=== PATIENT | male | born 1980 | race Caucasian/White ===

== ENCOUNTER 2016-06-13 18:12 | Emergency (ER) | payer MEDICARE, MEDICAID ==
[~2016-06-13 18:12] MED LIST: /ATOR40TA PO; /PARO37TCR OR; /QUET10TA; /QUET10TA PO; ADDE10CA3 OR; ADDE20CA PO; ADDE30TA PO; ALPRTAB PO; ANBEEL MT; ATEN100T OR; ATEN100T PO; ATEN50TA2 OR; ATEN50TA2 PO; BUDE150T OR; BUSP15TA OR; CELE10TA; CLON1TAB PO; CLOT1CRE4 TOP; COLA100C PO; CONC18TA OR; EFFEXOR XR; FOLI1TAB2 PO; HYDR7.5T PO; HYDR7.5T38 PO; IBUP600T26 PO; IMOD2TAB16 PO; KEFL500C OR; KEFL750C OR; LEVO25TABR OR; LEVO25TABR PO; LORA2TA FT; LORA2TA PO; LORA2TAB OR; MAAL600C PO; MINI2CAP PO; MV-OCAP PO; NEUR300C OR; NEXI1CAP4 PO; NEXI20CA; OXYC1CON3 PO; PARO40TA87 PO; PAXI20TA; PAXI30TA2 PO; PAXI40TA OR; PREV15CA OR; PREV30CA6 PO; PRIL40CA PO; REME15TA OR; REME15TA PO; SERO1TAB3 PO; SERO50TA PO; SEROQUEL; SYNT100T PO; SYNT75TA PO; TENO1TAB5 PO; TRAZ100T OR; TRAZ100T2 PO; TRAZ50TA OR; TYLE325T5 PO; VIST50CA PO; WELL100T OR; WELL100T2 OR; WELLTAB40 PO; XANA1TAB2 PO; XANA2TAB2 OR; ZOFR20TA PO; [UNRECOGNIZED DRUG - OTHER]; [UNRECOGNIZED DRUG - OTHER]; lioresal PO
[2016-06-13] MEDS ORDERED: PENICILLIN V POTASSIUM 500 MG TAB PO ONE (21:30)
--- NOTE | 2016-06-13 21:52 | EDDOCDS ---
Nurse's Notes [facility] Name: Brad Mckinnon Age: 36 yrs Sex: Male : 1980 Arrival Date: 06/13/2016 Time: 18:12 Bed I8 / 16 Private MD: NO PRIMARY PHYSICIAN, . Diagnosis: Dental caries-with pain Presentation: 06/13 18:33 Presenting complaint: Patient states: "my tooth is broken." Pt reports right upper ead tooth broke a few weeks ago. "it's probably infected." pt c/o upper mouth pain. Adult Sepsis Screening: The patient does not have new or worsening altered mentation. Patient's respiratory rate is less than 22. Systolic blood pressure is greater than 100. Patient has a qSOFA score of 0- Negative Sepsis Screen. Suicide/Homicide risk assessment- the patient denies having any suicidal and/or homicidal ideations and does not present with any other emotional, behavioral or mental health complaints. 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 Transition of care: patient was not received from another setting of care. 18:33 Acuity: MARTHA Level 5 ead 18:33 Method Of Arrival: Walkin/Carried/Asstd ead Triage Assessment: 18:36 General: Appears in no apparent distress, comfortable, Behavior is appropriate for age, ead cooperative. Pain: Location: mouth Pain currently is 7 out of 10 on a pain scale. HIV screening NA for this visit Offered previously. EENT: Reports pain in mouth. Derm: Skin is pink, warm & dry. Historical: - Allergies: Haldol (Dystonic reaction); - Home Meds: 1. Inderal LA 80 mg Oral Cs24 twice a day 2. Adderall XR 20 mg oral cp24 three times a day 3. Ativan 1 mg Oral tab once daily 4. Wellbutrin XL 300 mg oral Tb24 once daily 5. Prilosec 20 mg Oral cpDR once daily 6. Synthroid 112 mcg Oral tab 1 tab once daily - PMHx: Depression; ECT; Chronic Pain; hyperlipidemia; Hypertension; Hypothyroidism; panic attach with agrophobia; panic attack with agorphobia; PTSD; Anxiety; ADHD; - PSHx: none; - Social history: Smoking status: Patient states former smoker of tobacco. No barriers to communication noted, The patient speaks fluent Maltese, Speaks appropriately for age. - : The pt / caregiver states he / she is not on anticoagulants. Home medication list is obtained from the patient, [employer] import data. - Exposure Risk Screening:: None identified. Vital Signs: 18:14 BP 156 / 99; Pulse 97; Resp 18 S; Temp 99.4(O); Pulse Ox 99% on R/A; Weight 102.06 kg gr2 (R); Height 5 ft. 9 in. (175.26 cm) (R); Pain 8/10; 21:22 BP 145 / 105 RA Sitting (auto/lg); Pulse 110; Resp 22; Temp 98.6(O); Pulse Ox 97% ; bnb Pain 6/10; 18:14 Body Mass Index 33.23 (102.06 kg, 175.26 cm) gr2 Vitals: 18:14 Log In Time: June 13, 2016 at 18:14. gr2 ED Course: 18:14 Patient visited by Khushi Baker. gr2 18:14 NO PRIMARY PHYSICIAN, . is Private Physician. gr2 18:14 Patient moved to Waiting gr2 18:16 Patient visited by Khushi Baker. gr2 18:23 Patient moved to Pre RCE sew 18:34 Triage Initiated ead 19:51 Christy Lewis,RN is Primary Nurse. sls1 19:51 Patient moved to I8 / 16 sls1 20:04 [facility] F[facility] le 20:26 Patient visited by Laura Romero FNP. le 20:38 Aravind Lewis MD is Referral Physician. le 20:42 Patient visited by Laura Romero FNP. le 21:15 [facility] Payment Agreement was scanned into [email or web address] and attached to record. gjb 21:22 Patient visited by May Jenkins PCA. bnb Administered Medications: 21:51 Drug: Penicillin VK 500 mg [penicillin V potassium 250 mg tablet (2 tabs)] Route: PO; af2 21:51 Not Given (Patient Refused): Naproxen 500 mg PO once; administer with food or milk af2 Order Results: There are currently no results for this order. Outcome: 20:38 Discharge ordered by Provider. le 21:52 Patient left the ED. af2 Signatures: Laura Romero FNP [employer]PECTOR [employer]SEMBLIES [employer] INSTALLATIONS Ericka Hinton, RN RN sls1 Rob, Khushi Maldonado gr2 Debbie,Christy,RN RN deion Meeks,DAVID Etienne RN af2 Jada Lewis Brittney, TERMITE EXTERMINATOR TERMITE EXTERMINATOR bnb MTDD
--- NOTE | 2016-06-13 21:52 | EDDOCDS ---
Physician Documentation [facility] Name: Brad Mckinnon Age: 36 yrs Sex: Male : 1980 Arrival Date: 06/13/2016 Time: 18:12 Bed I8 / 16 Private MD: NO PRIMARY PHYSICIAN, . Disposition: 06/13 20:42 Critical Care: Critical care not applicable. le Disposition: 06/13/16 20:38 Discharged to Home/Self Care. Impression: Dental caries - with pain. - Condition is Stable. - Discharge Instructions: Dental Pain. - Prescriptions for Naprosyn 500 mg Oral Tablet - take 1 tablet by ORAL route 2 times per day take with food; 30 tablet. penicillin V potassium 500 mg Oral Tablet - take 1 tablet by ORAL route 4 times per day for 10 days; 40 tablet. - Medication Reconciliation, Local Pharmacy Hours form. - Follow up: Aravind Lewis MD; When: Call to arrange an appointment; Reason: Recheck today's complaints, Continuance of care. - Problem is new. - Symptoms are unchanged. - Notes: Return to the ED for facial swelling, inability to open your mouth more than the width of 2 fingers, difficulty swallowing/drooling, fever or any other concerns Historical: - Allergies: Haldol (Dystonic reaction); - Home Meds: 1. Inderal LA 80 mg Oral Cs24 twice a day 2. Adderall XR 20 mg oral cp24 three times a day 3. Ativan 1 mg Oral tab once daily 4. Wellbutrin XL 300 mg oral Tb24 once daily 5. Prilosec 20 mg Oral cpDR once daily 6. Synthroid 112 mcg Oral tab 1 tab once daily - PMHx: Depression; ECT; Chronic Pain; hyperlipidemia; Hypertension; Hypothyroidism; panic attach with agrophobia; panic attack with agorphobia; PTSD; Anxiety; ADHD; - PSHx: none; - Social history: Smoking status: Patient states former smoker of tobacco. No barriers to communication noted, The patient speaks fluent Persian, Speaks appropriately for age. - : The pt / caregiver states he / she is not on anticoagulants. Home medication list is obtained from the patient, [employer] import data. - Exposure Risk Screening:: None identified. Vital Signs: 18:14 BP 156 / 99; Pulse 97; Resp 18 S; Temp 99.4(O); Pulse Ox 99% on R/A; Weight 102.06 kg / gr2 225 lbs (R); Height 5 ft. 9 in. (175.26 cm) (R); Pain 8/10; 21:22 BP 145 / 105 RA Sitting (auto/lg); Pulse 110; Resp 22; Temp 98.6(O); Pulse Ox 97% ; bnb Pain 6/10; 18:14 Body Mass Index 33.23 (102.06 kg, 175.26 cm) gr2 MDM: 20:35 Penicillin VK 500 mg PO once ordered. le 20:39 Naproxen 500 mg PO once; administer with food or milk ordered. le 21:01 Financial registration complete. rocky 21:15 [facility] Payment Agreement was scanned into [employer] and attached to record. rocky Administered Medications: 21:51 Drug: Penicillin VK 500 mg [penicillin V potassium 250 mg tablet (2 tabs)] Route: PO; af2 21:51 Not Given (Patient Refused): Naproxen 500 mg PO once; administer with food or milk af2 Signatures: Laura Romero, WARPING MILL OPERATOR Christy BravoRN RN Jaimie Alanis RN RN af2 Jada Lewis The chart was reviewed and I authenticate all verbal orders and agree with the evaluation and treatment provided.Attachments: 21:15 [facility] Payment Agreement rocky [email or web address]
--- NOTE | 2016-06-15 22:53 | EDDOCDS ---
Physician Documentation [facility] Name: Brad Mckinnon Age: 36 yrs Sex: Male : 1980 Arrival Date: 06/13/2016 Time: 18:12 Bed I8 / 16 Private MD: NO PRIMARY PHYSICIAN, . Disposition: 06/13 20:42 Critical Care: Critical care not applicable. le Disposition: 06/13/16 20:38 Discharged to Home/Self Care. Impression: Dental caries - with pain. - Condition is Stable. - Discharge Instructions: Dental Pain. - Prescriptions for Naprosyn 500 mg Oral Tablet - take 1 tablet by ORAL route 2 times per day take with food; 30 tablet. penicillin V potassium 500 mg Oral Tablet - take 1 tablet by ORAL route 4 times per day for 10 days; 40 tablet. - Medication Reconciliation, Local Pharmacy Hours form. - Follow up: Aravind Lewis MD; When: Call to arrange an appointment; Reason: Recheck today's complaints, Continuance of care. - Problem is new. - Symptoms are unchanged. - Notes: Return to the ED for facial swelling, inability to open your mouth more than the width of 2 fingers, difficulty swallowing/drooling, fever or any other concerns Historical: - Allergies: Haldol (Dystonic reaction); - Home Meds: 1. Inderal LA 80 mg Oral Cs24 twice a day 2. Adderall XR 20 mg oral cp24 three times a day 3. Ativan 1 mg Oral tab once daily 4. Wellbutrin XL 300 mg oral Tb24 once daily 5. Prilosec 20 mg Oral cpDR once daily 6. Synthroid 112 mcg Oral tab 1 tab once daily - PMHx: Depression; ECT; Chronic Pain; hyperlipidemia; Hypertension; Hypothyroidism; panic attach with agrophobia; panic attack with agorphobia; PTSD; Anxiety; ADHD; - PSHx: none; - Social history: Smoking status: Patient states former smoker of tobacco. No barriers to communication noted, The patient speaks fluent Occitan, Speaks appropriately for age. - Family history: Not pertinent. - : The pt / caregiver states he / she is not on anticoagulants. Home medication list is obtained from the patient, [employer] import data. - Exposure Risk Screening:: None identified. Vital Signs: 18:14 BP 156 / 99; Pulse 97; Resp 18 S; Temp 99.4(O); Pulse Ox 99% on R/A; Weight 102.06 kg / gr2 225 lbs (R); Height 5 ft. 9 in. (175.26 cm) (R); Pain 8/10; 21:22 BP 145 / 105 RA Sitting (auto/lg); Pulse 110; Resp 22; Temp 98.6(O); Pulse Ox 97% ; bnb Pain 6/10; 18:14 Body Mass Index 33.23 (102.06 kg, 175.26 cm) gr2 MDM: 20:35 Penicillin VK 500 mg PO once ordered. le 20:39 Naproxen 500 mg PO once; administer with food or milk ordered. le 21:01 Financial registration complete. [facility] : [facility] Payment Agreement was scanned into [employer] and attached to record. b 06/14 09:45 T-Sheet-- Draft Copy was scanned into [employer] and attached to record. 09:45 Other: DRUG UTILIZATION REPORT was scanned into [employer] and attached to record. 12:31 T-Sheet-- Draft Copy was scanned into [employer] and attached to record. Administered Medications: 06/13 21:51 Drug: Penicillin VK 500 mg [penicillin V potassium 250 mg tablet (2 tabs)] Route: PO; af2 21:51 Not Given (Patient Refused): Naproxen 500 mg PO once; administer with food or milk af2 Signatures: Jamison Benavides RN RN ms2 Trish Ribera, Reg Reg gb Laura Romero, Christy Issa RN RN ead Fulton, Amber, RN RN af2 Jada Lewis [facility] The chart was reviewed and I authenticate all verbal orders and agree with the evaluation and treatment provided.Attachments: : [facility] Payment Agreement [facility] 12:31 T-Sheet-- Draft Copy Chart Complete MTDD
--- NOTE | 2016-06-15 22:53 | EDDOCDS ---
Nurse's Notes [facility] Name: Brad Mckinnon Age: 36 yrs Sex: Male : 1980 Arrival Date: 06/13/2016 Time: 18:12 Bed I8 / 16 Private MD: NO PRIMARY PHYSICIAN, . Diagnosis: Dental caries-with pain Presentation: 06/13 18:33 Presenting complaint: Patient states: "my tooth is broken." Pt reports right upper ead tooth broke a few weeks ago. "it's probably infected." pt c/o upper mouth pain. Adult Sepsis Screening: The patient does not have new or worsening altered mentation. Patient's respiratory rate is less than 22. Systolic blood pressure is greater than 100. Patient has a qSOFA score of 0- Negative Sepsis Screen. Suicide/Homicide risk assessment- the patient denies having any suicidal and/or homicidal ideations and does not present with any other emotional, behavioral or mental health complaints. Status: Patient is not a well services operator or dependent. Transition of care: patient was not received from another setting of care. 18:33 Acuity: MARTHA Level 5 ead 18:33 Method Of Arrival: Walkin/Carried/Asstd ead Triage Assessment: 18:36 General: Appears in no apparent distress, comfortable, Behavior is appropriate for age, ead cooperative. Pain: Location: mouth Pain currently is 7 out of 10 on a pain scale. HIV screening NA for this visit Offered previously. EENT: Reports pain in mouth. Derm: Skin is pink, warm & dry. Historical: - Allergies: Haldol (Dystonic reaction); - Home Meds: 1. Inderal LA 80 mg Oral Cs24 twice a day 2. Adderall XR 20 mg oral cp24 three times a day 3. Ativan 1 mg Oral tab once daily 4. Wellbutrin XL 300 mg oral Tb24 once daily 5. Prilosec 20 mg Oral cpDR once daily 6. Synthroid 112 mcg Oral tab 1 tab once daily - PMHx: Depression; ECT; Chronic Pain; hyperlipidemia; Hypertension; Hypothyroidism; panic attach with agrophobia; panic attack with agorphobia; PTSD; Anxiety; ADHD; - PSHx: none; - Social history: Smoking status: Patient states former smoker of tobacco. No barriers to communication noted, The patient speaks fluent Danish, Speaks appropriately for age. - Family history: Not pertinent. - : The pt / caregiver states he / she is not on anticoagulants. Home medication list is obtained from the patient, [employer] import data. - Exposure Risk Screening:: None identified. Screenin:30 Screening information is obtained from prior medical records. Fall risk: No risks ms2 identified. Assistance ADL's: requires no assistance with activities of daily living. Abuse/DV Screen: The patient / caregiver reports he/she is: not in a situation that causes fear, pain or injury. Nutritional screening: No deficits noted. Advance Directives: Currently, there is no health care proxy. There is no active DNR order. There is no living will. There is no Power of Faith Healer. Advance directive information has not previously been placed in an [facility] medical record. Further advance directive information is declined. home support is adequate. Assessment: 21:30 Adult Sepsis Screening: The patient does not have new or worsening altered mentation. ms2 Patient's respiratory rate is less than 22. Systolic blood pressure is greater than 100. Patient has a qSOFA score of 0- Negative Sepsis Screen. General: Appears in no apparent distress, Behavior is cooperative. Neurological: Level of Consciousness is awake, alert, obeys commands. Respiratory: No deficits noted. Airway is patent Respiratory effort is even, unlabored, Respiratory pattern is regular, symmetrical. Derm: Skin is pink, warm & dry. Musculoskeletal: Range of motion intact in all extremities. Vital Signs: 18:14 BP 156 / 99; Pulse 97; Resp 18 S; Temp 99.4(O); Pulse Ox 99% on R/A; Weight 102.06 kg gr2 (R); Height 5 ft. 9 in. (175.26 cm) (R); Pain 8/10; 21:22 BP 145 / 105 RA Sitting (auto/lg); Pulse 110; Resp 22; Temp 98.6(O); Pulse Ox 97% ; bnb Pain 6/10; 18:14 Body Mass Index 33.23 (102.06 kg, 175.26 cm) gr2 Vitals: 18:14 Log In Time: June 13, 2016 at 18:14. gr2 ED Course: 18:14 Patient visited by Khushi Baker. gr2 18:14 NO PRIMARY PHYSICIAN, . is Private Physician. gr2 18:14 Patient moved to Waiting gr2 18:16 Patient visited by Khushi Baker. gr2 18:23 Patient moved to Pre RCE sew 18:34 Triage Initiated ead 19:51 Christy Lewis,DAVID is Primary Nurse. sls1 19:51 Patient moved to I8 / 16 sls1 20:04 [facility] le 20:26 Patient visited by Laura Romero FNP. le 20:38 Aravind Lewis MD is Referral Physician. le 20:42 Patient visited by Laura Romero FNP. le 21:15 [facility] [place] Payment Agreement was scanned into [employer] and attached to record. gjb 21:22 Patient visited by May Jenkins PCA. bnb 21:30 The patient / caregiver is instructed regarding the plan of care and ED course. ms2 21:30 No IV's were initiated during this patient's visit. No procedures done that require ms2 assistance. 06/14 09:45 T-Sheet-- Draft Copy was scanned into [employer] and attached to record. gb 09:45 Other: DRUG UTILIZATION REPORT was scanned into [employer] and attached to record. gb 12:31 T-Sheet-- Draft Copy was scanned into [employer] and attached to record. gb Administered Medications: 06/13 21:51 Drug: Penicillin VK 500 mg [penicillin V potassium 250 mg tablet (2 tabs)] Route: PO; af2 21:51 Not Given (Patient Refused): Naproxen 500 mg PO once; administer with food or milk af2 Order Results: There are currently no results for this order. Outcome: 20:38 Discharge ordered by Provider. le 21:30 Discharge Assessment: patient administered narcotics - no. The following High Risk ms2 Discharge criteria are identified: None. Discharged to home ambulatory. Condition: stable. Discharge instructions given to patient, Instructed on discharge instructions, follow up and referral plans. medication usage, Demonstrated understanding of instructions, medications, Pt was receptive of discharge instructions/ teaching. Prescriptions given X 2 faxed. No special radiology studies were completed. Property sent home with patient. 21:52 Patient left the ED. af2 Signatures: Jamison Benavides RN RN ms2 Trish Ribera, Reg Reg gb Laura Romero FNP FNP le Strong, Shannon, RN RN sls1 Carissa Rivas Gainslee gr2 Christy Lewis,RN RN deion Meeks,Jaimie,RN RN ekta2 Jada Lewis Brittney, GRADING MACHINE OPERATOR GRADING MACHINE OPERATOR bnb Chart Complete MTDD
--- NOTE | 2016-06-15 22:53 | EDDOCDS ---
Physician Documentation [facility] Name: Brad Mckinnon Age: 36 yrs Sex: Male : 1980 Arrival Date: 06/13/2016 Time: 18:12 Bed I8 / 16 Private MD: NO PRIMARY PHYSICIAN, . Disposition: 06/13 20:42 Critical Care: Critical care not applicable. le Disposition: 06/13/16 20:38 Discharged to Home/Self Care. Impression: Dental caries - with pain. - Condition is Stable. - Discharge Instructions: Dental Pain. - Prescriptions for Naprosyn 500 mg Oral Tablet - take 1 tablet by ORAL route 2 times per day take with food; 30 tablet. penicillin V potassium 500 mg Oral Tablet - take 1 tablet by ORAL route 4 times per day for 10 days; 40 tablet. - Medication Reconciliation, Local Pharmacy Hours form. - Follow up: Aravind Lewis MD; When: Call to arrange an appointment; Reason: Recheck today's complaints, Continuance of care. - Problem is new. - Symptoms are unchanged. - Notes: Return to the ED for facial swelling, inability to open your mouth more than the width of 2 fingers, difficulty swallowing/drooling, fever or any other concerns Historical: - Allergies: Haldol (Dystonic reaction); - Home Meds: 1. Inderal LA 80 mg Oral Cs24 twice a day 2. Adderall XR 20 mg oral cp24 three times a day 3. Ativan 1 mg Oral tab once daily 4. Wellbutrin XL 300 mg oral Tb24 once daily 5. Prilosec 20 mg Oral cpDR once daily 6. Synthroid 112 mcg Oral tab 1 tab once daily - PMHx: Depression; ECT; Chronic Pain; hyperlipidemia; Hypertension; Hypothyroidism; panic attach with agrophobia; panic attack with agorphobia; PTSD; Anxiety; ADHD; - PSHx: none; - Social history: Smoking status: Patient states former smoker of tobacco. No barriers to communication noted, The patient speaks fluent Slovenian, Speaks appropriately for age. - Family history: Not pertinent. - : The pt / caregiver states he / she is not on anticoagulants. Home medication list is obtained from the patient, [employer] import data. - Exposure Risk Screening:: None identified. Vital Signs: 18:14 BP 156 / 99; Pulse 97; Resp 18 S; Temp 99.4(O); Pulse Ox 99% on R/A; Weight 102.06 kg / gr2 225 lbs (R); Height 5 ft. 9 in. (175.26 cm) (R); Pain 8/10; 21:22 BP 145 / 105 RA Sitting (auto/lg); Pulse 110; Resp 22; Temp 98.6(O); Pulse Ox 97% ; bnb Pain 6/10; 18:14 Body Mass Index 33.23 (102.06 kg, 175.26 cm) gr2 MDM: 20:35 Penicillin VK 500 mg PO once ordered. le 20:39 Naproxen 500 mg PO once; administer with food or milk ordered. le 21:01 Financial registration complete. [facility] : [facility] Payment Agreement was scanned into [employer] and attached to record. b 06/14 09:45 T-Sheet-- Draft Copy was scanned into [employer] and attached to record. 09:45 Other: DRUG UTILIZATION REPORT was scanned into [employer] and attached to record. 12:31 T-Sheet-- Draft Copy was scanned into [employer] and attached to record. Administered Medications: 06/13 21:51 Drug: Penicillin VK 500 mg [penicillin V potassium 250 mg tablet (2 tabs)] Route: PO; af2 21:51 Not Given (Patient Refused): Naproxen 500 mg PO once; administer with food or milk af2 Signatures: Jamison Benavides RN RN ms2 Trish Ribera, Reg Reg gb Laura Romero, Christy Issa RN RN ead Fulton, Amber, RN RN af2 Jada Lewis [facility] The chart was reviewed and I authenticate all verbal orders and agree with the evaluation and treatment provided.Attachments: : [facility] Payment Agreement [facility] 12:31 T-Sheet-- Draft Copy Chart Complete MTDD
== END 2016-06-13 21:52 | disposition home or self-care (01) ==
LOC: M ED 18:12
DX: K02.9 Dental caries, unspecified (principal); F32.9 Major depressive disorder, single episode, unspecified; G89.4 Chronic pain syndrome; E78.5 Hyperlipidemia, unspecified; I10 Essential (primary) hypertension; E03.9 Hypothyroidism, unspecified; F41.0 Panic disorder [episodic paroxysmal anxiety]; F43.10 Post-traumatic stress disorder, unspecified; F90.9 Attention-deficit hyperactivity disorder, unspecified type; Z87.891 Personal history of nicotine dependence; Z79.899 Other long term (current) drug therapy; Z88.8 Allergy status to other drugs, medicaments and biological substances

== ENCOUNTER 2016-06-17 15:43 | Inpatient (IN) | payer MEDICARE, MEDICAID ==
[~2016-06-17] VITALS: Ht 172.7 cm; Wt 99.8 kg
[2016-06-17 16:56] LABS: MEAN CORPUSCULAR HEMOGLOBIN 33.6 pg (27.0-33.0); MEAN CORPUSCULAR HGB CONC 35.1 g/dl (32.0-36.5); MEAN CORPUSCULAR VOLUME 95.8 fl (80.0-96.0); WHITE BLOOD COUNT 10.1 K/mm3 (4.0-10.0)
[2016-06-17 16:59] LABS: AMPHETAMINES LEVEL URINE NEGATIVE (NEGATIVE); BENZODIAZEPINES URINE NEGATIVE (NEGATIVE); COCAINE METABOLITE URINE NEGATIVE (NEGATIVE); CONTROL LINE INT CTR LINE PRESENT; METHADONE URINE NEGATIVE (NEGATIVE); OPIATES URINE NEGATIVE (NEGATIVE); TRICYCLIC ANTIDEPRESS URINE NEGATIVE (NEGATIVE)
[2016-06-17 17:18] LABS: ALBUMIN 4.3 GM/DL (3.2-5.2); ALKALINE PHOSPHATASE 84 U/L (45-117); ALT/SGPT 56 U/L (12-78); ANION GAP 10 MEQ/L (8-16); AST/SGOT 33 U/L (15-37); BILIRUBIN,DIRECT 0.1 MG/DL (0.0-0.2); BILIRUBIN,TOTAL 0.8 MG/DL (0.2-1.0); BLOOD UREA NITROGEN 20 MG/DL (7-18); CALCIUM LEVEL 9.1 MG/DL (8.5-10.1); CARBON DIOXIDE LEVEL 25 MEQ/L (21-32); CHLORIDE LEVEL 106 MEQ/L (98-107); CREATININE FOR GFR 1.01 MG/DL (0.70-1.30); GLOMERULAR FILTRATION RATE > 60.0 (>60); GLUCOSE, FASTING 110 MG/DL (70-105); POTASSIUM SERUM 4.7 MEQ/L (3.5-5.1); SODIUM LEVEL 141 MEQ/L (136-145); TOTAL PROTEIN 8.6 GM/DL (6.4-8.2)
[2016-06-17] MEDS ORDERED: ALPRAZolam 0.25 MG TAB As Ordered ONE (18:16)
[2016-06-17] MEDS ORDERED: PENI50TA PO (20:05)
[2016-06-17] MEDS ORDERED: SYNT112T2 PO (20:05)
[2016-06-17] MEDS ORDERED: WELLTAB40 PO (20:05)
[2016-06-17] MEDS ORDERED: AMBI5TAB PO (20:12)
[2016-06-17] MEDS ORDERED: PROP120C PO (20:12)
[2016-06-17] MEDS ORDERED: ATOR1TAB21 PO (20:12)
[2016-06-17] MEDS ORDERED: NAPR500T2 PO (20:12)
[2016-06-17] MEDS ORDERED: LORazepam 1 MG TAB As Ordered ONE (20:51)
--- NOTE | 2016-06-17 21:00 | EDDOCDS ---
Nurse's Notes [facility] Name: Brad Mckinnon Age: 36 yrs Sex: Male : 1980 Arrival Date: 06/17/2016 Time: 15:43 Bed [facility] Private MD: NO PRIMARY PHYSICIAN, . Diagnosis: Adjustment disorder with depressed mood;Anxiety disorder, unspecified Presentation: 06/17 16:00 Presenting complaint: Patient states: patient states that he has been receiving ECT ml6 treatments in [place], states began feeling increasing depressed despite treatments and stopping his substance abuse, states SI. Mental Health Triage Level: Level 2: The patient displays active suicidal ideations. Adult Sepsis Screening: The patient does not have new or worsening altered mentation. Patient's respiratory rate is less than 22. Systolic blood pressure is greater than 100. Patient has a qSOFA score of 0- Negative Sepsis Screen. Mental Health Triage Level: Level 2: The patient displays active suicidal ideations. Suicide/Homicide risk assessment- The patient admits to and/or has been reported to be having suicidal ideations. Status: Patient is not a track service worker or dependent. Transition of care: patient was not received from another setting of care. Red Flag criteria, patient assessed and taken directly to a bed. 16:00 Acuity: MARTHA Level 3 ml6 16:00 Method Of Arrival: Walkin/Carried/Asstd ml6 Triage Assessment: 16:05 General: Appears in no apparent distress, Behavior is appropriate for age, cooperative. ml6 Pain: Denies pain. HIV screening NA for this visit Offered previously. Neurological: No deficits noted. Level of Consciousness is awake, alert, Oriented to person, place, time, Busgirl are equal bilaterally Moves all extremities. Full function Gait is steady, Speech is normal. Cardiovascular: No deficits noted. Capillary refill < 3 seconds is brisk in bilateral fingers toes Heart tones S1 S2 present Edema is absent. Pulses are all present. Respiratory: No deficits noted. Airway is patent Respiratory effort is even, unlabored, Respiratory pattern is regular, symmetrical, Breath sounds are clear bilaterally. GI: No deficits noted. Historical: - Allergies: Haldol (Dystonic reaction); - Home Meds: 1. Synthroid 112 mcg Oral tab 1 tab once daily (Last dose: 06/17/2016 07:00) 2. Wellbutrin XL 300 mg Oral Tb24 once daily (Last dose: 06/17/2016 07:00) - PMHx: ADHD; Anxiety; Chronic Pain; Depression; ECT; hyperlipidemia; Hypertension; Hypothyroidism; panic attach with agrophobia; PTSD; - PSHx: none; - Social history: Smoking status: Patient states was never smoker of tobacco. Patient uses states abuses Rx amphetamines, No barriers to communication noted, Speaks appropriately for age. - Family history: Not pertinent. - : The pt / caregiver states he / she is not on anticoagulants. Home medication list is obtained from the patient. - Exposure Risk Screening:: None identified. Screenin:30 Screening information is obtained from the patient. Fall risk: No risks identified. [facility] Assistance ADL's: requires no assistance with activities of daily living. Abuse/DV Screen: The patient / caregiver reports he/she is: not in a situation that causes fear, pain or injury. Nutritional screening: No deficits noted. Advance Directives: There is no active DNR order. home support is adequate. Assessment: 16:30 General: Appears in no apparent distress, comfortable, Behavior is appropriate for age, cjh cooperative. Pain: Denies pain. Neurological: Level of Consciousness is awake, alert, Oriented to person, place, time. Respiratory: Airway is patent Respiratory effort is even, unlabored, Respiratory pattern is regular, symmetrical. Derm: Skin is pink, warm & dry. 17:30 General: Appears in no apparent distress, comfortable, Behavior is appropriate for age, cjh cooperative, no visibledistress, quiet on stretcher, denies needs, cooperative, will continue to monitor. 19:33 General: Appears in no apparent distress, comfortable, Behavior is cooperative, slm pleasant. General: pt resting quietly on stretcher security observing . Respiratory: Airway is patent Respiratory effort is even, unlabored. 20:55 General: Appears in no apparent distress, comfortable, Behavior is anxious, slm cooperative. General: pt medicated at this time c/o feeling anxious .. Respiratory: Airway is patent Respiratory effort is even, unlabored. Respiratory: Airway is patent Respiratory effort is even, unlabored. Derm: Skin is pink, warm & dry. Mental Health Eval: 18:22 Mental health consult is initiated at 06:00. Status: The patient is not a ml4 track service worker or dependent. [facility] Behavioral Health: The patient is not an established patient of [facility] Behavioral Health. Referral Information: Evaluation referral is generated by the patient himself / herself. The patient was referred for evaluation because increase depression, pt wanted to walk into oncoming traffic while walking down [facility] . Subjective: The patients chief complaint is pt states, "I wanted to actually kill myself today, but I walked here instead." Pt reports suffering from suicidal thoughts for awhile, but today the thoughts scared him due to actually wanting to walk into oncoming traffic. Pt denies any specific triggers, but states "I've been in denial about slipping back into my depression." Pt reports he lives alone, wanting to sleep to escape his depression. Pt states, "I can't even escape my depression, because I can't sleep." Admits visiting his Father over [place], which was a struggle due to father's alcoholism. Pt has a significant psychiatric hx , last hospitalized to [facility] and discharged 05/21/16. Admits he received 7 ECT bilateral treatments which reports was beneficial. He continues to express SI with plan to "walk into on coming traffic." Admits a hx of PTSD, post 02/03. 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 . 18:52 Subjective: The patients chief complaint is Pt continues to voice SI with plan, unable ml4 to CFS and is requesting hospitalization. . Delusions are denied. Patient's mood is anxious, depressed, Hallucinations are denied. Mental Health history: depression, abusing marijuana. narcotics. post-traumatic stress disorder, Mental Health Admissions: Numerous hospitalizations, last hospitalized to [place] Apr, 2016 Current Outpatient Mental Health Services: None. Current living environment is The patient currently lives alone. The patient is single. Patient presents to Emergency Department with the following symptoms within the past 2 weeks: anxiety, decreased appetite, depressed mood, feelings of helplessness/hopelessness, poor concentration, poor impulse control, relational problem, sleep disturbance - insomnia, suicidal ideation with plan for walking into oncoming traffic . Substance abuse: Patient uses marijuana weekly. Mental status exam: Patients appearance is appropriate, Patient's behavior is cooperative, Speech is normal. Affect is appropriate. Mood is anxious. Hallucinations are denied. Appetite is poor. Memory is good. Energy level is normal. Content of thought is depressive. of suicide with plan Thought process is intact. Cognitive level is oriented to person, place, time and situation Patient's insight is fair. Judgement is poor. Rapport with interviewer is good. Suicidal Ideation present with a plan to kill self by walk into on-coming traffic . Homicidal ideation is denied. Disposition: Medically cleared for disposition by Laura KINSEY Psychiatric Consult is performed by phone with Dr Romy Vivas. [facility] Admission Criteria: The patient is experiencing suicidal ideation. The patient requires continuous observation and/or control to protect self, others or property. The patient's care requires a multi-modal treatment plan under close supervision and coordination due to the complexity and severity of the patient's symptoms. The patient requires administration and monitoring of psychoactive medications by skilled medical providers due to the side effects of the psychoactive medications or significant dosage adjustments. Legal Status: Patient's legal status will be Emergency admission: . [place] Safe Act: [place] Safe Act is applicable to this patient. The patient poses a risk to self or other and the Nursing Inspector Glass Or Mirror has been notified. He/She will enter the patient's data. DSM-V Differential Diagnosis: Major Depressive Disorder unspecified (F33.9) Posttraumatic Stress Disorder (F 43.10). Insurance Pre-Certification: Medicare, pt reports "straight Medicaid." [facility] was accessed and listed as "Medicaid" . Narrative: Notice of Status and Rights, FAQ, and Bill of Rights was given at bedside. Vital Signs: 15:44 BP 151 / 101; Pulse 106; Resp 18 S; Temp 98.6; Pulse Ox 100% on R/A; Weight 102.06 kg dd6 (R); Height 5 ft. 8 in. (172.72 cm) (R); 19:16 BP 148 / 87; Pulse 77; Resp 18; Temp 97.6(TE); Pulse Ox 100% ; Pain 5/10; mas 20:58 Pulse 77; Resp 18; Temp 97.9; Pulse Ox 100% ; slm 15:44 Body Mass Index 34.21 (102.06 kg, 172.72 cm) dd6 Vitals: 15:44 Log In Time: June 17, 2016 at 15:42. dd6 15:45 RN notified that patient meets Red Flag criteria. dd6 ED Course: 15:44 Patient visited by Jamal Rivera PCA. dd6 15:44 NO PRIMARY PHYSICIAN, . is Private Physician. dd6 15:44 Patient moved to Waiting dd6 15:56 Patient moved to [address] 16:02 Triage Initiated ml6 16:06 Patient visited by Ru Morgan Security Aide. pjf 16:10 Pt greeted and oriented to ED. Patient advised of names of staff involved in care, pjf location of call childs, wait times and NPO status. Patient has correct armband on for positive identification. Placed in psych safe attire. Bed in low position. Call light in reach. Side rails up X 1. Security observing. Property removed, secured in. Door closed. Noise minimized. Visitors limited. Report received from rn - psych. triage level#2, +si, cooperative \\T\\ this time. The patient / caregiver is instructed regarding the plan of care and ED course. Psych Safety Check: Location: Psych Room. Visual Assessment: Cooperative. 16:13 Patient visited by Ru Morgan Security Aide. pjf 16:30 Psych Safety Check: Location: Psych Room. Visual Assessment: Cooperative. pjf 16:30 No IV's were initiated during this patient's visit. No procedures done that require [facility] assistance. 16:47 Patient visited by Ru Morgan Security Aide. pjf 16:50 Larua Romero FNP is [facility]. le 17:03 Patient visited by Laura Romero FNP. le 17:03 Patient visited by Laura Romero FNP. le 17:12 Patient visited by Ru Morgan Security Aide. pjf 17:37 Patient visited by Ru Morgan Security Aide. pjf 17:52 Patient visited by Patricia Collins PSA. ml4 18:04 Patient visited by Ru Morgan Security Aide. pjf 18:17 Patient visited by Ru Morgan Security Aide. pjf 18:36 Patient visited by Ru Morgan Security Aide. pjf 18:56 Patient visited by Prince Nelson. mas 18:56 Chikis Cuevas LPN is Primary Nurse. slm 19:09 Romy Vivas is Hospitalizing Provider. le 19:12 [facility] Payment Agreement was scanned into [place] and attached to record. zo 19:32 Patient visited by Prince Nelson. mas 19:34 Patient visited by Chikis Cuevas LPN. slm 19:45 Patient visited by Prince Nelson. mas 19:45 E Legal paperwork was scanned into [place] and attached to record. ml4 20:10 Patient visited by Prince Nelson. mas 20:15 Patient visited by Prince Nelson. mas 20:31 Patient visited by Prince Nelson. mas 20:34 Olga Maurer research quality assurance specialist. ys2 20:35 Olga Maurer research quality assurance specialist. ys2 20:52 Patient visited by Chikis Cuevas LPN. [facility] Administered Medications: 18:44 Drug: ALPRAZolam 1 mg [alprazolam 0.25 mg tablet (4 tabs)] Route: [facility]; [facility] 20:12 Follow up: Response: Anxiety is improved [facility] 20:53 Drug: LORazepam 1 mg [lorazepam 1 mg tablet (1 tabs)] Route: PO; [facility] Attachments: 19:45 E Legal paperwork ml4 Order Results: Lab Order: Acetaminophen Level; SPEC'M 06/17/16 16:30 Test: ACETAMINOPHEN LEVEL; Value: < 2.0; Range: 10.0-30.0; Abnormal: Below low normal; Units: UG/ML; Status: F Lab Order: Basic Metabolic Profile; SPEC'M 06/17/16 16:30 Test: GLUCOSE, FASTING; Value: 110; Range: 70-105; Abnormal: Above high normal; Units: MG/DL; Status: F Test: BLOOD UREA NITROGEN; Value: 20; Range: 7-18; Abnormal: Above high normal; Units: MG/DL; Status: F Test: CREATININE FOR GFR; Value: 1.01; Range: 0.70-1.30; Units: MG/DL; Status: F Test: GLOMERULAR FILTRATION RATE; Value: > 60.0; Range: >60; Status: F Test: SODIUM LEVEL; Value: 141; Range: 136-145; Units: MEQ/L; Status: F Test: POTASSIUM SERUM; Value: 4.7; Range: 3.5-5.1; Units: MEQ/L; Status: F Test: CHLORIDE LEVEL; Value: 106; Range: 98-107; Units: MEQ/L; Status: F Test: CARBON DIOXIDE LEVEL; Value: 25; Range: 21-32; Units: MEQ/L; Status: F Test: ANION GAP; Value: 10; Range: 8-16; Units: MEQ/L; Status: F Test: CALCIUM LEVEL; Value: 9.1; Range: 8.5-10.1; Units: MG/DL; Status: F Test Note: ; Units are mL/min/1.73 m2 Chronic Kidney Disease Staging per NKF: Stage I & II GFR >=60 Normal to Mildly Decreased Stage III GFR 30-59 Moderately Decreased Stage IV GFR 15-29 Severely Decreased Stage V GFR <15 Very Little GFR Left ESRD GFR <15 on TRACK ANNOUNCER Lab Order: Complete Blood Count; [facility]' 06/17/16 16:30 Test: WHITE BLOOD COUNT; Value: 10.1; Range: 4.0-10.0; Abnormal: Above high normal; Units: K/mm3; Status: F Test: RED BLOOD COUNT; Value: 5.38; Range: 4.30-6.10; Units: M/mm3; Status: F Test: HEMOGLOBIN; Value: 18.1; Range: 14.0-18.0; Abnormal: Above high normal; Units: g/dl; Status: F Test: HEMATOCRIT; Value: 51.5; Range: 42.0-52.0; Units: %; Status: F Test: MEAN CORPUSCULAR VOLUME; Value: 95.8; Range: 80.0-96.0; Units: fl; Status: F Test: MEAN CORPUSCULAR HEMOGLOBIN; Value: 33.6; Range: 27.0-33.0; Abnormal: Above high normal; Units: pg; Status: F Test: MEAN CORPUSCULAR HGB CONC; Value: 35.1; Range: 32.0-36.5; Units: g/dl; Status: F Test: RED CELL DISTRIBUTION WIDTH; Value: 13.0; Range: 11.5-14.5; Units: %; Status: F Test: PLATELET COUNT, AUTOMATED; Value: 246; Range: 150-450; Units: k/mm3; Status: F Lab Order: Drug Eval Toxicology ED Only; SPEC'M 06/17/16 16:30 Test: AMPHETAMINES LEVEL URINE; Value: NEGATIVE; Range: NEGATIVE; Status: F Test: BARBITURATES URINE; Value: NEGATIVE; Range: NEGATIVE; Status: F Test: BENZODIAZEPINES URINE; Value: NEGATIVE; Range: NEGATIVE; Status: F Test: CANNABINOIDS URINE; Value: POSITIVE; Range: NEGATIVE; Abnormal: Above high normal; Status: F Test: COCAINE METABOLITE URINE; Value: NEGATIVE; Range: NEGATIVE; Status: F Test: METHADONE URINE; Value: NEGATIVE; Range: NEGATIVE; Status: F Test: OPIATES URINE; Value: NEGATIVE; Range: NEGATIVE; Status: F Test: TRICYCLIC ANTIDEPRESS URINE; Value: NEGATIVE; Range: NEGATIVE; Status: F Test Note: ; FALSE POSITIVE RESULTS CAN BE CAUSED BY THE USE OF PANTOPRAZOLE (PROTONIX). Lab Order: Ethyl Alcohol (ethanol); SPEC'M 06/17/16 16:30 Test: ETHYL ALCOHOL (ETHANOL); Value: < 0.003; Range: 0.000-0.010; Units: %; Status: F Lab Order: Liver Profile; SPEC'M 06/17/16 16:30 Test: AST/SGOT; Value: 33; Range: 15-37; Units: U/L; Status: F Test: ALT/SGPT; Value: 56; Range: 12-78; Units: U/L; Status: F Test: ALKALINE PHOSPHATASE; Value: 84; Range: 45-117; Units: U/L; Status: F Test: BILIRUBIN,TOTAL; Value: 0.8; Range: 0.2-1.0; Units: MG/DL; Status: F Test: BILIRUBIN,DIRECT; Value: 0.1; Range: 0.0-0.2; Units: MG/DL; Status: F Test: TOTAL PROTEIN; Value: 8.6; Range: 6.4-8.2; Abnormal: Above high normal; Units: GM/DL; Status: F Test: ALBUMIN; Value: 4.3; Range: 3.2-5.2; Units: GM/DL; Status: F Test: ALBUMIN/GLOBULIN RATIO; Value: 1.00; Range: 1.00-1.93; Status: F Lab Order: Salicylate Level; SPEC'M 06/17/16 16:30 Test: SALICYLATE LEVEL; Value: < 1.7; Range: 5.0-30.0; Abnormal: Below low normal; Units: MG/DL; Status: F Lab Order: Thyroid Stimulating Hormone; SPEC'M 06/17/16 16:30 Test: THYROID STIMULATING HORMONE; Value: 1.230; Range: 0.358-3.740; Units: uIU/ML; Status: F Outcome: 16:30 No special radiology studies were completed. [facility] 19:09 Decision to Hospitalize by Provider. le 20:56 Discharge Assessment: Patient awake, alert and oriented x 3. No cognitive and/or slm functional deficits noted. Patient verbalized understanding of disposition instructions. patient administered narcotics - no. The following High Risk Discharge criteria are identified: None. Admitted to Psych accompanied by tech, via wheelchair, with chart. Condition: stable. 20:58 Patient left the ED. slm Signatures: Kamala Lilly, RN RN [facility] Ru Morgan, Security Aide Securf Patricia Collins, PSA PSA ml4 [place], Shahanaeavinay zo Laura Romero, MANDREL PULLER MANDREL PULLER le Jamal Rivera, DIPPER AND BAKER DIPPER AND BAKER dd6 Levon Chester RN RN ml6 Prince Nelson JaneRN RN [facility] Chikis Cuevas LPN SLASHER RUNNER m Olga Maurer ys2 Corrections: (The following items were deleted from the chart) 19:04 18:52 Insurance Pre-Certification: Medicare, pt reports "straight Medicaid." . ml4 ml4 MTDD
--- NOTE | 2016-06-17 21:00 | EDDOCDS ---
Physician Documentation [facility] Name: Brad Mckinnon Age: 36 yrs Sex: Male : 1980 Arrival Date: 06/17/2016 Time: 15:[address] [facility] Private MD: NO PRIMARY PHYSICIAN, . Disposition: 06/17/16 19:09 Hospitalization ordered by Romy Vivas for Inpatient Admission. Preliminary diagnosis are Adjustment disorder with depressed mood, Anxiety disorder, unspecified. - Bed requested for Admit. - Status is Inpatient Admission. slm - Condition is Stable. - Problem is an acute exacerbation. - Symptoms are unchanged. Historical: - Allergies: Haldol (Dystonic reaction); - Home Meds: 1. Synthroid 112 mcg Oral tab 1 tab once daily (Last dose: 06/17/2016 07:00) 2. Wellbutrin XL 300 mg Oral Tb24 once daily (Last dose: 06/17/2016 07:00) - PMHx: ADHD; Anxiety; Chronic Pain; Depression; ECT; hyperlipidemia; Hypertension; Hypothyroidism; panic attach with agrophobia; PTSD; - PSHx: none; - Social history: Smoking status: Patient states was never smoker of tobacco. Patient uses states abuses Rx amphetamines, No barriers to communication noted, Speaks appropriately for age. - Family history: Not pertinent. - : The pt / caregiver states he / she is not on anticoagulants. Home medication list is obtained from the patient. - Exposure Risk Screening:: None identified. Vital Signs: 06/17 15:44 BP 151 / 101; Pulse 106; Resp 18 S; Temp 98.6; Pulse Ox 100% on R/A; Weight 102.06 kg / dd6 225 lbs (R); Height 5 ft. 8 in. (172.72 cm) (R); 19:16 BP 148 / 87; Pulse 77; Resp 18; Temp 97.6(TE); Pulse Ox 100% ; Pain 5/10; mas 20:58 Pulse 77; Resp 18; Temp 97.9; Pulse Ox 100% ; slm 15:44 Body Mass Index 34.21 (102.06 kg, 172.72 cm) dd6 MDM: 15:58 Consult PFS/PSA/Slat Basket Maker Machine ordered. ml6 15:58 Consult PFS/PSA/Slat Basket Maker Machine: Patient's case requires discussion with on-call ml6 Psychiatrist ordered. 15:58 PSA/PFS to call Nursing Tube Making Machine Operator, to enter patient data on [place] Safe Act if patient ml6 involuntarily admitted or transferred for SI or HI ordered. 15:58 Confirm accurate psychiatric medication list and times of last dosage ordered. ml6 15:58 Detain Pt Until Medically/PFS Cleared ordered. ml6 15:59 Acetaminophen Level Ordered. EDMS 15:59 Basic Metabolic Profile Ordered. EDMS 15:59 Complete Blood Count Ordered. EDMS 15:59 Drug Eval Toxicology ED Only Ordered. EDMS 15:59 Ethyl Alcohol (ethanol) Ordered. EDMS 15:59 Liver Profile Ordered. EDMS 15:59 Salicylate Level Ordered. EDMS 15:59 Thyroid Stimulating Hormone Ordered. EDMS 16:21 REGULAR DIET PLASTIC RUIZ+DIET ordered. EDMS 17:40 ALPRAZolam Tablet 1 mg PO once ordered. le 18:05 Consult PFS/PSA/Slat Basket Maker Machine complete. ml4 18:05 Consult PFS/PSA/Slat Basket Maker Machine: Patient's case requires discussion with on-call 4 Psychiatrist complete. 18:05 PSA/PFS to call Nursing Tube Making Machine Operator, to enter patient data on [place] Safe [place] if patient ml4 involuntarily admitted or transferred for SI or HI complete. 18:41 Acetaminophen Level Reviewed. le 18:41 Basic Metabolic Profile Reviewed. le 18:41 Complete Blood Count Reviewed. le 18:41 Drug Eval Toxicology ED Only Reviewed. le 18:41 Liver Profile Reviewed. le 18:41 Salicylate Level Reviewed. le 18:41 Ethyl Alcohol (ethanol) Reviewed. le 18:41 Thyroid Stimulating Hormone Reviewed. le 18:43 The patient has been medically cleared for psychiatric evaluation, admission and/or le transfer. 19:03 Financial registration complete. zo 19:12 [facility] Payment Agreement was scanned into [employer] and attached to record. zo 19:41 Admit to [facility]: ordered. EDMS 19:45 [facility] Legal paperwork was scanned into [employer] and attached to record. ml4 20:45 LORazepam 1 mg PO once ordered. le Administered Medications: 18:44 Drug: ALPRAZolam 1 mg [alprazolam 0.25 mg tablet (4 tabs)] Route: PO; [facility] 20:12 Follow up: Response: Anxiety is improved m 20:53 Drug: LORazepam 1 mg [lorazepam 1 mg tablet (1 tabs)] Route: PO; slm Signatures: Dispatcher [employer] EDMS Patricia Collins, PSA PSA ml4 Aruna Hameed Lisa, Levon Rodriguez, RN RN ml6 Roselia GarciaRN RN cj Chikis Cuevas,SLIP MIXER SLIP MIXER slm The chart was reviewed and I authenticate all verbal orders and agree with the evaluation and treatment provided.Attachments: 19:12 [facility] Payment Agreement zo MTDD
[2016-06-17 21:30] VITALS: BP 161/101
[2016-06-17] MEDS ORDERED: MOM 30ML SUSPENSION UDC PO PRN (21:45)
[2016-06-17] MEDS ORDERED: OLANZapine ORAL DISINTEGRATING TAB 5MG PO PRN (21:45)
[2016-06-17] MEDS ORDERED: ACETAMINOPHEN TAB 650MG DOSE (2X325MG) PO PRN (21:45)
[2016-06-17] MEDS: LORazepam 1 MG TAB PO PRN (22:14)
[2016-06-17] MEDS: traZODone 50 MG TAB PO PRN (22:14)
[2016-06-18 06:32] VITALS: BP 130/72
[2016-06-18] MEDS: LEVOTHYROXINE 0.112 MG TAB (112 MCG) PO SCH (06:43)
[2016-06-18] MEDS ORDERED: buPROPion **XL** TABLET 150MG (WELLBUTRIN XL) PO SCH (09:00)
[2016-06-18] MEDS: LORazepam 1 MG TAB PO PRN ×2 (09:51→18:59)
--- NOTE | 2016-06-18 11:02 | HPEPDOC ---
Medical History and Physical Date of Admission Jun 17, 2016 at 21:00 History and Physical PCP: None ATTENDING: Dr. Nader Bautista HPI: 36 yoM admitted to [facility] for unspecified depressive disorder, being medically examined today. Patient was seen at the emergency department 06/13/16 and was treated with Penicillin VK for dental caries and advised to use naproxen 500 mg by mouth twice a day for discomfort. He states his symptoms have been improving. He does report that he has been off his antibiotic since admission and notices recurrence of his discomfort as well as some sinus congestion. He notices postnasal drip and drainage in his throat. He reports no cough. No chest discomfort. No fevers or chills. Denies sore throat or ear pain/ pressure. Denies any weakness, fatigue, CASTILLO, CP, SOB, cough, palpitations, abdominal pain, N/V/D or changes in bowel or bladder habits. PMHx: Hyperlipidemia Hypothyroid Chronic pain Allergic rhinitis Hypertension Depression Anxiety ADHD Insomnia Panic attack PTSD Agoraphobia ECT 7 admission at [place] 05/10 Substance use PSHX: Denies SOCHX: Resides in: [place], currently living alone Marital Status: Single Kids: None Employment: Unemployed Tobacco use: Denies ETOH: Denies Illicit Drugs: Marijuana, Vicodin, previous amphetamine use although states none recently. IV Drug Use: Denies Tattoos done unprofessionally: Denies FAMHX: Mother: Alive, well Father: Alive, alcohol abuse, depression Siblings: Alive, well Children: None Unexpected deaths due to medical reasons: None. ROS: As noted in HPI, otherwise 11pt ROS of systems reviewed and unremarkable PE: GEN: 36 yo M, appears stated age. Well-nourished, well developed. No acute distress. Alert and oriented x 3. Pleasant, interactive. HEENT: Normocephalic, atraumatic. Pupils are equal, round, and reactive to light. Extraocular movements are intact. No nystagmus appreciated. Sclera are nonicteric. Conjunctiva without injection. Nose midline. Nasal turbinates without drainage noted. EACs both patent BL. TMs both visualized and kaba with good cone of light, no bulging or erythema. No facial asymmetry. Mild tenderness with palpation over the maxillary sinuses bilaterally. Moist mucous membranes. Dentition poor, several dental caries are noted. Pharynx pink and moist. Neck supple, trachea midline. No lymphadenopathy or thyromegaly appreciated. CHEST: Regular rate and rhythm, +S1, +S2 LUNGS: Clear to auscultation bilaterally. No wheezes, rales, or rhonchi. Breathing appears symmetric and easy. Patient is speaking in full sentences. No accessory muscle use. ABD: Round, soft, non-tender, non-distended. +Bowel sounds throughout. No rebound or guarding. No costovertebral angle tenderness. EXT: Pulses 2+ bilaterally dorsalis pedis and radial. No lower extremity edema appreciated. SKIN: [place], dry, warm. Capillary refill <2sec. No rashes. NEURO: Alert and oriented x 3. Cranial nerves III-XII are intact. No focal deficits appreciated. EK12/09/15 sinus bradycardia, 52 bpm, prominent voltage. A&P: 36 yoM admitted to [facility] for unspecified depressive disorder 1. Psych. Plan per Psychiatry. EKG on file. 2. Hyperlipidemia. Continue Lipitor 20 mg daily. Update fasting lipids in a.m. 3. Hypothyroidism. Continue Synthroid 112 g by mouth daily. TSH is noted within normal limits. 4. Hypertension. Continue propranolol 120 mg by mouth daily with hold parameters. 5. Dental caries. Patient will finish course of Penicillin VK 500 mg by mouth 4 times a day. Patient initially was prescribed this 06/13/16 in the emergency department. He has missed some doses. Continue for 7 days. Per patient he states his symptoms have been improving since he started the medication. Continue Tylenol 650 mg every 4 hours as needed. 6. URI. As above. 7. Allergic rhinitis. Add Flonase 2 sprays each nostril daily. 8. Follow up. No Primary Care Provider. Will attempt to establish PCP on discharge. 9. Cannabinoid use. Vital Signs Vital Signs Label Value Date Time Patient Temperature 95.4 degrees F 06/18/16 0632 Temperature Source Tympanic 06/18/16 0632 Pulse 63 06/18/16 0632 Respiratory Rate 19 bpm 06/18/16 0632 Blood Pressure Assessment 130/72 (91) 06/18/16 0632 Laboratory Data Labs 24H Laboratory Tests 2 06/17/16 16:30: Acetaminophen Level < 2.0L, Aspartate Amino Transf (AST/SGOT) 33, Alanine Aminotransferase (ALT/SGPT) 56, Alkaline Phosphatase 84, Total Bilirubin 0.8, Direct Bilirubin 0.1, Albumin 4.3, Albumin/Globulin Ratio 1.00, Anion Gap 10, Calcium Level 9.1, Ethyl Alcohol Level < 0.003, Glomerular Filtration Rate > 60.0, Salicylates Level < 1.7L, Thyroid Stimulating Hormone (TSH) 1.230, Total Protein 8.6H, Urine Amphetamine Level NEGATIVE, Urine Benzodiazepines Screen NEGATIVE, Urine Cannabinoids POSITIVEH, Urine Cocaine Metabolite NEGATIVE, Urine Opiates Screen NEGATIVE, Urine Barbiturates, Qualitative NEGATIVE, Urine Methadone Screen NEGATIVE, Urine Tricyclic Antidepressants NEGATIVE CBC/BMP Laboratory Tests 06/17/16 16:30 Red Blood Count 5.38, Mean Corpuscular Volume 95.8, Mean Corpuscular Hemoglobin 33.6 H, Mean Corpuscular Hemoglobin Concent 35.1, Red Cell Distribution Width 13.0 Home Medications Scheduled Atorvastatin Calcium (Atorvastatin Calcium) 20 Mg Tab 20 MG PO DAILY Bupropion HCl (Wellbutrin Xl) 300 Mg Tab 300 MG PO DAILY Levothyroxine Sodium (Synthroid) 112 Mcg Tab 112 MCG PO DAILY Penicillin V Potassium (Penicillin V Potassium) 500 Mg Tab 500 MG PO QID FILLED 06/14/16 FOR 10 DAYS Propranolol HCl (Propranolol HCl ER) 120 Mg Cap 120 MG PO DAILY Scheduled PRN Naproxen (Naproxen) 500 Mg Tab 500 MG PO BID PRN PRN PAIN Zolpidem Tartrate (Ambien) 5 Mg Tab 5 MG PO QHS PRN PRN SLEEP Allergies Coded Allergies: Haloperidol (Verified Adverse Reaction, Severe, SEVERE DYSTONIA, 08/29/12) Risperidone (Verified Adverse Reaction, Severe, SEVERE DYSTONIA, 08/29/12) Ziprasidone (Verified Adverse Reaction, Severe, SEVERE DYSTONIA, 08/29/12) Carleen Cole Jun 18, 2016 11:02
[2016-06-18] MEDS: PROPRANOLOL 60 MG LA CAP PO SCH (11:42)
[2016-06-18] MEDS: PENICILLIN V POTASSIUM 500 MG TAB PO SCH ×4 (11:42→20:20)
[2016-06-18] MEDS: ATORVASTATIN 20 MG TAB PO SCH (11:42)
[2016-06-18] MEDS: FLUTICASONE PROP 0.05% NASAL SPRAY 16 GM (FLONASE) SCH (11:43)
[2016-06-18 12:18] VITALS: BP 136/77
[2016-06-18] MEDS ORDERED: BACITRACIN OINT 30GM TOP PRN (12:30)
--- NOTE | 2016-06-18 17:02 | HPEPDOC ---
[facility] History & Physical History and Physical DATE OF ADMISSION: Jun 17, 2016 at 21:00 CHIEF COMPLAINT: "I end up here, um, this is a repeat for severe depression, SI , crippling anxiety", no substance abuse ". HISTORY OF THE PRESENT ILLNESS: Patient states he was recently in the psych unit at [facility]. Patient reports he has received 7 ECT treatments. Patient was to return and receive more ECT treatments as an outpatient. Patient states that was unreasonable as he lives here and cannot get to [place] regularly. Patient states he stopped his meds approximately 2 weeks ago. Patient reports she self prescribed himself be appropriate in which she had had in the past because he didn't feel like the Zoloft he was getting at the hospital was working. Patient now realizes that this was probably not true. Patient states he went cold turkey from benzos at approximately the same time 2 weeks ago supposedly was on Xanax 1 mg 3 times a day while in the hospital. Patient now realizes he should not of put himself back on his be appropriate. Patient feels that this may be contributing to his current anxiety level. Patient states his sleep prior to admission had been poor. Patient cannot qualify amount of time he has slept on average. Patient also reports he has night terrors 7 out of 7 nights from the PTSD he had from 911. Patient states the only medicine that helps him with night terrors is his benzos. Patient also reports that propanolol that he takes for his blood pressure is a great help with his anxiety as well. Patient states mom is somewhat supportive dad is a "trainwreck". PAST PSYCHIATRIC HISTORY: Patient states his first experience with mental health services was when he was 11 years old after an overdose on pills after his parents . Patient states he was hospitalized for this at a [facility] in [place]. Patient reports he has greater than 20 admissions to a hospital. Patient has only one admission for this suicide attempt at 11 years old. Patient reports not having any consistent therapy that has worked on his issues on a regular basis. MEDICAL HISTORY: Patient states he has hypertension and hypothyroid, denies all other health issues. HOME MEDICATIONS: Please see below. Patient states home meds were bupropion 300 mg by mouth every morning, Xanax 1 mg 3 times a day, Zoloft, unknown dose by mouth every morning. ALLERGIES: Please see below. Patient reports an allergy to Haldol. FAMILY PSYCHIATRIC HISTORY: Patient states dad had major depressive disorder. Maternal grandfather had grief induced psychotic break after his 's sister has depression. A paternal uncle has anxiety and depression. SOCIAL HISTORY: Patient states he is single with no children. Patient reports she has a supportive mom's sister and brother. SUBSTANCE ABUSE HISTORY: Patient denies any alcohol issues however past history shows he had alcohol abuse in the past. Patient states his drugs of choice were Adderall to get out of bed after also being addicted to opiates. Patient does not claim to be clean or sober at this time. LEGAL HISTORY: Patient denies any legal history. VITAL SIGNS: Blood pressure 130/72, pulse 63, respirations 19, temperature 95.4. LABORATORY DATA: Please see below. Patient UDS on admission positive for cannabis. MENTAL STATUS EXAMINATION: Patient is a 36 year old male, who is talkative, somewhat cooperative, average grooming of overweight build. Patient noted to have a steady gait. Speech: Is circumstantial, flight of ideas, increased rate, normal volume, articulate, coherent, and spontaneous. Thought processes: Fairly clear, somewhat goal directed. Rate of thoughts: Increased. Thought content: Rational, Logical, circumstantial. Abstract reasoning: Adequate. Computation: Adequate. Associations: Circumstantial. Abnormal or psychotic thoughts: Patient denies hallucinations, delusions, obsessions or compulsions, homicidal ideation. Patient does currently have suicidal ideation. Patient feels he is preoccupied with "shooting myself in the head "or "walk into traffic ". Patient denies any thoughts of self-harm and/or cutting. Judgment: Fair. Insight: Poor. Oriented to: Time, person, place and surroundings. Recent and Remote Memory: Patient feels short-term memory has been affected by ECT treatments. Patient denies any other memory issues. Attention Span and Concentration: Fair. Language: Normal. Fund of knowledge: Adequate. Mood: "Flat, shitty, I'm depressed ". Affect: Appropriate, Flat, Expansive at times. ASSESSMENT: Patient is greeted in hallway and readily accepts assessment. Patient has related to staff that he has a Social Security disability hearing that is coming up. Patient appears to have numerous hospitalizations throughout [facility] for psychiatric reasons. Patient states his mother who is a sr. social media & mobile manager in [employer] said that he should come in to be admitted and not be discharged until he has appropriate housing. This appears to be what the patient is doing. Patient states he slept fairly well for 6 hours with the trazodone and Zyprexa, had no night terrors. DIAGNOSES: 1. Major depressive disorder, recurrent 2. History of substance abuse. PROBLEM LIST: 1. Risk for suicide 2. Noncompliance 3. Ineffective coping MANAGEMENT PLAN: Maintain safety precautions. Patient to attend groups and participate in unit programming to develop coping strategies. Patient to be engaged in discharge planning process to ensure safe and effective discharge plan. Patient to identify and schedule a PCP appointment upon discharge. Patient to schedule and attend therapy and medication management appointments upon discharge. Patient to consider substance abuse continuing support and treatment. ESTIMATED LENGTH OF STAY: 5-7 days. Laboratory Data 24H Labs Laboratory Tests 2 06/18/16 11:28: Triglycerides Level 181H, Cholesterol Level 215H, HDL Cholesterol 50, LDL Cholesterol 128.8H, Cholesterol/HDL Ratio 4.300, Non-HDL Cholesterol (LDL + VLDL ) 165 Medications Scheduled Atorvastatin Calcium (Atorvastatin Calcium) 20 Mg Tab 20 MG PO DAILY (Reported ) Bupropion HCl (Wellbutrin Xl) 300 Mg Tab 300 MG PO DAILY (Reported) Levothyroxine Sodium (Synthroid) 112 Mcg Tab 112 MCG PO DAILY (Reported) Penicillin V Potassium (Penicillin V Potassium) 500 Mg Tab 500 MG PO QID ( Reported) FILLED 06/14/16 FOR 10 DAYS Propranolol HCl (Propranolol HCl ER) 120 Mg Cap 120 MG PO DAILY (Reported) Scheduled PRN Naproxen (Naproxen) 500 Mg Tab 500 MG PO BID PRN PRN PAIN (Reported) Zolpidem Tartrate (Ambien) 5 Mg Tab 5 MG PO QHS PRN PRN SLEEP (Reported) Allergies Coded Allergies: Haloperidol (Verified Adverse Reaction, Severe, SEVERE DYSTONIA, 08/29/12) Risperidone (Verified Adverse Reaction, Severe, SEVERE DYSTONIA, 08/29/12) Ziprasidone (Verified Adverse Reaction, Severe, SEVERE DYSTONIA, 08/29/12) RICO PIERSON NP Jun 18, 2016 17:02
[2016-06-18 18:00] VITALS: BP 124/72
[2016-06-18] MEDS: SERTRALINE HCL 50 MG TAB PO SCH (20:19)
[2016-06-18] MEDS ORDERED: LORazepam 0.5 MG TAB PO PRN (21:45)
[2016-06-18] MEDS: traZODone 50 MG TAB PO PRN (22:09)
[2016-06-18] MEDS: hydrOXYzine 50 MG TAB PO PRN (22:09)
[2016-06-18] MEDS: MAALOX 30 ML SUSP *UDC PO PRN (22:42)
[2016-06-19] MEDS: LEVOTHYROXINE 0.112 MG TAB (112 MCG) PO SCH (06:02)
[2016-06-19 06:29] VITALS: BP 139/90
[2016-06-19 06:55] LABS: MEAN CORPUSCULAR HEMOGLOBIN 33.1 pg (27.0-33.0); MEAN CORPUSCULAR HGB CONC 34.8 g/dl (32.0-36.5); MEAN CORPUSCULAR VOLUME 95.2 fl (80.0-96.0)
[2016-06-19 07:16] LABS: ANION GAP 8 MEQ/L (8-16); BLOOD UREA NITROGEN 16 MG/DL (7-18); CALCIUM LEVEL 8.8 MG/DL (8.5-10.1); CARBON DIOXIDE LEVEL 27 MEQ/L (21-32); CHLORIDE LEVEL 108 MEQ/L (98-107); CREATININE FOR GFR 0.92 MG/DL (0.70-1.30); GLOMERULAR FILTRATION RATE > 60.0 (>60); GLUCOSE, FASTING 86 MG/DL (70-105); POTASSIUM SERUM 4.2 MEQ/L (3.5-5.1); SODIUM LEVEL 143 MEQ/L (136-145)
[2016-06-19] MEDS: hydrOXYzine 50 MG TAB PO PRN (07:50)
[2016-06-19] MEDS: PENICILLIN V POTASSIUM 500 MG TAB PO SCH ×4 (08:17→20:37)
[2016-06-19] MEDS: FLUTICASONE PROP 0.05% NASAL SPRAY 16 GM (FLONASE) SCH (08:17)
[2016-06-19] MEDS: PROPRANOLOL 60 MG LA CAP PO SCH (08:18)
[2016-06-19] MEDS: buPROPion **XL** TABLET 150MG (WELLBUTRIN XL) PO SCH (08:19)
[2016-06-19] MEDS: ATORVASTATIN 20 MG TAB PO SCH (08:19)
[2016-06-19] MEDS: MAALOX 30 ML SUSP *UDC PO PRN ×3 (09:45→19:55)
--- NOTE | 2016-06-19 15:29 | IPNPDOC ---
[facility] Progress Note Progress Note DATE OF SERVICE: 06/19/16 CHIEF COMPLAINT: "I end up here, um, this is a repeat for severe depression, SI , crippling anxiety", no substance abuse." HISTORY OF THE PRESENT ILLNESS: Patient states he was recently in the psych unit at [facility]. Patient reports he has received 7 ECT treatments. Patient was to return and receive more ECT treatments as an outpatient. Patient states that was unreasonable as he lives here and cannot get to [place] regularly. Patient states he stopped his meds approximately 2 weeks ago. Patient reports he self prescribed what he thought would be appropriate. Pt. appears to be drug seeking for specific meds of Benzo's and amphetamines. Pt. has a prior history of amphetamine abuse in the past, states it was one of his drugs of choice. Patient states he (supposedly) went cold turkey from benzos at approximately the same time 2 weeks ago. Pt. states he had been prescribed Xanax 1 mg, 3 times a day while in the hospital. Patient now realizes he should not of put himself back on his be appropriate. Patient feels that this may be contributing to his current anxiety level. Patient states his sleep prior to admission had been poor. Patient cannot qualify amount of time he has slept on average. Patient also reports he has night terrors 7 out of 7 nights from the PTSD he had from 911. Patient states the only medicine that helps him with night terrors is his benzos. Patient also reports that propanolol that he takes for his blood pressure is a great help with his anxiety as well. Patient states mom is somewhat supportive dad is a "trainwreck" per pt. . PAST PSYCHIATRIC HISTORY: Patient states his first experience with mental health services was when he was 11 years old after an overdose on pills after his parents . Patient states he was hospitalized for this at a [facility] in [place]. Patient reports he has greater than 20 admissions to a hospital. Patient has only one admission for this suicide attempt at 11 years old. Patient reports not having any consistent therapy that has worked on his issues on a regular basis. MEDICAL HISTORY: Patient states he has hypertension and hypothyroid, denies all other health issues. HOME MEDICATIONS: Please see below. Patient states home meds were bupropion 300 mg by mouth every morning, Xanax 1 mg 3 times a day, Zoloft, unknown dose by mouth every morning. FAMILY PSYCHIATRIC HISTORY: Patient states dad had major depressive disorder. Maternal grandfather had grief induced psychotic break after his 's sister has depression. A paternal uncle has anxiety and depression. SOCIAL HISTORY: Patient states he is single with no children. Patient reports she has a supportive mom's sister and brother. SUBSTANCE ABUSE HISTORY: Patient denies any alcohol issues however past history shows he had alcohol abuse in the past. Patient states his drugs of choice were Adderall to get out of bed after also being addicted to opiates. Patient does not claim to be clean or sober at this time. LEGAL HISTORY: Patient denies any legal history. VITAL SIGNS: Please see below. 97.5 75 18 139/90 NEW TEST RESULTS: Please see below. Patient UDS on admission positive for cannabis. CURRENT MEDICATIONS: - Bupropion 150 mg po q am for depression/anxiety. - Sertraline 50 mg po q hs for depression/anxiety. - Hydroxyzine Hcl 50 mg po q 6h prn for anxiety/agitation. - Trazodone 50 mg po qhs prn for insomnia. MENTAL STATUS EXAMINATION: Patient is a 36 year old male, who is pleasant and cooperative, average grooming of overweight build. Patient noted to have a steady gait. Patient is currently dressed in his own clothes. Speech: Is circumstantial, decreased rate from yesterday, normal volume, articulate, coherent and spontaneous. Thought processes: Clearing, somewhat goal directed. Rate of thoughts: Decreased. Thought content: Rational, Logical, circumstantial. Abstract reasoning: Adequate. Computation: Adequate. Associations: Circumstantial. Abnormal or psychotic thoughts: Patient denies hallucinations, delusions, paranoia, obsessions or compulsions. Patient denies homicidal or suicidal ideation. Answers "Not today". Patient denies any thoughts of self-harm and/or cutting. Judgment: Fair. Insight: Fair. Oriented to: Time, person, place and surroundings. Recent and Remote Memory: Patient feels short-term memory has been affected by ECT treatments. Patient denies any other memory issues. Pt. does feel today that this improves each day he is further out from the ECT treatment. Attention Span and Concentration: Fair. Language: Normal. Fund of knowledge: Adequate. Mood: "So far, good today". Affect: Appropriate, Flat, Expansive at times. DIAGNOSES: 1. Major depressive disorder, recurrent 2. History of substance abuse. ASSESSMENT: Patient is greeted in hallway and readily accepts to meet with provider. Patient has related to staff that he has a Social Security disability hearing that is coming up. Patient appears to have numerous hospitalizations throughout [facility] for psychiatric reasons. Patient states his mother who is a social insurance adviser in [employer] [facility] [employer] [facility] [employer] said that he should come in to be admitted and not be discharged until he has appropriate housing. This appears to be what the patient is trying to do. Patient states he slept "Good" for 7 hours with the trazodone. Pt. states he has had no night terrors since admission. Pt. reports when he woke up today he felt well rested with an increased energy level. Pt. appears to be clearer and more rational today. Pt. state he is willing to be discharged to his apartment as long as he can be connected with the outpatient program. Pt. tells provider he has been using some strategies he has learned for coping such as showering when nervous, exercise or walking, talking to others or friends that he trusts. Pt. admits to provider that his issues are his responsibility as he did not followup for aftercare services as he should have. Pt. is gaining this kind of insight and losing the rigid posturing of demands that he had on admission. Pt. appears to be willing to work with provider and staff to have a successful discharge. Pt. also contracts with provider that if he is readmitted for similar reasons that we will have to look at longer term care at [facility]. Pt. is in agreement and understands plan for discharge. MANAGEMENT PLAN: Maintain safety precautions. Patient to attend groups and participate in unit programming to develop coping strategies. Patient to be engaged in discharge planning process to ensure safe and effective discharge plan. Patient to identify and schedule a PCP appointment upon discharge. Patient to schedule and attend therapy and medication management appointments upon discharge. Patient to consider substance abuse continuing support and treatment. TIME SPENT: 25 minutes. Vital Signs Vital Signs Date Time Temp Pulse Resp B/P Pulse Ox O2 Delivery O2 Flow Rate FiO2 06/19/16 08:18 67 128/59 06/19/16 06:29 97.5 18 Laboratory Data 24H Labs Laboratory Tests 2 06/19/16 06:35: Anion Gap 8, Blood Urea Nitrogen 16, Creatinine 0.92, Sodium Level 143, Potassium Level 4.2, Chloride Level 108H, Carbon Dioxide Level 27, Calcium Level 8.8, Glomerular Filtration Rate > 60.0 CBC/BMP Laboratory Tests 06/19/16 06:35 Calcium Level 8.8, Red Blood Count 4.95, Mean Corpuscular Volume 95.2, Mean Corpuscular Hemoglobin 33.1 H, Mean Corpuscular Hemoglobin Concent 34.8, Red Cell Distribution Width 13.0 Current Medications Current Medications Acetaminophen (Tylenol) 650 mg Q6HP PRN PO HEADACHE or DISCOMFORT; Start at 21:45; Stop 07/17/16 at 21:44 Al Hydrox/Mg Hydrox/Simethicone (Mylanta) 30 ml Q4HP PRN PO HEARTBURN/ INDIGESTION Last administered on 06/19/16 09:45; Start 06/17/16 at 21:45; Stop 07/17/16 at 21:44 Atorvastatin Calcium (Lipitor) 20 mg DAILY PO Last administered on 06/19/16 08 :19; Start 06/18/16 at 09:00; Stop 07/18/16 at 08:59 Bacitracin (Bacitracin Oint) 1 dose BIDP PRN TOP REDNESS/IRRITATION; Start at 12:30; Stop 07/18/16 at 12:29 Bupropion HCl (Wellbutrin Xl) 150 mg DAILY PO Last administered on 06/19/16 08 :19; Start 06/19/16 at 09:00; Stop 07/19/16 at 08:59 Bupropion HCl (Wellbutrin Xl) 300 mg DAILY PO Last administered on 06/18/16 09 :51; Start 06/18/16 at 09:00; Stop 06/18/16 at 19:15; Status DC Fluticasone Propionate (Flonase 0.05% Nasal [place]) 2 spray DAILY NA Last administered on 06/19/16 08:17; Start 06/18/16 at 09:00; Stop 07/18/16 at 08:59 Home Med (Med Rec Complete!) ASDIRECTED XX ; Start 06/17/16 at 20:15; Stop at 20:15; Status DC Hydroxyzine HCl (Atarax) 50 mg Q6HP PRN PO ANXIETY/AGITATION Last administered on 06/19/16 07:50; Start 06/18/16 at 19:15; Stop 07/18/16 at 19:14 Levothyroxine Sodium (Synthroid) 0.112 mg DAILY@06 PO Last administered on 06/19 06:02; Start 06/18/16 at 06:00; Stop 07/18/16 at 05:59 Lorazepam (Ativan) 0.5 mg Q12HP PRN PO ANXIETY/AGITATION; Start 06/18/16 at 21: 45; Stop 06/25/16 at 21:44 Lorazepam (Ativan) 1 mg Q8HP PRN PO ANXIETY/AGITATION Last administered on 06/18 18:59; Start 06/17/16 at 21:45; Stop 06/18/16 at 19:15; Status DC Magnesium Hydroxide (Milk Of Magnesia) 30 ml DAILYPRN PRN PO CONSTIPATION; Start 06/17/16 at 21:45; Stop 07/17/16 at 21:44 Olanzapine (ZyPREXA ZYDIS) 5 mg Q6HP PRN PO ANXIETY/AGITATION Last administered on 06/17/16 23:02; Start 06/17/16 at 21:45; Stop 06/18/16 at 19:15 ; Status DC Penicillin V Potassium (Pen V K) 500 mg QID PO Last administered on 06/19/16 12:18; Start 06/18/16 at 09:00; Stop 06/25/16 at 08:59 Propranolol HCl (Inderal La) 120 mg DAILY PO Last administered on 06/19/16 08: 18; Start 06/18/16 at 09:00; Stop 07/18/16 at 08:59 Sertraline HCl (Zoloft) 50 mg QHS PO Last administered on 06/18/16 20:19; Start 06/18/16 at 21:00; Stop 07/18/16 at 20:59 Trazodone HCl (Desyrel) 50 mg QHSP PRN PO INSOMNIA Last administered on 22:09; Start 06/17/16 at 21:45; Stop 07/17/16 at 21:44 Allergies Coded Allergies: Haloperidol (Verified Adverse Reaction, Severe, SEVERE DYSTONIA, 08/29/12) Risperidone (Verified Adverse Reaction, Severe, SEVERE DYSTONIA, 08/29/12) Ziprasidone (Verified Adverse Reaction, Severe, SEVERE DYSTONIA, 08/29/12) RICO PIERSON NP Jun 19, 2016 15:29
[2016-06-19 18:17] VITALS: BP 130/66
[2016-06-19] MEDS: traZODone 50 MG TAB PO PRN (20:37)
[2016-06-19] MEDS: SERTRALINE HCL 50 MG TAB PO SCH (20:37)
--- NOTE | 2016-06-19 22:00 | EDDOCDS ---
Physician Documentation Name: Brad Mckinnon Age: 36 yrs Sex: Male : 1980 Arrival Date: 06/17/2016 Time: 15:43 Bed [facility] Private MD: NO PRIMARY PHYSICIAN, . Disposition: 06/17/16 19:09 Hospitalization ordered by Romy Vivas for Inpatient Admission. Preliminary diagnosis are Adjustment disorder with depressed mood, Anxiety disorder, unspecified. - Bed requested for Admit. - Status is Inpatient Admission. slm - Condition is Stable. - Problem is an acute exacerbation. - Symptoms are unchanged. Historical: - Allergies: Haldol (Dystonic reaction); - Home Meds: 1. Synthroid 112 mcg Oral tab 1 tab once daily (Last dose: 06/17/2016 07:00) 2. Wellbutrin XL 300 mg Oral Tb24 once daily (Last dose: 06/17/2016 07:00) - PMHx: ADHD; Anxiety; Chronic Pain; Depression; ECT; hyperlipidemia; Hypertension; Hypothyroidism; panic attach with agrophobia; PTSD; - PSHx: none; - Social history: Smoking status: Patient states was never smoker of tobacco. Patient uses states abuses Rx amphetamines, No barriers to communication noted, Speaks appropriately for age. - Family history: Not pertinent. - : The pt / caregiver states he / she is not on anticoagulants. Home medication list is obtained from the patient. - Exposure Risk Screening:: None identified. Vital Signs: 06/17 15:44 BP 151 / 101; Pulse 106; Resp 18 S; Temp 98.6; Pulse Ox 100% on R/A; Weight 102.06 kg / dd6 225 lbs (R); Height 5 ft. 8 in. (172.72 cm) (R); 19:16 BP 148 / 87; Pulse 77; Resp 18; Temp 97.6(TE); Pulse Ox 100% ; Pain 5/10; mas 20:58 Pulse 77; Resp 18; Temp 97.9; Pulse Ox 100% ; slm 15:44 Body Mass Index 34.21 (102.06 kg, 172.72 cm) dd6 MDM: 15:58 Consult PFS/PSA/Tree Killer ordered. ml6 15:58 Consult PFS/PSA/Tree Killer: Patient's case requires discussion with on-call ml6 Psychiatrist ordered. 15:58 PSA/PFS to call Nursing Relay Associate, to enter patient data on [place] Safe Act if patient ml6 involuntarily admitted or transferred for SI or HI ordered. 15:58 Confirm accurate psychiatric medication list and times of last dosage ordered. ml6 15:58 Detain Pt Until Medically/PFS Cleared ordered. ml6 15:59 Acetaminophen Level Ordered. EDMS 15:59 Basic Metabolic Profile Ordered. EDMS 15:59 Complete Blood Count Ordered. EDMS 15:59 Drug Eval Toxicology ED Only Ordered. EDMS 15:59 Ethyl Alcohol (ethanol) Ordered. EDMS 15:59 Liver Profile Ordered. EDMS 15:59 Salicylate Level Ordered. EDMS 15:59 Thyroid Stimulating Hormone Ordered. EDMS 16:21 REGULAR DIET PLASTIC RUIZ+DIET ordered. EDMS 17:40 ALPRAZolam Tablet 1 mg PO once ordered. le 18:05 Consult PFS/PSA/Tree Killer complete. ml4 18:05 Consult PFS/PSA/Tree Killer: Patient's case requires discussion with on-call 4 Psychiatrist complete. 18:05 PSA/PFS to call Nursing Relay Associate, to enter patient data on [place] Safe [place] if patient ml4 involuntarily admitted or transferred for SI or HI complete. 18:41 Acetaminophen Level Reviewed. le 18:41 Basic Metabolic Profile Reviewed. le 18:41 Complete Blood Count Reviewed. le 18:41 Drug Eval Toxicology ED Only Reviewed. le 18:41 Liver Profile Reviewed. le 18:41 Salicylate Level Reviewed. le 18:41 Ethyl Alcohol (ethanol) Reviewed. le 18:41 Thyroid Stimulating Hormone Reviewed. le 18:43 The patient has been medically cleared for psychiatric evaluation, admission and/or le transfer. 19:03 Financial registration complete. zo 19:12 [facility] Payment Agreement was scanned into [employer] and attached to record. zo 19:41 Admit to [facility]: ordered. EDMS 19:45 [facility] Legal paperwork was scanned into [employer] and attached to record. 4 20:45 LORazepam 1 mg PO once ordered. le 06/18 10:02 T-Sheet-- Draft Copy was scanned into [employer] and attached to record. gb Administered Medications: 06/17 18:44 Drug: ALPRAZolam 1 mg [alprazolam 0.25 mg tablet (4 tabs)] Route: PO; [facility] 20:12 Follow up: Response: Anxiety is improved [facility] 20:53 Drug: LORazepam 1 mg [lorazepam 1 mg tablet (1 tabs)] Route: PO; [facility] Signatures: Dispatcher [employer] EDMS Trish Ribera, Reg Reg gb Karina, Patricia, PSA PSA ml4 Aruna Hameed Lisa, SENIOR INTEGRATION DEVELOPER SENIOR INTEGRATION DEVELOPERLevon Clark RN RN ml6 Roselia Garcia RN RN [facility] Chikis Cuevas,KRISTINA LIVESTOCK FARMWORKER [facility] The chart was reviewed and I authenticate all verbal orders and agree with the evaluation and treatment provided.Attachments: 19:12 [facility] Payment Agreement zo 06/18 10:02 T-Sheet-- Draft Copy Chart Complete MTDD
--- NOTE | 2016-06-19 22:00 | EDDOCDS ---
Nurse's Notes [facility] Name: Brad Mckinnon Age: 36 yrs Sex: Male : 1980 Arrival Date: 06/17/2016 Time: 15:43 Bed [facility] Private MD: NO PRIMARY PHYSICIAN, . Diagnosis: Adjustment disorder with depressed mood;Anxiety disorder, unspecified Presentation: 06/17 16:00 Presenting complaint: Patient states: patient states that he has been receiving ECT ml6 treatments in [place], states began feeling increasing depressed despite treatments and stopping his substance abuse, states SI. Mental Health Triage Level: Level 2: The patient displays active suicidal ideations. Adult Sepsis Screening: The patient does not have new or worsening altered mentation. Patient's respiratory rate is less than 22. Systolic blood pressure is greater than 100. Patient has a qSOFA score of 0- Negative Sepsis Screen. Mental Health Triage Level: Level 2: The patient displays active suicidal ideations. Suicide/Homicide risk assessment- The patient admits to and/or has been reported to be having suicidal ideations. Status: Patient is not a special services supervisor or dependent. Transition of care: patient was not received from another setting of care. Red Flag criteria, patient assessed and taken directly to a bed. 16:00 Acuity: MARTHA Level 3 ml6 16:00 Method Of Arrival: Walkin/Carried/Asstd ml6 Triage Assessment: 16:05 General: Appears in no apparent distress, Behavior is appropriate for age, cooperative. ml6 Pain: Denies pain. HIV screening NA for this visit Offered previously. Neurological: No deficits noted. Level of Consciousness is awake, alert, Oriented to person, place, time, Dietary Cook are equal bilaterally Moves all extremities. Full function Gait is steady, Speech is normal. Cardiovascular: No deficits noted. Capillary refill < 3 seconds is brisk in bilateral fingers toes Heart tones S1 S2 present Edema is absent. Pulses are all present. Respiratory: No deficits noted. Airway is patent Respiratory effort is even, unlabored, Respiratory pattern is regular, symmetrical, Breath sounds are clear bilaterally. GI: No deficits noted. Historical: - Allergies: Haldol (Dystonic reaction); - Home Meds: 1. Synthroid 112 mcg Oral tab 1 tab once daily (Last dose: 06/17/2016 07:00) 2. Wellbutrin XL 300 mg Oral Tb24 once daily (Last dose: 06/17/2016 07:00) - PMHx: ADHD; Anxiety; Chronic Pain; Depression; ECT; hyperlipidemia; Hypertension; Hypothyroidism; panic attach with agrophobia; PTSD; - PSHx: none; - Social history: Smoking status: Patient states was never smoker of tobacco. Patient uses states abuses Rx amphetamines, No barriers to communication noted, Speaks appropriately for age. - Family history: Not pertinent. - : The pt / caregiver states he / she is not on anticoagulants. Home medication list is obtained from the patient. - Exposure Risk Screening:: None identified. Screenin:30 Screening information is obtained from the patient. Fall risk: No risks identified. [facility] Assistance ADL's: requires no assistance with activities of daily living. Abuse/DV Screen: The patient / caregiver reports he/she is: not in a situation that causes fear, pain or injury. Nutritional screening: No deficits noted. Advance Directives: There is no active DNR order. home support is adequate. Assessment: 16:30 General: Appears in no apparent distress, comfortable, Behavior is appropriate for age, cjh cooperative. Pain: Denies pain. Neurological: Level of Consciousness is awake, alert, Oriented to person, place, time. Respiratory: Airway is patent Respiratory effort is even, unlabored, Respiratory pattern is regular, symmetrical. Derm: Skin is pink, warm & dry. 17:30 General: Appears in no apparent distress, comfortable, Behavior is appropriate for age, cjh cooperative, no visibledistress, quiet on stretcher, denies needs, cooperative, will continue to monitor. 19:33 General: Appears in no apparent distress, comfortable, Behavior is cooperative, slm pleasant. General: pt resting quietly on stretcher security observing . Respiratory: Airway is patent Respiratory effort is even, unlabored. 20:55 General: Appears in no apparent distress, comfortable, Behavior is anxious, slm cooperative. General: pt medicated at this time c/o feeling anxious .. Respiratory: Airway is patent Respiratory effort is even, unlabored. Respiratory: Airway is patent Respiratory effort is even, unlabored. Derm: Skin is pink, warm & dry. Mental Health Eval: 18:22 Mental health consult is initiated at 06:00. Status: The patient is not a ml4 special services supervisor or dependent. [facility]: The patient is not an established patient of [facility]. Referral Information: Evaluation referral is generated by the patient himself / herself. The patient was referred for evaluation because increase depression, pt wanted to walk into oncoming traffic while walking down [facility] . Subjective: The patients chief complaint is pt states, "I wanted to actually kill myself today, but I walked here instead." Pt reports suffering from suicidal thoughts for awhile, but today the thoughts scared him due to actually wanting to walk into oncoming traffic. Pt denies any specific triggers, but states "I've been in denial about slipping back into my depression." Pt reports he lives alone, wanting to sleep to escape his depression. Pt states, "I can't even escape my depression, because I can't sleep." Admits visiting his Father over [place] Break, which was a struggle due to father's alcoholism. Pt has a significant psychiatric hx , last hospitalized to [facility] and discharged 05/21/16. Admits he received 7 ECT bilateral treatments which reports was beneficial. He continues to express SI with plan to "walk into on coming traffic." Admits a hx of PTSD, post 02/03. 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 . 18:52 Subjective: The patients chief complaint is Pt continues to voice SI with plan, unable ml4 to CFS and is requesting hospitalization. . Delusions are denied. Patient's mood is anxious, depressed, Hallucinations are denied. Mental Health history: depression, abusing marijuana. narcotics. post-traumatic stress disorder, Mental Health Admissions: Numerous hospitalizations, last hospitalized to [place] Apr, 2016 Current Outpatient Mental Health Services: None. Current living environment is The patient currently lives alone. The patient is single. Patient presents to Emergency Department with the following symptoms within the past 2 weeks: anxiety, decreased appetite, depressed mood, feelings of helplessness/hopelessness, poor concentration, poor impulse control, relational problem, sleep disturbance - insomnia, suicidal ideation with plan for walking into oncoming traffic . Substance abuse: Patient uses marijuana weekly. Mental status exam: Patients appearance is appropriate, Patient's behavior is cooperative, Speech is normal. Affect is appropriate. Mood is anxious. Hallucinations are denied. Appetite is poor. Memory is good. Energy level is normal. Content of thought is depressive. of suicide with plan Thought process is intact. Cognitive level is oriented to person, place, time and situation Patient's insight is fair. Judgement is poor. Rapport with interviewer is good. Suicidal Ideation present with a plan to kill self by walk into on-coming traffic . Homicidal ideation is denied. Disposition: Medically cleared for disposition by Laura KINSEY Psychiatric Consult is performed by phone with Dr Romy Vivas. [facility] Admission Criteria: The patient is experiencing suicidal ideation. The patient requires continuous observation and/or control to protect self, others or property. The patient's care requires a multi-modal treatment plan under close supervision and coordination due to the complexity and severity of the patient's symptoms. The patient requires administration and monitoring of psychoactive medications by skilled medical providers due to the side effects of the psychoactive medications or significant dosage adjustments. Legal Status: Patient's legal status will be Emergency admission: . [place] Safe Act: [place] Safe Act is applicable to this patient. The patient poses a risk to self or other and the Nursing 3Rd Mate has been notified. He/She will enter the patient's data. DSM-V Differential Diagnosis: Major Depressive Disorder unspecified (F33.9) Posttraumatic Stress Disorder (F 43.10). Insurance Pre-Certification: Medicare, pt reports "straight Medicaid." [facility] was accessed and listed as "Medicaid" . Narrative: Notice of Status and Rights, FAQ, and Bill of Rights was given at bedside. Vital Signs: 15:44 BP 151 / 101; Pulse 106; Resp 18 S; Temp 98.6; Pulse Ox 100% on R/A; Weight 102.06 kg dd6 (R); Height 5 ft. 8 in. (172.72 cm) (R); 19:16 BP 148 / 87; Pulse 77; Resp 18; Temp 97.6(TE); Pulse Ox 100% ; Pain 5/10; mas 20:58 Pulse 77; Resp 18; Temp 97.9; Pulse Ox 100% ; slm 15:44 Body Mass Index 34.21 (102.06 kg, 172.72 cm) dd6 Vitals: 15:44 Log In Time: June 17, 2016 at 15:42. dd6 15:45 RN notified that patient meets Red Flag criteria. dd6 ED Course: 15:44 Patient visited by Jamal Rivera PCA. dd6 15:44 NO PRIMARY PHYSICIAN, . is Private Physician. dd6 15:44 Patient moved to Waiting dd6 15:56 Patient moved to [address] 16:02 Triage Initiated ml6 16:06 Patient visited by Ru Morgan Security Aide. pjf 16:10 Pt greeted and oriented to ED. Patient advised of names of staff involved in care, pjf location of call childs, wait times and NPO status. Patient has correct armband on for positive identification. Placed in psych safe attire. Bed in low position. Call light in reach. Side rails up X 1. Security observing. Property removed, secured in. Door closed. Noise minimized. Visitors limited. Report received from rn - psych. triage level#2, +si, cooperative \\T\\ this time. The patient / caregiver is instructed regarding the plan of care and ED course. Psych Safety Check: Location: Psych Room. Visual Assessment: Cooperative. 16:13 Patient visited by Ru Morgan Security Aide. pjf 16:30 Psych Safety Check: Location: Psych Room. Visual Assessment: Cooperative. pjf 16:30 No IV's were initiated during this patient's visit. No procedures done that require [facility] assistance. 16:47 Patient visited by Ru Morgan Security Aide. pjf 16:50 Laura Romero FNP is [facility]. le 17:03 Patient visited by Laura Romero FNP. le 17:03 Patient visited by Laura Romero FNP. le 17:12 Patient visited by Ru Morgan Security Aide. pjf 17:37 Patient visited by Ru Morgan Security Aide. pjf 17:52 Patient visited by Patricia Collins PSA. ml4 18:04 Patient visited by Ru Morgan Security Aide. pjf 18:17 Patient visited by Ru Morgan Security Aide. pjf 18:36 Patient visited by Ru Morgan Security Aide. pjf 18:56 Patient visited by Prince Nelson. mas 18:56 Chikis Cuevas LPN is Primary Nurse. slm 19:09 Romy Vivas is Hospitalizing Provider. le 19:12 [facility] Payment Agreement was scanned into [employer] and attached to record. zo 19:32 Patient visited by Prince Nelson. mas 19:34 Patient visited by Chikis Cuevas LPN. slm 19:45 Patient visited by Prince Nelson. mas 19:45 E Legal paperwork was scanned into [employer] and attached to record. ml4 20:10 Patient visited by Prince Nelson. mas 20:15 Patient visited by Prince Nelson. mas 20:31 Patient visited by Prince Nelson. mas 20:34 Olga Maurer poultry pathologist. ys2 20:35 Olga Maurer poultry pathologist. ys2 20:52 Patient visited by Chikis Cuevas LPN. [facility] 06/18 10:02 T-Sheet-- Draft Copy was scanned into [employer] and attached to record. gb Administered Medications: 06/17 18:44 Drug: ALPRAZolam 1 mg [alprazolam 0.25 mg tablet (4 tabs)] Route: PO; [facility] 20:12 Follow up: Response: Anxiety is improved [facility] 20:53 Drug: LORazepam 1 mg [lorazepam 1 mg tablet (1 tabs)] Route: PO; [facility] Attachments: 19:45 [facility] Legal paperwork ml4 Order Results: Lab Order: Acetaminophen Level; SPEC'M 06/17/16 16:30 Test: ACETAMINOPHEN LEVEL; Value: < 2.0; Range: 10.0-30.0; Abnormal: Below low normal; Units: UG/ML; Status: F Lab Order: Basic Metabolic Profile; SPEC'M 06/17/16 16:30 Test: GLUCOSE, FASTING; Value: 110; Range: 70-105; Abnormal: Above high normal; Units: MG/DL; Status: F Test: BLOOD UREA NITROGEN; Value: 20; Range: 7-18; Abnormal: Above high normal; Units: MG/DL; Status: F Test: CREATININE FOR GFR; Value: 1.01; Range: 0.70-1.30; Units: MG/DL; Status: F Test: GLOMERULAR FILTRATION RATE; Value: > 60.0; Range: >60; Status: F Test: SODIUM LEVEL; Value: 141; Range: 136-145; Units: MEQ/L; Status: F Test: POTASSIUM SERUM; Value: 4.7; Range: 3.5-5.1; Units: MEQ/L; Status: F Test: CHLORIDE LEVEL; Value: 106; Range: 98-107; Units: MEQ/L; Status: F Test: CARBON DIOXIDE LEVEL; Value: 25; Range: 21-32; Units: MEQ/L; Status: F Test: ANION GAP; Value: 10; Range: 8-16; Units: MEQ/L; Status: F Test: CALCIUM LEVEL; Value: 9.1; Range: 8.5-10.1; Units: MG/DL; Status: F Test Note: ; Units are mL/min/1.73 m2 Chronic Kidney Disease Staging per NKF: Stage I & II GFR >=60 Normal to Mildly Decreased Stage III GFR 30-59 Moderately Decreased Stage IV GFR 15-29 Severely Decreased Stage V GFR <15 Very Little GFR Left ESRD GFR <15 on SALON DESIGNER Lab Order: Complete Blood Count; [facility] 06/17/16 16:30 Test: WHITE BLOOD COUNT; Value: 10.1; Range: 4.0-10.0; Abnormal: Above high normal; Units: K/mm3; Status: F Test: RED BLOOD COUNT; Value: 5.38; Range: 4.30-6.10; Units: M/mm3; Status: F Test: HEMOGLOBIN; Value: 18.1; Range: 14.0-18.0; Abnormal: Above high normal; Units: g/dl; Status: F Test: HEMATOCRIT; Value: 51.5; Range: 42.0-52.0; Units: %; Status: F Test: MEAN CORPUSCULAR VOLUME; Value: 95.8; Range: 80.0-96.0; Units: fl; Status: F Test: MEAN CORPUSCULAR HEMOGLOBIN; Value: 33.6; Range: 27.0-33.0; Abnormal: Above high normal; Units: pg; Status: F Test: MEAN CORPUSCULAR HGB CONC; Value: 35.1; Range: 32.0-36.5; Units: g/dl; Status: F Test: RED CELL DISTRIBUTION WIDTH; Value: 13.0; Range: 11.5-14.5; Units: %; Status: F Test: PLATELET COUNT, AUTOMATED; Value: 246; Range: 150-450; Units: k/mm3; Status: F Lab Order: Drug Eval Toxicology ED Only; SPEC'M 06/17/16 16:30 Test: AMPHETAMINES LEVEL URINE; Value: NEGATIVE; Range: NEGATIVE; Status: F Test: BARBITURATES URINE; Value: NEGATIVE; Range: NEGATIVE; Status: F Test: BENZODIAZEPINES URINE; Value: NEGATIVE; Range: NEGATIVE; Status: F Test: CANNABINOIDS URINE; Value: POSITIVE; Range: NEGATIVE; Abnormal: Above high normal; Status: F Test: COCAINE METABOLITE URINE; Value: NEGATIVE; Range: NEGATIVE; Status: F Test: METHADONE URINE; Value: NEGATIVE; Range: NEGATIVE; Status: F Test: OPIATES URINE; Value: NEGATIVE; Range: NEGATIVE; Status: F Test: TRICYCLIC ANTIDEPRESS URINE; Value: NEGATIVE; Range: NEGATIVE; Status: F Test Note: ; FALSE POSITIVE RESULTS CAN BE CAUSED BY THE USE OF PANTOPRAZOLE (PROTONIX). Lab Order: Ethyl Alcohol (ethanol); SPEC'M 06/17/16 16:30 Test: ETHYL ALCOHOL (ETHANOL); Value: < 0.003; Range: 0.000-0.010; Units: %; Status: F Lab Order: Liver Profile; SPEC'M 06/17/16 16:30 Test: AST/SGOT; Value: 33; Range: 15-37; Units: U/L; Status: F Test: ALT/SGPT; Value: 56; Range: 12-78; Units: U/L; Status: F Test: ALKALINE PHOSPHATASE; Value: 84; Range: 45-117; Units: U/L; Status: F Test: BILIRUBIN,TOTAL; Value: 0.8; Range: 0.2-1.0; Units: MG/DL; Status: F Test: BILIRUBIN,DIRECT; Value: 0.1; Range: 0.0-0.2; Units: MG/DL; Status: F Test: TOTAL PROTEIN; Value: 8.6; Range: 6.4-8.2; Abnormal: Above high normal; Units: GM/DL; Status: F Test: ALBUMIN; Value: 4.3; Range: 3.2-5.2; Units: GM/DL; Status: F Test: ALBUMIN/GLOBULIN RATIO; Value: 1.00; Range: 1.00-1.93; Status: F Lab Order: Salicylate Level; SPEC'M 06/17/16 16:30 Test: SALICYLATE LEVEL; Value: < 1.7; Range: 5.0-30.0; Abnormal: Below low normal; Units: MG/DL; Status: F Lab Order: Thyroid Stimulating Hormone; SPEC'M 06/17/16 16:30 Test: THYROID STIMULATING HORMONE; Value: 1.230; Range: 0.358-3.740; Units: uIU/ML; Status: F Outcome: 06/17 16:30 No special radiology studies were completed. [facility] 19:09 Decision to Hospitalize by Provider. 20:56 Discharge Assessment: Patient awake, alert and oriented x 3. No cognitive and/or slm functional deficits noted. Patient verbalized understanding of disposition instructions. patient administered narcotics - no. The following High Risk Discharge criteria are identified: None. Admitted to Psych accompanied by tech, via wheelchair, with chart. Condition: stable. 20:58 Patient left the ED. slm Signatures: Kamala Lilly, RN RN [facility] Trish Ribera, Reg Reg gb Fervanessa, Ru, Security Aide Securpjf Patricia Collins, PSA PSA ml4 Aruna Hameed Lisa, SENIOR PROFESSIONAL SERVICES CONSULTANT SENIOR PROFESSIONAL SERVICES CONSULTANT le Jamal Rivera, HOG TRADER HOG TRADER dd6 Levon Chester RN RN ml6 Prince Nelson Jane, RN RN [facility] Chikis Cuevas,SALES PRODUCT SPECIALIST SALES PRODUCT SPECIALIST [facility] Olga Maurer ys2 Corrections: (The following items were deleted from the chart) 19:04 18:52 Insurance Pre-Certification: Medicare, pt reports "straight Medicaid." . ml4 ml4 Chart Complete MTDD
--- NOTE | 2016-06-19 22:00 | EDDOCDS ---
Physician Documentation [facility] Name: Brad Mckinnon Age: 36 yrs Sex: Male : 1980 Arrival Date: 06/17/2016 Time: 15:43 Bed [facility] Private MD: NO PRIMARY PHYSICIAN, . Disposition: 06/17/16 19:09 Hospitalization ordered by Romy Vivas for Inpatient Admission. Preliminary diagnosis are Adjustment disorder with depressed mood, Anxiety disorder, unspecified. - Bed requested for Admit. - Status is Inpatient Admission. slm - Condition is Stable. - Problem is an acute exacerbation. - Symptoms are unchanged. Historical: - Allergies: Haldol (Dystonic reaction); - Home Meds: 1. Synthroid 112 mcg Oral tab 1 tab once daily (Last dose: 06/17/2016 07:00) 2. Wellbutrin XL 300 mg Oral Tb24 once daily (Last dose: 06/17/2016 07:00) - PMHx: ADHD; Anxiety; Chronic Pain; Depression; ECT; hyperlipidemia; Hypertension; Hypothyroidism; panic attach with agrophobia; PTSD; - PSHx: none; - Social history: Smoking status: Patient states was never smoker of tobacco. Patient uses states abuses Rx amphetamines, No barriers to communication noted, Speaks appropriately for age. - Family history: Not pertinent. - : The pt / caregiver states he / she is not on anticoagulants. Home medication list is obtained from the patient. - Exposure Risk Screening:: None identified. Vital Signs: 06/17 15:44 BP 151 / 101; Pulse 106; Resp 18 S; Temp 98.6; Pulse Ox 100% on R/A; Weight 102.06 kg / dd6 225 lbs (R); Height 5 ft. 8 in. (172.72 cm) (R); 19:16 BP 148 / 87; Pulse 77; Resp 18; Temp 97.6(TE); Pulse Ox 100% ; Pain 5/10; mas 20:58 Pulse 77; Resp 18; Temp 97.9; Pulse Ox 100% ; slm 15:44 Body Mass Index 34.21 (102.06 kg, 172.72 cm) dd6 MDM: 15:58 Consult PFS/PSA/Tire Stripper ordered. ml6 15:58 Consult PFS/PSA/Tire Stripper: Patient's case requires discussion with on-call ml6 Psychiatrist ordered. 15:58 PSA/PFS to call Nursing Public Speaker, to enter patient data on [place] Safe [place] if patient ml6 involuntarily admitted or transferred for SI or HI ordered. 15:58 Confirm accurate psychiatric medication list and times of last dosage ordered. ml6 15:58 Detain Pt Until Medically/PFS Cleared ordered. ml6 15:59 Acetaminophen Level Ordered. EDMS 15:59 Basic Metabolic Profile Ordered. EDMS 15:59 Complete Blood Count Ordered. EDMS 15:59 Drug Eval Toxicology ED Only Ordered. EDMS 15:59 Ethyl Alcohol (ethanol) Ordered. EDMS 15:59 Liver Profile Ordered. EDMS 15:59 Salicylate Level Ordered. EDMS 15:59 Thyroid Stimulating Hormone Ordered. EDMS 16:21 REGULAR DIET PLASTIC RUIZ+DIET ordered. EDMS 17:40 ALPRAZolam Tablet 1 mg PO once ordered. le 18:05 Consult PFS/PSA/Tire Stripper complete. ml4 18:05 Consult PFS/PSA/Tire Stripper: Patient's case requires discussion with on-call 4 Psychiatrist complete. 18:05 PSA/PFS to call Nursing Public Speaker, to enter patient data [place] Safe [place] if patient ml4 involuntarily admitted or transferred for SI or HI complete. 18:41 Acetaminophen Level Reviewed. le 18:41 Basic Metabolic Profile Reviewed. le 18:41 Complete Blood Count Reviewed. le 18:41 Drug Eval Toxicology ED Only Reviewed. le 18:41 Liver Profile Reviewed. le 18:41 Salicylate Level Reviewed. le 18:41 Ethyl Alcohol (ethanol) Reviewed. le 18:41 Thyroid Stimulating Hormone Reviewed. le 18:43 The patient has been medically cleared for psychiatric evaluation, admission and/or le transfer. 19:03 Financial registration complete. zo 19:12 [facility] Payment Agreement was scanned into [employer] and attached to record. zo 19:41 Admit to [facility]: ordered. EDMS 19:45 [facility] Legal paperwork was scanned into [employer] and attached to record. 4 20:45 LORazepam 1 mg PO once ordered. le 06/18 10:02 T-Sheet-- Draft Copy was scanned into [employer] and attached to record. gb Administered Medications: 06/17 18:44 Drug: ALPRAZolam 1 mg [alprazolam 0.25 mg tablet (4 tabs)] Route: PO; [facility] 20:12 Follow up: Response: Anxiety is improved [facility] 20:53 Drug: LORazepam 1 mg [lorazepam 1 mg tablet (1 tabs)] Route: PO; [facility] Signatures: Dispatcher [employer] EDMS Trish Ribera, Reg Reg gb Karina, Patricia, PSA PSA ml4 Aruna Hameed Lisa, G[employer] PLANT OPERATOR GAS DISTRIBUTION PLANT OPERATORLevon Clark RN RN ml6 Roselia Garcia RN RN [facility] Chikis Cuevas,KRISTINA ROAD EQUIPMENT OPERATOR [facility] The chart was reviewed and I authenticate all verbal orders and agree with the evaluation and treatment provided.Attachments: 19:12 [facility] Payment Agreement zo 06/18 10:02 T-Sheet-- Draft Copy Chart Complete MTDD
[2016-06-20] MEDS ORDERED: traZODone 100 MG TAB PO ONE (00:15)
[2016-06-20] MEDS: LEVOTHYROXINE 0.112 MG TAB (112 MCG) PO SCH (06:40)
[2016-06-20 06:43] VITALS: BP 139/70
[2016-06-20] MEDS: ATORVASTATIN 20 MG TAB PO SCH (08:54)
[2016-06-20] MEDS: FLUTICASONE PROP 0.05% NASAL SPRAY 16 GM (FLONASE) SCH (08:54)
[2016-06-20] MEDS: buPROPion **XL** TABLET 150MG (WELLBUTRIN XL) PO SCH (08:54)
[2016-06-20] MEDS: PENICILLIN V POTASSIUM 500 MG TAB PO SCH ×4 (08:54→19:57)
[2016-06-20] MEDS: PROPRANOLOL 60 MG LA CAP PO SCH (08:55)
[2016-06-20] MEDS: MAALOX 30 ML SUSP *UDC PO PRN ×2 (10:22→15:28)
[2016-06-20] MEDS ORDERED: PENI50TA PO (12:43)
[2016-06-20] MEDS ORDERED: FLUTISP (12:43)
[2016-06-20 18:00] VITALS: BP 137/75
[2016-06-20] MEDS: SERTRALINE HCL 50 MG TAB PO SCH (19:57)
--- NOTE | 2016-06-20 20:18 | IPNPDOC ---
[facility] Progress Note Progress Note DATE: 06/20/16 CHIEF COMPLAINT: "I end up here, um, this is a repeat for severe depression, SI , crippling anxiety", no substance abuse." HISTORY OF THE PRESENT ILLNESS: Patient states he was recently in the psych unit at [facility]. Patient reports he has received 7 ECT treatments. Patient was to return and receive more ECT treatments as an outpatient. Patient states that was unreasonable as he lives here and cannot get to [place] regularly. Patient states he stopped his meds approximately 2 weeks ago. Patient reports he self prescribed what he thought would be appropriate. Pt. appears to be drug seeking for specific meds of Benzo's and amphetamines. Pt. has a prior history of amphetamine abuse in the past, states it was one of his drugs of choice. Patient states he (supposedly) went cold turkey from benzos at approximately the same time 2 weeks ago. Pt. states he had been prescribed Xanax 1 mg, 3 times a day while in the hospital. Patient now realizes he should not of put himself back on his be appropriate. Patient feels that this may be contributing to his current anxiety level. Patient states his sleep prior to admission had been poor. Patient cannot qualify amount of time he has slept on average. Patient also reports he has night terrors 7 out of 7 nights from the PTSD he had from 911. Patient states the only medicine that helps him with night terrors is his benzos. Patient also reports that propanolol that he takes for his blood pressure is a great help with his anxiety as well. Patient states mom is somewhat supportive dad is a "trainwreck" per pt. . PAST PSYCHIATRIC HISTORY: Patient states his first experience with mental health services was when he was 11 years old after an overdose on pills after his parents . Patient states he was hospitalized for this at a [facility] in [place]. Patient reports he has greater than 20 admissions to a hospital. Patient has only one admission for this suicide attempt at 11 years old. Patient reports not having any consistent therapy that has worked on his issues on a regular basis. MEDICAL HISTORY: Patient states he has hypertension and hypothyroid, denies all other health issues. HOME MEDICATIONS: Please see below. Patient states home meds were bupropion 300 mg by mouth every morning, Xanax 1 mg 3 times a day, Zoloft, unknown dose by mouth every morning. FAMILY PSYCHIATRIC HISTORY: Patient states dad had major depressive disorder. Maternal grandfather had grief induced psychotic break after his 's sister has depression. A paternal uncle has anxiety and depression. SOCIAL HISTORY: Patient states he is single with no children. Patient reports she has a supportive mom's sister and brother. SUBSTANCE ABUSE HISTORY: Patient denies any alcohol issues however past history shows he had alcohol abuse in the past. Patient states his drugs of choice were Adderall to get out of bed after also being addicted to opiates. Patient does not claim to be clean or sober at this time. LEGAL HISTORY: Patient denies any legal history. VITAL SIGNS: Please see below. 96.1 72 20 139/70 NEW TEST RESULTS: Please see below. Patient UDS on admission positive for cannabis. CURRENT MEDICATIONS: - Bupropion 150 mg po q am for depression/anxiety. - Sertraline 50 mg po q hs for depression/anxiety. - Hydroxyzine Hcl 50 mg po q 6h prn for anxiety/agitation. - Trazodone 50 mg po qhs prn for insomnia. MENTAL STATUS EXAMINATION: Patient is a 36 year old male, who is pleasant and cooperative, average grooming of overweight build. Patient noted to have a steady gait. Patient is currently dressed in his own clothes. Speech: Is of normal rate, volume, is articulate, coherent and spontaneous. Thought processes: Clear, goal directed. Rate of thoughts: Normal. Thought content: Rational, Logical. Abstract reasoning: Adequate. Computation: Adequate. Associations: Circumstantial. Abnormal or psychotic thoughts: Patient denies hallucinations, delusions, paranoia, obsessions or compulsions. Patient denies homicidal or suicidal ideation. Patient denies any thoughts of self-harm and/or cutting. Judgment: Fair. Insight: Fair. Oriented to: Time, person, place and surroundings. Recent and Remote Memory: Patient feels short-term memory has been affected by ECT treatments. Patient denies any other memory issues. Pt. does feel today that this improves each day he is further out from the ECT treatment. Attention Span and Concentration: Fair. Language: Normal. Fund of knowledge: Adequate. Mood: "It's OK, sort of realistic of where I'm at". Affect: Appropriate, Flat. DIAGNOSES: 1. Major depressive disorder, recurrent 2. History of substance abuse. ASSESSMENT: Patient is greeted in hallway and readily accepts to meet with provider. Patient has related to staff that he has a Social Security disability hearing that is coming up. Patient appears to have numerous hospitalizations throughout [facility] for psychiatric reasons. Patient states his mother who is a elementary school social worker in [facility] said that he should come in to be admitted and not be discharged until he has appropriate housing. This appears to be what the patient is trying to do. Patient states he slept "Good" for 6-7 hours with the trazodone. Pt. states he has had no night terrors since admission. Pt. appears to be clearer and more rational each day. Pt. states he is willing to be discharged to his apartment as long as he can be connected with the outpatient program. Pt. tells provider he has been using some strategies he has learned for coping such as showering when nervous, exercise or walking, talking to others or friends that he trusts. Pt. admits to provider that his issues are his responsibility as he did not followup for aftercare services as he should have. Pt. is continuing to gain insight through this admission. Pt. appears to be willing to work with provider and staff to have a successful discharge. Pt. also contracts with provider that if he is readmitted for similar reasons that we will have to look at longer term care at [facility]. Pt. is in agreement and understands plans for discharge. MANAGEMENT PLAN: Pt. to continue Sertraline 50 mg po q hs, hydrox hcl 50 mg po q 6hours prn for anxiety/agitation, trazodone 50 mg po qhs prn for sleep, to decrease bupropion to 75 mg po q am in hopes of discontinuing altogether when in outpt. medication management. Pt. appears to be well controlled on current sertraline dosing. Maintain safety precautions. Patient to attend groups and participate in unit programming to develop coping strategies. Patient to be engaged in discharge planning process to ensure safe and effective discharge plan. Patient to identify and schedule a PCP appointment upon discharge. Patient to schedule and attend therapy and medication management appointments upon discharge. Patient to consider substance abuse continuing support and treatment upon discharge. TIME SPENT: 25 minutes. Vital Signs Vital Signs Date Time Temp Pulse Resp B/P Pulse Ox O2 Delivery O2 Flow Rate FiO2 06/20/16 08:55 72 139/70 06/20/16 06:43 96.1 20 Current Medications Current Medications Acetaminophen (Tylenol) 650 mg Q6HP PRN PO HEADACHE or DISCOMFORT; Start at 21:45; Stop 07/17/16 at 21:44 Al Hydrox/Mg Hydrox/Simethicone (Mylanta) 30 ml Q4HP PRN PO HEARTBURN/ INDIGESTION Last administered on 06/20/16 15:28; Start 06/17/16 at 21:45; Stop 07/17/16 at 21:44 Atorvastatin Calcium (Lipitor) 20 mg DAILY PO Last administered on 06/20/16 08 :54; Start 06/18/16 at 09:00; Stop 07/18/16 at 08:59 Bacitracin (Bacitracin Oint) 1 dose BIDP PRN TOP REDNESS/IRRITATION; Start at 12:30; Stop 07/18/16 at 12:29 Bupropion HCl (Wellbutrin Xl) 150 mg DAILY PO Last administered on 06/20/16 08 :54; Start 06/19/16 at 09:00; Stop 07/19/16 at 08:59 Bupropion HCl (Wellbutrin Xl) 300 mg DAILY PO Last administered on 06/18/16 09 :51; Start 06/18/16 at 09:00; Stop 06/18/16 at 19:15; Status DC Fluticasone Propionate (Flonase 0.05% Nasal [place]) 2 spray DAILY NA Last administered on 06/20/16 08:54; Start 06/18/16 at 09:00; Stop 07/18/16 at 08:59 Home Med (Med Rec Complete!) ASDIRECTED XX ; Start 06/17/16 at 20:15; Stop at 20:15; Status DC Hydroxyzine HCl (Atarax) 50 mg Q6HP PRN PO ANXIETY/AGITATION Last administered on 06/19/16 07:50; Start 06/18/16 at 19:15; Stop 07/18/16 at 19:14 Levothyroxine Sodium (Synthroid) 0.112 mg DAILY@06 PO Last administered on 06/20 06:40; Start 06/18/16 at 06:00; Stop 07/18/16 at 05:59 Lorazepam (Ativan) 0.5 mg Q12HP PRN PO ANXIETY/AGITATION Last administered on 16:53; Start 06/18/16 at 21:45; Stop 06/25/16 at 21:44 Lorazepam (Ativan) 1 mg Q8HP PRN PO ANXIETY/AGITATION Last administered on 06/18 18:59; Start 06/17/16 at 21:45; Stop 06/18/16 at 19:15; Status DC Magnesium Hydroxide (Milk Of Magnesia) 30 ml DAILYPRN PRN PO CONSTIPATION; Start 06/17/16 at 21:45; Stop 07/17/16 at 21:44 Olanzapine (ZyPREXA ZYDIS) 5 mg Q6HP PRN PO ANXIETY/AGITATION Last administered on 06/17/16 23:02; Start 06/17/16 at 21:45; Stop 06/18/16 at 19:15 ; Status DC Penicillin V Potassium (Pen V K) 500 mg QID PO Last administered on 06/20/16 19:57; Start 06/18/16 at 09:00; Stop 06/25/16 at 08:59 Propranolol HCl (Inderal La) 120 mg DAILY PO Last administered on 06/20/16 08: 55; Start 06/18/16 at 09:00; Stop 07/18/16 at 08:59 Sertraline HCl (Zoloft) 50 mg QHS PO Last administered on 06/20/16 19:57; Start 06/18/16 at 21:00; Stop 07/18/16 at 20:59 Trazodone HCl (Desyrel) 50 mg QHSP PRN PO INSOMNIA Last administered on 20:37; Start 06/17/16 at 21:45; Stop 07/17/16 at 21:44 Allergies Coded Allergies: Haloperidol (Verified Adverse Reaction, Severe, SEVERE DYSTONIA, 08/29/12) Risperidone (Verified Adverse Reaction, Severe, SEVERE DYSTONIA, 08/29/12) Ziprasidone (Verified Adverse Reaction, Severe, SEVERE DYSTONIA, 08/29/12) RICO PIERSON NP Jun 20, 2016 20:18
[2016-06-20] MEDS: traZODone 50 MG TAB PO PRN ×2 (21:38→22:04)
[2016-06-20] MEDS: hydrOXYzine 50 MG TAB PO PRN (22:04)
[2016-06-21] MEDS: LEVOTHYROXINE 0.112 MG TAB (112 MCG) PO SCH (06:42)
[2016-06-21 06:52] VITALS: BP 150/77
[2016-06-21 09:00] VITALS: BP 142/73
[2016-06-21] MEDS: ATORVASTATIN 20 MG TAB PO SCH (09:00)
[2016-06-21] MEDS ORDERED: buPROPion **XL** TABLET 150MG (WELLBUTRIN XL) PO SCH (09:00)
[2016-06-21] MEDS ORDERED: buPROPion 75 MG TAB PO SCH (09:00)
[2016-06-21] MEDS: PROPRANOLOL 60 MG LA CAP PO SCH (09:00)
[2016-06-21] MEDS: PENICILLIN V POTASSIUM 500 MG TAB PO SCH ×2 (09:00→12:25)
[2016-06-21] MEDS: FLUTICASONE PROP 0.05% NASAL SPRAY 16 GM (FLONASE) SCH (09:03)
[2016-06-21] MEDS ORDERED: HYDRO50TAB PO (10:45)
[2016-06-21] MEDS ORDERED: TRAZO50TA PO (10:45)
[2016-06-21] MEDS ORDERED: SERT-141 PO (10:45)
[2016-06-21] MEDS ORDERED: BUPR75TA5 PO (10:45)
[2016-06-21] MEDS: MAALOX 30 ML SUSP *UDC PO PRN (11:15)
--- NOTE | 2016-06-21 11:54 | DS.PDOC ---
[facility] Discharge Summary Discharge Summary DATE OF ADMISSION: Jun 17, 2016 at 21:00 DATE OF DISCHARGE: Jun 21, 2016 HISTORY: "I end up here, um, this is a repeat for severe depression, SI, crippling anxiety", no substance abuse." Patient states he was recently in the psych unit at [facility]. Patient reports he has received 7 ECT treatments. Patient was to return and receive more ECT treatments as an outpatient. Patient states that was unreasonable as he lives here and cannot get to [place] regularly. Patient states he stopped his meds approximately 2 weeks ago. Patient reports he self prescribed what he thought would be appropriate. Pt. appears to be drug seeking for specific meds of Benzo's and amphetamines. Pt. has a prior history of amphetamine abuse in the past, states it was one of his drugs of choice. Patient states he (supposedly) went cold turkey from benzos at approximately the same time 2 weeks ago. Pt. states he had been prescribed Xanax 1 mg, 3 times a day while in the hospital. Patient now realizes he should not of put himself back on his be appropriate. Patient feels that this may be contributing to his current anxiety level. Patient states his sleep prior to admission had been poor. Patient cannot qualify amount of time he has slept on average. Patient also reports he has night terrors 7 out of 7 nights from the PTSD he had from 911. Patient states the only medicine that helps him with night terrors is his benzos. Patient also reports that propanolol that he takes for his blood pressure is a great help with his anxiety as well. Patient states mom is somewhat supportive dad is a "trainwreck" per pt. . PAST PSYCHIATRIC HISTORY: Patient states his first experience with mental health services was when he was 11 years old after an overdose on pills after his parents . Patient states he was hospitalized for this at a [facility] in [place]. Patient reports he has greater than 20 admissions to a hospital. Patient has only one admission for this suicide attempt at 11 years old. Patient reports not having any consistent therapy that has worked on his issues on a regular basis. MEDICAL HISTORY: Patient states he has hypertension and hypothyroid, denies all other health issues. HOME MEDICATIONS: Please see below. Patient states home meds were bupropion 300 mg by mouth every morning, Xanax 1 mg 3 times a day, Zoloft, unknown dose by mouth every morning. FAMILY PSYCHIATRIC HISTORY: Patient states dad had major depressive disorder. Maternal grandfather had grief induced psychotic break after his 's sister has depression. A paternal uncle has anxiety and depression. SOCIAL HISTORY: Patient states he is single with no children. Patient reports she has a supportive mom, sister and brother. SUBSTANCE ABUSE HISTORY: Patient denies any alcohol issues however past history shows he had alcohol abuse in the past. Patient states his drugs of choice were Adderall to get out of bed after also being addicted to opiates. Patient does not claim to be clean or sober at this time. LEGAL HISTORY: Patient denies any legal history. HOSPITALIZATION COURSE: Patient has blended into unit, is not a behavioral problem. Patient has related to staff that he has a Social Security disability hearing that is coming up. Patient appears to have numerous hospitalizations throughout [facility] for psychiatric reasons. Patient states his mother who is a social scientist in [facility] said that he should come in to be admitted and not be discharged until he has appropriate housing. This appears to be what the patient is trying to do. Patient states he slept well last night, about 7-8 hours with trazodone. Pt. states he has had no night terrors since admission. Pt. continues to be clearer and more rational each day. Pt. states he is willing to be discharged to his apartment as long as he can be connected with the outpatient program. Pt. tells provider he has been using some strategies he has learned for coping such as showering when nervous, exercise or walking, talking to others or friends that he trusts. Pt. admits to provider that his issues are his responsibility, as he did not followup for aftercare services as he should have. Pt. is continuing to gain insight through this admission. Pt. appears to be willing to work with provider and staff to have a successful discharge. Pt. also contracts with provider that if he is readmitted for similar reasons that we will have to look at longer term care at [facility]. Pt. is in agreement and understands plans for discharge. MENTAL STATUS EXAMINATION ON DISCHARGE: Patient is a 36 year old male, who is pleasant and cooperative, average grooming of overweight build. Patient noted to have a steady gait. Patient is currently dressed in his own clothes. Speech: Is of normal rate, volume, is articulate, coherent and spontaneous. Thought processes: Clear, goal directed. Rate of thoughts: Normal. Thought content: Rational, Logical. Abstract reasoning: Adequate. Computation: Adequate. Associations: Circumstantial. Abnormal or psychotic thoughts: Patient denies hallucinations, delusions, paranoia, obsessions or compulsions. Patient denies homicidal or suicidal ideation. Patient denies any thoughts of self-harm and/or cutting. Judgment: Fair. Insight: Fair. Oriented to: Time, person, place and surroundings. Recent and Remote Memory: Patient feels short-term memory has been affected by ECT treatments. Patient denies any other memory issues. Pt. does feel today that this improves each day he is further out from the ECT treatment. Attention Span and Concentration: Fair. Language: Normal. Fund of knowledge: Adequate. Mood: "It's OK, sort of realistic of where I'm at". Affect: Appropriate, Flat. VITAL SIGNS: Please see below. 97.8 50 18 150/77. LABORATORY DATA: please see below. Patient UDS on admission positive for cannabis. CONDITION ON DISCHARGE: Stable, no suicidal or homicidal ideation. DIAGNOSES ON DISCHARGE: 1. Major depressive disorder, recurrent 2. History of substance abuse. MEDICATIONS ON DISCHARGE: - Bupropion 75 mg po q am for depression/anxiety. - Sertraline 50 mg po q hs for depression/anxiety. - Hydroxyzine Hcl 50 mg po q 6h prn for anxiety/agitation. - Trazodone 50 mg po qhs prn, may repeat x1 for insomnia. PLAN/FOLLOWUP ARRANGEMENTS: Pt. to continue Sertraline 50 mg po q hs for depression/anxiety, hydrox hcl 50 mg po q 6hours prn for anxiety/agitation, trazodone 50 mg po qhs prn for sleep, bupropion 75 mg po q am, in hopes of discontinuing altogether when in outpt. medication management. Pt. appears to be well controlled on current sertraline dosing, no maximino noted. Patient to identify and schedule a PCP appointment upon discharge. Patient to schedule and attend therapy and medication management appointments upon discharge. Patient to consider substance abuse continuing support and treatment upon discharge. The amount of time spent in the coordination of care for this patient was approximately 25 minutes. Vital Signs Vital Sign - Last 24 Hours 06/20/16 06/21/16 06/21/16 18:00 06:52 09:00 Temp 97.9 97.8 Pulse 67 50 76 Resp 16 18 B/P 137/75 150/77 142/73 Medications Scheduled Atorvastatin Calcium (Atorvastatin Calcium) 20 Mg Tab 20 MG PO DAILY cholesterol (Reported) Bupropion HCl (Bupropion HCl) 75 Mg Tab #7 75 MG PO QAM DEPRESSION Fluticasone Propionate (Fluticasone Propionate) 50 Mcg/Act Spr #1 2 SPRAY NA DAILY allergy Levothyroxine Sodium (Synthroid) 112 Mcg Tab 112 MCG PO DAILY hypothyroidism ( Reported) Penicillin V Potassium (Penicillin V Potassium) 500 Mg Tab #20 500 MG PO QID infection Propranolol HCl (Propranolol HCl ER) 120 Mg Cap 120 MG PO DAILY blood pressure ( Reported) Sertraline Hcl (Sertraline HCl) 50 Mg Tab #7 50 MG PO QHS DEPRESSION Scheduled PRN Hydroxyzine HCl (Hydroxyzine HCl) 50 Mg Tab #20 50 MG PO Q6HP PRN PRN ANXIETY/ AGITATION Trazodone HCl (Trazodone HCl) 50 Mg Tab #7 50 MG PO QHSP PRN PRN INSOMNIA Allergies Coded Allergies: Haloperidol (Verified Adverse Reaction, Severe, SEVERE DYSTONIA, 08/29/12) Risperidone (Verified Adverse Reaction, Severe, SEVERE DYSTONIA, 08/29/12) Ziprasidone (Verified Adverse Reaction, Severe, SEVERE DYSTONIA, 08/29/12) RICO PIERSON NP Jun 21, 2016 11:54
[2016-06-21] MEDS ORDERED: VIST50CA PO (12:21)
[2016-06-21] MEDS: hydrOXYzine 50 MG TAB PO PRN (12:25)
== END 2016-06-21 13:00 | disposition home or self-care (01) | DRG 885 ==
LOC: M ED 15:43 → M PSY 21:00
PROVIDERS: ADMIT Psychiatry & Neurology Psychiatry; ATTEND Psychiatry & Neurology Psychiatry
DX: F33.9 Major depressive disorder, recurrent, unspecified (principal); I10 Essential (primary) hypertension; E03.9 Hypothyroidism, unspecified; E78.5 Hyperlipidemia, unspecified; J30.9 Allergic rhinitis, unspecified; K02.9 Dental caries, unspecified; G47.00 Insomnia, unspecified; F12.10 Cannabis abuse, uncomplicated; E66.3 Overweight; Z91.5 Personal history of self-harm; Z68.34 Body mass index [BMI] 34.0-34.9, adult; Z79.899 Other long term (current) drug therapy

== ENCOUNTER 2016-07-27 14:19 | Inpatient (IN) | payer MEDICAID, MEDICARE ==
[~2016-07-27] VITALS: Ht 175.3 cm; Wt 108.5 kg
[~2016-07-27 14:19] MED LIST changes: +AMBI5TAB PO; +ATOR1TAB21 PO; +BUPR75TA5 PO; +FLUTISP; +HYDRO50TAB PO; +NAPR500T2 PO; +PENI50TA PO; +PROP120C PO; +SERT-141 PO; +SYNT112T2 PO; +TRAZO50TA PO
[2016-07-27] MEDS ORDERED: OXYC10TA12 PO (14:37)
[2016-07-27] MEDS ORDERED: ADDE5TAB5 PO ×2 (14:37→18:39)
[2016-07-27] MEDS ORDERED: XANA1TAB2 PO (14:37)
[2016-07-27] MEDS ORDERED: PAXI40TA2 PO (14:38)
[2016-07-27] MEDS ORDERED: NS 1,000 ML IV SCH (15:06)
[2016-07-27 15:18] LABS: DIFF SLIDE NUMBER 150; MEAN CORPUSCULAR HEMOGLOBIN 33.4 pg (27.0-33.0); MEAN CORPUSCULAR HGB CONC 35.6 g/dl (32.0-36.5); MEAN CORPUSCULAR VOLUME 93.8 fl (80.0-96.0); PLATELET COUNT, AUTOMATED 262 k/mm3 (150-450); RED CELL DISTRIBUTION WIDTH 12.6 % (11.5-14.5)
[2016-07-27 15:20] LABS: INR 1.05
[2016-07-27 15:21] LABS: CALCIUM LEVEL 8.5 MG/DL (8.5-10.1); CREATININE FOR GFR 1.9 MG/DL (0.70-1.30); GLOMERULAR FILTRATION RATE 42.7 (>60); POTASSIUM SERUM 4.7 MEQ/L (3.5-5.1)
[2016-07-27 15:44] LABS: ALBUMIN 3.9 GM/DL (3.2-5.2); ALBUMIN/GLOBULIN RATIO 0.81 (1.00-1.93); BILIRUBIN,DIRECT 0.2 MG/DL (0.0-0.2); BILIRUBIN,TOTAL 1.3 MG/DL (0.2-1.0); TOTAL PROTEIN 8.7 GM/DL (6.4-8.2)
[2016-07-27 15:52] LABS: BANDS 8 % (< 11)
--- NOTE | 2016-07-27 16:49 | REP ---
Right upper extremity duplex Doppler venous ultrasound. Real time compression and duplex Doppler evaluation of the right upper extremity deep venous system is performed. The right subclavian, jugular, axillary, brachial, basilic and cephalic veins are fully compressible where accessible with transducer pressure, and demonstrate no intraluminal thrombus and normal venous waveforms. There is no evidence of deep venous thrombosis. Impression: No evidence of deep venous thrombosis of the right upper extremity deep vein system. In the area of redness in the upper arm no abscess is seen in the soft tissues. Signed by Yahir Linda MD 07/27/2016 04:40 P
--- NOTE | 2016-07-27 18:00 | REPUSA ---
CLINICAL HISTORY: SOB. TECHNIQUE: Multiple axial CT images were obtained through chest without IV contrast material. MPR cor onal and sagittal sequences were obtained. COMMENTS: Dense consolidations are noted in the right upper lobe and right lower lobe compatible with multifoc al pneumonia There are no pleural effusions. There is no evidence of hilar or mediastinal lymphadenopathy. The hea rt and great vessels are within normal limits. The visualized portions of the liver are of uniform attenuation without mass or defect. There is no i ntra or extrahepatic biliary ductal dilatation. The spleen is unremarkable. The visualized pancreas i s of normal contour and attenuation characteristics. There is no evidence of adrenal mass. The visual ized portions of the kidneys present no abnormalities. The bony structures are free of lytic or blastic lesions. Multilevel degenerative changes are seen in volving the thoracic spine. Scattered calcifications are seen involving the aorta and visualized fabian r branches compatible with atherosclerosis. IMPRESSION: Dense consolidations are noted in the right upper lobe and right lower lobe compatible with multifoc al pneumonia Thank you for your kind referral of this patient.
[2016-07-27] MEDS ORDERED: VANCOMYCIN 1000 MG/20 ML VIAL (J3370) As Ordered ONE (18:12)
[2016-07-27] MEDS ORDERED: VANCOMYCIN HCL 1,000 MG, VIAL MATE ADAPTER 1 EACH in D5W 250 ML IV ONE (18:15)
[2016-07-27] MEDS ORDERED: PIPERACILLIN/TAZOBACTAM SOD 3.375 GM in D5W MINI-BAG PLUS 50 ML IV ONE (18:15)
--- NOTE | 2016-07-27 18:20 | REPUSA ---
HISTORY: right arm swelling, deltoid swelling, whole arm to wrist. TECHNIQUE: Multiple axial images were obtained through the right upper extremity including shoulder joint down into the wrist. Images were obtained in coronal and sagittal planes. COMMENTS: There is evidence of diffuse subcutaneous swelling in all of shoulder and right upper arm. This sugg ests cellulitis. Consider additional evaluation with MRI if clinically warranted. Note: The bony structure is unremarkable. No evidence of osteomyelitis. There is no lytic or blast ic lesion present. The massive muscles groups are not well evaluated on CT without contrast. This m ay also be fully evaluated with MRI. IMPRESSION: 1. There is evidence of diffuse subcutaneous swelling in all of shoulder and right upper arm. This suggests cellulitis. 2. The bony structure is unremarkable. No evidence of osteomyelitis. There is no lytic or blastic lesion present. The massive muscles groups are not well evaluated on CT without contrast. This may also be fully evaluated with MRI. Thank you for your kind referral of this patient. We appreciate the opportunity to participate in th is patient's care.
[2016-07-27] MEDS ORDERED: AMBI5TAB PO (18:39)
[2016-07-27] MEDS ORDERED: CLIN1PAD2 TOP (18:39)
[2016-07-27] MEDS ORDERED: NEXI40CA PO (18:39)
[2016-07-27] MEDS ORDERED: ONDANSETRON 4MG/2ML VIAL (J2405) IV PRN (19:30)
[2016-07-27 19:58] LABS: CONTROL LINE INT CTR LINE PRESENT; HIV SCRN NEGATIVE (NEGATIVE); HIV SCRN1 NEGATIVE (NEGATIVE)
[2016-07-27 19:59] LABS: FREE T4 2.23 NG/DL (0.76-1.46)
--- NOTE | 2016-07-27 19:59 | HPEPDOC ---
Medical History and Physical Date of Admission Jul 27, 2016 at 19:02 History and Physical PRIMARY CARE PROVID[place] [facility] [place] COMPLAINT: Hand swelling HISTORY OF PRESENT ILLNESS: Patient is a 36-year-old male who presented to the emergency department complaining of hand swelling. Patient states that his swelling began approximately 2-3 days ago. He says that his swelling was worse this morning. He has also developed numbness in his hand, saying that he cannot feel his hand. He is complaining of pain in his arm which he rates 9 out of 10 and describes as throbbing. He is also complaining of weakness in his upper extremity, he says he cannot lift his arm. ALLERGIES: Haloperidol, ziprasidone, risperidone PAST MEDICAL HISTORY: Hyperlipidemia, hypothyroidism, chronic pain, allergic rhinitis, hypertension, depression, anxiety, ADHD, insomnia, panic attacks, PTSD, agoraphobia, history of substance abuse PAST SURGICAL HISTORY: None SOCIAL HISTORY: Patient smokes approximately 4 cigarettes per day, has smoked for 12 years. He denies any alcohol use. He smokes marijuana 1-2 times per month. He lives on his own, currently on disability secondary to PTSD CODE STATUS: Full code REVIEW OF SYSTEMS: Constitutional: denies fevers, chills, night sweats, recent weight gain/loss HEENT: Head: Positive for feeling like he is going to pass out. Eyes: denies blurry vision, double vision. Ears: denies hearing loss, tinnitus, ear pain. Nose: denies sinus pain, pressure, rhinorrhea, postnasal drip. Throat: Positive for cough, coughing up phlegm Cardiovascular: Positive for pressure and chest, like a chest cold (started this morning) Respiratory: Positive for shortness of breath and difficulty breathing Gastrointestinal: Positive for nausea, denies vomiting, diarrhea, constipation, abdominal pain, melena, hematochezia : denies dysuria, hematuria Musculoskeletal: Positive for right upper extremity weakness Neurological: Positive for right upper extremity numbness, decreased sensation Lymphatics: denies palpable lymph nodes or swollen glands Integumentary: Positive for blisters in right upper extremity PHYSICAL EXAMINATION: Vitals: Temperature 97.9, pulse 70, respiratory rate 16, blood pressure 143/83, pulse ox 92% on room air General: Patient awake, alert and oriented, verbal and able to answer questions appropriately. He does not appear to be in any acute distress HEENT: Head: Darker pigment then chest, normocephalic, atraumatic. Eyes: pupils equally reactive to light, conjunctiva are pink, sclera are nonicteric. Ears: tympanic membranes visible, light reflex present bilaterally without erythema. Throat: Positive thrush Respiratory: Bilateral rhonchi with left greater than right Cardiovascular: regular rate and rhythm, with no murmurs, rubs or gallops. Abdomen: soft, nontender, nondistended, no hepatosplenomegaly appreciated. Bowel sounds present. Extremities: Diminished but not absent mobility in right upper extremity, 5/5 strength present in the left upper extremity Neurological: Sensation diminished but still intact in right upper extremity, full sensation in the left upper extremity Integumentary: Positive for multiple small non-tense fluid-filled blisters in right arm, right hand swelling, multi-dermatomal erythema over right shoulder and right chest Vascular: pulses palpable and symmetrical in upper and lower extremities bilaterally LABORATORY DATA: CBC: White blood cells 17.0, 79% neutrophils, 8% banded neutrophils, 10% lymphocytes, 3% monocytes, hemoglobin and hematocrit 19.1/53.6, platelets 262 Chemistry: Sodium 138, potassium 4.7, chloride 102, carbon dioxide 28, BUN 33, creatinine 1.90, glucose 124, calcium 8.5 Liver profile: AST 939, ALT 180, alkaline phosphatase 95, total protein 8.7, albumin 3.9, total bilirubin 1.3 Total creatinine kinase 87295 Lactic acid 1.3 C-reactive protein pending TSH and free T4 pending Coagulation: PT 13.8, INR 1.05, APTT 26.2 HIV screen pending MICROBOIOLOGY: Blood cultures 2 pending RADIOLOGY: Right upper extremity ultrasound: No evidence of DVT. No abscess seen and soft tissue Right hand x-ray: Negative Right humerus x-ray: Soft tissue swelling, no fracture Chest CT: Dense consolidation in right upper lobe and right lower lobe compatible with multifocal pneumonia Right upper extremity CT: Diffuse subcutaneous swelling in all of the shoulder and right upper arm suggesting cellulitis. Bony structure unremarkable, no osteomyelitis, no lytic or blastic lesions ASSESSMENT: Patient is a 36-year-old male with multiple acute medical problems including rhabdomyolysis, acute renal failure, community-acquired pneumonia and cellulitis. Patient will require hospitalization for treatment, further evaluation. PLAN: #1: Rhabdomyolysis: Admit patient to PCU under care of Dr. Oneill. Order placed for 1 L normal saline bolus, normal saline at rate of 150 per hour. Repeat total creatinine kinase with a.m. labs #2: Acute renal failure: Patient being fluid resuscitated, continue to monitor. Monitor daily BMP #3: Community-acquired pneumonia: Order placed for Ceftaroline 600 mg IV every 12 hours. Order placed for daily CBC, BMP, sputum Gram stain and culture #4: Right upper extremity cellulitis: Order placed for Ceftaroline 600 mg IV every 12 hours. Order for morphine 2 mg IV every 2 hours when necessary placed. Order placed for C-reactive protein #5: Right upper extremity swelling: Dr. Campo from orthopedics consulted. Considering compartment syndrome. We'll check CLAUDIA #6: Thrush: Order placed for nystatin 5 mL swish and swallow 4 times a day. Order for HIV screen placed #7: Hypothyroidism: Order placed for home dose of Synthroid 112 mcg by mouth daily. Check TSH and free T4 #8: PTSD: Order placed for home dose of Xanax 1 mg by mouth 3 times a day, Paxil 40 mg by mouth daily #9: Hypertension: Order placed for home dose of propranolol 120 mg by mouth daily #10: Elevated liver enzymes: Suspect secondary to dehydration. Order for repeat LFTs with labs tomorrow morning #11: ADHD: Order placed for home dose of Adderall 30 mg by mouth 3 times a day #12: DVT prophylaxis: Order placed for heparin 5000 units subcutaneously every 8 hours I have both independently examined this patient as well as reviewed the dictated note. I have discussed in detail with the resident the findings and plan of treatment as documented in the residents note. I will continue to follow the patient and offer further guidance to the patients care as necessary during this hospital stay. Vital Signs Temperature 97.9, pulse 70, respiratory rate 16, blood pressure 143/83, pulse ox 92% on room air Home Medications Scheduled Alprazolam (Xanax) 1 Mg Tab 1 MG PO TID Amphetamine/Dextroamphetamine (Adderall 5 mg) 1 Tab Tab 30 MG PO TID Atorvastatin Calcium (Atorvastatin Calcium) 20 Mg Tab 20 MG PO QHS Clindamycin Phosphate (Clindamycin Phosphate) 1 % Pad 1 PAD TOP BID Esomeprazole Magnesium Trihydr (Nexium) 40 Mg Cap 40 MG PO DAILY Levothyroxine Sodium (Synthroid) 112 Mcg Tab 112 MCG PO DAILY Paroxetine Hydrochloride (Paxil) 40 Mg Tab 40 MG PO DAILY Propranolol HCl (Propranolol HCl ER) 120 Mg Cap 120 MG PO DAILY Zolpidem Tartrate (Ambien) 5 Mg Tab 5 MG PO QHS Scheduled PRN Oxycodone HCl (Oxycodone HCl) 10 Mg Tab 10 MG PO TID PRN PRN PAIN Allergies Coded Allergies: Haloperidol (Verified Adverse Reaction, Severe, SEVERE DYSTONIA, 08/29/12) Risperidone (Verified Adverse Reaction, Severe, SEVERE DYSTONIA, 08/29/12) Ziprasidone (Verified Adverse Reaction, Severe, SEVERE DYSTONIA, 08/29/12) DEYA DELGADO DO Jul 27, 2016 19:59 CONOR ROSE MD Jul 28, 2016 17:42
[2016-07-27] MEDS ORDERED: NS 1,000 ML in APPROPRIATE DILUENT 1 EA IV ONE (21:22)
[2016-07-27 21:28] VITALS: BP 149/93
[2016-07-27] MEDS: ADDERALL 5 MG TAB PO SCH (22:20)
[2016-07-27] MEDS: ALPRAZolam 0.5 MG TAB PO SCH (22:20)
[2016-07-27] MEDS: NYSTATIN 500,000 U/5 ML SUSP UDC SS SCH (22:21)
[2016-07-27] MEDS: HEPARIN SOD (PORCINE) 5000 UNITS/ML VIAL SC SCH (22:22)
[2016-07-27] MEDS: MORPHINE 2 MG/ML 1ML SYRINGE IV PRN (22:31)
[2016-07-27] MEDS: CEFTAROLINE FOSAMIL 600 MG in D5W MINI-BAG PLUS 50 ML IV SCH (22:32)
[2016-07-27] MEDS: NS 1,000 ML IV SCH (23:40)
[2016-07-27 23:43] VITALS: BP 151/93
[2016-07-28] VITALS (10 sets, daily range): BP systolic 121–144; BP diastolic 69–90; O2SAT 90
[2016-07-28] MEDS: MORPHINE 2 MG/ML 1ML SYRINGE IV PRN ×3 (03:45→07:49)
[2016-07-28 05:31] LABS: MEAN CORPUSCULAR HEMOGLOBIN 33.1 pg (27.0-33.0); MEAN CORPUSCULAR HGB CONC 35.4 g/dl (32.0-36.5); MEAN CORPUSCULAR VOLUME 93.6 fl (80.0-96.0); RED CELL DISTRIBUTION WIDTH 12.8 % (11.5-14.5); WHITE BLOOD COUNT 12.8 K/mm3 (4.0-10.0)
[2016-07-28] MEDS: HEPARIN SOD (PORCINE) 5000 UNITS/ML VIAL SC SCH ×3 (05:47→21:43)
[2016-07-28] MEDS: NS 1,000 ML IV SCH ×4 (05:47→21:43)
[2016-07-28 05:58] LABS: ALBUMIN 2.8 GM/DL (3.2-5.2); ALBUMIN/GLOBULIN RATIO 0.78 (1.00-1.93); ALKALINE PHOSPHATASE 70 U/L (45-117); ALT/SGPT 147 U/L (12-78); ANION GAP 11 MEQ/L (8-16); AST/SGOT 675 U/L (15-37); BILIRUBIN,DIRECT 0.2 MG/DL (0.0-0.2); BLOOD UREA NITROGEN 22 MG/DL (7-18); CALCIUM LEVEL 7.8 MG/DL (8.5-10.1); CARBON DIOXIDE LEVEL 24 MEQ/L (21-32); CHLORIDE LEVEL 105 MEQ/L (98-107); CREATININE FOR GFR 1.06 MG/DL (0.70-1.30); GLOMERULAR FILTRATION RATE > 60.0 (>60); GLUCOSE, FASTING 99 MG/DL (70-105); POTASSIUM SERUM 3.2 MEQ/L (3.5-5.1); SODIUM LEVEL 140 MEQ/L (136-145); TOTAL PROTEIN 6.4 GM/DL (6.4-8.2)
[2016-07-28] MEDS: LEVOTHYROXINE 0.112 MG TAB (112 MCG) PO SCH (05:58)
--- NOTE | 2016-07-28 07:12 | REP ---
RIGHT HAND, FOUR VIEWS: There is no evidence of an acute fracture, dislocation or intrinsic bone disease. IMPRESSION: No fracture or dislocation. Signed by Yahir Linda MD 07/28/2016 01:53 P
--- NOTE | 2016-07-28 07:12 | REP ---
RIGHT HUMERUS: AP and lateral views of right humerus are performed. There is no acute fracture, dislocation or intrinsic bone disease. There appears to be edema in the region of the right chest wall and proximal upper extremity. IMPRESSION: Soft tissue edema without osseous abnormality. Signed by Yahir Linda MD 07/28/2016 01:53 P
--- NOTE | 2016-07-28 07:14 | REP ---
ULTRASOUND RIGHT UPPER EXTREMITY SOFT TISSUES: Real-time sonographic evaluation of the right upper extremity soft tissues performed in the region of redness and swelling, at the posterior right shoulder and mid upper arm. There is soft tissue edema. No fluid collection is seen. IMPRESSION: Soft tissue edema is seen in the region of redness and swelling. No fluid collection or abscess is seen. Signed by Yahir Linda MD 07/28/2016 01:53 P
[2016-07-28] MEDS ORDERED: POTASSIUM CHLORIDE 10 MEQ SR TABLET PO ONE (07:30)
[2016-07-28] MEDS: NYSTATIN 500,000 U/5 ML SUSP UDC SS SCH ×4 (08:06→21:43)
[2016-07-28] MEDS: PANTOPRAZOLE 40MG TAB (PROTONIX) PO SCH (08:07)
[2016-07-28] MEDS: ADDERALL 5 MG TAB PO SCH ×3 (08:07→17:15)
[2016-07-28] MEDS: ALPRAZolam 0.5 MG TAB PO SCH ×3 (08:07→17:15)
[2016-07-28] MEDS: PARoxetine 20 MG TAB PO SCH (08:08)
[2016-07-28] MEDS: PROPRANOLOL 60 MG LA CAP PO SCH (08:09)
--- NOTE | 2016-07-28 08:53 | ED PDOC ---
Provider Note Patient seen and examined by me in the ED yesterday (4 Jul at 1900) to rule out compartment syndrome secondary to RUE swelling. No history of trauma. Exam consistent with cellulitis. Exam reliable enough to rule out compartment syndrome by clinical exam. Radiographic workup revealed no abscess, DVT, or fracture. Full dictated consultation note pending Dictation # [id number]. Recommendations: -Abx treatment of cellulitis and pneumonia per primary team -elevate RUE for swelling control -re-consult orthopedics PRN if any significant change in exam Crispin Nicole MD Orthopedic surgeon MEENA NICOLE MD Jul 28, 2016 08:53
[2016-07-28] MEDS ORDERED: MORPHINE 15 MG SA TAB PO SCH (09:00)
[2016-07-28] MEDS: CEFTAROLINE FOSAMIL 600 MG in D5W MINI-BAG PLUS 50 ML IV SCH ×2 (09:41→21:43)
[2016-07-28] MEDS: MORPHINE 4 MG/ML 1ML SYRINGE IV PRN ×5 (09:42→21:50)
--- NOTE | 2016-07-28 11:32 | IPNPDOC ---
Text Note Date of Service The patient was seen on 07/28/16. NOTE Subjective: Patient is a 36 year old male with a PMHx of DLP, HTN, Hypothyroidism , Chronic pain, allergic rhinitis, Hx of substance abuse, Depression / Anxiety / ADHD / Panic attacks / PTSD / Agarophobia who presented to the ED with complaints of right arm pain that started 2 days ago. He noted he woke up from sleep in pain. Reported he had swelling, tenderness and difficulty with movement. He also noted bullae on his skin as well. Patient denied any trauma, recent antibiotics or medications. Reports that he has no recent travel, no change in clothes or exposure to anything that has touched his skin. He has been exposed to his friends cats, but denies any bites / scratches. Was wearing a long sleeve shirt when he was exposed. Patient was seen and examined at the bedside. He reports that his arm pain still persists and that he is requiring more pain medications. Is able to move his arm minimally - but is in severe pain. Objective: Vitals (See below) General: Lying in bed, no acute distress, comfortable, AAOx3 HEENT: NC, AT CVS: RRR, +S1S2 Lungs: Fair air entry b/l, + Crackles / rhonchi at R lung field Abdomen: Soft, ND, NT, +BSx4 Extremities: +PPx4, + Swelling and tenderness to right UE, +Bullae (some ruptured), - Calf tenderness Neuro: 5/5 strength at all extremities except RUE; RUE with minimal movement because of pain Assessment and plan: 1. Right arm pain - possibly 2/2 right arm cellulitis - Presented with right arm pain for 2 days; denies any exposure history - Physical reveals severe tenderness, tense skin, warmth, mild erythema, +bullae - US 3/4: No evidence of abscess or DVT, XR 3/4: No evidence of fracture - CT RUE 3/4: Diffuse subcutaneous swelling in shoulder and RU arm - cellulitis ; no osteomyelitis or lytic / blastic bone lesions - Leukocytosis trending down; CRP trending down - Blood cultures pending; Sputum cultures pending - Orthopedic surgery has evaluated - no evidence of compartment syndrome - c/w Ceftaroline (Day #2 of antibiotics) - c/w Morphine for pain control 2. Rhabdomyolysis - likely 2/2 [place] [address]; has been trending down - check urine myoglobin - c/w IV fluid hydration with NS 3. Acute renal failure - likely 2/2 pre-renal etiology; possibly 2/2 renal etiology - will check urinalysis - Cr has been trending down - c/w IV fluid hydration with NS 4. Transaminitis - likely 2/2 rhabdomyolysis - has been trending down - will follow 5. Community acquire pneumonia - No significant SOB, cough or fever - Physical reveals rhonchi - CT chest 3: Dense consolidation in RUL and RLL - multifocal pneumonia - Cultures pending - WBC and CRP trending down - c/w Ceftaroline 6. Thrush - HIV screen negative - c/w nystatin 7. Hypothyroidism - TSH within normal limits - c/w Levothyroxine 8. HTN - BP well controlled - c/w propranolol 9. PTSD / Depression / Anxiety / ADHD - c/w Xanax, Paroxetien and Adderal 10. GI prophylaxis - c/w protonix 11. DVT prophylaxis - c/w Heparin SQ VS,Fishbone, I+O VS, Fishbone, I+O Laboratory Tests 07/27/16 14:34 Calcium Level 8.5, Red Blood Count 5.71, Mean Corpuscular Volume 93.8, Mean Corpuscular Hemoglobin 33.4 H, Mean Corpuscular Hemoglobin Concent 35.6, Red Cell Distribution Width 12.6 07/28/16 04:48 Red Blood Count 4.98, Mean Corpuscular Volume 93.6, Mean Corpuscular Hemoglobin 33.1 H, Mean Corpuscular Hemoglobin Concent 35.4, Red Cell Distribution Width 12.8 Vital Signs Date Time Temp Pulse Resp B/P Pulse Ox O2 Delivery O2 Flow Rate FiO2 07/28/16 09:42 18 07/28/16 08:09 71 139/85 07/28/16 08:00 96.7 94 Room Air I&O- Last 24 Hours up to 6 AM 07/28/16 06:00 Intake Total 2190 ml Output Total 600 ml Balance 1590 ml LUIS SANDERS MD Jul 28, 2016 11:32
[2016-07-29] VITALS (12 sets, daily range): BP systolic 126–146; BP diastolic 67–95; O2SAT 92–94
[2016-07-29] MEDS: MORPHINE 4 MG/ML 1ML SYRINGE IV PRN ×6 (01:46→17:50)
[2016-07-29] MEDS: HEPARIN SOD (PORCINE) 5000 UNITS/ML VIAL SC SCH ×2 (05:20→14:19)
[2016-07-29] MEDS: NS 1,000 ML IV SCH ×2 (05:21→13:08)
[2016-07-29] MEDS: LEVOTHYROXINE 0.112 MG TAB (112 MCG) PO SCH (05:21)
[2016-07-29 05:46] LABS: MEAN CORPUSCULAR HEMOGLOBIN 32.9 pg (27.0-33.0); MEAN CORPUSCULAR HGB CONC 34.7 g/dl (32.0-36.5); MEAN CORPUSCULAR VOLUME 94.9 fl (80.0-96.0); RED CELL DISTRIBUTION WIDTH 12.8 % (11.5-14.5); WHITE BLOOD COUNT 10.6 K/mm3 (4.0-10.0)
[2016-07-29 06:22] LABS: ANION GAP 10 MEQ/L (8-16); BLOOD UREA NITROGEN 10 MG/DL (7-18); CARBON DIOXIDE LEVEL 24 MEQ/L (21-32); CHLORIDE LEVEL 106 MEQ/L (98-107); CREATININE FOR GFR 0.82 MG/DL (0.70-1.30); GLOMERULAR FILTRATION RATE > 60.0 (>60); GLUCOSE, FASTING 110 MG/DL (70-105); POTASSIUM SERUM 3.6 MEQ/L (3.5-5.1); SODIUM LEVEL 140 MEQ/L (136-145)
[2016-07-29] MEDS: ALPRAZolam 0.5 MG TAB PO SCH ×3 (08:27→16:42)
[2016-07-29] MEDS: ADDERALL 5 MG TAB PO SCH ×3 (08:28→16:42)
[2016-07-29] MEDS: NYSTATIN 500,000 U/5 ML SUSP UDC SS SCH ×3 (10:34→16:42)
[2016-07-29] MEDS: PANTOPRAZOLE 40MG TAB (PROTONIX) PO SCH (10:35)
[2016-07-29] MEDS: PARoxetine 20 MG TAB PO SCH (10:36)
[2016-07-29] MEDS: PROPRANOLOL 60 MG LA CAP PO SCH (10:36)
[2016-07-29] MEDS: CEFTAROLINE FOSAMIL 600 MG in D5W MINI-BAG PLUS 50 ML IV SCH (10:38)
--- NOTE | 2016-07-29 13:27 | IPNPDOC ---
Text Note Date of Service The patient was seen on 07/29/16. NOTE Subjective: Patient is a 36 year old male with a PMHx of DLP, HTN, Hypothyroidism , Chronic pain, allergic rhinitis, Hx of substance abuse, Depression / Anxiety / ADHD / Panic attacks / PTSD / Agarophobia who presented to the ED with complaints of right arm pain that started 2 days ago. He noted he woke up from sleep in pain. Reported he had swelling, tenderness and difficulty with movement. He also noted bullae on his skin as well. Patient denied any trauma, recent antibiotics or medications. Reports that he has no recent travel, no change in clothes or exposure to anything that has touched his skin. He has been exposed to his friends cats, but denies any bites / scratches. Was wearing a long sleeve shirt when he was exposed. Patient was seen and examined at the bedside. He notes that his arm pain has went down and he is able to have more mobility of his arm. Objective: Vitals (See below) General: Lying in bed, no acute distress, comfortable, AAOx3 HEENT: NC, AT CVS: RRR, +S1S2 Lungs: Fair air entry b/l, + Crackles / rhonchi at R lung field Abdomen: Soft, ND, NT, +BSx4 Extremities: +PPx4, + Swelling and tenderness to right UE, +Bullae (some ruptured), - Calf tenderness Neuro: 5/5 strength at all extremities except RUE; RUE with minimal movement because of pain - improving Assessment and plan: 1. Right arm pain - possibly 2/2 right arm cellulitis - Presented with right arm pain for 2 days; denies any exposure history - Physical reveals severe tenderness, tense skin, warmth, mild erythema, +bullae - US 3/4: No evidence of abscess or DVT, XR 3/4: No evidence of fracture - CT RUE 3/4: Diffuse subcutaneous swelling in shoulder and RU arm - cellulitis ; no osteomyelitis or lytic / blastic bone lesions - Leukocytosis and CRP trending down - Blood cultures and Sputum cultures currently negative - Orthopedic surgery has evaluated - no evidence of compartment syndrome - c/w Ceftaroline (Day #3 of antibiotics) - c/w Morphine for pain control 2. Rhabdomyolysis - likely 2/2 [place] [address]; continues to trend down - check urine myoglobin - c/w IV fluid hydration with NS 3. Acute renal failure - likely 2/2 pre-renal etiology; possibly 2/2 renal etiology - will check urinalysis - Cr has been trending down - c/w IV fluid hydration with NS 4. Transaminitis - likely 2/2 rhabdomyolysis - has been trending down - will follow 5. Community acquire pneumonia - No significant SOB, cough or fever - Physical reveals rhonchi - CT chest 07/27: Dense consolidation in RUL and RLL - multifocal pneumonia - Cultures pending - WBC and CRP trending down - c/w Ceftaroline 6. Thrush - HIV screen negative - c/w nystatin 7. Hypothyroidism - TSH within normal limits - c/w Levothyroxine 8. HTN - BP well controlled - c/w propranolol 9. PTSD / Depression / Anxiety / ADHD - c/w Xanax, Paroxetine and Adderall 10. GI prophylaxis - c/w Protonix 11. DVT prophylaxis - c/w Heparin SQ VS,Fishbone, I+O VS, Fishbone, I+O Laboratory Tests 07/29/16 05:06 Calcium Level 8.0 L, Red Blood Count 4.54, Mean Corpuscular Volume 94.9, Mean Corpuscular Hemoglobin 32.9, Mean Corpuscular Hemoglobin Concent 34.7, Red Cell Distribution Width 12.8 Vital Signs Date Time Temp Pulse Resp B/P Pulse Ox O2 Delivery O2 Flow Rate FiO2 07/29/16 13:07 18 Room Air 07/29/16 10:36 82 146/72 07/29/16 08:00 96.6 98 I&O- Last 24 Hours up to 6 AM 07/29/16 06:00 Intake Total 4800 ml Output Total 700 ml Balance 4100 ml LUIS SANDERS MD Jul 29, 2016 13:27
--- NOTE | 2016-07-30 03:00 | CR ---
DATE OF CONSULTATION: 07/27/2016 REASON FOR CONSULTATION: Right arm swelling. Rule out compartment syndrome. CHIEF COMPLAINT: Right arm pain. HISTORY OF PRESENT ILLNESS: Brad Mckinnon is a 36-year-old right hand-dominant male who has had a 1-day history of increasing right arm pain and swelling, which began by his shoulder and has spread distally about his right upper extremity. Presented to the emergency room earlier today for evaluation. He denies any associated neck pain, fevers, chills, or night sweats. He does report some subjective paresthesias on the medial side of his arm. He denies any falls, trauma, animal bites, IV drug abuse, or other traumatic mechanism or injury to the right upper extremity. PAST MEDICAL HISTORY: Posttraumatic stress disorder (PTSD). Hypothyroidism. MEDICATIONS: - Ambien - Synthroid - oxycodone for back pain ALLERGIES: HALDOL. PAST SURGICAL HISTORY: None. SOCIAL HISTORY: Patient is unemployed. He does not smoke cigarettes. Reports occasional marijuana use. Denies illicit drug use. FAMILY HISTORY: Noncontributory. REVIEW OF SYSTEMS: Constitutional: Patient denies recent fevers, but he says he has had "on-and-off colds all winter," which is not normal for him. He denies any constitutional symptoms. Neurologic: Positive for PTSD. Denies any seizures. Positive for tingling in his right upper extremity. Respiratory: No chest pain, shortness of breath or cough. Gastrointestinal (GI): No nausea, vomiting, or diarrhea. Endocrine: No heat or cold intolerance. Genitourinary (): No frequency of urination or burning with urination. PHYSICAL EXAM: Vital signs: Temperature 97.9, heart rate 81, respiratory rate 18, blood pressure 128/78. General: This is an overweight male, appears slightly older than stated age, in no acute distress. Neurologic: He is awake, alert, and oriented to person, place, and time. He has mild subjective paresthesias in the ulnar nerve distribution of the right upper extremity. He has intact motor function in his right upper extremity axillary, radial, median, ulnar, and posterior interosseous nerve (PIN) distributions. Cardiovascular: He has 2+ radial pulse. Brisk capillary refill to all digits in the right upper extremity. Skin Exam: There is one superficial blister on the lateral aspect of the right brachium with a 1 cm in diameter superficial abrasion. There is significant induration of the skin about the posterolateral deltoid. There is streaking erythema on the lateral aspect of the brachium extending distally to the lateral aspect of the forearm and diffusely about the hand. Musculoskeletal: Focused physical exam of the right upper extremity reveals indurated skin with erythema diffusely, as noted above. The forearm and brachium are nontender. Compartments are palpably soft. There is no pain with passive stretch of the fingers, wrist, or forearm. There is no pain with passive flexion, extension, internal and external rotation of the shoulder. Patient has some lateral-sided shoulder pain with active flexion of the shoulder. RADIOGRAPHIC STUDIES: Patient had plain radiographs of the humerus, wrist, and hand, which demonstrated no evidence of acute osseous abnormalities. A duplex ultrasound of the upper extremity was negative for deep venous thrombosis (DVT). A CT of the upper extremity, which included the chest, revealed evidence of fat stranding in the subcutaneous tissue around the shoulder and evidence of diffuse pneumonia in the right lung. LABORATORY STUDIES: Patient has a CK level of 53,000 and a creatinine level of 1.9. ASSESSMENT: This is a 36-year-old male with right upper extremity pain and swelling. Patient's clinical exam findings are not concerning for compartment syndrome based on the complete lack of pain with passive stretch, soft compartments in the forearm and brachium, and clinical exam and radiographic findings consistent with cellulitis and CT evidence of pneumonia. Patient also has laboratory evidence of acute renal failure. PLAN/RECOMMENDATIONS: Patient likely needs empiric antibiotics to treat his cellulitis and pneumonia. Patient may be placed in a sling or a splint for his right upper extremity for soft tissue rest. The patient was counseled to elevate his right upper extremity for soft tissue rest and for swelling control. Based on his clinical exam, objective compartment pressure measurement was not indicated given that he was awake and gave a reliable exam; however, if his mental status changes or if there is any significant change in his condition, please reconsult as necessary for re-evaluation. Otherwise, no specific orthopedic intervention or followup is required.
== END 2016-07-29 23:10 | disposition left against medical advice (07) | DRG 602 ==
LOC: EDBD 14:19 → M ED 15:26 → M ED INP 19:02 → M PCU 21:14
PROVIDERS: ADMIT Internal Medicine; ATTEND Internal Medicine
DX: L03.113 Cellulitis of right upper limb (principal); J18.9 Pneumonia, unspecified organism; M62.82 Rhabdomyolysis; N17.9 Acute kidney failure, unspecified; B37.0 Candidal stomatitis; F32.9 Major depressive disorder, single episode, unspecified; F41.0 Panic disorder [episodic paroxysmal anxiety]; J30.9 Allergic rhinitis, unspecified; E03.9 Hypothyroidism, unspecified; F43.10 Post-traumatic stress disorder, unspecified; I10 Essential (primary) hypertension; G89.29 Other chronic pain; E86.0 Dehydration; F90.9 Attention-deficit hyperactivity disorder, unspecified type; Z88.8 Allergy status to other drugs, medicaments and biological substances

== ENCOUNTER 2016-08-04 20:29 | Inpatient (IN) | payer MEDICARE ==
[~2016-08-04] VITALS: Ht 172.7 cm; Wt 110.1 kg
[~2016-08-04 20:29] MED LIST changes: +ADDE5TAB5 PO; +CLIN1PAD2 TOP; +NEXI40CA PO; +OXYC10TA12 PO; +PAXI40TA2 PO; -SERT-141 PO; +SERT50TA PO
[2016-08-04] MEDS ORDERED: KEFL500C7 PO (20:46)
[2016-08-04 22:06] LABS: BASO % 0.5 % (0.0-1.0); EOS # 0.1 K/mm3 (0.0-0.50); EOS % 1.6 % (0.0-3.0); LARGE UNSTAINED CELL # 0.1 K/mm3 (0.0-0.4); LARGE UNSTAINED CELL % 1.7 % (0.0-4.0); LYMPH # 1.7 K/mm3 (1.5-4.5); MEAN CORPUSCULAR HEMOGLOBIN 32.6 pg (27.0-33.0); MEAN CORPUSCULAR HGB CONC 35.3 g/dl (32.0-36.5); MEAN CORPUSCULAR VOLUME 92.2 fl (80.0-96.0); MONO # 0.4 K/mm3 (0.0-0.8); MONO % 5.6 % (0.0-5.0); NEUTROPHILS % 68.6 % (36.0-66.0); PLATELET COUNT, AUTOMATED 267 k/mm3 (150-450); RED CELL DISTRIBUTION WIDTH 12.8 % (11.5-14.5); WHITE BLOOD COUNT 7.2 K/mm3 (4.0-10.0)
[2016-08-04 22:24] LABS: ALBUMIN/GLOBULIN RATIO 0.88 (1.00-1.93); ALKALINE PHOSPHATASE 56 U/L (45-117); ALT/SGPT 123 U/L (12-78); AST/SGOT 151 U/L (15-37); BILIRUBIN,DIRECT < 0.1 MG/DL (0.0-0.2); BILIRUBIN,TOTAL 0.5 MG/DL (0.2-1.0); ERYTHROCYTE SEDIMENTATION RATE 28 mm/hr (0-15); TOTAL PROTEIN 6.4 GM/DL (6.4-8.2)
[2016-08-04 22:35] LABS: ANION GAP 13 MEQ/L (8-16); BLOOD UREA NITROGEN 15 MG/DL (7-18); CALCIUM LEVEL 8.8 MG/DL (8.5-10.1); CARBON DIOXIDE LEVEL 28 MEQ/L (21-32); CHLORIDE LEVEL 105 MEQ/L (98-107); CREATININE FOR GFR 0.74 MG/DL (0.70-1.30); GLOMERULAR FILTRATION RATE > 60.0 (>60); GLUCOSE, FASTING 89 MG/DL (70-105); POTASSIUM SERUM 3.6 MEQ/L (3.5-5.1); SODIUM LEVEL 146 MEQ/L (136-145)
--- NOTE | 2016-08-04 23:00 | REPUSA ---
CLINICAL HISTORY: Right upper extremity edema COMMENTS: Real time sonography with duplex doppler of the right upper extremity was performed with attention to the major deep venous structures. The right internal jugular, cephalic,radial and ulnar veins all reveal complete lumen compressibility without intraluminal thrombus. The right subclavian and axillary veins are also clear of thrombus. T here is normal spontaneous phasic flow and augmentation throughout the deep veins. Clot is noted in t he right basilic vein. IMPRESSION: No evidence of DVT in the right upper extremity. Superficiial thrombophlebitis as above. Thank you for your kind referral of this patient.
[2016-08-04] MEDS ORDERED: AMPH30CA PO (23:02)
[2016-08-04] MEDS ORDERED: NS 1,000 ML IV SCH (23:35)
[2016-08-04] MEDS ORDERED: MORPHINE 4 MG/ML 1ML SYRINGE IV ONE (23:45)
[2016-08-05] MEDS ORDERED: CEFTAROLINE FOSAMIL 600 MG in D5W MINI-BAG PLUS 50 ML IV SCH ×2
[2016-08-05] MEDS ORDERED: ONDANSETRON 4MG/2ML VIAL (J2405) IV PRN (00:30)
[2016-08-05] MEDS ORDERED: BISACODYL 5 MG TAB PO PRN (00:30)
[2016-08-05 01:00] VITALS: BP 156/86
[2016-08-05] MEDS: NS 1,000 ML IV SCH ×2 (01:20→13:08)
[2016-08-05] MEDS: MORPHINE 2 MG/ML 1ML SYRINGE IV PRN ×5 (01:21→22:10)
[2016-08-05] MEDS: oxyCODONE 5MG TAB PO PRN ×3 (02:19→20:04)
[2016-08-05] MEDS: zolPIDEM TARTRATE 5 MG TAB PO PRN ×2 (02:19→23:39)
[2016-08-05] MEDS: LEVOTHYROXINE 0.112 MG TAB (112 MCG) PO SCH (05:35)
[2016-08-05] MEDS: HEPARIN SOD (PORCINE) 5000 UNITS/ML VIAL SC SCH ×3 (05:36→20:04)
[2016-08-05 06:00] VITALS: BP 156/85
[2016-08-05 07:18] LABS: MEAN CORPUSCULAR HEMOGLOBIN 33.4 pg (27.0-33.0); MEAN CORPUSCULAR HGB CONC 35.5 g/dl (32.0-36.5); RED CELL DISTRIBUTION WIDTH 12.8 % (11.5-14.5); WHITE BLOOD COUNT 6.8 K/mm3 (4.0-10.0)
[2016-08-05 07:45] LABS: ALBUMIN 2.6 GM/DL (3.2-5.2); ALBUMIN/GLOBULIN RATIO 0.72 (1.00-1.93); ALKALINE PHOSPHATASE 55 U/L (45-117); ALT/SGPT 108 U/L (12-78); ANION GAP 7 MEQ/L (8-16); AST/SGOT 119 U/L (15-37); BILIRUBIN,TOTAL 0.3 MG/DL (0.2-1.0); BLOOD UREA NITROGEN 14 MG/DL (7-18); CALCIUM LEVEL 8.2 MG/DL (8.5-10.1); CARBON DIOXIDE LEVEL 28 MEQ/L (21-32); CHLORIDE LEVEL 107 MEQ/L (98-107); CREATININE FOR GFR 0.84 MG/DL (0.70-1.30); GLOMERULAR FILTRATION RATE > 60.0 (>60); GLUCOSE, FASTING 117 MG/DL (70-105); POTASSIUM SERUM 3.3 MEQ/L (3.5-5.1); SODIUM LEVEL 142 MEQ/L (136-145); TOTAL PROTEIN 6.2 GM/DL (6.4-8.2)
[2016-08-05] MEDS ORDERED: ISOVUE-370 76% 100ML VIAL (Q9967) As Ordered ONE (07:59)
--- NOTE | 2016-08-05 09:08 | REP ---
CT study of the right upper extremity with IV contrast: History: Cellulitis, evaluate for necrotizing fasciitis. Comparison is made with radiographs from July 27, [address] study of the right upper extremity from July 27, 2016. CT contrast dose: 100 mL Isovue [address] findings: There is no abnormal soft tissue gas. There is, however, a fairly marked pattern of diffuse subcutaneous edema in the periphery of the right forearm diffusely extending into the right upper arm. There is some heterogeneous skeletal muscle enhancement in the triceps muscle and deltoid muscle as well as the subscapularis muscle and the lateral aspect of the latissimus dorsi. There is some contrast enhancement at the myofascial interfaces in heterogeneous discontinuous pattern. No mikki abscess is appreciated. Bone window settings show no bony destructive lesion. No fracture is noted. No filling defect is seen in any vascular structure. Normal axillary lymph nodes are visible. The glenohumeral and acromioclavicular joints are normally aligned. Impression: Myofasciitis pattern noted in the forearm and upper arm and periarticular regions about the shoulder. No abscess seen. No soft tissue gas noted. The diffuse edematous changes appear to be more pronounced when compared with the July 27, 2016 prior study. The previously noted right lung infiltrates appear to have cleared based on the accompanying sed special education teacher radiograph. Signed by Ulysses Paz MD 08/05/2016 12:17 P
[2016-08-05] MEDS: PROPRANOLOL 60 MG LA CAP PO SCH (09:23)
[2016-08-05] MEDS: PANTOPRAZOLE 40MG TAB (PROTONIX) PO SCH (09:24)
[2016-08-05] MEDS: PARoxetine 20 MG TAB PO SCH (09:24)
[2016-08-05] MEDS: ADDERALL 5 MG TAB PO SCH ×3 (09:24→17:26)
[2016-08-05] MEDS: ALPRAZolam 0.5 MG TAB PO SCH ×3 (09:24→20:04)
[2016-08-05] MEDS: PIPERACILLIN/TAZOBACTAM SOD 3.375 GM in D5W MINI-BAG PLUS 50 ML IV SCH ×3 (09:25→20:04)
[2016-08-05 10:00] VITALS: BP 140/70
[2016-08-05] MEDS ORDERED: VANCOMYCIN HCL 500 MG in D5W MINI-BAG PLUS 100 ML IV ONE (10:00)
--- NOTE | 2016-08-05 10:02 | REP ---
Right upper quadrant sonography: History: Hepatitis. Findings: Scanning through the right upper quadrant of the abdomen demonstrates a normal sized thin-walled gallbladder without evidence of stone or polyp. Common bile duct is normal measuring 0.5 cm in greatest diameter. There is some increased echogenicity in the liver parenchyma consistent with fatty infiltration. No focal liver lesion seen. Pancreas is obscured by abdominal gas. No visible ascites is seen. No right renal abnormality is noted. Right kidney measures 10.9 x 6.2 x 5.6 cm. Impression: Mild fatty infiltration of the liver. Otherwise negative right upper quadrant sonography. Signed by Ulysses Paz MD 08/05/2016 12:21 P
--- NOTE | 2016-08-05 10:04 | PHACANCOPD ---
PHARMACY VANCOMYCIN DOSING Pt Demographics Demographics Patient Age:36 , Weight:111.300 , Gender: male Adjusted Body Weight Date: 08/05/16, Adjusted Body Weight: [85.56] Kg Events Past 24 Hours Events Past 24 Hours: YES: Pending Diagnostics Vancomycin Vancomycin indication: cellulitis Vancomycin Target Ranges: 15-20 mcg/ml Vancomycin Load Y/N: Yes Load Dose Date Time Vancomycin Load Dose: 1500mg Date: 08/05/16 Time: 0900 Vancomycin Dose Date: 08/05/16. Current Vancomycin Dose: [1g IV Q8H] Intermittent Dosing?: No Labs Labs Item Value Date Time White Blood Count 6.8 K/mm3 08/05/16 0657 White Blood Count 7.2 K/mm3 08/04/16 2145 Erythrocyte Sedimentation Rate 25 mm/hr H 08/05/1657 Erythrocyte Sedimentation Rate 28 mm/hr H 08/04/16 2145 Creatinine 0.84 MG/DL 08/05/1657 Creatinine 0.74 MG/DL 08/04/16 2145 C-Reactive Protein, Quantitative 1.28 MG/DL H 08/05/16 0657 C-Reactive Protein, Quantitative 1.38 MG/DL H 08/04/16 2145 Micro Microbiology 08/04/16 Blood Culture, Received Pending 08/04/16 Blood Culture, Received Pending Creatinine Clearance Date:08/05/16. Estimated Creatinine Clearance: ~[>100ml/min]. Pending Labs Vancomycin trough scheduled 08/06/16 @1600, prior to the 5th dose Assessment and Plan Maintaining Current Dose?: Yes Reason for dose change: No Dose Change Pharmacist Note Pharmacist Note Date: 08/05/16. Pharmacist note: Day #1 empiric zosyn/vancomycin initiated with a 1500mg loading dose @0900, followed by a maintenance regimen of 1g IV Q8H for the treatment of cellulitis - aiming for a goal trough of 15-20mcg/ml. The patient was previously here 07/27/16 with rhabdomyolysis, CAP, and cellulitis of the right arm. The patient was started on Ceftaroline at that time, but left AMA. Now returns with worsening pain in the right arm. Patient is currently afebrile, and WBC is WNL. ESR and CRP are both elevated. No PMH of MRSA or vanco use here at [facility]. Blood cultures are pending. A vanco trough has been scheduled 08/06/16 @ 1600, prior to the 5th dose. We will continue to monitor and make adjustments as needed. [facility] Aug 05, 2016 10:03
[2016-08-05] MEDS: VANCOMYCIN HCL 1,000 MG, VIAL MATE ADAPTER 1 EACH in D5W 250 ML IV SCH ×2 (10:17→17:26)
[2016-08-05 14:00] VITALS: BP 138/90
[2016-08-05] MEDS ORDERED: ATORVASTATIN 20 MG TAB PO SCH (21:00)
[2016-08-05 22:00] VITALS: BP 137/87
--- NOTE | 2016-08-05 22:06 | HPE ---
DATE OF ADMISSION: 08/05/2016 PRIMARY CARE PHYSICIAN: Dr. Quispe CHIEF COMPLAINT: Arm swelling. HISTORY OF PRESENT ILLNESS: The patient is a 36-year-old man who was actually admitted July 27-July 29. At that time he was admitted with the diagnosis of pneumonia, as well as cellulitis of the right hand. He did have swelling of the right hand at that time. He was treated with ceftaroline and had good improvement in his symptoms; however, he elected to leave the hospital against medical advice on July 29. He was on ceftaroline upon leaving against medical advice, he was given a prescription for Keflex from his primary care provider. He took this for several days; however, he noticed progressive worsening of his symptoms to the point where his arm began swelling up and becoming painful to the point that it prompted him to present to the emergency room today once again. At this time he states that he made a mistake leaving against medical advice and he is agreeable to be admitted until the infection is cleared. He tells me he has not had fevers, chills, no chest pain, shortness of breath, nausea, vomiting or diarrhea. He denies any trauma to the arm. PAST MEDICAL HISTORY: I 1. Cellulitis. 2. Rhabdomyolysis. 3. History of pneumonia during his last stay. 4. Hypothyroidism. 5. Substance abuse. 6. Hypertension. 7. Depression. 8. Anxiety. 9. Attention deficit hyperactivity disorder (ADHD). 10. Post traumatic stress disorder (PTSD). 11. Panic attacks. 12. Transaminitis. 13. Insomnia. ALLERGIES: HALDOL, RISPERIDONE, ZONISAMIDE. PAST SURGICAL HISTORY: None. SOCIAL HISTORY: Former tobacco use, quit 12 years ago. Active marijuana smoker. Lives alone. Denies alcohol use. HOME MEDICATIONS: - cephalexin 1 gram three times a day - Adderall 30 mg three times a day - Xanax 1 mg three times a day - atorvastatin 20 mg nightly - Nexium 40 mg daily - Synthroid 112 mcg daily - oxycodone 10 mg every eight hours as needed for pain - Paxil 40 mg daily - propranolol 120 mg daily - Ambien 5 mg nightly as needed for sleep FAMILY HISTORY: Noncontributory. REVIEW OF SYSTEMS: Negative other than history of present illness (HPI). PHYSICAL EXAMINATION: VITAL SIGNS: Temperature 96.6, pulse 96, respiratory rate 18, blood pressure 145/95, Oxygen saturation 100% on room air. GENERAL: He is a middle age-muscular man. He is lying in the stretcher comfortable. He does not appear to be in any acute distress whatsoever. HEENT: Cranial nerve II-XII are grossly intact. He has moist mucous membranes. There is no elevation of central venous pressure. CARDIOVASCULAR EXAM: S1, S2. Regular. RESPIRATORY EXAM: Clear. ABDOMINAL EXAM: Benign. EXTREMITIES: There is no clubbing or cyanosis. On his right deltoid he has a 5 x 5 area of well demarcated erythema which is blanching and tender to touch. On his lateral biceps he has what appears to be an abrasion with ulceration and crusting which is also a well demarcated area with erythema but distinct from the region of his deltoid. On the medial aspect of his arm he also has an area which looks like a superficial ulceration potentially a bulla with some erythema and tenderness on palpation. Distally his hand has 2+ edema and with an abrasion on the lateral aspect of his right wrist; however, no surrounding areas of erythema distally. LABORATORY DATA: WBC 7.2, hemoglobin 14.8, hematocrit 41.8, platelet count 267, ESR 28 trending down from his last day his ESR and his WBC. Sodium 146, potassium 3.6, chloride 105, bicarbonate 28, BUN 15, creatinine 0.7, AST 151, ALT 123 up from his last visit. CK 2245 trending down from his last day, CRP 1.3 trending down from his last stay. INR 1.0. Blood cultures are pending. IMAGING: The patient had a duplex ultrasound which revealed no evidence of deep venous thrombosis (DVT) but it did reveal a superficial thrombophlebitis in the right basilic vein. ASSESSMENT AND PLAN: This is a 36-year-old man with cellulitis of the right upper extremity. PROBLEMS: 1. Cellulitis of the right upper extremity. There are three separately, well demarcated areas of erythema which is somewhat peculiar for an active infection, at least three areas at once. For the time being I will admit him and place him on ceftaroline. All of his inflammatory markers do appear to be trending down; however the pain and swelling in his arm appears to be worsening. I will provide him with normal saline. If the patient fails to improve with appropriate broad-spectrum antibiotics, could consider infectious disease consultation. Less likely is also a vasculitic dermatological condition. 2. Superficial thrombophlebitis. Could potentially be septic in explaining the significant edema associated with the distal aspect of his arm. He will be on broad-spectrum antibiotics, try to keep his arm elevated. 3. Substance abuse. The patient actively used THC. He denies any intravenous drug abuse. Will check the urine toxicology on him. 4. Hepatitis. Unclear etiology during his last stay was attributed to his rhabdomyolysis; however at this time it remains elevated. At this time will stop his statin and see if that improves. Also, he did have an HIV test which was negative during his last stay, and an CLAUDIA which was negative also. I will check the serum ceruloplasmin and a right upper quadrant ultrasound but I am suspicious for toxic exposure he may be ingesting outside of the hospital. 5. Attention deficit hyperactivity disorder (ADHD). Continue with Adderall. 6. Depression, anxiety, post traumatic stress disorder (PTSD). Continue with Paxil. 7. Insomnia. Continue with Ambien. 8. Hypothyroidism. Continue with Synthroid. 9. Hypertension. Continue with propranolol. 10. Dyslipidemia. We are holding the statin. DISPOSITION: The patient is admitted to the medical/surgical floor and will be followed by Dr. Deutsch starting at 7 a.m.
[2016-08-05] MEDS: CLINDAMYCIN 900 MG in APPROPRIATE DILUENT 1 EA IV SCH (22:10)
[2016-08-06] MEDS: VANCOMYCIN HCL 1,000 MG, VIAL MATE ADAPTER 1 EACH in D5W 250 ML IV SCH ×3 (01:13→17:14)
[2016-08-06] MEDS ORDERED: VANCOMYCIN HCL 500 MG in D5W MINI-BAG PLUS 100 ML IV ONE (02:00)
[2016-08-06] MEDS: MORPHINE 2 MG/ML 1ML SYRINGE IV PRN ×3 (02:31→22:48)
[2016-08-06] MEDS: PIPERACILLIN/TAZOBACTAM SOD 3.375 GM in D5W MINI-BAG PLUS 50 ML IV SCH ×4 (02:31→21:38)
[2016-08-06] MEDS: NS 1,000 ML IV SCH ×2 (03:02→16:22)
[2016-08-06] MEDS: LEVOTHYROXINE 0.112 MG TAB (112 MCG) PO SCH (05:19)
[2016-08-06] MEDS: HEPARIN SOD (PORCINE) 5000 UNITS/ML VIAL SC SCH ×3 (05:19→21:38)
[2016-08-06 06:00] VITALS: BP 137/87
[2016-08-06] MEDS: CLINDAMYCIN 900 MG in APPROPRIATE DILUENT 1 EA IV SCH ×3 (06:15→22:48)
[2016-08-06 07:16] LABS: MEAN CORPUSCULAR HEMOGLOBIN 33.2 pg (27.0-33.0); MEAN CORPUSCULAR HGB CONC 35.7 g/dl (32.0-36.5); MEAN CORPUSCULAR VOLUME 92.9 fl (80.0-96.0); RED CELL DISTRIBUTION WIDTH 12.8 % (11.5-14.5); WHITE BLOOD COUNT 8.6 K/mm3 (4.0-10.0)
[2016-08-06 07:40] LABS: ALBUMIN 2.9 GM/DL (3.2-5.2); ALBUMIN/GLOBULIN RATIO 0.83 (1.00-1.93); ALKALINE PHOSPHATASE 47 U/L (45-117); ALT/SGPT 91 U/L (12-78); ANION GAP 6 MEQ/L (8-16); AST/SGOT 94 U/L (15-37); BILIRUBIN,TOTAL 0.6 MG/DL (0.2-1.0); BLOOD UREA NITROGEN 16 MG/DL (7-18); CALCIUM LEVEL 8.5 MG/DL (8.5-10.1); CARBON DIOXIDE LEVEL 30 MEQ/L (21-32); CHLORIDE LEVEL 105 MEQ/L (98-107); CREATININE FOR GFR 0.83 MG/DL (0.70-1.30); GLOMERULAR FILTRATION RATE > 60.0 (>60); GLUCOSE, FASTING 65 MG/DL (70-105); SODIUM LEVEL 141 MEQ/L (136-145); TOTAL PROTEIN 6.4 GM/DL (6.4-8.2)
[2016-08-06] MEDS: ADDERALL 5 MG TAB PO SCH ×3 (08:41→17:11)
[2016-08-06] MEDS: PARoxetine 20 MG TAB PO SCH (08:41)
[2016-08-06] MEDS: ALPRAZolam 0.5 MG TAB PO SCH ×3 (08:42→21:38)
[2016-08-06] MEDS: PROPRANOLOL 60 MG LA CAP PO SCH (08:42)
[2016-08-06] MEDS: PANTOPRAZOLE 40MG TAB (PROTONIX) PO SCH (08:42)
[2016-08-06 10:00] VITALS: BP 128/82; O2SAT 93
[2016-08-06] MEDS: oxyCODONE 5MG TAB PO PRN (10:05)
--- NOTE | 2016-08-06 10:46 | CR ---
DATE OF CONSULTATION: 08/05/2016 CHIEF COMPLAINT: Right arm swelling. HISTORY OF PRESENT ILLNESS: The patient was admitted over 24 hours ago for right arm swelling. He had previously been admitted about a week ago for pneumonia and he had left against medical advice and then was taking oral antibiotics at home. He presented back to the emergency room with increased right arm pain and swelling and was admitted by the hospitalist service for cellulitis and started on broad-spectrum intravenous (IV) antibiotics. Since he has been here, he has been afebrile, inflammatory markers have been down trending. Overall he feels better, he feels his right arm swelling and pain is improving steadily and he has no new complaints. He has not had any fever, chest pain, or shortness of breath at any point through this process. PAST MEDICAL HISTORY: Multiple medical and psychiatric comorbidities which are available for review in the chart. PHYSICAL EXAMINATION: Well-appearing male in no acute distress. He is resting comfortably in bed. He is alert and oriented times three. Focus examination of the right upper extremity there is diffuse swelling and edema which is not pitting throughout the right upper extremity from the shoulder to the fingertips. He has a 2+ radial pulse. The finger tips are pink, warm, and well-perfused, and he has intact sensation to light touch throughout the right hand. He demonstrates intact radial, median, and ulnar nerve motor function into the right hand, somewhat limited range of motion due to the swelling. He has several focal areas of induration, at least three, in the upper arm on the lateral and the medial aspect. These terminate at about the level of the shoulder and do not appear to involve the chest wall. There is no palpable areas of fluctuance and some superficial skin abrasions, but otherwise the skin is intact. The ultrasound of the right upper extremity was negative for deep venous thrombosis (DVT). The CT scan of the right upper extremity, I do agree with the radiologist's report, there is no focal fluid collection, diffuse soft tissue swelling and edema is appreciated as somewhat worse than the previous examination. ASSESSMENT: Cellulitis of the right upper extremity as above. Apparently responding well to IV antibiotics. PLAN: At this point do not see any role for surgical intervention. I would recommend continued monitoring. I would continue with broad-spectrum IV antibiotics and I will sign out the care of this patient going forward to the orthopedic team for continued monitoring. The patient is amenable to this plan and feels he is improving steadily and I discussed as well the above with the inpatient management physician and they understand and agree.
[2016-08-06 14:00] VITALS: BP 144/85
[2016-08-06 17:38] VITALS: O2SAT 94
[2016-08-06 20:00] VITALS: O2SAT 95
[2016-08-06] MEDS: oxyCODONE 20 MG CR TAB PO SCH (21:37)
[2016-08-06 22:00] VITALS: BP 148/98
[2016-08-07] MEDS: VANCOMYCIN HCL 1,000 MG, VIAL MATE ADAPTER 1 EACH in D5W 250 ML IV SCH ×3 (01:06→19:24)
[2016-08-07] MEDS: MORPHINE 2 MG/ML 1ML SYRINGE IV PRN ×5 (01:07→21:18)
[2016-08-07] MEDS ORDERED: VANCOMYCIN HCL 500 MG in D5W MINI-BAG PLUS 100 ML IV ONE (02:00)
[2016-08-07] MEDS: PIPERACILLIN/TAZOBACTAM SOD 3.375 GM in D5W MINI-BAG PLUS 50 ML IV SCH ×4 (02:27→19:40)
[2016-08-07 06:00] VITALS: BP 148/91
[2016-08-07] MEDS: HEPARIN SOD (PORCINE) 5000 UNITS/ML VIAL SC SCH ×4 (06:04→22:03)
[2016-08-07] MEDS: NS 1,000 ML IV SCH ×2 (06:04→19:41)
[2016-08-07] MEDS: LEVOTHYROXINE 0.112 MG TAB (112 MCG) PO SCH (06:05)
[2016-08-07] MEDS: CLINDAMYCIN 900 MG in APPROPRIATE DILUENT 1 EA IV SCH ×2 (06:05→16:40)
[2016-08-07] MEDS: ADDERALL 5 MG TAB PO SCH ×3 (08:05→16:24)
[2016-08-07] MEDS: PARoxetine 20 MG TAB PO SCH (08:07)
[2016-08-07] MEDS: PANTOPRAZOLE 40MG TAB (PROTONIX) PO SCH (08:07)
[2016-08-07] MEDS: PROPRANOLOL 60 MG LA CAP PO SCH (08:08)
[2016-08-07] MEDS: ALPRAZolam 0.5 MG TAB PO SCH ×3 (08:08→20:14)
[2016-08-07] MEDS: oxyCODONE 20 MG CR TAB PO SCH ×2 (08:12→20:15)
[2016-08-07 08:32] LABS: ALBUMIN 3.2 GM/DL (3.2-5.2); ALBUMIN/GLOBULIN RATIO 0.82 (1.00-1.93); ALKALINE PHOSPHATASE 51 U/L (45-117); ALT/SGPT 87 U/L (12-78); ANION GAP 7 MEQ/L (8-16); AST/SGOT 71 U/L (15-37); BILIRUBIN,TOTAL 0.5 MG/DL (0.2-1.0); BLOOD UREA NITROGEN 12 MG/DL (7-18); CALCIUM LEVEL 8.6 MG/DL (8.5-10.1); CARBON DIOXIDE LEVEL 29 MEQ/L (21-32); CHLORIDE LEVEL 102 MEQ/L (98-107); CREATININE FOR GFR 0.88 MG/DL (0.70-1.30); GLOMERULAR FILTRATION RATE > 60.0 (>60); GLUCOSE, FASTING 90 MG/DL (70-105); POTASSIUM SERUM 3.5 MEQ/L (3.5-5.1); SODIUM LEVEL 138 MEQ/L (136-145); TOTAL PROTEIN 7.1 GM/DL (6.4-8.2)
[2016-08-07 08:54] LABS: MEAN CORPUSCULAR HGB CONC 35.7 g/dl (32.0-36.5); MEAN CORPUSCULAR VOLUME 92.3 fl (80.0-96.0); RED CELL DISTRIBUTION WIDTH 12.8 % (11.5-14.5); WHITE BLOOD COUNT 7.2 K/mm3 (4.0-10.0)
--- NOTE | 2016-08-07 11:49 | IPNPDOC ---
Subjective Date Seen The patient was seen on 08/06/16. Subjective Chief Complaint/HPI The patient is a 36-year-old male admitted with a reason for visit of Cellulitis. Events since last encounter pt seen and examined still has pain and swelling around his right arm but has improved since yesterday Constitutional: Denies: Chills, Fever, Night Sweats Musculoskeletal: Reports: Arm Pain, Shoulder Pain Objective Physical Examination General Exam: Positive: No Acute Distress Eye Exam: Positive: Conjunctiva & lids normal, PERRLA Chest Exam: Positive: Clear to auscultation, Normal air movement Heart Exam: Positive: Normal S1, Normal S2, Rate Normal, Regular Rhythm, Negative: Murmurs, Rubs Abdomen Exam: Positive: Normal bowel sounds, Soft, Negative: Hepatospenomegaly, Tenderness Extremity Exam: Positive: Swelling, Tenderness (right arm) Assessment /Plan Problems (1) Cellulitis of arm, right Status: Acute Problem Text: * continue antibiotics * ortho evaluated him last night * no procedures at this time (2) Rhabdomyolysis Status: Acute Response to Treatment: Improving (3) Cellulitis Status: Acute Response to Treatment: Improving Plan/VTE VTE Prophylaxis Ordered?: Yes VS, I&O, 24H, [facility] Vital Signs/I&O Vital Signs Date Time Temp Pulse Resp B/P Pulse Ox O2 Delivery O2 Flow Rate FiO2 08/06/16 17:38 94 0.0 08/06/16 14:00 95.3 62 16 144/85 Room Air I&O- Last 24 Hours up to 6 AM 08/06/16 06:00 Intake Total 3600 ml Output Total 600 ml Balance 3000 ml Laboratory Data 24H LABS Laboratory Tests 2 08/06/16 07:02: Blood Urea Nitrogen 16, Creatinine 0.83, Sodium Level 141, Potassium Level 4.0# , Chloride Level 105, Carbon Dioxide Level 30, Calcium Level 8.5, Aspartate Amino Transf (AST/SGOT) 94H, Alanine Aminotransferase (ALT/SGPT) 91H, Alkaline Phosphatase 47, Total Bilirubin 0.6#, Total Protein 6.4, Albumin 2.9L, Albumin/ Globulin Ratio 0.83L, Anion Gap 6L, C-Reactive Protein, Quantitative 0.99H, Erythrocyte Sedimentation Rate 13, Glomerular Filtration Rate > 60.0 08/06/16 16:33: Vancomycin Level Trough 13.7 CBC/BMP Laboratory Tests 08/06/16 07:02 Calcium Level 8.5, Aspartate Amino Transf (AST/SGOT) 94 H, Alanine Aminotransferase (ALT/SGPT) 91 H, Alkaline Phosphatase 47, Total Bilirubin 0.6 # , Total Protein 6.4, Albumin 2.9 L, Red Blood Count 4.20 L, Mean Corpuscular Volume 92.9, Mean Corpuscular Hemoglobin 33.2 H, Mean Corpuscular Hemoglobin Concent 35.7, Red Cell Distribution Width 12.8 Microbiology Microbiology 08/04/16 Blood Culture - Preliminary, Resulted No growth after 24 hours . All specim... 08/04/16 Blood Culture - Preliminary, Resulted No growth after 24 hours . All specim... 08/06/16 Wound Culture, Received Pending COBY DOWELL DO Aug 06, 2016 19:11
--- NOTE | 2016-08-07 12:01 | IPNPDOC ---
Subjective Date Seen The patient was seen on 08/07/16. Subjective Chief Complaint/HPI The patient is a 36-year-old male admitted with a reason for visit of Cellulitis. Events since last encounter pt seen and examined, arm has improved, no fevers overnight Objective Physical Examination General Exam: Positive: No Acute Distress Eye Exam: Positive: Conjunctiva & lids normal, PERRLA Chest Exam: Positive: Clear to auscultation, Normal air movement Heart Exam: Positive: Normal S1, Normal S2, Rate Normal, Regular Rhythm, Negative: Murmurs, Rubs Abdomen Exam: Positive: Normal bowel sounds, Soft, Negative: Hepatospenomegaly, Tenderness Extremity Exam: Positive: Swelling, Tenderness (right arm) Assessment /Plan Problems (1) Cellulitis of arm, right Status: Acute Problem Text: * continue antibiotics * ortho evaluated him last night * no procedures at this time (2) Rhabdomyolysis Status: Acute Response to Treatment: Improving Problem Text: * CK is trending down * kidney function stable * continue IV fluids at 75cc/hr (3) Cellulitis Status: Acute Response to Treatment: Improving Problem Text: * pt is on vanco/zosyn and clindamycin * will d/c clinda at this time (4) Hypothyroidism Status: Acute (5) HLD (hyperlipidemia) Status: Chronic Response to Treatment: Stable (6) ADHD (attention deficit hyperactivity disorder) Status: Chronic Response to Treatment: Stable (7) Anxiety Status: Chronic Response to Treatment: Stable (8) Depression Status: Chronic Response to Treatment: Stable (9) Substance abuse Status: Chronic Plan/VTE VTE Prophylaxis Ordered?: Yes VS, I&O, 24H, [facility] Vital Signs/I&O Vital Signs Date Time Temp Pulse Resp B/P Pulse Ox O2 Delivery O2 Flow Rate FiO2 08/07/16 08:12 17 08/07/16 08:08 81 148/91 08/07/16 06:16 Room Air 08/07/16 06:06 97 0.0 08/07/16 06:00 96.5 I&O- Last 24 Hours up to 6 AM 08/07/16 06:00 Intake Total 3695 ml Output Total 2500 ml Balance 1195 ml Laboratory Data 24H LABS Laboratory Tests 2 08/06/16 16:33: Vancomycin Level Trough 13.7 08/07/16 07:44: Blood Urea Nitrogen 12, Creatinine 0.88, Sodium Level 138, Potassium Level 3.5, Chloride Level 102, Carbon Dioxide Level 29, Calcium Level 8.6, Aspartate Amino Transf (AST/SGOT) 71H, Alanine Aminotransferase (ALT/SGPT) 87H, Alkaline Phosphatase 51, Total Bilirubin 0.5, Total Protein 7.1, Albumin 3.2, Albumin/ Globulin Ratio 0.82L, Anion Gap 7L, C-Reactive Protein, Quantitative 1.02H, Glomerular Filtration Rate > 60.0 CBC/BMP Laboratory Tests 08/07/16 07:44 Calcium Level 8.6, Aspartate Amino Transf (AST/SGOT) 71 H, Alanine Aminotransferase (ALT/SGPT) 87 H, Alkaline Phosphatase 51, Total Bilirubin 0.5, Total Protein 7.1, Albumin 3.2, Red Blood Count 4.61, Mean Corpuscular Volume 92.3, Mean Corpuscular Hemoglobin 33.0, Mean Corpuscular Hemoglobin Concent 35.7 , Red Cell Distribution Width 12.8 Microbiology Microbiology 08/04/16 Blood Culture - Preliminary, Resulted No Growth after 48 hours. All Specime... 08/04/16 Blood Culture - Preliminary, Resulted No Growth after 48 hours. All Specime... 08/06/16 Wound Culture, Received Pending COBY DOWELL DO Aug 07, 2016 12:01
--- NOTE | 2016-08-07 12:34 | REP ---
Right shoulder three views: Comparison is the right humerus dated 07/27/2016. Mineralization is normal. The acromioclavicular and glenohumeral articulations are unremarkable. There are no calcifications. There is no fracture or dislocation. Impression: Negative right shoulder. Signed by Yahir Hardy MD 08/07/2016 12:26 P
[2016-08-07 14:00] VITALS: BP 142/94
--- NOTE | 2016-08-07 18:18 | REP ---
Comparison right shoulder radiographs are from today. Comparison CT study from August 05, 2016 the findings of which are well known to me. 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 Technique: Axial, oblique coronal, oblique sagittal imaging planes are utilized. T1 and T2-weighted scans were obtained with and without fat saturation before and after intravenous gadolinium. Gadolinium enhancement dose: 20 ml of intravenous ProHance is administered. MRI findings: Cortical and medullary bone signal intensity are normal. Glenohumeral and acromioclavicular joints are normally aligned. There is a small to moderate right glenohumeral joint effusion. No bursal fluid collection is identified. There is extensive multifocal abnormal signal intensity in the skeletal muscle about the right shoulder involving multiple muscles focally. This is characterized by increased T2 signal and for the most part normal unenhanced T1 signal. There is some mottled T-1 hyperintensity in the affected portion of the deltoid muscle which may reflect small areas of intramuscular hemorrhage. On post gadolinium enhanced images there is dramatic pattern of lack of enhancement in the affected areas of skeletal muscle with a peripheral pattern of contrast enhancement at their edges implying inflammation. The muscles involved, in addition of the deltoid, include the pectoralis minor, the left latissimus dorsi muscle, a portion of the subscapularis muscle, and one of the proximal right upper intercostal muscles. There is diffuse subcutaneous edema pattern about the right shoulder with edematous pattern tracking along the myofascial interfaces and the subcutaneous fat muscle interfaces diffusely. No soft tissue abscess is appreciated. The findings however are suggestive of necrotizing fasciitis or myonecrosis. Impression: Necrotizing fasciitis/myonecrosis pattern in the periarticular musculature and soft tissues about the right shoulder. No evidence of osteomyelitis or abscess seen. Consider consultation with general surgery and infectious disease. Signed by Ulysses Paz MD 08/07/2016 06:09 P
[2016-08-07 22:00] VITALS: BP 134/93
[2016-08-08] MEDS: zolPIDEM TARTRATE 5 MG TAB PO PRN (00:12)
[2016-08-08] MEDS: MORPHINE 2 MG/ML 1ML SYRINGE IV PRN ×7 (00:12→22:45)
[2016-08-08] MEDS: PIPERACILLIN/TAZOBACTAM SOD 3.375 GM in D5W MINI-BAG PLUS 50 ML IV SCH ×4 (01:11→20:23)
[2016-08-08] MEDS ORDERED: traZODone 100 MG TAB PO ONE (02:00)
[2016-08-08] MEDS: LEVOTHYROXINE 0.112 MG TAB (112 MCG) PO SCH (05:18)
[2016-08-08 06:00] VITALS: BP 120/73
[2016-08-08 07:30] VITALS: O2SAT 95
[2016-08-08] MEDS ORDERED: MIRALAX *UNIT DOSE* 17GM PACKET PO PRN (07:30)
[2016-08-08 07:37] LABS: MEAN CORPUSCULAR HEMOGLOBIN 32.9 pg (27.0-33.0); MEAN CORPUSCULAR HGB CONC 35.3 g/dl (32.0-36.5); MEAN CORPUSCULAR VOLUME 93.3 fl (80.0-96.0); RED CELL DISTRIBUTION WIDTH 13.2 % (11.5-14.5)
[2016-08-08 08:00] LABS: ALBUMIN 2.9 GM/DL (3.2-5.2); ALBUMIN/GLOBULIN RATIO 0.88 (1.00-1.93); ALKALINE PHOSPHATASE 51 U/L (45-117); ALT/SGPT 97 U/L (12-78); ANION GAP 7 MEQ/L (8-16); AST/SGOT 81 U/L (15-37); BILIRUBIN,TOTAL 0.4 MG/DL (0.2-1.0); BLOOD UREA NITROGEN 13 MG/DL (7-18); CALCIUM LEVEL 8.5 MG/DL (8.5-10.1); CARBON DIOXIDE LEVEL 29 MEQ/L (21-32); CHLORIDE LEVEL 104 MEQ/L (98-107); GLOMERULAR FILTRATION RATE > 60.0 (>60); GLUCOSE, FASTING 104 MG/DL (70-105); POTASSIUM SERUM 3.5 MEQ/L (3.5-5.1); SODIUM LEVEL 140 MEQ/L (136-145); TOTAL PROTEIN 6.2 GM/DL (6.4-8.2)
[2016-08-08 08:08] LABS: IMMUNOGLOBULIN M 31.4 MG/DL (40-230)
[2016-08-08] MEDS: NS 1,000 ML IV SCH ×2 (08:22→21:42)
[2016-08-08] MEDS: PANTOPRAZOLE 40MG TAB (PROTONIX) PO SCH (08:41)
[2016-08-08] MEDS: DOCUSATE SODIUM 100 MG CAP PO SCH ×2 (08:41→20:25)
[2016-08-08] MEDS: ALPRAZolam 0.5 MG TAB PO SCH ×3 (08:42→20:24)
[2016-08-08] MEDS: PROPRANOLOL 60 MG LA CAP PO SCH (08:43)
[2016-08-08] MEDS: PARoxetine 20 MG TAB PO SCH (08:43)
[2016-08-08] MEDS: ADDERALL 5 MG TAB PO SCH ×3 (08:43→18:24)
[2016-08-08] MEDS: oxyCODONE 20 MG CR TAB PO SCH ×2 (08:44→20:25)
--- NOTE | 2016-08-08 09:46 | REP ---
CHEST X-RAY PA AND LATERAL: 08/08/2016 COMPARISON: CT chest 07/27/2016, chest x-ray 06/26/2010. CLINICAL HISTORY: Follow-up pneumonia. Lateral view is limited as the patient could not move an arm because of swelling and pain on that right side. The extensive consolidation of the right lung is much improved and almost completely resolved compared to the prior CT of 12 days ago. There is no effusion or lateral pleural thickening. No air bronchograms are seen. The left lung is clear. Some minor patchy infrahilar density on the right is noted. No cardiomegaly, vascular redistribution or pulmonary edema noted. The aorta is normal. Airway is intact. No mediastinal or hilar mass or contour abnormality. Bones intact. IMPRESSION: 1. Near-complete resolution of the extensive consolidation in the right upper and lower lobe from the previous CT on 07/27/2016. Questionable minor infrahilar patchy densities on the right side. No effusion. Left lung clear. No mediastinal or hilar contour abnormality. Signed by Randy Franks MD 08/08/2016 10:46 A
--- NOTE | 2016-08-08 10:17 | CR ---
DATE OF CONSULTATION: 08/07/2016 Asked to consult by Dr. Danielle Martin for evaluation of right upper extremity myonecrosis and cellulitis. HISTORY OF PRESENT ILLNESS: Brad is a pleasant, 36-year-old gentleman with a significant psychiatric history who was admitted on 07/27/2016 and discharged against medical advice on 07/29/2016. The patient presented to the emergency room with a 3-day history of hand swelling and numbness associated with a cough. He was found to have a white count of 17,000, cardiopulmonary resuscitation (CPR ) 20.5 and acute renal failure with rhabdomyolysis. Creatinine phosphokinase (CPK ) was 53,490. He had a blood cultures two times sent, which were negative. Sputum culture was of good quality with many white cells and culture was positive for Klebsiella pneumonia. Chest CT showed dense consolidation of the right upper lobe and right lower lobe consistent with multifocal pneumonia. The patient was treated with intravenous (IV) ceftaroline for a couple days, vancomycin and Zosyn for the first day. He left against medical advice because he getting agitated and left on 07/29/2016. He called his primary care provider from [place], where he grew up, who remains his primary care provider, who prescribed him Keflex 1000 mg by mouth four times a day. He was taking two tablets of 500 mg four times a day. The patient never had chills or fever. He has no history of IV drug use. He has a history of alcohol abuse but not in 5 years. He stated that he did not use any IV drugs and he is frustrated as he is not being given enough pain medication and treated like a drug-seeking patient. He states that on 08/04/2016 the patient came back to the hospital because he was having worsening swelling of his right arm with difficulty with movement. He still had no fever. On readmission, his white count was 7000. His sedimentation rate was 28, CRP was down to 1.38 from previous admission of 20.5. Repeat blood cultures times two sets were negative. Wound culture was done and is pending. He has been on vancomycin, Zosyn and clindamycin during this admission for the past 4 days. His past medical history is significant for: 1. 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 2. Hypothyroidism. 3. History of substance abuse, mostly alcohol, quit 5 years ago. Marijuana use occasional. 4. History of tobacco abuse, quit 2 years ago while on Wellbutrin. 5. Hypertension. 6. Major depression. Had electroconvulsive therapy (ECT) shock therapy done in [place] [facility] in April. He had eight sessions and was supposed to have some as an outpatient, but he is not able to commute to [place]. 7. Anxiety. 8. Attention deficit disorder. 9. Posttraumatic stress disorder. He witnessed 911 on his first day to college. 10. Panic attacks. 11. Insomnia. ALLERGIES: HALDOL, RISPERIDONE, ZONISAMIDE. Past surgical history is negative. SOCIAL HISTORY: He quit smoking about 2 years ago after he was started on Wellbutrin. History of marijuana use. He lives alone. His girlfriend left to [place] to get her PHD. He used to drink but quit 5 years ago. He does not have any kids. He is not . FAMILY HISTORY: Nonrevealing. His parents are both counselors in [facility]. LABORATORY DATA: White count is 7.2, hemoglobin 15.2, hematocrit 42.6, platelets 309. Sedimentation rate on admission was 28, it was done to 13 yesterday. Sodium 138, potassium 3.5, chloride 102, bicarbonate 29, BUN 12, creatinine 0.88 , glucose 90, calcium 8.6, bilirubin 0.5, AST 21, ALT 87, alkaline phosphatase 51. CRP is down to 1.02. Total protein 7.1, albumin 3.20. Plasmin is pending. AST was 151 on 08/04/2016 and currently 71. It was up to 939 on previous admission. ALT 123 on 08/04/2016, 87 on 08/07/2016. Alkaline phosphatase 56. CPK is down to 1840. Blood cultures two sets are no growth after 48 hours and culture from the right arm is still pending. IMAGING STUDIES: Vascular ultrasound show no evidence of deep venous thrombosis (DVT) in the right upper extremity. There is superficial thrombophlebitis in the right basilic vein. Liver ultrasound done on 08/05/2016 shows a fatty liver, otherwise negative. Upper extremity CT shows myofasciitis pattern noted in the forearm, upper arm. Periarticular lesions about the shoulder. No abscesses seen. No soft tissue gas but diffuse edematous changes appear to be more pronounced when compared to CT of 07/27/2016. Shoulder MRI done on 08/07/2016 shows necrotizing fasciitis/myonecrosis pattern in the periarticular musculature and soft tissues about the right shoulder, but no evidence of osteomyelitis or abscess seen. The muscles involved included deltoid, the pectoralis major, the right upper intercostal muscle and latissimus dorsi muscle. There is diffuse subcutaneous edema around the right shoulder as well. Shoulder x-ray was negative. On physical exam, he is a pleasant gentleman, good historian, in no acute distress. Temperature is 97.4, pulse 65, respirations 18, blood pressure 142/94, oxygen saturation 100% on room air. Heart: Normal S1, S2 with no murmurs, rubs or gallops identified. Lungs are clear. No wheezes or rhonchi. Abdomen: Obese, soft, nontender with stretch silva. No hepatosplenomegaly. Back: No costovertebral angle (CVA) or lumbosacral tenderness. Extremities: No rashes. No clubbing, cyanosis or edema. Right arm is significantly swollen, tender to touch. There is an area of erythema around the deltoid measuring about 10 x 10 cm, purplish erythema, tender to touch medially in the right arm area. Right adjacent to the axilla, there is another area that measures about 5 cm with also a circular pattern, pinkish discoloration. Fingertips are warm, well-perfused. There is significant edema involving the fingers all the way to the shoulder. Patient is not able to elevate his arm or abduct. When passes abduction, it does not seem to be very painful for him. There is no palpable fluctuance. IMPRESSION: This is a 36-year-old gentleman, previously healthy except for a major psychiatric disorder, multiple admissions, most recently in May of suicidal ideation and previously in April admitted to [facility] for electroconvulsive therapy, who is admitted in early July with Klebsiella pneumonia multifocal involving the right upper lobe and right lower lobe associated with a myonecrosis of the right arm. The patient has rhabdomyolysis with acute renal failure. He did not have a fever but white count was elevated, CRP was elevated. He responded to broad-spectrum antibiotic that he received for about 4 days and then left against medical advice His primary care gave him keflex 1000 mg by mouth four times a day, came back with worsening edema and difficulty with range of motion. His systemic symptoms definitely have improved, including his white count, his inflammation marker and CPK and LFTs abnormality have improved. HIV, hepatitis profile were all done and were negative. The patient states that he has never used IV drugs. I suspect the patient had Klebsiella pneumonia with probable transient bacteremia, which has led to a minor necrosis of the right arm with secondary edema and possibly frozen shoulder or impingement causing this significant weakness and difficulty with range of motion of the right shoulder. Klebsiella pneumonia has been reported to cause crepitant myonecrosis, although rarely, more frequently seen in diabetics, alcoholics or severe chronic obstructive pulmonary disease (COPD) patient or immunocompromised, which does not typically fit the picture. PLAN: Will obtain HbA1c immunoglobulin level to rule out common variable immunodeficiency. Followup chest x-ray PA and lateral was ordered. The patient will have interventional radiology, Dr. Paz, do an ultrasound-guided aspiration of the right deltoid myonecrosis and fluid and tissue for aerobic, anaerobic culture, AFB culture and pathology. Patient never had any evidence of MRSA. You would have expected to see positive blood cultures if it was Staphylococcus aureus and therefore, vancomycin and Zosyn will be discontinued. He definitely has improved on ceftaroline and followed by [facility] as an outpatient. At this point, will continue with IV Zosyn until results of cultures. The case has been discussed with Dr. Dainelle Martin and Dr. Zion Krueger and Dr. Kasi Paz, who all agree with the plan and the patient agrees with the procedure. GRE[facility] LAKES HEALTH SYSTEMGanesh
[2016-08-08] MEDS ORDERED: LIDOCAINE 1% MDV 20ML VIAL As Ordered ONE (11:37)
[2016-08-08 14:00] VITALS: BP 126/74
[2016-08-08] MEDS: HEPARIN SOD (PORCINE) 5000 UNITS/ML VIAL SC SCH ×2 (15:32→20:26)
--- NOTE | 2016-08-08 16:29 | REP ---
ULTRASOUND GUIDED RIGHT SHOULDER MUSCLE BIOPSY: The procedure was performed under the direct supervision of Dr. Paz. The patient has a history of necrotizing fasciitis/myonecrosis pattern in the periarticular musculature and soft tissues about the right shoulder seen on a previous MRI dated 07/28/2016. The risks and benefits of the procedure were explained to the patient and informed consent was obtained. The area of necrotizing fasciitis/myonecrosis was localized using ultrasound guidance. The skin was prepped and draped in a sterile fashion. 1% Xylocaine was used as a local anesthetic. Using ultrasound guidance a 19/20-gauge coaxial needle biopsy system was inserted and then advanced into the muscle. 5 core biopsy samples and 1 mL of aspirate was obtained and sent to the lab. The patient tolerated the procedure well and there were no immediate complications. Reviewed by SIL Rios 08/09/2016 02:08 PEdited and Signed by Ulysses Paz MD 08/09/2016 05:02 P
[2016-08-08] MEDS: IBUPROFEN 600 MG TAB PO SCH ×2 (17:23→20:24)
--- NOTE | 2016-08-08 19:05 | IPNPDOC ---
Subjective Date Seen The patient was seen on 08/08/16. Subjective Chief Complaint/HPI The patient is a 36-year-old male admitted with a reason for visit of Cellulitis. Events since last encounter pt seen and examined doing well, Objective Physical Examination General Exam: Positive: No Acute Distress Eye Exam: Positive: Conjunctiva & lids normal, PERRLA Chest Exam: Positive: Clear to auscultation, Normal air movement Heart Exam: Positive: Normal S1, Normal S2, Rate Normal, Regular Rhythm, Negative: Murmurs, Rubs Abdomen Exam: Positive: Normal bowel sounds, Soft, Negative: Hepatospenomegaly, Tenderness Extremity Exam: Positive: Swelling, Tenderness (right arm) Assessment /Plan Problems (1) Myonecrosis Status: Acute Problem Text: per MRI pt has myonecrosis of the right shoulder CT biospy scheduled today OT/PT pain control (2) Cellulitis of arm, right Status: Acute Problem Text: * continue antibiotics * ortho evaluated him last night * no procedures at this time (3) Rhabdomyolysis Status: Acute Response to Treatment: Improving Problem Text: * CK is trending down * kidney function stable (4) Cellulitis Status: Acute Response to Treatment: Improving Problem Text: * pt is on zosyn and clindamycin ID following (5) Hypothyroidism Status: Acute (6) HLD (hyperlipidemia) Status: Chronic Response to Treatment: Stable (7) ADHD (attention deficit hyperactivity disorder) Status: Chronic Response to Treatment: Stable (8) Anxiety Status: Chronic Response to Treatment: Stable (9) Depression Status: Chronic Response to Treatment: Stable (10) Substance abuse Status: Chronic Plan/VTE VTE Prophylaxis Ordered?: Yes VS, I&O, 24H, [facility] Vital Signs/I&O Vital Signs Date Time Temp Pulse Resp B/P Pulse Ox O2 Delivery O2 Flow Rate FiO2 08/08/16 17:24 18 08/08/16 08:43 62 120/73 08/08/16 07:30 Room Air 08/08/16 07:30 95 08/08/16 06:00 96.8 08/07/16 06:06 0.0 I&O- Last 24 Hours up to 6 AM 08/08/16 06:00 Intake Total 2550 ml Output Total 2300 ml Balance 250 ml Laboratory Data 24H LABS Laboratory Tests 2 08/08/16 07:23: Blood Urea Nitrogen 13, Creatinine 1.00, Sodium Level 140, Potassium Level 3.5, Chloride Level 104, Carbon Dioxide Level 29, Calcium Level 8.5, Aspartate Amino Transf (AST/SGOT) 81H, Alanine Aminotransferase (ALT/SGPT) 97H, Alkaline Phosphatase 51, Total Bilirubin 0.4, Total Protein 6.2L, Albumin 2.9L, Albumin/ Globulin Ratio 0.88L, Anion Gap 7L, C-Reactive Protein, Quantitative 0.79H, Erythrocyte Sedimentation Rate 21H, Estimated Mean Plasma Glucose 103, Glomerular Filtration Rate > 60.0, Hemoglobin A1c 5.2, Immunoglobulin A 484.0H, Immunoglobulin G 841, Immunoglobulin M 31.4L, Vancomycin Level Trough 7.0L CBC/BMP Laboratory Tests 08/08/16 07:23 Calcium Level 8.5, Aspartate Amino Transf (AST/SGOT) 81 H, Alanine Aminotransferase (ALT/SGPT) 97 H, Alkaline Phosphatase 51, Total Bilirubin 0.4, Total Protein 6.2 L, Albumin 2.9 L, Red Blood Count 3.99 L, Mean Corpuscular Volume 93.3, Mean Corpuscular Hemoglobin 32.9, Mean Corpuscular Hemoglobin Concent 35.3, Red Cell Distribution Width 13.2 Microbiology Microbiology 08/04/16 Blood Culture - Preliminary, Resulted No Growth after 72 hours. All specime... 08/04/16 Blood Culture - Preliminary, Resulted No Growth after 72 hours. All specime... 08/08/16 Gram Stain - Final, Resulted 08/08/16 Abscess Culture, Resulted Pending 08/08/16 Anaerobic Culture, Resulted Pending 08/08/16 Acid Fast Stain, Received Pending 08/08/16 Mycobacterial Culture, Received Pending 08/08/16 Gram Stain - Final, Resulted 08/08/16 Abscess Culture, Resulted Pending 08/06/16 Wound Culture, Received Pending COBY DOWELL DO Aug 08, 2016 19:04
--- NOTE | 2016-08-08 20:11 | IPN ---
DATE: 08/08/2016 Brad seems to doing a little better today. Swelling in right arm has improved. He is able to move his fingers. He denies any fever, chills, nausea, vomiting, or diarrhea. His appetite is fair. He went to interventional radiology today. Dr. Paz and Iker were able to aspirate some blood and send a tissue for biopsy for to pathology. Labs were sent for aerobic and anaerobic culture as well as acid-fast bacillus (AFB) cultures. LABORATORY DATA: Today, white count is 6, hemoglobin 13.1, hematocrit 37.3, platelets 251. ESR 21. Sodium 140, potassium 3.5, chloride 104, bicarbonate 29, BUN 13, creatinine 1, glucose 103. HbA1c was 5.2. Calcium 8.5. AST 81, ALT 97. CRP is down to 0.79. Albumin 2.9. IgG is 841, IGA 484, IgM 31.4. Hepatitis A, B and C were negative. Chest x-ray posterior-anterior (PA) and lateral done today: Near-complete resolution of right upper lobe and right lower lobe infiltrates. PHYSICAL EXAMINATION: Temperature is 96.8. He has been afebrile throughout this admission. Pulse 62, blood pressure 120/73, respirations 18, oxygen saturation 95% on room air. HEART: Normal S1, S2. No murmurs. LUNGS: Clear. No wheezes or rhonchi. ABDOMEN: Soft, nontender. No hepatosplenomegaly. EXTREMITIES: No clubbing, cyanosis, or edema of the legs. Right arm: Significant swelling, edematous right arm, mostly in forearm as well as fingers. He is able to move finger. He has decreased sensation, but he definitely has feeling. He has three areas of erythema along the biceps, deltoid, and medial arm, all measuring between 7-12 cm. The right biceps area is scabbed over. The right medial area has some serous discharge with erythema, and the right deltoid was the area where the biopsy was done and aspiration of the muscle. IMPRESSION: 1. Klebsiella pneumoniae, right upper lobe and right lower lobe with resolution. The patient currently asymptomatic. The patient denies any alcohol abuse in 5 years and is not diabetic, so this is somewhat unusual for immunocompetent host to have Klebsiella pneumoniae. 2. Pyomyositis/rhabdomyolysis, possibly related to Klebsiella infection as well. This has been reported and on literature as a cause of myositis, although rarely and more calmly in diabetics, immunocompromised hemodialysis or hemodialysis patient. We have done as for a literature search regarding cases on myositis from Klebsiella. 3. History of major depression, post traumatic stress disorder (PTSD), doing much better, currently on trazodone, alprazolam, Adderall. PLAN: Continue with Zosyn. Will followup on result of biopsy and culture. The patient would like to have some ibuprofen to help with right shoulder pain, which has been prescribed. Case has been reviewed with Dr. Paz.
[2016-08-08] MEDS ORDERED: traZODone 100 MG TAB PO SCH (21:00)
[2016-08-08 22:00] VITALS: BP 135/77
[2016-08-09] MEDS: MORPHINE 2 MG/ML 1ML SYRINGE IV PRN (00:43)
[2016-08-09] MEDS: PIPERACILLIN/TAZOBACTAM SOD 3.375 GM in D5W MINI-BAG PLUS 50 ML IV SCH ×3 (01:12→13:23)
[2016-08-09 06:00] VITALS: BP 131/78
[2016-08-09] MEDS: HEPARIN SOD (PORCINE) 5000 UNITS/ML VIAL SC SCH ×2 (06:07→13:23)
[2016-08-09] MEDS: LEVOTHYROXINE 0.112 MG TAB (112 MCG) PO SCH (06:08)
[2016-08-09] MEDS: IBUPROFEN 600 MG TAB PO SCH (06:08)
[2016-08-09] MEDS: oxyCODONE 20 MG CR TAB PO SCH (08:55)
[2016-08-09 08:56] VITALS: BP 131/78
[2016-08-09] MEDS: PROPRANOLOL 60 MG LA CAP PO SCH (08:56)
[2016-08-09] MEDS: ALPRAZolam 0.5 MG TAB PO SCH ×2 (08:56→15:22)
[2016-08-09] MEDS: ADDERALL 5 MG TAB PO SCH ×3 (08:57→17:17)
[2016-08-09] MEDS: DOCUSATE SODIUM 100 MG CAP PO SCH (08:57)
[2016-08-09] MEDS: PARoxetine 20 MG TAB PO SCH (08:57)
[2016-08-09] MEDS: PANTOPRAZOLE 40MG TAB (PROTONIX) PO SCH (08:57)
[2016-08-09] MEDS ORDERED: MIRALAX *UNIT DOSE* 17GM PACKET PO SCH (09:00)
[2016-08-09 09:37] LABS: MEAN CORPUSCULAR HEMOGLOBIN 32.7 pg (27.0-33.0); MEAN CORPUSCULAR HGB CONC 34.2 g/dl (32.0-36.5); MEAN CORPUSCULAR VOLUME 95.4 fl (80.0-96.0); RED CELL DISTRIBUTION WIDTH 13.2 % (11.5-14.5); WHITE BLOOD COUNT 5.3 K/mm3 (4.0-10.0)
[2016-08-09 09:44] LABS: ALBUMIN/GLOBULIN RATIO 0.79 (1.00-1.93); ALKALINE PHOSPHATASE 64 U/L (45-117); ALT/SGPT 103 U/L (12-78); ANION GAP 8 MEQ/L (8-16); AST/SGOT 77 U/L (15-37); BILIRUBIN,TOTAL 0.3 MG/DL (0.2-1.0); BLOOD UREA NITROGEN 12 MG/DL (7-18); CALCIUM LEVEL 8.3 MG/DL (8.5-10.1); CARBON DIOXIDE LEVEL 29 MEQ/L (21-32); CHLORIDE LEVEL 103 MEQ/L (98-107); CREATININE FOR GFR 0.94 MG/DL (0.70-1.30); GLOMERULAR FILTRATION RATE > 60.0 (>60); GLUCOSE, FASTING 80 MG/DL (70-105); POTASSIUM SERUM 3.5 MEQ/L (3.5-5.1); SODIUM LEVEL 140 MEQ/L (136-145); TOTAL PROTEIN 6.8 GM/DL (6.4-8.2)
[2016-08-09] MEDS ORDERED: FUROSEMIDE 100 MG/10 ML VIAL (J1940) IV ONE (10:15)
[2016-08-09] MEDS ORDERED: BISACODYL 10 MG SUPP PR PRN (10:15)
[2016-08-09] MEDS ORDERED: IBUPROFEN 600 MG TAB PO PRN (10:40)
--- NOTE | 2016-08-09 10:48 | IPNPDOC ---
Subjective Date Seen The patient was seen on 08/09/16. Subjective Chief Complaint/HPI The patient is a 36-year-old male admitted with a reason for visit of Cellulitis. Events since last encounter no new complaints except pain in right shoulder, does not want to move the shoulder, no fever or chills, no chest pain or sob , no abdominal pain nausea or vomiting. Objective Physical Examination General Exam: Positive: No Acute Distress Eye Exam: Positive: Conjunctiva & lids normal, PERRLA Chest Exam: Positive: Clear to auscultation, Normal air movement Heart Exam: Positive: Normal S1, Normal S2, Rate Normal, Regular Rhythm, Negative: Murmurs, Rubs Abdomen Exam: Positive: Normal bowel sounds, Soft, Negative: Hepatospenomegaly, Tenderness Extremity Exam: Positive: Swelling, Tenderness (right arm) Assessment /Plan Problems (1) Myonecrosis Status: Acute Problem Text: per MRI pt has myonecrosis of the right shoulder CT biospy done , gram statin negative , cultures pending. OT/PT pain control with oxycontin 15 bid and motrin will dc morphine says its causing problem with his mood and depression. (2) Cellulitis of arm, right Status: Acute Problem Text: * continue antibiotics on zosyn at present. * ortho evaluated him last night * no procedures at this time (3) Rhabdomyolysis Status: Acute Response to Treatment: Improving Problem Text: * CK is trending down * kidney function stable (4) Hypothyroidism Status: Acute (5) HLD (hyperlipidemia) Status: Chronic Response to Treatment: Stable (6) ADHD (attention deficit hyperactivity disorder) Status: Chronic Response to Treatment: Stable (7) Anxiety Status: Chronic Response to Treatment: Stable (8) Depression Status: Chronic Response to Treatment: Stable (9) Substance abuse Status: Chronic Plan/VTE VTE Prophylaxis Ordered?: Yes VS, I&O, 24H, Fishbone Vital Signs/I&O Vital Signs Date Time Temp Pulse Resp B/P Pulse Ox O2 Delivery O2 Flow Rate FiO2 08/09/16 01:01 16 08/08/16 22:00 97.7 73 135/77 98 Room Air 08/07/16 06:06 0.0 I&O- Last 24 Hours up to 6 AM 08/09/16 06:00 Intake Total 1470 ml Output Total 950 ml Balance 520 ml Laboratory Data 24H LABS Laboratory Tests 2 08/08/16 07:23: Blood Urea Nitrogen 13, Creatinine 1.00, Sodium Level 140, Potassium Level 3.5, Chloride Level 104, Carbon Dioxide Level 29, Calcium Level 8.5, Aspartate Amino Transf (AST/SGOT) 81H, Alanine Aminotransferase (ALT/SGPT) 97H, Alkaline Phosphatase 51, Total Bilirubin 0.4, Total Protein 6.2L, Albumin 2.9L, Albumin/ Globulin Ratio 0.88L, Anion Gap 7L, C-Reactive Protein, Quantitative 0.79H, Erythrocyte Sedimentation Rate 21H, Estimated Mean Plasma Glucose 103, Glomerular Filtration Rate > 60.0, Hemoglobin A1c 5.2, Immunoglobulin A 484.0H, Immunoglobulin G 841, Immunoglobulin M 31.4L, Vancomycin Level Trough 7.0L CBC/BMP Laboratory Tests 08/08/16 07:23 Calcium Level 8.5, Aspartate Amino Transf (AST/SGOT) 81 H, Alanine Aminotransferase (ALT/SGPT) 97 H, Alkaline Phosphatase 51, Total Bilirubin 0.4, Total Protein 6.2 L, Albumin 2.9 L, Red Blood Count 3.99 L, Mean Corpuscular Volume 93.3, Mean Corpuscular Hemoglobin 32.9, Mean Corpuscular Hemoglobin Concent 35.3, Red Cell Distribution Width 13.2 Microbiology Microbiology 08/04/16 Blood Culture - Preliminary, Resulted No Growth after 72 hours. All specime... 08/04/16 Blood Culture - Preliminary, Resulted No Growth after 72 hours. All specime... 08/08/16 Gram Stain - Final, Resulted 08/08/16 Abscess Culture, Resulted Pending 08/08/16 Anaerobic Culture, Resulted Pending 08/08/16 Acid Fast Stain, Received Pending 08/08/16 Mycobacterial Culture, Received Pending 08/08/16 Gram Stain - Final, Resulted 08/08/16 Abscess Culture, Resulted Pending 08/06/16 Wound Culture - Final, Complete Enterococcus Faecalis Staphylococcus Sp Coag Neg MELISSA GARDNER MD Aug 09, 2016 06:02
[2016-08-09] MEDS ORDERED: IBUP60TA PO (16:19)
[2016-08-09] MEDS ORDERED: PAXI20TA3 PO (16:19)
[2016-08-09] MEDS ORDERED: AUGM875T27 PO (16:19)
[2016-08-09] MEDS ORDERED: oxyCODONE 15 MG CR TAB PO SCH (21:00)
[2016-08-09] MEDS ORDERED: SENOKOT S TAB PO SCH (21:00)
--- NOTE | 2016-08-10 11:02 | IPN ---
DATE: 08/09/2016 ATTENDING PHYSICIAN: Dr. Carlos Olivas HISTORY OF PRESENT ILLNESS: This is a 36-year-old male seen today at bedside. He was sitting comfortably on the side of his bed. He states today that he is feeling better and that he enjoyed working with physical therapy (PT) and occupational therapy (OT) today and yesterday. However, he is unhappy with being inside a hospital and he is anxious to go home. He denies any fevers or chills and states that he is getting more movement in his hands with less swelling. OBJECTIVE: Vital Signs: Temperature 96.9, pulse is 66, respirations 14, blood pressure is 131/78, and oxygen saturation 98% on room air. General: The patient is calm and cooperative. He does not appear to be in any acute distress. Heart: Normal S1, S2. No murmurs appreciated. Lungs: Clear to auscultation bilaterally. No wheezes or rhonchi. Abdomen: Is soft, nontender, nondistended. Normoactive bowel sounds are heard throughout. Extremities: No clubbing, cyanosis or edema in the legs. Right Arm: There is significant swelling and edema in his right arm extending from his forearm to his fingers. He has good improved movements in his right hand compared to yesterday. Slight decrease in sensation. He has three areas of erythema along his biceps, deltoid, and medial arm measuring 7-12 cm in diameter. There is a large scab over his right biceps. The right medial area has some serous discharge with erythema as well as the right deltoid where the biopsy was performed. LABORATORY FINDINGS: WBC 5.3, hemoglobin 12.9, hematocrit 37.8 and platelets 260. ESR 21. Sodium is 140, potassium 3.5, chloride 103, carbon dioxide 29, BUN 12, creatinine 0.94, glucose is 80. Right arm wound culture was positive for Enterococcus faecalis and coag-negative Staph, unlikely because of his symptoms. Pathology report is still pending. ASSESSMENT/PLAN: This is a 36-year-old male with prior myositis and rhabdomyolysis, Klebsiella pneumonia infection resolving, and history of multiple psychiatric disorders. 1. Pyomyositis/rhabdomyolysis. We are awaiting the results from pathology of the fine-needle aspiration (FNA) biopsy completed on 08/07/2016. Given the patient's clinical improvement and the current wound culture results, we are starting him on Augmentin 875/125 mg twice a day. He will followup with infectious disease as an outpatient in 1 week. From an infectious disease standpoint, he can be discharged home, and that will be discussed with his primary team. 2. Klebsiella pneumonia of the right upper lobe and right lower lobe. Appears to be resolving. Currently asymptomatic. His last x-ray from 08/08/2016 showed that this pneumonia had completely resolved. 3. The patient has multiple psychiatric disorders, including major depression and post traumatic stress disorder. Reports that he is doing better. He is currently on trazodone, alprazolam and Adderall. He does need some refills on his antidepressant before he is discharged. His psychiatric medications are managed currently by his primary care provider. He does not wish to be managed by a psychiatrist at this time. My preceptor for this patient encounter was Dr. Carlos Olivas. The preceptor was physically present in the building during the encounter and was fully available. As needed, all aspects of the patient interview, examination, medical decision making process, and medical care plan development were reviewed and approved by the preceptor. The preceptor is aware and concurs with the plan as stated in the body of this note and will attest to such by his/her cosignature.
[2016-08-11 00:06] LABS: IgG SERUM (part of Subclasses) 891 mg/dL (700-1600); IgG Subclass 1 371 mg/dL (422-1292); IgG Subclass 2 405 mg/dL (117-747); IgG Subclass 3 28 mg/dL (41-129); IgG Subclass 4 44 mg/dL (1-291)
--- NOTE | 2016-08-13 20:36 | DSES ---
DATE OF ADMISSION: 08/05/2016 DATE OF DISCHARGE: 08/09/2016 PRIMARY CARE PROVIDER: Dr. Quispe DISCHARGE DIAGNOSES: 1. Pyomyositis of the muscles around the right shoulder joint. 2. Rhabdomyolysis, resolving. 3. Klebsiella pneumoniae of the right upper lobe and right lower lobe, resolving. 4. Cellulitis of the right arm. 5. Hypothyroidism. 6. Hyperlipidemia. 7. Attention deficit hyperactivity disorder. 8. Depression. 9. Anxiety. 10. History of substance abuse. 11. Post traumatic stress disorder. 12. Panic attacks. DISCHARGE MEDICATIONS: - Augmentin 875 mg by mouth twice a day - ibuprofen 600 mg by mouth every 6 hours as needed pain - paroxetine 40 mg by mouth daily - alprazolam 1 mg by mouth three times a day - Adderall one capsule by mouth three times a day - atorvastatin 20 mg at bedtime - esomeprazole 40 mg - Synthroid 112 mg by mouth in the morning - oxycodone 10 mg by mouth every 8 hours as needed for pain - propranolol 120 mg by mouth daily - Ambien 5 mg at bedtime as needed sleep HOSPITAL COURSE: This is a 36-year-old male who was initially admitted the hospital on July 27 for right upper lobe and right lower lobe Klebsiella pneumoniae. Patient left against medical advice (AMA) without completing the treatment for his pneumonia. At that time he was also noted to have rhabdomyolysis and some swelling of his arm without any pain. Patient left AMA before full workup could be done and completion of treatment. Patient left AMA on July 29. Patient came back on August 05 with massive swelling and pain and inability to move the whole right upper extremity extending from the fingers up to the shoulder with poor sensation, difficulty in moving. Patient was diagnosed with cellulitis and admitted. Patient was started on Zosyn and vancomycin. A CT scan of the upper extremity was done, which was read as myofascitis of the forearm and upper arm and the periarticular regions about the shoulder. No abscess was seen. No soft tissue gas was noted. There was diffuse edematous changes of the whole upper extremity, worsened compared to July 27 study. The lung infiltrates from the previous admission seemed to have cleared. Orthopedics was consulted, and it was felt that the patient did not need any surgical intervention, and they advised to continue antibiotics and continuous monitoring. Patient did start to improve with antibiotics with some decrease in swelling; however, then he started complaining of right shoulder pain and inability to mobilize the shoulder, so he underwent an MRI of the shoulder, which was read as necrotizing fasciitis, myonecrosis pattern in the periarticular musculature and soft tissues about the right shoulder. There was no evidence of osteomyelitis or abscess. Infectious disease was consulted, and it was felt that the patient during his prior admission when he had multifocal Klebsiella pneumoniae involving the right lung, he probably had transient bacteremia, which probably caused feeding in his right shoulder, causing myonecrosis of the muscles around the shoulder and the right arm along with rhabdomyolysis and acute renal failure. During that admission he had left about 4 days of intravenous (IV) broad-spectrum antibiotics. This admission it was felt that the myonecrosis that he had in the right arm, and it was associated with secondary edema and possible frozen shoulder or impingement, causing significant weakness and difficulty in range of motion of the right shoulder. Klebsiella pneumoniae has been reported to cause myonecrosis, though rarely, though most commonly seen in immunocompromised patients. It was felt that the patient at this point did not need any surgical intervention, to be continued on broad-spectrum antibiotics. Patient was continued only Zosyn. Vancomycin was discontinued. Patient responded well to Zosyn, and on the day of discharge his upper extremity swelling was improving. He was able to move it a little more, though still very stiff in the shoulders. His pain had mostly resolved. His vital signs were stable. He was functionally almost at his baseline and so is going to be discharged home in a stable condition. PHYSICAL EXAMINATION: VITAL SIGNS: Temperature 96.9, pulse 64, respiratory rate 16, blood pressure 131/78, pulse oximetry 98% in room air. GENERAL: Patient awake, alert, oriented times three. Lying down in bed in no acute distress. HEENT: Normocephalic, atraumatic. Moist mucous membranes. Anicteric eyes. CHEST: Clear to auscultation. CARDIOVASCULAR: S1, S2, regular. No murmur, rub, or gallop. ABDOMEN: Obese, soft, nontender. Bowel sounds present. EXTREMITIES: Lower extremities: No edema. Upper extremities: Right upper extremity still with edema but no signs of inflammation. LABORATORY DATA: WBC 5.3, hemoglobin 12.9, platelets 260. ESR 21. Sodium 140, potassium 3.5, chloride 103, bicarbonate 29, BUN 12, creatinine 0.9, glucose 80. A1c 5.2. Calcium 8.3. AST 77, ALT 106. CRP 1. DISPOSITION: Patient is discharged home in a stable condition. Patient to followup with primary care provider in 2 weeks. Patient to followup with Dr. Olivas in 1 week. Patient to followup with Dr. Zion Krueger in 1 week. ADDITIONAL DISCHARGE DIAGNOSES: 1. Fatty liver. 2. Joint aspiration. Culture did not have any growth of any organisms. Blood culture was negative after 5 days.
== END 2016-08-09 18:44 | disposition home or self-care (01) | DRG 602 ==
LOC: M ED 21:35 → M ED INP 08-05 00:22 → M MS5PR 08-05 00:52
PROVIDERS: ADMIT Internal Medicine; ATTEND Internal Medicine Nephrology
PROC: 0X9 Anatomical Regions, Upper Extremities, Drainage (ICD-10-PCS; principal; 2016-08-08)
DX: L03.113 Cellulitis of right upper limb (principal); M72.6 Necrotizing fasciitis; A48.0 Gas gangrene; M62.82 Rhabdomyolysis; M60.011 Infective myositis, right shoulder; E03.9 Hypothyroidism, unspecified; I10 Essential (primary) hypertension; F32.9 Major depressive disorder, single episode, unspecified; I80.8 Phlebitis and thrombophlebitis of other sites; F41.0 Panic disorder [episodic paroxysmal anxiety]; F19.10 Other psychoactive substance abuse, uncomplicated; F90.9 Attention-deficit hyperactivity disorder, unspecified type; F43.10 Post-traumatic stress disorder, unspecified; G47.00 Insomnia, unspecified; Z88.8 Allergy status to other drugs, medicaments and biological substances; Z87.891 Personal history of nicotine dependence; Z79.891 Long term (current) use of opiate analgesic; Z79.899 Other long term (current) drug therapy

== ENCOUNTER 2016-09-10 07:17 | Emergency (ER) | payer MEDICARE, MEDICAID ==
[~2016-09-10] VITALS: Ht 172.7 cm; Wt 95.3 kg
[~2016-09-10 07:17] MED LIST changes: +AMPH30CA PO; +AUGM875T27 PO; -COLA100C PO; +COLA100C3 PO; +IBUP60TA PO; +KEFL500C7 PO; +PAXI20TA3 PO; +TRAZ100T4 PO
[2016-09-10] MEDS ORDERED: BUPR15TA PO (07:31)
[2016-09-10] MEDS ORDERED: MORPHINE 4 MG/ML 1ML SYRINGE IV ONE (08:00)
[2016-09-10 08:27] LABS: BASO # 0.1 K/mm3 (0.0-0.2); BASO % 0.9 % (0.0-1.0); EOS # 0.2 K/mm3 (0.0-0.50); EOS % 2.9 % (0.0-3.0); LARGE UNSTAINED CELL # 0.1 K/mm3 (0.0-0.4); LARGE UNSTAINED CELL % 1.6 % (0.0-4.0); LYMPH # 2.5 K/mm3 (1.5-4.5); LYMPH % 35.3 % (24.0-44.0); MEAN CORPUSCULAR HEMOGLOBIN 32.2 pg (27.0-33.0); MEAN CORPUSCULAR HGB CONC 33.9 g/dl (32.0-36.5); MEAN CORPUSCULAR VOLUME 95.1 fl (80.0-96.0); MONO # 0.4 K/mm3 (0.0-0.8); MONO % 5.6 % (0.0-5.0); NEUTROPHILS # 3.6 K/mm3 (1.8-7.7); NEUTROPHILS % 53.8 % (36.0-66.0); PLATELET COUNT, AUTOMATED 227 k/mm3 (150-450); RED CELL DISTRIBUTION WIDTH 13.3 % (11.5-14.5); WHITE BLOOD COUNT 6.8 K/mm3 (4.0-10.0)
[2016-09-10 08:50] VITALS: BP 126/80
[2016-09-10 08:51] LABS: ALBUMIN 3.7 GM/DL (3.2-5.2); ALBUMIN/GLOBULIN RATIO 0.97 (1.00-1.93); ALKALINE PHOSPHATASE 81 U/L (45-117); ALT/SGPT 66 U/L (12-78); ANION GAP 6 MEQ/L (8-16); AST/SGOT 41 U/L (15-37); BILIRUBIN,DIRECT < 0.1 MG/DL (0.0-0.2); BILIRUBIN,TOTAL 0.3 MG/DL (0.2-1.0); BLOOD UREA NITROGEN 25 MG/DL (7-18); CALCIUM LEVEL 8.6 MG/DL (8.5-10.1); CARBON DIOXIDE LEVEL 30 MEQ/L (21-32); CHLORIDE LEVEL 104 MEQ/L (98-107); CREATININE FOR GFR 0.76 MG/DL (0.70-1.30); GLOMERULAR FILTRATION RATE > 60.0 (>60); GLUCOSE, FASTING 96 MG/DL (70-105); POTASSIUM SERUM 4.3 MEQ/L (3.5-5.1); SODIUM LEVEL 140 MEQ/L (136-145); TOTAL PROTEIN 7.5 GM/DL (6.4-8.2)
--- NOTE | 2016-09-10 08:54 | REP ---
Right upper extremity deep vein duplex ultrasound: Comparison is 08/27/2016. The deep veins demonstrate normal compression, normal Doppler color flow and normal Doppler waveforms from the brachial veins to the subclavian vein. Impression: No evidence of deep vein thrombus in the right upper extremity. Signed by Yahir Hardy MD 09/10/2016 08:46 A
[2016-09-10 09:01] LABS: ERYTHROCYTE SEDIMENTATION RATE 9 mm/hr (0-15)
[2016-09-10] MEDS ORDERED: NS 1,000 ML IV ONE (09:45)
[2016-09-10] MEDS ORDERED: BUPR150T3 PO (16:07)
== END 2016-09-10 11:35 | disposition home or self-care (01) ==
LOC: M ED 08:08
DX: G56.91 Unspecified mononeuropathy of right upper limb (principal); R53.1 Weakness; R22.31 Localized swelling, mass and lump, right upper limb; I10 Essential (primary) hypertension; F90.9 Attention-deficit hyperactivity disorder, unspecified type; E78.5 Hyperlipidemia, unspecified; E07.9 Disorder of thyroid, unspecified; Z79.899 Other long term (current) drug therapy; Z88.8 Allergy status to other drugs, medicaments and biological substances
CPT/HCPCS: 80048; 80076; 82550; 85025; 85652; 86140; 87040; 93971; 96361; 96374; 99283; G0463

== ENCOUNTER 2016-09-15 03:19 | Emergency (ER) | payer MEDICAID, MEDICARE ==
[~2016-09-15] VITALS: Ht 172.7 cm; Wt 97.5 kg
[~2016-09-15 03:19] MED LIST changes: +BUPR150T3 PO; +BUPR15TA PO
[2016-09-15 03:44] VITALS: BP 166/98
[2016-09-15] MEDS ORDERED: RITA20TA PO (03:48)
[2016-09-15] MEDS ORDERED: OXYC20TA2 PO (03:49)
[2016-09-15] MEDS ORDERED: PRIL20CA9 PO (03:50)
[2016-09-15] MEDS ORDERED: KLON1TAB PO (03:51)
[2016-09-15] MEDS ORDERED: PROPRANOLOL (03:53)
[2016-09-15] MEDS ORDERED: COLA100C3 PO (03:54)
[2016-09-15] MEDS ORDERED: LIPI20TA PO (03:54)
[2016-09-15] MEDS ORDERED: CLIN1PAD EX (03:55)
== END 2016-09-15 05:31 | disposition left against medical advice (07) ==
LOC: M ED 05:03
DX: M79.629 Pain in unspecified upper arm (principal); Z53.21 Procedure and treatment not carried out due to patient leaving prior to being seen by health care provider

== ENCOUNTER 2016-09-26 13:13 | Inpatient (IN) | payer MEDICAID, MEDICARE ==
[~2016-09-26] VITALS: Ht 172.7 cm; Wt 105.3 kg
[~2016-09-26 13:13] MED LIST changes: +CLIN1PAD EX; +KLON1TAB PO; +LIPI20TA PO; +OXYC20TA2 PO; +PRIL20CA9 PO; +PROPRANOLOL; +RITA20TA PO
[2016-09-26 15:18] LABS: MEAN CORPUSCULAR HGB CONC 34.2 g/dl (32.0-36.5); MEAN CORPUSCULAR VOLUME 93.6 fl (80.0-96.0); WHITE BLOOD COUNT 8.6 K/mm3 (4.0-10.0)
[2016-09-26 15:40] LABS: METHADONE URINE NEGATIVE (NEGATIVE)
[2016-09-26] MEDS ORDERED: MORPHINE 4 MG/ML 1ML SYRINGE IV ONE (15:45)
[2016-09-26 15:48] LABS: ALBUMIN 3.6 GM/DL (3.2-5.2); ALBUMIN/GLOBULIN RATIO 0.88 (1.00-1.93); ALKALINE PHOSPHATASE 70 U/L (45-117); ALT/SGPT 35 U/L (12-78); ANION GAP 12 MEQ/L (8-16); AST/SGOT 21 U/L (15-37); BILIRUBIN,DIRECT 0.2 MG/DL (0.0-0.2); BILIRUBIN,TOTAL 0.7 MG/DL (0.2-1.0); BLOOD UREA NITROGEN 14 MG/DL (7-18); CALCIUM LEVEL 9.4 MG/DL (8.5-10.1); CARBON DIOXIDE LEVEL 25 MEQ/L (21-32); CHLORIDE LEVEL 101 MEQ/L (98-107); CREATININE FOR GFR 0.65 MG/DL (0.70-1.30); GLOMERULAR FILTRATION RATE > 60.0 (>60); GLUCOSE, FASTING 81 MG/DL (70-105); POTASSIUM SERUM 3.9 MEQ/L (3.5-5.1); SODIUM LEVEL 138 MEQ/L (136-145); TOTAL PROTEIN 7.7 GM/DL (6.4-8.2)
--- NOTE | 2016-09-26 17:05 | REP ---
Right upper extremity duplex Doppler venous ultrasound. Real time compression and duplex Doppler evaluation of the right upper extremity deep venous system is performed. The right subclavian, jugular, axillary, brachial, basilic and cephalic veins are fully compressible where accessible with transducer pressure, and demonstrate no intraluminal thrombus and normal venous waveforms. There is no evidence of deep venous thrombosis. Impression: No evidence of deep venous thrombosis of the right upper extremity deep vein system. Signed by Yahir Linda MD 09/26/2016 04:56 P
--- NOTE | 2016-09-26 17:20 | REP ---
CHEST, TWO VIEWS: REASON: Dyspnea. COMPARISON: 08/08/2016. Patient also has a prior history of right upper lobe pneumonia. FINDINGS: The superior mediastinal structures are midline. The cardiac silhouette is unremarkable in size, shape, and position. The diaphragmatic surfaces of the lungs are regular, and the costophrenic angles are clear. The pulmonary marinelli are clear. The imaged osseous structures are intact. IMPRESSION: There is no acute cardiopulmonary disease. Signed by Cain Gutierrez DO 09/27/2016 01:49 P
[2016-09-26] MEDS ORDERED: GABA800T PO (18:55)
[2016-09-26] MEDS ORDERED: BUPR150T3 PO (18:55)
[2016-09-26] MEDS ORDERED: LEVO100T5 PO (18:55)
[2016-09-26] MEDS ORDERED: MAALOX 30 ML SUSP *UDC PO PRN (19:00)
[2016-09-26] MEDS ORDERED: MOM 30ML SUSPENSION UDC PO PRN (19:00)
[2016-09-26] MEDS ORDERED: traZODone 50 MG TAB PO PRN (19:00)
[2016-09-26 20:45] VITALS: BP 142/92
[2016-09-26] MEDS ORDERED: traZODone 50 MG TAB PO ONE (23:15)
[2016-09-26] MEDS ORDERED: traZODone 25MG PER 1/2 TABLET PO PRN (23:30)
[2016-09-27 06:40] VITALS: BP 155/69
[2016-09-27] MEDS ORDERED: SERTRALINE HCL 50 MG TAB PO SCH (09:00)
[2016-09-27] MEDS ORDERED: **PENDING PPD ENTRY XX SCH (09:00)
[2016-09-27] MEDS: buPROPion **XL** TABLET 150MG (WELLBUTRIN XL) PO SCH (09:06)
[2016-09-27] MEDS: PARoxetine 20 MG TAB PO SCH (09:06)
[2016-09-27] MEDS ORDERED: TUBERCULIN PPD 5 UNITS/0.1 ML ID SCH (10:00)
--- NOTE | 2016-09-27 11:39 | HPEPDOC ---
[facility] History & Physical History and Physical DATE OF ADMISSION: September 26, 2016 at 18:51 LEGAL STATUS AT ADMISSION: 9.39 CHIEF COMPLAINT: "I'm in pain. I can't live on my own". HISTORY OF THE PRESENT ILLNESS: Patient is a 36-year-old male, who returns after being discharged on 09/09/16. Pt presents with SI of using a gun to kill himself. He states he cannot manage on his own. His apartment "is a wreck". He is not showering. He is laying in bed. [place] he needs it to organize his thoughts but also volunteering that he abuses it. The PCP would not prescribe controlled substances for pain so [place], along with klonopin 1 mg tid. He basically sabotaged the discharge plan. He says he has been caring for his wound and "doing every thing I should to take care of it". Wound to right deltoid appears infected. He was on clindymiocin as an outpatient but it was stopped. He is not reliable in reporting when but stated the doctor said it was no longer necessary. He has not been seen by Ortho but that appt is pending. He has not been getting PT since he has not been to Ortho yet. He did receive PT on the unit so he could do exercises on his own until services were provided. Pt had a Welding Machine Assembler that he lost touch of. He failed to keep appts with her as arranged. All he wants now is pain medication and was not cooperative to answering questions. PSYCHIATRIC REVIEW OF SYSTEMS: Affective: uncooperative Anxiety: mild Trauma:none. Psychosis: none Personally: med seeking PAST PSYCHIATRIC HISTORY: Prior Psychiatric Disorder: just left our facility on 09/09/16. Numerous admissions here. This is about the 4th this year. Outpatient Treatment: non complaint, never presented to [facility] addiction treatment center as agreed Suicidal/Self injurious: no h/o self-harm Psychotropic Medication History: abuses prescriptions medications - mostly controlled substances such as stimulants, opiates and benzodiazepines, doctor shops, ALLERGIES: Please see below. FAMILY PSYCHIATRIC HISTORY: father schizophrenia, siblings schizophrenia SOCIAL HISTORY: Early Relations/development: parents when he was 7 yo- he was treated for 30 days at [facility] for depression at that time. Sibling order: middle child, one older brother and 1 younger sister Paternal relationships: good with mother, less good with father, little contact with siblings. Education: some college Occupational: none Legal: none Martial: single Economic: disability check Supports: mother, hospice case manager, AA when he attends. Abuse/trauma: na SUBSTANCE ABUSE HISTORY: toxicology positive for cannabis, BNZ, and opiates, denies use of alcohol, former h/o alcohol abuse PAST MEDICAL/SURGICAL HISTORY: 1. Hyperlipidemia 2. hypothyroid 3. Chronic Pain 4. Allergic rhinitis 5. Hypertension 6. RUE pyomyositis/rhabdomyolsis/cellulitis VITAL SIGNS: Temperature 98.2, pulse 77 respiratory rate 16, blood pressure 155/ 69 pulse oximetry 100% on room air. MENTAL STATUS EXAMINATION: General appearance: Patient is a 36-year old male, who is unshaven, appears disshelved and dirty, poor attitude, in pain and marginally cooperative Speech: spontaneous Thought processes: goal directed Thought content: "I want my pain meds. I can't do anything without them". Abstract reasoning and computation: fair Description of associations: good Description of abnormal or psychotic thoughts: continues to endorse thoughts of suicide without plan or intent. Agrees to speak to staff if he believes he may act on these thoughts. Judgment: poor Insight: good Orientation: well oriented in all spheres. Recent and remote memory: intact Attention span and concentration: poor Fund of knowledge: full Mood: "I'm in pain" Affect: congruent. DIAGNOSES: 1. Major depressive disorder, moderate, recurrent, without psychotic features. 2. Sedative, hypnotic and anxiolytic dependence 3. ADD by history 4. PTSD by history 5. Agoraphobia by history. ASSESSMENT: Pt left the hospital very stable, in good spirits and future oriented. Once he could not get oxycodone prescribed he started to seek drugs and [place] many of the controlled substances that he wanted for pain, anxiety and ADHD. He admits to abusing the Ritalin. He is addicted to the opiates and likely the benzo's too but he is not prescribed bnz on this admission. We will see if he has withdrawal and if that needs to be addressed it will be managed. Will restart Wellbutrin XL and Paxil 40 mg. May use trazodone 100 mg at hs. Resident ordered medical meds for him including pain meds at telegraphic typewriter installer's request. Wound consult and culture ordered. Pt would like to be referred to [facility]. Pt will accept a transfer to [facility], process will be started for [facility]. PROBLEM LIST: 1. suicidal thinking 2. depression 3. substance abuse INITIAL TREATMENT PLAN: 1. Patient was admitted on a 9.39 2. Complete history was obtained. 3. With patients permission, family will be contacted and database will be expanded. 4. Patients medication regimen will be reviewed and changed accordingly. 5. Patient will be provided with protected environment. 6. Patient will be treated with individual, group, and milieu therapies. 7. Patient will receive supportive psych-education. 8. Discharge planning will commence immediately. 9. Outpatient follow-up treatment will be strongly recommended. 10. The initial treatment plan will focus initially on: * Depression. * Risk for suicide. * Substance abuse. ESTIMATED LENGTH OF STAY: 5-7 DAYS. TIME SPENT COUNSELING AND COORDINATING INITIAL CARE: 60 minutes. Laboratory Data [facility] Labs Laboratory Tests 2 09/26/16 14:54: Anion Gap 12, Glomerular Filtration Rate > 60.0, Calcium Level 9.4, Aspartate Amino Transf (AST/SGOT) 21, Alanine Aminotransferase (ALT/SGPT) 35, Alkaline Phosphatase 70, Total Bilirubin 0.7, Direct Bilirubin 0.2, Total Creatine Kinase 274, Total Protein 7.7, Albumin 3.6, Albumin/Globulin Ratio 0.88L, Thyroid Stimulating Hormone (TSH) 0.092L, Salicylates Level < 1.7L, Urine Amphetamines Screen NEGATIVE, Urine Benzodiazepines Screen POSITIVEH, Urine Opiates Screen POSITIVEH, Urine Methadone Screen NEGATIVE, Acetaminophen Level < 2.0L, Urine Barbiturates Screen NEGATIVE, Urine Phencyclidine Screen NEGATIVE , Urine Cocaine Metabolite Screen NEGATIVE, Urine Cannabinoids Screen POSITIVEH , Ethyl Alcohol Level < 0.003 CBC/BMP Laboratory Tests 09/26/16 14:54 Red Blood Count 4.61, Mean Corpuscular Volume 93.6, Mean Corpuscular Hemoglobin 32.0, Mean Corpuscular Hemoglobin Concent 34.2, Red Cell Distribution Width 13.0 Medications Scheduled (Clindacin-P) 1 % Pad, 1 % EX BID, (Reported) APPLIES TO FACE Atorvastatin Calcium (Lipitor) 20 Mg Tab, 20 MG PO QHS, (Reported) Bupropion Hcl (Bupropion HCl Xl) 150 Mg Tab, 150 MG PO DAILY, (Reported) Clonazepam (Klonopin) 1 Mg Tab, 1 MG PO Q8H, (Reported) Gabapentin (Gabapentin) 800 Mg Tab, 800 MG PO BID, (Reported) Levothyroxine Sodium (Synthroid) 100 Mcg Tab, 100 MCG PO DAILY, (Reported) Methylphenidate HCl (Ritalin) 20 Mg Tab, 20 MG PO TID, (Reported) TAKES AT 0900,1300,1700 Omeprazole (Prilosec) 20 Mg Cap, 20 MG PO DAILY, (Reported) Paroxetine Hydrochloride (Paxil) 40 Mg Tab, 40 MG PO DAILY for DEPRESSION, ( Reported) Propranolol HCl (Propranolol HCl ER) 120 Mg Cap, 120 MG PO DAILY for BLOOD PRESSURE, (Reported) Scheduled PRN Oxycodone Hcl (Oxycodone HCl) 20 Mg Tab, 20 MG PO Q6H PRN for PAIN, (Reported) Trazodone HCl (Trazodone HCl) 100 Mg Tab, 100 MG PO QHSP PRN for INSOMNIA, ( Reported) Allergies Coded Allergies: Haloperidol (Verified Adverse Reaction, Severe, SEVERE DYSTONIA, 09/26/16) Risperidone (Verified Adverse Reaction, Severe, SEVERE DYSTONIA, 09/26/16) Ziprasidone (Verified Adverse Reaction, Severe, SEVERE DYSTONIA, 09/26/16) Divina Adame September 27, 2016 11:39
[2016-09-27] MEDS: oxyCODONE 5MG TAB PO PRN ×2 (11:47→17:47)
[2016-09-27 18:00] VITALS: BP 136/68
[2016-09-27] MEDS: traZODone 100 MG TAB PO PRN (21:00)
[2016-09-27] MEDS: ATORVASTATIN 20 MG TAB PO SCH (21:56)
[2016-09-28] MEDS: oxyCODONE 5MG TAB PO PRN ×3 (04:18→16:52)
[2016-09-28 05:57] VITALS: BP 135/76
[2016-09-28] MEDS: LEVOTHYROXINE 0.1 MG TAB (100 MCG) PO SCH (06:09)
[2016-09-28 06:47] VITALS: BP 135/76
--- NOTE | 2016-09-28 07:04 | CR ---
DATE OF CONSULTATION: 09/27/2016 Brad Young This is regarding right upper extremity lateral wound. The patient has been recently evaluated at the wound clinic for the same wound. He has a psychiatric history and was recently discharged from the psych unit at [facility]. He was evaluated and treated for the same wound. He has missed follow up appointments at our clinic and has been re-admitted to the psych. unit. I have been asked to reevaluate his wound and suggest wound care treatment. Right upper extremity, lateral aspect shows a wound measuring 10.2 cm x 6.5 cm with a wound depth of less than 0.1 cm. This wound base shows areas of granulation tissue covered with minimal fibrin. Rete peg structures are seen within the wound base, which now represents a partial-thickness wound. The drainage is minimal, serous without odor. At the one- two o'clock position of the periwound, there is a darkened area. This represents a prior tattoo, which was partially destroyed when the patient developed his initial full thickness wound, which has now shown significant improvement. There is less swelling involving the right arm and hand. A recent negative ultrasound was obtained on his last admission. His right arm range of motion with assistance is improving, although his passive range of motion is only 30 degrees. It is difficult to predict if this is a true finding. He was scheduled for orthopedic and physical therapy follow-ups, but due to his readmission has not followed up. Below the wound, there is a small eschar measuring 1.0 cm x 1.0 cm. This is fixed, dry without fluctuation. The periwound shows no erythema, maceration or ischemic change. Wound treatment: Clean wound with Vashe, wound cleanser applied to a 4 x 4 guaze for 10 minutes to the wound, pat dry and apply a foam dressing. The eschar can be covered with a foam dressing and does not require any immediate treatment. Dressing changes for strike-through only and a foam dressing can remain in place for 5-6 days if there is no noted drainage. Followup at our wound clinic on an as needed basis. MTDD
--- NOTE | 2016-09-28 07:51 | HPE ---
DATE OF ADMISSION: 09/26/2016 HISTORY OF THE PRESENT ILLNESS: Please refer to psychiatric history and evaluation for further details on this admission. This examination and history is intended for medical issues which may need treatment, followup, or consult on this 36-year-old male. PRIMARY CARE PROVIDER: Dr. Bri Alvares TOWN MANAGER: Dr. Cole PAST MEDICAL HISTORY Hyperlipidemia. Hypothyroidism. Chronic pain. Allergic rhinitis. Hypertension. Depression. Anxiety. Attention-deficit hyperactivity disorder (ADHD). Insomnia. Panic attacks. Post-traumatic stress disorder (PTSD). Agoraphobia. ECT times seven. Admission at [facility] 05/10. History of substance abuse. Right upper extremity pyomyositis. Rhabdomyolysis. Cellulitis and resultant right upper arm wound, currently being treated by Dr. Cole. PAST SURGICAL HISTORY: Negative. LABORATORY STUDIES: CBC was normal. Electrolytes normal. Chest x-ray showed no acute cardiopulmonary disease. Ultrasound was done of the right upper arm and was negative for deep vein thrombosis (DVT). Urine was positive for opiates, benzodiazepines and cannabinoids. ALLERGIES: HALOPERIDOL, RISPERIDONE, ZIPRASIDONE. SOCIAL HISTORY: He lives in [place]. He is single. Ethyl alcohol (ETOH): None. Smokes: None. Illicit drug use: Marijuana and he has also used in the past Vicodin, amphetamines, though none recently. IV drug use: None. FAMILY HISTORY: Mother alive and well. Father alive - alcohol abuse, depression. REVIEW OF SYSTEMS: Ten-system review was done. Other than right arm pain was negative. PHYSICAL EXAMINATION: A 36-year-old cooperative male in no acute distress. Height 68 inches, weight 96.4 kg, body mass index (BMI) 32.3. Blood pressure 136/60, pulse 69, respirations 16, temperature 98.8. The patient is alert and oriented times three. Pupils are equal and reactive to light. Extraocular movements intact. Cornea and sclerae clear. Conjunctivae is normal. No facial asymmetry. Pharynx: Tongue and gums pink and moist. Tongue is midline. Neck is supple without lymphadenopathy. No thyromegaly. No goiter. Chest is clear to auscultation without wheeze or retractions. Heart is regular. Abdomen benign. Bowel sounds are positive. Genitalia/Rectal: Not done. Extremities show no cyanosis, clubbing or edema. Right upper arm ulceration has been dressed per orders of Dr. Cole. Dressing is in place above and below. No drainage or redness was noted. Just above the elbow on the right, he has a scabbed small ulceration. No redness or drainage. Peripheral pulses equal and palpable bilaterally. Cranial nerves III-XII grossly intact. Electrocardiogram (EKG) done 12/09/2015 shows sinus bradycardia. CURRENT MEDICATIONS: - bupropion 150 mg by mouth daily - Klonopin 1 mg by mouth every 8 hours as needed for anxiety - gabapentin 800 mg by mouth twice a day - Ritalin 20 mg by mouth three times a day - Paxil 40 mg by mouth daily for depression - trazodone 100 mg by mouth nightly as needed for insomnia - atorvastatin 20 mg by mouth nightly - levothyroxine 100 mcg by mouth daily - Prilosec 20 mg by mouth daily - oxycodone 20 mg by mouth every 6 hours as needed for pain - propranolol ER 120 mg by mouth daily IMPRESSION AND PLAN: 1. Psychiatric plan per psychiatry. 2. Hypercholesterolemia. Continue Lipitor. 3. Hypothyroidism. Thyroid-stimulating hormone (TSH) is slightly low at 0.092. Will check a thyroid profile in the morning. Meanwhile, will continue his current dose of levothyroxine 0.1 mg by mouth daily. 4. Hypertension, stable. Continue propranolol. 5. Right upper arm wound. Dressing changes per Dr. Cole. Continue followup with primary care provider on discharge.
[2016-09-28] MEDS: OMEPRAZOLE 20 MG CAP PO SCH (08:52)
[2016-09-28] MEDS: buPROPion **XL** TABLET 150MG (WELLBUTRIN XL) PO SCH (08:53)
[2016-09-28] MEDS: PARoxetine 20 MG TAB PO SCH (08:53)
[2016-09-28] MEDS: PROPRANOLOL 60 MG LA CAP PO SCH (08:53)
[2016-09-28] MEDS ORDERED: TUBERCULIN PPD 5 UNITS/0.1 ML ID ONE (10:00)
[2016-09-28 18:00] VITALS: BP 139/88
--- NOTE | 2016-09-28 18:34 | IPN ---
DATE: 09/28/2016 CHIEF COMPLAINT: Says feels okay. SUBJECTIVE: Seen for followup in the presence of staff. Says feels better and that feels a bit more relaxed as he has resigned himself to going to [facility]. Pain remains an issue. Moods are okay. Anxieties remain. MENTAL STATUS EXAMINATION: He is neat. He is cooperative. Has his right arm raised a bit high on the desk next to him. Says has pain there. There is no agitation. No psychomotor retardation. Affect is restricted but reactive. Denies thoughts of harming himself or anyone else. No evidence of psychosis. Cognition grossly intact. Judgment and insight are questionable. ASSESSMENT: 1. Major depressive disorder, moderate, recurrence. 2. Sedative hypnotic and anxiolytic use disorder. 3. Attention deficit hyperactivity disorder by history. 4. Posttraumatic stress disorder by history. PLAN: Continue current care and observations. Encourage participation in martinez activities in the unit. VITAL SIGNS: Blood pressure 145/96, pulse 72, temperature 97.6.
[2016-09-28] MEDS: ATORVASTATIN 20 MG TAB PO SCH (20:57)
[2016-09-28] MEDS: traZODone 100 MG TAB PO PRN (20:57)
[2016-09-29] MEDS: oxyCODONE 5MG TAB PO PRN ×3 (04:56→18:54)
[2016-09-29] MEDS: LEVOTHYROXINE 0.1 MG TAB (100 MCG) PO SCH (05:53)
[2016-09-29 06:34] VITALS: BP 132/84
[2016-09-29] MEDS: buPROPion **XL** TABLET 150MG (WELLBUTRIN XL) PO SCH (08:07)
[2016-09-29] MEDS: OMEPRAZOLE 20 MG CAP PO SCH (08:07)
[2016-09-29] MEDS: PARoxetine 20 MG TAB PO SCH (08:07)
[2016-09-29] MEDS: PROPRANOLOL 60 MG LA CAP PO SCH (08:08)
[2016-09-29] MEDS ORDERED: PPD DOCUMENTATION ENTRY MISC XX SCH ×2 (10:00)
[2016-09-29 18:00] VITALS: BP 126/70
[2016-09-29] MEDS: ATORVASTATIN 20 MG TAB PO SCH (20:07)
[2016-09-29] MEDS: ACETAMINOPHEN TAB 650MG DOSE (2X325MG) PO PRN (20:07)
[2016-09-29] MEDS: traZODone 100 MG TAB PO PRN (21:51)
--- NOTE | 2016-09-30 00:45 | IPN ---
DATE OF SERVICE: 09/29/2016 CHIEF COMPLAINT: Says feels depressed. SUBJECTIVE: Seen for followup in the presence of staff. Says he feels somewhat depressed, and in pain, but he has been trying to use medicines less frequently, the oxycodone, and has tried using it three times a day rather than four, in an attempt to cut down these. Sleep is fair. MENTAL STATUS EXAMINATION: Neat, cooperative. Coherent. Affect is restricted, but reactive. Denies any active suicidal thoughts or intents. No homicidal ideas or intents. No evidence of psychosis. Cognition is grossly intact. Judgment, insight remain questionable. ASSESSMENT: 1. Major depressive disorder, moderate, recurrent. 2. Sedative hypnotic anxiolytic use disorder. 3. Posttraumatic stress disorder by history. PLAN: Continue with current medication regimen, and care, and we spoke of his attempts to cut down on the oxycodone. We will continue with observations.
[2016-09-30] MEDS: oxyCODONE 5MG TAB PO PRN ×3 (04:44→17:37)
[2016-09-30] MEDS: ACETAMINOPHEN TAB 650MG DOSE (2X325MG) PO PRN ×2 (05:21→15:37)
[2016-09-30] MEDS: LEVOTHYROXINE 0.1 MG TAB (100 MCG) PO SCH (06:10)
[2016-09-30 07:00] VITALS: BP 135/80
[2016-09-30] MEDS: PARoxetine 20 MG TAB PO SCH (09:49)
[2016-09-30] MEDS: PROPRANOLOL 60 MG LA CAP PO SCH (09:49)
[2016-09-30] MEDS: OMEPRAZOLE 20 MG CAP PO SCH (09:49)
[2016-09-30] MEDS: buPROPion **XL** TABLET 150MG (WELLBUTRIN XL) PO SCH (09:49)
--- NOTE | 2016-09-30 16:11 | MHIPNPDOC ---
[facility] Progress Note Progress Note DATE OF SERVICE: 09/30/16 HISTORY: Day 5 of admission. Pt was readmitted a short time after discharge. Feels he can no longer live alone. VITAL SIGNS: See below. NEW TEST RESULTS: na CURRENT MEDICATIONS: See below. MENTAL STATUS EXAMINATION: Patient is a 36 -year old male, who is dressed in hospital attire, hygiene is good, appears tired and in pain. Speech: Is clear and spontaneous Language skills are good Thought processes including: linear Thought content: worried about his arm/hand, has pain, accepting of need to go to [place] since he feels he can no longer live independently. Abstract reasoning, and computation: good Description of associations:good Description of abnormal or psychotic thoughts: pt seeks meds that he admits he does not even need or that he abuses such as ritalin and clonazepam. Pt is not psychotic. He is not manic or hypomanic. Judgment: poor Insight: poor. Orientation: well oriented in all spheres. Recent and remote memory: intact, vague at times. Attention span and concentration: adequate Fund of knowledge: full, intelligent Mood: depressed Affect: restricted DIAGNOSES: 1. MDD, severe, recurrent, without psychotic features. 2. sedative, hypnotic and opiate dependence 3. ADHD by history 4. Panic disorder by history 5. PTSD by history 6. Alcohol dependence in full remission ASSESSMENT: pt is taking paxil, augmented by Wellbutrin XL which he states has improved his mood. If it weren't for the pain in his arm pt would be much better. the swelling is also concerning. He follows recommendations regarding elevating arm, using ice, moving fingers and doing PT exercises. He had a wound consult last week. Pt is sleeping and eating well. He sleeps from 10 p.m. to 4 a.m. then showers. He is attending therapeutic programming as requested. He is up and out of bed each day. He is currently psychiatrically stable. MANAGEMENT PLAN: Pt is waiting for a bed at [facility] [place]. Continue meds, observation and therapeutic programming. TIME SPENT: minutes. Vital Signs Vital Signs Date Time Temp Pulse Resp B/P (MAP) Pulse Ox O2 Delivery O2 Flow Rate FiO2 09/30/16 12:03 16 09/30/16 09:49 66 135/80 09/30/16 07:00 97.6 09/28/16 05:57 Room Air 09/26/16 20:45 100 Current Medications Current Medications Acetaminophen (Tylenol Tab) 650 mg Q6HP PRN PO HEADACHE or DISCOMFORT Last administered on 09/30/16 15:37; Start 09/26/16 at 19:00; Stop 10/26/16 at 18:59 Al Hydrox/Mg Hydrox/Simethicone (Mylanta) 30 ml Q4HP PRN PO HEARTBURN/ INDIGESTION; Start 09/26/16 at 19:00; Stop 10/26/16 at 18:59 Atorvastatin Calcium (Lipitor) 20 mg QHS PO Last administered on 09/29/16 20:07 ; Start 09/27/16 at 21:00; Stop 10/27/16 at 20:59 Bupropion HCl (Wellbutrin Xl) 150 mg QAM PO Last administered on 09/30/16 09:49 ; Start 09/27/16 at 09:00; Stop 10/27/16 at 08:59 Home Med (Med Rec Complete!) ASDIRECTED XX ; Start 09/26/16 at 19:00; Stop at 19:01; Status DC Hydroxyzine HCl (Atarax) 25 mg TIDP PRN PO Anxiety; Start 09/26/16 at 19:00; Stop 10/26/16 at 18:59 Levothyroxine Sodium (Synthroid) 0.1 mg DAILY@0600 PO Last administered on 06:10; Start 09/28/16 at 06:00; Stop 10/28/16 at 05:59 Magnesium Hydroxide (Milk Of Magnesia) 30 ml DAILYPRN PRN PO CONSTIPATION; Start 09/26/16 at 19:00; Stop 10/26/16 at 18:59 Non-Formulary Medication ( See Comment Field Below ) SEE COMMENTS SECTION 1T @10 XX ; Start 09/29/16 at 10:00; Stop 09/30/16 at 09:59; Status UNV Non-Formulary Medication ( See Comment Field Below ) SEE LABEL COMMENTS DAILY XX ; Start 09/27/16 at 09:00; Stop 09/27/16 at 12:07; Status DC Non-Formulary Medication ( See Comment Field Below ) SEE LABEL COMMENTS SECTION 1T@10 XX Last administered on 09/29/16 09:55; Start 09/29/16 at 10:00; Stop 09/29/16 at 23:59; Status DC Omeprazole (PriLOSEC) 20 mg DAILY PO Last administered on 09/30/16 09:49; Start 09/28/16 at 09:00; Stop 10/28/16 at 08:59 Oxycodone HCl (Roxicodone, Oxyir) 20 mg Q6HP PRN PO PAIN Last administered on 11:10; Start 09/27/16 at 10:45; Stop 10/04/16 at 10:44 Paroxetine HCl (PAXil) 40 mg DAILY PO Last administered on 09/30/16 09:49; Start 09/27/16 at 09:00; Stop 10/27/16 at 08:59 Propranolol HCl (Inderal La) 120 mg DAILY PO Last administered on 09/30/16 09: 49; Start 09/28/16 at 09:00; Stop 10/28/16 at 08:59 Sertraline HCl (Zoloft) 50 mg QAM PO ; Start 09/27/16 at 09:00; Stop 10/27/16 at 08:59; Status Cancel Trazodone HCl (Desyrel) 25 mg QHSP PRN PO INSOMNIA; Start 09/26/16 at 23:30; Stop 10/26/16 at 23:29; Status Cancel Trazodone HCl (Desyrel) 50 mg QHSP PRN PO INSOMNIA Last administered on 21:47; Start 09/26/16 at 19:00; Stop 09/26/16 at 23:16; Status DC Trazodone HCl (Desyrel) 100 mg QHSP PRN PO INSOMNIA Last administered on 21:51; Start 09/26/16 at 23:30; Stop 10/26/16 at 23:29 Tuberculin PPD (Aplisol, Ppd) 5 units 1T@10 ID Last administered on 09/27/16 16 :23; Start 09/27/16 at 10:00; Stop 09/27/16 at 23:59; Status DC Allergies Coded Allergies: Haloperidol (Verified Adverse Reaction, Severe, SEVERE DYSTONIA, 09/26/16) Risperidone (Verified Adverse Reaction, Severe, SEVERE DYSTONIA, 09/26/16) Ziprasidone (Verified Adverse Reaction, Severe, SEVERE DYSTONIA, 09/26/16) Divina Adame September 30, 2016 16:11
[2016-09-30 18:00] VITALS: BP 119/68
[2016-09-30] MEDS: ATORVASTATIN 20 MG TAB PO SCH (19:58)
[2016-09-30] MEDS: traZODone 100 MG TAB PO PRN (19:58)
[2016-10-01] MEDS: oxyCODONE 5MG TAB PO PRN ×3 (02:25→16:13)
[2016-10-01] MEDS: ACETAMINOPHEN TAB 650MG DOSE (2X325MG) PO PRN ×2 (03:00→20:14)
[2016-10-01] MEDS: LEVOTHYROXINE 0.1 MG TAB (100 MCG) PO SCH (05:37)
[2016-10-01 06:26] VITALS: BP 133/76
[2016-10-01] MEDS: PROPRANOLOL 60 MG LA CAP PO SCH (08:25)
[2016-10-01] MEDS: PARoxetine 20 MG TAB PO SCH (08:25)
[2016-10-01] MEDS: OMEPRAZOLE 20 MG CAP PO SCH (08:25)
[2016-10-01] MEDS: buPROPion **XL** TABLET 150MG (WELLBUTRIN XL) PO SCH (08:25)
[2016-10-01] MEDS ORDERED: traZODone 50 MG TAB PO PRN (12:45)
--- NOTE | 2016-10-01 14:12 | MHIPNPDOC ---
[facility] Progress Note Progress Note DATE OF SERVICE: 10/01/16 HISTORY: day 6 of admission VITAL SIGNS: See below. NEW TEST RESULTS: wound culture CURRENT MEDICATIONS: See below. MENTAL STATUS EXAMINATION: Patient is a 36-year old male, who is dressed in scrub bottoms and a sweater, appears tired and depressed, and is pleasant and cooperative. Speech: Is clear, coherent Language skills are good. Thought processes including: depressive thoughts, fleeting suicidal thoughts, goal directed. Thought content: future oriented Abstract reasoning, and computation:good. Description of associations: good Description of abnormal or psychotic thoughts: intermittent fleeting thoughts of suicide without specific plan or intent. Denies ever hearing voices or seeing things. Judgment: fair to poor Insight: fair. Orientation: well oriented. Recent and remote memory: grossly intact. Attention span and concentration: adequate Fund of knowledge: fair at times, impaired at others. Mood: depressed, hopeless Affect: congruent DIAGNOSES: 1. MDD, severe, recurrent 2. Panic disorder by history 3. PTSD by history 4. ADHD by history 5. Alcohol dependence in remission 6. sedative, hypnotic and opiate dependence - active ASSESSMENT:Pt is attending groups and meeting with staff as requested. he is not a behavior problem on the unit. He keeps to himself. he is preoccupied by this arm pain and limited use of the arm. He is stable and in need of a supportive living environment. He will be meeting with [facility] this week to finish the intake process with them. Pt is sleeping well. He is hydrating and eating well. Denies constipation, d/v/n. Encouraged to discuss fleeting thoughts of suicide with staff as it happens. MANAGEMENT PLAN: continue meds and therapeutic programming. TIME SPENT: 30 minutes. Vital Signs Vital Signs Date Time Temp Pulse Resp B/P (MAP) Pulse Ox O2 Delivery O2 Flow Rate FiO2 10/01/16 08:56 20 10/01/16 08:25 61 132/68 10/01/16 06:26 97.8 09/28/16 05:57 Room Air 09/26/16 20:45 100 Current Medications Current Medications Acetaminophen (Tylenol Tab) 650 mg Q6HP PRN PO HEADACHE or DISCOMFORT Last administered on 10/01/16t 03:00; Start 09/26/16 at 19:00; Stop 10/26/16 at 18:59 Al Hydrox/Mg Hydrox/Simethicone (Mylanta) 30 ml Q4HP PRN PO HEARTBURN/ INDIGESTION; Start 09/26/16 at 19:00; Stop 10/26/16 at 18:59 Atorvastatin Calcium (Lipitor) 20 mg QHS PO Last administered on 09/30/16 19:58 ; Start 09/27/16 at 21:00; Stop 10/27/16 at 20:59 Bupropion HCl (Wellbutrin Xl) 150 mg QAM PO Last administered on 10/01/16 08:25 ; Start 09/27/16 at 09:00; Stop 10/27/16 at 08:59 Home Med (Med Rec Complete!) ASDIRECTED XX ; Start 09/26/16 at 19:00; Stop at 19:01; Status DC Hydroxyzine HCl (Atarax) 25 mg TIDP PRN PO Anxiety; Start 09/26/16 at 19:00; Stop 10/26/16 at 18:59 Levothyroxine Sodium (Synthroid) 0.1 mg DAILY@0600 PO Last administered on 05:37; Start 09/28/16 at 06:00; Stop 10/28/16 at 05:59 Magnesium Hydroxide (Milk Of Magnesia) 30 ml DAILYPRN PRN PO CONSTIPATION; Start 09/26/16 at 19:00; Stop 10/26/16 at 18:59 Non-Formulary Medication ( See Comment Field Below ) SEE COMMENTS SECTION 1T @10 XX ; Start 09/29/16 at 10:00; Stop 09/30/16 at 09:59; Status UNV Non-Formulary Medication ( See Comment Field Below ) SEE LABEL COMMENTS DAILY XX ; Start 09/27/16 at 09:00; Stop 09/27/16 at 12:07; Status DC Non-Formulary Medication ( See Comment Field Below ) SEE LABEL COMMENTS SECTION 1T@10 XX Last administered on 09/29/16 09:55; Start 09/29/16 at 10:00; Stop 09/29/16 at 23:59; Status DC Omeprazole (PriLOSEC) 20 mg DAILY PO Last administered on 10/01/16 08:25; Start 09/28/16 at 09:00; Stop 10/28/16 at 08:59 Oxycodone HCl (Roxicodone, Oxyir) 20 mg Q6HP PRN PO PAIN Last administered on 08:26; Start 09/27/16 at 10:45; Stop 10/04/16 at 10:44 Paroxetine HCl (PAXil) 40 mg DAILY PO Last administered on 10/01/16 08:25; Start 09/27/16 at 09:00; Stop 10/27/16 at 08:59 Propranolol HCl (Inderal La) 120 mg DAILY PO Last administered on 10/01/16 08: 25; Start 09/28/16 at 09:00; Stop 10/28/16 at 08:59 Sertraline HCl (Zoloft) 50 mg QAM PO ; Start 09/27/16 at 09:00; Stop 10/27/16 at 08:59; Status Cancel Trazodone HCl (Desyrel) 25 mg QHSP PRN PO INSOMNIA; Start 09/26/16 at 23:30; Stop 10/26/16 at 23:29; Status Cancel Trazodone HCl (Desyrel) 50 mg QHSP PRN PO INSOMNIA Last administered on 21:47; Start 09/26/16 at 19:00; Stop 09/26/16 at 23:16; Status DC Trazodone HCl (Desyrel) 100 mg QHSP PRN PO INSOMNIA Last administered on 19:58; Start 09/26/16 at 23:30; Stop 10/01/16 at 12:38; Status DC Trazodone HCl (Desyrel) 150 mg QHSP PRN PO INSOMNIA; Start 10/01/16 at 12:45; Stop 10/31/16 at 12:44 Tuberculin PPD (Aplisol, Ppd) 5 units 1T@10 ID Last administered on 09/27/16 16 :23; Start 09/27/16 at 10:00; Stop 09/27/16 at 23:59; Status DC Allergies Coded Allergies: Haloperidol (Verified Adverse Reaction, Severe, SEVERE DYSTONIA, 09/26/16) Risperidone (Verified Adverse Reaction, Severe, SEVERE DYSTONIA, 09/26/16) Ziprasidone (Verified Adverse Reaction, Severe, SEVERE DYSTONIA, 09/26/16) Divina Adame October 01, 2016 14:12
[2016-10-01 18:31] VITALS: BP 133/85
[2016-10-01] MEDS: ATORVASTATIN 20 MG TAB PO SCH (20:13)
[2016-10-02] MEDS: oxyCODONE 5MG TAB PO PRN ×4 (02:11→20:30)
[2016-10-02] MEDS: ACETAMINOPHEN TAB 650MG DOSE (2X325MG) PO PRN ×2 (02:16→16:53)
[2016-10-02] MEDS: LEVOTHYROXINE 0.1 MG TAB (100 MCG) PO SCH (06:09)
[2016-10-02 06:14] VITALS: BP 121/75
[2016-10-02] MEDS: PARoxetine 20 MG TAB PO SCH (08:11)
[2016-10-02] MEDS: buPROPion **XL** TABLET 150MG (WELLBUTRIN XL) PO SCH (08:11)
[2016-10-02] MEDS: OMEPRAZOLE 20 MG CAP PO SCH (08:11)
[2016-10-02] MEDS: PROPRANOLOL 60 MG LA CAP PO SCH (08:11)
--- NOTE | 2016-10-02 11:26 | MHIPNPDOC ---
[facility] Progress Note Progress Note DATE OF SERVICE: 10/02/16 HISTORY: day 7 of admission VITAL SIGNS: See below. NEW TEST RESULTS: NA CURRENT MEDICATIONS: See below. MENTAL STATUS EXAMINATION: Patient is a 36-year old male, who is wearing hospital pj's on bottom and sweater on top, has a swollen right hand, makes good eye contact, appears tired. Speech: Is spontaneous Language skills are grossly intact Thought processes including: linear Thought content: housing, transfer, discharge, not sleeping, meds. Abstract reasoning, and computation:good. Description of associations: good. Description of abnormal or psychotic thoughts: overwhelmed, does not feel capable of taking care of himself independently, occasional SI. without intent or plan. No HI. Denies perceptual disturbances. Judgment: fair Insight: fair. Orientation: A & O x 3 Recent and remote memory: intact Attention span and concentration: adequate Fund of knowledge: full Mood: depressed. Affect: stressed, anxious DIAGNOSES: 1. MDD severe, recurrent w/o psychotic features. 2. Sedative, hypnotic, opiate dependence 3. Alcohol dependence in remission 4. Panic disorder by history 5. PTSD by history 6. ADHD by history ASSESSMENT:Pt is not sleeping. We have increased his trazodone to 150 mg and he does not want to go higher due to the after effects the med causes the next day. Pt asked to be changed to Remeron. Pt is attending groups and interaction appropriately with peers. His interaction is minimal as he prefers to interact with Staff. He is in contact with family. Pt is taking meds and talking about his stressors. Pt is hopeful he will be accepted at [facility] [place] and prefers to go there versus [facility] with supports. MANAGEMENT PLAN: Discontinue trazodone 150 mg and replace with mirtazapine 15 mg. Pt has found this medication helpful in the past. He reports extreme akathesia on even low doses of SGA. Pt is open to completing [facility] intake and getting on the waiting list. Pt has done very poorly this year living on his own even with Case management support. He sabotages his progress by engaging in med seeking behavior for prescriptions he admittingly abuses or does not need. Some of this is driven by the pain of his right arm following a muscle infection. Some of it is old behavior and lack of motivation to push himself to live up to his potential. He does not have a thought disorder and his substance abuse complicates his mood disorder. GABE treatment would be helpful but he says he has done rehab over and over and he does not want to do that anymore. TIME SPENT: 30 minutes. Vital Signs Vital Signs Date Time Temp Pulse Resp B/P (MAP) Pulse Ox O2 Delivery O2 Flow Rate FiO2 10/02/16 09:00 16 10/02/16 08:11 67 121/75 10/02/16 06:14 97.5 Room Air 09/26/16 20:45 100 Current Medications Current Medications Acetaminophen (Tylenol Tab) 650 mg Q6HP PRN PO HEADACHE or DISCOMFORT Last administered on 10/02/16 02:16; Start 09/26/16 at 19:00; Stop 10/26/16 at 18:59 Al Hydrox/Mg Hydrox/Simethicone (Mylanta) 30 ml Q4HP PRN PO HEARTBURN/ INDIGESTION; Start 09/26/16 at 19:00; Stop 10/26/16 at 18:59 Atorvastatin Calcium (Lipitor) 20 mg QHS PO Last administered on 10/01/16 20:13 ; Start 09/27/16 at 21:00; Stop 10/27/16 at 20:59 Bupropion HCl (Wellbutrin Xl) 150 mg QAM PO Last administered on 10/02/16 08: 11; Start 09/27/16 at 09:00; Stop 10/27/16 at 08:59 Home Med (Med Rec Complete!) ASDIRECTED XX ; Start 09/26/16 at 19:00; Stop at 19:01; Status DC Hydroxyzine HCl (Atarax) 25 mg TIDP PRN PO Anxiety; Start 09/26/16 at 19:00; Stop 10/26/16 at 18:59 Levothyroxine Sodium (Synthroid) 0.1 mg DAILY@0600 PO Last administered on 10/02 06:09; Start 09/28/16 at 06:00; Stop 10/28/16 at 05:59 Magnesium Hydroxide (Milk Of Magnesia) 30 ml DAILYPRN PRN PO CONSTIPATION; Start 09/26/16 at 19:00; Stop 10/26/16 at 18:59 Mirtazapine (Remeron) 15 mg QHS PO ; Start 10/02/16 at 21:00; Stop 11/01/16 at 20 :59 Non-Formulary Medication ( See Comment Field Below ) SEE COMMENTS SECTION 1T @10 XX ; Start 09/29/16 at 10:00; Stop 09/30/16 at 09:59; Status UNV Non-Formulary Medication ( See Comment Field Below ) SEE LABEL COMMENTS DAILY XX ; Start 09/27/16 at 09:00; Stop 09/27/16 at 12:07; Status DC Non-Formulary Medication ( See Comment Field Below ) SEE LABEL COMMENTS SECTION 1T@10 XX Last administered on 09/29/16 09:55; Start 09/29/16 at 10:00; Stop 09/29/16 at 23:59; Status DC Omeprazole (PriLOSEC) 20 mg DAILY PO Last administered on 10/02/16 08:11; Start 09/28/16 at 09:00; Stop 10/28/16 at 08:59 Oxycodone HCl (Roxicodone, Oxyir) 20 mg Q6HP PRN PO PAIN Last administered on 08:12; Start 09/27/16 at 10:45; Stop 10/04/16 at 10:44 Paroxetine HCl (PAXil) 40 mg DAILY PO Last administered on 10/02/16 08:11; Start 09/27/16 at 09:00; Stop 10/27/16 at 08:59 Propranolol HCl (Inderal La) 120 mg DAILY PO Last administered on 10/02/16 08: 11; Start 09/28/16 at 09:00; Stop 10/28/16 at 08:59 Sertraline HCl (Zoloft) 50 mg QAM PO ; Start 09/27/16 at 09:00; Stop 10/27/16 at 08:59; Status Cancel Trazodone HCl (Desyrel) 25 mg QHSP PRN PO INSOMNIA; Start 09/26/16 at 23:30; Stop 10/26/16 at 23:29; Status Cancel Trazodone HCl (Desyrel) 50 mg QHSP PRN PO INSOMNIA Last administered on 21:47; Start 09/26/16 at 19:00; Stop 09/26/16 at 23:16; Status DC Trazodone HCl (Desyrel) 100 mg QHSP PRN PO INSOMNIA Last administered on 19:58; Start 09/26/16 at 23:30; Stop 10/01/16 at 12:38; Status DC Trazodone HCl (Desyrel) 150 mg QHSP PRN PO INSOMNIA Last administered on 20:13; Start 10/01/16 at 12:45; Stop 10/02/16 at 10:14; Status DC Tuberculin PPD (Aplisol, Ppd) 5 units 1T@10 ID Last administered on 09/27/16 16 :23; Start 09/27/16 at 10:00; Stop 09/27/16 at 23:59; Status DC Allergies Coded Allergies: Haloperidol (Verified Adverse Reaction, Severe, SEVERE DYSTONIA, 09/26/16) Risperidone (Verified Adverse Reaction, Severe, SEVERE DYSTONIA, 09/26/16) Ziprasidone (Verified Adverse Reaction, Severe, SEVERE DYSTONIA, 09/26/16) Divina Adame October 02, 2016 11:26
[2016-10-02 18:00] VITALS: BP 130/79
[2016-10-02] MEDS: ATORVASTATIN 20 MG TAB PO SCH (20:30)
[2016-10-02] MEDS: MIRTAZAPINE 15 MG TAB PO SCH (20:30)
[2016-10-03] MEDS: LEVOTHYROXINE 0.1 MG TAB (100 MCG) PO SCH (05:43)
[2016-10-03] MEDS: oxyCODONE 5MG TAB PO PRN ×3 (05:43→19:19)
[2016-10-03 06:36] VITALS: BP 139/70
[2016-10-03] MEDS: PARoxetine 20 MG TAB PO SCH (08:28)
[2016-10-03] MEDS: PROPRANOLOL 60 MG LA CAP PO SCH (08:29)
[2016-10-03] MEDS: OMEPRAZOLE 20 MG CAP PO SCH (08:29)
[2016-10-03] MEDS: buPROPion **XL** TABLET 150MG (WELLBUTRIN XL) PO SCH (08:29)
[2016-10-03] MEDS: ACETAMINOPHEN TAB 650MG DOSE (2X325MG) PO PRN ×2 (12:13→19:17)
--- NOTE | 2016-10-03 13:04 | IPNPDOC ---
Subjective Date Seen The patient was seen on 10/03/16. Subjective Chief Complaint/HPI The patient is a 36-year-old male admitted with a reason for visit of Major Depression. Events since last encounter Pt states still persistent pain related to Rt shoulder. Pt states pain level is still high. Pt states edema in Rt hand is improved. ENT: Denies: Head Aches, Ear Pain, Dysphagia Pulmonary: Denies: Dyspnea, Cough Cardiovascular: Denies: Chest Pain, Palpitations, Orthopnea, Paroxysmal Noc. Dyspnea, Lt Headedness Gastrointestinal: Denies: Nausea, Vomiting, Abdominal Pain, Diarrhea, Constipation Genitourinary: Denies: Dysuria, Frequency, Incontinence, Retention Objective Physical Examination General Exam: Positive: Alert Eye Exam: Positive: PERRLA ENT Exam: Positive: Atraumatic Neck Exam: Positive: Supple Skin Exam: Positive: Nl turgor and temperature Assessment /Plan Problems (1) Chronic pain in shoulder Status: Acute Problem Text: * Will continue present Oxycodone as per previous order 20mg Q6 * ISTOP obtained and was filled 09/14/16. Ref #[id number] * Pt states was prescribed Gabapentin as per PCP 800BID but pt states he never picked it up or started it. * Will request pain mgmt opinion for any further recommendations. * Cont outpt F/U with PCP, Ortho, Wound care, Pain management. * Pt established with Dr Alvares 09/11/16 and was referred to pain management at that time for any further recommendations. (2) Edema of upper extremity Status: Acute Problem Text: * improved currently. Plan/VTE VTE Prophylaxis Ordered?: No (ambulatory) VS, I&O, 24H, Fishbone Vital Signs/I&O Vital Signs Date Time Temp Pulse Resp B/P (MAP) Pulse Ox O2 Delivery O2 Flow Rate FiO2 10/03/16 12:12 18 10/03/16 08:29 70 135/80 10/03/16 06:36 97.8 10/02/16 18:00 Room Air Laboratory Data Microbiology Microbiology 09/27/16 Gram Stain - Final, Complete 09/27/16 Wound Culture - Final, Complete Klebsiella Oxytoca Staphylococcus Sp Coag Neg Staphylococcus Haemolyticus Carleen Cole October 03, 2016 13:04
--- NOTE | 2016-10-03 15:22 | MHIPNPDOC ---
[facility] Progress Note Progress Note DATE OF SERVICE: 10/03/16 HISTORY: Day 8 of admission/Pt completed intake paperwork with TLS VITAL SIGNS: See below. NEW TEST RESULTS:Ortho and Pain Mgt Consults entered today CURRENT MEDICATIONS: See below. MENTAL STATUS EXAMINATION: Patient is a 36-year old male, who is dressed in hospital pj bottoms and a sweater, has hair growth on chin, adequate hygiene, good eye contact. Speech: Is spontaneous Language skills are good Thought processes including: goal directed Thought content: appropriate Abstract reasoning, and computation: good Description of associations: good. Description of abnormal or psychotic thoughts: not suicidal or homicidal, has fleeting thoughts of suicide. Gets angry when comic book writer tells him he must taper off the oxycodone, stating "I'm not ready yet". Judgment: poor Insight:limited. Orientation: oriented in all spheres Recent and remote memory: intact Attention span and concentration: adequate Fund of knowledge: full Mood:depressed. Affect: congruent DIAGNOSES: 1. MDD 2. sedative, hypnotic and opiate dependent 3. PTSD by history 4. panic disorder by history 5. Alcohol dependence by history 6. ADHD by history. ASSESSMENT:Pt is stable on the unit. His pain medication is due to be renewed. He has been on oxycodone off and on for many months. When not available here he will go [place] state to and get it. 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 Pt has a long history of abusing prescription medications and doctor shopping. Since his hand still appears swollen and he reports it is painful an ortho consult was also placed to help support the healing of the hand and reduction in swelling. Pt is eating and last night he slept well on the mirtazapine. He is attending select groups. He keeps to himself. He is taking medications as prescribed. MANAGEMENT PLAN: continue medications, continue observation, complete consultation with specialists, complete TLS paperwork, participate in Discharge planning. TIME SPENT: 15 minutes. Vital Signs Vital Signs Date Time Temp Pulse Resp B/P (MAP) Pulse Ox O2 Delivery O2 Flow Rate FiO2 10/03/16 12:45 18 10/03/16 08:29 70 135/80 10/03/16 06:36 97.8 10/02/16 18:00 Room Air Current Medications Current Medications Acetaminophen (Tylenol Tab) 650 mg Q6HP PRN PO HEADACHE or DISCOMFORT Last administered on 10/03/16 12:13; Start 09/26/16 at 19:00; Stop 10/26/16 at 18:59 Al Hydrox/Mg Hydrox/Simethicone (Mylanta) 30 ml Q4HP PRN PO HEARTBURN/ INDIGESTION; Start 09/26/16 at 19:00; Stop 10/26/16 at 18:59 Atorvastatin Calcium (Lipitor) 20 mg QHS PO Last administered on 10/02/16 20: 30; Start 09/27/16 at 21:00; Stop 10/27/16 at 20:59 Bupropion HCl (Wellbutrin Xl) 150 mg QAM PO Last administered on 10/03/16 08: 29; Start 09/27/16 at 09:00; Stop 10/27/16 at 08:59 Home Med (Med Rec Complete!) ASDIRECTED XX ; Start 09/26/16 at 19:00; Stop at 19:01; Status DC Hydroxyzine HCl (Atarax) 25 mg TIDP PRN PO Anxiety; Start 09/26/16 at 19:00; Stop 10/26/16 at 18:59 Levothyroxine Sodium (Synthroid) 0.1 mg DAILY@0600 PO Last administered on 10/03 05:43; Start 09/28/16 at 06:00; Stop 10/28/16 at 05:59 Magnesium Hydroxide (Milk Of Magnesia) 30 ml DAILYPRN PRN PO CONSTIPATION; Start 09/26/16 at 19:00; Stop 10/26/16 at 18:59 Mirtazapine (Remeron) 15 mg QHS PO Last administered on 10/02/16 20:30; Start 10/02/16 at 21:00; Stop 11/01/16 at 20:59 Non-Formulary Medication ( See Comment Field Below ) SEE COMMENTS SECTION 1T @10 XX ; Start 09/29/16 at 10:00; Stop 09/30/16 at 09:59; Status UNV Non-Formulary Medication ( See Comment Field Below ) SEE LABEL COMMENTS DAILY XX ; Start 09/27/16 at 09:00; Stop 09/27/16 at 12:07; Status DC Non-Formulary Medication ( See Comment Field Below ) SEE LABEL COMMENTS SECTION 1T@10 XX Last administered on 09/29/16 09:55; Start 09/29/16 at 10:00; Stop 09/29/16 at 23:59; Status DC Omeprazole (PriLOSEC) 20 mg DAILY PO Last administered on 10/03/16 08:29; Start 09/28/16 at 09:00; Stop 10/28/16 at 08:59 Oxycodone HCl (Roxicodone, Oxyir) 20 mg Q6HP PRN PO PAIN Last administered on 12:12; Start 09/27/16 at 10:45; Stop 10/04/16 at 10:44 Paroxetine HCl (PAXil) 40 mg DAILY PO Last administered on 10/03/16 08:28; Start 09/27/16 at 09:00; Stop 10/27/16 at 08:59 Propranolol HCl (Inderal La) 120 mg DAILY PO Last administered on 10/03/16 08: 29; Start 09/28/16 at 09:00; Stop 10/28/16 at 08:59 Sertraline HCl (Zoloft) 50 mg QAM PO ; Start 09/27/16 at 09:00; Stop 10/27/16 at 08:59; Status Cancel Trazodone HCl (Desyrel) 25 mg QHSP PRN PO INSOMNIA; Start 09/26/16 at 23:30; Stop 10/26/16 at 23:29; Status Cancel Trazodone HCl (Desyrel) 50 mg QHSP PRN PO INSOMNIA Last administered on 21:47; Start 09/26/16 at 19:00; Stop 09/26/16 at 23:16; Status DC Trazodone HCl (Desyrel) 100 mg QHSP PRN PO INSOMNIA Last administered on 19:58; Start 09/26/16 at 23:30; Stop 10/01/16 at 12:38; Status DC Trazodone HCl (Desyrel) 150 mg QHSP PRN PO INSOMNIA Last administered on 20:13; Start 10/01/16 at 12:45; Stop 10/02/16 at 10:14; Status DC Tuberculin PPD (Aplisol, Ppd) 5 units 1T@10 ID Last administered on 09/27/16t 16 :23; Start 09/27/16 at 10:00; Stop 09/27/16 at 23:59; Status DC Allergies Coded Allergies: Haloperidol (Verified Adverse Reaction, Severe, SEVERE DYSTONIA, 09/26/16) Risperidone (Verified Adverse Reaction, Severe, SEVERE DYSTONIA, 09/26/16) Ziprasidone (Verified Adverse Reaction, Severe, SEVERE DYSTONIA, 09/26/16) Divina Adame October 03, 2016 15:22
[2016-10-03 18:00] VITALS: BP 145/82
[2016-10-03] MEDS: MIRTAZAPINE 15 MG TAB PO SCH (20:05)
[2016-10-03] MEDS: ATORVASTATIN 20 MG TAB PO SCH (20:05)
[2016-10-04] MEDS: oxyCODONE 5MG TAB PO PRN ×3 (02:01→17:18)
[2016-10-04] MEDS: LEVOTHYROXINE 0.1 MG TAB (100 MCG) PO SCH (06:02)
[2016-10-04 06:16] VITALS: BP 141/96
[2016-10-04] MEDS: PROPRANOLOL 60 MG LA CAP PO SCH (09:17)
[2016-10-04] MEDS: buPROPion **XL** TABLET 150MG (WELLBUTRIN XL) PO SCH (09:17)
[2016-10-04] MEDS: OMEPRAZOLE 20 MG CAP PO SCH (09:17)
[2016-10-04] MEDS: PARoxetine 20 MG TAB PO SCH (09:17)
--- NOTE | 2016-10-04 11:24 | MHIPNPDOC ---
[facility] Progress Note Progress Note DATE OF SERVICE: 10/04/16 HISTORY: day 9 of admission waiting for placement VITAL SIGNS: See below. NEW TEST RESULTS: ortho consult and pain mgt consult placed. CURRENT MEDICATIONS: See below. MENTAL STATUS EXAMINATION: Patient is a 36-year old male, who is dressed in hospital garb, has a slight la, dark circles under eyes. Speech: Is spontaneous Language skills are intact Thought processes including: goal directed and logical Thought content: pain meds, placement Abstract reasoning, and computation: good. Description of associations: good. Description of abnormal or psychotic thoughts: denies SI, denies HI, no psychosis present. Judgment: poor Insight: limited, denies addiction problems. Orientation: well oriented in all spheres. Recent and remote memory: intact Attention span and concentration: adequate Fund of knowledge: full Mood: depressed. Affect: anxious DIAGNOSES: 1. MDD, severe, recurrent, without psychotic features. 2. sedative, hypnotic and opiate dependence 3. ADHD by history 4. Panic disorder by history 5. PTSD by history 6. Alcohol dependence in full remission. ASSESSMENT:Pt was informed that pain mgt consult has been placed and the goal is to get him off the oxycodone. He states he is willing to participate in the taper of the drug and replacement with motrin. He denies shoulder pain but reports hand pain.Pt gets very anxious and upset when discussion is held about his use of oxycodone and he wants to participate in any discussion regarding a taper. He was advised he would be involved in all stages of the taper and replacement. Pt is attending groups and is visible on the unit. he keeps to himself. He is anxious about placement. He is anxious he won't get pain meds. He was assured that was not the case. Note by Carleen PARRA was read. MANAGEMENT PLAN: no medication changes, continue observation and group activities. TIME SPENT: 30 minutes. Vital Signs Vital Signs Date Time Temp Pulse Resp B/P (MAP) Pulse Ox O2 Delivery O2 Flow Rate FiO2 10/04/16 09:58 16 10/04/16 09:17 67 141/96 10/04/16 06:16 97.8 10/02/16 18:00 Room Air Current Medications Current Medications Acetaminophen (Tylenol Tab) 650 mg Q6HP PRN PO HEADACHE or DISCOMFORT Last administered on 10/03/16 19:17; Start 09/26/16 at 19:00; Stop 10/26/16 at 18:59 Al Hydrox/Mg Hydrox/Simethicone (Mylanta) 30 ml Q4HP PRN PO HEARTBURN/ INDIGESTION; Start 09/26/16 at 19:00; Stop 10/26/16 at 18:59 Atorvastatin Calcium (Lipitor) 20 mg QHS PO Last administered on 10/03/16 20: 05; Start 09/27/16 at 21:00; Stop 10/27/16 at 20:59 Bupropion HCl (Wellbutrin Xl) 150 mg QAM PO Last administered on 10/04/16 09: 17; Start 09/27/16 at 09:00; Stop 10/27/16 at 08:59 Home Med (Med Rec Complete!) ASDIRECTED XX ; Start 09/26/16 at 19:00; Stop at 19:01; Status DC Hydroxyzine HCl (Atarax) 25 mg TIDP PRN PO Anxiety; Start 09/26/16 at 19:00; Stop 10/26/16 at 18:59 Levothyroxine Sodium (Synthroid) 0.1 mg DAILY@0600 PO Last administered on 10/04 06:02; Start 09/28/16 at 06:00; Stop 10/28/16 at 05:59 Magnesium Hydroxide (Milk Of Magnesia) 30 ml DAILYPRN PRN PO CONSTIPATION; Start 09/26/16 at 19:00; Stop 10/26/16 at 18:59 Mirtazapine (Remeron) 15 mg QHS PO Last administered on 10/03/16 20:05; Start 10/02/16 at 21:00; Stop 11/01/16 at 20:59 Non-Formulary Medication ( See Comment Field Below ) SEE COMMENTS SECTION 1T @10 XX ; Start 09/29/16 at 10:00; Stop 09/30/16 at 09:59; Status UNV Non-Formulary Medication ( See Comment Field Below ) SEE LABEL COMMENTS DAILY XX ; Start 09/27/16 at 09:00; Stop 09/27/16 at 12:07; Status DC Non-Formulary Medication ( See Comment Field Below ) SEE LABEL COMMENTS SECTION 1T@10 XX Last administered on 09/29/16 09:55; Start 09/29/16 at 10:00; Stop 09/29/16 at 23:59; Status DC Omeprazole (PriLOSEC) 20 mg DAILY PO Last administered on 10/04/16 09:17; Start 09/28/16 at 09:00; Stop 10/28/16 at 08:59 Oxycodone HCl (Roxicodone, Oxyir) 20 mg Q6HP PRN PO PAIN Last administered on 09:18; Start 09/27/16 at 10:45; Stop 10/10/16 at 10:44 Paroxetine HCl (PAXil) 40 mg DAILY PO Last administered on 10/04/16 09:17; Start 09/27/16 at 09:00; Stop 10/27/16 at 08:59 Propranolol HCl (Inderal La) 120 mg DAILY PO Last administered on 10/04/16 09: 17; Start 09/28/16 at 09:00; Stop 10/28/16 at 08:59 Sertraline HCl (Zoloft) 50 mg QAM PO ; Start 09/27/16 at 09:00; Stop 10/27/16 at 08:59; Status Cancel Trazodone HCl (Desyrel) 25 mg QHSP PRN PO INSOMNIA; Start 09/26/16 at 23:30; Stop 10/26/16 at 23:29; Status Cancel Trazodone HCl (Desyrel) 50 mg QHSP PRN PO INSOMNIA Last administered on 21:47; Start 09/26/16 at 19:00; Stop 09/26/16 at 23:16; Status DC Trazodone HCl (Desyrel) 100 mg QHSP PRN PO INSOMNIA Last administered on 19:58; Start 09/26/16 at 23:30; Stop 10/01/16 at 12:38; Status DC Trazodone HCl (Desyrel) 150 mg QHSP PRN PO INSOMNIA Last administered on 20:13; Start 10/01/16 at 12:45; Stop 10/02/16 at 10:14; Status DC Tuberculin PPD (Aplisol, Ppd) 5 units 1T@10 ID Last administered on 09/27/16t 16 :23; Start 09/27/16 at 10:00; Stop 09/27/16 at 23:59; Status DC Allergies Coded Allergies: Haloperidol (Verified Adverse Reaction, Severe, SEVERE DYSTONIA, 09/26/16) Risperidone (Verified Adverse Reaction, Severe, SEVERE DYSTONIA, 09/26/16) Ziprasidone (Verified Adverse Reaction, Severe, SEVERE DYSTONIA, 09/26/16) Divina Adame October 04, 2016 11:24
[2016-10-04] MEDS: GABAPENTIN 300 MG CAP PO SCH ×2 (14:24→21:39)
[2016-10-04 18:00] VITALS: BP 126/73
[2016-10-04] MEDS: MIRTAZAPINE 15 MG TAB PO SCH (21:39)
[2016-10-04] MEDS: ATORVASTATIN 20 MG TAB PO SCH (21:39)
[2016-10-05] MEDS: LEVOTHYROXINE 0.1 MG TAB (100 MCG) PO SCH (06:30)
[2016-10-05 06:37] VITALS: BP 140/66
[2016-10-05] MEDS: OMEPRAZOLE 20 MG CAP PO SCH (08:37)
[2016-10-05] MEDS: GABAPENTIN 300 MG CAP PO SCH ×2 (08:37→21:14)
[2016-10-05] MEDS: buPROPion **XL** TABLET 150MG (WELLBUTRIN XL) PO SCH (08:37)
[2016-10-05] MEDS: PARoxetine 20 MG TAB PO SCH (08:37)
[2016-10-05] MEDS: PROPRANOLOL 60 MG LA CAP PO SCH (08:38)
[2016-10-05] MEDS: oxyCODONE 5MG TAB PO PRN ×3 (08:38→21:35)
[2016-10-05 18:00] VITALS: BP 125/75
[2016-10-05] MEDS: MIRTAZAPINE 15 MG TAB PO SCH (21:14)
[2016-10-05] MEDS: ATORVASTATIN 20 MG TAB PO SCH (21:14)
[2016-10-06] MEDS: LEVOTHYROXINE 0.1 MG TAB (100 MCG) PO SCH (06:05)
[2016-10-06 06:21] VITALS: BP 122/60
[2016-10-06] MEDS: PARoxetine 20 MG TAB PO SCH (09:08)
[2016-10-06] MEDS: PROPRANOLOL 60 MG LA CAP PO SCH (09:08)
[2016-10-06] MEDS: GABAPENTIN 300 MG CAP PO SCH ×2 (09:08→20:12)
[2016-10-06] MEDS: OMEPRAZOLE 20 MG CAP PO SCH (09:08)
[2016-10-06] MEDS: buPROPion **XL** TABLET 150MG (WELLBUTRIN XL) PO SCH (09:09)
[2016-10-06] MEDS: oxyCODONE 5MG TAB PO PRN ×2 (09:10→18:10)
[2016-10-06 18:00] VITALS: BP 139/64
[2016-10-06] MEDS: MIRTAZAPINE 15 MG TAB PO SCH (20:12)
[2016-10-06] MEDS: ATORVASTATIN 20 MG TAB PO SCH (20:12)
[2016-10-07] MEDS: LEVOTHYROXINE 0.1 MG TAB (100 MCG) PO SCH (06:10)
[2016-10-07 06:26] VITALS: BP 128/78
--- NOTE | 2016-10-07 08:38 | CR.PDOC ---
[facility] Pain Clinic Consultation General Date of Consultation: 10/04/16 Chief Complaint The patient is a 36-year-old male admitted with a reason for visit of Major Depression. Pain management is asked to see in regards to his continued right arm pain. History of Present Illness Brad KaplanXavin is a 36-year-old gentleman known to our practice as we have seen him on his last admission. He has been dealing with a wound to the right upper arm and continued pain in her of neuropathic etiology in the right hand. Pain management is asked to see to begin a weaning process of his opioids. Did meet with On this day. 10/04/2016 and he is in agreement that at this time to begin weaning off his opioids. He states that currently he is only having pain in the right hand. He notes that the wound pain in the right upper arm and deltoid has almost completely resolved. He notes that he has developed some improved movement in the right hand and wrist, but that this is still uncomfortable. He describes pain as a squeezing and burning sensation. He states he does not believe it will be difficult to wean from his opioids. He also reports that he was not restarted on his gabapentin during this admission. He would like to restart this medication. Home Medications Scheduled (Clindacin-P) 1 % Pad, 1 % EX BID, (Reported) APPLIES TO FACE Atorvastatin Calcium (Lipitor) 20 Mg Tab, 20 MG PO QHS, (Reported) Bupropion Hcl (Bupropion HCl Xl) 150 Mg Tab, 150 MG PO DAILY, (Reported) Clonazepam (Klonopin) 1 Mg Tab, 1 MG PO Q8H, (Reported) Gabapentin (Gabapentin) 800 Mg Tab, 800 MG PO BID, (Reported) Levothyroxine Sodium (Synthroid) 100 Mcg Tab, 100 MCG PO DAILY, (Reported) Methylphenidate HCl (Ritalin) 20 Mg Tab, 20 MG PO TID, (Reported) TAKES AT 0900,1300,1700 Omeprazole (Prilosec) 20 Mg Cap, 20 MG PO DAILY, (Reported) Paroxetine Hydrochloride (Paxil) 40 Mg Tab, 40 MG PO DAILY for DEPRESSION, ( Reported) Propranolol HCl (Propranolol HCl ER) 120 Mg Cap, 120 MG PO DAILY for BLOOD PRESSURE, (Reported) Scheduled PRN Oxycodone Hcl (Oxycodone HCl) 20 Mg Tab, 20 MG PO Q6H PRN for PAIN, (Reported) Trazodone HCl (Trazodone HCl) 100 Mg Tab, 100 MG PO QHSP PRN for INSOMNIA, ( Reported) Allergies Coded Allergies: Haloperidol (Verified Adverse Reaction, Severe, SEVERE DYSTONIA, 09/26/16) Risperidone (Verified Adverse Reaction, Severe, SEVERE DYSTONIA, 09/26/16) Ziprasidone (Verified Adverse Reaction, Severe, SEVERE DYSTONIA, 09/26/16) Social History Social History Denies tobacco, alcohol, or illicit substance abuse. Review of Systems Subjective Skin: Reports: other (large bandage noted right deltoid. Brace skin area noted over right biceps. No other rashes or lesions) Pulmonary: Reports: other (denies cough, sore throat, swollen glands) Cardiovascular: Reports: other (denies chest pain) Gastrointestinal: Reports: other (denies diarrhea or constipation) Musculoskeletal: Reports: other (notes generalized burning pain primarily limited to the right hand and wrist.) Neurological: Reports: other (reports decreased sensation right hand and wrist. ) Psych: Reports: other (as per psychiatry.) Physical Examination Physical Examination Vital Signs/I&O Vital Signs Date Time Temp Pulse Resp B/P (MAP) Pulse Ox O2 Delivery O2 Flow Rate FiO2 10/07/16 06:26 97.4 51 18 128/78 (95) Room Air Neck Exam: Positive: Full range of motion, Negative: Lymphadenopathy, Thyromegaly Chest Exam: Positive: Clear to auscultation, Negative: Wheezing, Rales Heart Exam: Positive: Regular rate and rhythm, Normal S1, S2, Negative: Murmurs, Rubs Extremity Exam: Positive: Other (1+radial pulse right side, no edema. Able to touch thumb to all fingers. Decreased range of motion with wrist flexion and extension.) Neuro Exam: Positive: Other (hypersensitivity is reported to light touch over right hand, both dorsal and palmar surfaces, answering change noted over the left.) Assessment 1. Right arm pain status post wound to the right upper arm and persistent neuropathic pain right hand and wrist Recommendation and Plan At this time. I will take the liberty of decreasing the oxycodone to 15 mg IR every 6 hours when necessary pain. Would recommend decreasing by 5 mg each dose every 3 days. That is on 10/07/2016, with decreased to 10 mg every 6 hours when necessary, then to 5 mg every 6 hours when necessary after an additional 3 days. I did also add clonidine 0.1 mg by mouth every 6-8 hours when necessary withdrawal symptoms. He did also restart gabapentin 300 mg twice a day. We'll plan to see him in follow-up should there be a need. Thank you AIDA eMdina , for allowing us to participate in the care of your patient, Brad Young. Should you have any questions we will be glad to discuss this with you at any time please contact us here at the pain center at [phone]. Magnolia Apodaca October 07, 2016 08:38
[2016-10-07] MEDS: PARoxetine 20 MG TAB PO SCH (09:13)
[2016-10-07] MEDS: GABAPENTIN 300 MG CAP PO SCH ×2 (09:13→20:11)
[2016-10-07] MEDS: PROPRANOLOL 60 MG LA CAP PO SCH (09:13)
[2016-10-07] MEDS: buPROPion **XL** TABLET 150MG (WELLBUTRIN XL) PO SCH (09:13)
[2016-10-07] MEDS: OMEPRAZOLE 20 MG CAP PO SCH (09:13)
[2016-10-07] MEDS: oxyCODONE 5MG TAB PO PRN ×2 (09:55→16:03)
--- NOTE | 2016-10-07 13:44 | MHIPNPDOC ---
[facility] Progress Note Progress Note DATE OF SERVICE: 10/07/16 HISTORY: day12 of admission VITAL SIGNS: See below. NEW TEST RESULTS: na (Pain consult completed) reviewed. CURRENT MEDICATIONS: See below. MENTAL STATUS EXAMINATION: Patient is a 36-year old male, who is dressed in a sweater and hospital pj bottoms, appears tired, making good eye contact. Speech: Is spontaneous Language skills are intact Thought processes including: goal directed, logical Thought content: c/o night terrors, disturbed sleep Abstract reasoning, and computation: good Description of associations: good. Description of abnormal or psychotic thoughts: reported intermittent thoughts of suicide to nursing staff - related to poor sleep and night terrors. Judgment: fair Insight: fair. Orientation: oriented in all spheres Recent and remote memory: intact Attention span and concentration: adequate Fund of knowledge: full Mood: depressed Affect: anxious. DIAGNOSES: 1. MDD, severe, recurrent without psychotic features. 2. Sedative, hypnotic and opiate dependence 3. ADHD by history 4. PTSD by history 5. Panic disorder by history 6. Alcohol dependence in remission ASSESSMENT:Pt reports having a "rough weekend". Since starting the mirtazapine he has been having night terrors. His roommate has reported that he talks and yells, and swears in his sleep. In the past Brad has done well with Inderal IR at but insurance stopped paying for it in that formulation as an outpatient. He also takes Inderal LA in the a.m. for HTN. Pt also felt badly over the weekend since it was Mother's Day and he felt guilty over what he has put his mother through. Pt's right hand appears less swollen than last week. It appears pinkish, not red in color. Pt can state that swelling is less and hand function is improving. He is in agreement with the recent reduction of his oxycodone. Currently pain is under control. He is starting gabapentin as well for pain control. MANAGEMENT PLAN: Pt will be ordered propranolol at hs (Inderal 20 mg IR) and mirtazapine will be held for one day at his request to see if this helps with night terrors. Pt was encouraged not to be so hard on himself and to release himself from his guilt. We discussed that he would not be sent to rehab if he does not want to go or does not agree with that recommendation. We are hopeful that TLS will have a placement but we are sure how soon that will happen. Pt expressed he would not feel safe returning to his apartment if discharged while waiting for a TLS residence. He feels he would become suicidal right away. Pt continues to participate in activities on the unit. He needs sometime to rest today due to his lack of sleep and anxiety due to night terrors. TIME SPENT: 30 minutes. Vital Signs Vital Signs Date Time Temp Pulse Resp B/P (MAP) Pulse Ox O2 Delivery O2 Flow Rate FiO2 10/07/16 10:50 18 10/07/16 09:13 51 128/78 10/07/16 06:26 97.4 Room Air Current Medications Current Medications Acetaminophen (Tylenol Tab) 650 mg Q6HP PRN PO HEADACHE or DISCOMFORT Last administered on 10/03/16 19:17; Start 09/26/16 at 19:00; Stop 10/26/16 at 18:59 Al Hydrox/Mg Hydrox/Simethicone (Mylanta) 30 ml Q4HP PRN PO HEARTBURN/ INDIGESTION; Start 09/26/16 at 19:00; Stop 10/26/16 at 18:59 Atorvastatin Calcium (Lipitor) 20 mg QHS PO Last administered on 10/06/16 20: 12; Start 09/27/16 at 21:00; Stop 10/27/16 at 20:59 Bupropion HCl (Wellbutrin Xl) 150 mg QAM PO Last administered on 10/07/16 09: 13; Start 09/27/16 at 09:00; Stop 10/27/16 at 08:59 Clonidine HCl (Catapres) 0.1 mg TID PRN PO withdrawal symptoms; Start 10/04/16 at 14:15; Stop 11/03/16 at 14:14 Gabapentin (Neurontin) 300 mg BID PO Last administered on 10/07/16 09:13; Start 10/04/16 at 09:00; Stop 11/03/16 at 08:59 Home Med (Med Rec Complete!) ASDIRECTED XX ; Start 09/26/16 at 19:00; Stop at 19:01; Status DC Hydroxyzine HCl (Atarax) 25 mg TIDP PRN PO Anxiety; Start 09/26/16 at 19:00; Stop 10/26/16 at 18:59 Levothyroxine Sodium (Synthroid) 0.1 mg DAILY@0600 PO Last administered on 10/07 06:10; Start 09/28/16 at 06:00; Stop 10/28/16 at 05:59 Magnesium Hydroxide (Milk Of Magnesia) 30 ml DAILYPRN PRN PO CONSTIPATION; Start 09/26/16 at 19:00; Stop 10/26/16 at 18:59 Mirtazapine (Remeron) 15 mg QHS PO Last administered on 10/06/16 20:12; Start 10/02/16 at 21:00; Stop 11/01/16 at 20:59; Status Future hold Non-Formulary Medication ( See Comment Field Below ) SEE COMMENTS SECTION 1T @10 XX ; Start 09/29/16 at 10:00; Stop 09/30/16 at 09:59; Status UNV Non-Formulary Medication ( See Comment Field Below ) SEE LABEL COMMENTS DAILY XX ; Start 09/27/16 at 09:00; Stop 09/27/16 at 12:07; Status DC Non-Formulary Medication ( See Comment Field Below ) SEE LABEL COMMENTS SECTION 1T@10 XX Last administered on 09/29/16 09:55; Start 09/29/16 at 10:00; Stop 09/29/16 at 23:59; Status DC Omeprazole (PriLOSEC) 20 mg DAILY PO Last administered on 10/07/16 09:13; Start 09/28/16 at 09:00; Stop 10/28/16 at 08:59 Oxycodone HCl (Roxicodone, Oxyir) 15 mg Q6HP PRN PO SEVERE PAIN (PS 8-10) Last administered on 10/07/16 09:55; Start 10/04/16 at 14:15; Stop 10/11/16 at 14:14 Oxycodone HCl (Roxicodone, Oxyir) 20 mg Q6HP PRN PO PAIN Last administered on 09:18; Start 09/27/16 at 10:45; Stop 10/04/16 at 14:07; Status DC Paroxetine HCl (PAXil) 40 mg DAILY PO Last administered on 10/07/16 09:13; Start 09/27/16 at 09:00; Stop 10/27/16 at 08:59 Propranolol HCl (Inderal La) 120 mg DAILY PO Last administered on 10/07/16 09: 13; Start 09/28/16 at 09:00; Stop 10/28/16 at 08:59 Sertraline HCl (Zoloft) 50 mg QAM PO ; Start 09/27/16 at 09:00; Stop 10/27/16 at 08:59; Status Cancel Trazodone HCl (Desyrel) 25 mg QHSP PRN PO INSOMNIA; Start 09/26/16 at 23:30; Stop 10/26/16 at 23:29; Status Cancel Trazodone HCl (Desyrel) 50 mg QHSP PRN PO INSOMNIA Last administered on 21:47; Start 09/26/16 at 19:00; Stop 09/26/16 at 23:16; Status DC Trazodone HCl (Desyrel) 100 mg QHSP PRN PO INSOMNIA Last administered on 19:58; Start 09/26/16 at 23:30; Stop 10/01/16 at 12:38; Status DC Trazodone HCl (Desyrel) 150 mg QHSP PRN PO INSOMNIA Last administered on 20:13; Start 10/01/16 at 12:45; Stop 10/02/16 at 10:14; Status DC Tuberculin PPD (Aplisol, Ppd) 5 units 1T@10 ID Last administered on 09/27/16 16 :23; Start 09/27/16 at 10:00; Stop 09/27/16 at 23:59; Status DC Allergies Coded Allergies: Haloperidol (Verified Adverse Reaction, Severe, SEVERE DYSTONIA, 09/26/16) Risperidone (Verified Adverse Reaction, Severe, SEVERE DYSTONIA, 09/26/16) Ziprasidone (Verified Adverse Reaction, Severe, SEVERE DYSTONIA, 09/26/16) Divina Adame October 07, 2016 13:44
[2016-10-07 18:00] VITALS: BP 111/58
[2016-10-07] MEDS: ATORVASTATIN 20 MG TAB PO SCH (20:11)
[2016-10-07] MEDS ORDERED: PROPRANOLOL 20 MG TAB PO ONE (21:00)
[2016-10-08] MEDS: LEVOTHYROXINE 0.1 MG TAB (100 MCG) PO SCH (06:08)
[2016-10-08 06:18] VITALS: BP 135/74
[2016-10-08] MEDS: buPROPion **XL** TABLET 150MG (WELLBUTRIN XL) PO SCH (09:17)
[2016-10-08] MEDS: GABAPENTIN 300 MG CAP PO SCH ×2 (09:17→21:17)
[2016-10-08] MEDS: OMEPRAZOLE 20 MG CAP PO SCH (09:17)
[2016-10-08] MEDS: PARoxetine 20 MG TAB PO SCH (09:17)
[2016-10-08] MEDS: PROPRANOLOL 60 MG LA CAP PO SCH (09:18)
[2016-10-08] MEDS: oxyCODONE 5MG TAB PO PRN ×2 (09:19→17:07)
--- NOTE | 2016-10-08 15:47 | MHIPNPDOC ---
[facility] Progress Note Progress Note DATE OF SERVICE: 10/08/16 HISTORY: day13 of admission, awaiting placement VITAL SIGNS: See below. NEW TEST RESULTS: na CURRENT MEDICATIONS: See below. MENTAL STATUS EXAMINATION: Patient is a 36-year old male, who is wearing hospital attire, lying in bed, tired, no sleep, cooperative Speech: Is spontaneous Language skills are good Thought processes including: goal directed Thought content: appropriate. Abstract reasoning, and computation: good. Description of associations: good. Description of abnormal or psychotic thoughts: no psychotic symptoms, some fleeting thoughts of suicide due to sleep disturbance and night terrors. Judgment: good Insight: good. Orientation: oriented in all spheres. Recent and remote memory: intact Attention span and concentration: poor, secondary to insomnia Fund of knowledge: full. Mood:"very tired, exhausted". Affect: congruent. DIAGNOSES: 1. MDD, severe, recurrent 2. sedative, hypnotic and opiate dependency 3. PTSD by history 4. ADHD by history 5. Panic disorder by history 6. Alcohol dependence in remission ASSESSMENT:pt was very honest talking to [place] habitat conservation planner today. He admitted his reliance and abuse on prescription controlled substances. He mentioned to her that [facility] a good [facility] program and he would like treatment there. We will do a referral and see if he can get in. He is compliant with medication however last night he asked to have the mirtazapine held and just use the Inderal/propranolol for night terrors and he did not sleep all night. He is very tired today and spent much of the day in bed. Mirtazapine will not be held tonight. MANAGEMENT PLAN: The wait for his first [place] choice [place] [facility] [place] could be months. He is 7th on the list. He presented another option for rehab which we have been hoping for. We will see if he can get admitted to help his opiate, benzo and stimulant addictions and misuse. Praise given to pt for being honest. TIME SPENT: 30 minutes. Vital Signs Vital Signs Date Time Temp Pulse Resp B/P (MAP) Pulse Ox O2 Delivery O2 Flow Rate FiO2 10/08/16 10:00 18 10/08/16 09:18 80 136/72 10/08/16 06:18 97.3 Room Air Current Medications Current Medications Acetaminophen (Tylenol Tab) 650 mg Q6HP PRN PO HEADACHE or DISCOMFORT Last administered on 10/03/16 19:17; Start 09/26/16 at 19:00; Stop 10/26/16 at 18:59 Al Hydrox/Mg Hydrox/Simethicone (Mylanta) 30 ml Q4HP PRN PO HEARTBURN/ INDIGESTION; Start 09/26/16 at 19:00; Stop 10/26/16 at 18:59 Atorvastatin Calcium (Lipitor) 20 mg QHS PO Last administered on 10/07/16 20: 11; Start 09/27/16 at 21:00; Stop 10/27/16 at 20:59 Bupropion HCl (Wellbutrin Xl) 150 mg QAM PO Last administered on 10/08/16 09: 17; Start 09/27/16 at 09:00; Stop 10/27/16 at 08:59 Clonidine HCl (Catapres) 0.1 mg TID PRN PO withdrawal symptoms; Start 10/04/16 at 14:15; Stop 11/03/16 at 14:14 Gabapentin (Neurontin) 300 mg BID PO Last administered on 10/08/16 09:17; Start 10/04/16 at 09:00; Stop 11/03/16 at 08:59 Home Med (Med Rec Complete!) ASDIRECTED XX ; Start 09/26/16 at 19:00; Stop at 19:01; Status DC Hydroxyzine HCl (Atarax) 25 mg TIDP PRN PO Anxiety; Start 09/26/16 at 19:00; Stop 10/26/16 at 18:59 Levothyroxine Sodium (Synthroid) 0.1 mg DAILY@0600 PO Last administered on 10/08 06:08; Start 09/28/16 at 06:00; Stop 10/28/16 at 05:59 Magnesium Hydroxide (Milk Of Magnesia) 30 ml DAILYPRN PRN PO CONSTIPATION; Start 09/26/16 at 19:00; Stop 10/26/16 at 18:59 Mirtazapine (Remeron) 15 mg QHS PO Last administered on 10/06/16 20:12; Start 10/02/16 at 21:00; Stop 10/08/16 at 09:23; Status DC Mirtazapine (Remeron) 15 mg QHS PO ; Start 10/08/16 at 21:00; Stop 11/07/16 at 20:59 Non-Formulary Medication ( See Comment Field Below ) SEE COMMENTS SECTION 1T @10 XX ; Start 09/29/16 at 10:00; Stop 09/30/16 at 09:59; Status UNV Non-Formulary Medication ( See Comment Field Below ) SEE LABEL COMMENTS DAILY XX ; Start 09/27/16 at 09:00; Stop 09/27/16 at 12:07; Status DC Non-Formulary Medication ( See Comment Field Below ) SEE LABEL COMMENTS SECTION 1T@10 XX Last administered on 09/29/16 09:55; Start 09/29/16 at 10:00; Stop 09/29/16 at 23:59; Status DC Omeprazole (PriLOSEC) 20 mg DAILY PO Last administered on 10/08/16 09:17; Start 09/28/16 at 09:00; Stop 10/28/16 at 08:59 Oxycodone HCl (Roxicodone, Oxyir) 15 mg Q6HP PRN PO SEVERE PAIN (PS 8-10) Last administered on 10/08/16 09:19; Start 10/04/16 at 14:15; Stop 10/11/16 at 14:14 Oxycodone HCl (Roxicodone, Oxyir) 20 mg Q6HP PRN PO PAIN Last administered on 09:18; Start 09/27/16 at 10:45; Stop 10/04/16 at 14:07; Status DC Paroxetine HCl (PAXil) 40 mg DAILY PO Last administered on 10/08/16 09:17; Start 09/27/16 at 09:00; Stop 10/27/16 at 08:59 Propranolol HCl (Inderal La) 120 mg DAILY PO Last administered on 10/08/16 09: 18; Start 09/28/16 at 09:00; Stop 10/28/16 at 08:59 Propranolol HCl (Inderal) 10 mg QHS PO ; Start 10/08/16 at 21:00; Stop 11/07/16 at 20:59 Sertraline HCl (Zoloft) 50 mg QAM PO ; Start 09/27/16 at 09:00; Stop 10/27/16 at 08:59; Status Cancel Trazodone HCl (Desyrel) 25 mg QHSP PRN PO INSOMNIA; Start 09/26/16 at 23:30; Stop 10/26/16 at 23:29; Status Cancel Trazodone HCl (Desyrel) 50 mg QHSP PRN PO INSOMNIA Last administered on 21:47; Start 09/26/16 at 19:00; Stop 09/26/16 at 23:16; Status DC Trazodone HCl (Desyrel) 100 mg QHSP PRN PO INSOMNIA Last administered on 19:58; Start 09/26/16 at 23:30; Stop 10/01/16 at 12:38; Status DC Trazodone HCl (Desyrel) 150 mg QHSP PRN PO INSOMNIA Last administered on 20:13; Start 10/01/16 at 12:45; Stop 10/02/16 at 10:14; Status DC Tuberculin PPD (Aplisol, Ppd) 5 units 1T@10 ID Last administered on 09/27/16 16 :23; Start 09/27/16 at 10:00; Stop 09/27/16 at 23:59; Status DC Allergies Coded Allergies: Haloperidol (Verified Adverse Reaction, Severe, SEVERE DYSTONIA, 09/26/16) Risperidone (Verified Adverse Reaction, Severe, SEVERE DYSTONIA, 09/26/16) Ziprasidone (Verified Adverse Reaction, Severe, SEVERE DYSTONIA, 09/26/16) Divina Adame October 08, 2016 15:46
[2016-10-08 18:19] VITALS: BP 123/55
[2016-10-08] MEDS ORDERED: PROPRANOLOL 10 MG TAB PO SCH (21:00)
[2016-10-08] MEDS: MIRTAZAPINE 15 MG TAB PO SCH (21:17)
[2016-10-08] MEDS: ATORVASTATIN 20 MG TAB PO SCH (21:17)
[2016-10-09] MEDS: LEVOTHYROXINE 0.1 MG TAB (100 MCG) PO SCH (06:10)
[2016-10-09 06:19] VITALS: BP 122/67
[2016-10-09] MEDS: PARoxetine 20 MG TAB PO SCH (08:56)
[2016-10-09] MEDS: GABAPENTIN 300 MG CAP PO SCH ×2 (08:56→20:11)
[2016-10-09] MEDS: buPROPion **XL** TABLET 150MG (WELLBUTRIN XL) PO SCH (08:56)
[2016-10-09] MEDS: OMEPRAZOLE 20 MG CAP PO SCH (08:56)
[2016-10-09] MEDS: PROPRANOLOL 60 MG LA CAP PO SCH (08:56)
[2016-10-09] MEDS: oxyCODONE 5MG TAB PO PRN ×2 (08:57→17:37)
--- NOTE | 2016-10-09 14:26 | MHIPNPDOC ---
[facility] Progress Note Progress Note DATE OF SERVICE: 10/09/16 HISTORY: Day 14 of admission. Pt will be referred to [facility] for inpatient treatment, per his request - [place] program. VITAL SIGNS: See below. NEW TEST RESULTS: nothing new CURRENT MEDICATIONS: See below. MENTAL STATUS EXAMINATION: Patient is a 36-year old male, who is dressed in hospital attire, shaved head, clean with good eye contact. Speech: Is fluent Turkmen, spontaneous Language skills are intact Thought processes including: goal directed Thought content: appropriate mostly but continues to have thoughts of suicide that lack intent or plan. Abstract reasoning, and computation: good. Description of associations: good. Description of abnormal or psychotic thoughts: denies psychotic symptoms. Judgment: fair Insight: good. Orientation: oriented in all spheres Recent and remote memory: good. Attention span and concentration: adequate Fund of knowledge: adequate Mood: depressed. Affect:congruent. DIAGNOSES: 1. MDD, severe, recurrent, without psychotic features. 2. sedative, hypnotic and opiate dependence 3. ADHD by history 4. Panic disorder by history 5. PTSD by history 6. Alcohol dependence in full remission ASSESSMENT: Pt is improving slowly and communicating needs appropriately. Sleep was a little improved last night in that he slept 4-5 hours. He is attending programing when he feels he has the energy. It has been more difficult for him to do so the days he misses sleep. Pt engages with few select peers. He is out of bed more today than earlier in the week. His hs Inderal was 10 mg last night and he asked to have it raised to 20 mg. He denies any s/s of hypotension on the higher dose. Pt has not c/o withdrawal symptoms with lower dose of opiate pain medication. MANAGEMENT PLAN: Continue paxil, wellbutrin and mirtazapine. Encourage engagement in discussion about improved coping skills, substance abuse recovery and methods to improve mood. Hand and arm pain is resolving. Pt will start lower dose of oxycodone today. It was due to be decreased on the and this did not happen due to change is medical professional's role. Addressed by medical underwriter today as a med being tapered for substance abuse, not a medical med for treatment. TIME SPENT: 30 minutes. Vital Signs Vital Signs Date Time Temp Pulse Resp B/P (MAP) Pulse Ox O2 Delivery O2 Flow Rate FiO2 10/09/16 09:47 18 5/17/17 06:19 97.7 80 122/67 (85) Room Air Current Medications Current Medications Acetaminophen (Tylenol Tab) 650 mg Q6HP PRN PO HEADACHE or DISCOMFORT Last administered on 10/03/16 19:17; Start 09/26/16 at 19:00; Stop 10/26/16 at 18:59 Al Hydrox/Mg Hydrox/Simethicone (Mylanta) 30 ml Q4HP PRN PO HEARTBURN/ INDIGESTION; Start 09/26/16 at 19:00; Stop 10/26/16 at 18:59 Atorvastatin Calcium (Lipitor) 20 mg QHS PO Last administered on 10/08/16 21: 17; Start 09/27/16 at 21:00; Stop 10/27/16 at 20:59 Bupropion HCl (Wellbutrin Xl) 150 mg QAM PO Last administered on 10/09/16 08: 56; Start 09/27/16 at 09:00; Stop 10/27/16 at 08:59 Clonidine HCl (Catapres) 0.1 mg TID PRN PO withdrawal symptoms; Start 10/04/16 at 14:15; Stop 11/03/16 at 14:14 Gabapentin (Neurontin) 300 mg BID PO Last administered on 10/09/16 08:56; Start 10/04/16 at 09:00; Stop 11/03/16 at 08:59 Home Med (Med Rec Complete!) ASDIRECTED XX ; Start 09/26/16 at 19:00; Stop at 19:01; Status DC Hydroxyzine HCl (Atarax) 25 mg TIDP PRN PO Anxiety; Start 09/26/16 at 19:00; Stop 10/26/16 at 18:59 Levothyroxine Sodium (Synthroid) 0.1 mg DAILY@0600 PO Last administered on 10/09 06:10; Start 09/28/16 at 06:00; Stop 10/28/16 at 05:59 Magnesium Hydroxide (Milk Of Magnesia) 30 ml DAILYPRN PRN PO CONSTIPATION; Start 09/26/16 at 19:00; Stop 10/26/16 at 18:59 Mirtazapine (Remeron) 15 mg QHS PO Last administered on 10/06/16 20:12; Start 10/02/16 at 21:00; Stop 10/08/16 at 09:23; Status DC Mirtazapine (Remeron) 15 mg QHS PO Last administered on 10/08/16 21:17; Start 10/08/16 at 21:00; Stop 11/07/16 at 20:59 Non-Formulary Medication ( See Comment Field Below ) SEE COMMENTS SECTION 1T @10 XX ; Start 09/29/16 at 10:00; Stop 09/30/16 at 09:59; Status UNV Non-Formulary Medication ( See Comment Field Below ) SEE LABEL COMMENTS DAILY XX ; Start 09/27/16 at 09:00; Stop 09/27/16 at 12:07; Status DC Non-Formulary Medication ( See Comment Field Below ) SEE LABEL COMMENTS SECTION 1T@10 XX Last administered on 09/29/16 09:55; Start 09/29/16 at 10:00; Stop 09/29/16 at 23:59; Status DC Omeprazole (PriLOSEC) 20 mg DAILY PO Last administered on 10/09/16 08:56; Start 09/28/16 at 09:00; Stop 10/28/16 at 08:59 Oxycodone HCl (Roxicodone, Oxyir) 10 mg Q6HP PRN PO SEVERE PAIN (PS 8-10); Start 10/09/16 at 14:15; Stop 10/16/16 at 14:14; Status UNV Oxycodone HCl (Roxicodone, Oxyir) 15 mg Q6HP PRN PO SEVERE PAIN (PS 8-10) Last administered on 10/09/16 08:57; Start 10/04/16 at 14:15; Stop 10/09/16 at 14:16 ; Status DC Oxycodone HCl (Roxicodone, Oxyir) 20 mg Q6HP PRN PO PAIN Last administered on 09:18; Start 09/27/16 at 10:45; Stop 10/04/16 at 14:07; Status DC Paroxetine HCl (PAXil) 40 mg DAILY PO Last administered on 10/09/16 08:56; Start 09/27/16 at 09:00; Stop 10/27/16 at 08:59 Propranolol HCl (Inderal La) 120 mg DAILY PO Last administered on 10/09/16 08: 56; Start 09/28/16 at 09:00; Stop 10/28/16 at 08:59 Propranolol HCl (Inderal) 10 mg QHS PO Last administered on 10/08/16 21:17; Start 10/08/16 at 21:00; Stop 10/09/16 at 14:12; Status DC Propranolol HCl (Inderal) 20 mg QHS PO ; Start 10/09/16 at 21:00; Stop 11/08/16 at 20:59 Sertraline HCl (Zoloft) 50 mg QAM PO ; Start 09/27/16 at 09:00; Stop 10/27/16 at 08:59; Status Cancel Trazodone HCl (Desyrel) 25 mg QHSP PRN PO INSOMNIA; Start 09/26/16 at 23:30; Stop 10/26/16 at 23:29; Status Cancel Trazodone HCl (Desyrel) 50 mg QHSP PRN PO INSOMNIA Last administered on 21:47; Start 09/26/16 at 19:00; Stop 09/26/16 at 23:16; Status DC Trazodone HCl (Desyrel) 100 mg QHSP PRN PO INSOMNIA Last administered on 19:58; Start 09/26/16 at 23:30; Stop 10/01/16 at 12:38; Status DC Trazodone HCl (Desyrel) 150 mg QHSP PRN PO INSOMNIA Last administered on 20:13; Start 10/01/16 at 12:45; Stop 10/02/16 at 10:14; Status DC Tuberculin PPD (Aplisol, Ppd) 5 units 1T@10 ID Last administered on 09/27/16 16 :23; Start 09/27/16 at 10:00; Stop 09/27/16 at 23:59; Status DC Allergies Coded Allergies: Haloperidol (Verified Adverse Reaction, Severe, SEVERE DYSTONIA, 09/26/16) Risperidone (Verified Adverse Reaction, Severe, SEVERE DYSTONIA, 09/26/16) Ziprasidone (Verified Adverse Reaction, Severe, SEVERE DYSTONIA, 09/26/16) Divina Adame October 09, 2016 14:26
[2016-10-09 18:11] VITALS: BP 138/94
[2016-10-09] MEDS: ATORVASTATIN 20 MG TAB PO SCH (20:11)
[2016-10-09] MEDS: MIRTAZAPINE 15 MG TAB PO SCH (20:11)
[2016-10-09] MEDS: PROPRANOLOL 20 MG TAB PO SCH (20:12)
[2016-10-10] MEDS: LEVOTHYROXINE 0.1 MG TAB (100 MCG) PO SCH (06:07)
[2016-10-10 06:33] VITALS: BP 160/91
[2016-10-10] MEDS: oxyCODONE 5MG TAB PO PRN ×2 (06:33→15:44)
[2016-10-10] MEDS: GABAPENTIN 300 MG CAP PO SCH ×2 (08:20→20:27)
[2016-10-10] MEDS: buPROPion **XL** TABLET 150MG (WELLBUTRIN XL) PO SCH (08:21)
[2016-10-10] MEDS: OMEPRAZOLE 20 MG CAP PO SCH (08:22)
[2016-10-10] MEDS: PROPRANOLOL 60 MG LA CAP PO SCH (08:22)
[2016-10-10] MEDS: PARoxetine 20 MG TAB PO SCH (08:22)
--- NOTE | 2016-10-10 13:07 | MHIPNPDOC ---
[facility] Progress Note Progress Note DATE OF SERVICE: 10/10/16 HISTORY: Day 15 of admission VITAL SIGNS: See below. NEW TEST RESULTS:none CURRENT MEDICATIONS: See below. MENTAL STATUS EXAMINATION: Patient is a 36 year old male, who is appropriately attired, makes good eye contact, good hygiene. Speech: Is spontaneous Language skills are good Thought processes including: grandiose at time when interacting with staff Thought content:appropriate. Abstract reasoning, and computation:good. Description of associations: good. Description of abnormal or psychotic thoughts: no psychotic symptoms, periodic intermittent thoughts of self-harm. Judgment: fair Insight: fair. Orientation: well oriented in all spheres. Recent and remote memory: good Attention span and concentration: varies depending on pain and on sleep Fund of knowledge: adequate Mood: depressed and anxious. Affect: anxious DIAGNOSES: 1. MDD, severe, recurrent without psychotic features. 2. sedative, hypnotic and opiate dependence 3. ADHD by history 4. PTSD by history 5. Alcohol dependence in remission 6. Panic disorder by history ASSESSMENT:pt slept much better last night, first time this week he got 7 plus hours of sleep. Pt is visible on the unit today after keeping to his room much of the week. Right hand continues to show less swelling and a more natural color , not so red. Pt is attending groups but is not offering much. Mostly listens but at least is out of bed. Pt is apprehensive about discharge as we have not heard from any of the places he is interest in as to acceptance of him or not. Staff provides much empathy and support. No side effects observed or reported to medications. He responds well to support offered. He is healthy and eating well. MANAGEMENT PLAN: no changes in meds at this time. Continue mirtazapine and inderal at for night terrors and insomnia. Pt appears depressed but he says this is not unusual for him. He often looks like he is depressed even when he feels good. TIME SPENT: 30 minutes. Vital Signs Vital Signs Date Time Temp Pulse Resp B/P (MAP) Pulse Ox O2 Delivery O2 Flow Rate FiO2 10/10/16 08:22 55 160/91 10/10/16 07:03 18 10/10/16 06:33 98.6 10/09/16 06:19 Room Air Current Medications Current Medications Acetaminophen (Tylenol Tab) 650 mg Q6HP PRN PO HEADACHE or DISCOMFORT Last administered on 10/03/16 19:17; Start 09/26/16 at 19:00; Stop 10/26/16 at 18:59 Al Hydrox/Mg Hydrox/Simethicone (Mylanta) 30 ml Q4HP PRN PO HEARTBURN/ INDIGESTION; Start 09/26/16 at 19:00; Stop 10/26/16 at 18:59 Atorvastatin Calcium (Lipitor) 20 mg QHS PO Last administered on 10/09/16 20: 11; Start 09/27/16 at 21:00; Stop 10/27/16 at 20:59 Bupropion HCl (Wellbutrin Xl) 150 mg QAM PO Last administered on 10/10/16 08: 21; Start 09/27/16 at 09:00; Stop 10/27/16 at 08:59 Clonidine HCl (Catapres) 0.1 mg TID PRN PO withdrawal symptoms; Start 10/04/16 at 14:15; Stop 11/03/16 at 14:14 Gabapentin (Neurontin) 300 mg BID PO Last administered on 10/10/16 08:20; Start 10/04/16 at 09:00; Stop 11/03/16 at 08:59 Home Med (Med Rec Complete!) ASDIRECTED XX ; Start 09/26/16 at 19:00; Stop at 19:01; Status DC Hydroxyzine HCl (Atarax) 25 mg TIDP PRN PO Anxiety; Start 09/26/16 at 19:00; Stop 10/26/16 at 18:59 Levothyroxine Sodium (Synthroid) 0.1 mg DAILY@0600 PO Last administered on 10/10 06:07; Start 09/28/16 at 06:00; Stop 10/28/16 at 05:59 Magnesium Hydroxide (Milk Of Magnesia) 30 ml DAILYPRN PRN PO CONSTIPATION; Start 09/26/16 at 19:00; Stop 10/26/16 at 18:59 Mirtazapine (Remeron) 15 mg QHS PO Last administered on 10/06/16 20:12; Start 10/02/16 at 21:00; Stop 10/08/16 at 09:23; Status DC Mirtazapine (Remeron) 15 mg QHS PO Last administered on 10/09/16 20:11; Start 10/08/16 at 21:00; Stop 11/07/16 at 20:59 Non-Formulary Medication ( See Comment Field Below ) SEE COMMENTS SECTION 1T @10 XX ; Start 09/29/16 at 10:00; Stop 09/30/16 at 09:59; Status UNV Non-Formulary Medication ( See Comment Field Below ) SEE LABEL COMMENTS DAILY XX ; Start 09/27/16 at 09:00; Stop 09/27/16 at 12:07; Status DC Non-Formulary Medication ( See Comment Field Below ) SEE LABEL COMMENTS SECTION 1T@10 XX Last administered on 09/29/16 09:55; Start 09/29/16 at 10:00; Stop 09/29/16 at 23:59; Status DC Omeprazole (PriLOSEC) 20 mg DAILY PO Last administered on 10/10/16 08:22; Start 09/28/16 at 09:00; Stop 10/28/16 at 08:59 Oxycodone HCl (Roxicodone, Oxyir) 10 mg Q6HP PRN PO SEVERE PAIN (PS 8-10) Last administered on 10/10/16 06:33; Start 10/09/16 at 14:15; Stop 10/16/16 at 14:14 Oxycodone HCl (Roxicodone, Oxyir) 15 mg Q6HP PRN PO SEVERE PAIN (PS 8-10) Last administered on 10/09/16 08:57; Start 10/04/16 at 14:15; Stop 10/09/16 at 14:16 ; Status DC Oxycodone HCl (Roxicodone, Oxyir) 20 mg Q6HP PRN PO PAIN Last administered on 09:18; Start 09/27/16 at 10:45; Stop 10/04/16 at 14:07; Status DC Paroxetine HCl (PAXil) 40 mg DAILY PO Last administered on 10/10/16 08:22; Start 09/27/16 at 09:00; Stop 10/27/16 at 08:59 Propranolol HCl (Inderal La) 120 mg DAILY PO Last administered on 10/10/16 08: 22; Start 09/28/16 at 09:00; Stop 10/28/16 at 08:59 Propranolol HCl (Inderal) 10 mg QHS PO Last administered on 10/08/16 21:17; Start 10/08/16 at 21:00; Stop 10/09/16 at 14:12; Status DC Propranolol HCl (Inderal) 20 mg QHS PO Last administered on 10/09/16 20:12; Start 10/09/16 at 21:00; Stop 11/08/16 at 20:59 Sertraline HCl (Zoloft) 50 mg QAM PO ; Start 09/27/16 at 09:00; Stop 10/27/16 at 08:59; Status Cancel Trazodone HCl (Desyrel) 25 mg QHSP PRN PO INSOMNIA; Start 09/26/16 at 23:30; Stop 10/26/16 at 23:29; Status Cancel Trazodone HCl (Desyrel) 50 mg QHSP PRN PO INSOMNIA Last administered on 21:47; Start 09/26/16 at 19:00; Stop 09/26/16 at 23:16; Status DC Trazodone HCl (Desyrel) 100 mg QHSP PRN PO INSOMNIA Last administered on 19:58; Start 09/26/16 at 23:30; Stop 10/01/16 at 12:38; Status DC Trazodone HCl (Desyrel) 150 mg QHSP PRN PO INSOMNIA Last administered on 20:13; Start 10/01/16 at 12:45; Stop 10/02/16 at 10:14; Status DC Tuberculin PPD (Aplisol, Ppd) 5 units 1T@10 ID Last administered on 09/27/16 16 :23; Start 09/27/16 at 10:00; Stop 09/27/16 at 23:59; Status DC Allergies Coded Allergies: Haloperidol (Verified Adverse Reaction, Severe, SEVERE DYSTONIA, 09/26/16) Risperidone (Verified Adverse Reaction, Severe, SEVERE DYSTONIA, 09/26/16) Ziprasidone (Verified Adverse Reaction, Severe, SEVERE DYSTONIA, 09/26/16) Divina Adame October 10, 2016 13:07
[2016-10-10] MEDS: cloNIDine 0.1 MG TAB PO PRN (16:31)
[2016-10-10 18:00] VITALS: BP 152/76
[2016-10-10] MEDS: PROPRANOLOL 20 MG TAB PO SCH (20:27)
[2016-10-10] MEDS: ATORVASTATIN 20 MG TAB PO SCH (20:27)
[2016-10-10] MEDS: MIRTAZAPINE 15 MG TAB PO SCH (20:27)
[2016-10-11] MEDS: LEVOTHYROXINE 0.1 MG TAB (100 MCG) PO SCH (06:00)
[2016-10-11 06:32] VITALS: BP 132/69
[2016-10-11] MEDS: PARoxetine 20 MG TAB PO SCH (09:11)
[2016-10-11] MEDS: PROPRANOLOL 60 MG LA CAP PO SCH (09:12)
[2016-10-11] MEDS: OMEPRAZOLE 20 MG CAP PO SCH (09:12)
[2016-10-11] MEDS: GABAPENTIN 300 MG CAP PO SCH ×2 (09:12→20:03)
[2016-10-11] MEDS: buPROPion **XL** TABLET 150MG (WELLBUTRIN XL) PO SCH (09:12)
[2016-10-11] MEDS: oxyCODONE 5MG TAB PO PRN ×2 (09:12→17:33)
--- NOTE | 2016-10-11 11:38 | MHIPNPDOC ---
[facility] Progress Note Progress Note DATE OF SERVICE: 10/11/16 HISTORY: day 16 of admission VITAL SIGNS: See below. NEW TEST RESULTS: na CURRENT MEDICATIONS: See below. MENTAL STATUS EXAMINATION: Patient is a 36-year old male, who is wearing hospital pj's and a sweater, bald head, appears his age. Speech: Is spontaneous Language skills are good Thought processes including:linear Thought content: appropriate Abstract reasoning, and computation: good. Description of associations: good. Description of abnormal or psychotic thoughts: continues to think of suicide from time to time without intent or plan, denies psychotic symptoms. Judgment: fair Insight: fair. Orientation: good in all spheres Recent and remote memory: good Attention span and concentration: good if not in pain , currently good Fund of knowledge: full Mood: euthymic. Affect: broad. DIAGNOSES: 1. MDD, severe, recurrent, without psychotic features. 2. sedative, hypnotic and opiate dependence 3. ADHD by history 4. Panic disorder by history 5. PTSD by history 6. Alcohol dependence in full remission ASSESSMENT:Pt reports the beginning of a head cold but states his mood is good. He is participating in groups and attending to hygiene needs. He is adhering to the medication regime. No complaints of side effects. Interacts with very few peers, mostly with staff. Sleep has improved with addition of 20 mg of propranolol. Pt was worried he would be disturbing his roommate once he gets to rehab or other living situation. He awakens in a start or talks or hollers in his sleep. the propranolol stops this for him. No complaints of pain today. He is on 10 mg of oxycodone now. He has not mentioned any concerns with the lower dose. Brad reports good sleep last night. He gets a long well with his roommate. He talks about [facility] as a "great place" and is hoping he will be able to go to their [facility] program MANAGEMENT PLAN: continue Paxil, Wellbutrin and mirtazapine. TIME SPENT: 30 minutes. Vital Signs Vital Signs Date Time Temp Pulse Resp B/P (MAP) Pulse Ox O2 Delivery O2 Flow Rate FiO2 10/11/16 09:53 16 10/11/16 09:34 Room Air 10/11/16 09:12 68 146/90 10/11/16 06:32 99.0 Current Medications Current Medications Acetaminophen (Tylenol Tab) 650 mg Q6HP PRN PO HEADACHE or DISCOMFORT Last administered on 10/03/16 19:17; Start 09/26/16 at 19:00; Stop 10/26/16 at 18:59 Al Hydrox/Mg Hydrox/Simethicone (Mylanta) 30 ml Q4HP PRN PO HEARTBURN/ INDIGESTION; Start 09/26/16 at 19:00; Stop 10/26/16 at 18:59 Atorvastatin Calcium (Lipitor) 20 mg QHS PO Last administered on 10/10/16 20: 27; Start 09/27/16 at 21:00; Stop 10/27/16 at 20:59 Bupropion HCl (Wellbutrin Xl) 150 mg QAM PO Last administered on 10/11/16 09: 12; Start 09/27/16 at 09:00; Stop 10/27/16 at 08:59 Clonidine HCl (Catapres) 0.1 mg TID PRN PO withdrawal symptoms Last administered on 10/10/16 16:31; Start 10/04/16 at 14:15; Stop 11/03/16 at 14:14 Gabapentin (Neurontin) 300 mg BID PO Last administered on 10/11/16 09:12; Start 10/04/16 at 09:00; Stop 11/03/16 at 08:59 Home Med (Med Rec Complete!) ASDIRECTED XX ; Start 09/26/16 at 19:00; Stop at 19:01; Status DC Hydroxyzine HCl (Atarax) 25 mg TIDP PRN PO Anxiety; Start 09/26/16 at 19:00; Stop 10/26/16 at 18:59 Levothyroxine Sodium (Synthroid) 0.1 mg DAILY@0600 PO Last administered on 10/11 06:00; Start 09/28/16 at 06:00; Stop 10/28/16 at 05:59 Magnesium Hydroxide (Milk Of Magnesia) 30 ml DAILYPRN PRN PO CONSTIPATION; Start 09/26/16 at 19:00; Stop 10/26/16 at 18:59 Mirtazapine (Remeron) 15 mg QHS PO Last administered on 10/06/16 20:12; Start 10/02/16 at 21:00; Stop 10/08/16 at 09:23; Status DC Mirtazapine (Remeron) 15 mg QHS PO Last administered on 10/10/16 20:27; Start 10/08/16 at 21:00; Stop 11/07/16 at 20:59 Non-Formulary Medication ( See Comment Field Below ) SEE COMMENTS SECTION 1T @10 XX ; Start 09/29/16 at 10:00; Stop 09/30/16 at 09:59; Status UNV Non-Formulary Medication ( See Comment Field Below ) SEE LABEL COMMENTS DAILY XX ; Start 09/27/16 at 09:00; Stop 09/27/16 at 12:07; Status DC Non-Formulary Medication ( See Comment Field Below ) SEE LABEL COMMENTS SECTION 1T@10 XX Last administered on 09/29/16 09:55; Start 09/29/16 at 10:00; Stop 09/29/16 at 23:59; Status DC Omeprazole (PriLOSEC) 20 mg DAILY PO Last administered on 10/11/16 09:12; Start 09/28/16 at 09:00; Stop 10/28/16 at 08:59 Oxycodone HCl (Roxicodone, Oxyir) 5 mg Q6HP PRN PO PAIN; Start 10/12/16 at 14: 00; Stop 10/15/16 at 14:00 Oxycodone HCl (Roxicodone, Oxyir) 10 mg Q6HP PRN PO SEVERE PAIN (PS 8-10) Last administered on 10/11/16 09:12; Start 10/09/16 at 14:15; Stop 10/12/16 at 14:00 Oxycodone HCl (Roxicodone, Oxyir) 15 mg Q6HP PRN PO SEVERE PAIN (PS 8-10) Last administered on 10/09/16 08:57; Start 10/04/16 at 14:15; Stop 10/09/16 at 14:16 ; Status DC Oxycodone HCl (Roxicodone, Oxyir) 20 mg Q6HP PRN PO PAIN Last administered on 09:18; Start 09/27/16 at 10:45; Stop 10/04/16 at 14:07; Status DC Paroxetine HCl (PAXil) 40 mg DAILY PO Last administered on 10/11/16 09:11; Start 09/27/16 at 09:00; Stop 10/27/16 at 08:59 Propranolol HCl (Inderal La) 120 mg DAILY PO Last administered on 10/11/16 09: 12; Start 09/28/16 at 09:00; Stop 10/28/16 at 08:59 Propranolol HCl (Inderal) 10 mg QHS PO Last administered on 10/08/16 21:17; Start 10/08/16 at 21:00; Stop 10/09/16 at 14:12; Status DC Propranolol HCl (Inderal) 20 mg QHS PO Last administered on 10/10/16 20:27; Start 10/09/16 at 21:00; Stop 11/08/16 at 20:59 Sertraline HCl (Zoloft) 50 mg QAM PO ; Start 09/27/16 at 09:00; Stop 10/27/16 at 08:59; Status Cancel Trazodone HCl (Desyrel) 25 mg QHSP PRN PO INSOMNIA; Start 09/26/16 at 23:30; Stop 10/26/16 at 23:29; Status Cancel Trazodone HCl (Desyrel) 50 mg QHSP PRN PO INSOMNIA Last administered on 21:47; Start 09/26/16 at 19:00; Stop 09/26/16 at 23:16; Status DC Trazodone HCl (Desyrel) 100 mg QHSP PRN PO INSOMNIA Last administered on 19:58; Start 09/26/16 at 23:30; Stop 10/01/16 at 12:38; Status DC Trazodone HCl (Desyrel) 150 mg QHSP PRN PO INSOMNIA Last administered on 20:13; Start 10/01/16 at 12:45; Stop 10/02/16 at 10:14; Status DC Tuberculin PPD (Aplisol, Ppd) 5 units 1T@10 ID Last administered on 09/27/16 16 :23; Start 09/27/16 at 10:00; Stop 09/27/16 at 23:59; Status DC Allergies Coded Allergies: Haloperidol (Verified Adverse Reaction, Severe, SEVERE DYSTONIA, 5/4/17) Risperidone (Verified Adverse Reaction, Severe, SEVERE DYSTONIA, 09/26/16) Ziprasidone (Verified Adverse Reaction, Severe, SEVERE DYSTONIA, 09/26/16) Divina Adame October 11, 2016 11:38
[2016-10-11 18:14] VITALS: BP 132/64
[2016-10-11] MEDS: ATORVASTATIN 20 MG TAB PO SCH (20:03)
[2016-10-11] MEDS: PROPRANOLOL 20 MG TAB PO SCH (20:04)
[2016-10-11] MEDS: MIRTAZAPINE 15 MG TAB PO SCH (20:05)
[2016-10-12 06:08] VITALS: BP 138/67
[2016-10-12] MEDS: LEVOTHYROXINE 0.1 MG TAB (100 MCG) PO SCH (06:15)
[2016-10-12] MEDS: OMEPRAZOLE 20 MG CAP PO SCH (09:28)
[2016-10-12] MEDS: GABAPENTIN 300 MG CAP PO SCH ×2 (09:28→20:10)
[2016-10-12] MEDS: PARoxetine 20 MG TAB PO SCH (09:28)
[2016-10-12] MEDS: buPROPion **XL** TABLET 150MG (WELLBUTRIN XL) PO SCH (09:28)
[2016-10-12] MEDS: oxyCODONE 5MG TAB PO PRN ×2 (09:31→16:09)
[2016-10-12] MEDS: PROPRANOLOL 60 MG LA CAP PO SCH (09:31)
[2016-10-12 18:16] VITALS: BP 138/77
[2016-10-12] MEDS: ATORVASTATIN 20 MG TAB PO SCH (20:10)
[2016-10-12] MEDS: MIRTAZAPINE 15 MG TAB PO SCH (20:11)
[2016-10-12] MEDS: PROPRANOLOL 20 MG TAB PO SCH (20:12)
[2016-10-13] MEDS: LEVOTHYROXINE 0.1 MG TAB (100 MCG) PO SCH (06:09)
[2016-10-13 06:23] VITALS: BP 139/75
[2016-10-13 08:58] VITALS: BP 142/85
[2016-10-13] MEDS: PARoxetine 20 MG TAB PO SCH (09:01)
[2016-10-13] MEDS: OMEPRAZOLE 20 MG CAP PO SCH (09:01)
[2016-10-13] MEDS: oxyCODONE 5MG TAB PO PRN ×3 (09:02→21:09)
[2016-10-13] MEDS: GABAPENTIN 300 MG CAP PO SCH ×2 (09:02→20:18)
[2016-10-13] MEDS: PROPRANOLOL 60 MG LA CAP PO SCH (09:02)
[2016-10-13] MEDS: buPROPion **XL** TABLET 150MG (WELLBUTRIN XL) PO SCH (09:02)
[2016-10-13] MEDS: hydrOXYzine 25 MG TAB PO PRN (15:41)
[2016-10-13 18:00] VITALS: BP 127/76
[2016-10-13] MEDS: MIRTAZAPINE 15 MG TAB PO SCH (20:17)
[2016-10-13] MEDS: ATORVASTATIN 20 MG TAB PO SCH (20:17)
[2016-10-13] MEDS: PROPRANOLOL 20 MG TAB PO SCH (20:18)
[2016-10-13] MEDS: ACETAMINOPHEN TAB 650MG DOSE (2X325MG) PO PRN (20:19)
[2016-10-14] MEDS: LEVOTHYROXINE 0.1 MG TAB (100 MCG) PO SCH (06:14)
[2016-10-14 06:23] VITALS: BP 129/62
[2016-10-14] MEDS: buPROPion **XL** TABLET 150MG (WELLBUTRIN XL) PO SCH (08:40)
[2016-10-14] MEDS: PROPRANOLOL 60 MG LA CAP PO SCH (08:40)
[2016-10-14] MEDS: PARoxetine 20 MG TAB PO SCH (08:40)
[2016-10-14] MEDS: OMEPRAZOLE 20 MG CAP PO SCH (08:40)
[2016-10-14] MEDS: GABAPENTIN 300 MG CAP PO SCH ×2 (08:40→20:15)
--- NOTE | 2016-10-14 13:34 | MHIPNPDOC ---
[facility] Progress Note Progress Note DATE OF SERVICE: 10/14/16 HISTORY: day 19 of admission VITAL SIGNS: See below. NEW TEST RESULTS: na CURRENT MEDICATIONS: See below. MENTAL STATUS EXAMINATION: Patient is a 36 year old male, who is appropriately attired for the unit, clean shaven including his head, good eye contact. Speech: Is spontaneous Language skills are good Thought processes including: goal directed. Thought content: guilt at times. Abstract reasoning, and computation: good Description of associations: good Description of abnormal or psychotic thoughts: intermittent SI reported over the weekend after speaking with his mother. Judgment: poor Insight:limited. Orientation: well oriented in all spheres. Recent and remote memory: good. Attention span and concentration: varies at times but improved and continues to get better Fund of knowledge: full. Mood: depressed. Affect:congruent. DIAGNOSES: 1. MDD, severe recurrent, without psychotic features. 2. PTSD by history 3. Panic disorder by history 4. ADHD by history ASSESSMENT: visible on the unit, bored with being here and wants discharge soon. awaiting information for referral to [facility]. Pt is in need of [facility] treatment for his substance abuse illness and his lingering depression. He is attending programming here and interacting appropriately with staff and peers. Keeps to himself a lot. Right hand showing improvement, less red and less swollen, pt states he has more mobility with it and less pain. Sleep has improved on mirtazapine versus trazodone. Pt has tolerated reduction in oxycodone without complaints. MANAGEMENT PLAN: Continue medications and observational status. Continue to include pt in activities on the unit. Enc him to remain out of his room as much as possible. Continue to monitor sleep and mood. Pt is asking about discharge with outpatient follow up since it is taking so long to get a bed at his first choice which is [facility]. We will discuss this at team meeting tomorrow and meet with Brad. He states he is completely off the opiates and feels much better. He states his arm and hand feels completely healed. He is also concerned about recertifying his medicaid. TIME SPENT: 15 minutes. Vital Signs Vital Signs Date Time Temp Pulse Resp B/P (MAP) Pulse Ox O2 Delivery O2 Flow Rate FiO2 10/14/16 06:23 98.6 57 18 129/62 (84) Room Air Current Medications Current Medications Acetaminophen (Tylenol Tab) 650 mg Q6HP PRN PO HEADACHE or DISCOMFORT Last administered on 10/13/16 20:19; Start 09/26/16 at 19:00; Stop 10/26/16 at 18:59 Al Hydrox/Mg Hydrox/Simethicone (Mylanta) 30 ml Q4HP PRN PO HEARTBURN/ INDIGESTION; Start 09/26/16 at 19:00; Stop 10/26/16 at 18:59 Atorvastatin Calcium (Lipitor) 20 mg QHS PO Last administered on 10/13/16 20: 17; Start 09/27/16 at 21:00; Stop 10/27/16 at 20:59 Bupropion HCl (Wellbutrin Xl) 150 mg QAM PO Last administered on 10/14/16 08: 40; Start 09/27/16 at 09:00; Stop 10/27/16 at 08:59 Clonidine HCl (Catapres) 0.1 mg TID PRN PO withdrawal symptoms Last administered on 10/10/16 16:31; Start 10/04/16 at 14:15; Stop 11/03/16 at 14:14 Gabapentin (Neurontin) 300 mg BID PO Last administered on 10/14/16 08:40; Start 10/04/16 at 09:00; Stop 11/03/16 at 08:59 Home Med (Med Rec Complete!) ASDIRECTED XX ; Start 09/26/16 at 19:00; Stop at 19:01; Status DC Hydroxyzine HCl (Atarax) 25 mg TIDP PRN PO Anxiety Last administered on 15:41; Start 09/26/16 at 19:00; Stop 10/26/16 at 18:59 Levothyroxine Sodium (Synthroid) 0.1 mg DAILY@0600 PO Last administered on 10/14 06:14; Start 09/28/16 at 06:00; Stop 10/28/16 at 05:59 Magnesium Hydroxide (Milk Of Magnesia) 30 ml DAILYPRN PRN PO CONSTIPATION; Start 09/26/16 at 19:00; Stop 10/26/16 at 18:59 Mirtazapine (Remeron) 15 mg QHS PO Last administered on 10/06/16 20:12; Start 10/02/16 at 21:00; Stop 10/08/16 at 09:23; Status DC Mirtazapine (Remeron) 15 mg QHS PO Last administered on 10/13/16 20:17; Start 10/08/16 at 21:00; Stop 11/07/16 at 20:59 Non-Formulary Medication ( See Comment Field Below ) SEE COMMENTS SECTION 1T @10 XX ; Start 09/29/16 at 10:00; Stop 09/30/16 at 09:59; Status UNV Non-Formulary Medication ( See Comment Field Below ) SEE LABEL COMMENTS DAILY XX ; Start 09/27/16 at 09:00; Stop 09/27/16 at 12:07; Status DC Non-Formulary Medication ( See Comment Field Below ) SEE LABEL COMMENTS SECTION 1T@10 XX Last administered on 09/29/16 09:55; Start 09/29/16 at 10:00; Stop 09/29/16 at 23:59; Status DC Omeprazole (PriLOSEC) 20 mg DAILY PO Last administered on 10/14/16 08:40; Start 09/28/16 at 09:00; Stop 10/28/16 at 08:59 Oxycodone HCl (Roxicodone, Oxyir) 5 mg Q6HP PRN PO PAIN Last administered on 21:09; Start 10/12/16 at 14:00; Stop 10/15/16 at 14:00 Oxycodone HCl (Roxicodone, Oxyir) 10 mg Q6HP PRN PO SEVERE PAIN (PS 8-10) Last administered on 10/12/16 09:31; Start 10/09/16 at 14:15; Stop 10/12/16 at 14:00 ; Status DC Oxycodone HCl (Roxicodone, Oxyir) 15 mg Q6HP PRN PO SEVERE PAIN (PS 8-10) Last administered on 10/09/16 08:57; Start 10/04/16 at 14:15; Stop 10/09/16 at 14:16 ; Status DC Oxycodone HCl (Roxicodone, Oxyir) 20 mg Q6HP PRN PO PAIN Last administered on 09:18; Start 09/27/16 at 10:45; Stop 10/04/16 at 14:07; Status DC Paroxetine HCl (PAXil) 40 mg DAILY PO Last administered on 10/14/16 08:40; Start 09/27/16 at 09:00; Stop 10/27/16 at 08:59 Propranolol HCl (Inderal La) 120 mg DAILY PO Last administered on 10/14/16 08: 40; Start 09/28/16 at 09:00; Stop 10/28/16 at 08:59 Propranolol HCl (Inderal) 10 mg QHS PO Last administered on 10/08/16 21:17; Start 10/08/16 at 21:00; Stop 10/09/16 at 14:12; Status DC Propranolol HCl (Inderal) 20 mg QHS PO Last administered on 10/13/16 20:18; Start 10/09/16 at 21:00; Stop 11/08/16 at 20:59 Sertraline HCl (Zoloft) 50 mg QAM PO ; Start 09/27/16 at 09:00; Stop 10/27/16 at 08:59; Status Cancel Trazodone HCl (Desyrel) 25 mg QHSP PRN PO INSOMNIA; Start 09/26/16 at 23:30; Stop 10/26/16 at 23:29; Status Cancel Trazodone HCl (Desyrel) 50 mg QHSP PRN PO INSOMNIA Last administered on 21:47; Start 09/26/16 at 19:00; Stop 09/26/16 at 23:16; Status DC Trazodone HCl (Desyrel) 100 mg QHSP PRN PO INSOMNIA Last administered on 19:58; Start 09/26/16 at 23:30; Stop 10/01/16 at 12:38; Status DC Trazodone HCl (Desyrel) 150 mg QHSP PRN PO INSOMNIA Last administered on 20:13; Start 10/01/16 at 12:45; Stop 10/02/16 at 10:14; Status DC Tuberculin PPD (Aplisol, Ppd) 5 units 1T@10 ID Last administered on 09/27/16 16 :23; Start 09/27/16 at 10:00; Stop 09/27/16 at 23:59; Status DC Allergies Coded Allergies: Haloperidol (Verified Adverse Reaction, Severe, SEVERE DYSTONIA, 09/26/16) Risperidone (Verified Adverse Reaction, Severe, SEVERE DYSTONIA, 09/26/16) Ziprasidone (Verified Adverse Reaction, Severe, SEVERE DYSTONIA, 09/26/16) Divina Adame October 14, 2016 13:34
[2016-10-14] MEDS: hydrOXYzine 25 MG TAB PO PRN (16:21)
[2016-10-14 18:00] VITALS: BP 129/85
[2016-10-14] MEDS: cloNIDine 0.1 MG TAB PO PRN (18:43)
[2016-10-14] MEDS: MIRTAZAPINE 15 MG TAB PO SCH (20:15)
[2016-10-14] MEDS: ATORVASTATIN 20 MG TAB PO SCH (20:15)
[2016-10-14] MEDS: PROPRANOLOL 20 MG TAB PO SCH (20:15)
[2016-10-14] MEDS: ACETAMINOPHEN TAB 650MG DOSE (2X325MG) PO PRN (20:16)
[2016-10-15] MEDS: LEVOTHYROXINE 0.1 MG TAB (100 MCG) PO SCH (05:53)
[2016-10-15 06:52] VITALS: BP 141/85
[2016-10-15] MEDS: GABAPENTIN 300 MG CAP PO SCH ×2 (08:55→20:34)
[2016-10-15] MEDS: buPROPion **XL** TABLET 150MG (WELLBUTRIN XL) PO SCH (08:56)
[2016-10-15] MEDS: PROPRANOLOL 60 MG LA CAP PO SCH (08:56)
[2016-10-15] MEDS: PARoxetine 20 MG TAB PO SCH (08:59)
[2016-10-15] MEDS: ACETAMINOPHEN TAB 650MG DOSE (2X325MG) PO PRN ×2 (08:59→20:35)
[2016-10-15] MEDS: OMEPRAZOLE 20 MG CAP PO SCH (08:59)
--- NOTE | 2016-10-15 14:12 | MHIPNPDOC ---
[facility] Progress Note Progress Note DATE OF SERVICE: 10/15/16 HISTORY: day 20 of admission, pt being treated for SI related to MDD VITAL SIGNS: See below. NEW TEST RESULTS: na CURRENT MEDICATIONS: See below. MENTAL STATUS EXAMINATION: Patient is a 36-year old male, who is dressed in hospital clothing, clean shaven , good eye contact and cooperative. Speech: Is spontaneous Language skills are good. Thought processes including: paranoia, suspicion, otherwise goal directed. Thought content: craving drugs today. Abstract reasoning, and computation: good. Description of associations: good. Description of abnormal or psychotic thoughts: not psychotic, is craving drugs as his last dose of oxycodone was today. Judgment: fair Insight: fair. Orientation: well oriented in all spheres. Recent and remote memory: intact Attention span and concentration: adequate Fund of knowledge: full. Mood: anxious. Affect: congruent. DIAGNOSES: 1. MDD, severe, recurrent without psychotic features 2. Sedative, hypnotic and opiate dependency 3. PTSD by history 4. ADHD by history 5. Panic disorder by history ASSESSMENT:Met with pt to follow up on his request about discharge home and finding his own residence since it is taking so long to get a bed at rehab. [employer] and project planner felt it was a bad idea and pt agrees. He says he is craving drugs and would surely use if let out of the hospital. Pt has to provide DSS with his bank statements and he has not been able to get them printed out on - line and needs to address this today. DCP was helping him with this again today. [employer] will increase atarax to help with lowering his anxiety. We discussed naltrexone or suboxone but will hold off for now as we do not know what if anything will be provided one he gets to rehab. If cravings become worse with revisit. Pt continues to report good sleep. Appetite good. Attending groups. MANAGEMENT PLAN: continue medication mgt, close observation therapeutic programs and safe environment. TIME SPENT: 30 minutes. Vital Signs Vital Signs Date Time Temp Pulse Resp B/P (MAP) Pulse Ox O2 Delivery O2 Flow Rate FiO2 10/15/16 08:56 60 140/95 10/15/16 06:52 98.9 16 10/14/16 06:23 Room Air Current Medications Current Medications Acetaminophen (Tylenol Tab) 650 mg Q6HP PRN PO HEADACHE or DISCOMFORT Last administered on 10/15/16 08:59; Start 09/26/16 at 19:00; Stop 10/26/16 at 18:59 Al Hydrox/Mg Hydrox/Simethicone (Mylanta) 30 ml Q4HP PRN PO HEARTBURN/ INDIGESTION; Start 09/26/16 at 19:00; Stop 10/26/16 at 18:59 Atorvastatin Calcium (Lipitor) 20 mg QHS PO Last administered on 10/14/16 20: 15; Start 09/27/16 at 21:00; Stop 10/27/16 at 20:59 Bupropion HCl (Wellbutrin Xl) 150 mg QAM PO Last administered on 10/15/16 08: 56; Start 09/27/16 at 09:00; Stop 10/27/16 at 08:59 Clonidine HCl (Catapres) 0.1 mg TID PRN PO withdrawal symptoms Last administered on 10/14/16 18:43; Start 10/04/16 at 14:15; Stop 11/03/16 at 14:14 Gabapentin (Neurontin) 300 mg BID PO Last administered on 10/15/16 08:55; Start 10/04/16 at 09:00; Stop 11/03/16 at 08:59 Home Med (Med Rec Complete!) ASDIRECTED XX ; Start 09/26/16 at 19:00; Stop at 19:01; Status DC Hydroxyzine HCl (Atarax) 25 mg TIDP PRN PO Anxiety Last administered on 16:21; Start 09/26/16 at 19:00; Stop 10/15/16 at 12:54; Status DC Hydroxyzine HCl (Atarax) 50 mg Q4HP PRN PO anxiety; Start 10/15/16 at 13:00; Stop 11/14/16 at 12:59 Levothyroxine Sodium (Synthroid) 0.1 mg DAILY@0600 PO Last administered on 10/15 05:53; Start 09/28/16 at 06:00; Stop 10/28/16 at 05:59 Magnesium Hydroxide (Milk Of Magnesia) 30 ml DAILYPRN PRN PO CONSTIPATION; Start 09/26/16 at 19:00; Stop 10/26/16 at 18:59 Mirtazapine (Remeron) 15 mg QHS PO Last administered on 10/06/16 20:12; Start 10/02/16 at 21:00; Stop 10/08/16 at 09:23; Status DC Mirtazapine (Remeron) 15 mg QHS PO Last administered on 10/14/16 20:15; Start 10/08/16 at 21:00; Stop 11/07/16 at 20:59 Non-Formulary Medication ( See Comment Field Below ) SEE COMMENTS SECTION 1T @10 XX ; Start 09/29/16 at 10:00; Stop 09/30/16 at 09:59; Status UNV Non-Formulary Medication ( See Comment Field Below ) SEE LABEL COMMENTS DAILY XX ; Start 09/27/16 at 09:00; Stop 09/27/16 at 12:07; Status DC Non-Formulary Medication ( See Comment Field Below ) SEE LABEL COMMENTS SECTION 1T@10 XX Last administered on 09/29/16 09:55; Start 09/29/16 at 10:00; Stop 09/29/16 at 23:59; Status DC Omeprazole (PriLOSEC) 20 mg DAILY PO Last administered on 10/15/16 08:59; Start 09/28/16 at 09:00; Stop 10/28/16 at 08:59 Oxycodone HCl (Roxicodone, Oxyir) 5 mg Q6HP PRN PO PAIN Last administered on 21:09; Start 10/12/16 at 14:00; Stop 10/15/16 at 12:54; Status DC Oxycodone HCl (Roxicodone, Oxyir) 10 mg Q6HP PRN PO SEVERE PAIN (PS 8-10) Last administered on 10/12/16 09:31; Start 10/09/16 at 14:15; Stop 10/12/16 at 14:00 ; Status DC Oxycodone HCl (Roxicodone, Oxyir) 15 mg Q6HP PRN PO SEVERE PAIN (PS 8-10) Last administered on 10/09/16 08:57; Start 10/04/16 at 14:15; Stop 10/09/16 at 14:16 ; Status DC Oxycodone HCl (Roxicodone, Oxyir) 20 mg Q6HP PRN PO PAIN Last administered on 09:18; Start 09/27/16 at 10:45; Stop 10/04/16 at 14:07; Status DC Paroxetine HCl (PAXil) 40 mg DAILY PO Last administered on 10/15/16 08:59; Start 09/27/16 at 09:00; Stop 10/27/16 at 08:59 Propranolol HCl (Inderal La) 120 mg DAILY PO Last administered on 10/15/16 08: 56; Start 09/28/16 at 09:00; Stop 10/28/16 at 08:59 Propranolol HCl (Inderal) 10 mg QHS PO Last administered on 10/08/16 21:17; Start 10/08/16 at 21:00; Stop 10/09/16 at 14:12; Status DC Propranolol HCl (Inderal) 20 mg QHS PO Last administered on 10/14/16 20:15; Start 10/09/16 at 21:00; Stop 11/08/16 at 20:59 Sertraline HCl (Zoloft) 50 mg QAM PO ; Start 09/27/16 at 09:00; Stop 10/27/16 at 08:59; Status Cancel Trazodone HCl (Desyrel) 25 mg QHSP PRN PO INSOMNIA; Start 09/26/16 at 23:30; Stop 10/26/16 at 23:29; Status Cancel Trazodone HCl (Desyrel) 50 mg QHSP PRN PO INSOMNIA Last administered on 21:47; Start 09/26/16 at 19:00; Stop 09/26/16 at 23:16; Status DC Trazodone HCl (Desyrel) 100 mg QHSP PRN PO INSOMNIA Last administered on 19:58; Start 09/26/16 at 23:30; Stop 10/01/16 at 12:38; Status DC Trazodone HCl (Desyrel) 150 mg QHSP PRN PO INSOMNIA Last administered on 20:13; Start 10/01/16 at 12:45; Stop 10/02/16 at 10:14; Status DC Tuberculin PPD (Aplisol, Ppd) 5 units 1T@10 ID Last administered on 09/27/16t 16 :23; Start 09/27/16 at 10:00; Stop 09/27/16 at 23:59; Status DC Allergies Coded Allergies: Haloperidol (Verified Adverse Reaction, Severe, SEVERE DYSTONIA, 09/26/16) Risperidone (Verified Adverse Reaction, Severe, SEVERE DYSTONIA, 09/26/16) Ziprasidone (Verified Adverse Reaction, Severe, SEVERE DYSTONIA, 09/26/16) Divina Adame October 15, 2016 14:12
[2016-10-15] MEDS: hydrOXYzine 50 MG TAB PO PRN ×2 (15:24→20:34)
[2016-10-15] MEDS: cloNIDine 0.1 MG TAB PO PRN (17:04)
[2016-10-15 18:00] VITALS: BP 150/88
[2016-10-15] MEDS: ATORVASTATIN 20 MG TAB PO SCH (20:34)
[2016-10-15] MEDS: PROPRANOLOL 20 MG TAB PO SCH (20:34)
[2016-10-15] MEDS: MIRTAZAPINE 15 MG TAB PO SCH (20:36)
[2016-10-16] MEDS: ACETAMINOPHEN TAB 650MG DOSE (2X325MG) PO PRN ×2 (02:52→18:03)
[2016-10-16] MEDS: cloNIDine 0.1 MG TAB PO PRN (02:53)
[2016-10-16] MEDS: hydrOXYzine 50 MG TAB PO PRN ×2 (02:53→17:51)
[2016-10-16] MEDS: LEVOTHYROXINE 0.1 MG TAB (100 MCG) PO SCH (06:05)
[2016-10-16 06:57] VITALS: BP 122/76
[2016-10-16] MEDS: OMEPRAZOLE 20 MG CAP PO SCH (09:10)
[2016-10-16] MEDS: PARoxetine 20 MG TAB PO SCH (09:10)
[2016-10-16] MEDS: GABAPENTIN 300 MG CAP PO SCH ×2 (09:10→20:17)
[2016-10-16] MEDS: PROPRANOLOL 60 MG LA CAP PO SCH (09:10)
[2016-10-16] MEDS: buPROPion **XL** TABLET 150MG (WELLBUTRIN XL) PO SCH (09:10)
--- NOTE | 2016-10-16 10:39 | MHIPNPDOC ---
[facility] Progress Note Progress Note DATE OF SERVICE: 10/16/16 HISTORY: day 21, pt admitted after rapid decompensation and return to suicidal ideation following discharge. Drug seeking behaviors. VITAL SIGNS: See below. NEW TEST RESULTS: na CURRENT MEDICATIONS: See below. MENTAL STATUS EXAMINATION: Patient is a 36-year old male, who is dressed in hospital attire, clean shaven, bald, good eye contact. Speech: Is clear and spontaneous Language skills are intact Thought processes including: future oriented Thought content: drug withdrawal, discharge, frustration with waiting.. Abstract reasoning, and computation: good Description of associations: good Description of abnormal or psychotic thoughts: intermittent thoughts of suicide due to his frustration and his desire to leave the acute inpatient setting, continues to crave drugs. Judgment: fair Insight: fair. Orientation: well oriented in all spheres Recent and remote memory: intact Attention span and concentration: adequate Fund of knowledge: full. Mood: depressed. Affect: congruent. DIAGNOSES: 1. MDD, severe, recurrent without psychotic features. 2. Sedative, hypnotic and opiate dependency 3. PTSD by history 4. Panic disorder by history 5. ADHD by history 6. Alcohol dependence in remission ASSESSMENT:Met with pt for 1:1 today. He asked again about suboxone. Offered him Librium which he feels he needs. His VS are stable but his cravings are strong. Will monitor reducation in cravings after starting Librium. He will be on a 3 day tapered dose to assist with opiate withdrawal. Pt reports akathesia since starting mirtazapine. He request switching back to trazodone 100 mg. Request seems appropriate and will be initiated. Denies psychotic symptoms, denies maximino or hypomania. He did not sleep well last night due to akathesia. Getting along well on unit but keeps mainly to self. Mother is in contact with [facility] Certified [employer] Drug Counselor. Pt is participating in discharge plans and helping with getting bank statements for DSS. MANAGEMENT PLAN: Med change from mirtazapine to trazodone will be ordered. Librium taper to start at noon today and end at hs on 10/18/16. Still awaiting word from [facility]. Pt has stated he will use drugs if he leaves the hospital at this time. This would be dangerous for him and those around him. TIME SPENT: 30 minutes. Vital Signs Vital Signs Date Time Temp Pulse Resp B/P (MAP) Pulse Ox O2 Delivery O2 Flow Rate FiO2 10/16/16 09:10 67 122/76 10/16/16 06:57 97.6 18 10/14/16 06:23 Room Air Current Medications Current Medications Acetaminophen (Tylenol Tab) 650 mg Q6HP PRN PO HEADACHE or DISCOMFORT Last administered on 10/16/16 02:52; Start 09/26/16 at 19:00; Stop 10/26/16 at 18:59 Al Hydrox/Mg Hydrox/Simethicone (Mylanta) 30 ml Q4HP PRN PO HEARTBURN/ INDIGESTION; Start 09/26/16 at 19:00; Stop 10/26/16 at 18:59 Atorvastatin Calcium (Lipitor) 20 mg QHS PO Last administered on 10/15/16 20: 34; Start 09/27/16 at 21:00; Stop 10/27/16 at 20:59 Bupropion HCl (Wellbutrin Xl) 150 mg QAM PO Last administered on 10/16/16 09: 10; Start 09/27/16 at 09:00; Stop 10/27/16 at 08:59 Clonidine HCl (Catapres) 0.1 mg TID PRN PO withdrawal symptoms Last administered on 10/16/16 02:53; Start 10/04/16 at 14:15; Stop 11/03/16 at 14:14 Gabapentin (Neurontin) 300 mg BID PO Last administered on 10/16/16 09:10; Start 10/04/16 at 09:00; Stop 11/03/16 at 08:59 Home Med (Med Rec Complete!) ASDIRECTED XX ; Start 09/26/16 at 19:00; Stop at 19:01; Status DC Hydroxyzine HCl (Atarax) 25 mg TIDP PRN PO Anxiety Last administered on 16:21; Start 09/26/16 at 19:00; Stop 10/15/16 at 12:54; Status DC Hydroxyzine HCl (Atarax) 50 mg Q4HP PRN PO anxiety Last administered on 02:53; Start 10/15/16 at 13:00; Stop 11/14/16 at 12:59 Levothyroxine Sodium (Synthroid) 0.1 mg DAILY@0600 PO Last administered on 10/16 06:05; Start 09/28/16 at 06:00; Stop 10/28/16 at 05:59 Magnesium Hydroxide (Milk Of Magnesia) 30 ml DAILYPRN PRN PO CONSTIPATION; Start 09/26/16 at 19:00; Stop 10/26/16 at 18:59 Mirtazapine (Remeron) 15 mg QHS PO Last administered on 10/06/16 20:12; Start 10/02/16 at 21:00; Stop 10/08/16 at 09:23; Status DC Mirtazapine (Remeron) 15 mg QHS PO Last administered on 10/14/16 20:15; Start 10/08/16 at 21:00; Stop 10/16/16 at 10:23; Status DC Non-Formulary Medication ( See Comment Field Below ) SEE COMMENTS SECTION 1T @10 XX ; Start 09/29/16 at 10:00; Stop 09/30/16 at 09:59; Status UNV Non-Formulary Medication ( See Comment Field Below ) SEE LABEL COMMENTS DAILY XX ; Start 09/27/16 at 09:00; Stop 09/27/16 at 12:07; Status DC Non-Formulary Medication ( See Comment Field Below ) SEE LABEL COMMENTS SECTION 1T@10 XX Last administered on 09/29/16 09:55; Start 09/29/16 at 10:00; Stop 09/29/16 at 23:59; Status DC Omeprazole (PriLOSEC) 20 mg DAILY PO Last administered on 10/16/16 09:10; Start 09/28/16 at 09:00; Stop 10/28/16 at 08:59 Oxycodone HCl (Roxicodone, Oxyir) 5 mg Q6HP PRN PO PAIN Last administered on 21:09; Start 10/12/16 at 14:00; Stop 10/15/16 at 12:54; Status DC Oxycodone HCl (Roxicodone, Oxyir) 10 mg Q6HP PRN PO SEVERE PAIN (PS 8-10) Last administered on 10/12/16 09:31; Start 10/09/16 at 14:15; Stop 10/12/16 at 14:00 ; Status DC Oxycodone HCl (Roxicodone, Oxyir) 15 mg Q6HP PRN PO SEVERE PAIN (PS 8-10) Last administered on 10/09/16 08:57; Start 10/04/16 at 14:15; Stop 10/09/16 at 14:16 ; Status DC Oxycodone HCl (Roxicodone, Oxyir) 20 mg Q6HP PRN PO PAIN Last administered on 09:18; Start 09/27/16 at 10:45; Stop 10/04/16 at 14:07; Status DC Paroxetine HCl (PAXil) 40 mg DAILY PO Last administered on 10/16/16 09:10; Start 09/27/16 at 09:00; Stop 10/27/16 at 08:59 Propranolol HCl (Inderal La) 120 mg DAILY PO Last administered on 10/16/16 09: 10; Start 09/28/16 at 09:00; Stop 10/28/16 at 08:59 Propranolol HCl (Inderal) 10 mg QHS PO Last administered on 10/08/16 21:17; Start 10/08/16 at 21:00; Stop 10/09/16 at 14:12; Status DC Propranolol HCl (Inderal) 20 mg QHS PO Last administered on 10/15/16 20:34; Start 10/09/16 at 21:00; Stop 11/08/16 at 20:59 Sertraline HCl (Zoloft) 50 mg QAM PO ; Start 09/27/16 at 09:00; Stop 10/27/16 at 08:59; Status Cancel Trazodone HCl (Desyrel) 25 mg QHSP PRN PO INSOMNIA; Start 09/26/16 at 23:30; Stop 10/26/16 at 23:29; Status Cancel Trazodone HCl (Desyrel) 50 mg QHSP PRN PO INSOMNIA Last administered on 21:47; Start 09/26/16 at 19:00; Stop 09/26/16 at 23:16; Status DC Trazodone HCl (Desyrel) 100 mg QHSP PRN PO INSOMNIA; Start 10/16/16 at 10:30; Stop 11/15/16 at 10:29 Trazodone HCl (Desyrel) 100 mg QHSP PRN PO INSOMNIA Last administered on 19:58; Start 09/26/16 at 23:30; Stop 10/01/16 at 12:38; Status DC Trazodone HCl (Desyrel) 150 mg QHSP PRN PO INSOMNIA Last administered on 20:13; Start 10/01/16 at 12:45; Stop 10/02/16 at 10:14; Status DC Tuberculin PPD (Aplisol, Ppd) 5 units 1T@10 ID Last administered on 09/27/16 16 :23; Start 09/27/16 at 10:00; Stop 09/27/16 at 23:59; Status DC Allergies Coded Allergies: Haloperidol (Verified Adverse Reaction, Severe, SEVERE DYSTONIA, 09/26/16) Risperidone (Verified Adverse Reaction, Severe, SEVERE DYSTONIA, 09/26/16) Ziprasidone (Verified Adverse Reaction, Severe, SEVERE DYSTONIA, 09/26/16) Divina Adame October 16, 2016 10:38
[2016-10-16] MEDS: chlordiazePOXIDE 25 MG CAP PO SCH ×3 (11:31→20:17)
[2016-10-16 18:00] VITALS: BP 139/80
[2016-10-16] MEDS: PROPRANOLOL 20 MG TAB PO SCH (20:17)
[2016-10-16] MEDS: ATORVASTATIN 20 MG TAB PO SCH (20:17)
[2016-10-16] MEDS: traZODone 100 MG TAB PO PRN (20:20)
[2016-10-17] MEDS: LEVOTHYROXINE 0.1 MG TAB (100 MCG) PO SCH (06:04)
[2016-10-17 06:38] VITALS: BP 133/63
[2016-10-17] MEDS: ACETAMINOPHEN TAB 650MG DOSE (2X325MG) PO PRN (09:51)
[2016-10-17] MEDS: buPROPion **XL** TABLET 150MG (WELLBUTRIN XL) PO SCH (09:51)
[2016-10-17] MEDS: PARoxetine 20 MG TAB PO SCH (09:52)
[2016-10-17] MEDS: chlordiazePOXIDE 25 MG CAP PO SCH ×2 (09:52→21:18)
[2016-10-17] MEDS: GABAPENTIN 300 MG CAP PO SCH ×2 (09:53→21:18)
[2016-10-17] MEDS: PROPRANOLOL 60 MG LA CAP PO SCH (09:54)
[2016-10-17] MEDS: OMEPRAZOLE 20 MG CAP PO SCH (09:54)
--- NOTE | 2016-10-17 14:14 | MHIPNPDOC ---
[facility] Progress Note Progress Note DATE OF SERVICE: 10/17/16 HISTORY: day of admission VITAL SIGNS: See below. NEW TEST RESULTS: none CURRENT MEDICATIONS: See below. MENTAL STATUS EXAMINATION: Patient is a 36-year old male, who is dressed in hospital attire, unshaven, clean, making good eye contact, cooperative. Speech: Is clear Language skills are good Thought processes including: goal directed Thought content: arm pain. medicaid Abstract reasoning, and computation: good. Description of associations: good Description of abnormal or psychotic thoughts: denies SI today, denies visual or auditory disturbance, states if released from the hospital he will surely seek out drugs and use. "Once that happens I have no idea what could happen". Judgment: poor Insight: limited Orientation: A & O x 3 Recent and remote memory: good Attention span and concentration: adequate Fund of knowledge: full Mood: depressed. Affect: broad DIAGNOSES: 1. MDD, moderate, recurrent, without psychotic features. 2. Sedative, hypnotic and opiate dependence 3. PTSD by history 4. ADHD by history 5. Panic disorder by history 6. Alcohol abuse in remission ASSESSMENT:pt completed his role in obtaining bank statements for DSS to reinstate his Medicaid. An expedited review has been requested so he has insurance when a bed is available for [facility]. Pt remains a suicide and/ or DTO risk if discharged prior to GABE treatment. He is attending groups as tolerated. He continues to c/o arm pain late in the day when it becomes swollen. Enc to elevate arm during quiet time of 2:30-3:30. pt eating well, no complaint of sleep problems last night. MANAGEMENT PLAN: continue meds, therapeutic environment and observation. Call placed to [facility] today regarding Medicaid and inquiring about bed status. the hope is for an opening next week for this pt. TIME SPENT: minutes. Vital Signs Vital Signs Date Time Temp Pulse Resp B/P (MAP) Pulse Ox O2 Delivery O2 Flow Rate FiO2 10/17/16 09:54 61 133/63 10/17/16 06:38 97.9 18 10/16/16 18:00 Room Air Current Medications Current Medications Acetaminophen (Tylenol Tab) 650 mg Q6HP PRN PO HEADACHE or DISCOMFORT Last administered on 10/17/16t 09:51; Start 09/26/16 at 19:00; Stop 10/26/16 at 18:59 Al Hydrox/Mg Hydrox/Simethicone (Mylanta) 30 ml Q4HP PRN PO HEARTBURN/ INDIGESTION; Start 09/26/16 at 19:00; Stop 10/26/16 at 18:59 Atorvastatin Calcium (Lipitor) 20 mg QHS PO Last administered on 10/16/16 20: 17; Start 09/27/16 at 21:00; Stop 10/27/16 at 20:59 Bupropion HCl (Wellbutrin Xl) 150 mg QAM PO Last administered on 10/17/16 09: 51; Start 09/27/16 at 09:00; Stop 10/27/16 at 08:59 Chlordiazepoxide (Librium) 25 mg BID PO Last administered on 10/17/16 09:52; Start 10/17/16 at 09:00; Stop 10/18/16 at 08:59 Chlordiazepoxide (Librium) 25 mg QHS PO ; Start 10/18/16 at 21:00; Stop at 21:01 Chlordiazepoxide (Librium) 25 mg TID PO Last administered on 10/16/16 20:17; Start 10/16/16 at 09:00; Stop 10/17/16 at 08:59; Status DC Clonidine HCl (Catapres) 0.1 mg TID PRN PO withdrawal symptoms Last administered on 10/16/16 02:53; Start 10/04/16 at 14:15; Stop 11/03/16 at 14:14 Gabapentin (Neurontin) 300 mg BID PO Last administered on 10/17/16 09:53; Start 10/04/16 at 09:00; Stop 11/03/16 at 08:59 Home Med (Med Rec Complete!) ASDIRECTED XX ; Start 09/26/16 at 19:00; Stop at 19:01; Status DC Hydroxyzine HCl (Atarax) 25 mg TIDP PRN PO Anxiety Last administered on 16:21; Start 09/26/16 at 19:00; Stop 10/15/16 at 12:54; Status DC Hydroxyzine HCl (Atarax) 50 mg Q4HP PRN PO anxiety Last administered on 17:51; Start 10/15/16 at 13:00; Stop 11/14/16 at 12:59 Levothyroxine Sodium (Synthroid) 0.1 mg DAILY@0600 PO Last administered on 10/17 06:04; Start 09/28/16 at 06:00; Stop 10/28/16 at 05:59 Magnesium Hydroxide (Milk Of Magnesia) 30 ml DAILYPRN PRN PO CONSTIPATION; Start 09/26/16 at 19:00; Stop 10/26/16 at 18:59 Mirtazapine (Remeron) 15 mg QHS PO Last administered on 10/06/16 20:12; Start 10/02/16 at 21:00; Stop 10/08/16 at 09:23; Status DC Mirtazapine (Remeron) 15 mg QHS PO Last administered on 10/14/16 20:15; Start 10/08/16 at 21:00; Stop 10/16/16 at 10:23; Status DC Non-Formulary Medication ( See Comment Field Below ) SEE COMMENTS SECTION 1T @10 XX ; Start 09/29/16 at 10:00; Stop 09/30/16 at 09:59; Status UNV Non-Formulary Medication ( See Comment Field Below ) SEE LABEL COMMENTS DAILY XX ; Start 09/27/16 at 09:00; Stop 09/27/16 at 12:07; Status DC Non-Formulary Medication ( See Comment Field Below ) SEE LABEL COMMENTS SECTION 1T@10 XX Last administered on 09/29/16 09:55; Start 09/29/16 at 10:00; Stop 09/29/16 at 23:59; Status DC Omeprazole (PriLOSEC) 20 mg DAILY PO Last administered on 10/17/16 09:54; Start 09/28/16 at 09:00; Stop 10/28/16 at 08:59 Oxycodone HCl (Roxicodone, Oxyir) 5 mg Q6HP PRN PO PAIN Last administered on 21:09; Start 10/12/16 at 14:00; Stop 10/15/16 at 12:54; Status DC Oxycodone HCl (Roxicodone, Oxyir) 10 mg Q6HP PRN PO SEVERE PAIN (PS 8-10) Last administered on 10/12/16 09:31; Start 10/09/16 at 14:15; Stop 10/12/16 at 14:00 ; Status DC Oxycodone HCl (Roxicodone, Oxyir) 15 mg Q6HP PRN PO SEVERE PAIN (PS 8-10) Last administered on 10/09/16 08:57; Start 10/04/16 at 14:15; Stop 10/09/16 at 14:16 ; Status DC Oxycodone HCl (Roxicodone, Oxyir) 20 mg Q6HP PRN PO PAIN Last administered on 09:18; Start 09/27/16 at 10:45; Stop 10/04/16 at 14:07; Status DC Paroxetine HCl (PAXil) 40 mg DAILY PO Last administered on 10/17/16 09:52; Start 09/27/16 at 09:00; Stop 10/27/16 at 08:59 Propranolol HCl (Inderal La) 120 mg DAILY PO Last administered on 10/17/16 09: 54; Start 09/28/16 at 09:00; Stop 10/28/16 at 08:59 Propranolol HCl (Inderal) 10 mg QHS PO Last administered on 10/08/16 21:17; Start 10/08/16 at 21:00; Stop 10/09/16 at 14:12; Status DC Propranolol HCl (Inderal) 20 mg QHS PO Last administered on 10/16/16 20:17; Start 10/09/16 at 21:00; Stop 11/08/16 at 20:59 Sertraline HCl (Zoloft) 50 mg QAM PO ; Start 09/27/16 at 09:00; Stop 10/27/16 at 08:59; Status Cancel Trazodone HCl (Desyrel) 25 mg QHSP PRN PO INSOMNIA; Start 09/26/16 at 23:30; Stop 10/26/16 at 23:29; Status Cancel Trazodone HCl (Desyrel) 50 mg QHSP PRN PO INSOMNIA Last administered on 21:47; Start 09/26/16 at 19:00; Stop 09/26/16 at 23:16; Status DC Trazodone HCl (Desyrel) 100 mg QHSP PRN PO INSOMNIA Last administered on 20:20; Start 10/16/16 at 10:30; Stop 11/15/16 at 10:29 Trazodone HCl (Desyrel) 100 mg QHSP PRN PO INSOMNIA Last administered on 19:58; Start 09/26/16 at 23:30; Stop 10/01/16 at 12:38; Status DC Trazodone HCl (Desyrel) 150 mg QHSP PRN PO INSOMNIA Last administered on 20:13; Start 10/01/16 at 12:45; Stop 10/02/16 at 10:14; Status DC Tuberculin PPD (Aplisol, Ppd) 5 units 1T@10 ID Last administered on 09/27/16 16 :23; Start 09/27/16 at 10:00; Stop 09/27/16 at 23:59; Status DC Allergies Coded Allergies: Haloperidol (Verified Adverse Reaction, Severe, SEVERE DYSTONIA, 09/26/16) Risperidone (Verified Adverse Reaction, Severe, SEVERE DYSTONIA, 09/26/16) Ziprasidone (Verified Adverse Reaction, Severe, SEVERE DYSTONIA, 09/26/16) Divina Adame October 17, 2016 14:14
[2016-10-17 18:00] VITALS: BP 149/74
[2016-10-17] MEDS: cloNIDine 0.1 MG TAB PO PRN (18:00)
[2016-10-17] MEDS: IBUPROFEN 600 MG TAB PO PRN (18:01)
[2016-10-17] MEDS: ATORVASTATIN 20 MG TAB PO SCH (21:18)
[2016-10-17] MEDS: PROPRANOLOL 20 MG TAB PO SCH (21:18)
[2016-10-17] MEDS: traZODone 100 MG TAB PO PRN (21:19)
[2016-10-18] MEDS: LEVOTHYROXINE 0.1 MG TAB (100 MCG) PO SCH (05:56)
[2016-10-18 07:02] VITALS: BP 139/88
[2016-10-18] MEDS: OMEPRAZOLE 20 MG CAP PO SCH (09:15)
[2016-10-18] MEDS: PARoxetine 20 MG TAB PO SCH (09:16)
[2016-10-18] MEDS: buPROPion **XL** TABLET 150MG (WELLBUTRIN XL) PO SCH (09:16)
[2016-10-18] MEDS: PROPRANOLOL 60 MG LA CAP PO SCH (09:16)
[2016-10-18] MEDS: IBUPROFEN 600 MG TAB PO PRN ×2 (09:16→17:29)
[2016-10-18] MEDS: GABAPENTIN 300 MG CAP PO SCH ×2 (09:16→20:07)
--- NOTE | 2016-10-18 10:50 | MHIPNPDOC ---
[facility] Progress Note Progress Note DATE OF SERVICE: 10/18/16 HISTORY: day VITAL SIGNS: See below. NEW TEST RESULTS: none CURRENT MEDICATIONS: See below. MENTAL STATUS EXAMINATION: Patient is a 36-year old male, who is appropriately attired, unshaven, dis- sheveled, good eye contact, cooperative. Speech: Is spontaneous Language skills are good Thought processes including: goal directed Thought content: future oriented Abstract reasoning, and computation: good. Description of associations: good Description of abnormal or psychotic thoughts: is having cravings for drugs, denies suicide but admits he would be in danger if discharged prior to rehab treatment. states he will go out and use.. Judgment: limited. Insight: fair. Orientation: oriented in all spheres. Recent and remote memory: good Attention span and concentration: easily distracted. Fund of knowledge: full Mood: anxious. Affect: anxious DIAGNOSES: 1. MDD, moderate, recurrent, without psychotic features. 2. Sedative, hypnotic and opiate dependency 3. PTSD by history 4. Panic disorder by history 5. ADHD by history. ASSESSMENT:Pt continues to be med seeking. reporting arm pain in afternoon and encouraged to use conservative methods. attending programming and visible on the unit. Reports good sleeping and good appetite, denies constipation MANAGEMENT PLAN: continue meds. No call back from [facility] as to bed availability. They did anticipate a bed next week so we are hopeful this will happen and he can be discharged next week. TIME SPENT: 15 minutes. Vital Signs Vital Signs Date Time Temp Pulse Resp B/P (MAP) Pulse Ox O2 Delivery O2 Flow Rate FiO2 10/18/16 09:16 79 139/88 10/18/16 07:02 97.4 14 10/16/16 18:00 Room Air Current Medications Current Medications Acetaminophen (Tylenol Tab) 650 mg Q6HP PRN PO HEADACHE or DISCOMFORT Last administered on 10/17/16 09:51; Start 09/26/16 at 19:00; Stop 10/26/16 at 18:59 Al Hydrox/Mg Hydrox/Simethicone (Mylanta) 30 ml Q4HP PRN PO HEARTBURN/ INDIGESTION; Start 09/26/16 at 19:00; Stop 10/26/16 at 18:59 Atorvastatin Calcium (Lipitor) 20 mg QHS PO Last administered on 10/17/16 21: 18; Start 09/27/16 at 21:00; Stop 10/27/16 at 20:59 Bupropion HCl (Wellbutrin Xl) 150 mg QAM PO Last administered on 10/18/16 09: 16; Start 09/27/16 at 09:00; Stop 10/27/16 at 08:59 Chlordiazepoxide (Librium) 25 mg BID PO Last administered on 10/17/16 21:18; Start 10/17/16 at 09:00; Stop 10/18/16 at 08:59; Status DC Chlordiazepoxide (Librium) 25 mg QHS PO ; Start 10/18/16 at 21:00; Stop at 21:01 Chlordiazepoxide (Librium) 25 mg TID PO Last administered on 10/16/16 20:17; Start 10/16/16 at 09:00; Stop 10/17/16 at 08:59; Status DC Clonidine HCl (Catapres) 0.1 mg TID PRN PO withdrawal symptoms Last administered on 10/17/16 18:00; Start 10/04/16 at 14:15; Stop 11/03/16 at 14:14 Gabapentin (Neurontin) 300 mg BID PO Last administered on 10/18/16 09:16; Start 10/04/16 at 09:00; Stop 11/03/16 at 08:59 Home Med (Med Rec Complete!) ASDIRECTED XX ; Start 09/26/16 at 19:00; Stop at 19:01; Status DC Hydroxyzine HCl (Atarax) 25 mg TIDP PRN PO Anxiety Last administered on 16:21; Start 09/26/16 at 19:00; Stop 10/15/16 at 12:54; Status DC Hydroxyzine HCl (Atarax) 50 mg Q4HP PRN PO anxiety Last administered on 17:51; Start 10/15/16 at 13:00; Stop 11/14/16 at 12:59 Ibuprofen (Advil) 600 mg Q6HP PRN PO MODERATE PAIN (PS 5-7) Last administered on 10/18/16 09:16; Start 10/17/16 at 14:30; Stop 11/16/16 at 14:29 Levothyroxine Sodium (Synthroid) 0.1 mg DAILY@0600 PO Last administered on 10/18 05:56; Start 09/28/16 at 06:00; Stop 10/28/16 at 05:59 Magnesium Hydroxide (Milk Of Magnesia) 30 ml DAILYPRN PRN PO CONSTIPATION; Start 09/26/16 at 19:00; Stop 10/26/16 at 18:59 Mirtazapine (Remeron) 15 mg QHS PO Last administered on 10/06/16 20:12; Start 10/02/16 at 21:00; Stop 10/08/16 at 09:23; Status DC Mirtazapine (Remeron) 15 mg QHS PO Last administered on 10/14/16 20:15; Start 10/08/16 at 21:00; Stop 10/16/16 at 10:23; Status DC Non-Formulary Medication ( See Comment Field Below ) SEE COMMENTS SECTION 1T @10 XX ; Start 09/29/16 at 10:00; Stop 09/30/16 at 09:59; Status UNV Non-Formulary Medication ( See Comment Field Below ) SEE LABEL COMMENTS DAILY XX ; Start 09/27/16 at 09:00; Stop 09/27/16 at 12:07; Status DC Non-Formulary Medication ( See Comment Field Below ) SEE LABEL COMMENTS SECTION 1T@10 XX Last administered on 09/29/16 09:55; Start 09/29/16 at 10:00; Stop 09/29/16 at 23:59; Status DC Omeprazole (PriLOSEC) 20 mg DAILY PO Last administered on 10/18/16 09:15; Start 09/28/16 at 09:00; Stop 10/28/16 at 08:59 Oxycodone HCl (Roxicodone, Oxyir) 5 mg Q6HP PRN PO PAIN Last administered on 21:09; Start 10/12/16 at 14:00; Stop 10/15/16 at 12:54; Status DC Oxycodone HCl (Roxicodone, Oxyir) 10 mg Q6HP PRN PO SEVERE PAIN (PS 8-10) Last administered on 10/12/16 09:31; Start 10/09/16 at 14:15; Stop 10/12/16 at 14:00 ; Status DC Oxycodone HCl (Roxicodone, Oxyir) 15 mg Q6HP PRN PO SEVERE PAIN (PS 8-10) Last administered on 10/09/16 08:57; Start 10/04/16 at 14:15; Stop 10/09/16 at 14:16 ; Status DC Oxycodone HCl (Roxicodone, Oxyir) 20 mg Q6HP PRN PO PAIN Last administered on 09:18; Start 09/27/16 at 10:45; Stop 10/04/16 at 14:07; Status DC Paroxetine HCl (PAXil) 40 mg DAILY PO Last administered on 10/18/16 09:16; Start 09/27/16 at 09:00; Stop 10/27/16 at 08:59 Propranolol HCl (Inderal La) 120 mg DAILY PO Last administered on 10/18/16 09: 16; Start 09/28/16 at 09:00; Stop 10/28/16 at 08:59 Propranolol HCl (Inderal) 10 mg QHS PO Last administered on 10/08/16 21:17; Start 10/08/16 at 21:00; Stop 10/09/16 at 14:12; Status DC Propranolol HCl (Inderal) 20 mg QHS PO Last administered on 10/17/16 21:18; Start 10/09/16 at 21:00; Stop 11/08/16 at 20:59 Sertraline HCl (Zoloft) 50 mg QAM PO ; Start 09/27/16 at 09:00; Stop 10/27/16 at 08:59; Status Cancel Trazodone HCl (Desyrel) 25 mg QHSP PRN PO INSOMNIA; Start 09/26/16 at 23:30; Stop 10/26/16 at 23:29; Status Cancel Trazodone HCl (Desyrel) 50 mg QHSP PRN PO INSOMNIA Last administered on 21:47; Start 09/26/16 at 19:00; Stop 09/26/16 at 23:16; Status DC Trazodone HCl (Desyrel) 100 mg QHSP PRN PO INSOMNIA Last administered on 21:19; Start 10/16/16 at 10:30; Stop 11/15/16 at 10:29 Trazodone HCl (Desyrel) 100 mg QHSP PRN PO INSOMNIA Last administered on 19:58; Start 09/26/16 at 23:30; Stop 10/01/16 at 12:38; Status DC Trazodone HCl (Desyrel) 150 mg QHSP PRN PO INSOMNIA Last administered on 20:13; Start 10/01/16 at 12:45; Stop 10/02/16 at 10:14; Status DC Tuberculin PPD (Aplisol, Ppd) 5 units 1T@10 ID Last administered on 09/27/16 16 :23; Start 09/27/16 at 10:00; Stop 09/27/16 at 23:59; Status DC Allergies Coded Allergies: Haloperidol (Verified Adverse Reaction, Severe, SEVERE DYSTONIA, 09/26/16) Risperidone (Verified Adverse Reaction, Severe, SEVERE DYSTONIA, 09/26/16) Ziprasidone (Verified Adverse Reaction, Severe, SEVERE DYSTONIA, 09/26/16) Divina Adame October 18, 2016 10:50
[2016-10-18 18:00] VITALS: BP 135/79
[2016-10-18] MEDS: hydrOXYzine 50 MG TAB PO PRN (20:06)
[2016-10-18] MEDS: traZODone 100 MG TAB PO PRN (20:06)
[2016-10-18] MEDS: cloNIDine 0.1 MG TAB PO PRN (20:06)
[2016-10-18] MEDS: PROPRANOLOL 20 MG TAB PO SCH (20:06)
[2016-10-18] MEDS: ATORVASTATIN 20 MG TAB PO SCH (20:07)
[2016-10-18] MEDS: ACETAMINOPHEN TAB 650MG DOSE (2X325MG) PO PRN (20:07)
[2016-10-18] MEDS ORDERED: chlordiazePOXIDE 25 MG CAP PO SCH (21:00)
[2016-10-19] MEDS: LEVOTHYROXINE 0.1 MG TAB (100 MCG) PO SCH (06:16)
[2016-10-19 06:27] VITALS: BP 143/78
[2016-10-19] MEDS: buPROPion **XL** TABLET 150MG (WELLBUTRIN XL) PO SCH (09:20)
[2016-10-19] MEDS: PROPRANOLOL 60 MG LA CAP PO SCH (09:21)
[2016-10-19] MEDS: OMEPRAZOLE 20 MG CAP PO SCH (09:21)
[2016-10-19] MEDS: GABAPENTIN 300 MG CAP PO SCH ×2 (09:21→20:19)
[2016-10-19] MEDS: IBUPROFEN 600 MG TAB PO PRN ×2 (09:21→20:20)
[2016-10-19] MEDS: PARoxetine 20 MG TAB PO SCH (09:21)
[2016-10-19] MEDS: cloNIDine 0.1 MG TAB PO PRN (14:56)
[2016-10-19 18:00] VITALS: BP 134/81
[2016-10-19] MEDS: ATORVASTATIN 20 MG TAB PO SCH (20:19)
[2016-10-19] MEDS: PROPRANOLOL 20 MG TAB PO SCH (20:19)
[2016-10-19] MEDS: traZODone 100 MG TAB PO PRN (20:19)
[2016-10-20 06:00] VITALS: BP 123/66
[2016-10-20] MEDS: LEVOTHYROXINE 0.1 MG TAB (100 MCG) PO SCH (06:00)
[2016-10-20] MEDS: GABAPENTIN 300 MG CAP PO SCH ×2 (09:08→20:05)
[2016-10-20] MEDS: PROPRANOLOL 60 MG LA CAP PO SCH (09:08)
[2016-10-20] MEDS: buPROPion **XL** TABLET 150MG (WELLBUTRIN XL) PO SCH (09:08)
[2016-10-20] MEDS: OMEPRAZOLE 20 MG CAP PO SCH (09:08)
[2016-10-20] MEDS: PARoxetine 20 MG TAB PO SCH (09:08)
[2016-10-20 18:00] VITALS: BP 116/59
[2016-10-20] MEDS: traZODone 100 MG TAB PO PRN (20:05)
[2016-10-20] MEDS: PROPRANOLOL 20 MG TAB PO SCH (20:05)
[2016-10-20] MEDS: ATORVASTATIN 20 MG TAB PO SCH (20:05)
[2016-10-20] MEDS: IBUPROFEN 600 MG TAB PO PRN (20:06)
[2016-10-21] MEDS: LEVOTHYROXINE 0.1 MG TAB (100 MCG) PO SCH (05:55)
[2016-10-21 06:00] VITALS: BP 127/75
[2016-10-21] MEDS: OMEPRAZOLE 20 MG CAP PO SCH (09:49)
[2016-10-21] MEDS: GABAPENTIN 300 MG CAP PO SCH ×2 (09:49→21:10)
[2016-10-21] MEDS: PARoxetine 20 MG TAB PO SCH (09:49)
[2016-10-21] MEDS: buPROPion **XL** TABLET 150MG (WELLBUTRIN XL) PO SCH (09:50)
[2016-10-21] MEDS: PROPRANOLOL 60 MG LA CAP PO SCH (09:50)
[2016-10-21] MEDS: IBUPROFEN 600 MG TAB PO PRN ×2 (15:16→21:11)
[2016-10-21 18:00] VITALS: BP 138/79
[2016-10-21] MEDS: traZODone 100 MG TAB PO PRN (21:09)
[2016-10-21] MEDS: PROPRANOLOL 20 MG TAB PO SCH (21:10)
[2016-10-21] MEDS: ATORVASTATIN 20 MG TAB PO SCH (21:10)
[2016-10-22] MEDS: LEVOTHYROXINE 0.1 MG TAB (100 MCG) PO SCH (06:05)
[2016-10-22 06:17] VITALS: BP 123/76
[2016-10-22] MEDS: PARoxetine 20 MG TAB PO SCH (09:35)
[2016-10-22] MEDS: PROPRANOLOL 60 MG LA CAP PO SCH (09:35)
[2016-10-22] MEDS: buPROPion **XL** TABLET 150MG (WELLBUTRIN XL) PO SCH (09:35)
[2016-10-22] MEDS: GABAPENTIN 300 MG CAP PO SCH ×2 (09:35→20:01)
[2016-10-22] MEDS: OMEPRAZOLE 20 MG CAP PO SCH (09:36)
--- NOTE | 2016-10-22 10:27 | IPNPDOC ---
Subjective Date Seen The patient was seen on 10/22/16. Subjective Chief Complaint/HPI The patient is a 36-year-old male admitted with a reason for visit of Major Depression. Events since last encounter Requested to evaluate Pt for Rt Hand pain. Pt states he is concerned because he has more pain in his rt hand than he was experiencing previously. It is radiating to the wrist area. He does not recall lying on it overnight. No skin lesions or erythema. No paresthesia. Denies shoulder pain today and states that it is controlled. He is noted to have mild edema of the right hand, this is chronic. Objective Physical Examination General Exam: Positive: Alert Eye Exam: Positive: PERRLA ENT Exam: Positive: Atraumatic Neck Exam: Positive: Supple Extremity Exam: Positive: Other (Rt hand TTP diffusely. No warmth, no rash, erythema. Mild edema noted, this has been chronic. ) Skin Exam: Positive: Nl turgor and temperature Assessment /Plan Problems (1) Chronic pain in shoulder Status: Acute Problem Text: * Gabapentin as per PCP 300mgBID. * pain mgmt opinion 10/07/16 . * Cont outpt F/U with PCP, Ortho, Wound care, Pain management. * Pt established with Dr Alvares 09/11/16 and was referred to pain management at that time for any further recommendations. (2) Edema of upper extremity Status: Acute Problem Text: * no significant change. * Pt c/o Rt hand pain. * XR Rt hand * CBCd/CMP/CRP requested. * Last U/S 09/26/16, consider updating pending results. Plan/VTE VTE Prophylaxis Ordered?: No (ambulatory) VS, I&O, 24H, Fishbone Vital Signs/I&O Vital Signs Date Time Temp Pulse Resp B/P (MAP) Pulse Ox O2 Delivery O2 Flow Rate FiO2 10/22/16 09:35 72 145/97 10/22/16 06:17 98.2 16 10/16/16 18:00 Room Air Carleen Cole October 22, 2016 10:27
[2016-10-22 11:26] LABS: BASO % 0.7 % (0.0-1.0); EOS # 0.1 K/mm3 (0.0-0.50); EOS % 2.1 % (0.0-3.0); LARGE UNSTAINED CELL # 0.2 K/mm3 (0.0-0.4); LARGE UNSTAINED CELL % 2.4 % (0.0-4.0); LYMPH # 1.8 K/mm3 (1.5-4.5); LYMPH % 27.9 % (24.0-44.0); MEAN CORPUSCULAR HEMOGLOBIN 32.5 pg (27.0-33.0); MEAN CORPUSCULAR HGB CONC 33.7 g/dl (32.0-36.5); MEAN CORPUSCULAR VOLUME 96.6 fl (80.0-96.0); MONO # 0.4 K/mm3 (0.0-0.8); MONO % 6.6 % (0.0-5.0); NEUTROPHILS % 60.3 % (36.0-66.0); PLATELET COUNT, AUTOMATED 160 k/mm3 (150-450); RED CELL DISTRIBUTION WIDTH 13.7 % (11.5-14.5); WHITE BLOOD COUNT 6.5 K/mm3 (4.0-10.0)
[2016-10-22 11:50] LABS: ALBUMIN 3.4 GM/DL (3.2-5.2); ALBUMIN/GLOBULIN RATIO 0.92 (1.00-1.93); ALKALINE PHOSPHATASE 61 U/L (45-117); ALT/SGPT 119 U/L (12-78); ANION GAP 7 MEQ/L (8-16); AST/SGOT 58 U/L (15-37); BILIRUBIN,TOTAL 0.4 MG/DL (0.2-1.0); BLOOD UREA NITROGEN 15 MG/DL (7-18); CALCIUM LEVEL 8.6 MG/DL (8.5-10.1); CARBON DIOXIDE LEVEL 29 MEQ/L (21-32); CHLORIDE LEVEL 105 MEQ/L (98-107); GLOMERULAR FILTRATION RATE > 60.0 (>60); GLUCOSE, FASTING 87 MG/DL (70-105); POTASSIUM SERUM 4.3 MEQ/L (3.5-5.1); SODIUM LEVEL 141 MEQ/L (136-145); TOTAL PROTEIN 7.1 GM/DL (6.4-8.2)
[2016-10-22] MEDS: IBUPROFEN 600 MG TAB PO PRN ×2 (12:16→20:01)
--- NOTE | 2016-10-22 15:02 | REP ---
RIGHT HAND, FOUR VIEWS: HISTORY: Pain. COMPARISON: 07/27/2016 There is no acute fracture or dislocation. The joint spaces are normal in appearance. IMPRESSION: There is no acute fracture or dislocation. Signed by Thompson Guerar MD 10/22/2016 03:12 P
--- NOTE | 2016-10-22 17:49 | REP ---
RIGHT UPPER EXTREMITY ULTRASOUND: HISTORY: Pain and swelling. COMPARISON: None. TECHNIQUE: Multiple ultrasonographic images of the deep venous structures of the right upper extremity were obtained to rule out deep venous thrombosis. FINDINGS: There is no abnormal echogenic material seen in any of the visualized deep venous structures of the right upper extremity. Coaptation where applicable is appropriate throughout. Augmentation shows an expected response throughout. IMPRESSION: Negative exam. Signed by Cain Gutierrez DO 10/22/2016 06:04 P
[2016-10-22 18:14] VITALS: BP 141/38
[2016-10-22] MEDS: PROPRANOLOL 20 MG TAB PO SCH (20:00)
[2016-10-22] MEDS: ATORVASTATIN 20 MG TAB PO SCH (20:00)
[2016-10-22] MEDS: traZODone 100 MG TAB PO PRN (20:01)
[2016-10-22] MEDS: TOPIRAMATE (TopAMAX) 25 MG TAB PO SCH (20:01)
--- NOTE | 2016-10-22 21:08 | MHIPNPDOC ---
[facility] Progress Note Progress Note DATE OF SERVICE: 10/22/16 INTERVAL HISTORY: Medication Side effects: reports no side effects from his current medications Behavior/events: continues to the interactive and the milieu Group Attendance: as attended groups Psychiatric Symptoms: reports that he still experiences night terrors and that this causes him to have difficulty sleeping. He describes this makes his mood more irritable and depressed during the daytime. He describes he feels anxious about going to rehab with his night terrors and very splashing during the night. Describes the prazosin and other standard treatments been ineffective in the past. He states that he had a neurologist prescribing antiseizure medicine that was effective. VITAL SIGNS: See below. NEW TEST RESULTS: See below CURRENT MEDICATIONS: See below. MENTAL STATUS EXAMINATION: General: Well dressed with good hygiene Speech: Spontaneous and fluid Thought processes: Linear and logical Thought content: concerned about sleep Abstract reasoning, and computation: Intact Description of associations: Intact Description of abnormal or psychotic thoughts:Denies any suicidal or homicidal ideation. Denies any auditory or visual hallucinations. Does not appear to be responding to internal stimuli. Does not appear to be endorsing any bizarre or paranoid ideation. Judgment: limited Insight: limited Orientation: Alert and orientated 3 Recent and remote memory: Intact Attention span and concentration: Intact Fund of knowledge: Adequate Mood: "okay" Affect: mildly dysthymic a constricted range DIAGNOSES: 1. Unspecified depressive disorder. 2. Opioid disorder, severe, in early remission. ASSESSMENT: the patient appears to be improving as he prepares to go to rehab for his opioid use disorder. MANAGEMENT PLAN: Medications: continue psychiatric medications as below. Will add Topamax 25 mg nightly for night terrors. Recommend sleep study when patient goes outpatient Psychotherapy: encourage group therapy Social: planning placement for rehab Misc: none Disposition: The patient will need of further inpatient stay to address disposition and transfer to rehab. TIME SPENT: 15 minutes. Vital Signs Vital Signs Date Time Temp Pulse Resp B/P (MAP) Pulse Ox O2 Delivery O2 Flow Rate FiO2 10/22/16 20:00 147/88 10/22/16 18:14 97.4 71 16 10/16/16 18:00 Room Air Laboratory Data 24H Labs Laboratory Tests 2 10/22/16 10:50: White Blood Count 6.5, Red Blood Count 4.72, Hemoglobin 15.4, Hematocrit 45.6, Mean Corpuscular Volume 96.6H, Mean Corpuscular Hemoglobin 32.5, Mean Corpuscular Hemoglobin Concent 33.7, Red Cell Distribution Width 13.7, Platelet Count 160, Neutrophils (%) (Auto) 60.3, Lymphocytes (%) (Auto) 27.9, Monocytes ( %) (Auto) 6.6H, Eosinophils (%) (Auto) 2.1, Basophils (%) (Auto) 0.7, Neutrophils # (Auto) 4.0, Lymphocytes # (Auto) 1.8, Monocytes # (Auto) 0.4, Eosinophils # (Auto) 0.1, Basophils # (Auto) 0.0, Large Unclassified Cells % 2.4 , Large Unclassified Cells # 0.2, Anion Gap 7L, Glomerular Filtration Rate > 60.0, Blood Urea Nitrogen 15, Creatinine 0.70, Sodium Level 141, Potassium Level 4.3, Chloride Level 105, Carbon Dioxide Level 29, Calcium Level 8.6, Aspartate Amino Transf (AST/SGOT) 58H, Alanine Aminotransferase (ALT/SGPT) 119H , Alkaline Phosphatase 61, Total Bilirubin 0.4, Total Protein 7.1, Albumin 3.4, C-Reactive Protein, Quantitative 0.32H, Albumin/Globulin Ratio 0.92L CBC/BMP Laboratory Tests 10/22/16 10:50 Red Blood Count 4.72, Mean Corpuscular Volume 96.6 H, Mean Corpuscular Hemoglobin 32.5, Mean Corpuscular Hemoglobin Concent 33.7, Red Cell Distribution Width 13.7, Neutrophils (%) (Auto) 60.3, Lymphocytes (%) (Auto) 27.9, Monocytes (%) (Auto) 6.6 H, Eosinophils (%) (Auto) 2.1, Basophils (%) ( Auto) 0.7, Neutrophils # (Auto) 4.0, Lymphocytes # (Auto) 1.8, Monocytes # (Auto ) 0.4, Eosinophils # (Auto) 0.1, Basophils # (Auto) 0.0, Calcium Level 8.6, Aspartate Amino Transf (AST/SGOT) 58 H, Alanine Aminotransferase (ALT/SGPT) 119 H, Alkaline Phosphatase 61, Total Bilirubin 0.4, Total Protein 7.1, Albumin 3.4 Current Medications Current Medications Acetaminophen (Tylenol Tab) 650 mg Q6HP PRN PO HEADACHE or DISCOMFORT Last administered on 10/18/16 20:07; Start 09/26/16 at 19:00; Stop 10/26/16 at 18:59 Al Hydrox/Mg Hydrox/Simethicone (Mylanta) 30 ml Q4HP PRN PO HEARTBURN/ INDIGESTION; Start 09/26/16 at 19:00; Stop 10/26/16 at 18:59 Atorvastatin Calcium (Lipitor) 20 mg QHS PO Last administered on 10/22/16 20: 00; Start 09/27/16 at 21:00; Stop 10/27/16 at 20:59 Bupropion HCl (Wellbutrin Xl) 150 mg QAM PO Last administered on 10/22/16 09: 35; Start 09/27/16 at 09:00; Stop 10/27/16 at 08:59 Chlordiazepoxide (Librium) 25 mg BID PO Last administered on 10/17/16 21:18; Start 10/17/16 at 09:00; Stop 10/18/16 at 08:59; Status DC Chlordiazepoxide (Librium) 25 mg QHS PO Last administered on 10/18/16 20:07; Start 10/18/16 at 21:00; Stop 10/18/16 at 21:01; Status DC Chlordiazepoxide (Librium) 25 mg TID PO Last administered on 10/16/16 20:17; Start 10/16/16 at 09:00; Stop 10/17/16 at 08:59; Status DC Clonidine HCl (Catapres) 0.1 mg TID PRN PO withdrawal symptoms Last administered on 10/19/16 14:56; Start 10/04/16 at 14:15; Stop 11/03/16 at 14:14 Gabapentin (Neurontin) 300 mg BID PO Last administered on 10/22/16 20:01; Start 10/04/16 at 09:00; Stop 11/03/16 at 08:59 Home Med (Med Rec Complete!) ASDIRECTED XX ; Start 09/26/16 at 19:00; Stop at 19:01; Status DC Hydroxyzine HCl (Atarax) 25 mg TIDP PRN PO Anxiety Last administered on 16:21; Start 09/26/16 at 19:00; Stop 10/15/16 at 12:54; Status DC Hydroxyzine HCl (Atarax) 50 mg Q4HP PRN PO anxiety Last administered on 20:06; Start 10/15/16 at 13:00; Stop 11/14/16 at 12:59 Ibuprofen (Advil) 600 mg Q6HP PRN PO MODERATE PAIN (PS 5-7) Last administered on 10/22/16 20:01; Start 10/17/16 at 14:30; Stop 11/16/16 at 14:29 Levothyroxine Sodium (Synthroid) 0.1 mg DAILY@0600 PO Last administered on 10/22 06:05; Start 09/28/16 at 06:00; Stop 10/28/16 at 05:59 Magnesium Hydroxide (Milk Of Magnesia) 30 ml DAILYPRN PRN PO CONSTIPATION; Start 09/26/16 at 19:00; Stop 10/26/16 at 18:59 Mirtazapine (Remeron) 15 mg QHS PO Last administered on 10/06/16 20:12; Start 10/02/16 at 21:00; Stop 10/08/16 at 09:23; Status DC Mirtazapine (Remeron) 15 mg QHS PO Last administered on 10/14/16 20:15; Start 10/08/16 at 21:00; Stop 10/16/16 at 10:23; Status DC Non-Formulary Medication ( See Comment Field Below ) SEE COMMENTS SECTION 1T @10 XX ; Start 09/29/16 at 10:00; Stop 09/30/16 at 09:59; Status UNV Non-Formulary Medication ( See Comment Field Below ) SEE LABEL COMMENTS DAILY XX ; Start 09/27/16 at 09:00; Stop 09/27/16 at 12:07; Status DC Non-Formulary Medication ( See Comment Field Below ) SEE LABEL COMMENTS SECTION 1T@10 XX Last administered on 09/29/16 09:55; Start 09/29/16 at 10:00; Stop 09/29/16 at 23:59; Status DC Omeprazole (PriLOSEC) 20 mg DAILY PO Last administered on 10/22/16 09:36; Start 09/28/16 at 09:00; Stop 10/28/16 at 08:59 Oxycodone HCl (Roxicodone, Oxyir) 5 mg Q6HP PRN PO PAIN Last administered on 21:09; Start 10/12/16 at 14:00; Stop 10/15/16 at 12:54; Status DC Oxycodone HCl (Roxicodone, Oxyir) 10 mg Q6HP PRN PO SEVERE PAIN (PS 8-10) Last administered on 10/12/16 09:31; Start 10/09/16 at 14:15; Stop 10/12/16 at 14:00 ; Status DC Oxycodone HCl (Roxicodone, Oxyir) 15 mg Q6HP PRN PO SEVERE PAIN (PS 8-10) Last administered on 10/09/16 08:57; Start 10/04/16 at 14:15; Stop 10/09/16 at 14:16 ; Status DC Oxycodone HCl (Roxicodone, Oxyir) 20 mg Q6HP PRN PO PAIN Last administered on 09:18; Start 09/27/16 at 10:45; Stop 10/04/16 at 14:07; Status DC Paroxetine HCl (PAXil) 40 mg DAILY PO Last administered on 10/22/16 09:35; Start 09/27/16 at 09:00; Stop 10/27/16 at 08:59 Propranolol HCl (Inderal La) 120 mg DAILY PO Last administered on 10/22/16 09: 35; Start 09/28/16 at 09:00; Stop 10/28/16 at 08:59 Propranolol HCl (Inderal) 10 mg QHS PO Last administered on 10/08/16 21:17; Start 10/08/16 at 21:00; Stop 10/09/16 at 14:12; Status DC Propranolol HCl (Inderal) 20 mg QHS PO Last administered on 10/22/16 20:00; Start 10/09/16 at 21:00; Stop 11/08/16 at 20:59 Sertraline HCl (Zoloft) 50 mg QAM PO ; Start 09/27/16 at 09:00; Stop 10/27/16 at 08:59; Status Cancel Topiramate (TopAMAX) 25 mg QHS PO Last administered on 10/22/16 20:01; Start 10/22/16 at 21:00; Stop 11/21/16 at 20:59 Trazodone HCl (Desyrel) 25 mg QHSP PRN PO INSOMNIA; Start 09/26/16 at 23:30; Stop 10/26/16 at 23:29; Status Cancel Trazodone HCl (Desyrel) 50 mg QHSP PRN PO INSOMNIA Last administered on 21:47; Start 09/26/16 at 19:00; Stop 09/26/16 at 23:16; Status DC Trazodone HCl (Desyrel) 100 mg QHSP PRN PO INSOMNIA Last administered on 20:01; Start 10/16/16 at 10:30; Stop 11/15/16 at 10:29 Trazodone HCl (Desyrel) 100 mg QHSP PRN PO INSOMNIA Last administered on 19:58; Start 09/26/16 at 23:30; Stop 10/01/16 at 12:38; Status DC Trazodone HCl (Desyrel) 150 mg QHSP PRN PO INSOMNIA Last administered on 20:13; Start 10/01/16 at 12:45; Stop 10/02/16 at 10:14; Status DC Tuberculin PPD (Aplisol, Ppd) 5 units 1T@10 ID Last administered on 09/27/16 16 :23; Start 09/27/16 at 10:00; Stop 09/27/16 at 23:59; Status DC Allergies Coded Allergies: Haloperidol (Verified Adverse Reaction, Severe, SEVERE DYSTONIA, 09/26/16) Risperidone (Verified Adverse Reaction, Severe, SEVERE DYSTONIA, 09/26/16) Ziprasidone (Verified Adverse Reaction, Severe, SEVERE DYSTONIA, 09/26/16) GME ATTESTATION My preceptor for this patient encounter was physically present in the building during the encounter and was fully available. As needed, all aspects of the patient interview, examination, medical decision making process, and medical care plan development were reviewed and approved by the preceptor. Preceptor is aware and concurs with the plan as stated in the body of this note and will attest to such by his/her cosignature. NATI ABREU DO October 22, 2016 21:08
[2016-10-23] MEDS: IBUPROFEN 600 MG TAB PO PRN ×3 (02:42→21:07)
[2016-10-23] MEDS: ACETAMINOPHEN TAB 650MG DOSE (2X325MG) PO PRN ×2 (03:11→17:13)
[2016-10-23] MEDS: LEVOTHYROXINE 0.1 MG TAB (100 MCG) PO SCH (05:54)
[2016-10-23 06:28] VITALS: BP 132/80
[2016-10-23] MEDS: buPROPion **XL** TABLET 150MG (WELLBUTRIN XL) PO SCH (10:25)
[2016-10-23] MEDS: PROPRANOLOL 60 MG LA CAP PO SCH (10:25)
[2016-10-23] MEDS: PARoxetine 20 MG TAB PO SCH (10:25)
[2016-10-23] MEDS: OMEPRAZOLE 20 MG CAP PO SCH (10:25)
[2016-10-23] MEDS: GABAPENTIN 300 MG CAP PO SCH ×2 (10:25→21:06)
--- NOTE | 2016-10-23 13:05 | MHIPNPDOC ---
[facility] Progress Note Progress Note DATE OF SERVICE: 10/23/16 HISTORY: day 28 of admission, lots of somatic type complaints VITAL SIGNS: See below. NEW TEST RESULTS: none CURRENT MEDICATIONS: See below. MENTAL STATUS EXAMINATION: Patient is a 36-year old male, who is alert, appropriately attired, unshaven, cooperative. Speech: Is spontaneous Language skills are intact Thought processes including: no delusions, obsessions or compulsions Thought content: focused on night terrors and hand pain. Abstract reasoning, and computation: good Description of associations: good. Description of abnormal or psychotic thoughts: no psychotic symptoms, denies SI and HI. Judgment: poor Insight: poor Orientation: well oriented. Recent and remote memory: intact. Attention span and concentration: adequate but varies Fund of knowledge: full Mood: irritated about night terrors, slow progress with [place]. Affect : congruent. DIAGNOSES: 1. MDD severe, recurrent without psychotic features 2. Sedative, hypnotic and opiate dependency. 3. ADHD by history 4. Panic disorder by history 5. PTSD by history ASSESSMENT:pt reporting "terrible night terrors". Pt approached Dr. Jhonny Wilhelm for medication and he was prescribed topiramate. Pt may need sleep study to get to the cause of then night terrors.Pt also seen by PA for c/o shoulder and hand pain MANAGEMENT PLAN: continue medications, add prazosin at hs but stop clonidine tid. No withdrawal symptoms currently observed. TIME SPENT: 30 minutes. Vital Signs Vital Signs Date Time Temp Pulse Resp B/P (MAP) Pulse Ox O2 Delivery O2 Flow Rate FiO2 10/23/16 11:51 18 10/23/16 10:25 65 132/80 10/23/16 06:28 98.0 Current Medications Current Medications Acetaminophen (Tylenol Tab) 650 mg Q6HP PRN PO HEADACHE or DISCOMFORT Last administered on 10/23/16 03:11; Start 09/26/16 at 19:00; Stop 10/26/16 at 18:59 Al Hydrox/Mg Hydrox/Simethicone (Mylanta) 30 ml Q4HP PRN PO HEARTBURN/ INDIGESTION; Start 09/26/16 at 19:00; Stop 10/26/16 at 18:59 Atorvastatin Calcium (Lipitor) 20 mg QHS PO Last administered on 10/22/16 20: 00; Start 09/27/16 at 21:00; Stop 10/27/16 at 20:59 Bupropion HCl (Wellbutrin Xl) 150 mg QAM PO Last administered on 10/23/16 10: 25; Start 09/27/16 at 09:00; Stop 10/27/16 at 08:59 Chlordiazepoxide (Librium) 25 mg BID PO Last administered on 10/17/16 21:18; Start 10/17/16 at 09:00; Stop 10/18/16 at 08:59; Status DC Chlordiazepoxide (Librium) 25 mg QHS PO Last administered on 10/18/16 20:07; Start 10/18/16 at 21:00; Stop 10/18/16 at 21:01; Status DC Chlordiazepoxide (Librium) 25 mg TID PO Last administered on 10/16/16 20:17; Start 10/16/16 at 09:00; Stop 10/17/16 at 08:59; Status DC Clonidine HCl (Catapres) 0.1 mg TID PRN PO withdrawal symptoms Last administered on 10/19/16 14:56; Start 10/04/16 at 14:15; Stop 10/23/16 at 12:37 ; Status DC Gabapentin (Neurontin) 300 mg BID PO Last administered on 10/23/16 10:25; Start 10/04/16 at 09:00; Stop 11/03/16 at 08:59 Home Med (Med Rec Complete!) ASDIRECTED XX ; Start 09/26/16 at 19:00; Stop at 19:01; Status DC Hydroxyzine HCl (Atarax) 25 mg TIDP PRN PO Anxiety Last administered on 16:21; Start 09/26/16 at 19:00; Stop 10/15/16 at 12:54; Status DC Hydroxyzine HCl (Atarax) 50 mg Q4HP PRN PO anxiety Last administered on 20:06; Start 10/15/16 at 13:00; Stop 11/14/16 at 12:59 Ibuprofen (Advil) 600 mg Q6HP PRN PO MODERATE PAIN (PS 5-7) Last administered on 10/23/16 02:42; Start 10/17/16 at 14:30; Stop 11/16/16 at 14:29 Levothyroxine Sodium (Synthroid) 0.1 mg DAILY@0600 PO Last administered on 10/23 05:54; Start 09/28/16 at 06:00; Stop 10/28/16 at 05:59 Magnesium Hydroxide (Milk Of Magnesia) 30 ml DAILYPRN PRN PO CONSTIPATION; Start 09/26/16 at 19:00; Stop 10/26/16 at 18:59 Mirtazapine (Remeron) 15 mg QHS PO Last administered on 10/06/16 20:12; Start 10/02/16 at 21:00; Stop 10/08/16 at 09:23; Status DC Mirtazapine (Remeron) 15 mg QHS PO Last administered on 10/14/16 20:15; Start 10/08/16 at 21:00; Stop 10/16/16 at 10:23; Status DC Non-Formulary Medication ( See Comment Field Below ) SEE COMMENTS SECTION 1T @10 XX ; Start 09/29/16 at 10:00; Stop 09/30/16 at 09:59; Status UNV Non-Formulary Medication ( See Comment Field Below ) SEE LABEL COMMENTS DAILY XX ; Start 09/27/16 at 09:00; Stop 09/27/16 at 12:07; Status DC Non-Formulary Medication ( See Comment Field Below ) SEE LABEL COMMENTS SECTION 1T@10 XX Last administered on 09/29/16 09:55; Start 09/29/16 at 10:00; Stop 09/29/16 at 23:59; Status DC Omeprazole (PriLOSEC) 20 mg DAILY PO Last administered on 10/23/16 10:25; Start 09/28/16 at 09:00; Stop 10/28/16 at 08:59 Oxycodone HCl (Roxicodone, Oxyir) 5 mg Q6HP PRN PO PAIN Last administered on 21:09; Start 10/12/16 at 14:00; Stop 10/15/16 at 12:54; Status DC Oxycodone HCl (Roxicodone, Oxyir) 10 mg Q6HP PRN PO SEVERE PAIN (PS 8-10) Last administered on 10/12/16 09:31; Start 10/09/16 at 14:15; Stop 10/12/16 at 14:00 ; Status DC Oxycodone HCl (Roxicodone, Oxyir) 15 mg Q6HP PRN PO SEVERE PAIN (PS 8-10) Last administered on 10/09/16 08:57; Start 10/04/16 at 14:15; Stop 10/09/16 at 14:16 ; Status DC Oxycodone HCl (Roxicodone, Oxyir) 20 mg Q6HP PRN PO PAIN Last administered on 09:18; Start 09/27/16 at 10:45; Stop 10/04/16 at 14:07; Status DC Paroxetine HCl (PAXil) 40 mg DAILY PO Last administered on 10/23/16 10:25; Start 09/27/16 at 09:00; Stop 10/27/16 at 08:59 Prazosin HCl (Minipress) 1 mg QHS PO ; Start 10/23/16 at 21:00; Stop 11/22/16 at 20:59 Propranolol HCl (Inderal La) 120 mg DAILY PO Last administered on 10/23/16 10: 25; Start 09/28/16 at 09:00; Stop 10/28/16 at 08:59 Propranolol HCl (Inderal) 10 mg QHS PO Last administered on 10/08/16 21:17; Start 10/08/16 at 21:00; Stop 10/09/16 at 14:12; Status DC Propranolol HCl (Inderal) 20 mg QHS PO Last administered on 10/22/16 20:00; Start 10/09/16 at 21:00; Stop 11/08/16 at 20:59 Sertraline HCl (Zoloft) 50 mg QAM PO ; Start 09/27/16 at 09:00; Stop 10/27/16 at 08:59; Status Cancel Topiramate (TopAMAX) 25 mg QHS PO Last administered on 10/22/16 20:01; Start 10/22/16 at 21:00; Stop 11/21/16 at 20:59 Trazodone HCl (Desyrel) 25 mg QHSP PRN PO INSOMNIA; Start 09/26/16 at 23:30; Stop 10/26/16 at 23:29; Status Cancel Trazodone HCl (Desyrel) 50 mg QHSP PRN PO INSOMNIA Last administered on 21:47; Start 09/26/16 at 19:00; Stop 09/26/16 at 23:16; Status DC Trazodone HCl (Desyrel) 100 mg QHSP PRN PO INSOMNIA Last administered on 20:01; Start 10/16/16 at 10:30; Stop 11/15/16 at 10:29 Trazodone HCl (Desyrel) 100 mg QHSP PRN PO INSOMNIA Last administered on 19:58; Start 09/26/16 at 23:30; Stop 10/01/16 at 12:38; Status DC Trazodone HCl (Desyrel) 150 mg QHSP PRN PO INSOMNIA Last administered on 20:13; Start 10/01/16 at 12:45; Stop 10/02/16 at 10:14; Status DC Tuberculin PPD (Aplisol, Ppd) 5 units 1T@10 ID Last administered on 09/27/16 16 :23; Start 09/27/16 at 10:00; Stop 09/27/16 at 23:59; Status DC Allergies Coded Allergies: Haloperidol (Verified Adverse Reaction, Severe, SEVERE DYSTONIA, 09/26/16) Risperidone (Verified Adverse Reaction, Severe, SEVERE DYSTONIA, 09/26/16) Ziprasidone (Verified Adverse Reaction, Severe, SEVERE DYSTONIA, 09/26/16) Divina Adame October 23, 2016 13:05
[2016-10-23 18:34] VITALS: BP 142/76
[2016-10-23] MEDS: ATORVASTATIN 20 MG TAB PO SCH (21:05)
[2016-10-23] MEDS: TOPIRAMATE (TopAMAX) 25 MG TAB PO SCH (21:06)
[2016-10-23] MEDS: traZODone 100 MG TAB PO PRN (21:06)
[2016-10-23] MEDS: PROPRANOLOL 20 MG TAB PO SCH (21:06)
[2016-10-23] MEDS: PRAZOSIN 1 MG CAP PO SCH (21:06)
[2016-10-24] MEDS: hydrOXYzine 50 MG TAB PO PRN (00:10)
[2016-10-24] MEDS: ACETAMINOPHEN TAB 650MG DOSE (2X325MG) PO PRN (00:12)
[2016-10-24] MEDS: LEVOTHYROXINE 0.1 MG TAB (100 MCG) PO SCH (05:55)
[2016-10-24 06:11] VITALS: BP 127/62
[2016-10-24] MEDS: GABAPENTIN 300 MG CAP PO SCH ×2 (09:01→20:04)
[2016-10-24] MEDS: IBUPROFEN 600 MG TAB PO PRN ×2 (09:01→20:06)
[2016-10-24] MEDS: buPROPion **XL** TABLET 150MG (WELLBUTRIN XL) PO SCH (09:01)
[2016-10-24] MEDS: PROPRANOLOL 60 MG LA CAP PO SCH (09:02)
[2016-10-24] MEDS: OMEPRAZOLE 20 MG CAP PO SCH (09:02)
[2016-10-24] MEDS: PARoxetine 20 MG TAB PO SCH (09:02)
--- NOTE | 2016-10-24 14:22 | MHIPNPDOC ---
[facility] Progress Note Progress Note DATE OF SERVICE: 10/24/16 HISTORY: 29 day of admission. VITAL SIGNS: See below. NEW TEST RESULTS: na CURRENT MEDICATIONS: See below. MENTAL STATUS EXAMINATION: Patient is a 36-year old male, who is wearing hospital attire, unshaven, clean, cooperative Speech: Is spontaneous. Language skills are intact Thought processes including: goal directed Thought content: self focused Abstract reasoning, and computation: concrete Description of associations: relevant Description of abnormal or psychotic thoughts: denies SI, denies psychotic symptoms and none were illicited. Judgment: poor Insight: limited. Orientation: well oriented in all spheres. Recent and remote memory: intact Attention span and concentration: good Fund of knowledge: full Mood: depressed. Affect: congruent DIAGNOSES: 1. MDD, severe recurrent without psychotic features 2. Sedative, hypnotic and opiate dependency 3. ADHD by history 4. PTSD by history 5. Panic disorder by history 6. Alcohol dependence in remission ASSESSMENT:pt is continuing to report night terrors. We will stop the trazadone which is known to cause nightmares in some pts. He will begin low dose seroquel as pt reports akathesia with 100 mg of seroquel. Pt is not a candidate for controlled substances to help with sleep as he abuses them. It is recommended that pt have a sleep study once he is out of the hospital. Pt is med compliant and attend programming. MANAGEMENT PLAN: Pt is awaiting bed in a substance abuse treatment facility for his abuse of opiates, stimulants and benzodiazepines. TIME SPENT: 30 minutes. Vital Signs Vital Signs Date Time Temp Pulse Resp B/P (MAP) Pulse Ox O2 Delivery O2 Flow Rate FiO2 10/24/16 09:02 77 127/62 10/24/16 06:11 97.4 16 Room Air Current Medications Current Medications Acetaminophen (Tylenol Tab) 650 mg Q6HP PRN PO HEADACHE or DISCOMFORT Last administered on 10/24/16 00:12; Start 09/26/16 at 19:00; Stop 10/26/16 at 18:59 Al Hydrox/Mg Hydrox/Simethicone (Mylanta) 30 ml Q4HP PRN PO HEARTBURN/ INDIGESTION; Start 09/26/16 at 19:00; Stop 10/26/16 at 18:59 Atorvastatin Calcium (Lipitor) 20 mg QHS PO Last administered on 10/23/16 21: 05; Start 09/27/16 at 21:00; Stop 10/27/16 at 20:59 Bupropion HCl (Wellbutrin Xl) 150 mg QAM PO Last administered on 10/24/16 09:01 ; Start 09/27/16 at 09:00; Stop 10/27/16 at 08:59 Chlordiazepoxide (Librium) 25 mg BID PO Last administered on 10/17/16 21:18; Start 10/17/16 at 09:00; Stop 10/18/16 at 08:59; Status DC Chlordiazepoxide (Librium) 25 mg QHS PO Last administered on 10/18/16 20:07; Start 10/18/16 at 21:00; Stop 10/18/16 at 21:01; Status DC Chlordiazepoxide (Librium) 25 mg TID PO Last administered on 10/16/16 20:17; Start 10/16/16 at 09:00; Stop 10/17/16 at 08:59; Status DC Clonidine HCl (Catapres) 0.1 mg TID PRN PO withdrawal symptoms Last administered on 10/19/16 14:56; Start 10/04/16 at 14:15; Stop 10/23/16 at 12:37 ; Status DC Gabapentin (Neurontin) 300 mg BID PO Last administered on 10/24/16 09:01; Start 10/04/16 at 09:00; Stop 11/03/16 at 08:59 Home Med (Med Rec Complete!) ASDIRECTED XX ; Start 09/26/16 at 19:00; Stop at 19:01; Status DC Hydroxyzine HCl (Atarax) 25 mg TIDP PRN PO Anxiety Last administered on 16:21; Start 09/26/16 at 19:00; Stop 10/15/16 at 12:54; Status DC Hydroxyzine HCl (Atarax) 50 mg Q4HP PRN PO anxiety Last administered on 00:10; Start 10/15/16 at 13:00; Stop 11/14/16 at 12:59 Ibuprofen (Advil) 600 mg Q6HP PRN PO MODERATE PAIN (PS 5-7) Last administered on 10/24/16 09:01; Start 10/17/16 at 14:30; Stop 11/16/16 at 14:29 Levothyroxine Sodium (Synthroid) 0.1 mg DAILY@0600 PO Last administered on 05:55; Start 09/28/16 at 06:00; Stop 10/28/16 at 05:59 Magnesium Hydroxide (Milk Of Magnesia) 30 ml DAILYPRN PRN PO CONSTIPATION; Start 09/26/16 at 19:00; Stop 10/26/16 at 18:59 Mirtazapine (Remeron) 15 mg QHS PO Last administered on 10/06/16 20:12; Start 10/02/16 at 21:00; Stop 10/08/16 at 09:23; Status DC Mirtazapine (Remeron) 15 mg QHS PO Last administered on 10/14/16 20:15; Start 10/08/16 at 21:00; Stop 10/16/16 at 10:23; Status DC Non-Formulary Medication ( See Comment Field Below ) SEE COMMENTS SECTION 1T @10 XX ; Start 09/29/16 at 10:00; Stop 09/30/16 at 09:59; Status UNV Non-Formulary Medication ( See Comment Field Below ) SEE LABEL COMMENTS DAILY XX ; Start 09/27/16 at 09:00; Stop 09/27/16 at 12:07; Status DC Non-Formulary Medication ( See Comment Field Below ) SEE LABEL COMMENTS SECTION 1T@10 XX Last administered on 09/29/16 09:55; Start 09/29/16 at 10:00; Stop 09/29/16 at 23:59; Status DC Omeprazole (PriLOSEC) 20 mg DAILY PO Last administered on 10/24/16 09:02; Start 09/28/16 at 09:00; Stop 10/28/16 at 08:59 Oxycodone HCl (Roxicodone, Oxyir) 5 mg Q6HP PRN PO PAIN Last administered on 21:09; Start 10/12/16 at 14:00; Stop 10/15/16 at 12:54; Status DC Oxycodone HCl (Roxicodone, Oxyir) 10 mg Q6HP PRN PO SEVERE PAIN (PS 8-10) Last administered on 10/12/16 09:31; Start 10/09/16 at 14:15; Stop 10/12/16 at 14:00 ; Status DC Oxycodone HCl (Roxicodone, Oxyir) 15 mg Q6HP PRN PO SEVERE PAIN (PS 8-10) Last administered on 10/09/16 08:57; Start 10/04/16 at 14:15; Stop 10/09/16 at 14:16 ; Status DC Oxycodone HCl (Roxicodone, Oxyir) 20 mg Q6HP PRN PO PAIN Last administered on 09:18; Start 09/27/16 at 10:45; Stop 10/04/16 at 14:07; Status DC Paroxetine HCl (PAXil) 40 mg DAILY PO Last administered on 10/24/16 09:02; Start 09/27/16 at 09:00; Stop 10/27/16 at 08:59 Prazosin HCl (Minipress) 1 mg QHS PO Last administered on 10/23/16 21:06; Start 10/23/16 at 21:00; Stop 11/22/16 at 20:59 Propranolol HCl (Inderal La) 120 mg DAILY PO Last administered on 10/24/16 09: 02; Start 09/28/16 at 09:00; Stop 10/28/16 at 08:59 Propranolol HCl (Inderal) 10 mg QHS PO Last administered on 10/08/16 21:17; Start 10/08/16 at 21:00; Stop 10/09/16 at 14:12; Status DC Propranolol HCl (Inderal) 20 mg QHS PO Last administered on 10/23/16 21:06; Start 10/09/16 at 21:00; Stop 11/08/16 at 20:59 Quetiapine Fumarate (SEROquel) 50 mg QHS PO ; Start 10/24/16 at 21:00; Stop at 20:59 Sertraline HCl (Zoloft) 50 mg QAM PO ; Start 09/27/16 at 09:00; Stop 10/27/16 at 08:59; Status Cancel Topiramate (TopAMAX) 25 mg QHS PO Last administered on 5/31/17at 21:06; Start 10/22/16 at 21:00; Stop 11/21/16 at 20:59 Trazodone HCl (Desyrel) 25 mg QHSP PRN PO INSOMNIA; Start 09/26/16 at 23:30; Stop 10/26/16 at 23:29; Status Cancel Trazodone HCl (Desyrel) 50 mg QHSP PRN PO INSOMNIA Last administered on 21:47; Start 09/26/16 at 19:00; Stop 09/26/16 at 23:16; Status DC Trazodone HCl (Desyrel) 100 mg QHSP PRN PO INSOMNIA Last administered on 21:06; Start 10/16/16 at 10:30; Stop 10/24/16 at 09:52; Status DC Trazodone HCl (Desyrel) 100 mg QHSP PRN PO INSOMNIA Last administered on 19:58; Start 09/26/16 at 23:30; Stop 10/01/16 at 12:38; Status DC Trazodone HCl (Desyrel) 150 mg QHSP PRN PO INSOMNIA Last administered on 20:13; Start 10/01/16 at 12:45; Stop 10/02/16 at 10:14; Status DC Tuberculin PPD (Aplisol, Ppd) 5 units 1T@10 ID Last administered on 09/27/16 16 :23; Start 09/27/16 at 10:00; Stop 09/27/16 at 23:59; Status DC Allergies Coded Allergies: Haloperidol (Verified Adverse Reaction, Severe, SEVERE DYSTONIA, 09/26/16) Risperidone (Verified Adverse Reaction, Severe, SEVERE DYSTONIA, 09/26/16) Ziprasidone (Verified Adverse Reaction, Severe, SEVERE DYSTONIA, 09/26/16) Divina Adame Oct 24, 2016 14:22
[2016-10-24 18:00] VITALS: BP 131/75
[2016-10-24] MEDS: PROPRANOLOL 20 MG TAB PO SCH (20:03)
[2016-10-24] MEDS: TOPIRAMATE (TopAMAX) 25 MG TAB PO SCH (20:04)
[2016-10-24] MEDS: ATORVASTATIN 20 MG TAB PO SCH (20:04)
[2016-10-24] MEDS: PRAZOSIN 1 MG CAP PO SCH (20:04)
[2016-10-24] MEDS ORDERED: QUEtiapine FUMARATE 50 MG TAB PO SCH (21:00)
[2016-10-25] MEDS: IBUPROFEN 600 MG TAB PO PRN ×3 (02:24→16:26)
[2016-10-25 06:00] VITALS: BP 130/62
[2016-10-25] MEDS: LEVOTHYROXINE 0.1 MG TAB (100 MCG) PO SCH (06:08)
[2016-10-25] MEDS: PROPRANOLOL 60 MG LA CAP PO SCH (08:33)
[2016-10-25] MEDS: OMEPRAZOLE 20 MG CAP PO SCH (08:34)
[2016-10-25] MEDS: buPROPion **XL** TABLET 150MG (WELLBUTRIN XL) PO SCH (08:34)
[2016-10-25] MEDS: PARoxetine 20 MG TAB PO SCH (08:34)
[2016-10-25] MEDS: GABAPENTIN 300 MG CAP PO SCH ×2 (08:34→19:59)
--- NOTE | 2016-10-25 09:54 | MHIPNPDOC ---
[facility] Progress Note Progress Note DATE OF SERVICE: 10/25/16 HISTORY: day 30 of admission. night terrors and sleep issues remain problematic VITAL SIGNS: See below. NEW TEST RESULTS: na CURRENT MEDICATIONS: See below. MENTAL STATUS EXAMINATION: Patient is a 36-year old male, who is wearing street clothes, unshaven, bald, cooperative Speech: Is spontaneous Language skills are intact Thought processes including: goal directed Thought content: appropriate Abstract reasoning, and computation: good. Description of associations: good. Description of abnormal or psychotic thoughts: "If I leave the hospital I will use drugs and I may kill myself". Denies visual and auditory disturbances. No delusions noted. Judgment: poor Insight: fair. Orientation: oriented in all spheres. Recent and remote memory: intact Attention span and concentration: good Fund of knowledge: full Mood: depressed Affect: has range DIAGNOSES: 1. MDD, severe, recurrent without psychotic features 2. Sedative, hypnotic and opiate dependence 3. ADHD by history 4. PTSD by history 5. Panic disorder by history 6. Alcohol dependence in full remission ASSESSMENT:Pt reports no sleep last night with seroquel 50 mg. He requested the seroquel be increased to 75 mg. No other med changes needed at this time. Pt has been approved for treatment at [facility] beginning October 29. Pt is motivated for tx. Pt is attending therapeutic programming and actively participating. Pt interacts appropriately with staff and peers, hygiene is good. MANAGEMENT PLAN: Increase seroquel at hs. Pt will need sleep study at some point to evaluate REM stage sleep. Pt reports night terrors frequently. Pt will be discharged to [facility] on FridayOctober 29. for substance abuse treatment. TIME SPENT: 30 minutes. Vital Signs Vital Signs Date Time Temp Pulse Resp B/P (MAP) Pulse Ox O2 Delivery O2 Flow Rate FiO2 10/25/16 08:33 74 135/80 10/25/16 06:00 97.7 18 10/24/16 06:11 Room Air Current Medications Current Medications Acetaminophen (Tylenol Tab) 650 mg Q6HP PRN PO HEADACHE or DISCOMFORT Last administered on 10/24/16t 00:12; Start 09/26/16 at 19:00; Stop 10/26/16 at 18:59 Al Hydrox/Mg Hydrox/Simethicone (Mylanta) 30 ml Q4HP PRN PO HEARTBURN/ INDIGESTION; Start 09/26/16 at 19:00; Stop 10/26/16 at 18:59 Atorvastatin Calcium (Lipitor) 20 mg QHS PO Last administered on 10/24/16 20:04 ; Start 09/27/16 at 21:00; Stop 10/27/16 at 20:59 Bupropion HCl (Wellbutrin Xl) 150 mg QAM PO Last administered on 10/25/16 08:34 ; Start 09/27/16 at 09:00; Stop 10/27/16 at 08:59 Chlordiazepoxide (Librium) 25 mg BID PO Last administered on 10/17/16 21:18; Start 10/17/16 at 09:00; Stop 10/18/16 at 08:59; Status DC Chlordiazepoxide (Librium) 25 mg QHS PO Last administered on 10/18/16 20:07; Start 10/18/16 at 21:00; Stop 10/18/16 at 21:01; Status DC Chlordiazepoxide (Librium) 25 mg TID PO Last administered on 10/16/16 20:17; Start 10/16/16 at 09:00; Stop 10/17/16 at 08:59; Status DC Clonidine HCl (Catapres) 0.1 mg TID PRN PO withdrawal symptoms Last administered on 10/19/16 14:56; Start 10/04/16 at 14:15; Stop 10/23/16 at 12:37 ; Status DC Gabapentin (Neurontin) 300 mg BID PO Last administered on 10/25/16 08:34; Start 10/04/16 at 09:00; Stop 11/03/16 at 08:59 Home Med (Med Rec Complete!) ASDIRECTED XX ; Start 09/26/16 at 19:00; Stop at 19:01; Status DC Hydroxyzine HCl (Atarax) 25 mg TIDP PRN PO Anxiety Last administered on 16:21; Start 09/26/16 at 19:00; Stop 10/15/16 at 12:54; Status DC Hydroxyzine HCl (Atarax) 50 mg Q4HP PRN PO anxiety Last administered on 00:10; Start 10/15/16 at 13:00; Stop 11/14/16 at 12:59 Ibuprofen (Advil) 600 mg Q6HP PRN PO MODERATE PAIN (PS 5-7) Last administered on 10/25/16 02:24; Start 10/17/16 at 14:30; Stop 11/16/16 at 14:29 Levothyroxine Sodium (Synthroid) 0.1 mg DAILY@0600 PO Last administered on 06:08; Start 09/28/16 at 06:00; Stop 10/28/16 at 05:59 Magnesium Hydroxide (Milk Of Magnesia) 30 ml DAILYPRN PRN PO CONSTIPATION; Start 09/26/16 at 19:00; Stop 10/26/16 at 18:59 Mirtazapine (Remeron) 15 mg QHS PO Last administered on 10/06/16 20:12; Start 10/02/16 at 21:00; Stop 10/08/16 at 09:23; Status DC Mirtazapine (Remeron) 15 mg QHS PO Last administered on 10/14/16 20:15; Start 10/08/16 at 21:00; Stop 10/16/16 at 10:23; Status DC Non-Formulary Medication ( See Comment Field Below ) SEE COMMENTS SECTION 1T @10 XX ; Start 09/29/16 at 10:00; Stop 09/30/16 at 09:59; Status UNV Non-Formulary Medication ( See Comment Field Below ) SEE LABEL COMMENTS DAILY XX ; Start 09/27/16 at 09:00; Stop 09/27/16 at 12:07; Status DC Non-Formulary Medication ( See Comment Field Below ) SEE LABEL COMMENTS SECTION 1T@10 XX Last administered on 09/29/16 09:55; Start 09/29/16 at 10:00; Stop 09/29/16 at 23:59; Status DC Omeprazole (PriLOSEC) 20 mg DAILY PO Last administered on 10/25/16 08:34; Start 09/28/16 at 09:00; Stop 10/28/16 at 08:59 Oxycodone HCl (Roxicodone, Oxyir) 5 mg Q6HP PRN PO PAIN Last administered on 21:09; Start 10/12/16 at 14:00; Stop 10/15/16 at 12:54; Status DC Oxycodone HCl (Roxicodone, Oxyir) 10 mg Q6HP PRN PO SEVERE PAIN (PS 8-10) Last administered on 10/12/16 09:31; Start 10/09/16 at 14:15; Stop 10/12/16 at 14:00 ; Status DC Oxycodone HCl (Roxicodone, Oxyir) 15 mg Q6HP PRN PO SEVERE PAIN (PS 8-10) Last administered on 10/09/16 08:57; Start 10/04/16 at 14:15; Stop 10/09/16 at 14:16 ; Status DC Oxycodone HCl (Roxicodone, Oxyir) 20 mg Q6HP PRN PO PAIN Last administered on 09:18; Start 09/27/16 at 10:45; Stop 10/04/16 at 14:07; Status DC Paroxetine HCl (PAXil) 40 mg DAILY PO Last administered on 10/25/16 08:34; Start 09/27/16 at 09:00; Stop 10/27/16 at 08:59 Prazosin HCl (Minipress) 1 mg QHS PO Last administered on 10/24/16 20:04; Start 10/23/16 at 21:00; Stop 11/22/16 at 20:59 Propranolol HCl (Inderal La) 120 mg DAILY PO Last administered on 10/25/16 08: 33; Start 09/28/16 at 09:00; Stop 10/28/16 at 08:59 Propranolol HCl (Inderal) 10 mg QHS PO Last administered on 10/08/16 21:17; Start 10/08/16 at 21:00; Stop 10/09/16 at 14:12; Status DC Propranolol HCl (Inderal) 20 mg QHS PO Last administered on 10/24/16 20:03; Start 10/09/16 at 21:00; Stop 11/08/16 at 20:59 Quetiapine Fumarate (SEROquel) 50 mg QHS PO Last administered on 10/24/16 20:04 ; Start 10/24/16 at 21:00; Stop 11/23/16 at 20:59 Sertraline HCl (Zoloft) 50 mg QAM PO ; Start 09/27/16 at 09:00; Stop 10/27/16 at 08:59; Status Cancel Topiramate (TopAMAX) 25 mg QHS PO Last administered on 10/24/16 20:04; Start at 21:00; Stop 11/21/16 at 20:59 Trazodone HCl (Desyrel) 25 mg QHSP PRN PO INSOMNIA; Start 09/26/16 at 23:30; Stop 10/26/16 at 23:29; Status Cancel Trazodone HCl (Desyrel) 50 mg QHSP PRN PO INSOMNIA Last administered on 21:47; Start 09/26/16 at 19:00; Stop 09/26/16 at 23:16; Status DC Trazodone HCl (Desyrel) 100 mg QHSP PRN PO INSOMNIA Last administered on 21:06; Start 10/16/16 at 10:30; Stop 10/24/16 at 09:52; Status DC Trazodone HCl (Desyrel) 100 mg QHSP PRN PO INSOMNIA Last administered on 19:58; Start 09/26/16 at 23:30; Stop 10/01/16 at 12:38; Status DC Trazodone HCl (Desyrel) 150 mg QHSP PRN PO INSOMNIA Last administered on 20:13; Start 10/01/16 at 12:45; Stop 10/02/16 at 10:14; Status DC Tuberculin PPD (Aplisol, Ppd) 5 units 1T@10 ID Last administered on 09/27/16 16 :23; Start 09/27/16 at 10:00; Stop 09/27/16 at 23:59; Status DC Allergies Coded Allergies: Haloperidol (Verified Adverse Reaction, Severe, SEVERE DYSTONIA, 09/26/16) Risperidone (Verified Adverse Reaction, Severe, SEVERE DYSTONIA, 09/26/16) Ziprasidone (Verified Adverse Reaction, Severe, SEVERE DYSTONIA, 09/26/16) Divina Adame Oct 25, 2016 09:54
[2016-10-25 18:00] VITALS: BP 142/78
[2016-10-25] MEDS: QUEtiapine FUMARATE 25 MG TAB PO SCH (19:58)
[2016-10-25] MEDS: ATORVASTATIN 20 MG TAB PO SCH (19:58)
[2016-10-25] MEDS: PRAZOSIN 1 MG CAP PO SCH (19:58)
[2016-10-25] MEDS: PROPRANOLOL 20 MG TAB PO SCH (19:58)
[2016-10-25] MEDS: TOPIRAMATE (TopAMAX) 25 MG TAB PO SCH (19:59)
[2016-10-25] MEDS: ACETAMINOPHEN TAB 650MG DOSE (2X325MG) PO PRN (20:57)
[2016-10-25] MEDS: hydrOXYzine 50 MG TAB PO PRN (21:16)
[2016-10-26] MEDS: LEVOTHYROXINE 0.1 MG TAB (100 MCG) PO SCH (05:58)
[2016-10-26] MEDS: GABAPENTIN 300 MG CAP PO SCH ×2 (09:17→20:08)
[2016-10-26] MEDS: PROPRANOLOL 60 MG LA CAP PO SCH (09:17)
[2016-10-26] MEDS: OMEPRAZOLE 20 MG CAP PO SCH (09:17)
[2016-10-26] MEDS: PARoxetine 20 MG TAB PO SCH (09:17)
[2016-10-26] MEDS: buPROPion **XL** TABLET 150MG (WELLBUTRIN XL) PO SCH (09:17)
[2016-10-26] MEDS: IBUPROFEN 600 MG TAB PO PRN (16:18)
[2016-10-26 18:11] VITALS: BP 134/66
[2016-10-26] MEDS: ATORVASTATIN 20 MG TAB PO SCH (20:08)
[2016-10-26] MEDS: PRAZOSIN 1 MG CAP PO SCH (20:08)
[2016-10-26] MEDS: TOPIRAMATE (TopAMAX) 25 MG TAB PO SCH (20:09)
[2016-10-26] MEDS: PROPRANOLOL 20 MG TAB PO SCH (20:09)
[2016-10-26] MEDS: QUEtiapine FUMARATE 25 MG TAB PO SCH (20:09)
[2016-10-27 06:00] VITALS: BP 112/55
[2016-10-27] MEDS: LEVOTHYROXINE 0.1 MG TAB (100 MCG) PO SCH (06:18)
[2016-10-27] MEDS: buPROPion **XL** TABLET 150MG (WELLBUTRIN XL) PO SCH (08:35)
[2016-10-27] MEDS: GABAPENTIN 300 MG CAP PO SCH ×2 (08:35→19:56)
[2016-10-27] MEDS: PARoxetine 20 MG TAB PO SCH (08:35)
[2016-10-27] MEDS: PROPRANOLOL 60 MG LA CAP PO SCH (08:35)
[2016-10-27] MEDS: OMEPRAZOLE 20 MG CAP PO SCH (08:35)
[2016-10-27 18:00] VITALS: BP 131/71
[2016-10-27] MEDS: IBUPROFEN 600 MG TAB PO PRN (18:11)
[2016-10-27] MEDS: PROPRANOLOL 20 MG TAB PO SCH (19:56)
[2016-10-27] MEDS: PRAZOSIN 1 MG CAP PO SCH (19:56)
[2016-10-27] MEDS: TOPIRAMATE (TopAMAX) 25 MG TAB PO SCH (19:56)
[2016-10-27] MEDS: ATORVASTATIN 20 MG TAB PO SCH (19:56)
[2016-10-27] MEDS: QUEtiapine FUMARATE 25 MG TAB PO SCH (19:57)
[2016-10-28] MEDS: LEVOTHYROXINE 0.1 MG TAB (100 MCG) PO SCH (06:02)
[2016-10-28 06:43] VITALS: BP 143/81
[2016-10-28] MEDS: PARoxetine 20 MG TAB PO SCH (09:29)
[2016-10-28] MEDS: OMEPRAZOLE 20 MG CAP PO SCH (09:29)
[2016-10-28] MEDS: GABAPENTIN 300 MG CAP PO SCH ×2 (09:29→20:05)
[2016-10-28] MEDS: buPROPion **XL** TABLET 150MG (WELLBUTRIN XL) PO SCH (09:29)
[2016-10-28] MEDS: PROPRANOLOL 60 MG LA CAP PO SCH (09:29)
--- NOTE | 2016-10-28 14:58 | MHIPNPDOC ---
[facility] Progress Note Progress Note DATE OF SERVICE: 10/28/16 HISTORY: day 33 of admission. Pt discharge tomorrow for rehab/GABE tx at [facility]. VITAL SIGNS: See below. NEW TEST RESULTS: na CURRENT MEDICATIONS: See below. MENTAL STATUS EXAMINATION: Patient is a 36-year old male, who is clean shaven, dressed in hospital garb, makes good eye contact and is cooperative. Speech: Is clear and spontaneous Language skills are intact Thought processes including: linear Thought content: appropriate. Abstract reasoning, and computation: good. Description of associations: good. Description of abnormal or psychotic thoughts: none, denies si Judgment: good Insight: good. Orientation: well oriented Recent and remote memory: intact Attention span and concentration:good. Fund of knowledge: full Mood: euthymic. Affect: congruent with range. DIAGNOSES: 1. MDD, severe, recurrent without psychotic features. 2. Sedative, hypnotic and opiate dependence. ASSESSMENT: Brad states he is "motivated" for treatment at [facility]. He is not sure of his plans following discharge from there. He is going t ogive up his apartment in [place] and states he has very few things there. His furniture is second hand and his clothing is very limited. His mother prepared a box of things he will need and shipped it to [facility] already. Pt has some goals and is only 12 credits from a degree. He feels like it was good he had to wait 2 weeks for a bed as it gave him more time to detox from the substances he had been abusing. He continues to have "night terrors", thrashing about like in a seizure, calling out. he is afraid he will disturb his roommate and is very concerned about this. He asked for an increase in prazosin and states he is not concerned that his BB will get too low. We will try that tonight. No other med changes. Pt is attending groups, he participates in milieu activity. He is intelligent and articulate. With the proper support he can have a bright future. MANAGEMENT PLAN: discontinue prazosin `1 mg change to prazosin 4 mg. He is also on Inderal a.m. and p.m. Monitor for hypotension. discharge tomorrow. TIME SPENT: 30 minutes. Vital Signs Vital Signs Date Time Temp Pulse Resp B/P (MAP) Pulse Ox O2 Delivery O2 Flow Rate FiO2 10/28/16 09:29 69 153/95 10/28/16 06:43 97.4 18 10/24/16 06:11 Room Air Current Medications Current Medications Acetaminophen (Tylenol Tab) 650 mg Q6HP PRN PO HEADACHE or DISCOMFORT Last administered on 10/25/16 20:57; Start 09/26/16 at 19:00; Stop 11/24/16 at 18:59 Al Hydrox/Mg Hydrox/Simethicone (Mylanta) 30 ml Q4HP PRN PO HEARTBURN/ INDIGESTION; Start 09/26/16 at 19:00; Stop 11/24/16 at 18:59 Atorvastatin Calcium (Lipitor) 20 mg QHS PO Last administered on 10/27/16 19:56 ; Start 09/27/16 at 21:00; Stop 11/25/16 at 20:59 Bupropion HCl (Wellbutrin Xl) 150 mg QAM PO Last administered on 10/28/16 09:29 ; Start 09/27/16 at 09:00; Stop 11/25/16 at 08:59 Chlordiazepoxide (Librium) 25 mg BID PO Last administered on 10/17/16 21:18; Start 10/17/16 at 09:00; Stop 10/18/16 at 08:59; Status DC Chlordiazepoxide (Librium) 25 mg QHS PO Last administered on 10/18/16 20:07; Start 10/18/16 at 21:00; Stop 10/18/16 at 21:01; Status DC Chlordiazepoxide (Librium) 25 mg TID PO Last administered on 10/16/16 20:17; Start 10/16/16 at 09:00; Stop 10/17/16 at 08:59; Status DC Clonidine HCl (Catapres) 0.1 mg TID PRN PO withdrawal symptoms Last administered on 10/19/16 14:56; Start 10/04/16 at 14:15; Stop 10/23/16 at 12:37 ; Status DC Gabapentin (Neurontin) 300 mg BID PO Last administered on 10/28/16 09:29; Start 10/04/16 at 09:00; Stop 11/03/16 at 08:59 Home Med (Med Rec Complete!) ASDIRECTED XX ; Start 09/26/16 at 19:00; Stop at 19:01; Status DC Hydroxyzine HCl (Atarax) 25 mg TIDP PRN PO Anxiety Last administered on 16:21; Start 09/26/16 at 19:00; Stop 10/15/16 at 12:54; Status DC Hydroxyzine HCl (Atarax) 50 mg Q4HP PRN PO anxiety Last administered on 21:16; Start 10/15/16 at 13:00; Stop 11/14/16 at 12:59 Ibuprofen (Advil) 600 mg Q6HP PRN PO MODERATE PAIN (PS 5-7) Last administered on 10/27/16 18:11; Start 10/17/16 at 14:30; Stop 11/16/16 at 14:29 Levothyroxine Sodium (Synthroid) 0.1 mg DAILY@0600 PO Last administered on 06:02; Start 09/28/16 at 06:00; Stop 11/26/16 at 05:59 Magnesium Hydroxide (Milk Of Magnesia) 30 ml DAILYPRN PRN PO CONSTIPATION; Start 09/26/16 at 19:00; Stop 11/24/16 at 18:59 Mirtazapine (Remeron) 15 mg QHS PO Last administered on 10/06/16 20:12; Start 10/02/16 at 21:00; Stop 10/08/16 at 09:23; Status DC Mirtazapine (Remeron) 15 mg QHS PO Last administered on 10/14/16 20:15; Start 10/08/16 at 21:00; Stop 10/16/16 at 10:23; Status DC Non-Formulary Medication ( See Comment Field Below ) SEE COMMENTS SECTION 1T @10 XX ; Start 09/29/16 at 10:00; Stop 09/30/16 at 09:59; Status UNV Non-Formulary Medication ( See Comment Field Below ) SEE LABEL COMMENTS DAILY XX ; Start 09/27/16 at 09:00; Stop 09/27/16 at 12:07; Status DC Non-Formulary Medication ( See Comment Field Below ) SEE LABEL COMMENTS SECTION 1T@10 XX Last administered on 09/29/16 09:55; Start 09/29/16 at 10:00; Stop 09/29/16 at 23:59; Status DC Omeprazole (PriLOSEC) 20 mg DAILY PO Last administered on 10/28/16 09:29; Start 09/28/16 at 09:00; Stop 11/26/16 at 08:59 Oxycodone HCl (Roxicodone, Oxyir) 5 mg Q6HP PRN PO PAIN Last administered on 21:09; Start 10/12/16 at 14:00; Stop 10/15/16 at 12:54; Status DC Oxycodone HCl (Roxicodone, Oxyir) 10 mg Q6HP PRN PO SEVERE PAIN (PS 8-10) Last administered on 10/12/16 09:31; Start 10/09/16 at 14:15; Stop 10/12/16 at 14:00 ; Status DC Oxycodone HCl (Roxicodone, Oxyir) 15 mg Q6HP PRN PO SEVERE PAIN (PS 8-10) Last administered on 10/09/16 08:57; Start 10/04/16 at 14:15; Stop 10/09/16 at 14:16 ; Status DC Oxycodone HCl (Roxicodone, Oxyir) 20 mg Q6HP PRN PO PAIN Last administered on 09:18; Start 09/27/16 at 10:45; Stop 10/04/16 at 14:07; Status DC Paroxetine HCl (PAXil) 40 mg DAILY PO Last administered on 10/28/16 09:29; Start 09/27/16 at 09:00; Stop 11/25/16 at 08:59 Prazosin HCl (Minipress) 1 mg QHS PO Last administered on 10/27/16 19:56; Start 10/23/16 at 21:00; Stop 11/22/16 at 20:59 Propranolol HCl (Inderal La) 120 mg DAILY PO Last administered on 10/28/16 09: 29; Start 09/28/16 at 09:00; Stop 11/26/16 at 08:59 Propranolol HCl (Inderal) 10 mg QHS PO Last administered on 10/08/16 21:17; Start 10/08/16 at 21:00; Stop 10/09/16 at 14:12; Status DC Propranolol HCl (Inderal) 20 mg QHS PO Last administered on 10/27/16 19:56; Start 10/09/16 at 21:00; Stop 11/08/16 at 20:59 Quetiapine Fumarate (SEROquel) 50 mg QHS PO Last administered on 10/24/16 20:04 ; Start 10/24/16 at 21:00; Stop 10/25/16 at 09:38; Status DC Quetiapine Fumarate (SEROquel) 75 mg QHS PO Last administered on 10/27/16 19:57 ; Start 10/25/16 at 21:00; Stop 11/24/16 at 20:59 Sertraline HCl (Zoloft) 50 mg QAM PO ; Start 09/27/16 at 09:00; Stop 10/27/16 at 08:59; Status Cancel Topiramate (TopAMAX) 25 mg QHS PO Last administered on 10/27/16 19:56; Start at 21:00; Stop 11/21/16 at 20:59 Trazodone HCl (Desyrel) 25 mg QHSP PRN PO INSOMNIA; Start 09/26/16 at 23:30; Stop 10/26/16 at 23:29; Status Cancel Trazodone HCl (Desyrel) 50 mg QHSP PRN PO INSOMNIA Last administered on 21:47; Start 09/26/16 at 19:00; Stop 09/26/16 at 23:16; Status DC Trazodone HCl (Desyrel) 100 mg QHSP PRN PO INSOMNIA Last administered on 21:06; Start 10/16/16 at 10:30; Stop 10/24/16 at 09:52; Status DC Trazodone HCl (Desyrel) 100 mg QHSP PRN PO INSOMNIA Last administered on 19:58; Start 09/26/16 at 23:30; Stop 10/01/16 at 12:38; Status DC Trazodone HCl (Desyrel) 150 mg QHSP PRN PO INSOMNIA Last administered on 20:13; Start 10/01/16 at 12:45; Stop 10/02/16 at 10:14; Status DC Tuberculin PPD (Aplisol, Ppd) 5 units 1T@10 ID Last administered on 09/27/16t 16 :23; Start 09/27/16 at 10:00; Stop 09/27/16 at 23:59; Status DC Allergies Coded Allergies: Haloperidol (Verified Adverse Reaction, Severe, SEVERE DYSTONIA, 09/26/16) Risperidone (Verified Adverse Reaction, Severe, SEVERE DYSTONIA, 09/26/16) Ziprasidone (Verified Adverse Reaction, Severe, SEVERE DYSTONIA, 09/26/16) Divina Adame Oct 28, 2016 14:58
[2016-10-28 18:00] VITALS: BP 128/98
[2016-10-28] MEDS: ATORVASTATIN 20 MG TAB PO SCH (20:05)
[2016-10-28] MEDS: IBUPROFEN 600 MG TAB PO PRN (20:05)
[2016-10-28] MEDS: PROPRANOLOL 20 MG TAB PO SCH (20:05)
[2016-10-28] MEDS: TOPIRAMATE (TopAMAX) 25 MG TAB PO SCH (20:05)
[2016-10-28] MEDS: QUEtiapine FUMARATE 25 MG TAB PO SCH (20:06)
[2016-10-28] MEDS ORDERED: PRAZOSIN 1 MG CAP PO SCH (21:00)
[2016-10-28] MEDS: hydrOXYzine 50 MG TAB PO PRN (21:43)
[2016-10-28] MEDS: ACETAMINOPHEN TAB 650MG DOSE (2X325MG) PO PRN (21:45)
[2016-10-29] MEDS: LEVOTHYROXINE 0.1 MG TAB (100 MCG) PO SCH (06:02)
[2016-10-29 06:49] VITALS: BP 119/64
[2016-10-29] MEDS: GABAPENTIN 300 MG CAP PO SCH (09:14)
[2016-10-29 09:15] VITALS: BP 119/64
[2016-10-29] MEDS: OMEPRAZOLE 20 MG CAP PO SCH (09:15)
[2016-10-29] MEDS: PARoxetine 20 MG TAB PO SCH (09:15)
[2016-10-29] MEDS: IBUPROFEN 600 MG TAB PO PRN (09:15)
[2016-10-29] MEDS: PROPRANOLOL 60 MG LA CAP PO SCH (09:15)
[2016-10-29] MEDS: buPROPion **XL** TABLET 150MG (WELLBUTRIN XL) PO SCH (09:15)
--- NOTE | 2016-10-29 10:23 | MHDSPDOC ---
[facility] Discharge Summary Discharge Summary DATE OF ADMISSION: September 26, 2016 at 18:51 DATE OF DISCHARGE: October 29, 2016 DISCHARGE DIAGNOSES: 1. MDD, severe, recurrent without psychotic features 2. Sedative, hypnotic and opiate dependency 3. PTSD by history 4. ADHD by history 5. Panic disorder by history 6. Alcohol dependence in remission REASON FOR ADMISSION: Pt returned shortly after discharge after he obtained controlled substances that he abuses. He had agreed not to do this as part of the discharge plan but since he was out of pain medications he went to the doctors who will give him any controlled substance he request. He was provided with oxycodone, a benzo, and a stimulant. He became suicidal because his life is out of control and was readmitted to the hospital. CONSULTANTS INVOLVED:Lab, Medical, Psychiatry, Pain consult, Wound consult TREATMENT AND PROGRESS ON THE UNIT : Pt resumed antidepressant medication and was weaned off of oxycodone. No stimulants or benzo's provided during admission. Pt agreed to recommendation for substance abuse treatment realizing he had more problems than depression alone. He attended therapeutic programming regularly and reports benefit from group therapy. He benefited from the safe environment here as he could not obtain drugs that he abuses. He was honest about his abuse of medications and showed insight into his need for ongoing treatment. HOSPITAL COURSE: Pt was able to state that if discharged prior to substance abuse treatment, he would immediately begin to seek out meds (primarily stimulants and "get high"). His pattern is to just stay in his apartment and neglect follow up care for outpatient mental health or primary care services. While on the unit he was able to get his medicaid reinstated with the help of [facility] staff. He was assisted in getting bank records to complete the medicaid recertification. Brad remained medication adherent but had lots of trouble with night terrors. He is very concerned about this as he will have to hare a room at [facility] and he does not want to disturb his roommate. Our resident psychiatrist feels Brad would benefit from a sleep study but this was deferred to an outpatient process. Numerous medication trials were initiated. First he was taken off the trazodone and put on Seroquel. He is very sensitive to SGA and akathesia, so dose was kept below 100 mg. He reports his roommate on the unit told him it looks like he is convulsing when he sleeps and he yells out. This has been going on for years. Prazosin was tried. The dose was raised to 4 mg on his last night here and pt was not able to evaluate the effectiveness of that dose with only one dose taken. It is recommended he not be put on Trazodone but continued with Seroquel perhaps at 100 mg with the prazosin (high dose) to see if the night terrors can be reduced. A sleep study should also be done rupert. Pt is aware of this recommendation and to discuss with [facility] and PCP after discharge. Pts Vital signs were stable this visit. His wound on the right shoulder is healing well. It becomes bright red but the wound is closed and pt is advised not to lean on it or lay on it when sleeping to promote complete healing. Pt's swollen right hand has improved significantly. Color is WNL, not red like previous admission. Pt has good function with the hand per his report. He tapered off oxycodone and asked for benzo to help with anxiety related to stopping opiate. He may be a good candidate for suboxone or subutex at another facility. Pt will need to follow a strict taper of suboxone too as he will likely abuse it if on too long. DISCHARGE ASSESSMENT: Pt is not suicidal. His hygiene is good. His mood is stable. It is dysphoric but he is optimistic and motivated to complete the next step of his treatment. His mother is aware of him leaving today and going to another facility. Pt has never been psychotic and no symptoms were illicited this admission. MENTAL STATUS EXAMINATION ON DISCHARGE: Patient is a 36-year old male, who is dressed in shorts and a sweatshirt, bald, clean shaven, good eye contact. Speech is spontaneous Language skills are intact Thought processes including: linear, goal directed Thought content: appropriate Abstract reasoning, and computation: good Description of associations: good Description of abnormal or psychotic thoughts: no SI or HI. no psychosis Judgment: limited Insight: limited Orientation to person, place, time and situation is good. Recent and remote memory: intact Attention span and concentration: good Fund of knowledge: full Mood: euthymic Affect: congruent MEDICATIONS ON DISCHARGE: no meds on discharge as he is going immediately to an inpatient treatment facility. pt should remain on his antidepressant medication, Paxil and Wellbutrin and sleep medication. PLAN/FOLLOWUP ARRANGEMENTS: Transfer to [facility] via medicaid cab. Complete program and follow their recommendations. The amount of time spent in the coordination of care for this patient was approximately 30 minutes. Vital Signs/I&Os Vital Signs Date Time Temp Pulse Resp B/P (MAP) Pulse Ox O2 Delivery O2 Flow Rate FiO2 10/29/16 09:15 82 119/64 10/29/16 06:49 97.4 16 10/24/16 06:11 Room Air Medications Scheduled Atorvastatin Calcium (Lipitor) 20 Mg Tab, 20 MG PO QHS, (Reported) Bupropion Hcl (Bupropion HCl Xl) 150 Mg Tab, 150 MG PO DAILY, (Reported) Gabapentin (Gabapentin) 800 Mg Tab, 800 MG PO BID, (Reported) Levothyroxine Sodium (Synthroid) 100 Mcg Tab, 100 MCG PO DAILY, (Reported) Omeprazole (Prilosec) 20 Mg Cap, 20 MG PO DAILY, (Reported) Paroxetine Hydrochloride (Paxil) 40 Mg Tab, 40 MG PO DAILY for DEPRESSION, ( Reported) Propranolol HCl (Propranolol HCl ER) 120 Mg Cap, 120 MG PO DAILY for BLOOD PRESSURE, (Reported) Allergies Coded Allergies: Haloperidol (Verified Adverse Reaction, Severe, SEVERE DYSTONIA, 09/26/16) Risperidone (Verified Adverse Reaction, Severe, SEVERE DYSTONIA, 09/26/16) Ziprasidone (Verified Adverse Reaction, Severe, SEVERE DYSTONIA, 09/26/16) Divina Adame Oct 29, 2016 10:23
== END 2016-10-29 10:40 | DRG 885 ==
LOC: M ED 15:15 → M ED INP 18:51 → M PSY 20:53
PROVIDERS: ADMIT Psychiatry & Neurology Psychiatry; ATTEND Psychiatry & Neurology Child & Adolescent Psychiatry
DX: F33.2 Major depressive disorder, recurrent severe without psychotic features (principal); F11.20 Opioid dependence, uncomplicated; F13.20 Sedative, hypnotic or anxiolytic dependence, uncomplicated; R45.851 Suicidal ideations; L03.113 Cellulitis of right upper limb; F10.21 Alcohol dependence, in remission; E03.9 Hypothyroidism, unspecified; I10 Essential (primary) hypertension; E78.00 Pure hypercholesterolemia, unspecified; Z79.899 Other long term (current) drug therapy; Z88.8 Allergy status to other drugs, medicaments and biological substances; M25.511 Pain in right shoulder

== ENCOUNTER 2016-12-26 09:13 | Inpatient (IN) | payer MEDICARE, MEDICAID ==
[~2016-12-26] VITALS: Ht 175.3 cm; Wt 111.6 kg
[~2016-12-26 09:13] MED LIST changes: +ADDE1TAB14 PO; -ADDE20CA PO; +ADDE20CA3 PO; -ADDE5TAB5 PO; -AUGM875T27 PO; +AUGM875T28 PO; -COLA100C3 PO; +COLA100C5 PO; -FOLI1TAB2 PO; +FOLI1TAB4 PO; +GABA800T PO; +IBUP-1022 PO; +IBUP1TAB6 PO; -IBUP600T26 PO; -IBUP60TA PO; +KEFL500C17 PO; -KEFL500C7 PO; +LEVO100T5 PO; -NAPR500T2 PO; +NAPR500T3 PO; +PARO40TA3 PO; -PARO40TA87 PO; +PAXI20TA29 PO; -PAXI20TA3 PO; +PAXI40TA10 PO; -PAXI40TA2 PO; +PENI500T PO; -PENI50TA PO; +TRAZ-136 PO; -TRAZ100T4 PO
[2016-12-26] MEDS ORDERED: LEVO125T4 PO (09:49)
[2016-12-26] MEDS ORDERED: BUPR10TASR PO (09:49)
[2016-12-26] MEDS ORDERED: INDE1CAP5 PO (09:49)
[2016-12-26] MEDS ORDERED: PAXI20TA29 PO (09:49)
[2016-12-26] MEDS ORDERED: ONDANSETRON 4 MG ORAL DISINTEGRATING TAB (S0181) PO ONE (10:00)
[2016-12-26 11:23] LABS: MEAN CORPUSCULAR HEMOGLOBIN 33.2 pg (27.0-33.0); MEAN CORPUSCULAR HGB CONC 35.7 g/dl (32.0-36.5); WHITE BLOOD COUNT 8.2 K/mm3 (4.0-10.0)
[2016-12-26 11:43] LABS: METHADONE URINE NEGATIVE (NEGATIVE)
[2016-12-26 11:53] LABS: ALBUMIN 3.9 GM/DL (3.2-5.2); ALBUMIN/GLOBULIN RATIO 1.03 (1.00-1.93); ALKALINE PHOSPHATASE 76 U/L (45-117); ALT/SGPT 64 U/L (12-78); ANION GAP 15 MEQ/L (8-16); AST/SGOT 36 U/L (15-37); BILIRUBIN,DIRECT 0.3 MG/DL (0.0-0.2); BLOOD UREA NITROGEN 13 MG/DL (7-18); CALCIUM LEVEL 8.9 MG/DL (8.5-10.1); CARBON DIOXIDE LEVEL 21 MEQ/L (21-32); CHLORIDE LEVEL 100 MEQ/L (98-107); CREATININE FOR GFR 0.84 MG/DL (0.70-1.30); GLOMERULAR FILTRATION RATE > 60.0 (>60); GLUCOSE, FASTING 79 MG/DL (70-105); POTASSIUM SERUM 3.3 MEQ/L (3.5-5.1); SODIUM LEVEL 136 MEQ/L (136-145); TOTAL PROTEIN 7.7 GM/DL (6.4-8.2)
[2016-12-26] MEDS ORDERED: IBUP1TAB7 PO (13:10)
[2016-12-26] MEDS ORDERED: PAXI40TA10 PO (13:10)
[2016-12-26] MEDS ORDERED: LEVO112T2 PO (13:10)
[2016-12-26] MEDS ORDERED: QUET1TAB8 PO (13:10)
[2016-12-26] MEDS ORDERED: BUPR300T34 PO (13:10)
[2016-12-26] MEDS ORDERED: ATOR40TA75 PO (13:10)
[2016-12-26] MEDS ORDERED: PRAZ2CAP PO (13:10)
[2016-12-26] MEDS ORDERED: OMEP40CA2 PO (13:10)
[2016-12-26] MEDS ORDERED: CLIN1PAD2 TOP (13:10)
[2016-12-26] MEDS ORDERED: GABA-283 PO (13:10)
[2016-12-26] MEDS ORDERED: TOPI25TA10 PO (13:10)
[2016-12-26] MEDS ORDERED: PROP120C PO (13:10)
[2016-12-26] MEDS ORDERED: HYDR50TA70 PO (13:10)
[2016-12-26] MEDS ORDERED: OLANZapine 5 MG TAB PO PRN (15:00)
[2016-12-26 15:09] VITALS: BP 139/92
--- NOTE | 2016-12-26 15:44 | MHHPEPDOC ---
[facility] History & Physical History and Physical DATE OF ADMISSION: Dec 26, 2016 at 14:39 LEGAL STATUS AT ADMISSION: 9.39 CHIEF COMPLAINT: " I don't spend my day doing drugs and hanging out. My life isn 't anything like that". HISTORY OF THE PRESENT ILLNESS: Patient is a 36-year-old male, who was discharge from [facility] on 10/29 and admitted to [facility] for substance abuse/ drug treatment. He completed the 30 day program and relapsed shortly thereafter. Once again he went to the [facility] who supply him with benzo's, and amphetamines. He was also found to have cannabis in his system. As is his history he did not follow up with his outpatient appointments for medication and therapy. He is homeless and presents with suicidal ideation to our ER. PSYCHIATRIC REVIEW OF SYSTEMS: Affective: irritable Anxiety: fair Trauma: denies Psychosis: none Personally: unpleasant, poor attitude. PAST PSYCHIATRIC HISTORY: Prior Psychiatric Disorder: extensive, refer to EMR Outpatient Treatment: . Suicidal/Self injurious: . Psychotropic Medication History: . ALLERGIES: Please see below. SOCIAL HISTORY: Early Relations/development: parents when he was 7 yo- he was treated for 30 days at [facility] for depression at that time. Sibling order: middle child, one older brother and 1 younger sister Paternal relationships: good with mother, less good with father, little contact with siblings. Education: some college Occupational: none Legal: none Martial: single Economic: disability check Supports: mother, outsole caser, AA when he attends. Abuse/trauma: na SUBSTANCE ABUSE HISTORY: patient abuse prescriptions meds that he seeks from a provider [facility] for treatment of his adhd and reports of anxiety. Since pt neither works nor attends school he has not need for stimulant medication. He also uses cannabis regularly. PAST MEDICAL/SURGICAL HISTORY: PRIMARY CARE PROVIDER: Dr. Bri Alvares MONITORING MANAGER: Dr. Cole PAST MEDICAL HISTORY Hyperlipidemia. Hypothyroidism. Chronic pain. Allergic rhinitis. Hypertension. Depression. Anxiety. Attention-deficit hyperactivity disorder (ADHD). Insomnia. Panic attacks. Post-traumatic stress disorder (PTSD). Agoraphobia. ECT times seven. Admission at [facility] 05/10. History of substance abuse. Right upper extremity pyomyositis. Rhabdomyolysis. Cellulitis and resultant right upper arm wound, currently being treated by Dr. Cole. PAST SURGICAL HISTORY: Negative. LABORATORY STUDIES: from admission 09/2016 :CBC was normal. Electrolytes normal. Chest x-ray showed no acute cardiopulmonary disease. Ultrasound was done of the right upper arm and was negative for deep vein thrombosis (DVT). Urine was positive for amphetamines, benzodiazepines and cannabinoids. 12/26/16 TSH low, Potassium low at 3.3 ALLERGIES: HALOPERIDOL, RISPERIDONE, ZIPRASIDONE. SOCIAL HISTORY: He lives in [place]. He is single. Ethyl alcohol (ETOH): None. Smokes: None. Illicit drug use: Marijuana and he has also used in the past Vicodin, amphetamines, though none recently. IV drug use: None. FAMILY HISTORY: Mother alive and well. Father alive - alcohol abuse, depression. VITAL SIGNS: Temperature 97.7 pulse 85, respiratory rate 18 , blood pressure 139 /92 , pulse oximetry 99% on room air. MENTAL STATUS EXAMINATION: General appearance: Patient is a 36-year old male, who is dressed in hospital attire, unshaven, downcast eyes, appears angry. Speech: clear, spontaneous Thought processes: goal directed. Thought content: appropriate. Abstract reasoning and computation: good. Description of associations: good. Description of abnormal or psychotic thoughts: no psychotic symptoms, pt states he is suicidal but has not plan. Judgment: limited. Insight: poor Orientation: well oriented Recent and remote memory: intact Attention span and concentration: fair Fund of knowledge: Full. Mood: "depressed" Affect: irritable. DIAGNOSES: 1. stimulant, sedative and cannabis dependence and abuse, h/o opiate dependence as well 2. MDD, recurrent 3. r/o substance indued mood disorder 4. ADHD by history 5. panic disorder by history 6. Alcohol abuse in remission ASSESSMENT:When pt asked to clarify his statement made in chief complaint he had nothing to offer. He says [facility] and moved in with a male in a place in [place]. "It didn't work out". His I-stop shows he visited dr. Jason Hanley on 11/19/16 and obtained scripts for clonazepam -90 pills for 30 days, 0.5 mg. oxycodone 15 mg, 120 for 30 days and ritalin 20 mg 90 pills for 30 days. He then visited Dr. Connor Quispe M.D. and obtained oxycodone 20 mg 120 pills for 30 days, zanax 1 mg 90 pills for 30 days and dextroamphetamine 20 mg 90 tablets for 30 days. This is the same behavior pt has demonstrated for the past 6 months and for years preceding this admission. Pt has a serious drug habit and prescribers who are willingly reinforcing his habit. Pt states he wants to live in a care home house. We will refer him to [facility] and discharge to [facility] while he awaits housing with [facility]. Pt is refusing to attend programming today as "I'm too depressed". He will need to have room access limited to non-group hours. PA is concerned that patient continues to lie around putting pressure on his shoulders which contributes to causing another wound condition such as before. Mother will be informed of treatment plan. PROBLEM LIST: 1. substance abuse 2. poor impulse control 3. risk for self-injury 4. ineffective coping INITIAL TREATMENT PLAN: 1. Patient was admitted on a 9.39 2. Complete history was obtained. 3. With patients permission, family will be contacted and database will be expanded. 4. Patients medication regimen will be reviewed and changed accordingly. 5. Patient will be provided with protected environment. 6. Patient will be treated with individual, group, and milieu therapies. 7. Patient will receive supportive psych-education. 8. Discharge planning will commence immediately. 9. Outpatient follow-up treatment will be strongly recommended. 10. The initial treatment plan will focus initially on: see above problem list. ESTIMATED LENGTH OF STAY: 5-7 DAYS. TIME SPENT COUNSELING AND COORDINATING INITIAL CARE: 60 minutes. Laboratory Data 24H Labs Laboratory Tests 2 12/26/16 11:10: Anion Gap 15, Glomerular Filtration Rate > 60.0, Calcium Level 8.9, Aspartate Amino Transf (AST/SGOT) 36, Alanine Aminotransferase (ALT/SGPT) 64, Alkaline Phosphatase 76, Total Bilirubin 1.0, Direct Bilirubin 0.3H, Total Protein 7.7, Albumin 3.9, Albumin/Globulin Ratio 1.03, Thyroid Stimulating Hormone (TSH) 0.070L, Salicylates Level < 1.7L, Urine Amphetamines Screen POSITIVEH, Urine Benzodiazepines Screen POSITIVEH, Urine Opiates Screen NEGATIVE, Urine Methadone Screen NEGATIVE, Acetaminophen Level < 2.0L, Urine Barbiturates Screen NEGATIVE, Urine Phencyclidine Screen NEGATIVE, Urine Cocaine Metabolite Screen NEGATIVE, Urine Cannabinoids Screen POSITIVEH, Ethyl Alcohol Level < 0.003 CBC/BMP Laboratory Tests 12/26/16 11:10 Red Blood Count 5.11, Mean Corpuscular Volume 93.0, Mean Corpuscular Hemoglobin 33.2 H, Mean Corpuscular Hemoglobin Concent 35.7, Red Cell Distribution Width 13.0 Medications Scheduled Atorvastatin Calcium (Atorvastatin Calcium) 40 Mg Tab, 40 MG PO QHS, (Reported) Bupropion HCl (Bupropion HCl Xl) 300 Mg Tab, 300 MG PO DAILY, (Reported) Clindamycin Phosphate (Clindamycin Phosphate) 1 % Pad, 1 PAD TOP QID, (Reported) Gabapentin (Gabapentin) 400 Mg Cap, 400 MG PO TID, (Reported) Levothyroxine Sodium (Synthroid) 112 Mcg Tab, 112 MCG PO DAILY, (Reported) Omeprazole (Omeprazole) 40 Mg Cap, 40 MG PO DAILY, (Reported) Paroxetine Hydrochloride (Paxil) 40 Mg Tab, 40 MG PO DAILY, (Reported) Prazosin Hcl (Prazosin HCl) 2 Mg Cap, 6 MG PO QHS, (Reported) Propranolol HCl (Propranolol HCl ER) 120 Mg Cap, 120 MG PO DAILY, (Reported) Quetiapine Fumerate (Quetiapine Fumarate) 100 Mg Tab, 100 MG PO QHS, (Reported) Topiramate (Topiramate) 25 Mg Tab, 25 MG PO QHS, (Reported) Scheduled PRN Hydroxyzine HCl (Hydroxyzine HCl) 50 Mg Tab, 50 MG PO TID PRN for ANXIETY, ( Reported) Ibuprofen (Ibuprofen) 800 Mg Tab, 800 MG PO TID PRN for PAIN, (Reported) Allergies Coded Allergies: Haloperidol (Verified Adverse Reaction, Severe, SEVERE DYSTONIA, 09/26/16) Risperidone (Verified Adverse Reaction, Severe, SEVERE DYSTONIA, 09/26/16) Ziprasidone (Verified Adverse Reaction, Severe, SEVERE DYSTONIA, 09/26/16) Divina Adame Dec 26, 2016 15:44
[2016-12-26] MEDS ORDERED: ONDANSETRON 4 MG TAB (S0181) PO PRN (16:15)
[2016-12-26] MEDS ORDERED: MOM 30ML SUSPENSION UDC PO PRN (16:30)
[2016-12-26] MEDS ORDERED: MAALOX 30 ML SUSP *UDC PO PRN (16:30)
[2016-12-26] MEDS ORDERED: ACETAMINOPHEN TAB 650MG DOSE (2X325MG) PO PRN (16:30)
[2016-12-26] MEDS: TOPIRAMATE (TopAMAX) 25 MG TAB PO SCH (22:18)
[2016-12-26] MEDS: QUEtiapine FUMARATE 100 MG TAB PO SCH (22:18)
[2016-12-26] MEDS: PRAZOSIN 1 MG CAP PO SCH (22:18)
[2016-12-27 06:34] VITALS: BP 148/77
[2016-12-27] MEDS: buPROPion **XL** TABLET 150MG (WELLBUTRIN XL) PO SCH (08:47)
[2016-12-27] MEDS: PARoxetine 20 MG TAB PO SCH (08:48)
--- NOTE | 2016-12-27 09:43 | HPEPDOC ---
Medical History and Physical Date of Admission Dec 26, 2016 at 14:39 History and Physical PCP: Dr Quispe ATTENDING: Dr. Nader Bautista HPI: 36 yoM admitted to [facility] for unspecified depressive disorder, being medically examined today. He is reluctant to provide history and states "It's complicated". He does report that he was discharged from [facility] approximately 3 weeks ago. He reports that after that he "relapsed" and had received a prescription for benzodiazepines and opiates. He states he has not been using them regularly. He does not feel he needs opiates for pain at this time. He states his pain is controlled. He states his chronic Rt shoulder and arm pain has been controlled without using oxycodone. He states he still has a small open area on the right deltoid area which is improving. No drainage. No increased erythema or pain. He denies fevers or chills. Denies any weakness, fatigue, CASTILLO, CP, SOB, cough, palpitations, abdominal pain, N/V/D or changes in bowel or bladder habits. ISTOP is accessed reference #[id number] indicating oxycodone 20 mg #120 dispensed 12/18/[address] Quispe. PMHx: Hyperlipidemia Hypothyroid Chronic pain Allergic rhinitis Hypertension Depression Anxiety ADHD Insomnia Panic attack PTSD Agoraphobia ECT 7 admission at [facility] 12/ H/O Substance use RUE pyomyositis/rhabdomyolysis/cellulitis 08/09. PSHX: Denies SOCHX: Resides in: [place], currently states he is homeless Marital Status: Single Kids: None Employment: Unemployed Tobacco use: Denies ETOH: Denies Illicit Drugs: Patient states recently relapsed using benzodiazepines and opiates. History of Marijuana. IV Drug Use: Denies Tattoos done unprofessionally: Denies FAMHX: Mother: Alive, well Father: Alive, alcohol abuse, depression Siblings: Alive, well Children: None Unexpected deaths due to medical reasons: None. ROS: As noted in HPI, otherwise 11pt ROS of systems reviewed and unremarkable. PE: GEN: 36 yo M, appears stated age. Well-nourished, well developed. No acute distress. Alert and oriented x 3. Pleasant, interactive. HEENT: Normocephalic, atraumatic. Pupils are equal, round, and reactive to light. Extraocular movements are intact. No nystagmus appreciated. Sclera are nonicteric. Conjunctiva without injection. Nose midline. Nasal turbinates without drainage noted. EACs both patent BL. TMs both visualized and kaba with good cone of light, no bulging or erythema. No facial asymmetry. Mild tenderness with palpation over the maxillary sinuses bilaterally. Moist mucous membranes. Dentition poor, several dental caries are noted. Pharynx pink and moist. Neck supple, trachea midline. No lymphadenopathy or thyromegaly appreciated. CHEST: Regular rate and rhythm, +S1, +S2 LUNGS: Clear to auscultation bilaterally. No wheezes, rales, or rhonchi. Breathing appears symmetric and easy. Patient is speaking in full sentences. No accessory muscle use. ABD: Round, soft, non-tender, non-distended. +Bowel sounds throughout. No rebound or guarding. No costovertebral angle tenderness. EXT: Pulses 2+ bilaterally dorsalis pedis and radial. No lower extremity edema appreciated. SKIN: Small persistent open area RUE related to previous ulceration, approx 2 cm diameter. appears pink, no drainage, no TTP, no warmth. NEURO: Alert and oriented x 3. Cranial nerves III-XII are intact. No focal deficits appreciated. EKG: pending. A&P: 36 yoM admitted to [facility] for unspecified depressive disorder 1. Psych. Plan per Psychiatry. EKG pending. 2. Hyperlipidemia. Continue Lipitor 40 mg daily. 3. Hypothyroidism. Continue Synthroid 112 g by mouth daily. Abnormal TSH is noted. Check TFTs in AM. 4. Hypertension. Continue propranolol 120 mg by mouth daily with hold parameters. 5. GERD. Continue Prilosec 40 mg daily. 6. H/O Rt Shoulder pyomyositis/Rhabdomyolysis/RUE cellulitis. Pt states symptoms have edgar controlled. States pain has been controlled without use of opiates. Declines pain management or pain medication. Continue Tylenol 650 mg every 6 hours as needed. Troponin 600 mg every 8 hours as needed. Dry dressing to right upper extremity if needed. Monitor. 7. Follow up with PCP on discharge. 8. Hypokalemia. Recheck BMP. 9. Staff member Heath present throughout exam. Vital Signs Vital Signs Date Time Temp Pulse Resp B/P (MAP) Pulse Ox O2 Delivery O2 Flow Rate FiO2 12/27/16 06:34 98.6 99 18 148/77 (100) Room Air 12/26/16 15:09 99 Laboratory Data Labs 24H Laboratory Tests 2 12/26/16 11:10: Anion Gap 15, Glomerular Filtration Rate > 60.0, Calcium Level 8.9, Aspartate Amino Transf (AST/SGOT) 36, Alanine Aminotransferase (ALT/SGPT) 64, Alkaline Phosphatase 76, Total Bilirubin 1.0, Direct Bilirubin 0.3H, Total Protein 7.7, Albumin 3.9, Albumin/Globulin Ratio 1.03, Thyroid Stimulating Hormone (TSH) 0.070L, Salicylates Level < 1.7L, Urine Amphetamines Screen POSITIVEH, Urine Benzodiazepines Screen POSITIVEH, Urine Opiates Screen NEGATIVE, Urine Methadone Screen NEGATIVE, Acetaminophen Level < 2.0L, Urine Barbiturates Screen NEGATIVE, Urine Phencyclidine Screen NEGATIVE, Urine Cocaine Metabolite Screen NEGATIVE, Urine Cannabinoids Screen POSITIVEH, Ethyl Alcohol Level < 0.003 CBC/BMP Laboratory Tests 12/26/16 11:10 Red Blood Count 5.11, Mean Corpuscular Volume 93.0, Mean Corpuscular Hemoglobin 33.2 H, Mean Corpuscular Hemoglobin Concent 35.7, Red Cell Distribution Width 13.0 Home Medications Scheduled Atorvastatin Calcium (Atorvastatin Calcium) 40 Mg Tab, 40 MG PO QHS Bupropion HCl (Bupropion HCl Xl) 300 Mg Tab, 300 MG PO DAILY Clindamycin Phosphate (Clindamycin Phosphate) 1 % Pad, 1 PAD TOP QID Gabapentin (Gabapentin) 400 Mg Cap, 400 MG PO TID Levothyroxine Sodium (Synthroid) 112 Mcg Tab, 112 MCG PO DAILY Omeprazole (Omeprazole) 40 Mg Cap, 40 MG PO DAILY Paroxetine Hydrochloride (Paxil) 40 Mg Tab, 40 MG PO DAILY Prazosin Hcl (Prazosin HCl) 2 Mg Cap, 6 MG PO QHS Propranolol HCl (Propranolol HCl ER) 120 Mg Cap, 120 MG PO DAILY Quetiapine Fumerate (Quetiapine Fumarate) 100 Mg Tab, 100 MG PO QHS Topiramate (Topiramate) 25 Mg Tab, 25 MG PO QHS Scheduled PRN Hydroxyzine HCl (Hydroxyzine HCl) 50 Mg Tab, 50 MG PO TID PRN for ANXIETY Ibuprofen (Ibuprofen) 800 Mg Tab, 800 MG PO TID PRN for PAIN Allergies Coded Allergies: Haloperidol (Verified Adverse Reaction, Severe, SEVERE DYSTONIA, 09/26/16) Risperidone (Verified Adverse Reaction, Severe, SEVERE DYSTONIA, 09/26/16) Ziprasidone (Verified Adverse Reaction, Severe, SEVERE DYSTONIA, 09/26/16) Carleen Cole Dec 27, 2016 09:43
[2016-12-27] MEDS: PROPRANOLOL 60 MG LA CAP PO SCH (10:59)
[2016-12-27] MEDS: OMEPRAZOLE 20 MG CAP PO SCH (10:59)
[2016-12-27] MEDS: LEVOTHYROXINE 112MCG TABLET (0.112MG) PO SCH (10:59)
[2016-12-27 11:52] LABS: ANION GAP 14 MEQ/L (8-16); BLOOD UREA NITROGEN 10 MG/DL (7-18); CALCIUM LEVEL 9.1 MG/DL (8.5-10.1); CARBON DIOXIDE LEVEL 21 MEQ/L (21-32); CHLORIDE LEVEL 103 MEQ/L (98-107); CREATININE FOR GFR 0.81 MG/DL (0.70-1.30); GLOMERULAR FILTRATION RATE > 60.0 (>60); GLUCOSE, FASTING 95 MG/DL (70-105); POTASSIUM SERUM 3.5 MEQ/L (3.5-5.1); SODIUM LEVEL 138 MEQ/L (136-145)
--- NOTE | 2016-12-27 13:49 | MHIPNPDOC ---
[facility] Progress Note Progress Note DATE OF SERVICE: 12/27/16 HISTORY: day 2 of admission, admitted for SI without plan after relapsing on drugs following inpatient substance abuse treatment at [place]. Pt immediately contacted 'david paz who readily supplied copious amounts of controlled substances for him. Even duplication the oxycodone prescription. VITAL SIGNS: See below. NEW TEST RESULTS: Hyperlipidemia. Continue Lipitor 40 mg daily. 3. Hypothyroidism. Continue Synthroid 112 g by mouth daily. Abnormal TSH is noted. Check TFTs in AM. 4. Hypertension. Continue propranolol 120 mg by mouth daily with hold parameters. 5. GERD. Continue Prilosec 40 mg daily. 6. H/O Rt Shoulder pyomyositis/Rhabdomyolysis/RUE cellulitis. Pt states symptoms have edgar controlled. States pain has been controlled without use of opiates. Declines pain management or pain medication. Continue Tylenol 650 mg every 6 hours as needed. Troponin 600 mg every 8 hours as needed. Dry dressing to right upper extremity if needed. Monitor. 7. Follow up with PCP on discharge. 8. Hypokalemia. Recheck BMP. K+ level is back to normal limits. CURRENT MEDICATIONS: See below. MENTAL STATUS EXAMINATION: Patient is a 36-year old male, who is dressed in hospital attire,unshaven, yawning, rubbing his face and eyes. Speech: Is spontaneous Language skills are intact Thought processes including: goal directed Thought content: appropriate. Abstract reasoning, and computation: good. Description of associations: good. Description of abnormal or psychotic thoughts: pt admits he is still having SI, no plan. Pt has chronic SI, no psychotic symptoms observed or illicted. Judgment: limited Insight: poor. Orientation: very well oriented in all spheres.. Recent and remote memory: intact Attention span and concentration: good. Fund of knowledge: Full. Mood: depressed. Affect: irritable. DIAGNOSES: 1. poly substance abuse, benzo's, stimulants and opiates 2. Substance induced mood disorder 3. ADHD by history 4. Panic disorder by history 5. Agoraphobia by history 6. Chronic suicidality ASSESSMENT:pt is angry and upset that he finds himself without any where to live. He does not deny he immediately relapsed and resumed his usual behavior of contacting the MDs who readily provide him with controlled substances. When asked how he has been spending his days he becomes defensive. He does not reply and when asked if he is just getting high and hanging out he gets angry and says "my life is nothing like that" but does not supply an answer. Clarification requested and he still does not offer any information. Pt was angry with health technical writer when he left for rehab in October. It seems he is carrying a grudge. Will try to keep transference/counter transference to a minimum. Will ask CDP to refer pt to [facility] for housing waiting list and then offer hotel via [facility] until [facility] housing is available. Will inform mother of plans. MANAGEMENT PLAN: monitor of SI and safety. Encourage participation in therapeutic milieu. Pt prefers to lay in bed all day but will restrict room access as the pressure of his weight on his shoulders has led to rhaebosis in the past. Restart antidepressants. Pt denies he was discharged on antidepressants from [place]. Pt obtain copious amounts of pills between 11/19 and 12/09 all of which are controlled substances. We should ascertain the location of these drugs. The providers who continue to give him these meds need to be contacted. TIME SPENT: 15 minutes. Vital Signs Vital Signs Date Time Temp Pulse Resp B/P (MAP) Pulse Ox O2 Delivery O2 Flow Rate FiO2 12/27/16 10:59 130 121/69 12/27/16 06:34 98.6 18 Room Air 12/26/16 15:09 99 Laboratory Data 24H Labs Laboratory Tests 2 12/27/16 11:03: Anion Gap 14, Glomerular Filtration Rate > 60.0, Blood Urea Nitrogen 10, Creatinine 0.81, Sodium Level 138, Potassium Level 3.5, Chloride Level 103, Carbon Dioxide Level 21, Calcium Level 9.1 CBC/BMP Laboratory Tests 12/27/16 11:03 Calcium Level 9.1 Current Medications Current Medications Acetaminophen (Tylenol Tab) 650 mg Q6HP PRN PO HEADACHE or DISCOMFORT; Start at 16:30; Stop 01/25/17 at 16:29 Al Hydrox/Mg Hydrox/Simethicone (Mylanta) 30 ml Q4HP PRN PO HEARTBURN/ INDIGESTION; Start 12/26/16 at 16:30; Stop 01/25/17 at 16:29 Atorvastatin Calcium (Lipitor) 40 mg QHS PO ; Start 12/27/16 at 21:00; Stop at 20:59 Benztropine Mesylate (Cogentin) 2 mg Q8HP PRN PO EPS; Start 12/26/16 at 15:00; Stop 01/25/17 at 14:59 Bupropion HCl (Wellbutrin Xl) 300 mg QAM PO Last administered on 12/27/16 08:47 ; Start 12/27/16 at 09:00; Stop 01/26/17 at 08:59 Home Med (Med Rec Complete!) ASDIRECTED XX ; Start 12/26/16 at 13:15; Stop at 13:15; Status DC Hydroxyzine HCl (Atarax) 50 mg Q8H PRN PO ANXIETY; Start 12/26/16 at 15:15; Stop 01/25/17 at 15:14 Ibuprofen (Advil) 600 mg Q8HP PRN PO PAIN; Start 12/27/16 at 09:45; Stop at 09:44 Levothyroxine Sodium (Synthroid) 112 mcg DAILY@0600 PO Last administered on 12/27 10:59; Start 12/27/16 at 06:00; Stop 01/26/17 at 05:59 Magnesium Hydroxide (Milk Of Magnesia) 30 ml DAILYPRN PRN PO CONSTIPATION; Start 12/26/16 at 16:30; Stop 01/25/17 at 16:29 Olanzapine (ZyPREXA) 5 mg Q6HP PRN PO AGITATION; Start 12/26/16 at 15:00; Stop 01/25/17 at 14:59 Omeprazole (PriLOSEC) 40 mg DAILY PO Last administered on 12/27/16 10:59; Start 12/27/16 at 09:00; Stop 01/26/17 at 08:59 Ondansetron HCl (Zofran) 4 mg Q4HP PRN PO NAUSEA OR VOMITING; Start 12/26/16 at 16:15; Stop 01/25/17 at 16:14 Paroxetine HCl (PAXil) 40 mg QAM PO Last administered on 12/27/16 08:48; Start 12/27/16 at 09:00; Stop 01/26/17 at 08:59 Prazosin HCl (Minipress) 6 mg QHS PO Last administered on 12/26/16 22:18; Start 12/26/16 at 21:00; Stop 01/25/17 at 20:59 Propranolol HCl (Inderal La) 120 mg DAILY PO Last administered on 12/27/16 10: 59; Start 12/27/16 at 09:00; Stop 01/26/17 at 08:59 Quetiapine Fumarate (SEROquel) 100 mg QHS PO Last administered on 12/26/16 22: 18; Start 12/26/16 at 21:00; Stop 01/25/17 at 20:59 Topiramate (TopAMAX) 25 mg QHS PO Last administered on 12/26/16 22:18; Start at 21:00; Stop 01/25/17 at 20:59 Trazodone HCl (Desyrel) 50 mg QHSP PRN PO INSOMNIA; Start 12/26/16 at 16:30; Stop 01/25/17 at 16:29 Allergies Coded Allergies: Haloperidol (Verified Adverse Reaction, Severe, SEVERE DYSTONIA, 09/26/16) Risperidone (Verified Adverse Reaction, Severe, SEVERE DYSTONIA, 09/26/16) Ziprasidone (Verified Adverse Reaction, Severe, SEVERE DYSTONIA, 09/26/16) Divina Adame Dec 27, 2016 13:49
--- NOTE | 2016-12-27 16:42 | ECGEPIP ---
Stationary ECG Study [facility] Test Date: 2016-12-27 Pat Name: IZABEL DEL ANGEL Department: Room: [place] [address] Gender: M Circulation Crew Leader: : 1980 Requested By: Carleen Cole Order Number: [id number] Reading MD: Connor Strange Measurements Intervals [place] Rate: 65 P: 24 MO: 156 QRS: 28 QRSD: 94 T: 53 QT: 407 QTc: 423 Interpretive Statements Normal sinus rhythm. Normal tracing Electronically Signed On 12-27-2016 16:42:40 EDT by Connor Strange
[2016-12-27 18:00] VITALS: BP 122/63
[2016-12-27] MEDS: QUEtiapine FUMARATE 100 MG TAB PO SCH (20:29)
[2016-12-27] MEDS: ATORVASTATIN 20 MG TAB PO SCH (20:29)
[2016-12-27] MEDS: TOPIRAMATE (TopAMAX) 25 MG TAB PO SCH (20:29)
[2016-12-27] MEDS: PRAZOSIN 1 MG CAP PO SCH (20:30)
[2016-12-28 06:41] VITALS: BP 139/72
[2016-12-28] MEDS: LEVOTHYROXINE 112MCG TABLET (0.112MG) PO SCH (06:47)
[2016-12-28 08:11] LABS: THYROXINE (T4) 7.6 UG/DL (4.5-12.0)
[2016-12-28] MEDS: PROPRANOLOL 60 MG LA CAP PO SCH (08:48)
[2016-12-28] MEDS: OMEPRAZOLE 20 MG CAP PO SCH (08:48)
[2016-12-28] MEDS: PARoxetine 20 MG TAB PO SCH (08:48)
[2016-12-28] MEDS: buPROPion **XL** TABLET 150MG (WELLBUTRIN XL) PO SCH (08:48)
[2016-12-28] MEDS: hydrOXYzine 50 MG TAB PO PRN (12:17)
[2016-12-28 18:00] VITALS: BP 123/80
[2016-12-28] MEDS: PRAZOSIN 1 MG CAP PO SCH (20:11)
[2016-12-28] MEDS: ATORVASTATIN 20 MG TAB PO SCH (20:11)
[2016-12-28] MEDS: TOPIRAMATE (TopAMAX) 25 MG TAB PO SCH (20:11)
[2016-12-28] MEDS: QUEtiapine FUMARATE 100 MG TAB PO SCH (20:11)
[2016-12-28] MEDS: traZODone 50 MG TAB PO PRN (21:11)
[2016-12-29] MEDS: LEVOTHYROXINE 112MCG TABLET (0.112MG) PO SCH (05:52)
[2016-12-29 06:49] VITALS: BP 132/87
[2016-12-29] MEDS: OMEPRAZOLE 20 MG CAP PO SCH (09:12)
[2016-12-29] MEDS: PROPRANOLOL 60 MG LA CAP PO SCH (09:12)
[2016-12-29] MEDS: PARoxetine 20 MG TAB PO SCH (09:12)
[2016-12-29] MEDS: buPROPion **XL** TABLET 150MG (WELLBUTRIN XL) PO SCH (09:12)
[2016-12-29 18:00] VITALS: BP 126/72
[2016-12-29] MEDS: TOPIRAMATE (TopAMAX) 25 MG TAB PO SCH (19:58)
[2016-12-29] MEDS: QUEtiapine FUMARATE 100 MG TAB PO SCH (19:58)
[2016-12-29] MEDS: ATORVASTATIN 20 MG TAB PO SCH (19:58)
[2016-12-29] MEDS: PRAZOSIN 1 MG CAP PO SCH (19:59)
--- NOTE | 2016-12-29 20:34 | MHIPN ---
DATE: 12/28/2016 VITAL SIGNS: Temperature 99.3, pulse 54, respirations 19, blood pressure 139/72. CURRENT MEDICATION: - Paxil 40 mg every morning - Wellbutrin XL 300 mg every morning - Prazosin 6 mg at bed time - Seroquel 100 mg at bed time - Topamax 25 mg at bed time - trazodone 50 mg at bed time as needed HISTORY OF PRESENT ILLNESS: This is a 36-year-old white male with history of post-traumatic stress disorder and major depressive disorder. He has a history of polysubstance use as well. Patient was just released from [facility] 28 day rehabilitation but promptly relapsed multiple controlled substances prescribed by his physician [facility]. Patient is currently homeless. He states his depression level to be quite high. He reports his appetite is poor, he has hypersomnia. He is not participating in groups or the milieu therapy according to staff. Patient is being locked out of his room due to his avoidance behavior. MENTAL STATUS EXAMINATION: Patient is alert and oriented. Insight and judgment appear poor. Affect appears sad. Mood is moderately depressed. Affect is irritable. No signs of psychosis. Not hearing voices. No paranoia or thought disorder. IMPRESSION: 1. Polysubstance use disorder. 2. Substance induced mood disorder verus major depression. 3. Post-traumatic stress disorder. 4. Panic disorder by history. PLAN: Encourage milieu involvement. No change in psychotropics.
[2016-12-30] MEDS: LEVOTHYROXINE 112MCG TABLET (0.112MG) PO SCH (06:00)
[2016-12-30 07:07] VITALS: BP 111/63
[2016-12-30] MEDS: buPROPion **XL** TABLET 150MG (WELLBUTRIN XL) PO SCH (09:19)
[2016-12-30] MEDS: PARoxetine 20 MG TAB PO SCH (09:20)
[2016-12-30] MEDS: OMEPRAZOLE 20 MG CAP PO SCH (09:20)
[2016-12-30] MEDS: PROPRANOLOL 60 MG LA CAP PO SCH (09:21)
[2016-12-30] MEDS ORDERED: diphenhydrAMINE INJ 50MG/ML VIAL (J1200) IM PRN (10:30)
--- NOTE | 2016-12-30 10:35 | MHIPNPDOC ---
[facility] Progress Note Progress Note DATE OF SERVICE: 12/30/16 HISTORY: day 5 of admission. Pt admitted after relapsing after inpatient rehab treatment and becoming suicidal when homeless. VITAL SIGNS: See below. NEW TEST RESULTS: na CURRENT MEDICATIONS: See below. MENTAL STATUS EXAMINATION: Patient is a 36-year old male, who is dressed in hospital attire, shaved, well groomed, good eye contact, depressed and cooperative. Speech: Is spontaneous Language skills are grossly intact Thought processes including: linear, organized Thought content: appropriate. Abstract reasoning, and computation: good. Description of associations: good. Description of abnormal or psychotic thoughts: none, patient denies current suicidal ideation or plan. Judgment: limited Insight: limited. Orientation: well oriented in all spheres. Recent and remote memory: intact Attention span and concentration: varies. Fund of knowledge: full. Mood: depressed/anxious. Affect: congruent. DIAGNOSES: 1. MDD, recurrent, Severe, without psychotic features 2. Poly substance abuse, chronic 3. rule out substance induced mood disorder 4. PTSD 5. h/o ADHD 6. h/o Panic disorder with agoraphobia ASSESSMENT:Pt was in a better frame of mind today versus last week. He was more forthcoming with describing his difficulties when faced with leaving [place]. He did not have a place to return to. He moved in with a male who also attended the program and was committed to staying stober. Dion says he worked really hard those 28 days in rehab and due to the poor discharge planning he was unprepared for managing on his own. He does admit he though resuming the use of oxycodone, stimulants and Xanax would help him. He recognizes the insanity of this thinking. Brad was presented with the option [place] [facility] [place] versus discharge with outpatient substance abuse followup. He says he is agreeable to the transfer as he realizes he continues to repeat the same cycle over and over. He is also terrified that he will kill himself if discharged without a supportive plan. He states he will inform his mother of his decision. Brad agrees to attend programming without requiring a room restrict. The room restrict order will be discontinued as long as he follows through with programming. We discussed pts persistent depression and he is willing to augment with Abilify as long as he has an IM available for dystonia. this is certainly reasonable. Brad requires a high dose of prazosin to reduce his nightly nightmares. He is also having problems with hyper-startle when doors are slammed or loud sounds occur on the unit. It is likely Brad is using substances to numb his emotions related to his trauma. MANAGEMENT PLAN: discontinue Wellbutrin xl, begin Abilify 2 mg in a.m.,order Benadryl IM 50mg for EPS. Copy chart for [facility], provide proof of PPD completed earlier this year, convert pts status to 2PC. TIME SPENT: 25 minutes. Vital Signs Vital Signs Date Time Temp Pulse Resp B/P (MAP) Pulse Ox O2 Delivery O2 Flow Rate FiO2 12/30/16 09:21 63 137/82 12/30/16 07:07 98.0 16 12/27/16 06:34 Room Air 12/26/16 15:09 99 Current Medications Current Medications Acetaminophen (Tylenol Tab) 650 mg Q6HP PRN PO HEADACHE or DISCOMFORT; Start at 16:30; Stop 01/25/17 at 16:29 Al Hydrox/Mg Hydrox/Simethicone (Mylanta) 30 ml Q4HP PRN PO HEARTBURN/ INDIGESTION; Start 12/26/16 at 16:30; Stop 01/25/17 at 16:29 Atorvastatin Calcium (Lipitor) 40 mg QHS PO Last administered on 12/29/16 19:58 ; Start 12/27/16 at 21:00; Stop 01/26/17 at 20:59 Benztropine Mesylate (Cogentin) 2 mg Q8HP PRN PO EPS; Start 12/26/16 at 15:00; Stop 01/25/17 at 14:59 Bupropion HCl (Wellbutrin Xl) 300 mg QAM PO Last administered on 12/30/16 09:19 ; Start 12/27/16 at 09:00; Stop 01/26/17 at 08:59 Home Med (Med Rec Complete!) ASDIRECTED XX ; Start 12/26/16 at 13:15; Stop at 13:15; Status DC Hydroxyzine HCl (Atarax) 50 mg Q8H PRN PO ANXIETY Last administered on 12:17; Start 12/26/16 at 15:15; Stop 01/25/17 at 15:14 Ibuprofen (Advil) 600 mg Q8HP PRN PO PAIN; Start 12/27/16 at 09:45; Stop at 09:44 Levothyroxine Sodium (Synthroid) 100 mcg DAILY@06 PO ; Start 12/31/16 at 06:00; Stop 01/30/17 at 05:59 Levothyroxine Sodium (Synthroid) 112 mcg DAILY@0600 PO Last administered on 12/30 06:00; Start 12/27/16 at 06:00; Stop 12/30/16 at 08:33; Status DC Magnesium Hydroxide (Milk Of Magnesia) 30 ml DAILYPRN PRN PO CONSTIPATION; Start 12/26/16 at 16:30; Stop 01/25/17 at 16:29 Olanzapine (ZyPREXA) 5 mg Q6HP PRN PO AGITATION; Start 12/26/16 at 15:00; Stop 01/25/17 at 14:59 Omeprazole (PriLOSEC) 40 mg DAILY PO Last administered on 12/30/16 09:20; Start 12/27/16 at 09:00; Stop 01/26/17 at 08:59 Ondansetron HCl (Zofran) 4 mg Q4HP PRN PO NAUSEA OR VOMITING; Start 12/26/16 at 16:15; Stop 01/25/17 at 16:14 Paroxetine HCl (PAXil) 40 mg QAM PO Last administered on 12/30/16 09:20; Start 12/27/16 at 09:00; Stop 01/26/17 at 08:59 Prazosin HCl (Minipress) 6 mg QHS PO Last administered on 12/29/16 19:59; Start 12/26/16 at 21:00; Stop 01/25/17 at 20:59 Propranolol HCl (Inderal La) 120 mg DAILY PO Last administered on 12/30/16 09: 21; Start 12/27/16 at 09:00; Stop 01/26/17 at 08:59 Quetiapine Fumarate (SEROquel) 100 mg QHS PO Last administered on 12/29/16 19: 58; Start 12/26/16 at 21:00; Stop 01/25/17 at 20:59 Topiramate (TopAMAX) 25 mg QHS PO Last administered on 12/29/16 19:58; Start at 21:00; Stop 01/25/17 at 20:59 Trazodone HCl (Desyrel) 50 mg QHSP PRN PO INSOMNIA Last administered on 21:11; Start 12/26/16 at 16:30; Stop 01/25/17 at 16:29 Allergies Coded Allergies: Haloperidol (Verified Adverse Reaction, Severe, SEVERE DYSTONIA, 09/26/16) Risperidone (Verified Adverse Reaction, Severe, SEVERE DYSTONIA, 09/26/16) Ziprasidone (Verified Adverse Reaction, Severe, SEVERE DYSTONIA, 09/26/16) Divina Adame Dec 30, 2016 10:35
[2016-12-30] MEDS: ARIPiprazole 2 MG TAB PO SCH (12:46)
[2016-12-30 18:29] VITALS: BP 120/69
[2016-12-30] MEDS: QUEtiapine FUMARATE 100 MG TAB PO SCH (19:51)
[2016-12-30] MEDS: ATORVASTATIN 20 MG TAB PO SCH (19:51)
[2016-12-30] MEDS: TOPIRAMATE (TopAMAX) 25 MG TAB PO SCH (19:51)
[2016-12-30] MEDS: PRAZOSIN 1 MG CAP PO SCH (19:52)
[2016-12-30] MEDS: traZODone 50 MG TAB PO PRN (21:23)
--- NOTE | 2016-12-30 21:51 | MHIPN ---
DATE: 12/29/2016 VITAL SIGNS: Temperature 97.3, pulse 73, respiration 18, blood pressure 132/87. CURRENT MEDICATIONS: - Paxil 40 mg q a.m. - Wellbutrin XL 300 q a.m. - Propranolol 120 mg daily - prazosin 6 mg nightly - Seroquel 100 mg nightly - Topamax 25 mg nightly - trazodone 50 mg nightly as needed HISTORY OF PRESENT ILLNESS: The patient still complains of not having access to his shoes. This will be discussed again with staff members. He states his appetite is improved somewhat. He is still having sleep issues. The patient has a history of sleeping too much, isolating in his room. Staff have locked him out of his room subsequently. He still reports moderate to severe depression. The patient had been off of his psychotropics for several weeks prior to admission. The patient claims not to have an outpatient mental health provider here in the [place] area, even though he has lived here for 5 years. MENTAL STATUS EXAMINATION: The patient is alert and oriented. He is irritable. Mood is moderately depressed. Affect is glum. No psychotic symptoms. He is not hearing voices. No signs of paranoia. Insight and judgment appear limited. The patient has chronic suicidal thoughts but no active intent. No current signs of dangerousness. DIAGNOSES: Polysubstance abuse disorder. Substance induced mood disorder. Panic disorder by history. Attention deficit hyperactivity disorder (ADHD) by history. PLAN: No change in medications, milieu. Will confirm with staff regarding his shoes.
[2016-12-31] MEDS: LEVOTHYROXINE 100MCG TABLET (0.1MG) PO SCH (06:11)
[2016-12-31 06:49] VITALS: BP 137/67
[2016-12-31] MEDS: ARIPiprazole 2 MG TAB PO SCH (08:11)
[2016-12-31] MEDS: PARoxetine 20 MG TAB PO SCH (08:11)
[2016-12-31] MEDS: OMEPRAZOLE 20 MG CAP PO SCH (08:13)
[2016-12-31] MEDS: PROPRANOLOL 60 MG LA CAP PO SCH (08:13)
--- NOTE | 2016-12-31 10:31 | MHIPNPDOC ---
[facility] Progress Note Progress Note DATE OF SERVICE: 12/31/16 HISTORY: day 5 of admission for SI after becoming homeless following SA treatment. VITAL SIGNS: See below. NEW TEST RESULTS: CURRENT MEDICATIONS: See below. MENTAL STATUS EXAMINATION: Patient is a 36-year old male, who is dressed in casual shirt and hospital bottoms, shaved with Go-T, good eye contact, pleasant. Speech: Is clear, spontaneous. Language skills are intact. Thought processes including: linear Thought content: appropriate. Abstract reasoning, and computation: good. Description of associations: good. Description of abnormal or psychotic thoughts: pt states he would be terrified to leave the hospital without lots of support on the outside. He fears he may kill himself. Needs housing and abstinence support for SA. Pt is not delusional or psychotic. He is not suicidal while in our care. Judgment: limited Insight: fair. Orientation: well oriented in all spheres. Recent and remote memory: good. Attention span and concentration: good. Fund of knowledge: Full. Mood: euthymic. Affect: congruent, range increases periodically. DIAGNOSES: 1. MDD, recurrent, Severe, without psychotic features 2. Poly substance abuse, chronic 3. rule out substance induced mood disorder 4. PTSD 5. h/o ADHD 6. h/o Panic disorder with agoraphobia ASSESSMENT:Pt attended Team meeting today and participated. He is aware of the plan to transfer him to long-term treatment at [facility] and agrees it would be helpful for his PTSD, his SA and his persistent dysthymia. Pt is attending programming and is visible on the unit. His right shoulder continues to be open in a rectangular shape about 1.5 " by 4". It itches. PA aware and he can apply a drsg if necessary. Mostly he needs to keep pressure off of it until completely healed. He is also reporting neuropathic pain to right hand today which was not present previously this admission. He has been prescribed gabapentin previously for this reason and staff advised that PA should be informed of pts request to have gabapentin returned to his med regime. In the meantime, pt reports his night terrors are under controlled on 6 mg of Prazosin at . He denies weakness, dizziness or hypotension in light of this med being added to his antihypertensive medication. Pts mood is noticeably more improved today than last week. MANAGEMENT PLAN: Pt took 1 dose of Abilify 2 mg and then told health science writer he recalls talking 5 mg in the past and asked that the Abilify be increased to that dosage. He will start the 5 mg tomorrow. His mother called today and states "I' m on board" with the plan to transfer to [facility]. We will continue to keep her informed of [facility] progress. Continue close obs though pt denies suicidal thoughts or plan at this time. Continue meds - Paxil, prazosin, encourage healthy eating. Continue group participation. TIME SPENT: 25 minutes. Vital Signs Vital Signs Date Time Temp Pulse Resp B/P (MAP) Pulse Ox O2 Delivery O2 Flow Rate FiO2 12/31/16 08:13 67 133/87 12/31/16 06:49 98.0 16 Room Air 12/26/16 15:09 99 Current Medications Current Medications Acetaminophen (Tylenol Tab) 650 mg Q6HP PRN PO HEADACHE or DISCOMFORT; Start at 16:30; Stop 01/25/17 at 16:29 Al Hydrox/Mg Hydrox/Simethicone (Mylanta) 30 ml Q4HP PRN PO HEARTBURN/ INDIGESTION; Start 12/26/16 at 16:30; Stop 01/25/17 at 16:29 Aripiprazole (AbiLIFY) 2 mg QAM PO Last administered on 12/31/16 08:11; Start 12/30/16 at 09:00; Stop 01/29/17 at 08:59 Atorvastatin Calcium (Lipitor) 40 mg QHS PO Last administered on 12/30/16 19:51 ; Start 12/27/16 at 21:00; Stop 01/26/17 at 20:59 Benztropine Mesylate (Cogentin) 2 mg Q8HP PRN PO EPS; Start 12/26/16 at 15:00; Stop 01/25/17 at 14:59 Bupropion HCl (Wellbutrin Xl) 300 mg QAM PO Last administered on 12/30/16 09:19 ; Start 12/27/16 at 09:00; Stop 12/30/16 at 10:19; Status DC Diphenhydramine HCl (Benadryl) 50 mg Q6HP PRN IM EPS; Start 12/30/16 at 10:30; Stop 01/29/17 at 10:29 Home Med (Med Rec Complete!) ASDIRECTED XX ; Start 12/26/16 at 13:15; Stop at 13:15; Status DC Hydroxyzine HCl (Atarax) 50 mg Q8H PRN PO ANXIETY Last administered on 12:17; Start 12/26/16 at 15:15; Stop 01/25/17 at 15:14 Ibuprofen (Advil) 600 mg Q8HP PRN PO PAIN; Start 12/27/16 at 09:45; Stop at 09:44 Levothyroxine Sodium (Synthroid) 100 mcg DAILY@06 PO Last administered on 06:11; Start 12/31/16 at 06:00; Stop 01/30/17 at 05:59 Levothyroxine Sodium (Synthroid) 112 mcg DAILY@0600 PO Last administered on 12/30 06:00; Start 12/27/16 at 06:00; Stop 12/30/16 at 08:33; Status DC Magnesium Hydroxide (Milk Of Magnesia) 30 ml DAILYPRN PRN PO CONSTIPATION; Start 12/26/16 at 16:30; Stop 01/25/17 at 16:29 Olanzapine (ZyPREXA) 5 mg Q6HP PRN PO AGITATION; Start 12/26/16 at 15:00; Stop 01/25/17 at 14:59 Omeprazole (PriLOSEC) 40 mg DAILY PO Last administered on 12/31/16 08:13; Start 12/27/16 at 09:00; Stop 01/26/17 at 08:59 Ondansetron HCl (Zofran) 4 mg Q4HP PRN PO NAUSEA OR VOMITING; Start 12/26/16 at 16:15; Stop 01/25/17 at 16:14 Paroxetine HCl (PAXil) 40 mg QAM PO Last administered on 12/31/16 08:11; Start 12/27/16 at 09:00; Stop 01/26/17 at 08:59 Prazosin HCl (Minipress) 6 mg QHS PO Last administered on 12/30/16 19:52; Start 12/26/16 at 21:00; Stop 01/25/17 at 20:59 Propranolol HCl (Inderal La) 120 mg DAILY PO Last administered on 12/31/16 08: 13; Start 12/27/16 at 09:00; Stop 01/26/17 at 08:59 Quetiapine Fumarate (SEROquel) 100 mg QHS PO Last administered on 12/30/16 19: 51; Start 12/26/16 at 21:00; Stop 01/25/17 at 20:59 Topiramate (TopAMAX) 25 mg QHS PO Last administered on 12/30/16 19:51; Start at 21:00; Stop 01/25/17 at 20:59 Trazodone HCl (Desyrel) 50 mg QHSP PRN PO INSOMNIA Last administered on 21:23; Start 12/26/16 at 16:30; Stop 01/25/17 at 16:29 Allergies Coded Allergies: Haloperidol (Verified Adverse Reaction, Severe, SEVERE DYSTONIA, 09/26/16) Risperidone (Verified Adverse Reaction, Severe, SEVERE DYSTONIA, 09/26/16) Ziprasidone (Verified Adverse Reaction, Severe, SEVERE DYSTONIA, 09/26/16) Divina Adame Dec 31, 2016 10:31
[2016-12-31] MEDS: IBUPROFEN 600 MG TAB PO PRN (11:26)
[2016-12-31 18:17] VITALS: BP 128/76
[2016-12-31] MEDS: ATORVASTATIN 20 MG TAB PO SCH (20:06)
[2016-12-31] MEDS: PRAZOSIN 1 MG CAP PO SCH (20:06)
[2016-12-31] MEDS: QUEtiapine FUMARATE 100 MG TAB PO SCH (20:06)
[2016-12-31] MEDS: TOPIRAMATE (TopAMAX) 25 MG TAB PO SCH (20:07)
[2016-12-31] MEDS: traZODone 50 MG TAB PO PRN (20:07)
[2016-12-31 21:00] VITALS: BP 124/68
[2017-01-01] MEDS: LEVOTHYROXINE 100MCG TABLET (0.1MG) PO SCH (06:15)
[2017-01-01 07:00] VITALS: BP 144/92
[2017-01-01] MEDS: PROPRANOLOL 60 MG LA CAP PO SCH (08:09)
[2017-01-01] MEDS: OMEPRAZOLE 20 MG CAP PO SCH (08:09)
[2017-01-01] MEDS: PARoxetine 20 MG TAB PO SCH (08:09)
--- NOTE | 2017-01-01 15:10 | MHIPNPDOC ---
[facility] Progress Note Progress Note DATE OF SERVICE: 01/01/17 HISTORY: day7 of admission after relapse with controlled substances following inpatient rehab, homelessness with subsequent suicidal thinking. VITAL SIGNS: See below. NEW TEST RESULTS: na CURRENT MEDICATIONS: See below. MENTAL STATUS EXAMINATION: Patient is a 36-year old male, who is tall, medium frame, scruffy la, good eye contact, wearing casual shirt with hospital bottoms.. Speech: Is clear and logical Language skills are intact Thought processes including: linear Thought content: appropriate Abstract reasoning, and computation: good. Description of associations: good. Description of abnormal or psychotic thoughts: none. Judgment: limited. Insight: fair. Orientation: well oriented Recent and remote memory: intact. Attention span and concentration: adequate. Fund of knowledge: full Mood: depressed 11/02. Affect: constricted. DIAGNOSES: 1. MDD, recurrent, Severe, without psychotic features 2. Poly substance abuse, chronic 3. rule out substance induced mood disorder 4. PTSD 5. h/o ADHD 6. h/o Panic disorder with agoraphobia ASSESSMENT:Pt is participating as requested in unit programming.he is visible on the unit but keeps to himself. he eats at meal time and denies problems of n/ v/d or constipation. H edenies suicidal thoughts but admits to feeling depressed. He has a great deal of support on the unit. He is sleeping well. He makes his needs known appropriately. MANAGEMENT PLAN: Deputy Prosecuting Attorney left a message for Dr. Connor John MD at [phone] after obtaining BHAVANI from Brad. No return call after leaving message on so functional tester typewriters called again at this time and was able to speak directly to Dr. Quispe. He was informed that Brad was just discharged for a 28 day inpatient drug treatment program at [facility] and soon thereafter contacted his office and was able to obtain copious amounts of controlled substances and in less than 30 days was able to obtain an additional 30 day supply. It was suggested that [facility] be consulted if there were any questions about this. Dr. Quispe stated he was unaware that Brad had an addiction problem and that he was diverting his medication. He asked if functional tester typewriters knew for certain that Brad sold his drugs and functional tester typewriters was able to confirm that Brad had shared this information in the past but only yesterday gave us permission to contact Dr. Quispe. He appeared concerned for Brad, stated this was the first time he had heard of anything like this about Brad. TIME SPENT: 25 minutes. Vital Signs Vital Signs Date Time Temp Pulse Resp B/P (MAP) Pulse Ox O2 Delivery O2 Flow Rate FiO2 01/01/17 08:09 64 137/84 01/01/17 07:00 98.1 18 Room Air 12/26/16 15:09 99 Current Medications Current Medications Acetaminophen (Tylenol Tab) 650 mg Q6HP PRN PO HEADACHE or DISCOMFORT Last administered on 12/31/16 17:40; Start 12/26/16 at 16:30; Stop 01/25/17 at 16:29 Al Hydrox/Mg Hydrox/Simethicone (Mylanta) 30 ml Q4HP PRN PO HEARTBURN/ INDIGESTION; Start 12/26/16 at 16:30; Stop 01/25/17 at 16:29 Aripiprazole (AbiLIFY) 2 mg QAM PO Last administered on 12/31/16 08:11; Start 12/30/16 at 09:00; Stop 12/31/16 at 10:15; Status DC Aripiprazole (AbiLIFY) 5 mg QAM PO Last administered on 01/01/17 08:09; Start 01/01/17 at 09:00; Stop 01/31/17 at 08:59 Atorvastatin Calcium (Lipitor) 40 mg QHS PO Last administered on 12/31/16 20:06 ; Start 12/27/16 at 21:00; Stop 01/26/17 at 20:59 Benztropine Mesylate (Cogentin) 2 mg Q8HP PRN PO EPS; Start 12/26/16 at 15:00; Stop 01/25/17 at 14:59 Bupropion HCl (Wellbutrin Xl) 300 mg QAM PO Last administered on 12/30/16 09:19 ; Start 12/27/16 at 09:00; Stop 12/30/16 at 10:19; Status DC Diphenhydramine HCl (Benadryl) 50 mg Q6HP PRN IM EPS; Start 12/30/16 at 10:30; Stop 01/29/17 at 10:29 Home Med (Med Rec Complete!) ASDIRECTED XX ; Start 12/26/16 at 13:15; Stop at 13:15; Status DC Hydroxyzine HCl (Atarax) 50 mg Q8H PRN PO ANXIETY Last administered on 12:17; Start 12/26/16 at 15:15; Stop 01/25/17 at 15:14 Ibuprofen (Advil) 600 mg Q8HP PRN PO PAIN Last administered on 12/31/16 11:26; Start 12/27/16 at 09:45; Stop 01/26/17 at 09:44 Levothyroxine Sodium (Synthroid) 100 mcg DAILY@06 PO Last administered on 06:15; Start 12/31/16 at 06:00; Stop 01/30/17 at 05:59 Levothyroxine Sodium (Synthroid) 112 mcg DAILY@0600 PO Last administered on 12/30 06:00; Start 12/27/16 at 06:00; Stop 12/30/16 at 08:33; Status DC Magnesium Hydroxide (Milk Of Magnesia) 30 ml DAILYPRN PRN PO CONSTIPATION; Start 12/26/16 at 16:30; Stop 01/25/17 at 16:29 Olanzapine (ZyPREXA) 5 mg Q6HP PRN PO AGITATION; Start 12/26/16 at 15:00; Stop 01/25/17 at 14:59 Omeprazole (PriLOSEC) 40 mg DAILY PO Last administered on 01/01/17 08:09; Start 12/27/16 at 09:00; Stop 01/26/17 at 08:59 Ondansetron HCl (Zofran) 4 mg Q4HP PRN PO NAUSEA OR VOMITING; Start 12/26/16 at 16:15; Stop 01/25/17 at 16:14 Paroxetine HCl (PAXil) 40 mg QAM PO Last administered on 01/01/17 08:09; Start 12/27/16 at 09:00; Stop 01/26/17 at 08:59 Prazosin HCl (Minipress) 6 mg QHS PO Last administered on 12/31/16 20:06; Start 12/26/16 at 21:00; Stop 01/25/17 at 20:59 Propranolol HCl (Inderal La) 120 mg DAILY PO Last administered on 01/01/17 08: 09; Start 12/27/16 at 09:00; Stop 01/26/17 at 08:59 Quetiapine Fumarate (SEROquel) 100 mg QHS PO Last administered on 12/31/16 20: 06; Start 12/26/16 at 21:00; Stop 01/25/17 at 20:59 Topiramate (TopAMAX) 25 mg QHS PO Last administered on 12/31/16 20:07; Start at 21:00; Stop 01/25/17 at 20:59 Trazodone HCl (Desyrel) 50 mg QHSP PRN PO INSOMNIA Last administered on 20:07; Start 12/26/16 at 16:30; Stop 01/25/17 at 16:29 Allergies Coded Allergies: Haloperidol (Verified Adverse Reaction, Severe, SEVERE DYSTONIA, 09/26/16) Risperidone (Verified Adverse Reaction, Severe, SEVERE DYSTONIA, 09/26/16) Ziprasidone (Verified Adverse Reaction, Severe, SEVERE DYSTONIA, 09/26/16) Divina Adame Jan 01, 2017 15:10
[2017-01-01 18:11] VITALS: BP 134/79
[2017-01-01] MEDS: IBUPROFEN 600 MG TAB PO PRN (18:18)
[2017-01-01] MEDS: BENZTROPINE 2 MG TAB PO PRN (19:12)
[2017-01-01] MEDS: ATORVASTATIN 20 MG TAB PO SCH (20:45)
[2017-01-01] MEDS: PRAZOSIN 1 MG CAP PO SCH (20:45)
[2017-01-01] MEDS: TOPIRAMATE (TopAMAX) 25 MG TAB PO SCH (20:45)
[2017-01-01] MEDS: QUEtiapine FUMARATE 100 MG TAB PO SCH (20:45)
[2017-01-02] MEDS: LEVOTHYROXINE 100MCG TABLET (0.1MG) PO SCH (06:17)
[2017-01-02 07:17] VITALS: BP 123/69
[2017-01-02] MEDS: OMEPRAZOLE 20 MG CAP PO SCH (08:17)
[2017-01-02] MEDS: PARoxetine 20 MG TAB PO SCH (08:17)
[2017-01-02] MEDS: BENZTROPINE 2 MG TAB PO PRN (08:17)
[2017-01-02] MEDS: PROPRANOLOL 60 MG LA CAP PO SCH (08:18)
--- NOTE | 2017-01-02 09:05 | IPNPDOC ---
Date Seen The patient was seen on 01/02/17. Progress Note HPI: 36 yoM admitted to [facility] for unspecified depressive disorder, being medically examined today. Requested to reevaluate the patient related to chronic right arm pain. He is requesting to add back gabapentin 400 mg 3 times a day for his pain. He states he does not use this for mood. Previously on admission he had stated he did not feel he needs opiates for pain at this time. He states his chronic Rt shoulder and arm pain has been controlled without using oxycodone. He states he still has a small open area on the right deltoid area which is improving. No drainage. No increased erythema or pain. He denies fevers or chills. Denies any weakness, fatigue, CASTILLO, CP, SOB, cough, palpitations, abdominal pain, N/V/D or changes in bowel or bladder habits. [facility] is accessed reference #[id number] indicating oxycodone 20 mg #120 dispensed 12/18/[address] Quispe. PMHx: Hyperlipidemia Hypothyroid Chronic pain Allergic rhinitis Hypertension Depression Anxiety ADHD Insomnia Panic attack PTSD Agoraphobia ECT 7 admission at [place] 05/10 H/O Substance use RUE pyomyositis/rhabdomyolysis/cellulitis 08/09. PSHX: Denies SOCHX: Resides in: [place], currently states he is homeless Marital Status: Single Kids: None Employment: Unemployed Tobacco use: Denies ETOH: Denies Illicit Drugs: Patient states recently relapsed using benzodiazepines and opiates. History of Marijuana. IV Drug Use: Denies Tattoos done unprofessionally: Denies FAMHX: Mother: Alive, well Father: Alive, alcohol abuse, depression Siblings: Alive, well Children: None Unexpected deaths due to medical reasons: None. ROS: As noted in HPI, otherwise 11pt ROS of systems reviewed and unremarkable. PE: GEN: 36 yo M, appears stated age. Well-nourished, well developed. No acute distress. Alert and oriented x 3. Pleasant, interactive. HEENT: Normocephalic, atraumatic. Pupils are equal, round, and reactive to light. Extraocular movements are intact. No nystagmus appreciated. Sclera are nonicteric. Conjunctiva without injection. Nose midline. Nasal turbinates without drainage noted. EACs both patent BL. TMs both visualized and kaba with good cone of light, no bulging or erythema. No facial asymmetry. Mild tenderness with palpation over the maxillary sinuses bilaterally. Moist mucous membranes. Dentition poor, several dental caries are noted. Pharynx pink and moist. Neck supple, trachea midline. No lymphadenopathy or thyromegaly appreciated. CHEST: Regular rate and rhythm, +S1, +S2 LUNGS: Clear to auscultation bilaterally. No wheezes, rales, or rhonchi. Breathing appears symmetric and easy. Patient is speaking in full sentences. No accessory muscle use. ABD: Round, soft, non-tender, non-distended. +Bowel sounds throughout. No rebound or guarding. No costovertebral angle tenderness. EXT: Pulses 2+ bilaterally dorsalis pedis and radial. No lower extremity edema appreciated. SKIN: Small persistent open area RUE related to previous ulceration, approx 2 cm diameter. appears pink, no drainage, no TTP, no warmth. NEURO: Alert and oriented x 3. Cranial nerves III-XII are intact. No focal deficits appreciated. EK12/27/16 Normal sinus rhythm. Normal tracing. A&P: 36 yoM admitted to [facility] for unspecified depressive disorder 1. Psych. Plan per Psychiatry. EKG on file. 2. Hyperlipidemia. Continue Lipitor 40 mg daily. 3. Hypothyroidism. The patient's Synthroid was decreased from Synthroid 112 g by mouth daily to 100 g daily related to TFTs. Plan for follow-up with PCP in approximately 4-6 weeks to recheck TFTs. 4. Hypertension. Continue propranolol 120 mg by mouth daily with hold parameters. 5. GERD. Continue Prilosec 40 mg daily. 6. H/O Rt Shoulder pyomyositis/Rhabdomyolysis/RUE cellulitis. Gabapentin 400 mg 3 times a day. States pain has been controlled without use of opiates. Declines pain management. Continue Tylenol 650 mg every 6 hours as needed. Ibuprofen 600 mg every 8 hours as needed. Dry dressing to right upper extremity if needed. Monitor. 7. Follow up with PCP on discharge. 8. Hypokalemia. resolved. 9. Staff member Heath present throughout exam. VS, I&O, 24H, Fishbone Vital Signs/I&O Vital Signs Date Time Temp Pulse Resp B/P (MAP) Pulse Ox O2 Delivery O2 Flow Rate FiO2 01/02/17 08:18 94 123/69 01/02/17 07:17 97.6 20 Room Air Laboratory Data 24H LABS Item Value Date Time Thyroid Stimulating Hormone (TSH) 0.102 uIU/ML L 12/28/16 0658 Free Thyroxine Index 2.7 % 12/28/16 0658 Thyroxine (T4) 7.6 UG/DL 12/28/16 0658 Triiodothyronine (T3) Uptake 36 % 12/28/16 0658 Item Value Date Time Sodium Level 138 MEQ/L 12/27/16 1103 Potassium Level 3.5 MEQ/L 12/27/16 1103 Chloride Level 103 MEQ/L 12/27/16 1103 Carbon Dioxide Level 21 MEQ/L 12/27/16 1103 Anion Gap 14 MEQ/L 12/27/16 1103 Blood Urea Nitrogen 10 MG/DL 12/27/16 1103 Creatinine 0.81 MG/DL 12/27/16 1103 Glomerular Filtration Rate > 60.0 12/27/16 1103 Fasting Glucose 95 MG/DL 12/27/16 1103 Calcium Level 9.1 MG/DL 12/27/16 1103 Carleen Cole Jan 02, 2017 09:05
[2017-01-02] MEDS: GABAPENTIN 400 MG CAP PO SCH ×3 (09:20→20:02)
[2017-01-02] MEDS ORDERED: diphenhydrAMINE 50 MG CAP PO PRN (15:00)
--- NOTE | 2017-01-02 15:11 | MHIPNPDOC ---
[facility] Progress Note Progress Note DATE OF SERVICE: 01/02/17 HISTORY: day 8 of admission for SI related to homelessness and drug relapse, depression. VITAL SIGNS: See below. NEW TEST RESULTS: na CURRENT MEDICATIONS: See below. MENTAL STATUS EXAMINATION: Patient is a 36-year old male, who is tall, medium frame, groomed, fair eye contact. Speech: Is spontaneous Language skills are intact Thought processes including: goal directed and linear Thought content: self focused. Abstract reasoning, and computation: good. Description of associations: good. Description of abnormal or psychotic thoughts: says he is terrified of discharge to [facility] as he does not think he will be successful. This is not the plan so it is irrelevant. Pt is not psychotic. Judgment: limited Insight: very limited. Orientation: well oriented in all spheres. Recent and remote memory: intact. Attention span and concentration: adequate. Fund of knowledge: full Mood: euthymic. Affect: quick to anger, suspicious. DIAGNOSES: ASSESSMENT: pt is self-absorbed. wants lots of attention. pt is taking Cogentin since he was prescribed Abilify as his pervious experience with the drug has caused akathesia. He originally requested Benadryl IM which was ordered for him but someone has replaced that with the Cogentin po. He states it is working out for him so far. In the past it has caused him blurred vision. Pt is visible and attending groups. He gets upset easily when he hears things he does not like. Pt is sleeping but appears to have slept less last night than the previous night. No explanation offered. No behavior challenges on the unit with peers or staff.Pt is eating regularly. Denies problems with n/v/d/c MANAGEMENT PLAN: add po benadryl prn in case pat changes his mind about the Cogentin. Pt is awaiting transfer to [facility]. TIME SPENT: 15 minutes. Vital Signs Vital Signs Date Time Temp Pulse Resp B/P (MAP) Pulse Ox O2 Delivery O2 Flow Rate FiO2 01/02/17 08:18 94 123/69 01/02/17 07:17 97.6 20 Room Air Current Medications Current Medications Acetaminophen (Tylenol Tab) 650 mg Q6HP PRN PO HEADACHE or DISCOMFORT Last administered on 12/31/16t 17:40; Start 12/26/16 at 16:30; Stop 01/25/17 at 16:29 Al Hydrox/Mg Hydrox/Simethicone (Mylanta) 30 ml Q4HP PRN PO HEARTBURN/ INDIGESTION; Start 12/26/16 at 16:30; Stop 01/25/17 at 16:29 Aripiprazole (AbiLIFY) 2 mg QAM PO Last administered on 12/31/16 08:11; Start 12/30/16 at 09:00; Stop 12/31/16 at 10:15; Status DC Aripiprazole (AbiLIFY) 5 mg QAM PO Last administered on 01/02/17 08:17; Start 01/01/17 at 09:00; Stop 01/31/17 at 08:59 Atorvastatin Calcium (Lipitor) 40 mg QHS PO Last administered on 01/01/17 20:45 ; Start 12/27/16 at 21:00; Stop 01/26/17 at 20:59 Benztropine Mesylate (Cogentin) 2 mg Q8HP PRN PO EPS Last administered on 08:17; Start 12/26/16 at 15:00; Stop 01/25/17 at 14:59 Bupropion HCl (Wellbutrin Xl) 300 mg QAM PO Last administered on 12/30/16 09:19 ; Start 12/27/16 at 09:00; Stop 12/30/16 at 10:19; Status DC Diphenhydramine HCl (Benadryl) 50 mg Q6HP PRN IM EPS; Start 12/30/16 at 10:30; Stop 01/29/17 at 10:29 Gabapentin (Neurontin) 400 mg TID PO Last administered on 01/02/17 09:20; Start 01/02/17 at 09:00; Stop 02/01/17 at 08:59 Home Med (Med Rec Complete!) ASDIRECTED XX ; Start 12/26/16 at 13:15; Stop at 13:15; Status DC Hydroxyzine HCl (Atarax) 50 mg Q8H PRN PO ANXIETY Last administered on 12:17; Start 12/26/16 at 15:15; Stop 01/25/17 at 15:14 Ibuprofen (Advil) 600 mg Q8HP PRN PO PAIN Last administered on 01/01/17 18:18; Start 12/27/16 at 09:45; Stop 01/26/17 at 09:44 Levothyroxine Sodium (Synthroid) 100 mcg DAILY@06 PO Last administered on 06:17; Start 12/31/16 at 06:00; Stop 01/30/17 at 05:59 Levothyroxine Sodium (Synthroid) 112 mcg DAILY@0600 PO Last administered on 12/30 06:00; Start 12/27/16 at 06:00; Stop 12/30/16 at 08:33; Status DC Magnesium Hydroxide (Milk Of Magnesia) 30 ml DAILYPRN PRN PO CONSTIPATION; Start 12/26/16 at 16:30; Stop 01/25/17 at 16:29 Olanzapine (ZyPREXA) 5 mg Q6HP PRN PO AGITATION; Start 12/26/16 at 15:00; Stop 01/25/17 at 14:59 Omeprazole (PriLOSEC) 40 mg DAILY PO Last administered on 01/02/17 08:17; Start 12/27/16 at 09:00; Stop 01/26/17 at 08:59 Ondansetron HCl (Zofran) 4 mg Q4HP PRN PO NAUSEA OR VOMITING; Start 12/26/16 at 16:15; Stop 01/25/17 at 16:14 Paroxetine HCl (PAXil) 40 mg QAM PO Last administered on 01/02/17 08:17; Start 12/27/16 at 09:00; Stop 01/26/17 at 08:59 Prazosin HCl (Minipress) 6 mg QHS PO Last administered on 01/01/17 20:45; Start 12/26/16 at 21:00; Stop 01/25/17 at 20:59 Propranolol HCl (Inderal La) 120 mg DAILY PO Last administered on 01/02/17 08: 18; Start 12/27/16 at 09:00; Stop 01/26/17 at 08:59 Quetiapine Fumarate (SEROquel) 100 mg QHS PO Last administered on 01/01/17 20: 45; Start 12/26/16 at 21:00; Stop 01/25/17 at 20:59 Topiramate (TopAMAX) 25 mg QHS PO Last administered on 01/01/17 20:45; Start at 21:00; Stop 01/25/17 at 20:59 Trazodone HCl (Desyrel) 50 mg QHSP PRN PO INSOMNIA Last administered on 20:07; Start 12/26/16 at 16:30; Stop 01/25/17 at 16:29 Allergies Coded Allergies: Haloperidol (Verified Adverse Reaction, Severe, SEVERE DYSTONIA, 09/26/16) Risperidone (Verified Adverse Reaction, Severe, SEVERE DYSTONIA, 09/26/16) Ziprasidone (Verified Adverse Reaction, Severe, SEVERE DYSTONIA, 09/26/16) Divina Adame Jan 02, 2017 15:10
[2017-01-02 18:00] VITALS: BP 130/76
[2017-01-02] MEDS: QUEtiapine FUMARATE 100 MG TAB PO SCH (20:02)
[2017-01-02] MEDS: TOPIRAMATE (TopAMAX) 25 MG TAB PO SCH (20:02)
[2017-01-02] MEDS: ATORVASTATIN 20 MG TAB PO SCH (20:02)
[2017-01-02] MEDS: PRAZOSIN 1 MG CAP PO SCH (20:05)
[2017-01-03] MEDS: LEVOTHYROXINE 100MCG TABLET (0.1MG) PO SCH (05:33)
[2017-01-03 06:00] VITALS: BP 124/65
[2017-01-03] MEDS: OMEPRAZOLE 20 MG CAP PO SCH (08:07)
[2017-01-03] MEDS: GABAPENTIN 400 MG CAP PO SCH ×3 (08:07→20:04)
[2017-01-03] MEDS: PARoxetine 20 MG TAB PO SCH (08:08)
[2017-01-03] MEDS: PROPRANOLOL 60 MG LA CAP PO SCH (08:08)
[2017-01-03] MEDS: SODIUM CHLORIDE NASAL 0.65% SPRAY BTL (OCEAN) PRN ×4 (11:56→20:08)
--- NOTE | 2017-01-03 15:23 | MHIPNPDOC ---
[facility] Progress Note Progress Note DATE OF SERVICE: 01/03/17 HISTORY: day 9 of admission for relapse after discharge from [place], homeless and SI VITAL SIGNS: See below. NEW TEST RESULTS: na CURRENT MEDICATIONS: See below. MENTAL STATUS EXAMINATION: Patient is a 36-year old male, who is medium height, adequately groomed, wearing combination hospital clothes and street clothes, cooperative. Speech: Is soft and clear, spontaneous Language skills are good. Thought processes including: goal directed. Thought content: somatic, but otherwise appropriate. Abstract reasoning, and computation: good. Description of associations: good. Description of abnormal or psychotic thoughts: no psychotic symptoms, denies SI or HI. Judgment: limited Insight: fair. Orientation: well oriented in all spheres. Recent and remote memory: intact Attention span and concentration: adequate. Fund of knowledge: Full Mood: dysthymic chronically. Affect: constricted. DIAGNOSES: . ASSESSMENT: met with pt for 1:1 in afternoon. staff had brought his request to use a straw to teletypewriter operator earlier today. pt c/o dental pain and sensitivity to cold. Straws aer contraband on the unit so pt informed to allow cold liquids to arrive at room temp before consuming and he agrees to this. Pt also c/o nasal dryness and had asked PA for saline spray which was ordered for him. he sounds a little nasally and may be coming down with something which appears to be making the rounds on the unit. Pt also reports fatigue after one dose of Abilify 5 mg. Informed him to give it a few more days and if he does not adapt to the medication and fatigue lingers I will change it to hs, however I do not want to cause problems with insomnia. Pt understood directions. Pt is very visible on the unit attending groups and eating meals. he views TV at times. Not observed socializing. Keeps to self preferring to interact with staff. He has many somatic complaints which are a feature of his pathology. The process to transfer to long-term care is underway with 2[facility] being initiated. MANAGEMENT PLAN: continue to monitor effect of a.m. Abilify. he can request change to hs if he is certain this is necessary. he has a number of issues with insomnia so we don't want to complicate this as he is currently sleeping well and night terrors are controlled. Pt was on Paxil cr before but feels no difference being on regular Paxil this admission. TIME SPENT: 15 minutes. Vital Signs Vital Signs Date Time Temp Pulse Resp B/P (MAP) Pulse Ox O2 Delivery O2 Flow Rate FiO2 01/03/17 08:08 67 130/79 01/03/17 06:00 97.4 16 Room Air Current Medications Current Medications Acetaminophen (Tylenol Tab) 650 mg Q6HP PRN PO HEADACHE or DISCOMFORT Last administered on 12/31/16 17:40; Start 12/26/16 at 16:30; Stop 01/25/17 at 16:29 Al Hydrox/Mg Hydrox/Simethicone (Mylanta) 30 ml Q4HP PRN PO HEARTBURN/ INDIGESTION; Start 12/26/16 at 16:30; Stop 01/25/17 at 16:29 Aripiprazole (AbiLIFY) 2 mg QAM PO Last administered on 12/31/16 08:11; Start 12/30/16 at 09:00; Stop 12/31/16 at 10:15; Status DC Aripiprazole (AbiLIFY) 5 mg QAM PO Last administered on 01/03/17 08:07; Start 01/01/17 at 09:00; Stop 01/31/17 at 08:59 Atorvastatin Calcium (Lipitor) 40 mg QHS PO Last administered on 01/02/17 20: 02; Start 12/27/16 at 21:00; Stop 01/26/17 at 20:59 Benztropine Mesylate (Cogentin) 2 mg Q8HP PRN PO EPS Last administered on 08:17; Start 12/26/16 at 15:00; Stop 01/25/17 at 14:59 Bupropion HCl (Wellbutrin Xl) 300 mg QAM PO Last administered on 12/30/16 09:19 ; Start 12/27/16 at 09:00; Stop 12/30/16 at 10:19; Status DC Diphenhydramine HCl (Benadryl) 50 mg Q4HP PRN PO EPS; Start 01/02/17 at 15:00; Stop 02/01/17 at 14:59 Diphenhydramine HCl (Benadryl) 50 mg Q6HP PRN IM EPS; Start 12/30/16 at 10:30; Stop 01/29/17 at 10:29 Gabapentin (Neurontin) 400 mg TID PO Last administered on 01/03/17 08:07; Start 01/02/17 at 09:00; Stop 02/01/17 at 08:59 Home Med (Med Rec Complete!) ASDIRECTED XX ; Start 12/26/16 at 13:15; Stop at 13:15; Status DC Hydroxyzine HCl (Atarax) 50 mg Q8H PRN PO ANXIETY Last administered on 12:17; Start 12/26/16 at 15:15; Stop 01/25/17 at 15:14 Ibuprofen (Advil) 600 mg Q8HP PRN PO PAIN Last administered on 01/01/17 18:18; Start 12/27/16 at 09:45; Stop 01/26/17 at 09:44 Levothyroxine Sodium (Synthroid) 100 mcg DAILY@06 PO Last administered on 05:33; Start 12/31/16 at 06:00; Stop 01/30/17 at 05:59 Levothyroxine Sodium (Synthroid) 112 mcg DAILY@0600 PO Last administered on 12/30 06:00; Start 12/27/16 at 06:00; Stop 12/30/16 at 08:33; Status DC Magnesium Hydroxide (Milk Of Magnesia) 30 ml DAILYPRN PRN PO CONSTIPATION; Start 12/26/16 at 16:30; Stop 01/25/17 at 16:29 Olanzapine (ZyPREXA) 5 mg Q6HP PRN PO AGITATION; Start 12/26/16 at 15:00; Stop 01/25/17 at 14:59 Omeprazole (PriLOSEC) 40 mg DAILY PO Last administered on 01/03/17 08:07; Start 12/27/16 at 09:00; Stop 01/26/17 at 08:59 Ondansetron HCl (Zofran) 4 mg Q4HP PRN PO NAUSEA OR VOMITING; Start 12/26/16 at 16:15; Stop 01/25/17 at 16:14 Paroxetine HCl (PAXil) 40 mg QAM PO Last administered on 01/03/17 08:08; Start 12/27/16 at 09:00; Stop 01/26/17 at 08:59 Prazosin HCl (Minipress) 6 mg QHS PO Last administered on 01/02/17 20:05; Start 12/26/16 at 21:00; Stop 01/25/17 at 20:59 Propranolol HCl (Inderal La) 120 mg DAILY PO Last administered on 01/03/17 08: 08; Start 12/27/16 at 09:00; Stop 01/26/17 at 08:59 Quetiapine Fumarate (SEROquel) 100 mg QHS PO Last administered on 01/02/17 20: 02; Start 12/26/16 at 21:00; Stop 01/25/17 at 20:59 Sodium Chloride ([place] Nasal [place]) 2 spray Q2HP PRN NA NASAL DRYNESS Last administered on 01/03/17 14:38; Start 01/03/17 at 10:45; Stop 02/02/17 at 10:44 Topiramate (TopAMAX) 25 mg QHS PO Last administered on 01/02/17 20:02; Start 12/26/16 at 21:00; Stop 01/25/17 at 20:59 Trazodone HCl (Desyrel) 50 mg QHSP PRN PO INSOMNIA Last administered on 20:07; Start 12/26/16 at 16:30; Stop 01/25/17 at 16:29 Allergies Coded Allergies: Haloperidol (Verified Adverse Reaction, Severe, SEVERE DYSTONIA, 09/26/16) Risperidone (Verified Adverse Reaction, Severe, SEVERE DYSTONIA, 09/26/16) Ziprasidone (Verified Adverse Reaction, Severe, SEVERE DYSTONIA, 09/26/16) Divina Adame Jan 03, 2017 15:23
[2017-01-03 18:00] VITALS: BP 117/63
[2017-01-03] MEDS: IBUPROFEN 600 MG TAB PO PRN (18:56)
[2017-01-03] MEDS: PRAZOSIN 1 MG CAP PO SCH (20:05)
[2017-01-03] MEDS: QUEtiapine FUMARATE 100 MG TAB PO SCH (20:05)
[2017-01-03] MEDS: TOPIRAMATE (TopAMAX) 25 MG TAB PO SCH (20:05)
[2017-01-03] MEDS: ATORVASTATIN 20 MG TAB PO SCH (20:05)
[2017-01-04] MEDS: LEVOTHYROXINE 100MCG TABLET (0.1MG) PO SCH (06:05)
[2017-01-04 06:57] VITALS: BP 114/60
[2017-01-04] MEDS: SODIUM CHLORIDE NASAL 0.65% SPRAY BTL (OCEAN) PRN ×2 (07:09→12:19)
[2017-01-04] MEDS: PARoxetine 20 MG TAB PO SCH (08:17)
[2017-01-04] MEDS: GABAPENTIN 400 MG CAP PO SCH ×3 (08:17→20:20)
[2017-01-04] MEDS: OMEPRAZOLE 20 MG CAP PO SCH (08:17)
[2017-01-04] MEDS: PROPRANOLOL 60 MG LA CAP PO SCH (08:18)
[2017-01-04] MEDS: IBUPROFEN 600 MG TAB PO PRN (14:18)
[2017-01-04 18:00] VITALS: BP 136/83
[2017-01-04] MEDS: TOPIRAMATE (TopAMAX) 25 MG TAB PO SCH (20:19)
[2017-01-04] MEDS: PRAZOSIN 1 MG CAP PO SCH (20:21)
[2017-01-04] MEDS: ATORVASTATIN 20 MG TAB PO SCH (20:21)
[2017-01-04] MEDS: QUEtiapine FUMARATE 100 MG TAB PO SCH (20:21)
[2017-01-04] MEDS: traZODone 50 MG TAB PO PRN (20:58)
[2017-01-05] MEDS: LEVOTHYROXINE 100MCG TABLET (0.1MG) PO SCH (06:00)
[2017-01-05 06:45] VITALS: BP 137/98
[2017-01-05] MEDS: PARoxetine 20 MG TAB PO SCH (08:04)
[2017-01-05] MEDS: OMEPRAZOLE 20 MG CAP PO SCH (08:04)
[2017-01-05] MEDS: GABAPENTIN 400 MG CAP PO SCH ×3 (08:04→20:06)
[2017-01-05] MEDS: PROPRANOLOL 60 MG LA CAP PO SCH (08:04)
[2017-01-05] MEDS: SODIUM CHLORIDE NASAL 0.65% SPRAY BTL (OCEAN) PRN ×3 (08:32→15:05)
[2017-01-05] MEDS: hydrOXYzine 50 MG TAB PO PRN (16:19)
[2017-01-05 18:41] VITALS: BP 133/74
[2017-01-05] MEDS: ATORVASTATIN 20 MG TAB PO SCH (20:05)
[2017-01-05] MEDS: QUEtiapine FUMARATE 100 MG TAB PO SCH (20:05)
[2017-01-05] MEDS: PRAZOSIN 1 MG CAP PO SCH (20:06)
[2017-01-05] MEDS: TOPIRAMATE (TopAMAX) 25 MG TAB PO SCH (20:06)
[2017-01-06] MEDS: LEVOTHYROXINE 100MCG TABLET (0.1MG) PO SCH (05:59)
[2017-01-06 06:50] VITALS: BP 112/59
[2017-01-06] MEDS: OMEPRAZOLE 20 MG CAP PO SCH (08:34)
[2017-01-06] MEDS: PARoxetine 20 MG TAB PO SCH (08:34)
[2017-01-06] MEDS: GABAPENTIN 400 MG CAP PO SCH ×3 (08:34→20:00)
[2017-01-06] MEDS: SODIUM CHLORIDE NASAL 0.65% SPRAY BTL (OCEAN) PRN (08:34)
[2017-01-06] MEDS: PROPRANOLOL 60 MG LA CAP PO SCH (08:35)
[2017-01-06] MEDS: BENZTROPINE 2 MG TAB PO PRN (09:32)
--- NOTE | 2017-01-06 11:40 | MHIPNPDOC ---
[facility] Progress Note Progress Note DATE OF SERVICE: 01/06/17 HISTORY: day 12 of admission for SI related to relapse, homelessness and depression VITAL SIGNS: See below. NEW TEST RESULTS: na CURRENT MEDICATIONS: See below. MENTAL STATUS EXAMINATION: Patient is a 36-year old male, who is wearing hospital attired, decently groomed, good eye contact. Speech: Is spontaneous. Language skills are good. Thought processes including: goal directed and linear. Thought content: appropriate. Abstract reasoning, and computation: good. Description of associations: good. Description of abnormal or psychotic thoughts: no psychotic process noted, pt denies SI Judgment: fair Insight: limited. Orientation: Recent and remote memory: fair Attention span and concentration: adequate Fund of knowledge: full Mood: euthymic. Affect: congruent. DIAGNOSES: 1. MDD, recurrent, Severe, without psychotic features 2. Poly substance abuse, chronic 3. rule out substance induced mood disorder 4. PTSD 5. h/o ADHD 6. h/o Panic disorder with agoraphobia ASSESSMENT:from reading the sleep evaluations over the weekend it appears pt was having issues with sleep. he denies this when met for 1:1 and states, that' s how it always is with me". He says the Abilify is actually making him feel drowsy in the daytime and he would like to have it changed to dosing at hs. Will take care of pts request now. He adds that "I can feel something good happening though, and does not want the Abilify stopped. He does ask that the trazodone be increased. Pt has been attending programming and getting along with others well on the unit. He eats at mealtime. Denies problems of n/v/d/c, . MANAGEMENT PLAN: continue close observation, increase trazodone to 100 mg at hs and change Abilify to hs dosing. TIME SPENT: 15 minutes. Vital Signs Vital Signs Date Time Temp Pulse Resp B/P (MAP) Pulse Ox O2 Delivery O2 Flow Rate FiO2 01/06/17 08:35 98 114/62 01/06/17 06:50 97.3 16 01/05/17 06:45 Room Air Current Medications Current Medications Acetaminophen (Tylenol Tab) 650 mg Q6HP PRN PO HEADACHE or DISCOMFORT Last administered on 12/31/16t 17:40; Start 12/26/16 at 16:30; Stop 01/25/17 at 16:29 Al Hydrox/Mg Hydrox/Simethicone (Mylanta) 30 ml Q4HP PRN PO HEARTBURN/ INDIGESTION; Start 12/26/16 at 16:30; Stop 01/25/17 at 16:29 Aripiprazole (AbiLIFY) 2 mg QAM PO Last administered on 12/31/16 08:11; Start 12/30/16 at 09:00; Stop 12/31/16 at 10:15; Status DC Aripiprazole (AbiLIFY) 5 mg QAM PO Last administered on 01/06/17 08:34; Start 01/01/17 at 09:00; Stop 01/06/17 at 09:03; Status DC Aripiprazole (AbiLIFY) 5 mg QHS PO ; Start 01/06/17 at 21:00; Stop 02/05/17 at 20:59; Status UNV Atorvastatin Calcium (Lipitor) 40 mg QHS PO Last administered on 01/05/17 20: 05; Start 12/27/16 at 21:00; Stop 01/26/17 at 20:59 Benztropine Mesylate (Cogentin) 2 mg Q8HP PRN PO EPS Last administered on 09:32; Start 12/26/16 at 15:00; Stop 01/25/17 at 14:59 Bupropion HCl (Wellbutrin Xl) 300 mg QAM PO Last administered on 12/30/16 09:19 ; Start 12/27/16 at 09:00; Stop 12/30/16 at 10:19; Status DC Diphenhydramine HCl (Benadryl) 50 mg Q4HP PRN PO EPS; Start 01/02/17 at 15:00; Stop 02/01/17 at 14:59 Diphenhydramine HCl (Benadryl) 50 mg Q6HP PRN IM EPS; Start 12/30/16 at 10:30; Stop 01/29/17 at 10:29 Gabapentin (Neurontin) 400 mg TID PO Last administered on 01/06/17 08:34; Start 01/02/17 at 09:00; Stop 02/01/17 at 08:59 Home Med (Med Rec Complete!) ASDIRECTED XX ; Start 12/26/16 at 13:15; Stop at 13:15; Status DC Hydroxyzine HCl (Atarax) 50 mg Q8H PRN PO ANXIETY Last administered on 16:19; Start 12/26/16 at 15:15; Stop 01/25/17 at 15:14 Ibuprofen (Advil) 600 mg Q8HP PRN PO PAIN Last administered on 01/04/17 14:18 ; Start 12/27/16 at 09:45; Stop 01/26/17 at 09:44 Levothyroxine Sodium (Synthroid) 100 mcg DAILY@06 PO Last administered on 05:59; Start 12/31/16 at 06:00; Stop 01/30/17 at 05:59 Levothyroxine Sodium (Synthroid) 112 mcg DAILY@0600 PO Last administered on 12/30 06:00; Start 12/27/16 at 06:00; Stop 12/30/16 at 08:33; Status DC Magnesium Hydroxide (Milk Of Magnesia) 30 ml DAILYPRN PRN PO CONSTIPATION; Start 12/26/16 at 16:30; Stop 01/25/17 at 16:29 Olanzapine (ZyPREXA) 5 mg Q6HP PRN PO AGITATION; Start 12/26/16 at 15:00; Stop 01/25/17 at 14:59 Omeprazole (PriLOSEC) 40 mg DAILY PO Last administered on 01/06/17 08:34; Start 12/27/16 at 09:00; Stop 01/26/17 at 08:59 Ondansetron HCl (Zofran) 4 mg Q4HP PRN PO NAUSEA OR VOMITING; Start 12/26/16 at 16:15; Stop 01/25/17 at 16:14 Paroxetine HCl (PAXil) 40 mg QAM PO Last administered on 01/06/17 08:34; Start 12/27/16 at 09:00; Stop 01/26/17 at 08:59 Prazosin HCl (Minipress) 6 mg QHS PO Last administered on 01/05/17 20:06; Start 12/26/16 at 21:00; Stop 01/25/17 at 20:59 Propranolol HCl (Inderal La) 120 mg DAILY PO Last administered on 01/06/17 08: 35; Start 12/27/16 at 09:00; Stop 01/26/17 at 08:59 Quetiapine Fumarate (SEROquel) 100 mg QHS PO Last administered on 01/05/17 20: 05; Start 12/26/16 at 21:00; Stop 01/25/17 at 20:59 Sodium Chloride ([place]) 2 spray Q2HP PRN NA NASAL DRYNESS Last administered on 01/06/17 08:34; Start 01/03/17 at 10:45; Stop 02/02/17 at 10:44 Topiramate (TopAMAX) 25 mg QHS PO Last administered on 01/05/17 20:06; Start 12/26/16 at 21:00; Stop 01/25/17 at 20:59 Trazodone HCl (Desyrel) 50 mg QHSP PRN PO INSOMNIA Last administered on 20:58; Start 12/26/16 at 16:30; Stop 01/06/17 at 21:00 Trazodone HCl (Desyrel) 100 mg QHSP PO ; Start 01/06/17 at 21:00; Stop 01/25/17 at 16:29; Status UNV Allergies Coded Allergies: Haloperidol (Verified Adverse Reaction, Severe, SEVERE DYSTONIA, 09/26/16) Risperidone (Verified Adverse Reaction, Severe, SEVERE DYSTONIA, 09/26/16) Ziprasidone (Verified Adverse Reaction, Severe, SEVERE DYSTONIA, 09/26/16) Divina Adame Jan 06, 2017 11:40
[2017-01-06 18:00] VITALS: BP 154/87
[2017-01-06] MEDS: TOPIRAMATE (TopAMAX) 25 MG TAB PO SCH (20:01)
[2017-01-06] MEDS: ATORVASTATIN 20 MG TAB PO SCH (20:01)
[2017-01-06] MEDS: QUEtiapine FUMARATE 100 MG TAB PO SCH (20:01)
[2017-01-06] MEDS: PRAZOSIN 1 MG CAP PO SCH (20:01)
[2017-01-06] MEDS ORDERED: traZODone 100 MG TAB PO PRN (21:00)
[2017-01-07] MEDS: LEVOTHYROXINE 100MCG TABLET (0.1MG) PO SCH (05:49)
[2017-01-07 07:17] VITALS: BP 106/62
[2017-01-07] MEDS: SODIUM CHLORIDE NASAL 0.65% SPRAY BTL (OCEAN) PRN ×2 (08:06→20:12)
[2017-01-07] MEDS: GABAPENTIN 400 MG CAP PO SCH ×3 (08:07→20:10)
[2017-01-07] MEDS: PROPRANOLOL 60 MG LA CAP PO SCH (08:07)
[2017-01-07] MEDS: PARoxetine 20 MG TAB PO SCH (08:07)
[2017-01-07] MEDS: OMEPRAZOLE 20 MG CAP PO SCH (08:07)
[2017-01-07] MEDS ORDERED: diphenhydrAMINE 50 MG CAP PO PRN (08:30)
[2017-01-07] MEDS: BENZTROPINE 2 MG TAB PO PRN ×2 (09:02→20:20)
--- NOTE | 2017-01-07 13:01 | MHIPNPDOC ---
[facility] Progress Note Progress Note DATE OF SERVICE: 01/07/17 HISTORY: day 13 of admission for depression with SI following discharge for inpatient substance abuse treatment. VITAL SIGNS: See below. NEW TEST RESULTS: na. CURRENT MEDICATIONS: See below. MENTAL STATUS EXAMINATION: Patient is a 36-year old male, who is medium frame, wearing some street clothing , clean, fair eye contact, cooperative. Speech: Is logical, spontaneous Language skills are good. Thought processes including: goal directed. Thought content:appropriate, continues with somatic content. Abstract reasoning , and computation: good. Description of associations: good. Description of abnormal or psychotic thoughts: no psychotic process exhibited, admits to fleeting thoughts of suicide which is chronic for him and he describes as "annoying". He has never made a suicide attempt. Admits to cravings for drugs. Judgment: fair Insight: fair. Orientation: well oriented. Recent and remote memory: good. Attention span and concentration: good. Fund of knowledge: Full. Mood: euthymic. Affect: constricted DIAGNOSES: 1. MDD, recurrent, Severe, without psychotic features 2. Poly substance abuse, chronic 3. rule out substance induced mood disorder 4. PTSD 5. h/o ADHD 6. h/o Panic disorder with agoraphobia ASSESSMENT:pt was informed today that his transfer will take place on 01/09. he is glad the wait is not longer. He has been doing well and being honest about his transitions from inpatient rehab to inpatient treatment. His mood is much less depressed. he is participating in the milieu and therapeutic groups. He gets annoyed with others but does not act inappropriately. Sleep was good last night with Abilify at . he feels less tired this a.m. Pt is out on the unit and not laying on the shoulder that is still healing. It should heal much faster now. Pt contacted his mother and informed her of his transfer date. MANAGEMENT PLAN: continue Abilify at , Stefano Mejian. no med changes. continue close observation, encourage group attendance, keeping up room and attending to hygiene needs. no complaints of pain today. he attended team conference and voiced no complaints. TIME SPENT: 25 minutes. Vital Signs Vital Signs Date Time Temp Pulse Resp B/P (MAP) Pulse Ox O2 Delivery O2 Flow Rate FiO2 01/07/17 08:07 80 133/88 01/07/17 07:17 97.5 18 Room Air Current Medications Current Medications Acetaminophen (Tylenol Tab) 650 mg Q6HP PRN PO HEADACHE or DISCOMFORT Last administered on 12/31/16 17:40; Start 12/26/16 at 16:30; Stop 01/25/17 at 16:29 Al Hydrox/Mg Hydrox/Simethicone (Mylanta) 30 ml Q4HP PRN PO HEARTBURN/ INDIGESTION; Start 12/26/16 at 16:30; Stop 01/25/17 at 16:29 Aripiprazole (AbiLIFY) 2 mg QAM PO Last administered on 12/31/16 08:11; Start 12/30/16 at 09:00; Stop 12/31/16 at 10:15; Status DC Aripiprazole (AbiLIFY) 5 mg QAM PO Last administered on 01/06/17 08:34; Start 01/01/17 at 09:00; Stop 01/06/17 at 09:03; Status DC Aripiprazole (AbiLIFY) 5 mg QHS PO Last administered on 01/06/17 20:00; Start 01/06/17 at 21:00; Stop 02/05/17 at 20:59 Atorvastatin Calcium (Lipitor) 40 mg QHS PO Last administered on 01/06/17 20: 01; Start 12/27/16 at 21:00; Stop 01/26/17 at 20:59 Benztropine Mesylate (Cogentin) 2 mg Q8HP PRN PO EPS Last administered on 09:02; Start 12/26/16 at 15:00; Stop 01/25/17 at 14:59 Bupropion HCl (Wellbutrin Xl) 300 mg QAM PO Last administered on 12/30/16 09:19 ; Start 12/27/16 at 09:00; Stop 12/30/16 at 10:19; Status DC Diphenhydramine HCl (Benadryl) 25 mg Q4HP PRN PO EPS; Start 01/07/17 at 08:30; Stop 02/06/17 at 08:29 Diphenhydramine HCl (Benadryl) 50 mg Q4HP PRN PO EPS; Start 01/02/17 at 15:00; Stop 01/07/17 at 08:25; Status DC Diphenhydramine HCl (Benadryl) 50 mg Q6HP PRN IM EPS; Start 12/30/16 at 10:30; Stop 01/29/17 at 10:29 Gabapentin (Neurontin) 400 mg TID PO Last administered on 01/07/17 08:07; Start 01/02/17 at 09:00; Stop 02/01/17 at 08:59 Home Med (Med Rec Complete!) ASDIRECTED XX ; Start 12/26/16 at 13:15; Stop at 13:15; Status DC Hydroxyzine HCl (Atarax) 50 mg Q8H PRN PO ANXIETY Last administered on 16:19; Start 12/26/16 at 15:15; Stop 01/25/17 at 15:14 Ibuprofen (Advil) 600 mg Q8HP PRN PO PAIN Last administered on 01/04/17 14:18 ; Start 12/27/16 at 09:45; Stop 01/26/17 at 09:44 Levothyroxine Sodium (Synthroid) 100 mcg DAILY@06 PO Last administered on 05:49; Start 12/31/16 at 06:00; Stop 01/30/17 at 05:59 Levothyroxine Sodium (Synthroid) 112 mcg DAILY@0600 PO Last administered on 12/30 06:00; Start 12/27/16 at 06:00; Stop 12/30/16 at 08:33; Status DC Magnesium Hydroxide (Milk Of Magnesia) 30 ml DAILYPRN PRN PO CONSTIPATION; Start 12/26/16 at 16:30; Stop 01/25/17 at 16:29 Olanzapine (ZyPREXA) 5 mg Q6HP PRN PO AGITATION; Start 12/26/16 at 15:00; Stop 01/25/17 at 14:59 Omeprazole (PriLOSEC) 40 mg DAILY PO Last administered on 01/07/17 08:07; Start 12/27/16 at 09:00; Stop 01/26/17 at 08:59 Ondansetron HCl (Zofran) 4 mg Q4HP PRN PO NAUSEA OR VOMITING; Start 12/26/16 at 16:15; Stop 01/25/17 at 16:14 Paroxetine HCl (PAXil) 40 mg QAM PO Last administered on 01/07/17 08:07; Start 12/27/16 at 09:00; Stop 01/26/17 at 08:59 Prazosin HCl (Minipress) 6 mg QHS PO Last administered on 01/06/17 20:01; Start 12/26/16 at 21:00; Stop 01/25/17 at 20:59 Propranolol HCl (Inderal La) 120 mg DAILY PO Last administered on 01/07/17 08: 07; Start 12/27/16 at 09:00; Stop 01/26/17 at 08:59 Quetiapine Fumarate (SEROquel) 100 mg QHS PO Last administered on 01/06/17 20: 01; Start 12/26/16 at 21:00; Stop 01/25/17 at 20:59 Sodium Chloride ([place] Nasal [place]) 2 spray Q2HP PRN NA NASAL DRYNESS Last administered on 01/07/17 08:06; Start 01/03/17 at 10:45; Stop 02/02/17 at 10:44 Topiramate (TopAMAX) 25 mg QHS PO Last administered on 01/06/17 20:01; Start 12/26/16 at 21:00; Stop 01/25/17 at 20:59 Trazodone HCl (Desyrel) 50 mg QHSP PRN PO INSOMNIA Last administered on 20:58; Start 12/26/16 at 16:30; Stop 01/06/17 at 21:00; Status DC Trazodone HCl (Desyrel) 100 mg QHSP PRN PO INSOMNIA; Start 01/06/17 at 21:00; Stop 01/25/17 at 16:29 Allergies Coded Allergies: Haloperidol (Verified Adverse Reaction, Severe, SEVERE DYSTONIA, 09/26/16) Risperidone (Verified Adverse Reaction, Severe, SEVERE DYSTONIA, 09/26/16) Ziprasidone (Verified Adverse Reaction, Severe, SEVERE DYSTONIA, 09/26/16) Divina Adame Jan 07, 2017 13:01
[2017-01-07] MEDS: hydrOXYzine 50 MG TAB PO PRN (17:06)
[2017-01-07 18:00] VITALS: BP 134/78
[2017-01-07] MEDS: TOPIRAMATE (TopAMAX) 25 MG TAB PO SCH (20:09)
[2017-01-07] MEDS: ATORVASTATIN 20 MG TAB PO SCH (20:10)
[2017-01-07] MEDS: QUEtiapine FUMARATE 100 MG TAB PO SCH (20:10)
[2017-01-07] MEDS: PRAZOSIN 1 MG CAP PO SCH (20:10)
[2017-01-08] MEDS: LEVOTHYROXINE 100MCG TABLET (0.1MG) PO SCH (06:19)
[2017-01-08 07:05] VITALS: BP 126/66
[2017-01-08] MEDS: SODIUM CHLORIDE NASAL 0.65% SPRAY BTL (OCEAN) PRN ×4 (08:09→19:10)
[2017-01-08] MEDS: OMEPRAZOLE 20 MG CAP PO SCH (08:09)
[2017-01-08] MEDS: PARoxetine 20 MG TAB PO SCH (08:09)
[2017-01-08] MEDS: GABAPENTIN 400 MG CAP PO SCH ×3 (08:09→20:16)
[2017-01-08] MEDS: PROPRANOLOL 60 MG LA CAP PO SCH (08:09)
[2017-01-08] MEDS: BENZTROPINE 2 MG TAB PO PRN ×2 (11:19→19:10)
--- NOTE | 2017-01-08 15:19 | MHIPNPDOC ---
[facility] Progress Note Progress Note DATE OF SERVICE: 01/08/17 HISTORY: day 14 of admission for depression with SI related to relapse with controlled substances and homelessness. VITAL SIGNS: See below. NEW TEST RESULTS: NA CURRENT MEDICATIONS: See below. MENTAL STATUS EXAMINATION: Patient is a 36-year old male, who is clean shaven, wearing some street clothes , fair eye contact, cooperative. Speech: Is clear, logical. Language skills are good. Thought processes including: goal directed. Thought content: appropriate. Abstract reasoning, and computation: good. Description of associations: good. Description of abnormal or psychotic thoughts: no suicidal ideation, no psychotic symptoms. Judgment: fair. Insight: fair. Orientation: well oriented in all spheres. Recent and remote memory: intact Attention span and concentration: adequate. Fund of knowledge: Full. Mood: depressed/anxious. Affect: has range. DIAGNOSES: 1. MDD, recurrent, Severe, without psychotic features 2. Poly substance abuse, chronic 3. rule out substance induced mood disorder 4. PTSD 5. h/o ADHD 6. h/o Panic disorder with agoraphobia ASSESSMENT: pt describes his mood as flat but to the contrary. He has range in his affect and is observed smiling and laughing appropriately at times. He remains visible in milieu. ADL's are attended to regularly. No complaints of side effects to medications other than some vision blurring with addition of Abilify. He is very somatic and Cogentin is relieving his blurry vision. No behavior challenges presented. Sleep is without complaints. MANAGEMENT PLAN: continue with meds, observation status, enc milieu therapy, monitor safety. TIME SPENT: 17 minutes. Vital Signs Vital Signs Date Time Temp Pulse Resp B/P (MAP) Pulse Ox O2 Delivery O2 Flow Rate FiO2 01/08/17 09:00 Room Air 01/08/17 08:09 138/86 01/08/17 07:05 98.6 67 18 Current Medications Current Medications Acetaminophen (Tylenol Tab) 650 mg Q6HP PRN PO HEADACHE or DISCOMFORT Last administered on 12/31/16t 17:40; Start 12/26/16 at 16:30; Stop 01/25/17 at 16:29 Al Hydrox/Mg Hydrox/Simethicone (Mylanta) 30 ml Q4HP PRN PO HEARTBURN/ INDIGESTION; Start 12/26/16 at 16:30; Stop 01/25/17 at 16:29 Aripiprazole (AbiLIFY) 2 mg QAM PO Last administered on 12/31/16 08:11; Start 12/30/16 at 09:00; Stop 12/31/16 at 10:15; Status DC Aripiprazole (AbiLIFY) 5 mg QAM PO Last administered on 01/06/17 08:34; Start 01/01/17 at 09:00; Stop 01/06/17 at 09:03; Status DC Aripiprazole (AbiLIFY) 5 mg QHS PO Last administered on 01/07/17 20:10; Start 01/06/17 at 21:00; Stop 02/05/17 at 20:59 Atorvastatin Calcium (Lipitor) 40 mg QHS PO Last administered on 01/07/17 20: 10; Start 12/27/16 at 21:00; Stop 01/26/17 at 20:59 Benztropine Mesylate (Cogentin) 2 mg Q8HP PRN PO EPS Last administered on 11:19; Start 12/26/16 at 15:00; Stop 01/25/17 at 14:59 Bupropion HCl (Wellbutrin Xl) 300 mg QAM PO Last administered on 12/30/16 09:19 ; Start 12/27/16 at 09:00; Stop 12/30/16 at 10:19; Status DC Diphenhydramine HCl (Benadryl) 25 mg Q4HP PRN PO EPS; Start 01/07/17 at 08:30; Stop 02/06/17 at 08:29 Diphenhydramine HCl (Benadryl) 50 mg Q4HP PRN PO EPS; Start 01/02/17 at 15:00; Stop 01/07/17 at 08:25; Status DC Diphenhydramine HCl (Benadryl) 50 mg Q6HP PRN IM EPS; Start 12/30/16 at 10:30; Stop 01/29/17 at 10:29 Gabapentin (Neurontin) 400 mg TID PO Last administered on 01/08/17 08:09; Start 01/02/17 at 09:00; Stop 02/01/17 at 08:59 Home Med (Med Rec Complete!) ASDIRECTED XX ; Start 12/26/16 at 13:15; Stop at 13:15; Status DC Hydroxyzine HCl (Atarax) 50 mg Q8H PRN PO ANXIETY Last administered on 17:06; Start 12/26/16 at 15:15; Stop 01/25/17 at 15:14 Ibuprofen (Advil) 600 mg Q8HP PRN PO PAIN Last administered on 01/04/17 14:18 ; Start 12/27/16 at 09:45; Stop 01/26/17 at 09:44 Levothyroxine Sodium (Synthroid) 100 mcg DAILY@06 PO Last administered on 06:19; Start 12/31/16 at 06:00; Stop 01/30/17 at 05:59 Levothyroxine Sodium (Synthroid) 112 mcg DAILY@0600 PO Last administered on 12/30 06:00; Start 12/27/16 at 06:00; Stop 12/30/16 at 08:33; Status DC Magnesium Hydroxide (Milk Of Magnesia) 30 ml DAILYPRN PRN PO CONSTIPATION; Start 12/26/16 at 16:30; Stop 01/25/17 at 16:29 Olanzapine (ZyPREXA) 5 mg Q6HP PRN PO AGITATION; Start 12/26/16 at 15:00; Stop 01/25/17 at 14:59 Omeprazole (PriLOSEC) 40 mg DAILY PO Last administered on 01/08/17 08:09; Start 12/27/16 at 09:00; Stop 01/26/17 at 08:59 Ondansetron HCl (Zofran) 4 mg Q4HP PRN PO NAUSEA OR VOMITING; Start 12/26/16 at 16:15; Stop 01/25/17 at 16:14 Paroxetine HCl (PAXil) 40 mg QAM PO Last administered on 01/08/17 08:09; Start 12/27/16 at 09:00; Stop 01/26/17 at 08:59 Prazosin HCl (Minipress) 6 mg QHS PO Last administered on 01/07/17 20:10; Start 12/26/16 at 21:00; Stop 01/25/17 at 20:59 Propranolol HCl (Inderal La) 120 mg DAILY PO Last administered on 01/08/17 08: 09; Start 12/27/16 at 09:00; Stop 01/26/17 at 08:59 Quetiapine Fumarate (SEROquel) 100 mg QHS PO Last administered on 01/07/17 20: 10; Start 12/26/16 at 21:00; Stop 01/25/17 at 20:59 Sodium Chloride ([place] Nasal [place]) 2 spray Q2HP PRN NA NASAL DRYNESS Last administered on 01/08/17 13:50; Start 01/03/17 at 10:45; Stop 02/02/17 at 10:44 Topiramate (TopAMAX) 25 mg QHS PO Last administered on 01/07/17 20:09; Start 12/26/16 at 21:00; Stop 01/25/17 at 20:59 Trazodone HCl (Desyrel) 50 mg QHSP PRN PO INSOMNIA Last administered on 20:58; Start 12/26/16 at 16:30; Stop 01/06/17 at 21:00; Status DC Trazodone HCl (Desyrel) 100 mg QHSP PRN PO INSOMNIA; Start 01/06/17 at 21:00; Stop 01/25/17 at 16:29 Allergies Coded Allergies: Haloperidol (Verified Adverse Reaction, Severe, SEVERE DYSTONIA, 09/26/16) Risperidone (Verified Adverse Reaction, Severe, SEVERE DYSTONIA, 09/26/16) Ziprasidone (Verified Adverse Reaction, Severe, SEVERE DYSTONIA, 09/26/16) Divina Adame Jan 08, 2017 15:19
[2017-01-08 18:00] VITALS: BP 142/82
[2017-01-08] MEDS: TOPIRAMATE (TopAMAX) 25 MG TAB PO SCH (20:16)
[2017-01-08] MEDS: QUEtiapine FUMARATE 100 MG TAB PO SCH (20:16)
[2017-01-08] MEDS: ATORVASTATIN 20 MG TAB PO SCH (20:16)
[2017-01-08] MEDS: PRAZOSIN 1 MG CAP PO SCH (20:16)
[2017-01-09] MEDS: LEVOTHYROXINE 100MCG TABLET (0.1MG) PO SCH (06:23)
[2017-01-09 06:36] VITALS: BP 117/64
[2017-01-09 06:50] VITALS: BP 117/64
[2017-01-09 08:14] VITALS: BP 117/64
[2017-01-09] MEDS: SODIUM CHLORIDE NASAL 0.65% SPRAY BTL (OCEAN) PRN (08:14)
[2017-01-09] MEDS: PROPRANOLOL 60 MG LA CAP PO SCH (08:14)
[2017-01-09] MEDS: GABAPENTIN 400 MG CAP PO SCH (08:14)
[2017-01-09] MEDS: OMEPRAZOLE 20 MG CAP PO SCH (08:14)
[2017-01-09] MEDS: PARoxetine 20 MG TAB PO SCH (08:14)
--- NOTE | 2017-01-09 08:42 | MHDSPDOC ---
[facility] Discharge Summary Discharge Summary DATE OF ADMISSION: Dec 26, 2016 at 14:39 DATE OF DISCHARGE: Jan 09, 2017 DISCHARGE DIAGNOSES: 1. MDD, recurrent, Severe, without psychotic features 2. Poly substance abuse, chronic 3. rule out substance induced mood disorder 4. PTSD by history 5. h/o ADHD 6. h/o Panic disorder with agoraphobia REASON FOR ADMISSION: valentin was discharged from inpatient rehab without housing. moved in with a person from rehab and it didn't work out. became suicidal after relapsing on controlled substances and no where to live. CONSULTANTS INVOLVED:Medicine, Pharmacy, Nursing and Psychiatry TREATMENT AND PROGRESS ON THE UNIT : Valentin is well known to the [facility] at [facility]. He has had numerous admissions over the recent years. Most admissions involve the same set of circumstances. Brad would abuse stimulants , benzo's and [place] He would use some and divert some for income then he would become depressed and seclude himself at home. He would remain immobile in bed for so long that he developed cellulitis on his right shoulder from all the pressure of him laying on it. He had to have wound consults and treatment for this during several stays on the inpatient unit. He was usually suicidal when admitted but had no plan and has never made a suicide attempt. It would be reasonable to say that Brad has chronic thoughts of suicide when things are not going as he would like them to. On the unit Brad would attend groups with very little prompting. He ate at meal time, showered at mid day, to allow himself a mid day stress reduction period, and was appropriate in his interactions with others. He would rarely socialize with peers, preferring to seek out staff. He has at times entertained the thought of working in the mental health field. He seems to prefer to identify more with staff than with peers. HOSPITAL COURSE: Much of Brad's time is spent pursuing somatic complaints, however he does appear to have a legitimate concern when it comes to Abilify or any SGA, such as Seroquel, both of which he is currently prescribed. He reports akathesia even at low doses on antipsychotics and will dose with either Cogentin or Benadryl which are effective. However, the Cogentin causes him some blurred vision. While a patient here he had both prns prescribed for him for EPS so he could chose the most appropriate med for himself. Over the course of treating Brad, he has found Paxil the most effective SSRI for his anxiety and depression. He has a persistent level of depression that was being addressed with Paxil CR and Wellbutrin 300 mg during a past admission , but this time around he is taking regular Paxil and allowed augmentation with Abilify. Typically, the advertising copy writer does not prescribed 2 SGA's at one time, but in Brad's case he has had persistent insomnia as well so the addition of Seroquel at hs has been effective in attaining a good sleep schedule. His SGA are kept as low as necessary to be effective and limit akathesia. He currently describes his mood as "flat" and his affect is blunted a times, but he also is observed smiling and laughing when appropriate. He is feeling his emotions and not numb to them. In the past Brad has experienced trauma by witnessing a friend's many years ago. He still has night terrors which are now controlled by prazosin 6 mg. This has added a great deal to improving his sleep. Brad does not demonstrate other symptoms of PTSD that require immediate attention. He has a h/ o ADHD but it has not been necessary for him to receive medication for this. Number 1, his abuse of controlled substances would preclude him from having this type of med ordered. If necessary Strattera or Wellbutrin would be the only appropriate choice, but we have found him alert, attentive and able to complete tasks without any medication. His concentration is good and he is able to organize himself for the day. Brad has not had any panic attacks of any significance in several months. He will abuse Xanax and seeks it out on discharge. A review of his I-Stop will show his preference for drugs includes amphetamines, alprazolam, Ambien, oxycodone. He has been weaned off opiates during his last 2 admissions. When undergoing treatment for his cellulitis which developed into rhabdomyolytic, he was given narcotic pain relief for a brief time. When his outpatient provider in [place] declined his request for additional narcotics, he sought out his doctors [facility] who provided him with everything he was seeking. This advertising copy writer has notified that office of Brad's problem with addiction and his misuse of those prescriptions. The doctor stated he was not aware that Brad had such a problem or was misusing these medications. It is doubtful Brad will be able to obtain controlled substances of any quantity from them again. DISCHARGE ASSESSMENT:Brad's depression is slowly resolving. He appears committed to abstinence in terms of drug use and his willingness to allow us ot contact his provider vincent mary who wrote all these scripts for him over the years, shows his determination to stop abusing controlled substances. Brad is intelligent and needs time to formulate a plan for himself that includes working or college so he can achieve some goals and support himself in life. He has a very involved Mother in the [facility] area and 2 siblings he is not close to. He also has a father that he describes as alcoholic and "inappropriate". Brad states that he is "terrified of being discharged without support". He feels he needs a [facility] residence or a supportive type environment in order to establish himself for the future. He does not feel capable of doing this with only case management and outpatient behavioral health appointments. He feels he needs stronger support and to live with others who are staying clean and getting their life in order. We are not able to offer that and feel he would benefit from long-term placement to support his goals. Medical data: HPI: 36 yo M admitted to [facility] for unspecified depressive disorder, being medically examined today. Requested to reevaluate the patient related to chronic right arm pain. He is requesting to add back gabapentin 400 mg 3 times a day for his pain. He states he does not use this for mood. Previously on admission he had stated he did not feel he needs opiates for pain at this time. He states his chronic Rt shoulder and arm pain has been controlled without using oxycodone. He states he still has a small open area on the right deltoid area which is improving. No drainage. No increased erythema or pain. He denies fevers or chills. Denies any weakness, fatigue, CASTILLO, CP, SOB, cough, palpitations, abdominal pain, N/V/D or changes in bowel or bladder habits. ISTOP is accessed reference #[id number] indicating oxycodone 20 mg #120 dispensed 12/18/[address] Quispe. PMHx: Hyperlipidemia Hypothyroid Chronic pain Allergic rhinitis Hypertension Depression Anxiety ADHD Insomnia Panic attack PTSD Agoraphobia ECT 7 admission at [facility] 12/16 H/O Substance use RUE pyomyositis/rhabdomyolysis/cellulitis 08/09. PSHX: Denies SOCHX: Resides in: [place], currently states he is homeless Marital Status: Single Kids: None Employment: Unemployed Tobacco use: Denies ETOH: Denies Illicit Drugs: Patient states recently relapsed using benzodiazepines and opiates. History of Marijuana. IV Drug Use: Denies Tattoos done unprofessionally: Denies FAMHX: Mother: Alive, well Father: Alive, alcohol abuse, depression Siblings: Alive, well Children: None Unexpected deaths due to medical reasons: None. ROS: As noted in HPI, otherwise 11pt ROS of systems reviewed and unremarkable. PE: GEN: 36 yo M, appears stated age. Well-nourished, well developed. No acute distress. Alert and oriented x 3. Pleasant, interactive. HEENT: Normocephalic, atraumatic. Pupils are equal, round, and reactive to light. Extraocular movements are intact. No nystagmus appreciated. Sclera are nonicteric. Conjunctiva without injection. Nose midline. Nasal turbinates without drainage noted. EACs both patent BL. TMs both visualized and kaba with good cone of light, no bulging or erythema. No facial asymmetry. Mild tenderness with palpation over the maxillary sinuses bilaterally. Moist mucous membranes. Dentition poor, several dental caries are noted. Pharynx pink and moist. Neck supple, trachea midline. No lymphadenopathy or thyromegaly appreciated. CHEST: Regular rate and rhythm, +S1, +S2 LUNGS: Clear to auscultation bilaterally. No wheezes, rales, or rhonchi. Breathing appears symmetric and easy. Patient is speaking in full sentences. No accessory muscle use. ABD: Round, soft, non-tender, non-distended. +Bowel sounds throughout. No rebound or guarding. No costovertebral angle tenderness. EXT: Pulses 2+ bilaterally dorsalis pedis and radial. No lower extremity edema appreciated. SKIN: Small persistent open area RUE related to previous ulceration, approx 2 cm diameter. appears pink, no drainage, no TTP, no warmth. NEURO: Alert and oriented x 3. Cranial nerves III-XII are intact. No focal deficits appreciated. EK12/27/16 Normal sinus rhythm. Normal tracing. A&P: 36 yoM admitted to [facility] for unspecified depressive disorder 1. Psych. Plan per Psychiatry. EKG on file. 2. Hyperlipidemia. Continue Lipitor 40 mg daily. 3. Hypothyroidism. The patient's Synthroid was decreased from Synthroid 112 g by mouth daily to 100 g daily related to TFTs. Plan for follow-up with PCP in approximately 4-6 weeks to recheck TFTs. 4. Hypertension. Continue propranolol 120 mg by mouth daily with hold parameters. 5. GERD. Continue Prilosec 40 mg daily. 6. H/O Rt Shoulder pyomyositis/Rhabdomyolysis/RUE cellulitis. Gabapentin 400 mg 3 times a day. States pain has been controlled without use of opiates. Declines pain management. Continue Tylenol 650 mg every 6 hours as needed. Ibuprofen 600 mg every 8 hours as needed. Dry dressing to right upper extremity if needed. Monitor. 7. Follow up with PCP on discharge. 8. Hypokalemia. resolved. MENTAL STATUS EXAMINATION ON DISCHARGE: Patient is a 36-year old male, who is medium build, clean shaven, fair eye contact, wearing street clothes. Speech is spontaneous Language skills are good Thought processes including: goal directed Thought content: appropriate Abstract reasoning, and computation: good. Description of associations: good. Description of abnormal or psychotic thoughts: pt is not psychotic, no delusions. FOI or GEORGE, he has fleeting thoughts of SI but not recently, he is frequently suicidal without plan or intent. Judgment: limited Insight: limited Orientation to well oriented to person, place, time and surroundings. Recent and remote memory: grossly intact. Attention span and concentration: good. Fund of knowledge: Full. Mood: "flat". Affect: broad MEDICATIONS ON DISCHARGE: - Paxil 40mg for anxiety/depression. - Abilify 5 mg at for depression. - Seroquel 100 mg for insomnia. -Cogentin 2 mg for eps/akathesia prn- pt uses every 12 hours -Benadryl 25 mg prn for eps/akathesia -Topirimate 25 mg for insomnia (this med was started when he was at [facility] in October and was left in place) PLAN/FOLLOWUP ARRANGEMENTS: transfer pt to [facility] for additional treatment. Pt is currently prescribed Gabapentin for pain, 400 mg tid , along with prn Ibuprofen 600 mg. Doc to Doc completed, transport order signed. The amount of time spent in the coordination of care for this patient was approximately 40 minutes. Vital Signs/I&Os Vital Signs Date Time Temp Pulse Resp B/P (MAP) Pulse Ox O2 Delivery O2 Flow Rate FiO2 01/09/17 06:50 97.3 86 16 117/64 (81) 01/08/17 09:00 Room Air Medications Scheduled Atorvastatin Calcium (Atorvastatin Calcium) 40 Mg Tab, 40 MG PO QHS, (Reported) Gabapentin (Gabapentin) 400 Mg Cap, 400 MG PO TID, (Reported) Levothyroxine Sodium (Synthroid) 112 Mcg Tab, 112 MCG PO DAILY, (Reported) Omeprazole (Omeprazole) 40 Mg Cap, 40 MG PO DAILY, (Reported) Paroxetine Hydrochloride (Paxil) 40 Mg Tab, 40 MG PO DAILY, (Reported) Prazosin Hcl (Prazosin HCl) 2 Mg Cap, 6 MG PO QHS, (Reported) Propranolol HCl (Propranolol HCl ER) 120 Mg Cap, 120 MG PO DAILY, (Reported) Quetiapine Fumerate (Quetiapine Fumarate) 100 Mg Tab, 100 MG PO QHS, (Reported) Topiramate (Topiramate) 25 Mg Tab, 25 MG PO QHS, (Reported) Scheduled PRN Hydroxyzine HCl (Hydroxyzine HCl) 50 Mg Tab, 50 MG PO TID PRN for ANXIETY, ( Reported) Allergies Coded Allergies: Haloperidol (Verified Adverse Reaction, Severe, SEVERE DYSTONIA, 09/26/16) Risperidone (Verified Adverse Reaction, Severe, SEVERE DYSTONIA, 09/26/16) Ziprasidone (Verified Adverse Reaction, Severe, SEVERE DYSTONIA, 09/26/16) Divina Adame Jan 09, 2017 08:42
== END 2017-01-09 11:10 | disposition home or self-care (01) | DRG 885 ==
LOC: M ED 09:13 → M ED INP 14:39 → M PSY 15:02
PROVIDERS: ADMIT Psychiatry & Neurology Psychiatry; ATTEND Psychiatry & Neurology Psychiatry
DX: F33.2 Major depressive disorder, recurrent severe without psychotic features (principal); F40.01 Agoraphobia with panic disorder; F43.10 Post-traumatic stress disorder, unspecified; F19.94 Other psychoactive substance use, unspecified with psychoactive substance-induced mood disorder; F90.9 Attention-deficit hyperactivity disorder, unspecified type; E03.9 Hypothyroidism, unspecified; E78.5 Hyperlipidemia, unspecified; G47.00 Insomnia, unspecified; I10 Essential (primary) hypertension; J30.9 Allergic rhinitis, unspecified; G89.29 Other chronic pain; K21.9 Gastro-esophageal reflux disease without esophagitis; E87.6 Hypokalemia; Z79.899 Other long term (current) drug therapy; Z88.8 Allergy status to other drugs, medicaments and biological substances; F11.10 Opioid abuse, uncomplicated

== ENCOUNTER → 2017-04-22 | Outpatient (CLI) | payer MEDICARE, MEDICAID ==
[~2017-04-22] MED LIST changes: +ATOR40TA75 PO; +BUPR10TASR PO; +BUPR300T34 PO; +GABA-283 PO; +HYDR50TA70 PO; +IBUP1TAB7 PO; +INDE1CAP5 PO; +LEVO112T2 PO; +LEVO125T4 PO; +OMEP40CA2 PO; +PRAZ2CAP PO; +QUET1TAB8 PO; +TOPI25TA10 PO
[2017-04-22 11:40] LABS: BASO # 0.1 10^3/uL (0.0-0.2); BASO % 0.7 % (0.0-1.0); EOS # 0.1 10^3/uL (0.0-0.50); EOS % 0.8 % (0.0-3.0); IMMATURE GRANULOCYTE % 0.3 % (0-0); LYMPH # 2.3 10^3/uL (1.5-4.5); MEAN CORPUSCULAR HEMOGLOBIN 32.9 pg (27.0-33.0); MEAN CORPUSCULAR HGB CONC 36.1 g/dl (32.0-36.5); MONO # 0.7 10^3/uL (0.0-0.8); MONO % 9.1 % (0.0-5.0); NEUTROPHILS # 4.3 10^3/uL (1.8-7.7); NEUTROPHILS % 58.1 % (36.0-66.0); PLATELET COUNT, AUTOMATED 207 10^3/uL (150-450); WHITE BLOOD COUNT 7.4 10^3/uL (4.0-10.0)
[2017-04-22 12:34] LABS: ALBUMIN 4.1 GM/DL (3.2-5.2); ALBUMIN/GLOBULIN RATIO 1.05 (1.00-1.93); ALKALINE PHOSPHATASE 54 U/L (45-117); ALT/SGPT 103 U/L (12-78); ANION GAP 7 MEQ/L (8-16); AST/SGOT 70 U/L (7-37); BILIRUBIN,TOTAL 0.7 MG/DL (0.2-1.0); BLOOD UREA NITROGEN 18 MG/DL (7-18); CALCIUM LEVEL 9.2 MG/DL (8.5-10.1); CARBON DIOXIDE LEVEL 29 MEQ/L (21-32); CHLORIDE LEVEL 104 MEQ/L (98-107); CHOLESTEROL LEVEL 160 MG/DL (<200); CREATININE FOR GFR 0.85 MG/DL (0.70-1.30); FREE T4 1.01 NG/DL (0.76-1.46); GLOMERULAR FILTRATION RATE > 60.0 (>60); GLUCOSE, FASTING 84 MG/DL (70-105); POTASSIUM SERUM 4.2 MEQ/L (3.5-5.1); SODIUM LEVEL 140 MEQ/L (136-145); TRIGLYCERIDES LEVEL 187 MG/DL (<150)
== END ==
LOC: M LAB 10:58
PROVIDERS: ATTEND Nurse Practitioner Adult Health
DX: E78.00 Pure hypercholesterolemia, unspecified (principal); E55.9 Vitamin D deficiency, unspecified; I10 Essential (primary) hypertension; Z79.899 Other long term (current) drug therapy

== ENCOUNTER 2017-05-12 12:41 | Emergency (ER) | payer MEDICARE, MEDICAID ==
[~2017-05-12] VITALS: Ht 175.3 cm; Wt 120.5 kg
[2017-05-12 12:42] VITALS: BP 138/88
[2017-05-12] MEDS ORDERED: [UNRECOGNIZED DRUG - OTHER] (12:54)
[2017-05-12] MEDS ORDERED: EFFE37.527 PO (12:54)
[2017-05-12] MEDS ORDERED: TRAZ50TA11 PO (12:54)
[2017-05-12] MEDS ORDERED: SUBO4MIS SL (12:54)
[2017-05-12 14:28] LABS: BASO # 0.1 10^3/uL (0.0-0.2); BASO % 0.7 % (0.0-1.0); EOS # 0.1 10^3/uL (0.0-0.50); EOS % 1.1 % (0.0-3.0); IMMATURE GRANULOCYTE % 0.3 % (0-0); LYMPH # 2.6 10^3/uL (1.5-4.5); LYMPH % 29.8 % (24.0-44.0); MEAN CORPUSCULAR HEMOGLOBIN 32.7 pg (27.0-33.0); MEAN CORPUSCULAR HGB CONC 34.6 g/dl (32.0-36.5); MEAN CORPUSCULAR VOLUME 94.4 fl (80.0-96.0); MONO # 0.8 10^3/uL (0.0-0.8); MONO % 9.1 % (0.0-5.0); NEUTROPHILS # 5.2 10^3/uL (1.8-7.7); PLATELET COUNT, AUTOMATED 218 10^3/uL (150-450); WHITE BLOOD COUNT 8.8 10^3/uL (4.0-10.0)
[2017-05-12 14:44] LABS: ALBUMIN 3.5 GM/DL (3.2-5.2); ALBUMIN/GLOBULIN RATIO 0.76 (1.00-1.93); ALKALINE PHOSPHATASE 75 U/L (45-117); ALT/SGPT 78 U/L (12-78); ANION GAP 6 MEQ/L (8-16); AST/SGOT 57 U/L (7-37); BILIRUBIN,TOTAL 0.3 MG/DL (0.2-1.0); BLOOD UREA NITROGEN 13 MG/DL (7-18); CALCIUM LEVEL 8.4 MG/DL (8.5-10.1); CARBON DIOXIDE LEVEL 29 MEQ/L (21-32); CHLORIDE LEVEL 106 MEQ/L (98-107); CREATININE FOR GFR 0.84 MG/DL (0.70-1.30); GLOMERULAR FILTRATION RATE > 60.0 (>60); GLUCOSE, FASTING 82 MG/DL (70-105); POTASSIUM SERUM 3.9 MEQ/L (3.5-5.1); SODIUM LEVEL 141 MEQ/L (136-145); TOTAL PROTEIN 8.1 GM/DL (6.4-8.2)
--- NOTE | 2017-05-12 14:50 | REP ---
Duplex extremity venous ultrasound: Bilateral lower extremity dragan History: Bilateral pedal edema. Question DVT. Findings: The deep veins are anechoic and fully compressible from the groin to the popliteal fossa in the right and left lower extremity. Color flow imaging is homogeneous. Spectral Doppler interrogation demonstrates intact respiratory variation in flow and normal manual augmentation of flow. There is no evidence of deep vein thrombosis. Impression: Negative bilateral lower extremity duplex venous ultrasound. No evidence of deep vein thrombosis. Signed by Ulysses Paz MD 05/12/2017 02:41 P
[2017-05-12] MEDS ORDERED: KEFL500C17 PO (15:04)
[2017-05-12] MEDS ORDERED: HYDR25TAB PO (15:04)
== END 2017-05-12 15:18 | disposition home or self-care (01) ==
LOC: M ED 12:41
DX: R60.0 Localized edema (principal); I10 Essential (primary) hypertension; Z72.0 Tobacco use

== ENCOUNTER 2017-05-26 18:23 | Emergency (ER) | payer MEDICARE, MEDICAID | END 2017-05-26 19:01 | disposition left against medical advice (07) | LOC: M ED 18:23 | DX: R06.02 Shortness of breath (principal); Z53.21 Procedure and treatment not carried out due to patient leaving prior to being seen by health care provider ==

== ENCOUNTER 2017-05-26 21:23 | Emergency (ER) | payer MEDICARE, MEDICAID ==
[2017-05-26] MEDS: IPRATROPIUM 0.5MG/ALBUTEROL 2.5MG INH SOL UD 3ML (DUONEB)(J7620) NEB ×2 (23:12→23:40)
[2017-05-26] MEDS: predniSONE 20 MG TAB PO (23:49)
== END 2017-05-26 23:59 | disposition home or self-care (01) ==
LOC: M ED 21:23
DX: J20.9 Acute bronchitis, unspecified (principal); I10 Essential (primary) hypertension; K21.9 Gastro-esophageal reflux disease without esophagitis; E03.9 Hypothyroidism, unspecified; F17.210 Nicotine dependence, cigarettes, uncomplicated; M54.14 Radiculopathy, thoracic region; G89.29 Other chronic pain; F33.9 Major depressive disorder, recurrent, unspecified; F41.9 Anxiety disorder, unspecified; F90.9 Attention-deficit hyperactivity disorder, unspecified type; F19.11 Other psychoactive substance abuse, in remission; Z79.899 Other long term (current) drug therapy; Z79.2 Long term (current) use of antibiotics; Z88.8 Allergy status to other drugs, medicaments and biological substances
CPT/HCPCS: 71046

== ENCOUNTER 2017-06-05 14:49 | Inpatient (IN) | payer MEDICARE, MEDICAID ==
[2017-06-05 16:07] LABS: MEAN CORPUSCULAR HEMOGLOBIN 32.7 pg (27.0-33.0); MEAN CORPUSCULAR HGB CONC 34.9 g/dl (32.0-36.5); MEAN CORPUSCULAR VOLUME 93.7 fl (80.0-96.0); PLATELET COUNT, AUTOMATED 196 10^3/uL (150-450); RED BLOOD COUNT 4.59 10^6/uL (4.30-6.10); RED CELL DISTRIBUTION WIDTH 12.7 % (11.5-14.5); WHITE BLOOD COUNT 7.5 10^3/uL (4.0-10.0)
[2017-06-05 16:36] LABS: AMPHETAMINES LEVEL URINE NEGATIVE (NEGATIVE); BARBITURATES URINE NEGATIVE (NEGATIVE); BENZODIAZEPINES URINE NEGATIVE (NEGATIVE); CANNABINOIDS URINE NEGATIVE (NEGATIVE); COCAINE METABOLITE URINE NEGATIVE (NEGATIVE); METHADONE URINE NEGATIVE (NEGATIVE); OPIATES URINE NEGATIVE (NEGATIVE); PHENCYCLIDINE URINE NEGATIVE (NEGATIVE)
[2017-06-05 16:42] LABS: ALBUMIN 3.8 GM/DL (3.2-5.2); ALBUMIN/GLOBULIN RATIO 1.03 (1.00-1.93); ALKALINE PHOSPHATASE 93 U/L (45-117); ALT/SGPT 61 U/L (12-78); ANION GAP 6 MEQ/L (8-16); AST/SGOT 30 U/L (7-37); BILIRUBIN,DIRECT < 0.1 MG/DL (0.0-0.2); BILIRUBIN,TOTAL 0.3 MG/DL (0.2-1.0); BLOOD UREA NITROGEN 18 MG/DL (7-18); CALCIUM LEVEL 8.9 MG/DL (8.5-10.1); CARBON DIOXIDE LEVEL 31 MEQ/L (21-32); CHLORIDE LEVEL 104 MEQ/L (98-107); CREATININE FOR GFR 0.83 MG/DL (0.70-1.30); ETHYL ALCOHOL (ETHANOL) < 0.003 % (0.000-0.010); GLOMERULAR FILTRATION RATE > 60.0 (>60); GLUCOSE, FASTING 97 MG/DL (70-105); POTASSIUM SERUM 3.6 MEQ/L (3.5-5.1); SALICYLATE LEVEL 1.8 MG/DL (5.0-30.0); SODIUM LEVEL 141 MEQ/L (136-145); THYROID STIMULATING HORMONE 0.957 uIU/ML (0.358-3.740); TOTAL PROTEIN 7.5 GM/DL (6.4-8.2)
[2017-06-05 16:50] LABS: ACETAMINOPHEN LEVEL < 2.0 UG/ML (10.0-30.0)
[2017-06-05] MEDS ORDERED: MAALOX 30 ML SUSP *UDC PO (18:00)
[2017-06-05] MEDS ORDERED: MOM 30ML SUSPENSION UDC PO (18:00)
[2017-06-05] MEDS ORDERED: ACETAMINOPHEN TAB 650MG DOSE (2X325MG) PO (18:00)
[2017-06-05] MEDS ORDERED: ALBUTEROL 90 MCG/ACT 8GM HFA INHALER INH (22:15)
[2017-06-05] MEDS: traZODone 50 MG TAB PO (22:32)
[2017-06-05] MEDS: RAMELTEON 8 MG TAB (ROZEREM) PO (22:32)
[2017-06-05] MEDS: ATORVASTATIN 20 MG TAB PO (22:33)
[2017-06-05] MEDS: BUPRENORPHINE/NALOXONE 2-0.5MG SUBLINGUAL TABLET(SUBOXONE) SL (22:33)
[2017-06-05] MEDS: GABAPENTIN 300 MG CAP PO (22:33)
[2017-06-05] MEDS: PRAZOSIN 1 MG CAP PO (22:34)
[2017-06-06] MEDS: traZODone 50 MG TAB PO ×2 (01:21→21:24)
[2017-06-06] MEDS: LEVOTHYROXINE 112MCG TABLET (0.112MG) PO (06:22)
[2017-06-06] MEDS: GABAPENTIN 300 MG CAP PO ×3 (08:44→21:23)
[2017-06-06] MEDS: VENLAFAXINE **XR** 75MG CAPSULE PO (08:44)
[2017-06-06] MEDS: OMEPRAZOLE 20 MG CAP PO (08:44)
[2017-06-06] MEDS: guaiFENesin ER 600 MG TAB PO ×2 (08:45→21:24)
[2017-06-06] MEDS: PROPRANOLOL 60 MG LA CAP PO (08:45)
[2017-06-06] MEDS: BUPRENORPHINE/NALOXONE 8-2MG SUBLINGUAL TABLET(SUBOXONE) SL (15:59)
[2017-06-06] MEDS: ATORVASTATIN 20 MG TAB PO (21:23)
[2017-06-06] MEDS: PRAZOSIN 1 MG CAP PO (21:24)
[2017-06-06] MEDS: RAMELTEON 8 MG TAB (ROZEREM) PO (21:25)
[2017-06-07] MEDS: LEVOTHYROXINE 112MCG TABLET (0.112MG) PO (06:06)
[2017-06-07] MEDS: guaiFENesin ER 600 MG TAB PO ×2 (08:20→20:25)
[2017-06-07] MEDS: INFLUENZA QUADRIVALENT PF VACCINE 0.5ML SYRINGE (90686) IM (08:20)
[2017-06-07] MEDS: GABAPENTIN 300 MG CAP PO ×3 (08:20→20:25)
[2017-06-07] MEDS: VENLAFAXINE **XR** 75MG CAPSULE PO (08:20)
[2017-06-07] MEDS: OMEPRAZOLE 20 MG CAP PO (08:20)
[2017-06-07] MEDS: PROPRANOLOL 60 MG LA CAP PO (08:20)
[2017-06-07] MEDS ORDERED: BUPRENORPHINE/NALOXONE 2-0.5MG SUBLINGUAL TABLET(SUBOXONE) SL (09:00)
[2017-06-07] MEDS: BUPRENORPHINE/NALOXONE 8-2MG SUBLINGUAL TABLET(SUBOXONE) SL (09:07)
[2017-06-07] MEDS: LITHIUM CARBONATE 300 MG CAP PO (12:14)
[2017-06-07] MEDS: RAMELTEON 8 MG TAB (ROZEREM) PO (20:25)
[2017-06-07] MEDS: traZODone 50 MG TAB PO (20:25)
[2017-06-07] MEDS: ATORVASTATIN 20 MG TAB PO (20:25)
[2017-06-07] MEDS: PRAZOSIN 1 MG CAP PO (20:27)
[2017-06-08] MEDS: LEVOTHYROXINE 112MCG TABLET (0.112MG) PO (06:09)
[2017-06-08] MEDS ORDERED: PARoxetine 25 MG CR TAB (PAXIL CR) PO (09:00)
[2017-06-08] MEDS: LITHIUM CARBONATE 300 MG CAP PO ×3 (09:17→19:59)
[2017-06-08] MEDS: BUPRENORPHINE/NALOXONE 8-2MG SUBLINGUAL TABLET(SUBOXONE) SL (09:17)
[2017-06-08] MEDS: OMEPRAZOLE 20 MG CAP PO (09:17)
[2017-06-08] MEDS: guaiFENesin ER 600 MG TAB PO ×2 (09:17→20:01)
[2017-06-08] MEDS: GABAPENTIN 300 MG CAP PO ×3 (09:18→20:00)
[2017-06-08] MEDS: PROPRANOLOL 60 MG LA CAP PO (09:18)
[2017-06-08] MEDS: hydrOXYzine 50 MG TAB PO ×2 (10:11→20:00)
[2017-06-08] MEDS: RAMELTEON 8 MG TAB (ROZEREM) PO (19:59)
[2017-06-08] MEDS: PRAZOSIN 1 MG CAP PO (20:00)
[2017-06-08] MEDS: ATORVASTATIN 20 MG TAB PO (20:00)
[2017-06-08] MEDS: traZODone 50 MG TAB PO (20:01)
[2017-06-09] MEDS: LEVOTHYROXINE 112MCG TABLET (0.112MG) PO (05:59)
[2017-06-09] MEDS: OMEPRAZOLE 20 MG CAP PO (09:07)
[2017-06-09] MEDS: guaiFENesin ER 600 MG TAB PO ×2 (09:07→20:02)
[2017-06-09] MEDS: LITHIUM CARBONATE 300 MG CAP PO ×3 (09:07→20:01)
[2017-06-09] MEDS: GABAPENTIN 300 MG CAP PO ×3 (09:07→20:02)
[2017-06-09] MEDS: BUPRENORPHINE/NALOXONE 8-2MG SUBLINGUAL TABLET(SUBOXONE) SL (09:08)
[2017-06-09] MEDS: PROPRANOLOL 60 MG LA CAP PO (09:08)
[2017-06-09] MEDS: hydrOXYzine 50 MG TAB PO (10:11)
[2017-06-09] MEDS: QUEtiapine FUMARATE 25 MG TAB PO (16:58)
[2017-06-09] MEDS: RAMELTEON 8 MG TAB (ROZEREM) PO (20:01)
[2017-06-09] MEDS: ATORVASTATIN 20 MG TAB PO (20:02)
[2017-06-09] MEDS: PRAZOSIN 1 MG CAP PO (20:02)
[2017-06-09] MEDS: traZODone 50 MG TAB PO (20:02)
[2017-06-10] MEDS: LEVOTHYROXINE 112MCG TABLET (0.112MG) PO (05:55)
[2017-06-10] MEDS: QUEtiapine FUMARATE 25 MG TAB PO ×2 (07:39→18:04)
[2017-06-10] MEDS: PROPRANOLOL 60 MG LA CAP PO (08:42)
[2017-06-10] MEDS: OMEPRAZOLE 20 MG CAP PO (08:42)
[2017-06-10] MEDS: PARoxetine 12.5 MG **CR** TAB PO (08:42)
[2017-06-10] MEDS: GABAPENTIN 300 MG CAP PO ×3 (08:42→20:09)
[2017-06-10] MEDS: BUPRENORPHINE/NALOXONE 8-2MG SUBLINGUAL TABLET(SUBOXONE) SL (08:42)
[2017-06-10] MEDS: guaiFENesin ER 600 MG TAB PO ×2 (08:42→20:10)
[2017-06-10] MEDS: LITHIUM CARBONATE 300 MG CAP PO ×3 (08:42→20:10)
[2017-06-10] MEDS: RAMELTEON 8 MG TAB (ROZEREM) PO (20:09)
[2017-06-10] MEDS: traZODone 50 MG TAB PO (20:09)
[2017-06-10] MEDS: PRAZOSIN 1 MG CAP PO (20:09)
[2017-06-10] MEDS: ATORVASTATIN 20 MG TAB PO (20:10)
[2017-06-11] MEDS: LEVOTHYROXINE 112MCG TABLET (0.112MG) PO (06:08)
[2017-06-11] MEDS: guaiFENesin ER 600 MG TAB PO ×2 (08:06→20:52)
[2017-06-11] MEDS: LITHIUM CARBONATE 300 MG CAP PO ×3 (08:06→20:52)
[2017-06-11] MEDS: BUPRENORPHINE/NALOXONE 8-2MG SUBLINGUAL TABLET(SUBOXONE) SL (08:06)
[2017-06-11] MEDS: PROPRANOLOL 60 MG LA CAP PO (08:06)
[2017-06-11] MEDS: OMEPRAZOLE 20 MG CAP PO (08:06)
[2017-06-11] MEDS: GABAPENTIN 300 MG CAP PO ×3 (08:06→20:51)
[2017-06-11] MEDS: PARoxetine 12.5 MG **CR** TAB PO (08:06)
[2017-06-11] MEDS: QUEtiapine FUMARATE 25 MG TAB PO (11:24)
[2017-06-11] MEDS: ATORVASTATIN 20 MG TAB PO (20:51)
[2017-06-11] MEDS: RAMELTEON 8 MG TAB (ROZEREM) PO (20:51)
[2017-06-11] MEDS: traZODone 50 MG TAB PO (20:52)
[2017-06-11] MEDS: PRAZOSIN 1 MG CAP PO (20:52)
[2017-06-12] MEDS: LEVOTHYROXINE 112MCG TABLET (0.112MG) PO (05:22)
[2017-06-12] MEDS: GABAPENTIN 300 MG CAP PO ×3 (08:01→20:13)
[2017-06-12] MEDS: LITHIUM CARBONATE 300 MG CAP PO ×2 (08:01→16:48)
[2017-06-12] MEDS: OMEPRAZOLE 20 MG CAP PO (08:01)
[2017-06-12] MEDS: guaiFENesin ER 600 MG TAB PO ×2 (08:01→20:13)
[2017-06-12] MEDS: PROPRANOLOL 60 MG LA CAP PO (08:01)
[2017-06-12] MEDS: PARoxetine 25 MG CR TAB (PAXIL CR) PO (08:01)
[2017-06-12] MEDS: BUPRENORPHINE/NALOXONE 8-2MG SUBLINGUAL TABLET(SUBOXONE) SL (08:01)
[2017-06-12 08:03] LABS: LITHIUM LEVEL 0.41 MEQ/L (0.60-1.20)
[2017-06-12] MEDS: QUEtiapine FUMARATE 50 MG TAB PO ×2 (09:16→17:28)
[2017-06-12] MEDS ORDERED: LITHIUM CARBONATE 150 MG CAP PO (16:00)
[2017-06-12] MEDS: RAMELTEON 8 MG TAB (ROZEREM) PO (20:12)
[2017-06-12] MEDS: ATORVASTATIN 20 MG TAB PO (20:13)
[2017-06-12] MEDS: traZODone 50 MG TAB PO (20:13)
[2017-06-12] MEDS: PRAZOSIN 1 MG CAP PO (20:14)
[2017-06-13] MEDS: LEVOTHYROXINE 112MCG TABLET (0.112MG) PO (06:04)
[2017-06-13] MEDS: PARoxetine 25 MG CR TAB (PAXIL CR) PO (08:11)
[2017-06-13] MEDS: OMEPRAZOLE 20 MG CAP PO (08:11)
[2017-06-13] MEDS: GABAPENTIN 300 MG CAP PO ×3 (08:11→20:30)
[2017-06-13] MEDS: guaiFENesin ER 600 MG TAB PO ×2 (08:11→20:30)
[2017-06-13] MEDS: BUPRENORPHINE/NALOXONE 8-2MG SUBLINGUAL TABLET(SUBOXONE) SL (08:11)
[2017-06-13] MEDS: LITHIUM CARBONATE 300 MG CAP PO ×2 (08:11→20:30)
[2017-06-13] MEDS: PROPRANOLOL 60 MG LA CAP PO (08:12)
[2017-06-13] MEDS: QUEtiapine FUMARATE 50 MG TAB PO ×2 (09:00→17:53)
[2017-06-13] MEDS: traZODone 50 MG TAB PO (20:30)
[2017-06-13] MEDS: RAMELTEON 8 MG TAB (ROZEREM) PO (20:30)
[2017-06-13] MEDS: ATORVASTATIN 20 MG TAB PO (20:30)
[2017-06-13] MEDS: PRAZOSIN 1 MG CAP PO (20:32)
[2017-06-13] MEDS: CLINDAMYCIN TOP 1% SOLN 60 ML BTL TOP (20:41)
[2017-06-14] MEDS: LEVOTHYROXINE 112MCG TABLET (0.112MG) PO (05:53)
[2017-06-14] MEDS: GABAPENTIN 300 MG CAP PO ×3 (08:05→20:01)
[2017-06-14] MEDS: PARoxetine 25 MG CR TAB (PAXIL CR) PO (08:05)
[2017-06-14] MEDS: OMEPRAZOLE 20 MG CAP PO (08:05)
[2017-06-14] MEDS: LITHIUM CARBONATE 300 MG CAP PO ×2 (08:05→20:01)
[2017-06-14] MEDS: CLINDAMYCIN TOP 1% SOLN 60 ML BTL TOP ×2 (08:09→19:59)
[2017-06-14] MEDS: guaiFENesin ER 600 MG TAB PO ×2 (09:00→20:00)
[2017-06-14] MEDS: PROPRANOLOL 60 MG LA CAP PO ×2 (09:00→11:18)
[2017-06-14] MEDS: BUPRENORPHINE/NALOXONE 8-2MG SUBLINGUAL TABLET(SUBOXONE) SL (09:51)
[2017-06-14] MEDS: QUEtiapine FUMARATE 50 MG TAB PO ×2 (11:56→18:50)
[2017-06-14] MEDS: ATORVASTATIN 20 MG TAB PO (20:00)
[2017-06-14] MEDS: PRAZOSIN 1 MG CAP PO (20:00)
[2017-06-14] MEDS: RAMELTEON 8 MG TAB (ROZEREM) PO (20:00)
[2017-06-14] MEDS: traZODone 50 MG TAB PO (20:01)
[2017-06-15] MEDS: LEVOTHYROXINE 112MCG TABLET (0.112MG) PO (05:49)
[2017-06-15] MEDS: LITHIUM CARBONATE 300 MG CAP PO ×2 (08:05→20:35)
[2017-06-15] MEDS: OMEPRAZOLE 20 MG CAP PO (08:05)
[2017-06-15] MEDS: QUEtiapine FUMARATE 50 MG TAB PO ×2 (08:05→16:27)
[2017-06-15] MEDS: GABAPENTIN 300 MG CAP PO ×3 (08:05→20:34)
[2017-06-15] MEDS: BUPRENORPHINE/NALOXONE 8-2MG SUBLINGUAL TABLET(SUBOXONE) SL (08:05)
[2017-06-15] MEDS: PARoxetine 25 MG CR TAB (PAXIL CR) PO (08:05)
[2017-06-15] MEDS: CLINDAMYCIN TOP 1% SOLN 60 ML BTL TOP ×2 (08:06→20:31)
[2017-06-15] MEDS: PROPRANOLOL 60 MG LA CAP PO (08:07)
[2017-06-15] MEDS: guaiFENesin ER 600 MG TAB PO ×2 (08:08→20:34)
[2017-06-15] MEDS: ATORVASTATIN 20 MG TAB PO (20:34)
[2017-06-15] MEDS: traZODone 50 MG TAB PO (20:34)
[2017-06-15] MEDS: RAMELTEON 8 MG TAB (ROZEREM) PO (20:34)
[2017-06-15] MEDS: PRAZOSIN 1 MG CAP PO (20:34)
[2017-06-16] MEDS: LEVOTHYROXINE 112MCG TABLET (0.112MG) PO (06:04)
[2017-06-16] MEDS: PROPRANOLOL 60 MG LA CAP PO (08:45)
[2017-06-16] MEDS: GABAPENTIN 300 MG CAP PO (08:45)
[2017-06-16] MEDS: PARoxetine 25 MG CR TAB (PAXIL CR) PO (08:45)
[2017-06-16] MEDS: guaiFENesin ER 600 MG TAB PO (08:45)
[2017-06-16] MEDS: OMEPRAZOLE 20 MG CAP PO (08:46)
[2017-06-16] MEDS: LITHIUM CARBONATE 300 MG CAP PO (08:46)
[2017-06-16] MEDS: BUPRENORPHINE/NALOXONE 8-2MG SUBLINGUAL TABLET(SUBOXONE) SL (08:46)
[2017-06-16] MEDS: CLINDAMYCIN TOP 1% SOLN 60 ML BTL TOP (08:47)
[2017-06-16 09:16] LABS: LITHIUM LEVEL 0.59 MEQ/L (0.60-1.20)
== END 2017-06-16 12:15 | disposition home or self-care (01) | DRG 885 ==
LOC: M ED 14:49 → M ED INP 17:50 → M PSY 21:32
DX: F31.81 Bipolar II disorder (principal); F11.20 Opioid dependence, uncomplicated; F43.10 Post-traumatic stress disorder, unspecified; F60.3 Borderline personality disorder; I10 Essential (primary) hypertension; E78.5 Hyperlipidemia, unspecified; E03.9 Hypothyroidism, unspecified; G89.29 Other chronic pain; J30.9 Allergic rhinitis, unspecified; Z88.8 Allergy status to other drugs, medicaments and biological substances; Z79.899 Other long term (current) drug therapy

== ENCOUNTER → 2017-07-03 | Outpatient (CLI) | payer MEDICARE, MEDICAID ==
[2017-07-03 18:37] LABS: LITHIUM LEVEL 0.74 MEQ/L (0.60-1.20)
== END ==
LOC: M LAB 17:41
DX: F11.20 Opioid dependence, uncomplicated (principal)
CPT/HCPCS: 80178

== ENCOUNTER → 2017-10-12 | Outpatient (CLI) | payer MEDICARE, MEDICAID ==
[2017-10-12 10:37] LABS: HEMATOCRIT 41.5 % (42.0-52.0); HEMOGLOBIN 14.8 g/dl (13.5-17.5); MEAN CORPUSCULAR HEMOGLOBIN 31.8 pg (27.0-33.0); MEAN CORPUSCULAR HGB CONC 35.7 g/dl (32.0-36.5); MEAN CORPUSCULAR VOLUME 89.1 fl (80.0-96.0); PLATELET COUNT, AUTOMATED 192 10^3/uL (150-450); RED BLOOD COUNT 4.66 10^6/uL (4.30-6.10); RED CELL DISTRIBUTION WIDTH 12.7 % (11.5-14.5); WHITE BLOOD COUNT 8.2 10^3/uL (4.0-10.0)
[2017-10-12 11:08] LABS: ALBUMIN 3.7 GM/DL (3.2-5.2); ALBUMIN/GLOBULIN RATIO 0.97 (1.00-1.93); ALKALINE PHOSPHATASE 105 U/L (45-117); ALT/SGPT 55 U/L (12-78); ANION GAP 6 MEQ/L (8-16); AST/SGOT 30 U/L (7-37); BILIRUBIN,TOTAL 0.8 MG/DL (0.2-1.0); BLOOD UREA NITROGEN 10 MG/DL (7-18); CALCIUM LEVEL 8.7 MG/DL (8.5-10.1); CARBON DIOXIDE LEVEL 30 MEQ/L (21-32); CHLORIDE LEVEL 105 MEQ/L (98-107); CREATININE FOR GFR 0.92 MG/DL (0.70-1.30); GLOMERULAR FILTRATION RATE > 60.0 (>60); GLUCOSE, FASTING 88 MG/DL (70-100); POTASSIUM SERUM 3.8 MEQ/L (3.5-5.1); SODIUM LEVEL 141 MEQ/L (136-145); TOTAL PROTEIN 7.5 GM/DL (6.4-8.2)
[2017-10-12 11:09] LABS: LITHIUM LEVEL 1.07 MEQ/L (0.60-1.20)
== END ==
LOC: M LAB 10:09
DX: F31.81 Bipolar II disorder (principal)
CPT/HCPCS: 80178

== ENCOUNTER → 2017-11-17 | Outpatient (REF) | payer MEDICARE, MEDICAID ==
[2017-11-17 13:37] LABS: ALBUMIN 3.9 GM/DL (3.2-5.2); ALBUMIN/GLOBULIN RATIO 1.18 (1.00-1.93); ALKALINE PHOSPHATASE 108 U/L (45-117); ALT/SGPT 55 U/L (12-78); ANION GAP 6 MEQ/L (8-16); AST/SGOT 40 U/L (7-37); BILIRUBIN,TOTAL 0.5 MG/DL (0.2-1.0); BLOOD UREA NITROGEN 16 MG/DL (7-18); CALCIUM LEVEL 8.6 MG/DL (8.5-10.1); CARBON DIOXIDE LEVEL 28 MEQ/L (21-32); CHLORIDE LEVEL 106 MEQ/L (98-107); CHOLESTEROL LEVEL 173 MG/DL (<200); CHOLESTEROL RISK RATIO 4.435 (<5); GLOMERULAR FILTRATION RATE > 60.0 (>60); GLUCOSE, FASTING 88 MG/DL (70-100); HDL CHOLESTEROL 39 MG/DL (>40); LDL CHOLESTEROL 77.2 MG/DL (<100); NON-HDL-C 134 MG/DL; POTASSIUM SERUM 4.2 MEQ/L (3.5-5.1); SODIUM LEVEL 140 MEQ/L (136-145); TOTAL PROTEIN 7.2 GM/DL (6.4-8.2); TRIGLYCERIDES LEVEL 284 MG/DL (<150)
[2017-11-17 14:04] LABS: ESTIMATED AVERAGE GLUCOSE 100 MG/DL (60-110); HEMOGLOBIN A1c 5.1 %
== END ==
LOC: M LAB REF 12:25
DX: E78.70 Disorder of bile acid and cholesterol metabolism, unspecified (principal); Z13.1 Encounter for screening for diabetes mellitus; E03.9 Hypothyroidism, unspecified; R73.01 Impaired fasting glucose
CPT/HCPCS: 84443

== ENCOUNTER → 2017-12-24 | Outpatient (CLI) | payer MEDICARE, MEDICAID ==
[2017-12-24 14:28] LABS: HEMATOCRIT 43.7 % (42.0-52.0); HEMOGLOBIN 15.2 g/dl (13.5-17.5); MEAN CORPUSCULAR HGB CONC 34.8 g/dl (32.0-36.5); PLATELET COUNT, AUTOMATED 192 10^3/uL (150-450); RED BLOOD COUNT 4.75 10^6/uL (4.30-6.10); RED CELL DISTRIBUTION WIDTH 13.6 % (11.5-14.5); WHITE BLOOD COUNT 7.4 10^3/uL (4.0-10.0)
[2017-12-24 14:57] LABS: ALBUMIN 3.7 GM/DL (3.2-5.2); ALBUMIN/GLOBULIN RATIO 1.03 (1.00-1.93); ALKALINE PHOSPHATASE 139 U/L (45-117); ALT/SGPT 56 U/L (12-78); ANION GAP 9 MEQ/L (8-16); AST/SGOT 24 U/L (7-37); BILIRUBIN,TOTAL 0.3 MG/DL (0.2-1.0); BLOOD UREA NITROGEN 13 MG/DL (7-18); CALCIUM LEVEL 8.4 MG/DL (8.5-10.1); CARBON DIOXIDE LEVEL 26 MEQ/L (21-32); CHLORIDE LEVEL 110 MEQ/L (98-107); CHOLESTEROL LEVEL 181 MG/DL (<200); CHOLESTEROL RISK RATIO 6.241 (<5); CREATININE FOR GFR 1.02 MG/DL (0.70-1.30); GLOMERULAR FILTRATION RATE > 60.0 (>60); GLUCOSE, FASTING 118 MG/DL (70-100); HDL CHOLESTEROL 29 MG/DL (>40); NON-HDL-C 152 MG/DL; POTASSIUM SERUM 4.2 MEQ/L (3.5-5.1); SODIUM LEVEL 145 MEQ/L (136-145); TOTAL PROTEIN 7.3 GM/DL (6.4-8.2); TRIGLYCERIDES LEVEL 500 MG/DL (<150)
== END ==
LOC: M LAB 13:34
DX: F31.81 Bipolar II disorder (principal)
CPT/HCPCS: 93005

== ENCOUNTER 2018-04-20 20:42 | Inpatient (IN) | payer MEDICARE, MEDICAID ==
[2018-04-20 21:30] LABS: HEMATOCRIT 49.4 % (42.0-52.0); HEMOGLOBIN 17.3 g/dl (13.5-17.5); MEAN CORPUSCULAR HEMOGLOBIN 32.2 pg (27.0-33.0); PLATELET COUNT, AUTOMATED 224 10^3/uL (150-450); RED BLOOD COUNT 5.37 10^6/uL (4.30-6.10); RED CELL DISTRIBUTION WIDTH 12.7 % (11.5-14.5); WHITE BLOOD COUNT 7.4 10^3/uL (4.0-10.0)
[2018-04-20] MEDS: chlorproMAZINE 25 MG TAB (Q0161) PO (21:52)
[2018-04-20 22:03] LABS: ACETAMINOPHEN LEVEL < 2.0 UG/ML (10.0-30.0); ALBUMIN 4.4 GM/DL (3.2-5.2); ALBUMIN/GLOBULIN RATIO 1.19 (1.00-1.93); ALKALINE PHOSPHATASE 123 U/L (45-117); ALT/SGPT 73 U/L (12-78); ANION GAP 7 MEQ/L (8-16); AST/SGOT 30 U/L (7-37); BILIRUBIN,DIRECT 0.2 MG/DL (0.0-0.2); BILIRUBIN,TOTAL 1.2 MG/DL (0.2-1.0); BLOOD UREA NITROGEN 12 MG/DL (7-18); CALCIUM LEVEL 9.3 MG/DL (8.5-10.1); CARBON DIOXIDE LEVEL 29 MEQ/L (21-32); CHLORIDE LEVEL 104 MEQ/L (98-107); CREATININE FOR GFR 1.15 MG/DL (0.70-1.30); ETHYL ALCOHOL (ETHANOL) < 0.003 % (0.000-0.010); FREE THYROXINE INDEX 3.9 % (1.4-3.8); GLOMERULAR FILTRATION RATE > 60.0 (>60); GLUCOSE, FASTING 99 MG/DL (70-100); LITHIUM LEVEL < 0.20 MEQ/L (0.60-1.20); POTASSIUM SERUM 3.9 MEQ/L (3.5-5.1); SALICYLATE LEVEL < 1.7 MG/DL (5.0-30.0); SODIUM LEVEL 140 MEQ/L (136-145); T UPTAKE 38 % (33-40); THYROID STIMULATING HORMONE 0.825 uIU/ML (0.358-3.740); THYROXINE (T4) 10.3 UG/DL (4.5-12.0); TOTAL PROTEIN 8.1 GM/DL (6.4-8.2)
[2018-04-20 22:40] LABS: AMPHETAMINES LEVEL URINE POSITIVE (NEGATIVE); BARBITURATES URINE NEGATIVE (NEGATIVE); BENZODIAZEPINES URINE POSITIVE (NEGATIVE); CANNABINOIDS URINE POSITIVE (NEGATIVE); COCAINE METABOLITE URINE NEGATIVE (NEGATIVE); METHADONE URINE NEGATIVE (NEGATIVE); OPIATES URINE NEGATIVE (NEGATIVE); PHENCYCLIDINE URINE NEGATIVE (NEGATIVE)
[2018-04-20] MEDS ORDERED: MOM 30ML SUSPENSION UDC PO (23:15)
[2018-04-20] MEDS ORDERED: ACETAMINOPHEN TAB 650MG DOSE (2X325MG) PO (23:15)
[2018-04-20] MEDS: LITHIUM CARBONATE 600 MG CAP PO (23:57)
[2018-04-21] MEDS: PALIPERIDONE 3 MG ER TAB (INVEGA) PO (09:00)
[2018-04-21] MEDS: NICOTINE 14 MG/24 HR TRANSDERMAL TD (09:07)
[2018-04-21] MEDS: OLANZapine ORAL DISINTEGRATING TAB 5MG PO (09:08)
[2018-04-21] MEDS: hydrOXYzine 25 MG TAB PO ×4 (09:08→21:45)
[2018-04-21] MEDS: OMEPRAZOLE 20 MG CAP PO (10:33)
[2018-04-21] MEDS: LORazepam 2 MG TAB PO (10:33)
[2018-04-21] MEDS: chlorproMAZINE 25 MG TAB (Q0161) PO ×2 (10:38→21:45)
[2018-04-21] MEDS: LEVOTHYROXINE 112MCG TABLET (0.112MG) PO (10:50)
[2018-04-21] MEDS: PROPRANOLOL 60 MG LA CAP PO (10:51)
[2018-04-21] MEDS: DIVALPROEX 500MG *ER* TAB PO ×2 (12:11→21:45)
[2018-04-21] MEDS: LACTOBACILLUS ACIDOPHILUS CAP (BACID) PO (17:09)
[2018-04-21] MEDS: ATORVASTATIN 20 MG TAB PO (21:45)
[2018-04-21] MEDS: QUEtiapine FUMARATE 50 MG TAB PO (21:45)
[2018-04-22] MEDS: MAALOX 30 ML SUSP *UDC PO (00:22)
[2018-04-22] MEDS: OLANZapine ORAL DISINTEGRATING TAB 5MG PO ×2 (00:42→23:48)
[2018-04-22] MEDS: LEVOTHYROXINE 112MCG TABLET (0.112MG) PO (06:03)
[2018-04-22] MEDS: LACTOBACILLUS ACIDOPHILUS CAP (BACID) PO ×2 (08:07→17:24)
[2018-04-22] MEDS: PROPRANOLOL 60 MG LA CAP PO (08:08)
[2018-04-22] MEDS: chlorproMAZINE 25 MG TAB (Q0161) PO ×2 (08:08→20:04)
[2018-04-22] MEDS: hydrOXYzine 25 MG TAB PO ×5 (08:08→20:04)
[2018-04-22] MEDS: DIVALPROEX 500MG *ER* TAB PO (08:08)
[2018-04-22] MEDS: OMEPRAZOLE 20 MG CAP PO (08:08)
[2018-04-22] MEDS: NICOTINE 14 MG/24 HR TRANSDERMAL TD (08:08)
[2018-04-22] MEDS: PARoxetine 20 MG TAB PO (09:55)
[2018-04-22] MEDS: QUEtiapine FUMARATE 50 MG TAB PO (20:04)
[2018-04-22] MEDS: ATORVASTATIN 20 MG TAB PO (20:05)
[2018-04-22] MEDS: DIVALPROEX 250MG *ER* TAB PO (20:05)
[2018-04-23] MEDS: LEVOTHYROXINE 112MCG TABLET (0.112MG) PO (05:55)
[2018-04-23] MEDS: LACTOBACILLUS ACIDOPHILUS CAP (BACID) PO ×2 (08:12→17:26)
[2018-04-23] MEDS: chlorproMAZINE 25 MG TAB (Q0161) PO ×2 (08:12→20:06)
[2018-04-23] MEDS: DIVALPROEX 250MG *ER* TAB PO ×2 (08:12→20:05)
[2018-04-23] MEDS: PROPRANOLOL 60 MG LA CAP PO (08:12)
[2018-04-23] MEDS: OMEPRAZOLE 20 MG CAP PO (08:12)
[2018-04-23] MEDS: PARoxetine 20 MG TAB PO (08:12)
[2018-04-23] MEDS: NICOTINE 14 MG/24 HR TRANSDERMAL TD (08:13)
[2018-04-23] MEDS: hydrOXYzine 25 MG TAB PO (08:14)
[2018-04-23] MEDS ORDERED: hydrOXYzine 25 MG TAB PO (12:00)
[2018-04-23] MEDS: OLANZapine ORAL DISINTEGRATING TAB 5MG PO (17:26)
[2018-04-23] MEDS: QUEtiapine FUMARATE 50 MG TAB PO (20:06)
[2018-04-23] MEDS: ATORVASTATIN 20 MG TAB PO (20:06)
[2018-04-24] MEDS: OLANZapine ORAL DISINTEGRATING TAB 5MG PO (04:48)
[2018-04-24] MEDS: LEVOTHYROXINE 112MCG TABLET (0.112MG) PO (05:03)
[2018-04-24] MEDS: LACTOBACILLUS ACIDOPHILUS CAP (BACID) PO (07:28)
[2018-04-24] MEDS: PARoxetine 20 MG TAB PO (08:07)
[2018-04-24] MEDS: DIVALPROEX 250MG *ER* TAB PO (08:07)
[2018-04-24] MEDS: OMEPRAZOLE 20 MG CAP PO (08:07)
[2018-04-24] MEDS: chlorproMAZINE 25 MG TAB (Q0161) PO (08:07)
[2018-04-24] MEDS: PROPRANOLOL 60 MG LA CAP PO (08:07)
[2018-04-24] MEDS: NICOTINE 14 MG/24 HR TRANSDERMAL TD (08:08)
== END 2018-04-24 13:15 | disposition home or self-care (01) | DRG 885 ==
LOC: M PSY 04-21 00:14 → M ED 20:42 → M ED INP 23:12
DX: F31.60 Bipolar disorder, current episode mixed, unspecified (principal); F11.20 Opioid dependence, uncomplicated; F43.10 Post-traumatic stress disorder, unspecified; K21.9 Gastro-esophageal reflux disease without esophagitis; E78.5 Hyperlipidemia, unspecified; E03.9 Hypothyroidism, unspecified; J30.9 Allergic rhinitis, unspecified; I10 Essential (primary) hypertension; F41.9 Anxiety disorder, unspecified; G47.00 Insomnia, unspecified; Z62.811 Personal history of psychological abuse in childhood; Z81.1 Family history of alcohol abuse and dependence; Z56.0 Unemployment, unspecified; Z88.8 Allergy status to other drugs, medicaments and biological substances; Z79.899 Other long term (current) drug therapy

== ENCOUNTER 2018-07-26 07:13 | Emergency (ER) | payer MEDICAID, MEDICARE ==
[~2018-07-26] VITALS: Ht 175.3 cm; Wt 109.1 kg
[~2018-07-26 07:13] MED LIST changes: +ALBU17IN2 INH; +AMOX500C PO; +BENZ200C70 PO; +CHLOR25TA PO; +CLIN1GEL22 EXT; -CLON1TAB PO; +CLON1TAB8 PO; +DEPA250T2 PO; +EFFE150C2 PO; +EFFE37.5 PO; +FOLI1TAB11 PO; -FOLI1TAB4 PO; -GABA-283 PO; +GABA-843 PO; +GABA-845 PO; -GABA800T PO; +GABA800T4 PO; +HYDR25TAB PO; -INDE1CAP5 PO; +INDE60CA4 PO; +LITH300C PO; +MUCI600T31 PO; +MUCI600T37 PO; +NAPR-885 PO; -NAPR500T3 PO; +PARO20TA3 PO; +PRAZ5CAP PO; +PRED20TA PO; +QUET5TAB PO; +ROZE8TAB16 PO; +SUBO4MIS SL; -TRAZ-136 PO; +TRAZ-160 PO; +TRAZ-163 PO; +VENTAER INH; -ZOFR20TA PO; +ZOFR4TAB16 PO; +[UNRECOGNIZED DRUG - OTHER]
[2018-07-26 07:14] VITALS: BP 136/87
[2018-07-26] MEDS ORDERED: SUBO8MIS SL (07:24)
[2018-07-26] MEDS ORDERED: ADDE1TAB14 PO (07:24)
[2018-07-26] MEDS ORDERED: ZYPR5TAB2 PO (07:24)
[2018-07-26] MEDS ORDERED: LINZ290C PO (07:24)
[2018-07-26] MEDS ORDERED: ROZE8TAB16 PO (07:24)
[2018-07-26] MEDS ORDERED: PAXI25TA13 PO ×2 (07:38→07:39)
[2018-07-26] MEDS ORDERED: PARoxetine 25 MG CR TAB (PAXIL CR) PO ONE (07:45)
== END 2018-07-26 08:06 | disposition home or self-care (01) ==
LOC: M ED 07:13
DX: Z76.0 Encounter for issue of repeat prescription (principal); F33.9 Major depressive disorder, recurrent, unspecified; I10 Essential (primary) hypertension; F17.210 Nicotine dependence, cigarettes, uncomplicated; Z88.8 Allergy status to other drugs, medicaments and biological substances; Z79.890 Hormone replacement therapy; Z79.899 Other long term (current) drug therapy

== ENCOUNTER 2018-08-10 17:30 | Emergency (ER) | payer MEDICARE, MEDICAID ==
[~2018-08-10] VITALS: Ht 175.3 cm; Wt 115.4 kg
[2018-08-10 17:30] VITALS: BP 160/93
[~2018-08-10 17:30] MED LIST changes: +LINZ290C PO; +PAXI25TA13 PO; +SUBO8MIS SL; +ZYPR5TAB2 PO
[2018-08-10] MEDS ORDERED: PAXI40TA10 PO (17:36)
[2018-08-10] MEDS ORDERED: PAXI30TA11 PO (19:22)
== END 2018-08-10 19:27 | disposition home or self-care (01) ==
LOC: M ED 17:30
DX: Z76.0 Encounter for issue of repeat prescription (principal); F32.9 Major depressive disorder, single episode, unspecified; Z72.0 Tobacco use

== ENCOUNTER → 2018-09-29 | Outpatient (REF) | payer MEDICARE, MEDICAID ==
[~2018-09-29] MED LIST changes: -/ATOR40TA PO; -/QUET10TA; -/QUET10TA PO; +LIPI1TAB2 PO; +PAXI30TA11 PO; +SERO1TAB; +SERO1TAB PO; +SERT-141 PO; -SERT50TA PO
[2018-09-29 18:25] LABS: ALBUMIN 4.3 GM/DL (3.2-5.2); ALT/SGPT 65 U/L (12-78); BILIRUBIN,TOTAL 0.5 MG/DL (0.2-1.0); BLOOD UREA NITROGEN 16 MG/DL (7-18); CALCIUM LEVEL 8.8 MG/DL (8.5-10.1); CARBON DIOXIDE LEVEL 27 MEQ/L (21-32); CHLORIDE LEVEL 106 MEQ/L (98-107); CHOLESTEROL LEVEL 195 MG/DL (<200); CHOLESTEROL RISK RATIO 4.756 (<5); GLOMERULAR FILTRATION RATE > 60.0 (>60); GLUCOSE, FASTING 86 MG/DL (70-100); HDL CHOLESTEROL 41 MG/DL (>40); NON-HDL-C 154 MG/DL; SODIUM LEVEL 139 MEQ/L (136-145); TOTAL PROTEIN 7.8 GM/DL (6.4-8.2); TRIGLYCERIDES LEVEL 507 MG/DL (<150)
== END ==
LOC: M LAB REF 16:44
PROVIDERS: ATTEND Family Medicine Addiction Medicine
DX: E78.70 Disorder of bile acid and cholesterol metabolism, unspecified (principal); I10 Essential (primary) hypertension

== ENCOUNTER 2018-11-19 15:21 | Emergency (ER) | payer MEDICARE, MEDICAID ==
[~2018-11-19] VITALS: Ht 172.7 cm; Wt 111.4 kg
[~2018-11-19 15:21] MED LIST changes: -ALBU17IN2 INH; +AMPH1CAP5 PO; -AMPH30CA PO; -BUPR300T34 PO; +BUPR300T92 PO; +HYDR1TAB33 PO; -HYDRO50TAB PO; -OMEP40CA2 PO; +OMEP40CA97 PO; +PROV108A INH; -TRAZ-160 PO; -TRAZ-163 PO; +TRAZ-252 PO; +TRAZ-257 PO; +TRAZ1TAB10 PO; -TRAZO50TA PO
[2018-11-19 15:22] VITALS: BP 139/92
[2018-11-19] MEDS ORDERED: MINO100C80 PO (15:49)
[2018-11-19] MEDS ORDERED: VYVA50CA4 PO (15:49)
[2018-11-19] MEDS ORDERED: SYNT137T7 PO (15:49)
--- NOTE | 2018-11-19 15:51 | REP ---
Clinical: Trauma. Technique: AP, lateral, bilateral oblique views right foot . Findings: The osseous structures and joint spaces are intact and normal. There is no evidence for acute fracture or dislocation. Surrounding soft tissues are unremarkable. No subcutaneous emphysema or radiodense foreign body. Impression: Normal right foot series . No acute fracture or dislocation. Electronically Signed by Alonso Ca MD 11/19/2018 03:43 P
== END 2018-11-19 16:30 | disposition home or self-care (01) ==
LOC: M ED 15:21
DX: S93.601A Unspecified sprain of right foot, initial encounter (principal); X50.9XXA Other and unspecified overexertion or strenuous movements or postures, initial encounter; Y92.018 Other place in single-family (private) house as the place of occurrence of the external cause; I10 Essential (primary) hypertension; K59.03 Drug induced constipation; G62.9 Polyneuropathy, unspecified; E78.00 Pure hypercholesterolemia, unspecified; E03.9 Hypothyroidism, unspecified; F31.9 Bipolar disorder, unspecified; F41.9 Anxiety disorder, unspecified; F90.9 Attention-deficit hyperactivity disorder, unspecified type; Z79.899 Other long term (current) drug therapy; Z79.891 Long term (current) use of opiate analgesic; Z79.890 Hormone replacement therapy

== ENCOUNTER 2019-05-09 11:56 | Emergency (ER) | payer MEDICARE, MEDICAID ==
[~2019-05-09] VITALS: Ht 172.7 cm; Wt 123.2 kg
[~2019-05-09 11:56] MED LIST changes: +BUPR300T34 PO; -BUPR300T92 PO; +MINO100C80 PO; +SYNT137T7 PO; +TRAZ-163 PO; -TRAZ-257 PO; +VYVA50CA4 PO
[2019-05-09 11:57] VITALS: BP 146/91
[2019-05-09] MEDS ORDERED: OLAN5TAB (12:06)
[2019-05-09] MEDS ORDERED: METH54TA5 (12:06)
[2019-05-09] MEDS ORDERED: VIST50CA PO (12:06)
[2019-05-09] MEDS ORDERED: PROP160C PO (13:05)
== END 2019-05-09 13:08 | disposition home or self-care (01) ==
LOC: M ED 11:56
DX: Z76.0 Encounter for issue of repeat prescription (principal); Z79.899 Other long term (current) drug therapy; Z88.8 Allergy status to other drugs, medicaments and biological substances

== ENCOUNTER 2019-09-18 03:40 | Inpatient (IN) | payer MEDICARE, MEDICAID ==
[~2019-09-18] VITALS: Ht 175.3 cm; Wt 121.9 kg
[~2019-09-18 03:40] MED LIST changes: -BUPR300T34 PO; +BUPR300T92 PO; +METH54TA5 PO; +OLAN5TAB PO; +PROP160C PO; +QUET100T2 PO; -QUET1TAB8 PO; -TRAZ-163 PO; +TRAZ-257 PO
[2019-09-18 04:20] LABS: HEMATOCRIT 43.7 % (42.0-52.0); HEMOGLOBIN 15.8 g/dl (13.5-17.5); MEAN CORPUSCULAR HEMOGLOBIN 32.2 pg (27.0-33.0); MEAN CORPUSCULAR HGB CONC 36.2 g/dl (32.0-36.5); MEAN CORPUSCULAR VOLUME 89.2 fl (80.0-96.0); PLATELET COUNT, AUTOMATED 214 10^3/uL (150-450); WHITE BLOOD COUNT 6.9 10^3/uL (4.0-10.0)
[2019-09-18 04:58] LABS: ACETAMINOPHEN LEVEL < 2.0 UG/ML (10.0-30.0); ALBUMIN 4.2 GM/DL (3.2-5.2); ALT/SGPT 99 U/L (12-78); BILIRUBIN,DIRECT 0.2 MG/DL (0.0-0.2); BILIRUBIN,TOTAL 0.8 MG/DL (0.2-1.0); BLOOD UREA NITROGEN 22 MG/DL (7-18); CALCIUM LEVEL 9.1 MG/DL (8.5-10.1); CARBON DIOXIDE LEVEL 21 MEQ/L (21-32); CHLORIDE LEVEL 108 MEQ/L (98-107); CREATININE FOR GFR 0.93 MG/DL (0.70-1.30); ETHYL ALCOHOL (ETHANOL) < 0.003 % (0.000-0.010); GLOMERULAR FILTRATION RATE > 60.0 (>60); GLUCOSE, FASTING 101 MG/DL (70-100); POTASSIUM SERUM 3.8 MEQ/L (3.5-5.1); SODIUM LEVEL 137 MEQ/L (136-145); TOTAL PROTEIN 7.9 GM/DL (6.4-8.2)
[2019-09-18 05:19] LABS: AMPHETAMINES LEVEL URINE POSITIVE (NEGATIVE); BARBITURATES URINE NEGATIVE (NEGATIVE); BENZODIAZEPINES URINE NEGATIVE (NEGATIVE); CANNABINOIDS URINE POSITIVE (NEGATIVE); COCAINE METABOLITE URINE NEGATIVE (NEGATIVE); METHADONE URINE NEGATIVE (NEGATIVE); OPIATES URINE NEGATIVE (NEGATIVE); PHENCYCLIDINE URINE NEGATIVE (NEGATIVE)
[2019-09-18] MEDS ORDERED: LORazepam 0.5 MG TAB PO ONE (05:30)
[2019-09-18] MEDS ORDERED: OLANZapine ORAL DISINTEGRATING TAB 5MG PO PRN (06:15)
[2019-09-18] MEDS ORDERED: ACETAMINOPHEN TAB 650MG DOSE (2X325MG) PO PRN (06:15)
[2019-09-18] MEDS ORDERED: MOM 30ML SUSPENSION UDC PO PRN (06:15)
[2019-09-18] MEDS ORDERED: traZODone 50 MG TAB PO PRN (06:15)
[2019-09-18] MEDS ORDERED: PROP160C PO (06:44)
[2019-09-18] MEDS ORDERED: RITA20TA PO (06:44)
[2019-09-18] MEDS ORDERED: PARO40TA2 PO (06:44)
[2019-09-18] MEDS ORDERED: OLANZapine ORAL DISINTEGRATING TAB 5MG PO ONE (11:00)
[2019-09-18] MEDS: hydrOXYzine 50 MG TAB PO PRN (11:14)
[2019-09-18] MEDS: METHYLPHENIDATE 5 MG TAB PO SCH ×2 (11:15→16:01)
[2019-09-18] MEDS: PARoxetine 20 MG TAB PO SCH (11:15)
[2019-09-18] MEDS: BUPRENORPHINE/NALOXONE 8-2MG SUBLINGUAL TABLET(SUBOXONE) SL SCH (11:15)
[2019-09-18] MEDS: PROPRANOLOL 80 MG LA CAP PO SCH (13:10)
--- NOTE | 2019-09-18 14:22 | HPEPDOC ---
General Date of Admission Sep 18, 2019 at 06:09 Date of Service: Sep 18, 2019 Chief Complaint The patient is a 39-year-old male admitted with a reason for visit of Unspecified Bipolar Disorder. Source: Patient Exam Limitations: No limitations Timing/Duration: Day(s) Severity: Moderate History of Present Illness HISTORY OF PRESENT ILLNESS: Patient is 39 years old male significant past medical history of opioids abuse, hyperlipidemia, chronic constipation, who was admitted in the hospital with depression. Patient stated that he has a chronic constipation secondary to opioid abuse. Also has a chronic acne treated with minocycline. He denies fever, chills, nausea, vomiting, shortness of breath, palpitations, diarrhea or dysuria Home Medications Scheduled Atorvastatin Calcium (Atorvastatin Calcium) 40 Mg Tab, 40 MG PO QHS, (Reported) Buprenorphine HCl/Naloxone HCl (Suboxone 8 mg-2 mg Sl Film) 1 Mis Mis, 1 STRIP SL DAILY, (Reported) Levothyroxine Sodium (Synthroid) 137 Mcg Tablet, 137 MCG PO DAILY, (Reported) Linaclotide (Linzess) 290 Mcg Cap, 290 MCG PO DAILY, (Reported) Methylphenidate HCl (Ritalin) 20 Mg Tablet, 20 MG PO TID, (Reported) 0800, 1200, 1600 Minocycline HCl (Minocycline HCl) 100 Mg Capsule, 100 MG PO DAILY, (Reported) Olanzapine (Olanzapine) 5 Mg Tablet, 5 MG PO QHS, (Reported) Paroxetine HCl (Paroxetine HCl) 40 Mg Tablet, 40 MG PO DAILY, (Reported) Propranolol HCl (Propranolol HCl ER) 160 Mg Cap.sa.24h, 160 MG PO DAILY, (Reported) Scheduled PRN Hydroxyzine Pamoate (Vistaril) 50 Mg Capsule, 100 MG PO BID PRN for ANXIETY/AGIT ATION, (Reported) Allergies Coded Allergies: aripiprazole (Verified Adverse Reaction, Intermediate, dystonia, 11/19/18) haloperidol (Verified Adverse Reaction, Intermediate, dystonia, 11/19/18) risperidone (Verified Adverse Reaction, Intermediate, dystonia, 11/19/18) ziprasidone (Verified Adverse Reaction, Intermediate, dystonia, 11/19/18) Past Medical History Medical History Hypertension, depression, bipolar disorder, hyperlipidemia, chronic constipation, hypothyroidism Family History Both parents has hyperlipidemia and hypertension Social History * Smoker: Denies Alcohol: Denies Drugs: prescription drugs, other A-FIB/CHADSVASC A-FIB History Current/History of A-Fib/PAF?: No Current PO Anticoag Therapy: No Review of Systems Constitutional: Denies: Chills, Fever Eyes: Denies: Pain, Vision change ENT: Denies: Head Aches Skin: Denies: Rash, Lesions Pulmonary: Denies: Dyspnea Cardiovascular: Denies: Chest Pain, Palpitations Gastrointestinal: Reports: Constipation; Denies: Nausea, Vomiting Genitourinary: Denies: Dysuria, Frequency Hematologic: Denies: Bruising Endocrine: Denies: Polydipsia Musculoskeletal: Denies: Neck Pain, Back Pain Neurological: Denies: Weakness Psych: Reports: Depression; Denies: Mood Normal Physical Examination General Exam: Positive: Alert, Cooperative Eye Exam: Positive: PERRLA ENT Exam: Positive: Atraumatic Neck Exam: Positive: Supple; Negative: JVD Chest Exam: Positive: Clear to auscultation Heart Exam: Positive: Rate Normal Telemetry: Positive: No significant arrhythmia Abdomen Exam: Positive: Normal bowel sounds Extremity Exam: Negative: Clubbing Skin Exam: Positive: Nl turgor and temperature Neuro Exam: Positive: Normal Gait Psych Exam: Positive: Oriented x 3 Vital Signs Vital Signs Date Time Temp Pulse Resp B/P (MAP) Pulse Ox O2 Delivery O2 Flow Rate FiO2 09/18/19 13:10 62 127/72 09/18/19 12:02 18 09/18/19 09:53 96.9 99 Room Air Laboratory Data Labs 24H Laboratory Tests 2 09/18/19 03:46: Urine Opiates Screen NEGATIVE, Urine Methadone Screen NEGATIVE, Urine Barbit urates Screen NEGATIVE, Urine Phencyclidine Screen NEGATIVE, Urine Amphetamines Screen POSITIVEH, Urine Benzodiazepines Screen NEGATIVE, Urine Cocaine Metabolite Screen NEGATIVE, Urine Cannabinoids Screen POSITIVEH 09/18/19 04:10: Nucleated Red Blood Cells % (auto) 0.0, Anion Gap 8, Glomerular Filtration Rate > 60.0, Calcium Level 9.1, Total Bilirubin 0.8, Direct Bilirubin 0.2, Aspartate Amino Transf (AST/SGOT) 56H, Alanine Aminotransferase (ALT/SGPT) 99H, Alkaline Phosphatase 90, Total Protein 7.9, Albumin 4.2, Albumin/Globulin Ratio 1.14, Thyroid Stimulating Hormone (TSH) 2.760, Salicylates Level 2.0L, Acetaminophen Level < 2.0L, Ethyl Alcohol Level < 0.003 CBC/BMP Laboratory Tests 09/18/19 04:10 Assessment/Plan Patient is 39 years old male significant past medical history of opioids abuse, hyperlipidemia, chronic constipation, who was admitted in the hospital with depression. Patient stated that he has a chronic constipation secondary to opioid abuse. Also has a chronic acne treated with minocycline. He denies fever, chills, nausea, vomiting, shortness of breath, palpitations, diarrhea or dysuria Problems (1) Constipation Status: Chronic Problem Text: Secondary to opioids MiraLAX when necessary (2) HTN (hypertension) Status: Chronic Problem Text: Blood pressure currently is under control (3) HLD (hyperlipidemia) Status: Chronic Problem Text: Continue statin (4) Depression with suicidal ideation Status: Acute Problem Text: Treatment per psych team (5) Hypothyroidism Status: Chronic Problem Text: Continue levothyroxine Plan / VTE VTE Prophylaxis Ordered?: No VTE Exclusion Mechanical Proph: Low Risk for VTE ZION ARAIZA DO Sep 18, 2019 14:22
[2019-09-18 16:19] VITALS: BP 122/76
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
[2019-09-18] MEDS: ATORVASTATIN 20 MG TAB PO SCH (20:50)
[2019-09-18] MEDS: OLANZapine 5 MG TAB PO SCH (20:50)
[2019-09-19 06:06] VITALS: BP 105/57
[2019-09-19] MEDS: LEVOTHYROXINE 137MCG TABLET (0.137MG) PO SCH (06:12)
[2019-09-19] MEDS: METHYLPHENIDATE 5 MG TAB PO SCH ×3 (08:05→16:18)
[2019-09-19] MEDS: PROPRANOLOL 80 MG LA CAP PO SCH (08:06)
[2019-09-19] MEDS: BUPRENORPHINE/NALOXONE 8-2MG SUBLINGUAL TABLET(SUBOXONE) SL SCH ×2 (08:06→16:19)
[2019-09-19] MEDS: PARoxetine 20 MG TAB PO SCH (08:06)
[2019-09-19 16:22] VITALS: BP_SYST 129; BP_SYST 131; BP_DIAS 76; BP_DIAS 88
[2019-09-19] MEDS: ATORVASTATIN 20 MG TAB PO SCH (20:03)
[2019-09-19] MEDS: QUEtiapine FUMARATE 25 MG TAB PO SCH (20:03)
[2019-09-19] MEDS: OLANZapine 5 MG TAB PO SCH (20:03)
--- NOTE | 2019-09-19 21:35 | MHIPNPDOC ---
[facility] Progress Note Progress Note DATE OF SERVICE: 09/19/19 HISTORY: The patient reports he feels better at [facility], he feels safe compared to his apartment where he feels unsafe. He feels angry, irritable, he says but he is cooperative, more pleasant than in the past. He is still worried about his parents qho live in [facility], he says he woke up last night ad he feels Trazodone is working. He says she would agree to use Seroquel because he has not had bad reactions to it in the past. His appetite is OK. He says he has SI, "I just want to kill myself", but he says he doesn't "necessarily agree with my thoughts". He says he doesn't want to kill himself but the thoughts about ending his life are there in his mind. VITAL SIGNS: See below. NEW TEST RESULTS: See below CURRENT MEDICATIONS: See below. MENTAL STATUS EXAMINATION: General Appearance: Good hygiene, dressed in hospital clothes, appears stated age Build: overweight Demeanor: Pleasant today, cooperative Eye Contact: Good Activity: Mildly anxious Behavior: cooperative Speech: clear, spontaneous, fluent, normal r/t/v Mood " I'm angry" Affect: Congruent with mood Thought Process: logical/linear Thought Content (Delusions): Denies paranoid thoughts at this time, he denies other thought delusions Thought Content (Other): He denies HI, he reports passive SI Thought Content (Aggressive): none reported Perception (Hallucinations): none reported Perception (Other): none reported Cognition (Impairment of): none reported Cognition(Intelligence Est.): average Oriented: Awake Insight: limited Judgment: limited Diagnoses 1. R/O Bipolar disorder 2. PTSD by history 3. R/O Borderline personality disorder 4. Opioid Use disorder (in reemission) Assessment Patient is more stable than on previous admissions, however I think that the main problem for this man his housing. He is not in immediate danger to himself or others although he exhibits some paranoia and continues to report suicidal ideation without a plan or intent. He has a poor response to current medications MANAGEMENT PLAN: Will continue current treatment plan TIME SPENT: 20 minutes. Vital Signs Vital Signs Date Time Temp Pulse Resp B/P (MAP) Pulse Ox O2 Delivery O2 Flow Rate FiO2 09/19/19 08:06 69 133/81 09/19/19 06:06 98.4 16 96 Room Air Current Medications Current Medications Medications (Trade) Dose Ordered Sig/Santiago Route PRN Reason Start Time Stop Time Status Last Admin Dose Admin Acetaminophen (Tylenol Tab) 650 mg Q6HP PRN PO HEADACHE or DISCOMFORT 09/18/19 06:15 Al Hydrox/Mg Hydrox/Simethicone (Mylanta) 30 ml Q4HP PRN PO HEARTBURN/INDIGESTION 09/18/19 06:15 Atorvastatin Calcium (Lipitor) 40 mg QHS PO 09/18/19 21:00 09/18/19 20:50 Buprenorphine/ Naloxone (Suboxone 8/2mg) 1 tab BID@0900,1600 SL 09/19/19 16:00 Buprenorphine/ Naloxone (Suboxone 8/2mg) 1 tab DAILY SL 09/18/19 09:00 09/19/19 09:48 DC 09/19/19 08:06 Home Med (Med Rec Complete!) ASDIRECTED XX 09/18/19 06:45 09/18/19 06:48 DC Hydroxyzine HCl (Atarax) 100 mg BID PRN PO ANXIETY/AGITATION 09/18/19 10:45 09/18/19 11:14 Levothyroxine Sodium (Synthroid) 137 mcg DAILY@0600 PO 09/19/19 06:00 09/19/19 06:12 Magnesium Hydroxide (Milk Of Magnesia) 30 ml DAILYPRN PRN PO CONSTIPATION 09/18/19 06:15 Methylphenidate HCl (Ritalin) 20 mg TID@0800,1200,1600 PO 09/18/19 12:00 09/19/19 08:05 Olanzapine (ZyPREXA ZYDIS) 5 mg Q6HP PRN PO AGITATION 09/18/19 06:15 09/18/19 10:30 Olanzapine (ZyPREXA) 5 mg QHS PO 09/18/19 21:00 09/18/19 20:50 Paroxetine HCl (PAXil) 40 mg DAILY PO 09/18/19 09:00 09/19/19 08:06 Polyethylene Glycol (Miralax) 1 pkt DAILYPRN PRN PO CONSTIPATION 09/18/19 14:30 Propranolol HCl (Inderal La) 160 mg DAILY PO 09/18/19 09:00 09/19/19 08:06 Trazodone HCl (Desyrel) 50 mg QHSP PRN PO INSOMNIA 09/18/19 06:15 09/18/19 20:50 Allergies Coded Allergies: aripiprazole (Verified Adverse Reaction, Intermediate, dystonia, 11/19/18) haloperidol (Verified Adverse Reaction, Intermediate, dystonia, 11/19/18) risperidone (Verified Adverse Reaction, Intermediate, dystonia, 11/19/18) ziprasidone (Verified Adverse Reaction, Intermediate, dystonia, 11/19/18) NIVIA CARDENAS MD Sep 19, 2019 10:32
[2019-09-20] MEDS: LEVOTHYROXINE 137MCG TABLET (0.137MG) PO SCH (05:58)
[2019-09-20 06:19] VITALS: BP 135/74
[2019-09-20] MEDS: PARoxetine 20 MG TAB PO SCH (08:14)
[2019-09-20] MEDS: BUPRENORPHINE/NALOXONE 8-2MG SUBLINGUAL TABLET(SUBOXONE) SL SCH ×2 (08:14→16:19)
[2019-09-20] MEDS: METHYLPHENIDATE 5 MG TAB PO SCH ×3 (08:14→16:20)
[2019-09-20] MEDS: PROPRANOLOL 80 MG LA CAP PO SCH (08:14)
--- NOTE | 2019-09-20 09:11 | MHIPNPDOC ---
[facility] Progress Note Progress Note DATE OF SERVICE: 09/20/19 HISTORY: . VITAL SIGNS: See below. NEW TEST RESULTS: . CURRENT MEDICATIONS: See below. MENTAL STATUS EXAMINATION: Patient is a -year old male, who is . Speech: Is . Language skills are . Thought processes including: . Thought content: . Abstract reasoning, and computation: . Description of associ ations: . Description of abnormal or psychotic thoughts: . Judgment: . Insight: [very limited, good, fair. poor]. Orientation: . Recent and remote memory: . Attention span and concentration: . Language: . Fund of knowledge: . Mood: . Affect: . DIAGNOSES: 1. . 2. . 3. . ASSESSMENT: MANAGEMENT PLAN: . TIME SPENT: minutes. Vital Signs Vital Signs Date Time Temp Pulse Resp B/P (MAP) Pulse Ox O2 Delivery O2 Flow Rate FiO2 09/20/19 08:14 65 135/74 09/20/19 06:19 98.6 18 95 Room Air Current Medications Current Medications Medications (Trade) Dose Ordered Sig/Santiago Route PRN Reason Start Time Stop Time Status Last Admin Dose Admin Acetaminophen (Tylenol Tab) 650 mg Q6HP PRN PO HEADACHE or DISCOMFORT 09/18/19 06:15 Al Hydrox/Mg Hydrox/Simethicone (Mylanta) 30 ml Q4HP PRN PO HEARTBURN/INDIGESTION 09/18/19 06:15 Atorvastatin Calcium (Lipitor) 40 mg QHS PO 09/18/19 21:00 09/19/19 20:03 Buprenorphine/ Naloxone (Suboxone 8/2mg) 1 tab BID@0900,1600 SL 09/19/19 16:00 09/20/19 08:14 Buprenorphine/ Naloxone (Suboxone 8/2mg) 1 tab DAILY SL 09/18/19 09:00 09/19/19 09:48 DC 09/19/19 08:06 Home Med (Med Rec Complete!) ASDIRECTED XX 09/18/19 06:45 09/18/19 06:48 DC Hydroxyzine HCl (Atarax) 100 mg BID PRN PO ANXIETY/AGITATION 09/18/19 10:45 09/18/19 11:14 Levothyroxine Sodium (Synthroid) 137 mcg DAILY@0600 PO 09/19/19 06:00 09/20/19 05:58 Magnesium Hydroxide (Milk Of Magnesia) 30 ml DAILYPRN PRN PO CONSTIPATION 09/18/19 06:15 Methylphenidate HCl (Ritalin) 20 mg TID@0800,1200,1600 PO 09/18/19 12:00 09/20/19 08:14 Nicotine (Nicoderm Cq 21mg) 1 patch DAILY TD 09/20/19 09:00 Olanzapine (ZyPREXA ZYDIS) 5 mg Q6HP PRN PO AGITATION 09/18/19 06:15 09/18/19 10:30 Olanzapine (ZyPREXA) 5 mg QHS PO 09/18/19 21:00 09/19/19 20:03 Paroxetine HCl (PAXil) 40 mg DAILY PO 09/18/19 09:00 09/20/19 08:14 Polyethylene Glycol (Miralax) 1 pkt DAILYPRN PRN PO CONSTIPATION 09/18/19 14:30 Propranolol HCl (Inderal La) 160 mg DAILY PO 09/18/19 09:00 09/20/19 08:14 Quetiapine Fumarate (SEROquel) 75 mg QHS PO 09/19/19 21:00 09/19/19 20:03 Trazodone HCl (Desyrel) 50 mg QHSP PRN PO INSOMNIA 09/18/19 06:15 09/19/19 10:22 DC 09/18/19 20:50 Allergies Coded Allergies: aripiprazole (Verified Adverse Reaction, Intermediate, dystonia, 11/19/18) haloperidol (Verified Adverse Reaction, Intermediate, dystonia, 11/19/18) risperidone (Verified Adverse Reaction, Intermediate, dystonia, 11/19/18) ziprasidone (Verified Adverse Reaction, Intermediate, dystonia, 11/19/18) NATI ABREU DO Sep 20, 2019 09:11
--- NOTE | 2019-09-20 09:57 | MHDSPDOC ---
[facility] Discharge Summary Discharge Summary DATE OF ADMISSION: Sep 18, 2019 at 06:09 DATE OF DISCHARGE: DISCHARGE DIAGNOSES: 1. . 2. . REASON FOR ADMISSION: CONSULTANTS INVOLVED: TREATMENT AND PROGRESS ON THE UNIT : . HOSPITAL COURSE: DISCHARGE ASSESSMENT: MENTAL STATUS EXAMINATION ON DISCHARGE: Patient is a -year old male, who is . Speech is . Language skills are . Thought processes including: . Thought content: . Abstract reasoning, and computation: . Description of associations: . Description of abnormal or psychotic thoughts: . Judgment: . Insight: . Orientation to . Recent and remote memory: . Attention span and concentration: . Language: . Fund of knowledge: . Mood: . Affect: . MEDICATIONS ON DISCHARGE: - for . - for . - for . PLAN/FOLLOWUP ARRANGEMENTS: . The amount of time spent in the coordination of care for this patient was approximately minutes. Vital Signs/I&Os Vital Signs Date Time Temp Pulse Resp B/P (MAP) Pulse Ox O2 Delivery O2 Flow Rate FiO2 09/20/19 08:14 65 135/74 09/20/19 06:19 98.6 18 95 Room Air Medications Scheduled Atorvastatin Calcium (Atorvastatin Calcium) 40 Mg Tab, 40 MG PO QHS, (Reported) Buprenorphine HCl/Naloxone HCl (Suboxone 8 mg-2 mg Sl Film) 1 Mis Mis, 1 STRIP SL DAILY for 30 Days, #30 (Reported) Levothyroxine Sodium (Synthroid) 137 Mcg Tablet, 137 MCG PO DAILY, (Reported) Linaclotide (Linzess) 290 Mcg Cap, 290 MCG PO DAILY, (Reported) Methylphenidate HCl (Ritalin) 20 Mg Tablet, 20 MG PO TID, (Reported) 0800, 1200, 1600 Minocycline HCl (Minocycline HCl) 100 Mg Capsule, 100 MG PO DAILY, (Reported) Olanzapine (Olanzapine) 5 Mg Tablet, 5 MG PO QHS, (Reported) Paroxetine HCl (Paroxetine HCl) 40 Mg Tablet, 40 MG PO DAILY, (Reported) Propranolol HCl (Propranolol HCl ER) 160 Mg Cap.sa.24h, 160 MG PO DAILY, (Reported) Scheduled PRN Hydroxyzine Pamoate (Vistaril) 50 Mg Capsule, 100 MG PO BID PRN for ANXIETY/AGITATION, (Reported) Allergies Coded Allergies: aripiprazole (Verified Adverse Reaction, Intermediate, dystonia, 11/19/18) haloperidol (Verified Adverse Reaction, Intermediate, dystonia, 11/19/18) risperidone (Verified Adverse Reaction, Intermediate, dystonia, 11/19/18) ziprasidone (Verified Adverse Reaction, Intermediate, dystonia, 11/19/18) NATI ABREU DO Sep 20, 2019 09:57
[2019-09-20] MEDS: NICOTINE 21MG/24HR 1 EA TRANSDERMAL TD SCH (10:01)
--- NOTE | 2019-09-20 10:07 | MHIPNPDOC ---
[facility] Progress Note Progress Note Inpatient Progress Note Dion Mckinnon MRN: N/A Date of : N/A Date of Service: 09/20/2019 History of Present Illness The patient is well known 39-year-old man presents with suicidal thoughts and angry thoughts and paranoia towards his neighbors. He has a previous history of multiple different admissions and a history of bipolar disorder presents and is resumed on home medications. Reports that his current living situation is his primary reason for presentation as he does not like his neighbors. Interval History The patient is met with today. He reports he is tolerating his medications well and that his symptoms of depression anxiety and paranoia have resolved. He reports his angry towards his neighbors and wishes to stay here longer in order to try to create a more solid discharge planning including trying to figure out a new apartment. He reports he has means to try to get a new apartment and does not want to return to his previous one, reporting that they are use of drugs and loud noises are generally disturbing him. Review Of Systems General: Denies fever or appetite changes Cardiovascular: Denies Chest pain or palpations GI: Denies Nausea, vomiting, or bowel changes Respiratory: Denies shortness of breath or cough Neuro: Denies dizziness, tremors Derm: Denies any rashes or pruritus : Denies any dysuria or urinary problems MSK: Denies any muscle tightness or stiffness HEENT: Denies any vision changes or headaches Psychotherapy None on this visit. Vital Signs Reviewed. Mental Status Examination General: Well dressed with good hygiene Speech: Spontaneous and fluid Thought processes: Linear and logical MSK: Smooth and coordinated gait, no signs of tremors or involuntary orofacial movements Thought content: Future orientated Abstract reasoning, and computation: Intact Description of associations: Intact Description of abnormal or psychotic thoughts: Denies any suicidal or homicidal ideation. Denies any auditory or visual hallucinations. Does not appear to be responding to internal stimuli. Does not appear to be endorsing any bizarre or paranoid ideation. Judgment: fair Insight: fair Orientation: Alert and orientated 3 Cognition: Grossly normal Recent and remote memory: Intact Attention span and concentration: Intact Fund of knowledge: Adequate Mood: "okay" Affect: Euthymic with a full range Diagnoses Unspecified bipolar disorder. Opioid use disorder, in remission. Tobacco use disorder, in remission. Assessment and Plan Unspecified bipolar disorder: Continue home medications. Opioid use disorder: Continue home Suboxone. Tobacco use disorder: Continue nicotine offering. Disposition Patient will be retained further on a voluntary, patient will search for new housing in order to reduce the chances of readmission. Time Spent 15 minutes. Friday Vital Signs Vital Signs Date Time Temp Pulse Resp B/P (MAP) Pulse Ox O2 Delivery O2 Flow Rate FiO2 09/20/19 08:14 65 135/74 09/20/19 06:19 98.6 18 95 Room Air Current Medications Current Medications Medications (Trade) Dose Ordered Sig/Santiago Route PRN Reason Start Time Stop Time Status Last Admin Dose Admin Acetaminophen (Tylenol Tab) 650 mg Q6HP PRN PO HEADACHE or DISCOMFORT 09/18/19 06:15 Al Hydrox/Mg Hydrox/Simethicone (Mylanta) 30 ml Q4HP PRN PO HEARTBURN/INDIGESTION 09/18/19 06:15 Atorvastatin Calcium (Lipitor) 40 mg QHS PO 09/18/19 21:00 09/19/19 20:03 Buprenorphine/ Naloxone (Suboxone 8/2mg) 1 tab BID@0900,1600 SL 09/19/19 16:00 09/20/19 08:14 Buprenorphine/ Naloxone (Suboxone 8/2mg) 1 tab DAILY SL 09/18/19 09:00 09/19/19 09:48 DC 09/19/19 08:06 Home Med (Med Rec Complete!) ASDIRECTED XX 09/18/19 06:45 09/18/19 06:48 DC Hydroxyzine HCl (Atarax) 100 mg BID PRN PO ANXIETY/AGITATION 09/18/19 10:45 09/18/19 11:14 Levothyroxine Sodium (Synthroid) 137 mcg DAILY@0600 PO 09/19/19 06:00 09/20/19 05:58 Magnesium Hydroxide (Milk Of Magnesia) 30 ml DAILYPRN PRN PO CONSTIPATION 09/18/19 06:15 Methylphenidate HCl (Ritalin) 20 mg TID@0800,1200,1600 PO 09/18/19 12:00 09/20/19 08:14 Nicotine (Nicoderm Cq 21mg) 1 patch DAILY TD 09/20/19 09:00 09/20/19 10:01 Olanzapine (ZyPREXA ZYDIS) 5 mg Q6HP PRN PO AGITATION 09/18/19 06:15 09/18/19 10:30 Olanzapine (ZyPREXA) 5 mg QHS PO 09/18/19 21:00 09/19/19 20:03 Paroxetine HCl (PAXil) 40 mg DAILY PO 09/18/19 09:00 09/20/19 08:14 Polyethylene Glycol (Miralax) 1 pkt DAILYPRN PRN PO CONSTIPATION 09/18/19 14:30 Propranolol HCl (Inderal La) 160 mg DAILY PO 09/18/19 09:00 09/20/19 08:14 Quetiapine Fumarate (SEROquel) 75 mg QHS PO 09/19/19 21:00 09/19/19 20:03 Trazodone HCl (Desyrel) 50 mg QHSP PRN PO INSOMNIA 09/18/19 06:15 09/19/19 10:22 DC 09/18/19 20:50 Allergies Coded Allergies: aripiprazole (Verified Adverse Reaction, Intermediate, dystonia, 11/19/18) haloperidol (Verified Adverse Reaction, Intermediate, dystonia, 11/19/18) risperidone (Verified Adverse Reaction, Intermediate, dystonia, 11/19/18) ziprasidone (Verified Adverse Reaction, Intermediate, dystonia, 11/19/18) NATI ABREU DO Sep 20, 2019 10:07
[2019-09-20 16:03] VITALS: BP 138/88
[2019-09-20] MEDS: MIRALAX *UNIT DOSE* 17GM PACKET PO PRN (18:00)
[2019-09-20] MEDS: QUEtiapine FUMARATE 25 MG TAB PO SCH (20:17)
[2019-09-20] MEDS: OLANZapine 5 MG TAB PO SCH (20:18)
[2019-09-20] MEDS: ATORVASTATIN 20 MG TAB PO SCH (20:19)
[2019-09-20] MEDS: hydrOXYzine 50 MG TAB PO PRN (20:19)
[2019-09-21 06:01] VITALS: BP 134/88
[2019-09-21] MEDS: LEVOTHYROXINE 137MCG TABLET (0.137MG) PO SCH (06:08)
[2019-09-21] MEDS: MAALOX 30 ML SUSP *UDC PO PRN (06:57)
[2019-09-21] MEDS: METHYLPHENIDATE 5 MG TAB PO SCH ×3 (08:15→16:09)
[2019-09-21] MEDS: PROPRANOLOL 80 MG LA CAP PO SCH (08:15)
[2019-09-21] MEDS: PARoxetine 20 MG TAB PO SCH (08:16)
[2019-09-21] MEDS: NICOTINE 21MG/24HR 1 EA TRANSDERMAL TD SCH (08:16)
[2019-09-21] MEDS: BUPRENORPHINE/NALOXONE 8-2MG SUBLINGUAL TABLET(SUBOXONE) SL SCH ×2 (10:12→16:09)
--- NOTE | 2019-09-21 10:21 | MHIPNPDOC ---
[facility] Progress Note Progress Note Inpatient Progress Note Dion Mckinnon MRN: N/A Date of : N/A Date of Service: 09/21/2019 History of Present Illness The patient is well known 39-year-old man presents with suicidal thoughts and angry thoughts and paranoia towards his neighbors. He has a previous history of multiple different admissions and a history of bipolar disorder presents and is resumed on home medications. Reports that his current living situation is his primary reason for presentation as he does not like his neighbors. Interval History The patient is met with today. He reports he is doing better. He asks about medication changes, however, is not interested in having his methylphenidate change. He continues to report that the main problem is his housing issue that makes him suicidal and anxious as he does not want to be near his previous neighbors. He is doing well without any behavioral problems, denying any suicidal or homicidal ideation, attending groups with no major issues. Review Of Systems General: Denies fever or appetite changes Cardiovascular: Denies Chest pain or palpations GI: Denies Nausea, vomiting, or bowel changes Respiratory: Denies shortness of breath or cough Neuro: Denies dizziness, tremors Derm: Denies any rashes or pruritus : Denies any dysuria or urinary problems MSK: Denies any muscle tightness or stiffness HEENT: Denies any vision changes or headaches Psychotherapy None on this visit. Vital Signs Reviewed. Mental Status Examination General: Well dressed with good hygiene Speech: Spontaneous and fluid Thought processes: Linear and logical MSK: Smooth and coordinated gait, no signs of tremors or involuntary orofacial movements Thought content: Future orientated Abstract reasoning, and computation: Intact Description of associations: Intact Description of abnormal or psychotic thoughts: Denies any suicidal or homicidal ideation. Denies any auditory or visual hallucinations. Does not appear to be responding to internal stimuli. Does not appear to be endorsing any bizarre or paranoid ideation. Judgment: chronically limited Insight: chronically limited Orientation: Alert and orientated 3 Cognition: Grossly normal Recent and remote memory: Intact Attention span and concentration: Intact Fund of knowledge: Adequate Mood: "okay" Affect: Euthymic with a full range Diagnoses Unspecified bipolar disorder. Opioid use disorder, in remission. Tobacco use disorder, in remission. Unspecified cluster B personality. Assessment and Plan Unspecified bipolar disorder: Continue home medications. Opioid use disorder: Continue home Suboxone. Tobacco use disorder: Continue nicotine offering. Disposition Patient will come up with discharge plan, discharge anticipated this week once stable. Plan: Patient will ask friends and family if he can stay with them while he awaits to try to find a new apartment, as he notes that his stressors are triggered by his neighbors. Time Spent 15 minutes. Friday Vital Signs Vital Signs Date Time Temp Pulse Resp B/P (MAP) Pulse Ox O2 Delivery O2 Flow Rate FiO2 09/21/19 08:15 56 124/77 09/21/19 06:01 97.4 16 09/20/19 06:19 95 Room Air Current Medications Current Medications Medications (Trade) Dose Ordered Sig/Santiago Route PRN Reason Start Time Stop Time Status Last Admin Dose Admin Acetaminophen (Tylenol Tab) 650 mg Q6HP PRN PO HEADACHE or DISCOMFORT 09/18/19 06:15 Al Hydrox/Mg Hydrox/Simethicone (Mylanta) 30 ml Q4HP PRN PO HEARTBURN/INDIGESTION 09/18/19 06:15 09/21/19 06:57 Atorvastatin Calcium (Lipitor) 40 mg QHS PO 09/18/19 21:00 09/20/19 20:19 Buprenorphine/ Naloxone (Suboxone 8/2mg) 1 tab BID@0900,1600 SL 09/19/19 16:00 09/21/19 10:12 Buprenorphine/ Naloxone (Suboxone 8/2mg) 1 tab DAILY SL 09/18/19 09:00 09/19/19 09:48 DC 09/19/19 08:06 Home Med (Med Rec Complete!) ASDIRECTED XX 09/18/19 06:45 09/18/19 06:48 DC Hydroxyzine HCl (Atarax) 100 mg BID PRN PO ANXIETY/AGITATION 09/18/19 10:45 09/20/19 20:19 Levothyroxine Sodium (Synthroid) 137 mcg DAILY@0600 PO 09/19/19 06:00 09/21/19 06:08 Magnesium Hydroxide (Milk Of Magnesia) 30 ml DAILYPRN PRN PO CONSTIPATION 09/18/19 06:15 Methylphenidate HCl (Ritalin) 20 mg TID@0800,1200,1600 PO 09/18/19 12:00 09/21/19 08:15 Nicotine (Nicoderm Cq 21mg) 1 patch DAILY TD 09/20/19 09:00 09/21/19 08:16 Olanzapine (ZyPREXA ZYDIS) 5 mg Q6HP PRN PO AGITATION 09/18/19 06:15 09/18/19 10:30 Olanzapine (ZyPREXA) 5 mg QHS PO 09/18/19 21:00 09/20/19 20:18 Paroxetine HCl (PAXil) 40 mg DAILY PO 09/18/19 09:00 09/21/19 08:16 Polyethylene Glycol (Miralax) 1 pkt DAILYPRN PRN PO CONSTIPATION 09/18/19 14:30 09/20/19 18:00 Propranolol HCl (Inderal La) 160 mg DAILY PO 09/18/19 09:00 09/21/19 08:15 Quetiapine Fumarate (SEROquel) 75 mg QHS PO 09/19/19 21:00 09/20/19 20:17 Trazodone HCl (Desyrel) 50 mg QHSP PRN PO INSOMNIA 09/18/19 06:15 09/19/19 10:22 DC 09/18/19 20:50 Allergies Coded Allergies: aripiprazole (Verified Adverse Reaction, Intermediate, dystonia, 11/19/18) haloperidol (Verified Adverse Reaction, Intermediate, dystonia, 11/19/18) risperidone (Verified Adverse Reaction, Intermediate, dystonia, 11/19/18) ziprasidone (Verified Adverse Reaction, Intermediate, dystonia, 11/19/18) NATI ABREU DO Sep 21, 2019 10:21
[2019-09-21] MEDS ORDERED: SENOKOT S TAB PO PRN (10:30)
[2019-09-21 17:15] VITALS: BP 130/84
[2019-09-21] MEDS: QUEtiapine FUMARATE 25 MG TAB PO SCH (20:35)
[2019-09-21] MEDS: OLANZapine 5 MG TAB PO SCH (20:35)
[2019-09-21] MEDS: hydrOXYzine 50 MG TAB PO PRN (20:35)
[2019-09-21] MEDS: ATORVASTATIN 20 MG TAB PO SCH (20:35)
[2019-09-22] MEDS: MAALOX 30 ML SUSP *UDC PO PRN (01:53)
[2019-09-22 06:06] VITALS: BP 133/66
[2019-09-22] MEDS: LEVOTHYROXINE 137MCG TABLET (0.137MG) PO SCH (06:10)
[2019-09-22] MEDS: METHYLPHENIDATE 5 MG TAB PO SCH ×3 (07:03→15:57)
[2019-09-22] MEDS: PROPRANOLOL 80 MG LA CAP PO SCH (08:02)
[2019-09-22] MEDS: NICOTINE 21MG/24HR 1 EA TRANSDERMAL TD SCH (08:03)
[2019-09-22] MEDS: PARoxetine 20 MG TAB PO SCH (08:03)
[2019-09-22] MEDS: BUPRENORPHINE/NALOXONE 8-2MG SUBLINGUAL TABLET(SUBOXONE) SL SCH ×2 (09:31→15:58)
--- NOTE | 2019-09-22 09:55 | MHIPNPDOC ---
[facility] Progress Note Progress Note Inpatient Progress Note Dion Mckinnon MRN: N/A Date of : N/A Date of Service: 09/22/2019 History of Present Illness The patient is well known 39-year-old man presents with suicidal thoughts and angry thoughts and paranoia towards his neighbors. He has a previous history of multiple different admissions and a history of bipolar disorder presents and is resumed on home medications. Reports that his current living situation is his primary reason for presentation as he does not like his neighbors. Interval History The patient is met with today. He reports he is doing much better, as he found out his neighbors will be evicted. He reports he is doing well and his depression, anxiety and other problems have resolved. He is interested in being discharged tomorrow. He has no complaints and has been generally amenable to treatment without behavioral problems overnight. Review Of Systems General: Denies fever or appetite changes Cardiovascular: Denies Chest pain or palpations GI: Denies Nausea, vomiting, or bowel changes Respiratory: Denies shortness of breath or cough Neuro: Denies dizziness, tremors Derm: Denies any rashes or pruritus : Denies any dysuria or urinary problems MSK: Denies any muscle tightness or stiffness HEENT: Denies any vision changes or headaches Psychotherapy None on this visit. Vital Signs Reviewed. Mental Status Examination General: Well dressed with good hygiene Speech: Spontaneous and fluid Thought processes: Linear and logical MSK: Smooth and coordinated gait, no signs of tremors or involuntary orofacial movements Thought content: Future orientated Abstract reasoning, and computation: Intact Description of associations: Intact Description of abnormal or psychotic thoughts: Denies any suicidal or homicidal ideation. Denies any auditory or visual hallucinations. Does not appear to be r esponding to internal stimuli. Does not appear to be endorsing any bizarre or paranoid ideation. Judgment: chronically limited Insight: chronically limited Orientation: Alert and orientated 3 Cognition: Grossly normal Recent and remote memory: Intact Attention span and concentration: Intact Fund of knowledge: Adequate Mood: "okay" Affect: Euthymic with a full range Diagnoses Unspecified bipolar disorder. Opioid use disorder, in remission. Tobacco use disorder, in remission. Unspecified cluster B personality. Assessment and Plan Unspecified bipolar disorder: Continue home medications. Opioid use disorder: Continue home Suboxone. Tobacco use disorder: Continue nicotine offering. Disposition Discharge tomorrow. Time Spent 15 minutes. Friday Vital Signs Vital Signs Date Time Temp Pulse Resp B/P (MAP) Pulse Ox O2 Delivery O2 Flow Rate FiO2 09/22/19 08:02 58 130/77 09/22/19 06:06 97.1 18 09/20/19 06:19 95 Room Air Current Medications Current Medications Medications (Trade) Dose Ordered Sig/Santiago Route PRN Reason Start Time Stop Time Status Last Admin Dose Admin Acetaminophen (Tylenol Tab) 650 mg Q6HP PRN PO HEADACHE or DISCOMFORT 09/18/19 06:15 Al Hydrox/Mg Hydrox/Simethicone (Mylanta) 30 ml Q4HP PRN PO HEARTBURN/INDIGESTION 09/18/19 06:15 09/22/19 01:53 Atorvastatin Calcium (Lipitor) 40 mg QHS PO 09/18/19 21:00 09/21/19 20:35 Buprenorphine/ Naloxone (Suboxone 8/2mg) 1 tab BID@0900,1600 SL 09/19/19 16:00 09/22/19 09:31 Buprenorphine/ Naloxone (Suboxone 8/2mg) 1 tab DAILY SL 09/18/19 09:00 09/19/19 09:48 DC 09/19/19 08:06 Home Med (Med Rec Complete!) ASDIRECTED XX 09/18/19 06:45 09/18/19 06:48 DC Hydroxyzine HCl (Atarax) 100 mg BID PRN PO ANXIETY/AGITATION 09/18/19 10:45 09/21/19 20:35 Levothyroxine Sodium (Synthroid) 137 mcg DAILY@0600 PO 09/19/19 06:00 09/22/19 06:10 Magnesium Hydroxide (Milk Of Magnesia) 30 ml DAILYPRN PRN PO CONSTIPATION 09/18/19 06:15 Methylphenidate HCl (Ritalin) 20 mg TID@0800,1200,1600 PO 09/18/19 12:00 09/22/19 07:03 Nicotine (Nicoderm Cq 21mg) 1 patch DAILY TD 09/20/19 09:00 09/22/19 08:03 Olanzapine (ZyPREXA ZYDIS) 5 mg Q6HP PRN PO AGITATION 09/18/19 06:15 09/18/19 10:30 Olanzapine (ZyPREXA) 5 mg QHS PO 09/18/19 21:00 09/21/19 20:35 Paroxetine HCl (PAXil) 40 mg DAILY PO 09/18/19 09:00 09/22/19 08:03 Polyethylene Glycol (Miralax) 1 pkt DAILYPRN PRN PO CONSTIPATION 09/18/19 14:30 09/20/19 18:00 Propranolol HCl (Inderal La) 160 mg DAILY PO 09/18/19 09:00 09/22/19 08:02 Quetiapine Fumarate (SEROquel) 75 mg QHS PO 09/19/19 21:00 09/21/19 20:35 Senna/Docusate Sodium (Senokot S) 1 tab BIDP PRN PO CONSTIPATION 09/21/19 10:30 Trazodone HCl (Desyrel) 50 mg QHSP PRN PO INSOMNIA 09/18/19 06:15 09/19/19 10:22 DC 09/18/19 20:50 Allergies Coded Allergies: aripiprazole (Verified Adverse Reaction, Intermediate, dystonia, 11/19/18) haloperidol (Verified Adverse Reaction, Intermediate, dystonia, 11/19/18) risperidone (Verified Adverse Reaction, Intermediate, dystonia, 11/19/18) ziprasidone (Verified Adverse Reaction, Intermediate, dystonia, 11/19/18) NATI ABREU DO Sep 22, 2019 09:55
[2019-09-22] MEDS: MIRALAX *UNIT DOSE* 17GM PACKET PO PRN (13:15)
[2019-09-22 16:16] VITALS: BP 117/68
[2019-09-22] MEDS: OLANZapine 5 MG TAB PO SCH (20:07)
[2019-09-22] MEDS: hydrOXYzine 50 MG TAB PO PRN (20:07)
[2019-09-22] MEDS: QUEtiapine FUMARATE 25 MG TAB PO SCH (20:07)
[2019-09-22] MEDS: ATORVASTATIN 20 MG TAB PO SCH (20:07)
[2019-09-23 05:57] VITALS: BP 132/88
[2019-09-23] MEDS: LEVOTHYROXINE 137MCG TABLET (0.137MG) PO SCH (06:28)
[2019-09-23] MEDS: MAALOX 30 ML SUSP *UDC PO PRN (07:20)
[2019-09-23] MEDS: PARoxetine 20 MG TAB PO SCH (08:02)
[2019-09-23 08:03] VITALS: BP 132/88
[2019-09-23] MEDS: METHYLPHENIDATE 5 MG TAB PO SCH ×2 (08:03→12:12)
[2019-09-23] MEDS: BUPRENORPHINE/NALOXONE 8-2MG SUBLINGUAL TABLET(SUBOXONE) SL SCH (08:03)
[2019-09-23] MEDS: NICOTINE 21MG/24HR 1 EA TRANSDERMAL TD SCH (08:03)
[2019-09-23] MEDS: PROPRANOLOL 80 MG LA CAP PO SCH (08:03)
--- NOTE | 2019-09-23 09:16 | MHDSPDOC ---
[facility] Discharge Summary Discharge Summary DATE OF ADMISSION: Sep 18, 2019 at 06:09 DATE OF DISCHARGE: 09/23/19 Discharge Dion Mckinnon MRN: N/A Date of : N/A Date of Service: 09/23/2019 Diagnoses Unspecified bipolar disorder. Opioid use disorder, in remission. Tobacco use disorder, in remission. Unspecified cluster B personality. History of Present Illness The patient is well known 39-year-old man presents with suicidal thoughts and angry thoughts and paranoia towards his neighbors. He has a previous history of multiple different admissions and a history of bipolar disorder presents and is resumed on home medications. Reports that his current living situation is his primary reason for presentation as he does not like his neighbors. Consultants Involved Hospitalist/PCP screening Treatment and Progress On The Unit The patient was admitted to the mental health unit and subsequently resumed all his home medications. After examination appeared quite clear that he was presenting primarily due to stressors with his neighbor's. He was observed and his symptoms resolved without much issue and the environment seemed to support him. After he found out his neighbors would be being evicted his symptoms have vanished including his suicidal thoughts and any auditory hallucinations. Suggesting that he was primarily presenting due to situational problems and does have gan history of malingering for such issues. He had no major behavioral problems and was discharged without incident at his own request. Discharge Assessment 39-year-old man with likely some form of bipolar as well as multiple substance problems in the setting of cluster B persona traits presents and is observed. He's resumed all home medications without incident and resolves primarily due to his situational problem with neighbors. The patient at the time of discharge did not meet criteria for involuntary admission/extension due to having a normal mental status exam, fair insight into the situation, They are engaged in the discharge process, as well as being friendly and amenable in behavioral control and havent been engaging in any observed concerning behavior or ideation recently. They decline voluntary extension/admission at this time and must be discharged in good reji, as Im unable to make a case for holding the patient against their will. They may have historical risk factors of admissions and other interactions with psychiatry however, those are not modifiable from a clinical perspective. The patient will need to be discharged in good reji. Mental Status Examination General: Well dressed with good hygiene Speech: Spontaneous and fluid Thought processes: Linear and logical MSK: Smooth and coordinated gait, no signs of tremors or involuntary orofacial movements Thought content: Future orientated Abstract reasoning, and computation: Intact Description of associations: Intact Description of abnormal or psychotic thoughts: Denies any suicidal or homicidal ideation. Denies any auditory or visual hallucinations. Does not appear to be responding to internal stimuli. Does not appear to be endorsing any bizarre or paranoid ideation. Judgment: fair Insight: fair Orientation: Alert and orientated 3 Cognition: Grossly normal Recent and remote memory: Intact Attention span and concentration: Intact Fund of knowledge: Adequate Mood: "okay" Affect: Euthymic with a full range Follow Up The social work team worked during the predischarge meeting in order to evaluate for further issues of lethality address them fully before discharge. They worked on safety planning with the patient's family members in order to ensure that the patient will have a safe and effective discharge. Time Spent The amount of time spent in the coordination of care for this patient was approximately 45 minutes. Vital Signs/I&Os Vital Signs Date Time Temp Pulse Resp B/P (MAP) Pulse Ox O2 Delivery O2 Flow Rate FiO2 09/23/19 08:03 52 132/88 09/23/19 05:57 98.5 18 100 Room Air Medications Scheduled Atorvastatin Calcium (Atorvastatin Calcium) 40 Mg Tab, 40 MG PO QHS, (Reported) Buprenorphine HCl/Naloxone HCl (Suboxone 8 mg-2 mg Sl Film) 1 Mis Mis, 1 STRIP SL BID for 30 Days, #30 (Reported) Levothyroxine Sodium (Synthroid) 137 Mcg Tablet, 137 MCG PO DAILY, (Reported) Linaclotide (Linzess) 290 Mcg Cap, 290 MCG PO DAILY, (Reported) Methylphenidate HCl (Ritalin) 20 Mg Tablet, 20 MG PO TID, (Reported) 0800, 1200, 1600 Minocycline HCl (Minocycline HCl) 100 Mg Capsule, 100 MG PO DAILY, (Reported) Nicotine (Nicotine Patch) 21 Mg Patch.td24, 1 PATCH TD DAILY for tobacco for 30 Days, #30 Olanzapine (Olanzapine) 5 Mg Tablet, 5 MG PO QHS, (Reported) Paroxetine HCl (Paroxetine HCl) 40 Mg Tablet, 40 MG PO DAILY, (Reported) Propranolol HCl (Propranolol HCl ER) 160 Mg Cap.sa.24h, 160 MG PO DAILY, (Reported) Scheduled PRN Hydroxyzine Pamoate (Vistaril) 50 Mg Capsule, 100 MG PO BID PRN for ANXIETY/AG ITATION, (Reported) Allergies Coded Allergies: aripiprazole (Verified Adverse Reaction, Intermediate, dystonia, 09/23/19) haloperidol (Verified Adverse Reaction, Intermediate, dystonia, 09/23/19) risperidone (Verified Adverse Reaction, Intermediate, dystonia, 09/23/19) ziprasidone (Verified Adverse Reaction, Intermediate, dystonia, 09/23/19) NATI ABREU DO Sep 23, 2019 09:16
[2019-09-23] MEDS ORDERED: NICO21PAT TD (09:41)
== END 2019-09-23 12:55 | disposition home or self-care (01) | DRG 885 ==
LOC: M ED 03:40 → M ED INP 06:09 → M PSY 10:15
PROVIDERS: ADMIT Psychiatry & Neurology Psychiatry; ATTEND Psychiatry & Neurology Addiction Medicine
DX: F31.9 Bipolar disorder, unspecified (principal); R45.851 Suicidal ideations; F43.10 Post-traumatic stress disorder, unspecified; F60.89 Other specific personality disorders; F11.11 Opioid abuse, in remission; I10 Essential (primary) hypertension; Z91.5 Personal history of self-harm; Z62.811 Personal history of psychological abuse in childhood; Z79.899 Other long term (current) drug therapy; Z88.8 Allergy status to other drugs, medicaments and biological substances; K59.09 Other constipation; L70.8 Other acne; E78.5 Hyperlipidemia, unspecified; E03.9 Hypothyroidism, unspecified; Z87.891 Personal history of nicotine dependence; Z59.2 Discord with neighbors, lodgers and landlord

== ENCOUNTER 2019-09-23 18:47 | Emergency (ER) | payer MEDICARE, MEDICAID ==
[~2019-09-23] VITALS: Ht 175.3 cm; Wt 119.6 kg
[~2019-09-23 18:47] MED LIST changes: +NICO21PAT TD; +PARO40TA2 PO
[2019-09-23 18:48] VITALS: BP 140/97
[2019-09-23 20:35] LABS: AMPHETAMINES LEVEL URINE NEGATIVE (NEGATIVE); BARBITURATES URINE NEGATIVE (NEGATIVE); BENZODIAZEPINES URINE NEGATIVE (NEGATIVE); CANNABINOIDS URINE POSITIVE (NEGATIVE); COCAINE METABOLITE URINE NEGATIVE (NEGATIVE); METHADONE URINE NEGATIVE (NEGATIVE); OPIATES URINE NEGATIVE (NEGATIVE); PHENCYCLIDINE URINE NEGATIVE (NEGATIVE)
[2019-09-23 20:43] LABS: HEMATOCRIT 43.1 % (42.0-52.0); HEMOGLOBIN 14.9 g/dl (13.5-17.5); MEAN CORPUSCULAR HEMOGLOBIN 31.2 pg (27.0-33.0); MEAN CORPUSCULAR HGB CONC 34.6 g/dl (32.0-36.5); MEAN CORPUSCULAR VOLUME 90.2 fl (80.0-96.0); PLATELET COUNT, AUTOMATED 202 10^3/uL (150-450); RED BLOOD COUNT 4.78 10^6/uL (4.30-6.10); WHITE BLOOD COUNT 8.8 10^3/uL (4.0-10.0)
[2019-09-23 20:49] LABS: ACETAMINOPHEN LEVEL < 2.0 UG/ML (10.0-30.0); ALBUMIN 4.2 GM/DL (3.2-5.2); ALT/SGPT 67 U/L (12-78); BILIRUBIN,DIRECT 0.2 MG/DL (0.0-0.2); BILIRUBIN,TOTAL 0.6 MG/DL (0.2-1.0); BLOOD UREA NITROGEN 17 MG/DL (7-18); CALCIUM LEVEL 9.1 MG/DL (8.5-10.1); CARBON DIOXIDE LEVEL 27 MEQ/L (21-32); CHLORIDE LEVEL 106 MEQ/L (98-107); CREATININE FOR GFR 1.05 MG/DL (0.70-1.30); ETHYL ALCOHOL (ETHANOL) < 0.003 % (0.000-0.010); GLOMERULAR FILTRATION RATE > 60.0 (>60); GLUCOSE, FASTING 129 MG/DL (70-100); POTASSIUM SERUM 4.3 MEQ/L (3.5-5.1); SALICYLATE LEVEL < 1.7 MG/DL (5.0-30.0); SODIUM LEVEL 140 MEQ/L (136-145); THYROID STIMULATING HORMONE 0.982 uIU/ML (0.358-3.740)
== END 2019-09-23 21:00 | disposition home or self-care (01) ==
LOC: M ED 18:47
DX: F43.0 Acute stress reaction (principal); I10 Essential (primary) hypertension; F31.9 Bipolar disorder, unspecified; F20.9 Schizophrenia, unspecified; F90.9 Attention-deficit hyperactivity disorder, unspecified type; F43.10 Post-traumatic stress disorder, unspecified; K21.9 Gastro-esophageal reflux disease without esophagitis; M26.609 Unspecified temporomandibular joint disorder, unspecified side; F17.210 Nicotine dependence, cigarettes, uncomplicated; Z88.8 Allergy status to other drugs, medicaments and biological substances; Z79.899 Other long term (current) drug therapy
CPT/HCPCS: 36415; 80048; 80076; 80307; 84443; 85027; 99282; G0480

== ENCOUNTER 2019-09-25 12:40 | Emergency (ER) | payer MEDICARE, MEDICAID ==
[~2019-09-25] VITALS: Ht 172.7 cm; Wt 118.2 kg
[2019-09-25] MEDS ORDERED: ALPRAZolam 0.5 MG TAB PO ONE (13:45)
[2019-09-25 14:46] LABS: AMPHETAMINES LEVEL URINE POSITIVE (NEGATIVE); BARBITURATES URINE NEGATIVE (NEGATIVE); BENZODIAZEPINES URINE NEGATIVE (NEGATIVE); CANNABINOIDS URINE POSITIVE (NEGATIVE); COCAINE METABOLITE URINE NEGATIVE (NEGATIVE); METHADONE URINE NEGATIVE (NEGATIVE); OPIATES URINE NEGATIVE (NEGATIVE); PHENCYCLIDINE URINE NEGATIVE (NEGATIVE)
[2019-09-25 15:15] LABS: HEMATOCRIT 41.6 % (42.0-52.0); HEMOGLOBIN 14.3 g/dl (13.5-17.5); MEAN CORPUSCULAR HEMOGLOBIN 31.6 pg (27.0-33.0); MEAN CORPUSCULAR HGB CONC 34.4 g/dl (32.0-36.5); PLATELET COUNT, AUTOMATED 208 10^3/uL (150-450); RED BLOOD COUNT 4.52 10^6/uL (4.30-6.10); WHITE BLOOD COUNT 8.6 10^3/uL (4.0-10.0)
[2019-09-25 15:45] LABS: ACETAMINOPHEN LEVEL < 2.0 UG/ML (10.0-30.0); ALT/SGPT 65 U/L (12-78); BILIRUBIN,DIRECT < 0.1 MG/DL (0.0-0.2); BILIRUBIN,TOTAL 0.5 MG/DL (0.2-1.0); BLOOD UREA NITROGEN 23 MG/DL (7-18); CALCIUM LEVEL 8.2 MG/DL (8.5-10.1); CARBON DIOXIDE LEVEL 21 MEQ/L (21-32); CHLORIDE LEVEL 111 MEQ/L (98-107); CREATININE FOR GFR 1.01 MG/DL (0.70-1.30); ETHYL ALCOHOL (ETHANOL) < 0.003 % (0.000-0.010); GLOMERULAR FILTRATION RATE > 60.0 (>60); GLUCOSE, FASTING 143 MG/DL (70-100); POTASSIUM SERUM 4.2 MEQ/L (3.5-5.1); SALICYLATE LEVEL < 1.7 MG/DL (5.0-30.0); SODIUM LEVEL 141 MEQ/L (136-145); TOTAL PROTEIN 7.6 GM/DL (6.4-8.2)
[2019-09-25 16:03] VITALS: BP 131/59
== END 2019-09-25 16:03 | disposition home or self-care (01) ==
LOC: M ED 12:40
DX: F41.1 Generalized anxiety disorder (principal); F33.9 Major depressive disorder, recurrent, unspecified; I10 Essential (primary) hypertension; E03.9 Hypothyroidism, unspecified; E78.5 Hyperlipidemia, unspecified; F90.9 Attention-deficit hyperactivity disorder, unspecified type; F19.10 Other psychoactive substance abuse, uncomplicated; Z88.8 Allergy status to other drugs, medicaments and biological substances; Z79.899 Other long term (current) drug therapy
CPT/HCPCS: 36415; 80048; 80076; 80307; 84443; 85027; 99284; G0480

== ENCOUNTER 2019-10-14 22:04 | Emergency (ER) | payer MEDICARE, MEDICAID ==
[~2019-10-14] VITALS: Ht 172.7 cm; Wt 115.0 kg
[2019-10-14 22:05] VITALS: BP 143/94
[2019-10-14] MEDS ORDERED: TRAZ-257 PO (22:12)
== END 2019-10-14 22:50 | disposition home or self-care (01) ==
LOC: M ED 22:04
DX: F41.9 Anxiety disorder, unspecified (principal); G47.00 Insomnia, unspecified; I10 Essential (primary) hypertension; K21.9 Gastro-esophageal reflux disease without esophagitis; E03.9 Hypothyroidism, unspecified; F43.10 Post-traumatic stress disorder, unspecified; F31.9 Bipolar disorder, unspecified; Z88.8 Allergy status to other drugs, medicaments and biological substances; Z79.899 Other long term (current) drug therapy

== ENCOUNTER 2019-11-11 12:50 | Emergency (ER) | payer MEDICARE, MEDICAID ==
[~2019-11-11] VITALS: Ht 175.3 cm; Wt 119.0 kg
[2019-11-11 12:50] VITALS: BP 170/99
[2019-11-11] MEDS ORDERED: TOPR200T PO (13:18)
[2019-11-11] MEDS ORDERED: EZET1TAB8 (13:18)
== END 2019-11-11 13:49 | disposition left against medical advice (07) ==
LOC: M ED 12:50
DX: F99 Mental disorder, not otherwise specified (principal); Z53.20 Procedure and treatment not carried out because of patient's decision for unspecified reasons

== ENCOUNTER 2019-11-13 20:36 | Inpatient (IN) | payer MEDICARE, MEDICAID ==
[~2019-11-13] VITALS: Ht 172.7 cm; Wt 113.6 kg
[~2019-11-13 20:36] MED LIST changes: -BUPR150T3 PO; +BUPR150T4 PO; +EZET1TAB8 PO; +GABA-282 PO; -GABA-843 PO; +HYDR-3490 PO; -HYDR25TAB PO; +MIRT-62 PO; +QUET50TA3 PO; -QUET5TAB PO; -REME15TA PO; +TOPR200T PO
[2019-11-13] MEDS: OLANZapine 10 MG TAB PO SCH (21:00)
[2019-11-13] MEDS ORDERED: NICOTINE 14 MG/24 HR TRANSDERMAL TD ONE (21:45)
[2019-11-13 21:51] LABS: HEMATOCRIT 38.6 % (42.0-52.0); HEMOGLOBIN 13.4 g/dl (13.5-17.5); MEAN CORPUSCULAR HEMOGLOBIN 32.1 pg (27.0-33.0); MEAN CORPUSCULAR HGB CONC 34.7 g/dl (32.0-36.5); MEAN CORPUSCULAR VOLUME 92.3 fl (80.0-96.0); PLATELET COUNT, AUTOMATED 177 10^3/uL (150-450); RED BLOOD COUNT 4.18 10^6/uL (4.30-6.10); WHITE BLOOD COUNT 8.2 10^3/uL (4.0-10.0)
[2019-11-13 22:15] LABS: AMPHETAMINES LEVEL URINE NEGATIVE (NEGATIVE); BARBITURATES URINE NEGATIVE (NEGATIVE); BENZODIAZEPINES URINE NEGATIVE (NEGATIVE); CANNABINOIDS URINE POSITIVE (NEGATIVE); COCAINE METABOLITE URINE NEGATIVE (NEGATIVE); METHADONE URINE POSITIVE (NEGATIVE); OPIATES URINE NEGATIVE (NEGATIVE); PHENCYCLIDINE URINE NEGATIVE (NEGATIVE)
[2019-11-13 22:31] LABS: ACETAMINOPHEN LEVEL 2.4 UG/ML (10.0-30.0); ALBUMIN 2.9 GM/DL (3.2-5.2); ALT/SGPT 39 U/L (12-78); BILIRUBIN,DIRECT 0.1 MG/DL (0.0-0.2); BILIRUBIN,TOTAL 0.3 MG/DL (0.2-1.0); BLOOD UREA NITROGEN 9 MG/DL (7-18); CALCIUM LEVEL 7.9 MG/DL (8.5-10.1); CARBON DIOXIDE LEVEL 31 MEQ/L (21-32); CHLORIDE LEVEL 107 MEQ/L (98-107); CREATININE FOR GFR 0.72 MG/DL (0.70-1.30); ETHYL ALCOHOL (ETHANOL) < 0.003 % (0.000-0.010); GLOMERULAR FILTRATION RATE > 60.0 (>60); GLUCOSE, FASTING 78 MG/DL (70-100); POTASSIUM SERUM 3.9 MEQ/L (3.5-5.1); SALICYLATE LEVEL 2.9 MG/DL (5.0-30.0); SODIUM LEVEL 143 MEQ/L (136-145); TOTAL PROTEIN 6.2 GM/DL (6.4-8.2)
[2019-11-13] MEDS ORDERED: META1TAB22 PO (23:30)
[2019-11-13] MEDS ORDERED: traZODone 50 MG TAB PO PRN (23:45)
[2019-11-13] MEDS ORDERED: ACETAMINOPHEN TAB 650MG DOSE (2X325MG) PO PRN (23:45)
[2019-11-13] MEDS ORDERED: MAALOX 30 ML SUSP *UDC PO PRN (23:45)
[2019-11-13] MEDS ORDERED: MOM 30ML SUSPENSION UDC PO PRN (23:45)
[2019-11-14 01:14] VITALS: BP 126/81
[2019-11-14] MEDS: LEVOTHYROXINE 137MCG TABLET (0.137MG) PO SCH (06:00)
[2019-11-14] MEDS: NICOTINE 21MG/24HR 1 EA TRANSDERMAL TD SCH (09:00)
[2019-11-14 15:48] VITALS: BP 138/75
--- NOTE | 2019-11-14 18:09 | HPEPDOC ---
[facility] Medical History & Physical Date of Admission Nov 13, 2019 Date of Service: Nov 14, 2019 History and Physical CHIEF COMPLAINT: depression HISTORY OF PRESENT ILLNESS: Patient is 39 year old male with PMH Depression, bipolar disorder, HTN, HLD, hypothyroidism and chronic constipation presents to [facility] with reported depression and suicidal ideation. He reportedly has had admission for similar problems in the past. He reports that he is still depress with suicidal ideation but denies any physical complaints including any pain/discomfort, SOB, fever, chills. He stated that he is here because he got in arguments with his neighbors but does not elaborate beyond that. PAST MEDICAL HISTORY: Refer to [facility] PAST SURGICAL HISTORY: None reported SOCIAL HISTORY: Smokes about 5 cigs/day and smokes marijuana. Denies alcohol use. FAMILY HISTORY: Parents both with HTN and HLD ALLERGIES: Please see below. REVIEW OF SYSTEMS: 10 point review of system negative except as stated in HPI HOME MEDICATIONS: Please see below. PHYSICAL EXAMINATION: General: No acute distress, Alert Eyes: Normal sclera, EOMI HENT: Atraumatic Cardiovascular: Normal rate, normal rhythm. Pulmonary: Clear to auscultation b/l, no wheezing GI: Soft, nontender, nondistended Skin: Warm and dry Neuro: CN grossly intact. No focal deficits. Strengths equal b/l. Psych: oriented x 3, low tone with somewhat flat affect LABORATORY DATA: See below. IMAGING: none MICROBIOLOGY: Please see below. ASSESSMENT AND PLAN: 1. Depression with suicidal ideation - To be evaluated and managed per psych. 2. bipolar disorder - c/w home meds and psych treatment. 3. HTN - BP controlled. - Restart home med toprol XL 200mg daily. 4. hx substance abuse - On Suboxone, restart home dose. 5. Ezetimibe/simvastatin combo Patient medically stable at this time. Will sign off, please call with any questions or concerns. Vital Signs Vital Signs Date Time Temp Pulse Resp B/P (MAP) Pulse Ox O2 Delivery O2 Flow Rate FiO2 11/14/19 15:48 98.7 50 18 138/75 (96) 11/14/19 01:14 97 Room Air Laboratory Data Labs 24H Laboratory Tests 2 11/13/19 21:12: Nucleated Red Blood Cells % (auto) 0.0, Anion Gap 5L, Glomerular Filtration Rate > 60.0, Calcium Level 7.9L, Total Bilirubin 0.3, Direct Bilirubin 0.1, Aspartate Amino Transf (AST/SGOT) 32, Alanine Aminotransferase (ALT/SGPT) 39, Alkaline Phosphatase 66, Total Protein 6.2L, Albumin 2.9L, Albumin/Globulin Ratio 0.9, Thyroid Stimulating Hormone (TSH) 0.930, Salicylates Level 2.9L, Acetaminophen Level 2.4L, Ethyl Alcohol Level < 0.003 11/13/19 21:28: Urine Opiates Screen NEGATIVE, Urine Methadone Screen POSITIVEH, Urine Barbiturates Screen NEGATIVE, Urine Phencyclidine Screen NEGATIVE, Urine Amphetamines Screen NEGATIVE, Urine Benzodiazepines Screen NEGATIVE, Urine Cocaine Metabolite Screen NEGATIVE, Urine Cannabinoids Screen POSITIVEH CBC/BMP Laboratory Tests 11/13/19 21:12 Home Medications Scheduled Buprenorphine HCl/Naloxone HCl (Suboxone 8 mg-2 mg Sl Film) 1 Mis Mis, 1 STRIP SL BID Ezetimibe/Simvastatin (Ezetimibe-Simvastatin 10-40 mg) 1 Each Tablet, 1 TAB PO DAILY Levothyroxine Sodium (Synthroid) 137 Mcg Tablet, 137 MCG PO DAILY Linaclotide (Linzess) 290 Mcg Cap, 290 MCG PO DAILY Metaxalone (Metaxalone) 800 Mg Tablet, 800 MG PO BID Methylphenidate HCl (Ritalin) 20 Mg Tablet, 20 MG PO TID 0800, 1200, 1600 Metoprolol Succinate (Toprol Xl) 200 Mg Tab.er.24h, 200 MG PO DAILY Olanzapine (Olanzapine) 5 Mg Tablet, 5 MG PO QHS Paroxetine HCl (Paroxetine HCl) 40 Mg Tablet, 40 MG PO DAILY Trazodone HCl (Trazodone HCl) 100 Mg Tablet, 100 MG PO QHS Scheduled PRN Hydroxyzine Pamoate (Vistaril) 50 Mg Capsule, 100 MG PO BID PRN for ANXIETY/AGITATION Allergies Coded Allergies: aripiprazole (Verified Adverse Reaction, Intermediate, dystonia, 11/13/19) haloperidol (Verified Adverse Reaction, Intermediate, dystonia, 11/13/19) risperidone (Verified Adverse Reaction, Intermediate, dystonia, 11/13/19) ziprasidone (Verified Adverse Reaction, Intermediate, dystonia, 11/13/19) A-FIB/CHADSVASC A-FIB History Current/History of A-Fib/PAF?: No JAYRO RAMIREZ MD Nov 14, 2019 18:09
[2019-11-14] MEDS: METOPROLOL SUCC (TopROL XL) 100MG *XL* TAB PO SCH (18:56)
[2019-11-14] MEDS ORDERED: PARoxetine 20MG TABLET PO ONE (19:00)
[2019-11-14] MEDS: OLANZapine 10 MG TAB PO SCH (21:00)
[2019-11-14] MEDS: BUPRENORPHINE/NALOXONE 8-2MG SUBLINGUAL TABLET(SUBOXONE) SL SCH (21:00)
[2019-11-15] MEDS: LEVOTHYROXINE 137MCG TABLET (0.137MG) PO SCH (05:50)
[2019-11-15 05:59] VITALS: BP_SYST 154; BP_SYST 166; BP_DIAS 89
[2019-11-15] MEDS: METOPROLOL SUCC (TopROL XL) 100MG *XL* TAB PO SCH (09:00)
[2019-11-15] MEDS: BUPRENORPHINE/NALOXONE 8-2MG SUBLINGUAL TABLET(SUBOXONE) SL SCH ×2 (09:00→17:39)
[2019-11-15] MEDS ORDERED: METOPROLOL SUCC *XL* 25MG TAB (TopROL *XL*) PO SCH (09:00)
[2019-11-15] MEDS: NICOTINE 21MG/24HR 1 EA TRANSDERMAL TD SCH (09:42)
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
[2019-11-15 11:29] VITALS: BP 120/78
[2019-11-15] MEDS: amLODIPine 5 MG TAB PO SCH (14:15)
[2019-11-15] MEDS: METHYLPHENIDATE 5 MG TAB PO SCH (15:51)
[2019-11-15 16:32] VITALS: BP 137/82
--- NOTE | 2019-11-15 19:16 | MHIPN ---
DATE: 11/15/2019 The patient is seen via telepsychiatry due to the current coronavirus crisis. The patient today states, "I'm having a lot of anxiety today." Also, he said that he did not have sleep well last night, but he says he feels less drowsy and is not sleeping on days today. The patient talked about his ongoing problems with his neighbor. He says he does have the financial ability to move out, but he feels like he has no support to help him. The patient states that due to the current coronavirus crisis, he is not able to go and see his family. Normally he would go and stay with his parents while he is looking for a different apartment, but he is not able to do that due to Covid virus crisis. He states that at times it is difficult for him to differentiate whether he is just being paranoid or indeed the neighbors are indeed responsible for all the disturbance that he has alluded to. He says that he is afraid to call the police because he states that they might retaliate. He wants me to restart his Ritalin. He says that the Ritalin does help him concentrate better. He says that he is currently attending college in the field of psychology. MENTAL STATUS EXAM: This patient is alert and oriented times three. He is pleasant and cooperative, verbally spontaneous. Eye contact is good. No formal thought disorder noted. The patient admits that he does feel depressed. Affect is appropriate to mood. He is not psychotic, suicidal or homicidal today. Concentration is fair. Memory intact. Insight and judgment is fair. I do want to clarify that the patient sometimes is not sure whether he is having some paranoid thinking about the neighbors. When I asked him to elaborate, he said that he feels that if he sees somebody talking that they are talking about him, possibly some ideas of reference. DIAGNOSIS: Unspecified bipolar disorder. Opioid use disorder in remission. History of post-traumatic stress disorder (PTSD). TREATMENT PLAN: At this point, I will go ahead and restart the patient on his Ritalin. I reminded him that he does have trazodone available to take for sleep, but he needs to ask for it. We will continue to monitor him for continued elevation and stabilization of his mood and continued resolution of suicidal and homicidal ideation. MARLA
[2019-11-15] MEDS: OLANZapine 10 MG TAB PO SCH (21:05)
[2019-11-15] MEDS: traZODone 100 MG TAB PO PRN (21:05)
[2019-11-16] MEDS: LEVOTHYROXINE 137MCG TABLET (0.137MG) PO SCH (05:43)
[2019-11-16 06:27] VITALS: BP 128/83
[2019-11-16] MEDS: METHYLPHENIDATE 5 MG TAB PO SCH ×3 (07:40→15:54)
[2019-11-16] MEDS: amLODIPine 5 MG TAB PO SCH (08:33)
[2019-11-16] MEDS: NICOTINE 21MG/24HR 1 EA TRANSDERMAL TD SCH (08:33)
[2019-11-16] MEDS: BUPRENORPHINE/NALOXONE 8-2MG SUBLINGUAL TABLET(SUBOXONE) SL SCH ×2 (08:49→16:50)
[2019-11-16] MEDS: PARoxetine 20MG TABLET PO SCH (14:32)
[2019-11-16 16:23] VITALS: BP 136/82
[2019-11-16] MEDS: hydrOXYzine 50 MG TAB PO PRN (20:05)
[2019-11-16] MEDS: OLANZapine 10 MG TAB PO SCH (20:05)
[2019-11-16] MEDS: traZODone 100 MG TAB PO PRN (20:05)
[2019-11-17] MEDS: LEVOTHYROXINE 137MCG TABLET (0.137MG) PO SCH (05:43)
[2019-11-17 06:20] VITALS: BP 152/92
[2019-11-17] MEDS: METHYLPHENIDATE 5 MG TAB PO SCH ×3 (07:33→15:59)
[2019-11-17] MEDS: PARoxetine 20MG TABLET PO SCH (09:03)
[2019-11-17] MEDS: amLODIPine 5 MG TAB PO SCH (09:03)
[2019-11-17] MEDS: NICOTINE 21MG/24HR 1 EA TRANSDERMAL TD SCH (09:03)
[2019-11-17] MEDS: BUPRENORPHINE/NALOXONE 8-2MG SUBLINGUAL TABLET(SUBOXONE) SL SCH ×2 (09:05→16:19)
--- NOTE | 2019-11-17 09:20 | MHIPNPDOC ---
[facility] Progress Note Progress Note DATE OF SERVICE: 11/17/19 HPI: Dion presents today for concerns regarding his paranoid thoughts. He denies any dry mouth, shakiness, tremors, constipation, or diarrhea. He is experiencing no suicidal or homicidal thoughts or hallucinations.He wants to be discharged after the weekend instead of on Friday because there is nothing to keep him busy on the weekends. MEDICATIONS: He has restarted taking Ritalin and is also on Trazodone. Objective Appearance: Well groomed. Well nourished. Behavior: Cooperative with good eye contact. Engaged. Pleasant. Affect: Full range. Appropriate to context. Mildly dysthymic. Mood: Appropriately reactive. Generally good. Euthymic. Cognition: Alert, Attentive, and Oriented to person, place, time. Thought Form: Linear and goal directed. Thought Content: No thoughts of self harm. No evidence of delusions. No evidence of suicidal ideation. No evidence of aggressive or homicidal ideation. Perception: No perceptual abnormalities noted. Judgement: intact as evidenced by decision making in the recent past. Insight: good insight into symptoms and treatment options. Assessment F31.9 Bipolar disorder, unspecified F11.10 Opioid abuse, uncomplicated F12.10 Cannabis abuse, uncomplicated Plan The patient is a 39 year old man who presents again for further assessment. He is doing well on his current mixture of Paxil 40 mg, Ritalin 20 mg TID, and Suboxone. Well see whether discharge is appropriate on Friday as he still endorses some thoughts in anger related to his neighbors, a frequent problem for him. Vital Signs Vital Signs Date Time Temp Pulse Resp B/P (MAP) Pulse Ox O2 Delivery O2 Flow Rate FiO2 11/17/19 09:03 100 134/84 11/17/19 06:20 98.4 16 Room Air 11/16/19 06:27 99 Current Medications Current Medications Medications (Trade) Dose Ordered Sig/Santiago Route PRN Reason Start Time Stop Time Status Last Admin Dose Admin Acetaminophen (Tylenol Tab) 650 mg Q6HP PRN PO HEADACHE or DISCOMFORT 11/13/19 23:45 Al Hydrox/Mg Hydrox/Simethicone (Mylanta) 30 ml Q4HP PRN PO HEARTBURN/INDIGESTION 11/13/19 23:45 Amlodipine Besylate (Norvasc) 5 mg DAILY PO 11/15/19 09:00 11/17/19 09:03 Buprenorphine/ Naloxone (Suboxone 8/2mg) 1 tab BID SL 11/14/19 21:00 11/15/19 17:29 DC Buprenorphine/ Naloxone (Suboxone 8/2mg) 1 tab BID@0900,1700 SL 11/15/19 17:00 11/17/19 09:05 Home Med (Med Rec Complete!) ASDIRECTED XX 11/13/19 23:45 11/13/19 23:33 DC Hydroxyzine HCl (Atarax) 50 mg Q4HP PRN PO anxiety/agitation 11/13/19 23:45 11/16/19 20:05 Levothyroxine Sodium (Synthroid) 137 mcg DAILY@06 PO 11/14/19 06:00 11/17/19 05:43 Magnesium Hydroxide (Milk Of Magnesia) 30 ml DAILYPRN PRN PO CONSTIPATION 11/13/19 23:45 Methylphenidate HCl (Ritalin) 20 mg TID@0800,1200,1600 PO 11/15/19 16:00 11/17/19 07:33 Metoprolol Succinate (TopROL XL) 25 mg DAILY PO 11/15/19 09:00 11/14/19 18:07 DC Metoprolol Succinate (TopROL XL) 200 mg DAILY PO 11/14/19 09:00 11/15/19 12:47 DC 11/14/19 18:56 Nicotine (Nicoderm Cq 21mg) 1 patch DAILY TD 11/14/19 09:00 11/17/19 09:03 Olanzapine (ZyPREXA) 10 mg QHS PO 11/13/19 21:00 11/16/19 20:05 Paroxetine HCl (PAXil) 40 mg DAILY PO 11/16/19 09:00 11/17/19 09:03 Trazodone HCl (Desyrel) 100 mg QHSP PRN PO INSOMNIA 11/13/19 23:45 11/14/19 18:07 DC Trazodone HCl (Desyrel) 100 mg QHSP PRN PO INSOMNIA 11/14/19 18:07 11/16/19 20:05 Allergies Coded Allergies: aripiprazole (Verified Adverse Reaction, Intermediate, dystonia, 11/13/19) haloperidol (Verified Adverse Reaction, Intermediate, dystonia, 11/13/19) risperidone (Verified Adverse Reaction, Intermediate, dystonia, 11/13/19) ziprasidone (Verified Adverse Reaction, Intermediate, dystonia, 11/13/19) NATI ABREU DO Nov 17, 2019 09:20
--- NOTE | 2019-11-17 15:05 | MHIPN ---
DATE OF SERVICE: 11/16/2019 This visit was done via telepsychiatry due to the current Coronavirus crisis. Today, the patient tells me that he is feeling less anxious, still feeling very overwhelmed and feeling depressed. He continues to feel helpless around his home situation, but he thinks that after talking to his mom that it is better for him to stay in his current apartment and he is hoping to gain some further coping skills as to how to deal with these neighbors. He was denying and suicidal or homicidal ideations today, and he did say that he slept well with the trazodone. MENTAL STATUS EXAMINATION: He is alert and oriented times three. Eye contact is fairly good. Verbally spontaneous. There is no formal thought disorder. He says that his mood is depressed. Affect is appropriate to mood. He is not psychotic, suicidal, or homicidal. Concentration is fair. Memory intact. Insight and judgment fair. DIAGNOSIS: Bipolar disorder. Opioid use disorder, in remission. History of posttraumatic stress disorder. TREATMENT PLAN: At this point, we will continue to monitor the patient for continued elevation and stabilization of his mood. I have restarted his Ritalin. He is feeling much better today as far as his concentration goes. We will continue to titrate his medications as indicated. MARLA
[2019-11-17 16:21] VITALS: BP 141/94
[2019-11-17] MEDS: hydrOXYzine 50 MG TAB PO PRN (20:19)
[2019-11-17] MEDS: OLANZapine 10 MG TAB PO SCH (20:19)
[2019-11-17] MEDS: traZODone 100 MG TAB PO PRN (20:19)
[2019-11-18 06:12] VITALS: BP 140/87
[2019-11-18] MEDS: LEVOTHYROXINE 137MCG TABLET (0.137MG) PO SCH (06:13)
[2019-11-18] MEDS: NICOTINE 21MG/24HR 1 EA TRANSDERMAL TD SCH (07:51)
[2019-11-18] MEDS: METHYLPHENIDATE 5 MG TAB PO SCH ×3 (07:52→15:51)
[2019-11-18] MEDS: BUPRENORPHINE/NALOXONE 8-2MG SUBLINGUAL TABLET(SUBOXONE) SL SCH ×2 (07:52→17:05)
[2019-11-18] MEDS: PARoxetine 20MG TABLET PO SCH (07:53)
[2019-11-18] MEDS: amLODIPine 5 MG TAB PO SCH (07:57)
--- NOTE | 2019-11-18 09:45 | MHIPNPDOC ---
[facility] Progress Note Progress Note DATE OF SERVICE: 11/18/19 Dion presents today for concerns regarding his follow up. He has an unexpected problem with his opioid. He has a family emergency, so he needs to be discharged. He is planning on coming back. He is not having any suicidal or homicidal thoughts or hallucinations. Brad admits to be handling the sudden change well. Objective Appearance: Well nourished. Well groomed. Behavior: Cooperative with good eye contact. Pleasant. Engaged. Affect: Full range. Appropriate to context. Mood: Appropriately reactive. Euthymic. Generally good. Speech: Normal volume. Normal rate. Motor: No gross motor abnormalities. Cognition: Alert, Attentive, and Oriented to person, place, time. Memory: No formal testing. No gross abnormalities of short or terminal gauger memory noted during interview. Thought Form: Linear and goal directed. Thought Content: No evidence of delusions. No evidence of aggressive or homicidal ideation. No thoughts of self harm. No evidence of suicidal ideation. Perception: No perceptual abnormalities noted. Judgement: intact as evidenced by decision making in the recent past. Insight: good insight into symptoms and treatment options. Assessment F31.9 Bipolar disorder, unspecified F31.70 Bipolar disorder, currently in remission, most recent episode unspecified F11.11 Opioid abuse, in remission F12.90 Cannabis use, unspecified, uncomplicated Plan Discharge patient tomorrow at his request as previously planned, patient will go to take care of his siblings and family. Patient is making good process. Continue current medications at this time. Patient will return in a couple of days. Vital Signs Vital Signs Date Time Temp Pulse Resp B/P (MAP) Pulse Ox O2 Delivery O2 Flow Rate FiO2 11/18/19 07:57 89 11/18/19 06:12 98.3 12 140/87 (104) Room Air 11/16/19 06:27 99 Current Medications Current Medications Medications (Trade) Dose Ordered Sig/Santiago Route PRN Reason Start Time Stop Time Status Last Admin Dose Admin Acetaminophen (Tylenol Tab) 650 mg Q6HP PRN PO HEADACHE or DISCOMFORT 11/13/19 23:45 Al Hydrox/Mg Hydrox/Simethicone (Mylanta) 30 ml Q4HP PRN PO HEARTBURN/INDIGESTION 11/13/19 23:45 Amlodipine Besylate (Norvasc) 5 mg DAILY PO 11/15/19 09:00 11/18/19 07:57 Buprenorphine/ Naloxone (Suboxone 8/2mg) 1 tab BID SL 11/14/19 21:00 11/15/19 17:29 DC Buprenorphine/ Naloxone (Suboxone 8/2mg) 1 tab BID@0900,1700 SL 11/15/19 17:00 11/18/19 07:52 Home Med (Med Rec Complete!) ASDIRECTED XX 11/13/19 23:45 11/13/19 23:33 DC Hydroxyzine HCl (Atarax) 50 mg Q4HP PRN PO anxiety/agitation 11/13/19 23:45 11/17/19 20:19 Levothyroxine Sodium (Synthroid) 137 mcg DAILY@06 PO 11/14/19 06:00 11/18/19 06:13 Magnesium Hydroxide (Milk Of Magnesia) 30 ml DAILYPRN PRN PO CONSTIPATION 11/13/19 23:45 Methylphenidate HCl (Ritalin) 20 mg TID@0800,1200,1600 PO 11/15/19 16:00 11/18/19 07:52 Metoprolol Succinate (TopROL XL) 25 mg DAILY PO 11/15/19 09:00 11/14/19 18:07 DC Metoprolol Succinate (TopROL XL) 200 mg DAILY PO 11/14/19 09:00 11/15/19 12:47 DC 11/14/19 18:56 Nicotine (Nicoderm Cq 21mg) 1 patch DAILY TD 11/14/19 09:00 11/18/19 07:51 Olanzapine (ZyPREXA) 10 mg QHS PO 11/13/19 21:00 11/17/19 20:19 Paroxetine HCl (PAXil) 40 mg DAILY PO 11/16/19 09:00 11/18/19 07:53 Trazodone HCl (Desyrel) 100 mg QHSP PRN PO INSOMNIA 11/13/19 23:45 11/14/19 18:07 DC Trazodone HCl (Desyrel) 100 mg QHSP PRN PO INSOMNIA 11/14/19 18:07 11/17/19 20:19 Allergies Coded Allergies: aripiprazole (Verified Adverse Reaction, Intermediate, dystonia, 11/13/19) haloperidol (Verified Adverse Reaction, Intermediate, dystonia, 6/20/20) risperidone (Verified Adverse Reaction, Intermediate, dystonia, 11/13/19) ziprasidone (Verified Adverse Reaction, Intermediate, dystonia, 11/13/19) NATI ABREU DO Nov 18, 2019 09:44
[2019-11-18 17:39] VITALS: BP 150/90
[2019-11-18] MEDS: traZODone 100 MG TAB PO PRN (20:27)
[2019-11-18] MEDS: hydrOXYzine 50 MG TAB PO PRN (20:27)
[2019-11-18] MEDS: OLANZapine 10 MG TAB PO SCH (20:27)
[2019-11-19] MEDS: LEVOTHYROXINE 137MCG TABLET (0.137MG) PO SCH (06:38)
[2019-11-19 06:47] VITALS: BP 145/80
[2019-11-19] MEDS: METHYLPHENIDATE 5 MG TAB PO SCH ×2 (07:23→11:34)
[2019-11-19 08:11] VITALS: BP 132/84
[2019-11-19] MEDS: PARoxetine 20MG TABLET PO SCH (08:11)
[2019-11-19] MEDS: amLODIPine 5 MG TAB PO SCH (08:11)
[2019-11-19] MEDS: BUPRENORPHINE/NALOXONE 8-2MG SUBLINGUAL TABLET(SUBOXONE) SL SCH (08:13)
[2019-11-19] MEDS: NICOTINE 21MG/24HR 1 EA TRANSDERMAL TD SCH (09:00)
--- NOTE | 2019-11-19 09:25 | MHDSPDOC ---
[facility] Discharge Summary Discharge Summary DATE OF ADMISSION: Nov 13, 2019 at 23:32 DATE OF DISCHARGE: Nov 19, 2019 at 13:39 DISCHARGE DIAGNOSES: See Problem list below REASON FOR ADMISSION: 39-year-old man with a history of psychosis presents with unusual paranoia CONSULTANTS INVOLVED:[ None (basic hospitalist screening)] TREATMENT AND PROGRESS ON THE UNIT : Medication changes: continued on previous medications with no changes Behavior on unit: friendly amenable resolves well without any major interventions Treatment attendance: attended at times Notable issues on presentation: presented with unusual paranoid thoughts, however, does attempt to get refills of controlled substances State on discharge: [stable] DISCHARGE ASSESSMENT: The patient a 39 year old man, with likely adjustment problems, presented to [facility], where they treated primarily supportive with positive results. Legal status considerations: The patient at the time of discharge did not meet criteria for involuntary admission/extension due to having a baseline mental status exam, baseline insight into the situation, They are engaged in the discharge process, as well as being friendly and amenable in behavioral control and havent been engaging in any observed concerning behavior or ideation recently. They decline voluntary extension/admission at this time and must be discharged in good reji, as Im unable to make a case for holding the patient against their will. They may have historical risk factors of admissions and other interactions with psychiatry however, those are not modifiable from a clinical perspective. The patient will need to be discharged in good reji. MENTAL STATUS EXAMINATION ON DISCHARGE: General: [Well dressed with good hygiene] Speech: [Spontaneous and fluid] Thought processes: [Linear and logical] Thought content: [Future orientated] Abstract reasoning, and computation: [Intact] Description of associations: [Intact] Description of abnormal or psychotic thoughts:[Denies any suicidal or homicidal ideation. Denies any auditory or visual hallucinations. Does not appear to be responding to internal stimuli. Does not appear to be endorsing any bizarre or paranoid ideation.] Judgment: limited Insight: limited Orientation: [Alert and orientated 3] Recent and remote memory: [Intact] Attention span and concentration: [Intact] Fund of knowledge: [Adequate] Mood: ["okay"] Affect: [Euthymic with a full range] PLAN/FOLLOWUP ARRANGEMENTS: Follow up appointments made (PCP and MH in 5 days of D/C date) and safety plan completed. Safety Planning aspects completed prior to discharge [RN reviewed crisis hotline information and other aspects to empower patient to access care in interim before next appointment.] The amount of time spent in the coordination of care for this patient was approximately 30 minutes. Vital Signs/I&Os Vital Signs Date Time Temp Pulse Resp B/P (MAP) Pulse Ox O2 Delivery O2 Flow Rate FiO2 11/19/19 08:11 102 132/84 11/19/19 06:47 98.4 14 Room Air 11/18/19 17:39 100 Medications Scheduled Buprenorphine HCl/Naloxone HCl (Suboxone 8 mg-2 mg Sl Film) 1 Mis Mis, 1 STRIP SL BID, (Reported) Ezetimibe/Simvastatin (Ezetimibe-Simvastatin 10-40 mg) 1 Each Tablet, 1 TAB PO DAILY, (Reported) Levothyroxine Sodium (Synthroid) 137 Mcg Tablet, 137 MCG PO DAILY, (Reported) Linaclotide (Linzess) 290 Mcg Cap, 290 MCG PO DAILY, (Reported) Metaxalone (Metaxalone) 800 Mg Tablet, 800 MG PO BID, (Reported) Methylphenidate HCl (Ritalin) 20 Mg Tablet, 20 MG PO TID, (Reported) 0800, 1200, 1600 Metoprolol Succinate (Toprol Xl) 200 Mg Tab.er.24h, 200 MG PO DAILY, (Reported) Olanzapine (Olanzapine) 5 Mg Tablet, 5 MG PO QHS, (Reported) Paroxetine HCl (Paroxetine HCl) 40 Mg Tablet, 40 MG PO DAILY, (Reported) Trazodone HCl (Trazodone HCl) 100 Mg Tablet, 100 MG PO QHS, (Reported) Scheduled PRN Hydroxyzine Pamoate (Vistaril) 50 Mg Capsule, 100 MG PO BID PRN for ANXIETY/AGITATION, (Reported) Allergies Coded Allergies: aripiprazole (Verified Adverse Reaction, Intermediate, dystonia, 11/13/19) haloperidol (Verified Adverse Reaction, Intermediate, dystonia, 11/13/19) risperidone (Verified Adverse Reaction, Intermediate, dystonia, 11/13/19) ziprasidone (Verified Adverse Reaction, Intermediate, dystonia, 11/13/19) Problems (1) Bipolar 1 disorder, mixed, full remission Response to Treatment: Stable (2) Adjustment reaction, depressive, brief Status: Resolved Plan / VTE VTE Prophylaxis Ordered?: NATI Tejada DO Nov 19, 2019 09:25
== END 2019-11-19 13:39 | disposition home or self-care (01) | DRG 885 ==
LOC: M ED 20:36 → M ED INP 23:32 → M PSY 11-14 00:36
PROVIDERS: ADMIT Psychiatry & Neurology Psychiatry; ATTEND Psychiatry & Neurology Addiction Medicine
DX: F31.9 Bipolar disorder, unspecified (principal); R45.851 Suicidal ideations; F43.10 Post-traumatic stress disorder, unspecified; F11.11 Opioid abuse, in remission; I10 Essential (primary) hypertension; E78.5 Hyperlipidemia, unspecified; E03.9 Hypothyroidism, unspecified; F12.90 Cannabis use, unspecified, uncomplicated; K59.09 Other constipation; F17.210 Nicotine dependence, cigarettes, uncomplicated; Z62.819 Personal history of unspecified abuse in childhood; Z79.899 Other long term (current) drug therapy; Z88.8 Allergy status to other drugs, medicaments and biological substances

== ENCOUNTER 2019-12-13 19:30 | Emergency (ER) | payer MEDICARE, MEDICAID ==
[~2019-12-13] VITALS: Ht 172.7 cm; Wt 113.4 kg
[~2019-12-13 19:30] MED LIST changes: +BUPR150T3 PO; -BUPR150T4 PO; -GABA-282 PO; +GABA-843 PO; -HYDR-3490 PO; +HYDR25TAB PO; +META1TAB22 PO; -MIRT-62 PO; -QUET50TA3 PO; +QUET5TAB PO; +REME15TA PO
[2019-12-13] MEDS ORDERED: PROP160C (20:32)
[2019-12-13] MEDS ORDERED: PARO30TA4 (20:32)
[2019-12-13 20:54] LABS: HEMATOCRIT 42.1 % (42.0-52.0); HEMOGLOBIN 14.9 g/dl (13.5-17.5); MEAN CORPUSCULAR HEMOGLOBIN 32.5 pg (27.0-33.0); MEAN CORPUSCULAR HGB CONC 35.4 g/dl (32.0-36.5); MEAN CORPUSCULAR VOLUME 91.9 fl (80.0-96.0); PLATELET COUNT, AUTOMATED 224 10^3/uL (150-450); RED BLOOD COUNT 4.58 10^6/uL (4.30-6.10); WHITE BLOOD COUNT 7.9 10^3/uL (4.0-10.0)
[2019-12-13 21:15] LABS: AMPHETAMINES LEVEL URINE POSITIVE (NEGATIVE); BARBITURATES URINE NEGATIVE (NEGATIVE); BENZODIAZEPINES URINE NEGATIVE (NEGATIVE); CANNABINOIDS URINE POSITIVE (NEGATIVE); COCAINE METABOLITE URINE NEGATIVE (NEGATIVE); METHADONE URINE NEGATIVE (NEGATIVE); OPIATES URINE NEGATIVE (NEGATIVE); PHENCYCLIDINE URINE NEGATIVE (NEGATIVE)
[2019-12-13 21:45] LABS: ACETAMINOPHEN LEVEL < 2.0 UG/ML (10.0-30.0); ALBUMIN 3.9 GM/DL (3.2-5.2); ALT/SGPT 68 U/L (12-78); BILIRUBIN,DIRECT < 0.1 MG/DL (0.0-0.2); BILIRUBIN,TOTAL 0.4 MG/DL (0.2-1.0); BLOOD UREA NITROGEN 16 MG/DL (7-18); CARBON DIOXIDE LEVEL 32 MEQ/L (21-32); CHLORIDE LEVEL 105 MEQ/L (98-107); CREATININE FOR GFR 0.97 MG/DL (0.70-1.30); ETHYL ALCOHOL (ETHANOL) < 0.003 % (0.000-0.010); GLOMERULAR FILTRATION RATE > 60.0 (>60); GLUCOSE, FASTING 135 MG/DL (70-100); POTASSIUM SERUM 3.6 MEQ/L (3.5-5.1); SALICYLATE LEVEL 1.7 MG/DL (5.0-30.0); SODIUM LEVEL 141 MEQ/L (136-145); TOTAL PROTEIN 7.6 GM/DL (6.4-8.2)
--- NOTE | 2019-12-14 08:02 | ECGEPIP ---
[facility] - ED Test Date: 2019-12-14 Pat Name: IZABEL DEL ANGEL Department: Room: - Gender: Male Records And Information Manager: ozzie : 1980 Requested By: NADER KINSEY Order Number: [id number] Reading MD: Nader Bautista Measurements Intervals Holley Rate: 46 P: 26 PA: 171 QRS: 54 QRSD: 110 T: 82 QT: 498 QTc: 438 Interpretive Statements SINUS BRADYCARDIA Similar to tracing done 12-09-15 Electronically Signed on 12-14-2019 8:02:18 EDT by Nader Bautista
[2019-12-14] MEDS ORDERED: METHYLPHENIDATE 5 MG TAB PO ONE (09:30)
[2019-12-14] MEDS ORDERED: LEVOTHYROXINE 137MCG TABLET (0.137MG) PO ONE (09:30)
[2019-12-14] MEDS ORDERED: BUPRENORPHINE/NALOXONE 8-2MG SUBLINGUAL TABLET(SUBOXONE) SL ONE (09:30)
[2019-12-14 15:12] VITALS: BP 119/70
== END 2019-12-14 15:18 ==
LOC: M ED 19:30
DX: R45.851 Suicidal ideations (principal); F31.30 Bipolar disorder, current episode depressed, mild or moderate severity, unspecified; Z63.4 Disappearance and death of family member; F90.9 Attention-deficit hyperactivity disorder, unspecified type; R00.1 Bradycardia, unspecified; K21.9 Gastro-esophageal reflux disease without esophagitis; I10 Essential (primary) hypertension; E78.5 Hyperlipidemia, unspecified; Z79.899 Other long term (current) drug therapy; Z88.8 Allergy status to other drugs, medicaments and biological substances
CPT/HCPCS: 80048; 80076; 80307; 84443; 85027; 93005; 99284; G0480; U0002

== ENCOUNTER 2020-01-12 11:06 | Inpatient (IN) | payer MEDICARE, MEDICAID ==
[~2020-01-12] VITALS: Ht 175.3 cm; Wt 119.4 kg
[~2020-01-12 11:06] MED LIST changes: +PARO30TA4; +PROP160C
[2020-01-12] MEDS ORDERED: ADDE1TAB14 PO (11:33)
[2020-01-12 12:02] LABS: HEMATOCRIT 40.5 % (42.0-52.0); HEMOGLOBIN 14.1 g/dl (13.5-17.5); MEAN CORPUSCULAR HEMOGLOBIN 32.3 pg (27.0-33.0); MEAN CORPUSCULAR HGB CONC 34.8 g/dl (32.0-36.5); MEAN CORPUSCULAR VOLUME 92.9 fl (80.0-96.0); PLATELET COUNT, AUTOMATED 174 10^3/uL (150-450); RED BLOOD COUNT 4.36 10^6/uL (4.30-6.10); WHITE BLOOD COUNT 6.1 10^3/uL (4.0-10.0)
[2020-01-12 12:34] LABS: HCG, SERUM QUALITATIVE NEGATIVE
[2020-01-12 12:40] LABS: AMPHETAMINES LEVEL URINE POSITIVE (NEGATIVE); BARBITURATES URINE NEGATIVE (NEGATIVE); BENZODIAZEPINES URINE NEGATIVE (NEGATIVE); CANNABINOIDS URINE POSITIVE (NEGATIVE); COCAINE METABOLITE URINE NEGATIVE (NEGATIVE); METHADONE URINE NEGATIVE (NEGATIVE); OPIATES URINE NEGATIVE (NEGATIVE); PHENCYCLIDINE URINE NEGATIVE (NEGATIVE)
[2020-01-12 12:41] LABS: ACETAMINOPHEN LEVEL < 2.0 UG/ML (10.0-30.0); ALBUMIN 3.5 GM/DL (3.2-5.2); ALT/SGPT 77 U/L (12-78); BILIRUBIN,DIRECT 0.2 MG/DL (0.0-0.2); BILIRUBIN,TOTAL 0.6 MG/DL (0.2-1.0); BLOOD UREA NITROGEN 13 MG/DL (7-18); CALCIUM LEVEL 8.9 MG/DL (8.5-10.1); CARBON DIOXIDE LEVEL 27 MEQ/L (21-32); CHLORIDE LEVEL 109 MEQ/L (98-107); CREATININE FOR GFR 0.76 MG/DL (0.70-1.30); ETHYL ALCOHOL (ETHANOL) 0.003 % (0.000-0.010); GLOMERULAR FILTRATION RATE > 60.0 (>60); GLUCOSE, FASTING 87 MG/DL (70-100); POTASSIUM SERUM 3.3 MEQ/L (3.5-5.1); SALICYLATE LEVEL < 1.7 MG/DL (5.0-30.0); SODIUM LEVEL 144 MEQ/L (136-145); THYROID STIMULATING HORMONE 0.135 uIU/ML (0.358-3.740); TOTAL PROTEIN 6.8 GM/DL (6.4-8.2)
[2020-01-12] MEDS ORDERED: hydrOXYzine 50 MG TAB PO ONE (13:30)
[2020-01-12] MEDS ORDERED: LEVO150T7 PO (13:52)
[2020-01-12] MEDS ORDERED: ADDE20TA PO (13:52)
[2020-01-12] MEDS ORDERED: ATOR40TA75 PO (13:52)
[2020-01-12] MEDS ORDERED: PARO20TA4 PO (13:56)
[2020-01-12] MEDS ORDERED: ACETAMINOPHEN TAB 650MG DOSE (2X325MG) PO PRN (16:15)
[2020-01-12] MEDS ORDERED: OLANZapine ORAL DISINTEGRATING TAB 5MG PO PRN (16:15)
[2020-01-12] MEDS ORDERED: hydrOXYzine 50 MG TAB PO PRN (16:15)
[2020-01-12] MEDS ORDERED: MOM 30ML SUSPENSION UDC PO PRN (16:15)
[2020-01-12] MEDS ORDERED: IBUPROFEN 400 MG TAB PO PRN (16:15)
[2020-01-12 20:00] VITALS: BP 144/76
[2020-01-12] MEDS: ATORVASTATIN 20 MG TAB PO SCH (20:42)
[2020-01-12] MEDS: OLANZapine 5 MG TAB PO SCH (20:42)
[2020-01-12] MEDS: traZODone 100 MG TAB PO SCH (20:42)
[2020-01-12] MEDS ORDERED: POTASSIUM CHLORIDE 10 MEQ SR TABLET PO ONE (20:45)
[2020-01-12] MEDS: BUPRENORPHINE/NALOXONE 8-2MG SUBLINGUAL TABLET(SUBOXONE) SL SCH (20:49)
[2020-01-13] MEDS: LEVOTHYROXINE 150MCG TABLET (0.15MG) PO SCH (06:00)
[2020-01-13 06:55] VITALS: BP 125/65
[2020-01-13] MEDS: OLANZapine 5 MG TAB PO SCH ×2 (08:02→20:27)
[2020-01-13] MEDS: PARoxetine 20 MG TAB PO SCH (08:02)
[2020-01-13] MEDS: BUPRENORPHINE/NALOXONE 8-2MG SUBLINGUAL TABLET(SUBOXONE) SL SCH ×2 (08:02→20:28)
--- NOTE | 2020-01-13 09:07 | HPEPDOC ---
[facility] Medical History & Physical Date of Admission Jan 12, 2020 Date of Service: Jan 13, 2020 History and Physical CHIEF COMPLAINT: Suicidal ideation, paranoia HISTORY OF PRESENT ILLNESS: Patient is 39 year old male with PMH Depression, bipolar disorder, HTN, HLD, hypothyroidism and chronic constipation presents to [facility] with reported paranoia and suicidal ideation. He notes his father recently committed suicide, and has had worsening paranoia with suicidal ideation with a plan to run into traffic. He denies any other medical complaints including chest pain, shortness of breath, headaches, fevers, chills, nausea, vomiting or diarrhea. PAST MEDICAL HISTORY: suicidal ideation depression bipolar disorder HTN HLD Hypothyroidism chronic constipation PAST SURGICAL HISTORY: None reported SOCIAL HISTORY: Smokes about 5 cigs/day and smokes marijuana. Denies alcohol use. FAMILY HISTORY: Parents both with HTN and HLD ALLERGIES: Please see below. REVIEW OF SYSTEMS: 10 point review of system negative except as stated in HPI HOME MEDICATIONS: Please see below. PHYSICAL EXAMINATION: General: No acute distress, Alert, HEENT: NC/AT, EOMI, PERRL Heart: +S1S2, RRR Pulmonary: Clear to auscultation b/l, no wheezing GI: Soft, nontender, nondistended Skin: Warm and dry Neuro: CN grossly intact. No focal deficits. Strengths equal b/l. Psych: AAOx3 LABORATORY DATA: See below. IMAGING: none MICROBIOLOGY: Please see below. ASSESSMENT AND PLAN: 1. paranoia with suicidal ideation - To be evaluated and managed per primary team - psych. 2. bipolar disorder - as per primary team 3. HTN - BP controlled. 4. hx substance abuse - continue suboxone 5. DLP - continue home meds - lipitor 6. Hypothyroidism - check thyroid profile - continue oral supplementation Patient medically stable at this time. Will sign off, please call with any questions or concerns. Vital Signs Vital Signs Date Time Temp Pulse Resp B/P (MAP) Pulse Ox O2 Delivery O2 Flow Rate FiO2 01/13/20 06:55 97.0 51 18 125/65 (85) 01/12/20 20:00 98 Room Air Laboratory Data Labs 24H Laboratory Tests 2 01/12/20 11:43: Nucleated Red Blood Cells % (auto) 0.0, Anion Gap 8, Glomerular Filtration Rate > 60.0, Calcium Level 8.9, Total Bilirubin 0.6, Direct Bilirubin 0.2, Aspartate Amino Transf (AST/SGOT) 61H, Alanine Aminotransferase (ALT/SGPT) 77, Alkaline Phosphatase 64, Total Protein 6.8, Albumin 3.5, Albumin/Globulin Ratio 1.1, Thyroid Stimulating Hormone (TSH) 0.135L, Human Chorionic Gonadotropin, Qual NEGATIVE, Salicylates Level < 1.7L, Acetaminophen Level < 2.0L, Ethyl Alcohol Level 0.003 01/12/20 11:49: Urine Opiates Screen NEGATIVE, Urine Methadone Screen NEGATIVE, Urine Barbiturates Screen NEGATIVE, Urine Phencyclidine Screen NEGATIVE, Urine Amphetamines Screen POSITIVEH, Urine Benzodiazepines Screen NEGATIVE, Urine Cocaine Metabolite Screen NEGATIVE, Urine Cannabinoids Screen POSITIVEH CBC/BMP Laboratory Tests 01/12/20 11:43 Home Medications Scheduled Atorvastatin Calcium (Atorvastatin Calcium) 40 Mg Tablet, 40 MG PO QHS Buprenorphine HCl/Naloxone HCl (Suboxone 8 mg-2 mg Sl Film) 1 Mis Mis, 1 STRIP SL BID Dextroamphetamine/Amphetamine (Adderall 20 mg Tablet) 20 Mg Tablet, 20 MG PO TID Levothyroxine Sodium (Levothyroxine Sodium) 150 Mcg Tablet, 150 MCG PO DAILY Linaclotide (Linzess) 290 Mcg Cap, 290 MCG PO DAILY Olanzapine (Olanzapine) 5 Mg Tablet, 20 MG PO BID Pt states taking at inprecise times due to sedating effects Paroxetine HCl (Paroxetine) 20 Mg Tablet, 60 MG PO DAILY Trazodone HCl (Trazodone HCl) 100 Mg Tablet, 100 MG PO QHS Scheduled PRN Hydroxyzine Pamoate (Vistaril) 50 Mg Capsule, 100 MG PO BID PRN for A NXIETY/AGITATION Miscellaneous Medications Propranolol HCl (Propranolol HCl ER) 160 Mg Cap.sa.24h Allergies Coded Allergies: aripiprazole (Verified Adverse Reaction, Intermediate, dystonia, 11/13/19) haloperidol (Verified Adverse Reaction, Intermediate, dystonia, 11/13/19) risperidone (Verified Adverse Reaction, Intermediate, dystonia, 11/13/19) ziprasidone (Verified Adverse Reaction, Intermediate, dystonia, 11/13/19) A-FIB/CHADSVASC A-FIB History Current/History of A-Fib/PAF?: No LOYDA MIKE MD Jan 13, 2020 09:07
[2020-01-13 11:19] VITALS: BP 119/74
[2020-01-13] MEDS: PROPRANOLOL 80 MG LA CAP PO SCH (11:30)
[2020-01-13 14:05] LABS: BLOOD UREA NITROGEN 11 MG/DL (7-18); CALCIUM LEVEL 8.7 MG/DL (8.5-10.1); CARBON DIOXIDE LEVEL 30 MEQ/L (21-32); CHLORIDE LEVEL 106 MEQ/L (98-107); FREE THYROXINE INDEX 2.7 % (1.4-3.8); GLOMERULAR FILTRATION RATE > 60.0 (>60); GLUCOSE, FASTING 148 MG/DL (70-100); MAGNESIUM LEVEL 2.1 MG/DL (1.8-2.4); POTASSIUM SERUM 3.9 MEQ/L (3.5-5.1); SODIUM LEVEL 141 MEQ/L (136-145); T UPTAKE 36 % (33-40); THYROXINE (T4) 7.5 UG/DL (4.5-12.0)
[2020-01-13 18:00] VITALS: BP 129/79
[2020-01-13] MEDS: traZODone 100 MG TAB PO SCH (20:27)
[2020-01-13] MEDS: ATORVASTATIN 20 MG TAB PO SCH (20:28)
[2020-01-13] MEDS: busPIRone 10 MG TAB PO SCH (20:28)
[2020-01-14] MEDS: LEVOTHYROXINE 150MCG TABLET (0.15MG) PO SCH (06:24)
[2020-01-14 07:19] VITALS: BP 157/91
[2020-01-14] MEDS: busPIRone 10 MG TAB PO SCH ×2 (08:08→20:04)
[2020-01-14] MEDS: PARoxetine 20 MG TAB PO SCH (08:08)
[2020-01-14] MEDS: OLANZapine 5 MG TAB PO SCH ×2 (08:08→20:06)
[2020-01-14] MEDS: PROPRANOLOL 80 MG LA CAP PO SCH (08:09)
[2020-01-14] MEDS: BUPRENORPHINE/NALOXONE 8-2MG SUBLINGUAL TABLET(SUBOXONE) SL SCH ×2 (08:12→20:07)
--- NOTE | 2020-01-14 14:06 | MHIPNPDOC ---
[facility] Progress Note Progress Note DATE OF SERVICE: 01/14/20 HISTORY: Patient is a 39 year old male who self presented to [facility] with complaints of suicidal ideation, homicidal ideation and paranoia VITAL SIGNS: See below. NEW TEST RESULTS: CURRENT MEDICATIONS: See below. MENTAL STATUS EXAMINATION: Patient is a 39-year old single, disabled male, who is reporting continued anxiety. He was found sleeping this afternoon. He reports that he has some drowsiness due to Zyprexa in the AM and requesting all 40 mg at HS. Speech: Is normal tone and volume. Minimal responses Language skills are good. Thought processes including: linear and goal oriented. Thought content: reporting mild paranoia. Abstract reasoning, and computation: fair. No loose associations Description of abnormal or psychotic thoughts: mild paranoia about his neighbors Judgment: Fair Insight: Fair Orientation: Alert and oriented. Recent and remote memory: Intact. Attention span and concentration: Fair. Language: Fund of knowledge: congruent with his education Mood: Reactive. Affect: Flat. DIAGNOSES: 1. Bipolar Disorder ASSESSMENT: Patient is reporting continued anxiety, mild depression, no current suicidal ideation or homicidality MANAGEMENT PLAN: Will continue patient on his medications, and discharge when he is stable TIME SPENT: 15 minutes Vital Signs Vital Signs Date Time Temp Pulse Resp B/P (MAP) Pulse Ox O2 Delivery O2 Flow Rate FiO2 01/14/20 08:09 70 110/70 01/14/20 07:19 97.1 14 97 Room Air Current Medications Current Medications Medications (Trade) Dose Ordered Sig/Santiago Route PRN Reason Start Time Stop Time Status Last Admin Dose Admin Acetaminophen (Tylenol Tab) 650 mg Q6HP PRN PO HEADACHE or DISCOMFORT 01/12/20 16:15 Al Hydrox/Mg Hydrox/Simethicone (Mylanta) 30 ml Q4HP PRN PO HEARTBURN/INDIGESTION 01/12/20 16:15 Atorvastatin Calcium (Lipitor) 40 mg QHS PO 01/12/20 21:00 01/13/20 20:28 Buprenorphine/ Naloxone (Suboxone 8/2mg) 1 tab BID SL 01/12/20 21:00 01/14/20 08:12 Buspirone HCl (Buspar) 10 mg BID PO 01/13/20 21:00 01/14/20 08:08 Home Med (Med Rec Complete!) ASDIRECTED XX 01/12/20 14:00 01/12/20 14:00 DC Hydroxyzine HCl (Atarax) 100 mg BID PRN PO ANXIETY/AGITATION 01/12/20 16:15 Ibuprofen (Advil) 400 mg Q6HP PRN PO PAIN 01/12/20 16:15 Levothyroxine Sodium (Synthroid) 150 mcg DAILY@0600 PO 01/13/20 06:00 01/14/20 06:24 Magnesium Hydroxide (Milk Of Magnesia) 30 ml DAILYPRN PRN PO CONSTIPATION 01/12/20 16:15 Olanzapine (ZyPREXA ZYDIS) 5 mg Q4HP PRN PO AGITATION 01/12/20 16:15 01/13/20 18:51 Olanzapine (ZyPREXA) 20 mg BID PO 01/12/20 21:00 01/14/20 08:08 Paroxetine HCl (PAXil) 60 mg DAILY PO 01/13/20 09:00 01/14/20 08:08 Propranolol HCl (Inderal La) 160 mg DAILY PO 01/13/20 09:00 01/14/20 08:09 Trazodone HCl (Desyrel) 100 mg QHS PO 01/12/20 21:00 01/13/20 20:27 Allergies Coded Allergies: aripiprazole (Verified Adverse Reaction, Intermediate, dystonia, 11/13/19) haloperidol (Verified Adverse Reaction, Intermediate, dystonia, 11/13/19) risperidone (Verified Adverse Reaction, Intermediate, dystonia, 11/13/19) ziprasidone (Verified Adverse Reaction, Intermediate, dystonia, 11/13/19) ADONAY DRISCOLL NP Jan 14, 2020 14:06
[2020-01-14 16:00] VITALS: BP 111/68
[2020-01-14] MEDS: ATORVASTATIN 20 MG TAB PO SCH (20:06)
[2020-01-14] MEDS: traZODone 100 MG TAB PO SCH (20:06)
[2020-01-15] MEDS: LEVOTHYROXINE 150MCG TABLET (0.15MG) PO SCH (05:47)
[2020-01-15 06:23] VITALS: BP 142/78
[2020-01-15] MEDS: busPIRone 10 MG TAB PO SCH ×2 (08:24→20:07)
[2020-01-15] MEDS: PROPRANOLOL 80 MG LA CAP PO SCH (08:24)
[2020-01-15] MEDS: PARoxetine 20 MG TAB PO SCH (08:24)
[2020-01-15] MEDS: OLANZapine 5 MG TAB PO SCH ×2 (08:24→20:08)
[2020-01-15] MEDS: BUPRENORPHINE/NALOXONE 8-2MG SUBLINGUAL TABLET(SUBOXONE) SL SCH ×2 (09:01→16:21)
[2020-01-15 16:12] VITALS: BP 115/70
[2020-01-15] MEDS: MAALOX 30 ML SUSP *UDC PO PRN (16:48)
[2020-01-15] MEDS: ATORVASTATIN 20 MG TAB PO SCH (20:07)
[2020-01-15] MEDS: traZODone 100 MG TAB PO SCH (20:07)
[2020-01-16] MEDS: LEVOTHYROXINE 150MCG TABLET (0.15MG) PO SCH (05:08)
[2020-01-16 06:45] VITALS: BP 138/78
[2020-01-16] MEDS: PROPRANOLOL 80 MG LA CAP PO SCH (08:24)
[2020-01-16] MEDS: busPIRone 10 MG TAB PO SCH ×2 (08:24→20:04)
[2020-01-16] MEDS: OLANZapine 5 MG TAB PO SCH ×2 (08:24→20:05)
[2020-01-16] MEDS: PARoxetine 20 MG TAB PO SCH (08:24)
[2020-01-16] MEDS: BUPRENORPHINE/NALOXONE 8-2MG SUBLINGUAL TABLET(SUBOXONE) SL SCH ×2 (08:33→15:38)
[2020-01-16] MEDS: MAALOX 30 ML SUSP *UDC PO PRN (10:19)
[2020-01-16 16:28] VITALS: BP 127/67
[2020-01-16] MEDS: traZODone 100 MG TAB PO SCH (20:04)
[2020-01-16] MEDS: ATORVASTATIN 20 MG TAB PO SCH (20:04)
[2020-01-17] MEDS: MAALOX 30 ML SUSP *UDC PO PRN ×2 (04:25→14:48)
[2020-01-17] MEDS: LEVOTHYROXINE 150MCG TABLET (0.15MG) PO SCH (05:47)
[2020-01-17 06:46] VITALS: BP 108/62
[2020-01-17] MEDS: PROPRANOLOL 80 MG LA CAP PO SCH (08:07)
[2020-01-17] MEDS: busPIRone 10 MG TAB PO SCH ×2 (08:08→20:36)
[2020-01-17] MEDS: PARoxetine 20 MG TAB PO SCH (08:08)
[2020-01-17] MEDS: BUPRENORPHINE/NALOXONE 8-2MG SUBLINGUAL TABLET(SUBOXONE) SL SCH ×2 (08:08→15:49)
[2020-01-17] MEDS: OLANZapine 5 MG TAB PO SCH ×2 (08:08→20:38)
[2020-01-17] MEDS ORDERED: ADDERALL 5 MG TAB PO SCH (09:00)
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
[2020-01-17 17:37] VITALS: BP 142/89
[2020-01-17] MEDS: traZODone 100 MG TAB PO SCH (20:37)
[2020-01-17] MEDS: ATORVASTATIN 20 MG TAB PO SCH (20:37)
[2020-01-18] MEDS: LEVOTHYROXINE 150MCG TABLET (0.15MG) PO SCH (05:56)
[2020-01-18 06:00] VITALS: BP 125/78
[2020-01-18] MEDS: busPIRone 10 MG TAB PO SCH (08:36)
[2020-01-18 08:39] VITALS: BP 125/75
[2020-01-18] MEDS: PARoxetine 20 MG TAB PO SCH (08:39)
[2020-01-18] MEDS: PROPRANOLOL 80 MG LA CAP PO SCH (08:39)
[2020-01-18] MEDS: OLANZapine 5 MG TAB PO SCH (08:40)
[2020-01-18] MEDS: BUPRENORPHINE/NALOXONE 8-2MG SUBLINGUAL TABLET(SUBOXONE) SL SCH (08:40)
[2020-01-18] MEDS: ADDERALL 5 MG TAB PO SCH ×2 (08:40→12:31)
[2020-01-18] MEDS ORDERED: LEVO150T7 PO (11:15)
[2020-01-18] MEDS ORDERED: PARO20TA4 PO (11:15)
[2020-01-18] MEDS ORDERED: ADDE20TA PO (11:15)
[2020-01-18] MEDS ORDERED: TRAZ-257 PO (11:15)
[2020-01-18] MEDS ORDERED: PROP160C PO (11:15)
[2020-01-18] MEDS ORDERED: ATOR40TA75 PO (11:15)
[2020-01-18] MEDS ORDERED: ZYPR20TA PO (11:15)
[2020-01-18] MEDS ORDERED: BUSP10TA PO (11:15)
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
== END 2020-01-18 13:10 | disposition home or self-care (01) | DRG 885 ==
LOC: M ED 11:06 → M ED INP 16:14 → M PSY 19:56
PROVIDERS: ADMIT Psychiatry & Neurology Addiction Medicine; ATTEND Psychiatry & Neurology Psychiatry
DX: F31.9 Bipolar disorder, unspecified (principal); R45.851 Suicidal ideations; R45.850 Homicidal ideations; Z79.899 Other long term (current) drug therapy; Z88.8 Allergy status to other drugs, medicaments and biological substances; I10 Essential (primary) hypertension; F17.210 Nicotine dependence, cigarettes, uncomplicated; F12.90 Cannabis use, unspecified, uncomplicated; E03.9 Hypothyroidism, unspecified; K59.00 Constipation, unspecified

== ENCOUNTER 2020-01-20 17:36 | Emergency (ER) | payer MEDICARE, MEDICAID ==
[~2020-01-20] VITALS: Ht 172.7 cm; Wt 119.3 kg
[~2020-01-20 17:36] MED LIST changes: +ADDE20TA PO; +BUSP10TA PO; +LEVO150T7 PO; +PARO20TA4 PO; +ZYPR20TA PO
[2020-01-20 17:37] VITALS: BP 135/82
[2020-01-20] MEDS ORDERED: OLAN20TA14 (18:32)
[2020-01-20] MEDS ORDERED: PARO20TA3 PO (18:32)
[2020-01-20 19:06] LABS: HEMATOCRIT 38.7 % (42.0-52.0); HEMOGLOBIN 13.3 g/dl (13.5-17.5); MEAN CORPUSCULAR HEMOGLOBIN 32.4 pg (27.0-33.0); MEAN CORPUSCULAR HGB CONC 34.4 g/dl (32.0-36.5); MEAN CORPUSCULAR VOLUME 94.4 fl (80.0-96.0); PLATELET COUNT, AUTOMATED 181 10^3/uL (150-450)
[2020-01-20 19:15] LABS: ACETAMINOPHEN LEVEL < 2.0 UG/ML (10.0-30.0); ALBUMIN 3.5 GM/DL (3.2-5.2); ALT/SGPT 52 U/L (12-78); BILIRUBIN,DIRECT 0.1 MG/DL (0.0-0.2); BILIRUBIN,TOTAL 0.3 MG/DL (0.2-1.0); BLOOD UREA NITROGEN 15 MG/DL (7-18); CALCIUM LEVEL 8.5 MG/DL (8.5-10.1); CARBON DIOXIDE LEVEL 29 MEQ/L (21-32); CHLORIDE LEVEL 108 MEQ/L (98-107); CREATININE FOR GFR 0.78 MG/DL (0.70-1.30); ETHYL ALCOHOL (ETHANOL) < 0.003 % (0.000-0.010); GLOMERULAR FILTRATION RATE > 60.0 (>60); GLUCOSE, FASTING 122 MG/DL (70-100); POTASSIUM SERUM 4.1 MEQ/L (3.5-5.1); SALICYLATE LEVEL < 1.7 MG/DL (5.0-30.0); SODIUM LEVEL 141 MEQ/L (136-145); THYROID STIMULATING HORMONE 0.357 uIU/ML (0.358-3.740); TOTAL PROTEIN 6.9 GM/DL (6.4-8.2)
== END 2020-01-20 19:10 | disposition left against medical advice (07) ==
LOC: M ED 17:36
DX: R45.851 Suicidal ideations (principal); F32.9 Major depressive disorder, single episode, unspecified; I10 Essential (primary) hypertension; E78.9 Disorder of lipoprotein metabolism, unspecified; E07.9 Disorder of thyroid, unspecified; K59.00 Constipation, unspecified; Z91.5 Personal history of self-harm; Z88.8 Allergy status to other drugs, medicaments and biological substances; Z79.899 Other long term (current) drug therapy; Z79.891 Long term (current) use of opiate analgesic

== ENCOUNTER 2020-01-23 05:34 | Inpatient (IN) | payer MEDICARE, MEDICAID ==
[~2020-01-23] VITALS: Ht 175.3 cm; Wt 123.0 kg
[~2020-01-23 05:34] MED LIST changes: +OLAN20TA14
[2020-01-23 07:28] LABS: HEMOGLOBIN 14.1 g/dl (13.5-17.5); MEAN CORPUSCULAR HEMOGLOBIN 32.5 pg (27.0-33.0); MEAN CORPUSCULAR HGB CONC 34.4 g/dl (32.0-36.5); MEAN CORPUSCULAR VOLUME 94.5 fl (80.0-96.0); PLATELET COUNT, AUTOMATED 184 10^3/uL (150-450); RED BLOOD COUNT 4.34 10^6/uL (4.30-6.10); WHITE BLOOD COUNT 6.7 10^3/uL (4.0-10.0)
[2020-01-23 07:41] LABS: ACETAMINOPHEN LEVEL < 2.0 UG/ML (10.0-30.0); ALBUMIN 3.3 GM/DL (3.2-5.2); ALT/SGPT 57 U/L (12-78); BILIRUBIN,DIRECT 0.1 MG/DL (0.0-0.2); BILIRUBIN,TOTAL 0.4 MG/DL (0.2-1.0); BLOOD UREA NITROGEN 14 MG/DL (7-18); CALCIUM LEVEL 8.5 MG/DL (8.5-10.1); CARBON DIOXIDE LEVEL 25 MEQ/L (21-32); CHLORIDE LEVEL 109 MEQ/L (98-107); CREATININE FOR GFR 0.86 MG/DL (0.70-1.30); ETHYL ALCOHOL (ETHANOL) < 0.003 % (0.000-0.010); GLOMERULAR FILTRATION RATE > 60.0 (>60); GLUCOSE, FASTING 77 MG/DL (70-100); POTASSIUM SERUM 3.6 MEQ/L (3.5-5.1); SALICYLATE LEVEL < 1.7 MG/DL (5.0-30.0); SODIUM LEVEL 143 MEQ/L (136-145); THYROID STIMULATING HORMONE 0.225 uIU/ML (0.358-3.740); TOTAL PROTEIN 6.7 GM/DL (6.4-8.2)
[2020-01-23] MEDS ORDERED: ADDERALL 5 MG TAB PO ONE (08:30)
[2020-01-23] MEDS ORDERED: BUPRENORPHINE/NALOXONE 8-2MG SUBLINGUAL TABLET(SUBOXONE) SL ONE (08:30)
[2020-01-23] MEDS ORDERED: OLANZapine 10 MG TAB PO ONE (08:30)
[2020-01-23] MEDS ORDERED: PROPRANOLOL 20 MG TAB PO ONE (08:30)
[2020-01-23] MEDS ORDERED: PARoxetine 20 MG TAB PO ONE (08:30)
[2020-01-23] MEDS ORDERED: LEVOTHYROXINE 150MCG TABLET (0.15MG) PO ONE (08:30)
[2020-01-23 09:40] LABS: AMPHETAMINES LEVEL URINE NEGATIVE (NEGATIVE); BARBITURATES URINE NEGATIVE (NEGATIVE); BENZODIAZEPINES URINE NEGATIVE (NEGATIVE); CANNABINOIDS URINE POSITIVE (NEGATIVE); COCAINE METABOLITE URINE NEGATIVE (NEGATIVE); METHADONE URINE NEGATIVE (NEGATIVE); OPIATES URINE NEGATIVE (NEGATIVE); PHENCYCLIDINE URINE NEGATIVE (NEGATIVE)
[2020-01-23] MEDS ORDERED: PROPRANOLOL 80 MG LA CAP PO ONE (10:00)
[2020-01-23] MEDS ORDERED: MOM 30ML SUSPENSION UDC PO PRN (13:45)
[2020-01-23] MEDS ORDERED: ACETAMINOPHEN TAB 650MG DOSE (2X325MG) PO PRN (13:45)
[2020-01-23] MEDS ORDERED: hydrOXYzine 50 MG TAB PO PRN (14:00)
[2020-01-23 14:52] VITALS: BP 130/68
[2020-01-23] MEDS ORDERED: ADDE20TA PO (15:12)
[2020-01-23] MEDS ORDERED: PROP160C PO (15:12)
[2020-01-23] MEDS ORDERED: SYNT150T PO (15:12)
[2020-01-23] MEDS ORDERED: OLAN20TA14 PO (15:12)
[2020-01-23] MEDS ORDERED: ATOR40TA75 PO (15:12)
[2020-01-23] MEDS ORDERED: BUSP10TA PO (15:12)
[2020-01-23] MEDS ORDERED: TRAZ-257 PO (15:12)
[2020-01-23] MEDS: ADDERALL 5 MG TAB PO SCH (16:39)
[2020-01-23] MEDS: OLANZapine 10 MG TAB PO SCH (20:14)
[2020-01-23] MEDS: ATORVASTATIN 20 MG TAB PO SCH (20:14)
[2020-01-23] MEDS: traZODone 50 MG TAB PO PRN (20:14)
[2020-01-24] MEDS: LEVOTHYROXINE 150MCG TABLET (0.15MG) PO SCH (06:00)
[2020-01-24 06:27] VITALS: BP 142/90
[2020-01-24] MEDS: OLANZapine 10 MG TAB PO SCH ×2 (08:06→20:24)
[2020-01-24] MEDS: BUPRENORPHINE/NALOXONE 8-2MG SUBLINGUAL TABLET(SUBOXONE) SL SCH ×2 (08:06→15:34)
[2020-01-24] MEDS: ADDERALL 5 MG TAB PO SCH (08:07)
[2020-01-24] MEDS: PROPRANOLOL 80 MG LA CAP PO SCH (08:07)
[2020-01-24] MEDS: hydrOXYzine 50 MG TAB PO PRN (16:11)
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
--- NOTE | 2020-01-24 16:45 | HPEPDOC ---
[facility] Medical History & Physical Date of Admission Jan 24, 2020 Date of Service: Jan 24, 2020 Attending Physician: MARK ANTHONY BRANDT MD History and Physical Hospitalist consultation CHIEF COMPLAINT: Suicidal ideation, paranoia (similar to prior admission) HISTORY OF PRESENT ILLNESS: Patient is 39 year old male with PMH Depression, bipolar disorder, HTN, HLD, hypothyroidism and chronic constipation presents reporting paranoia and suicidal ideation. Denies CP/SOB/palpitations. No N/V/Abd pain. PAST MEDICAL HISTORY: suicidal ideation depression bipolar disorder HTN HLD Hypothyroidism chronic constipation PAST SURGICAL HISTORY: None reported SOCIAL HISTORY: Smokes about 5 cigs/day and smokes marijuana. Denies alcohol use. FAMILY HISTORY: Parents both with HTN and HLD ALLERGIES: Please see below. REVIEW OF SYSTEMS: 10 point review of system negative except as stated in HPI HOME MEDICATIONS: Please see below. PHYSICAL EXAMINATION: General: No acute distress, Alert, HEENT: NC/AT, EOMI, PERRL Heart: +S1S2, RRR Pulmonary: Clear to auscultation b/l, no wheezing GI: Soft, nontender, nondistended Skin: Warm and dry Neuro: CN grossly intact. No focal deficits. Strengths equal b/l. Psych: AAOx3 LABORATORY DATA: See below. ASSESSMENT AND PLAN: 1. paranoia with suicidal ideation - To be evaluated and managed per primary team - psych. 2. bipolar disorder - as per primary team 3. HTN - BP controlled. 4. hx substance abuse - continue suboxone per psych 5. HLD cont statin 6. Hypothyroidism - cont Synthroid Thank you for the consultation. Please call with questions. Vital Signs Vital Signs Date Time Temp Pulse Resp B/P (MAP) Pulse Ox O2 Delivery O2 Flow Rate FiO2 01/24/20 08:07 69 142/90 01/24/20 06:27 96.4 18 01/23/20 13:50 98 Room Air Home Medications Scheduled Atorvastatin Calcium (Atorvastatin Calcium) 40 Mg Tablet, 40 MG PO QHS for . Buprenorphine HCl/Naloxone HCl (Suboxone 8 mg-2 mg Sl Film) 1 Mis Mis, 1 STRIP SL BID for . Buspirone HCl (Buspirone HCl) 10 Mg Tablet, 10 MG PO BID for . Dextroamphetamine/Amphetamine (Adderall 20 mg Tablet) 20 Mg Tablet, 20 MG PO BID for . 2ND AT NOON Levothyroxine Sodium (Synthroid) 150 Mcg Tablet, 150 MCG PO DAILY for . Olanzapine (Olanzapine) 20 Mg Tablet, 20 MG PO BID for . Paroxetine HCl (Paroxetine HCl) 20 Mg Tablet, 40 MG PO DAILY for . Propranolol HCl (Propranolol HCl ER) 160 Mg Cap.sa.24h, 160 MG PO DAILY for . Trazodone HCl (Trazodone HCl) 100 Mg Tablet, 100 MG PO QHS for . Scheduled PRN Hydroxyzine Pamoate (Vistaril) 50 Mg Capsule, 100 MG PO BID PRN for ANXIETY/AGITATION Allergies Coded Allergies: aripiprazole (Verified Adverse Reaction, Intermediate, dystonia, 01/20/20) haloperidol (Verified Adverse Reaction, Intermediate, dystonia, 01/20/20) risperidone (Verified Adverse Reaction, Intermediate, dystonia, 01/20/20) ziprasidone (Verified Adverse Reaction, Intermediate, dystonia, 01/20/20) A-FIB/CHADSVASC A-FIB History Current/History of A-Fib/PAF?: No MARK ANTHONY BRANDT MD Jan 24, 2020 16:45
[2020-01-24] MEDS: NYSTATIN OINTMENT 15 GM TOP SCH ×2 (17:15→20:24)
[2020-01-24 17:53] VITALS: BP 124/62
[2020-01-24] MEDS: traZODone 50 MG TAB PO PRN (20:23)
[2020-01-24] MEDS: ATORVASTATIN 20 MG TAB PO SCH (20:24)
[2020-01-25] MEDS: LEVOTHYROXINE 150MCG TABLET (0.15MG) PO SCH (05:52)
[2020-01-25 06:26] VITALS: BP 138/92
[2020-01-25] MEDS: hydrOXYzine 50 MG TAB PO PRN ×2 (06:27→18:36)
[2020-01-25] MEDS: OLANZapine 10 MG TAB PO SCH ×2 (08:12→20:22)
[2020-01-25] MEDS: BUPRENORPHINE/NALOXONE 8-2MG SUBLINGUAL TABLET(SUBOXONE) SL SCH ×2 (08:12→16:51)
[2020-01-25] MEDS: PROPRANOLOL 80 MG LA CAP PO SCH (08:12)
[2020-01-25] MEDS: NYSTATIN OINTMENT 15 GM TOP SCH ×4 (08:12→20:21)
[2020-01-25] MEDS: MAALOX 30 ML SUSP *UDC PO PRN (10:14)
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
[2020-01-25 17:54] VITALS: BP 124/60
[2020-01-25] MEDS: ATORVASTATIN 20 MG TAB PO SCH (20:22)
[2020-01-25] MEDS: traZODone 50 MG TAB PO PRN (20:22)
[2020-01-26] MEDS: MAALOX 30 ML SUSP *UDC PO PRN ×2 (03:30→08:48)
[2020-01-26] MEDS: LEVOTHYROXINE 150MCG TABLET (0.15MG) PO SCH (05:36)
[2020-01-26 06:43] VITALS: BP 128/86
[2020-01-26] MEDS: OLANZapine 10 MG TAB PO SCH ×2 (08:13→20:27)
[2020-01-26] MEDS: BUPRENORPHINE/NALOXONE 8-2MG SUBLINGUAL TABLET(SUBOXONE) SL SCH ×2 (08:15→15:26)
[2020-01-26] MEDS: PROPRANOLOL 80 MG LA CAP PO SCH (08:15)
[2020-01-26] MEDS: NYSTATIN OINTMENT 15 GM TOP SCH ×4 (08:16→20:28)
[2020-01-26] MEDS: PARoxetine 20 MG TAB PO SCH (08:47)
[2020-01-26] MEDS: MIRALAX *UNIT DOSE* 17GM PACKET PO PRN (11:29)
[2020-01-26] MEDS: hydrOXYzine 50 MG TAB PO PRN ×2 (11:29→17:48)
[2020-01-26] MEDS: DOCUSATE SODIUM 100 MG CAP PO PRN (11:29)
[2020-01-26] MEDS: busPIRone 10 MG TAB PO SCH ×2 (15:12→20:27)
[2020-01-26 17:54] VITALS: BP 127/87
[2020-01-26] MEDS: ATORVASTATIN 20 MG TAB PO SCH (20:27)
[2020-01-26] MEDS: traZODone 50 MG TAB PO PRN (20:27)
[2020-01-27] MEDS: LEVOTHYROXINE 150MCG TABLET (0.15MG) PO SCH (06:09)
[2020-01-27 07:02] VITALS: BP 111/60
[2020-01-27] MEDS: BUPRENORPHINE/NALOXONE 8-2MG SUBLINGUAL TABLET(SUBOXONE) SL SCH ×2 (08:59→16:29)
[2020-01-27] MEDS: OLANZapine 10 MG TAB PO SCH ×2 (08:59→20:18)
[2020-01-27] MEDS: NYSTATIN OINTMENT 15 GM TOP SCH ×4 (09:00→20:19)
[2020-01-27] MEDS: busPIRone 10 MG TAB PO SCH ×2 (09:00→20:18)
[2020-01-27] MEDS: PROPRANOLOL 80 MG LA CAP PO SCH (09:00)
[2020-01-27] MEDS: PARoxetine 20 MG TAB PO SCH (09:01)
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
[2020-01-27] MEDS: hydrOXYzine 50 MG TAB PO PRN ×2 (11:42→17:57)
--- NOTE | 2020-01-27 11:44 | MHIPNPDOC ---
[facility] Progress Note Progress Note DATE OF SERVICE: 01/26/20 HISTORY: Patient is a 39 year old male who presented to the ED after recently being discharged from this [facility]. His chief complaint was paranoid thoughts, auditory hallucinations and in today's interview he stated that he had homicidal thoughts towards his neighbors. VITAL SIGNS: See below. NEW TEST RESULTS: . CURRENT MEDICATIONS: See below. MENTAL STATUS EXAMINATION: Patient is a 39-year old male, who is complaining of paranoid thoughts about his neighbors. He also complained about depressive symptoms with vague suicidal ideation when he initially came in. He is dressed in hospital scrubs and t- shirt. His hygiene and grooming is good. His eye contact is good and he is calm and cooperative in the interview. Speech: Is spontaneous and fluid, normal tone volume and tone Language skills are Good Thought processes including: Linear and goal oriented Thought content: Reports a decrease in auditory hallucinations, continues to reports paranoia and anxiety. Abstract reasoning, and computation: Fair Description of associations: Believes that his neighbors are trying to break in his apartment when he is there. He states that he hears them in his apartment Description of abnormal or psychotic thoughts: See above Judgment: Fair Insight: Fair Orientation: Alert and oriented Recent and remote memory: Intact Attention span and concentration: Good Language: Good Fund of knowledge: Average Mood: Anxious, Worried. Depressed Affect: Flat and Anxious DIAGNOSES: 1. Patient reports that he has a diagnosis of Bipolar Disorder 2. Anxiety Disorder ASSESSMENT: Patient is found walking in the hallways most of the day, reporting that he is often anxious. He appeared mildly nervous and moderately anxious. He had reporting mild auditory hallucinations and stated that if he were discharged he would be very vigilant in his apartment and have homicidal thoughts. He is afraid that they will break into his home. MANAGEMENT PLAN: Patient will continue on current medications. He will be discharged to home or [facility]. At this time he reports that returning home may increase his paranoia and at his interview today he reported fleeting homicidal thoughts towards his neighbors. TIME SPENT: 30 minutes. Vital Signs Vital Signs Date Time Temp Pulse Resp B/P (MAP) Pulse Ox O2 Delivery O2 Flow Rate FiO2 01/27/20 09:00 64 126/69 01/27/20 07:02 97.3 14 97 Room Air Current Medications Current Medications Medications (Trade) Dose Ordered Sig/Santiago Route PRN Reason Start Time Stop Time Status Last Admin Dose Admin Acetaminophen (Tylenol Tab) 650 mg Q6HP PRN PO HEADACHE or DISCOMFORT 01/23/20 13:45 Al Hydrox/Mg Hydrox/Simethicone (Mylanta) 30 ml Q4HP PRN PO HEARTBURN/INDIGESTION 01/23/20 13:45 01/26/20 08:48 Amphetamine/ Dextroamphetamine (Adderall) 20 mg BID@0900,1400 PO 01/23/20 14:00 01/24/20 09:03 DC 01/23/20 16:39 Atorvastatin Calcium (Lipitor) 40 mg QHS PO 01/23/20 21:00 01/26/20 20:27 Buprenorphine/ Naloxone (Suboxone 8/2mg) 1 tab BID@0900,1600 SL 01/24/20 09:00 01/27/20 08:59 Buspirone HCl (Buspar) 10 mg BID PO 01/26/20 09:00 01/27/20 09:00 Docusate Sodium (Colace) 100 mg BIDP PRN PO CONSTIPATION 01/24/20 09:15 01/26/20 11:29 Home Med (Med Rec Complete!) ASDIRECTED XX 01/23/20 15:15 01/23/20 15:18 DC Hydroxyzine HCl (Atarax) 50 mg Q6HP PRN PO anxiety 01/24/20 14:00 01/26/20 17:48 Hydroxyzine HCl (Atarax) 100 mg BIDP PRN PO ANXIETY/AGITATION 01/23/20 14:00 01/24/20 13:33 DC 01/24/20 02:22 Levothyroxine Sodium (Synthroid) 150 mcg DAILY@06 PO 01/24/20 06:00 01/27/20 06:09 Magnesium Hydroxide (Milk Of Magnesia) 30 ml DAILYPRN PRN PO CONSTIPATION 01/23/20 13:45 Nystatin (Mycostatin) groin folds/ chafing region QID TOP 01/24/20 17:00 01/26/20 20:28 Olanzapine (ZyPREXA) 20 mg BID PO 01/23/20 21:00 01/27/20 08:59 Paroxetine HCl (PAXil) 40 mg DAILY PO 01/26/20 09:00 01/27/20 09:01 Polyethylene Glycol (Miralax) 1 pkt DAILYPRN PRN PO CONSTIPATION 01/24/20 09:15 01/26/20 11:29 Propranolol HCl (Inderal La) 160 mg DAILY PO 01/24/20 09:00 01/27/20 09:00 Trazodone HCl (Desyrel) 50 mg QHSP PRN PO INSOMNIA 01/23/20 13:45 01/26/20 20:27 Allergies Coded Allergies: aripiprazole (Verified Adverse Reaction, Intermediate, dystonia, 01/20/20) haloperidol (Verified Adverse Reaction, Intermediate, dystonia, 01/20/20) risperidone (Verified Adverse Reaction, Intermediate, dystonia, 01/20/20) ziprasidone (Verified Adverse Reaction, Intermediate, dystonia, 01/20/20) ADONAY DRISCOLL NP Jan 27, 2020 11:44
--- NOTE | 2020-01-27 12:11 | MHIPNPDOC ---
[facility] Progress Note Progress Note DATE OF SERVICE: 01/27/20 HISTORY: Patient is a 39 year old Male who self-presented to the ED with complaints of paranoia and auditory hallucinations. VITAL SIGNS: See below. NEW TEST RESULTS: CURRENT MEDICATIONS: See below. MENTAL STATUS EXAMINATION: Patient is a 39-year old male, who is reporting continued paranoid thoughts. Reports mild thoughts to harm the neighbors who talk to him through the jacinto Speech: Is fluid and spontaneous. Language skills are good. Thought processes including: linear and goal oriented. Thought content: reporting depression, anxiety, paranoia and thoughts to harm neighbors Abstract reasoning, and computation: fair Description of associations: paranoid thoughts about neighbors Description of abnormal or psychotic thoughts: See above Judgment: Fair Insight: Fair Orientation: alert and oriented Recent and remote memory: Intact Attention span and concentration: Good Language: Good Fund of knowledge: Average Mood: depressed and anxious. Affect: Flat/anxious DIAGNOSES: 1. Bipolar I disorder per patient's history 2. Anxiety Disorder ASSESSMENT: Patient seen today with flat affect and depressed mood. He states that he feels his hearing voices is strange that it only happens at home. He vacillates between believing that it is his neighbors who are trying to possibly trying to break in or that this is all paranoia. He states that his mother tries to validate his feelings but he feels that he is paranoid. If patient wer e to be discharged I do believe that his readmission would be imminent due to this complaint of being very paranoia. MANAGEMENT PLAN: Continue medications as ordered. we still discharge when he is stable. Patient is requesting to be discharged to [facility] due to his paranoid thoughts TIME SPENT: 20 minutes. Vital Signs Vital Signs Date Time Temp Pulse Resp B/P (MAP) Pulse Ox O2 Delivery O2 Flow Rate FiO2 01/27/20 09:00 64 126/69 01/27/20 07:02 97.3 14 97 Room Air Current Medications Current Medications Medications (Trade) Dose Ordered Sig/Santiago Route PRN Reason Start Time Stop Time Status Last Admin Dose Admin Acetaminophen (Tylenol Tab) 650 mg Q6HP PRN PO HEADACHE or DISCOMFORT 01/23/20 13:45 Al Hydrox/Mg Hydrox/Simethicone (Mylanta) 30 ml Q4HP PRN PO HEARTBURN/INDIGESTION 01/23/20 13:45 01/26/20 08:48 Amphetamine/ Dextroamphetamine (Adderall) 20 mg BID@0900,1400 PO 01/23/20 14:00 01/24/20 09:03 DC 01/23/20 16:39 Atorvastatin Calcium (Lipitor) 40 mg QHS PO 01/23/20 21:00 01/26/20 20:27 Buprenorphine/ Naloxone (Suboxone 8/2mg) 1 tab BID@0900,1600 SL 01/24/20 09:00 01/27/20 08:59 Buspirone HCl (Buspar) 10 mg BID PO 01/26/20 09:00 01/27/20 09:00 Docusate Sodium (Colace) 100 mg BIDP PRN PO CONSTIPATION 01/24/20 09:15 01/26/20 11:29 Home Med (Med Rec Complete!) ASDIRECTED XX 01/23/20 15:15 01/23/20 15:18 DC Hydroxyzine HCl (Atarax) 50 mg Q6HP PRN PO anxiety 01/24/20 14:00 01/26/20 17:48 Hydroxyzine HCl (Atarax) 100 mg BIDP PRN PO ANXIETY/AGITATION 01/23/20 14:00 01/24/20 13:33 DC 01/24/20 02:22 Levothyroxine Sodium (Synthroid) 150 mcg DAILY@06 PO 01/24/20 06:00 01/27/20 06:09 Magnesium Hydroxide (Milk Of Magnesia) 30 ml DAILYPRN PRN PO CONSTIPATION 01/23/20 13:45 Nystatin (Mycostatin) groin folds/ chafing region QID TOP 01/24/20 17:00 01/26/20 20:28 Olanzapine (ZyPREXA) 20 mg BID PO 01/23/20 21:00 01/27/20 08:59 Paroxetine HCl (PAXil) 40 mg DAILY PO 01/26/20 09:00 01/27/20 09:01 Polyethylene Glycol (Miralax) 1 pkt DAILYPRN PRN PO CONSTIPATION 01/24/20 09:15 01/26/20 11:29 Propranolol HCl (Inderal La) 160 mg DAILY PO 01/24/20 09:00 01/27/20 09:00 Trazodone HCl (Desyrel) 50 mg QHSP PRN PO INSOMNIA 01/23/20 13:45 01/26/20 20:27 Allergies Coded Allergies: aripiprazole (Verified Adverse Reaction, Intermediate, dystonia, 01/20/20) haloperidol (Verified Adverse Reaction, Intermediate, dystonia, 01/20/20) risperidone (Verified Adverse Reaction, Intermediate, dystonia, 01/20/20) ziprasidone (Verified Adverse Reaction, Intermediate, dystonia, 01/20/20) ADONAY DRISCOLL NP Jan 27, 2020 12:11
[2020-01-27 16:45] VITALS: BP 127/80
[2020-01-27] MEDS: MAALOX 30 ML SUSP *UDC PO PRN (19:28)
[2020-01-27] MEDS: ATORVASTATIN 20 MG TAB PO SCH (20:18)
[2020-01-27] MEDS: traZODone 50 MG TAB PO PRN (20:18)
[2020-01-28] MEDS: LEVOTHYROXINE 150MCG TABLET (0.15MG) PO SCH (06:10)
[2020-01-28 06:27] VITALS: BP 131/84
[2020-01-28] MEDS: OLANZapine 10 MG TAB PO SCH ×2 (08:01→20:02)
[2020-01-28] MEDS: PROPRANOLOL 80 MG LA CAP PO SCH (08:02)
[2020-01-28] MEDS: PARoxetine 20 MG TAB PO SCH (08:03)
[2020-01-28] MEDS: busPIRone 10 MG TAB PO SCH ×2 (08:03→20:02)
[2020-01-28] MEDS: NYSTATIN OINTMENT 15 GM TOP SCH ×4 (08:04→20:03)
[2020-01-28] MEDS: BUPRENORPHINE/NALOXONE 8-2MG SUBLINGUAL TABLET(SUBOXONE) SL SCH ×2 (08:33→16:33)
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
[2020-01-28 19:16] VITALS: BP 133/81
[2020-01-28] MEDS: traZODone 100 MG TAB PO SCH (20:02)
[2020-01-28] MEDS: ATORVASTATIN 20 MG TAB PO SCH (20:02)
[2020-01-29] MEDS: LEVOTHYROXINE 150MCG TABLET (0.15MG) PO SCH (05:47)
[2020-01-29 06:21] VITALS: BP 132/84
[2020-01-29] MEDS: NYSTATIN OINTMENT 15 GM TOP SCH ×4 (08:08→20:03)
[2020-01-29] MEDS: PARoxetine 20 MG TAB PO SCH (08:14)
[2020-01-29] MEDS: PROPRANOLOL 80 MG LA CAP PO SCH (08:14)
[2020-01-29] MEDS: OLANZapine 10 MG TAB PO SCH ×2 (08:14→20:02)
[2020-01-29] MEDS: busPIRone 10 MG TAB PO SCH ×2 (08:14→20:02)
[2020-01-29] MEDS: BUPRENORPHINE/NALOXONE 8-2MG SUBLINGUAL TABLET(SUBOXONE) SL SCH ×2 (08:15→16:07)
[2020-01-29] MEDS: ATORVASTATIN 20 MG TAB PO SCH (20:02)
[2020-01-29] MEDS: traZODone 100 MG TAB PO SCH (20:02)
[2020-01-30] MEDS: hydrOXYzine 50 MG TAB PO PRN ×2 (02:50→20:07)
[2020-01-30] MEDS: LEVOTHYROXINE 150MCG TABLET (0.15MG) PO SCH (05:58)
[2020-01-30 06:36] VITALS: BP 144/92
[2020-01-30] MEDS: PARoxetine 20 MG TAB PO SCH (08:14)
[2020-01-30] MEDS: OLANZapine 10 MG TAB PO SCH ×2 (08:14→20:07)
[2020-01-30] MEDS: busPIRone 10 MG TAB PO SCH ×2 (08:14→20:07)
[2020-01-30] MEDS: PROPRANOLOL 80 MG LA CAP PO SCH (08:14)
[2020-01-30] MEDS: NYSTATIN OINTMENT 15 GM TOP SCH ×4 (08:14→21:00)
[2020-01-30] MEDS: BUPRENORPHINE/NALOXONE 8-2MG SUBLINGUAL TABLET(SUBOXONE) SL SCH ×2 (08:15→15:36)
[2020-01-30] MEDS: NICOTINE 21MG/24HR 1 EA TRANSDERMAL TD SCH (12:43)
[2020-01-30] MEDS: MAALOX 30 ML SUSP *UDC PO PRN (18:21)
[2020-01-30 18:39] VITALS: BP 139/85
[2020-01-30] MEDS: traZODone 100 MG TAB PO SCH (20:07)
[2020-01-30] MEDS: ATORVASTATIN 20 MG TAB PO SCH (20:08)
[2020-01-31] MEDS: LEVOTHYROXINE 150MCG TABLET (0.15MG) PO SCH (05:53)
[2020-01-31 06:27] VITALS: BP 148/82
[2020-01-31] MEDS: OLANZapine 10 MG TAB PO SCH ×2 (08:07→20:00)
[2020-01-31] MEDS: busPIRone 10 MG TAB PO SCH ×2 (08:08→20:00)
[2020-01-31] MEDS: PARoxetine 20 MG TAB PO SCH (08:08)
[2020-01-31] MEDS: PROPRANOLOL 80 MG LA CAP PO SCH (08:10)
[2020-01-31] MEDS: NYSTATIN OINTMENT 15 GM TOP SCH ×4 (08:13→20:01)
[2020-01-31] MEDS: NICOTINE 21MG/24HR 1 EA TRANSDERMAL TD SCH (08:13)
[2020-01-31] MEDS: DOCUSATE SODIUM 100 MG CAP PO PRN (08:38)
[2020-01-31] MEDS: MIRALAX *UNIT DOSE* 17GM PACKET PO PRN (08:38)
[2020-01-31] MEDS: BUPRENORPHINE/NALOXONE 8-2MG SUBLINGUAL TABLET(SUBOXONE) SL SCH ×2 (10:35→15:30)
[2020-01-31] MEDS: MAALOX 30 ML SUSP *UDC PO PRN (12:34)
[2020-01-31 17:52] VITALS: BP 116/80
[2020-01-31] MEDS: hydrOXYzine 50 MG TAB PO PRN (18:12)
[2020-01-31] MEDS: traZODone 100 MG TAB PO SCH (20:00)
[2020-01-31] MEDS: ATORVASTATIN 20 MG TAB PO SCH (20:00)
[2020-01-31] MEDS ORDERED: BUPRENORPHINE/NALOXONE 8-2MG SUBLINGUAL TABLET(SUBOXONE) SL SCH (21:00)
[2020-02-01] MEDS: LEVOTHYROXINE 150MCG TABLET (0.15MG) PO SCH (05:14)
[2020-02-01 06:16] VITALS: BP 127/77
[2020-02-01] MEDS: hydrOXYzine 50 MG TAB PO PRN ×2 (07:25→14:28)
[2020-02-01] MEDS: NICOTINE 21MG/24HR 1 EA TRANSDERMAL TD SCH (08:38)
[2020-02-01] MEDS: OLANZapine 10 MG TAB PO SCH ×2 (08:39→20:07)
[2020-02-01] MEDS: BUPRENORPHINE/NALOXONE 8-2MG SUBLINGUAL TABLET(SUBOXONE) SL SCH ×2 (09:00→15:16)
[2020-02-01] MEDS: PROPRANOLOL 80 MG LA CAP PO SCH (09:00)
[2020-02-01] MEDS: PARoxetine 20 MG TAB PO SCH (09:00)
[2020-02-01] MEDS: busPIRone 10 MG TAB PO SCH ×3 (09:00→20:07)
[2020-02-01] MEDS: NYSTATIN OINTMENT 15 GM TOP SCH ×4 (09:00→20:07)
[2020-02-01] MEDS: MAALOX 30 ML SUSP *UDC PO PRN ×2 (10:10→15:16)
[2020-02-01 12:12] LABS: FREE THYROXINE INDEX 2.8 % (1.4-3.8); THYROID STIMULATING HORMONE 0.998 uIU/ML (0.358-3.740); THYROXINE (T4) 7.9 UG/DL (4.5-12.0)
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
[2020-02-01] MEDS: MIRALAX *UNIT DOSE* 17GM PACKET PO PRN (16:43)
[2020-02-01 18:00] VITALS: BP 140/79
[2020-02-01] MEDS: ATORVASTATIN 20 MG TAB PO SCH (20:07)
[2020-02-01] MEDS: traZODone 100 MG TAB PO SCH (20:07)
[2020-02-02] MEDS: hydrOXYzine 50 MG TAB PO PRN (01:18)
[2020-02-02] MEDS: LEVOTHYROXINE 150MCG TABLET (0.15MG) PO SCH (05:16)
[2020-02-02 05:23] VITALS: BP 149/90
[2020-02-02] MEDS: MAALOX 30 ML SUSP *UDC PO PRN ×2 (05:44→15:28)
[2020-02-02] MEDS: NICOTINE 21MG/24HR 1 EA TRANSDERMAL TD SCH (08:18)
[2020-02-02] MEDS: busPIRone 10 MG TAB PO SCH ×3 (08:18→19:53)
[2020-02-02] MEDS: OLANZapine 10 MG TAB PO SCH (08:18)
[2020-02-02] MEDS: PARoxetine 20 MG TAB PO SCH (08:18)
[2020-02-02] MEDS: BUPRENORPHINE/NALOXONE 8-2MG SUBLINGUAL TABLET(SUBOXONE) SL SCH ×2 (08:18→15:28)
[2020-02-02] MEDS: PROPRANOLOL 80 MG LA CAP PO SCH (08:19)
[2020-02-02] MEDS: NYSTATIN OINTMENT 15 GM TOP SCH ×4 (08:19→19:55)
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
[2020-02-02 17:54] VITALS: BP 142/67
[2020-02-02] MEDS: ATORVASTATIN 20 MG TAB PO SCH (19:53)
[2020-02-02] MEDS: traZODone 100 MG TAB PO SCH (19:53)
[2020-02-02] MEDS ORDERED: OLANZapine 10 MG TAB PO SCH (21:00)
[2020-02-03] MEDS: LEVOTHYROXINE 150MCG TABLET (0.15MG) PO SCH (05:40)
[2020-02-03 06:38] VITALS: BP 138/84
[2020-02-03] MEDS: busPIRone 10 MG TAB PO SCH ×3 (08:11→19:59)
[2020-02-03] MEDS: PARoxetine 20 MG TAB PO SCH (08:11)
[2020-02-03] MEDS: PROPRANOLOL 80 MG LA CAP PO SCH (08:11)
[2020-02-03] MEDS: NICOTINE 21MG/24HR 1 EA TRANSDERMAL TD SCH (08:12)
[2020-02-03] MEDS: BUPRENORPHINE/NALOXONE 8-2MG SUBLINGUAL TABLET(SUBOXONE) SL SCH ×2 (08:12→15:30)
[2020-02-03] MEDS: NYSTATIN OINTMENT 15 GM TOP SCH ×4 (08:12→19:57)
[2020-02-03] MEDS: MAALOX 30 ML SUSP *UDC PO PRN ×2 (09:10→16:02)
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
[2020-02-03 15:11] VITALS: BP 120/74
[2020-02-03] MEDS: NICOTINE POLACRILEX 2 MG GUM PO PRN (16:40)
[2020-02-03] MEDS: hydrOXYzine 50 MG TAB PO PRN (18:58)
[2020-02-03] MEDS: ATORVASTATIN 20 MG TAB PO SCH (19:59)
[2020-02-03] MEDS: traZODone 100 MG TAB PO SCH (19:59)
[2020-02-03] MEDS: OLANZapine 10 MG TAB PO SCH (20:00)
[2020-02-04] MEDS ORDERED: QUEtiapine FUMARATE 25 MG TAB PO ONE (00:30)
[2020-02-04] MEDS: LEVOTHYROXINE 150MCG TABLET (0.15MG) PO SCH (05:40)
[2020-02-04] MEDS: NICOTINE POLACRILEX 2 MG GUM PO PRN ×5 (06:40→22:49)
[2020-02-04 06:51] VITALS: BP 132/89
[2020-02-04] MEDS: busPIRone 10 MG TAB PO SCH ×3 (08:36→21:12)
[2020-02-04] MEDS: PROPRANOLOL 80 MG LA CAP PO SCH (08:36)
[2020-02-04] MEDS: BUPRENORPHINE/NALOXONE 8-2MG SUBLINGUAL TABLET(SUBOXONE) SL SCH ×2 (08:36→16:22)
[2020-02-04] MEDS: PARoxetine 20 MG TAB PO SCH (08:36)
[2020-02-04] MEDS: NYSTATIN OINTMENT 15 GM TOP SCH ×4 (08:37→21:00)
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
[2020-02-04 18:06] VITALS: BP 135/90
[2020-02-04] MEDS: hydrOXYzine 50 MG TAB PO PRN (18:50)
[2020-02-04] MEDS: traZODone 100 MG TAB PO SCH (21:12)
[2020-02-04] MEDS: ATORVASTATIN 20 MG TAB PO SCH (21:12)
[2020-02-04] MEDS: OLANZapine 10 MG TAB PO SCH (21:12)
[2020-02-04] MEDS: PRAZOSIN 1 MG CAP PO SCH (21:13)
[2020-02-05] MEDS: NICOTINE POLACRILEX 2 MG GUM PO PRN ×4 (04:10→19:07)
[2020-02-05] MEDS: LEVOTHYROXINE 150MCG TABLET (0.15MG) PO SCH (06:13)
[2020-02-05 06:46] VITALS: BP 133/75
[2020-02-05] MEDS: NYSTATIN OINTMENT 15 GM TOP SCH ×4 (08:16→20:19)
[2020-02-05] MEDS: BUPRENORPHINE/NALOXONE 8-2MG SUBLINGUAL TABLET(SUBOXONE) SL SCH ×2 (08:19→15:42)
[2020-02-05] MEDS: PARoxetine 20 MG TAB PO SCH (08:20)
[2020-02-05] MEDS: PROPRANOLOL 80 MG LA CAP PO SCH (08:20)
[2020-02-05] MEDS: busPIRone 10 MG TAB PO SCH ×3 (08:21→20:16)
[2020-02-05 18:00] VITALS: BP 151/86
[2020-02-05] MEDS: ATORVASTATIN 20 MG TAB PO SCH (20:15)
[2020-02-05] MEDS: traZODone 100 MG TAB PO SCH (20:16)
[2020-02-05] MEDS: hydrOXYzine 50 MG TAB PO PRN (20:16)
[2020-02-05] MEDS: OLANZapine 10 MG TAB PO SCH (20:16)
[2020-02-05] MEDS: PRAZOSIN 1 MG CAP PO SCH (20:18)
[2020-02-06] MEDS: NICOTINE POLACRILEX 2 MG GUM PO PRN ×8 (02:17→19:39)
[2020-02-06] MEDS: hydrOXYzine 50 MG TAB PO PRN ×2 (02:17→12:32)
[2020-02-06] MEDS: LEVOTHYROXINE 150MCG TABLET (0.15MG) PO SCH (05:56)
[2020-02-06 06:26] VITALS: BP 146/91
[2020-02-06] MEDS: BUPRENORPHINE/NALOXONE 8-2MG SUBLINGUAL TABLET(SUBOXONE) SL SCH ×2 (08:05→15:07)
[2020-02-06] MEDS: PROPRANOLOL 80 MG LA CAP PO SCH (08:07)
[2020-02-06] MEDS: busPIRone 10 MG TAB PO SCH ×3 (08:07→20:25)
[2020-02-06] MEDS: PARoxetine 20 MG TAB PO SCH (08:08)
[2020-02-06] MEDS: NYSTATIN OINTMENT 15 GM TOP SCH ×4 (08:08→20:26)
[2020-02-06] MEDS: MAALOX 30 ML SUSP *UDC PO PRN (10:12)
[2020-02-06 18:00] VITALS: BP 150/84
[2020-02-06] MEDS: MIRALAX *UNIT DOSE* 17GM PACKET PO PRN (18:14)
[2020-02-06] MEDS: ATORVASTATIN 20 MG TAB PO SCH (20:26)
[2020-02-06] MEDS: traZODone 100 MG TAB PO SCH (20:26)
[2020-02-06] MEDS: PRAZOSIN 1 MG CAP PO SCH (20:26)
[2020-02-06] MEDS: OLANZapine 10 MG TAB PO SCH (20:26)
[2020-02-07] MEDS: hydrOXYzine 50 MG TAB PO PRN ×2 (00:42→20:15)
[2020-02-07] MEDS: NICOTINE POLACRILEX 2 MG GUM PO PRN ×9 (00:42→23:17)
[2020-02-07] MEDS: LEVOTHYROXINE 150MCG TABLET (0.15MG) PO SCH (05:47)
[2020-02-07 06:02] VITALS: BP 131/77
[2020-02-07] MEDS: NYSTATIN OINTMENT 15 GM TOP SCH ×4 (08:07→20:15)
[2020-02-07] MEDS: BUPRENORPHINE/NALOXONE 8-2MG SUBLINGUAL TABLET(SUBOXONE) SL SCH ×2 (08:09→15:29)
[2020-02-07] MEDS: PARoxetine 20 MG TAB PO SCH (08:09)
[2020-02-07] MEDS: busPIRone 10 MG TAB PO SCH ×3 (08:09→20:12)
[2020-02-07] MEDS: PROPRANOLOL 80 MG LA CAP PO SCH (08:11)
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
[2020-02-07] MEDS: MAALOX 30 ML SUSP *UDC PO PRN (15:15)
[2020-02-07 16:37] VITALS: BP 136/83
[2020-02-07 16:41] VITALS: BP 123/73
[2020-02-07] MEDS: PRAZOSIN 1 MG CAP PO SCH (20:14)
[2020-02-07] MEDS: traZODone 100 MG TAB PO SCH (20:15)
[2020-02-07] MEDS: OLANZapine 10 MG TAB PO SCH (20:15)
[2020-02-07] MEDS: ATORVASTATIN 20 MG TAB PO SCH (20:15)
[2020-02-07] MEDS ORDERED: QUEtiapine FUMARATE 50 MG TAB PO ONE (22:30)
[2020-02-08] MEDS: NICOTINE POLACRILEX 2 MG GUM PO PRN ×8 (03:26→22:39)
[2020-02-08] MEDS: LEVOTHYROXINE 150MCG TABLET (0.15MG) PO SCH (05:42)
[2020-02-08 06:29] VITALS: BP 138/80
[2020-02-08] MEDS: PARoxetine 20 MG TAB PO SCH (08:25)
[2020-02-08] MEDS: BUPRENORPHINE/NALOXONE 8-2MG SUBLINGUAL TABLET(SUBOXONE) SL SCH ×2 (08:25→15:16)
[2020-02-08] MEDS: busPIRone 10 MG TAB PO SCH ×3 (08:25→20:01)
[2020-02-08] MEDS: NYSTATIN OINTMENT 15 GM TOP SCH ×4 (08:26→20:02)
[2020-02-08] MEDS: PROPRANOLOL 80 MG LA CAP PO SCH (08:26)
[2020-02-08] MEDS: MAALOX 30 ML SUSP *UDC PO PRN (09:40)
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
[2020-02-08 16:17] VITALS: BP 129/75
[2020-02-08] MEDS: ATORVASTATIN 20 MG TAB PO SCH (20:01)
[2020-02-08] MEDS: OLANZapine 10 MG TAB PO SCH (20:01)
[2020-02-08] MEDS: PRAZOSIN 1 MG CAP PO SCH (20:02)
[2020-02-08] MEDS ORDERED: traZODone 50 MG TAB PO SCH (21:00)
[2020-02-09] MEDS: NICOTINE POLACRILEX 2 MG GUM PO PRN ×3 (01:58→08:29)
[2020-02-09] MEDS: LEVOTHYROXINE 150MCG TABLET (0.15MG) PO SCH (05:39)
[2020-02-09] MEDS: MAALOX 30 ML SUSP *UDC PO PRN (06:06)
[2020-02-09 06:13] VITALS: BP 128/82
[2020-02-09 08:29] VITALS: BP 127/64
[2020-02-09] MEDS: PARoxetine 20 MG TAB PO SCH (08:29)
[2020-02-09] MEDS: PROPRANOLOL 80 MG LA CAP PO SCH (08:29)
[2020-02-09] MEDS: busPIRone 10 MG TAB PO SCH (08:29)
[2020-02-09] MEDS: BUPRENORPHINE/NALOXONE 8-2MG SUBLINGUAL TABLET(SUBOXONE) SL SCH (08:29)
[2020-02-09] MEDS: NYSTATIN OINTMENT 15 GM TOP SCH (09:00)
[2020-02-09] MEDS ORDERED: TRAZ-257 PO (09:35)
[2020-02-09] MEDS ORDERED: PROP160C PO (09:35)
[2020-02-09] MEDS ORDERED: BUSP10TA PO (09:35)
[2020-02-09] MEDS ORDERED: OLAN20TA14 PO (09:35)
[2020-02-09] MEDS ORDERED: MINI1CAP PO (09:35)
[2020-02-09] MEDS ORDERED: PARO20TA3 PO (09:35)
[2020-02-09] MEDS ORDERED: ATOR40TA75 PO (09:35)
[2020-02-09] MEDS ORDERED: SYNT150T PO (09:35)
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
--- NOTE | 2020-02-29 12:57 | MHIPN ---
DATE: 01/15/2020 VITAL SIGNS: Blood pressure 114/60, pulse 64, temperature 96.8. CHIEF COMPLAINT: Says is doing okay. SUBJECTIVE: Seen for followup in the presence of staff. Says feels a bit better since coming in and less depressed, less anxious. Says is hoping that he can go to transitional living services ([facility]) residential facility upon discharge. Slept reasonably well. Denies any cravings. MENTAL STATUS EXAMINATION: Neat, cooperative. No agitation. No psychomotor retardation. Coherent. Affect is restricted but reactive. Denies any active suicidal thoughts or intents or any homicidal ideas or intents at present. No evidence of any psychosis. Cognition grossly intact. Judgment and insight improved overall, quite possibly. ASSESSMENT: Bipolar disorder. Feels less anxious somewhat, less depressed. PLAN: Continue current care. He is on olanzapine 20 mg twice a day. Is wondering whether he can split it to, for example, 10 mg in the morning and 30 mg at night. We will look into this. He will continue with the paroxetine, propranolol, and the other medications at present. He is also on Suboxone. He is to be encouraged to participate in activities in the unit. Further recommendations will be made depending on the clinical picture. MARLA
--- NOTE | 2020-02-29 13:03 | MHIPN ---
DATE: 01/16/2020 VITAL SIGNS: Blood pressure 117/61, pulse 60, temperature 97.3. CHIEF COMPLAINT: Says feels okay. SUBJECTIVE: Seen for followup in the presence of staff. Says feels okay, had a good night, moods are better, less anxious, says is hoping for housing soon, but is aware that that may not happen immediately. MENTAL STATUS EXAMINATION: Neat, cooperative, no agitation, no psychomotor retardation, affect restricted but reactive. Denies any thoughts of harming himself or anyone else, currently no evidence of any psychosis. Cognition grossly intact. Judgment and insight improved. ASSESSMENT: Bipolar disorder. PLAN: Continue current care, observations. He will be seen by the assigned clinician tomorrow, when further recommendations will be made. MARLA
== END 2020-02-09 10:45 | disposition home or self-care (01) | DRG 885 ==
LOC: M ED 05:34 → M ED INP 13:38 → M PSY 14:51
PROVIDERS: ADMIT Psychiatry & Neurology Psychiatry; ATTEND Psychiatry & Neurology Psychiatry
DX: F31.9 Bipolar disorder, unspecified (principal); R45.851 Suicidal ideations; F12.10 Cannabis abuse, uncomplicated; F17.210 Nicotine dependence, cigarettes, uncomplicated; Z81.8 Family history of other mental and behavioral disorders; Z81.3 Family history of other psychoactive substance abuse and dependence; Z79.899 Other long term (current) drug therapy; Z88.8 Allergy status to other drugs, medicaments and biological substances; K59.09 Other constipation; I10 Essential (primary) hypertension; E78.5 Hyperlipidemia, unspecified; E03.9 Hypothyroidism, unspecified; F90.9 Attention-deficit hyperactivity disorder, unspecified type; F41.9 Anxiety disorder, unspecified

== ENCOUNTER → 2022-02-04 | Outpatient (CLI) | payer MEDICARE, MEDICAID ==
[~2022-02-04] MED LIST changes: +ALBU6.7H6 INH; +BUPR150T12 PO; -BUPR150T3 PO; -EZET1TAB8 PO; +EZET1TAB98 PO; +GABA-282 PO; +GABA-283 PO; -GABA-843 PO; -GABA-845 PO; +HYDR-3490 PO; -HYDR25TAB PO; +MINI1CAP PO; +MIRT-62 PO; +OLAN1TAB16 PO; +OLAN20TA14 PO; -OLAN5TAB PO; +OMEP40CA4 PO; -OMEP40CA97 PO; +PARO25TA12 PO; -PAXI25TA13 PO; -PROV108A INH; +QUET50TA4 PO; -QUET5TAB PO; -REME15TA PO; +SYNT150T PO
[2022-02-04 15:59] LABS: APPEARANCE, URINE MANUAL CLEAR (CLEAR); BILIRUBIN, URINE MANUAL NEGATIVE (NEGATIVE); COLOR, URINE MANUAL YELLOW (YELLOW); GLUCOSE, URINE (UA) MANUAL NEGATIVE (NEGATIVE); KETONE, URINE MANUAL NEGATIVE (NEGATIVE); NITRITE, URINE MANUAL NEGATIVE (NEGATIVE); PROTEIN, URINE MANUAL NEGATIVE (NEGATIVE); SPECIFIC GRAVITY,URINE MANUAL 1.005 (1.002-1.035); UROBILINOGEN, URINE MANUAL NORMAL (NORMAL)
[2022-02-04 16:00] LABS: BLOOD URINE MANUAL NEGATIVE (NEGATIVE); LEUKOCYTE ESTERASE, URINE MAN NEGATIVE (NEGATIVE)
[2022-02-04 16:09] LABS: BASO % 1.1 % (0.0-1.0); EOS # 0.1 10^3/uL (0.0-0.5); HEMATOCRIT 40.6 % (42.0-52.0); LYMPH # 3.2 10^3/uL (1.5-5.0); LYMPH % 48.8 % (24.0-44.0); MEAN CORPUSCULAR HEMOGLOBIN 32.8 pg (27.0-33.0); MEAN CORPUSCULAR HGB CONC 34.5 g/dl (32.0-36.5); MEAN CORPUSCULAR VOLUME 95.1 fl (80.0-96.0); MONO # 0.7 10^3/uL (0.0-0.8); MONO % 9.9 % (2.0-8.0); NEUTROPHILS # 2.5 10^3/uL (1.5-8.5); NEUTROPHILS % 37.7 % (36.0-66.0); PLATELET COUNT, AUTOMATED 208 10^3/uL (150-450); RED BLOOD COUNT 4.27 10^6/uL (4.30-6.10); WHITE BLOOD COUNT 6.6 10^3/uL (4.0-10.0)
[2022-02-04 16:10] LABS: BASO # 0.1 10^3/uL (0.0-0.2)
[2022-02-04 17:03] LABS: ALBUMIN 3.7 GM/DL (3.2-5.2); ALT/SGPT 55 U/L (12-78); BILIRUBIN,TOTAL 0.5 MG/DL (0.2-1.0); BLOOD UREA NITROGEN 17 MG/DL (7-18); CALCIUM LEVEL 9.2 MG/DL (8.5-10.1); CARBON DIOXIDE LEVEL 30 MEQ/L (21-32); CHLORIDE LEVEL 105 MEQ/L (98-107); CHOLESTEROL LEVEL 185 MG/DL (<200); CHOLESTEROL RISK RATIO 4.021 (<5); CREATININE FOR GFR 0.95 MG/DL (0.70-1.30); FERRITIN 170 NG/ML (26-388); GLOMERULAR FILTRATION RATE > 60.0 (>60); GLUCOSE, FASTING 86 MG/DL (70-100); HDL CHOLESTEROL 46 MG/DL (>40); LDL CHOLESTEROL 85 MG/DL (<100); NON-HDL-C 139 MG/DL; POTASSIUM SERUM 4.5 MEQ/L (3.5-5.1); SODIUM LEVEL 139 MEQ/L (136-145); TOTAL PROTEIN 7.4 GM/DL (6.4-8.2); TRIGLYCERIDES LEVEL 268 MG/DL (<150)
[2022-02-04 17:05] LABS: MALB URINE SIEMENS < 5.0 MG/L; MAU/CREAT RATIO 3.9 MCG/MG (0.0-30.0)
[2022-02-04 17:38] LABS: TOTAL 25(OH) VITAMIN D 22.7 NG/ML (30.0-100.0)
[2022-02-04 17:44] LABS: HEMOGLOBIN A1c 5.4 %
== END ==
LOC: M LAB 14:37
PROVIDERS: ATTEND Internal Medicine
DX: Z00.00 Encounter for general adult medical examination without abnormal findings (principal)

== ENCOUNTER 2022-07-04 01:26 | Emergency (ER) | payer MEDICARE, MEDICAID ==
[~2022-07-04] VITALS: Ht 175.3 cm; Wt 105.8 kg
[~2022-07-04 01:26] MED LIST changes: -PAXI20TA29 PO; +PAXI20TA30 PO; -PAXI30TA11 PO; +PAXI30TA12 PO; -PAXI40TA10 PO; +PAXI40TA12 PO
[2022-07-04] MEDS ORDERED: WELLTAB40 PO (01:34)
[2022-07-04] MEDS ORDERED: TOPR200T PO ×2 (01:34→05:00)
[2022-07-04 02:54] LABS: HEMATOCRIT 47.5 % (42.0-52.0); HEMOGLOBIN 16.5 g/dl (13.5-17.5); MEAN CORPUSCULAR HEMOGLOBIN 32.5 pg (27.0-33.0); MEAN CORPUSCULAR HGB CONC 34.7 g/dl (32.0-36.5); MEAN CORPUSCULAR VOLUME 93.7 fl (80.0-96.0); PLATELET COUNT, AUTOMATED 286 10^3/uL (150-450); RED BLOOD COUNT 5.07 10^6/uL (4.30-6.10); WHITE BLOOD COUNT 11.5 10^3/uL (4.0-10.0)
[2022-07-04 03:07] LABS: AMPHETAMINES LEVEL URINE NEGATIVE (NEGATIVE); BARBITURATES URINE NEGATIVE (NEGATIVE); BENZODIAZEPINES URINE NEGATIVE (NEGATIVE); CANNABINOIDS URINE NEGATIVE (NEGATIVE); COCAINE METABOLITE URINE NEGATIVE (NEGATIVE); METHADONE URINE NEGATIVE (NEGATIVE); OPIATES URINE NEGATIVE (NEGATIVE); PHENCYCLIDINE URINE NEGATIVE (NEGATIVE)
[2022-07-04 03:09] LABS: ETHYL ALCOHOL (ETHANOL) 0.003 % (0.000-0.010)
[2022-07-04 03:11] LABS: ACETAMINOPHEN LEVEL < 2.0 UG/ML (10.0-20.0); SALICYLATE LEVEL < 3.0 MG/DL (<30)
[2022-07-04 03:15] LABS: ALBUMIN 3.8 G/DL (3.2-5.2); ALKALINE PHOSPHATASE 60 U/L (46-116); ALT/SGPT 35 U/L (7.0-40); AST/SGOT 25 U/L (<34); BILIRUBIN,DIRECT 0.2 MG/DL (<0.4); BILIRUBIN,TOTAL 1.2 MG/DL (0.3-1.2); BLOOD UREA NITROGEN 15 MG/DL (9-23); CALCIUM LEVEL 9.5 MG/DL (8.5-10.1); CARBON DIOXIDE LEVEL 27 MMOL/L (20-31); CHLORIDE LEVEL 99 MMOL/L (98-107); CREATININE FOR GFR 0.91 MG/DL (0.70-1.30); GLOMERULAR FILTRATION RATE > 60.0 (>60); GLUCOSE, FASTING 91 MG/DL (60-100); POTASSIUM SERUM 4.2 MMOL/L (3.5-5.1); SODIUM LEVEL 135 MMOL/L (136-145); THYROID STIMULATING HORMONE 2.374 uIU/ML (0.55-4.78)
[2022-07-04 03:49] LABS: TOTAL PROTEIN 7.4 G/DL (5.7-8.2)
[2022-07-04] MEDS ORDERED: SYNT175T2 PO (05:00)
[2022-07-04] MEDS ORDERED: PARO30TA65 PO (05:00)
[2022-07-04] MEDS ORDERED: HOME MED LIST COMPLETE! XX SCH (05:00)
[2022-07-04] MEDS ORDERED: CHLO100T30 PO (05:00)
[2022-07-04] MEDS ORDERED: BUPR150T12 PO (05:00)
[2022-07-04] MEDS ORDERED: LORazepam 1 MG TAB PO ONE ×2 (05:25→08:00)
[2022-07-04] MEDS ORDERED: LEVOTHYROXINE 100MCG TABLET (0.1MG) PO SCH ×3 (06:00→07:39)
[2022-07-04] MEDS ORDERED: LEVOTHYROXINE 75MCG TABLET (0.075MG) PO SCH (06:00)
[2022-07-04 08:37] VITALS: BP 111/70
[2022-07-04] MEDS ORDERED: METH20TA29 (08:48)
[2022-07-04] MEDS ORDERED: METOPROLOL SUCC (TopROL XL) 100MG *XL* TAB PO SCH (09:00)
[2022-07-04] MEDS ORDERED: buPROPion **XL** TABLET 150MG (WELLBUTRIN XL) PO SCH (09:00)
[2022-07-04] MEDS ORDERED: PARoxetine 20MG TABLET PO SCH (09:00)
[2022-07-04] MEDS ORDERED: METHYLPHENIDATE 5 MG TAB PO SCH ×2 (09:00→12:05)
[2022-07-04 15:12] VITALS: BP 124/73
== END 2022-07-04 15:13 ==
LOC: M ED 01:26
DX: R45.851 Suicidal ideations (principal); F32.A Depression, unspecified; F17.210 Nicotine dependence, cigarettes, uncomplicated; Z79.899 Other long term (current) drug therapy; Z79.890 Hormone replacement therapy; Z88.8 Allergy status to other drugs, medicaments and biological substances; Z91.51 Personal history of suicidal behavior

== ENCOUNTER 2022-11-20 19:43 | Inpatient (IN) | payer MEDICARE, MEDICAID ==
[~2022-11-20] VITALS: Ht 172.7 cm; Wt 106.8 kg
[~2022-11-20 19:43] MED LIST changes: +CHLO100T30 PO; +FLUT50SP17; -FLUTISP; +METH20TA29; +PARO30TA65 PO; +SYNT175T2 PO
[2022-11-20] MEDS ORDERED: KLON1TAB PO (20:00)
[2022-11-20] MEDS ORDERED: FOCA25CA PO (20:00)
[2022-11-20] MEDS ORDERED: TRAZ1TAB14 PO (20:00)
[2022-11-20] MEDS ORDERED: VITA1CAP25 PO (20:00)
[2022-11-20] MEDS ORDERED: PROP40TA62 PO (20:00)
[2022-11-20] MEDS: PROPRANOLOL 20 MG TAB PO SCH (21:00)
[2022-11-20 23:10] LABS: MEAN CORPUSCULAR HEMOGLOBIN 33.1 pg (27.0-33.0); MEAN CORPUSCULAR VOLUME 97.1 fl (80.0-96.0); PLATELET COUNT, AUTOMATED 223 10^3/uL (150-450); RED BLOOD COUNT 4.84 10^6/uL (4.30-6.10); WHITE BLOOD COUNT 6.3 10^3/uL (4.0-10.0)
[2022-11-20] MEDS ORDERED: WELLTAB40 PO (23:20)
[2022-11-20] MEDS ORDERED: TRAZ-257 PO (23:20)
[2022-11-20] MEDS ORDERED: OMEP40CA5 PO (23:22)
[2022-11-20] MEDS ORDERED: ATOR1TAB21 PO (23:22)
[2022-11-20] MEDS ORDERED: HOME MED LIST COMPLETE! XX SCH (23:25)
[2022-11-20 23:37] LABS: ETHYL ALCOHOL (ETHANOL) < 0.003 % (0.000-0.010)
[2022-11-20 23:38] LABS: ACETAMINOPHEN LEVEL < 2.0 UG/ML (10.0-20.0); ALBUMIN 3.9 G/DL (3.2-5.2); ALKALINE PHOSPHATASE 61 U/L (46-116); ALT/SGPT 28 U/L (7.0-40); AST/SGOT 31 U/L (<34); BILIRUBIN,DIRECT 0.1 MG/DL (<0.4); BILIRUBIN,TOTAL 0.7 MG/DL (0.3-1.2); BLOOD UREA NITROGEN 15 MG/DL (9-23); CALCIUM LEVEL 9.5 MG/DL (8.5-10.1); CARBON DIOXIDE LEVEL 28 MMOL/L (20-31); CHLORIDE LEVEL 101 MMOL/L (98-107); CREATININE FOR GFR 0.92 MG/DL (0.70-1.30); GLOMERULAR FILTRATION RATE > 60.0 (>60); GLUCOSE, FASTING 119 MG/DL (60-100); POTASSIUM SERUM 3.7 MMOL/L (3.5-5.1); SALICYLATE LEVEL < 3.0 MG/DL (<30); SODIUM LEVEL 134 MMOL/L (136-145); TOTAL PROTEIN 7.2 G/DL (5.7-8.2)
[2022-11-20 23:55] LABS: AMPHETAMINES LEVEL URINE NEGATIVE (NEGATIVE); BARBITURATES URINE NEGATIVE (NEGATIVE); CANNABINOIDS URINE NEGATIVE (NEGATIVE); COCAINE METABOLITE URINE NEGATIVE (NEGATIVE); METHADONE URINE NEGATIVE (NEGATIVE); OPIATES URINE NEGATIVE (NEGATIVE); PHENCYCLIDINE URINE NEGATIVE (NEGATIVE)
[2022-11-20 23:56] LABS: BENZODIAZEPINES URINE POSITIVE (NEGATIVE)
[2022-11-21] MEDS ORDERED: MAALOX 30 ML SUSP *UDC PO PRN (00:50)
[2022-11-21] MEDS ORDERED: MOM 30ML SUSPENSION UDC PO PRN (00:50)
[2022-11-21] MEDS ORDERED: ACETAMINOPHEN TAB 650MG DOSE (2X325MG) PO PRN (00:50)
[2022-11-21] MEDS: clonazePAM 1 MG TAB PO PRN ×2 (01:30→21:03)
[2022-11-21] MEDS: ATORVASTATIN 20 MG TAB PO SCH ×2 (01:30→21:02)
[2022-11-21 04:48] VITALS: BP 109/57; TEMP 97.8; O2SAT 100
[2022-11-21] MEDS: LEVOTHYROXINE 150MCG TABLET (0.15MG) PO SCH (05:43)
[2022-11-21] MEDS: LEVOTHYROXINE 25MCG TABLET (0.025MG) PO SCH (05:43)
[2022-11-21 08:22] VITALS: BP 123/74
[2022-11-21] MEDS: buPROPion **XL** TABLET 150MG (WELLBUTRIN XL) PO SCH (08:23)
[2022-11-21] MEDS: OMEPRAZOLE 20MG CAP PO SCH (08:23)
[2022-11-21] MEDS: PARoxetine 20MG TABLET PO SCH (08:23)
[2022-11-21] MEDS: PROPRANOLOL 20 MG TAB PO SCH ×3 (08:24→21:02)
[2022-11-21] MEDS: METHYLPHENIDATE 5 MG TAB PO SCH (15:58)
[2022-11-21 18:57] VITALS: BP 116/70; TEMP 97.4
[2022-11-22] MEDS: LEVOTHYROXINE 150MCG TABLET (0.15MG) PO SCH (06:20)
[2022-11-22] MEDS: LEVOTHYROXINE 25MCG TABLET (0.025MG) PO SCH (06:20)
[2022-11-22 06:32] VITALS: BP 133/68; TEMP 97.4; O2SAT 98
[2022-11-22 06:35] LABS: HEMOGLOBIN A1c 4.9 % (4.0-6.0)
[2022-11-22 06:41] LABS: CHOLESTEROL RISK RATIO 3.65 (<5); HDL CHOLESTEROL 52.5 MG/DL (>40); LDL CHOLESTEROL 109.3 MG/DL (<100); NON-HDL-C 139.5 MG/DL
[2022-11-22] MEDS: PARoxetine 20MG TABLET PO SCH (09:51)
[2022-11-22] MEDS: OMEPRAZOLE 20MG CAP PO SCH (09:51)
[2022-11-22] MEDS: METHYLPHENIDATE 5 MG TAB PO SCH ×2 (09:51→14:04)
[2022-11-22] MEDS: buPROPion **XL** TABLET 150MG (WELLBUTRIN XL) PO SCH (09:51)
[2022-11-22 09:54] VITALS: BP 118/72
[2022-11-22] MEDS: PROPRANOLOL 20 MG TAB PO SCH ×3 (09:54→22:34)
[2022-11-22] MEDS: NICOTINE 21MG/24HR 1 EA TRANSDERMAL TD SCH (18:03)
[2022-11-22] MEDS: clonazePAM 1 MG TAB PO PRN (18:54)
[2022-11-22 18:56] VITALS: BP 111/77; TEMP 97.3
[2022-11-22] MEDS: traZODone 50 MG TAB PO PRN (20:49)
[2022-11-22] MEDS: ATORVASTATIN 20 MG TAB PO SCH (20:49)
[2022-11-22 20:50] VITALS: BP 131/75
[2022-11-22 22:12] VITALS: BP 112/63
[2022-11-22 22:31] VITALS: BP 124/86
[2022-11-22] MEDS: BACTRIM 160MG/800MG DS TAB PO SCH (22:54)
[2022-11-23] MEDS: LEVOTHYROXINE 150MCG TABLET (0.15MG) PO SCH (05:33)
[2022-11-23] MEDS: LEVOTHYROXINE 25MCG TABLET (0.025MG) PO SCH (05:33)
[2022-11-23 05:40] VITALS: BP 131/73; TEMP 97.7; O2SAT 99
[2022-11-23] MEDS: PROPRANOLOL 20 MG TAB PO SCH ×3 (08:08→20:46)
[2022-11-23] MEDS: buPROPion **XL** TABLET 150MG (WELLBUTRIN XL) PO SCH (08:09)
[2022-11-23] MEDS: PARoxetine 20MG TABLET PO SCH (08:09)
[2022-11-23] MEDS: OMEPRAZOLE 20MG CAP PO SCH (08:09)
[2022-11-23] MEDS: BACTRIM 160MG/800MG DS TAB PO SCH ×2 (08:09→20:49)
[2022-11-23] MEDS: METHYLPHENIDATE 5 MG TAB PO SCH ×2 (08:09→13:24)
[2022-11-23] MEDS: NICOTINE 21MG/24HR 1 EA TRANSDERMAL TD SCH (08:12)
[2022-11-23] MEDS: clonazePAM 1 MG TAB PO PRN (16:02)
[2022-11-23 18:00] VITALS: BP 140/90; TEMP 97.6
[2022-11-23] MEDS: OLANZapine ORAL DISINTEGRATING TAB 5MG PO PRN (18:51)
[2022-11-23 20:44] VITALS: BP 128/78
[2022-11-23] MEDS: traZODone 50 MG TAB PO PRN (20:49)
[2022-11-23] MEDS: ATORVASTATIN 20 MG TAB PO SCH (20:50)
[2022-11-24] MEDS: LEVOTHYROXINE 150MCG TABLET (0.15MG) PO SCH (05:36)
[2022-11-24] MEDS: LEVOTHYROXINE 25MCG TABLET (0.025MG) PO SCH (05:37)
[2022-11-24 06:24] VITALS: BP 121/83; TEMP 97.4; O2SAT 98
[2022-11-24] MEDS: PROPRANOLOL 20 MG TAB PO SCH ×3 (08:16→20:01)
[2022-11-24] MEDS: buPROPion **XL** TABLET 150MG (WELLBUTRIN XL) PO SCH (08:16)
[2022-11-24] MEDS: BACTRIM 160MG/800MG DS TAB PO SCH ×2 (08:16→20:01)
[2022-11-24] MEDS: OMEPRAZOLE 20MG CAP PO SCH (08:16)
[2022-11-24] MEDS: NICOTINE 21MG/24HR 1 EA TRANSDERMAL TD SCH (08:16)
[2022-11-24] MEDS: METHYLPHENIDATE 5 MG TAB PO SCH ×2 (08:16→13:08)
[2022-11-24 18:00] VITALS: BP 142/87; TEMP 97.6
[2022-11-24] MEDS: clonazePAM 1 MG TAB PO PRN (18:32)
[2022-11-24] MEDS ORDERED: PARoxetine 20MG TABLET PO SCH (19:00)
[2022-11-24] MEDS: ATORVASTATIN 20 MG TAB PO SCH (20:01)
[2022-11-24] MEDS: traZODone 50 MG TAB PO PRN (20:01)
[2022-11-24] MEDS: PARoxetine 20MG TABLET PO SCH (20:01)
[2022-11-25] MEDS: LEVOTHYROXINE 25MCG TABLET (0.025MG) PO SCH (05:32)
[2022-11-25] MEDS: LEVOTHYROXINE 150MCG TABLET (0.15MG) PO SCH (05:32)
[2022-11-25 06:01] VITALS: BP 146/79; TEMP 97.1; O2SAT 98
[2022-11-25] MEDS: BACTRIM 160MG/800MG DS TAB PO SCH ×2 (08:40→20:00)
[2022-11-25] MEDS: PROPRANOLOL 20 MG TAB PO SCH ×3 (08:41→20:00)
[2022-11-25] MEDS: METHYLPHENIDATE 5 MG TAB PO SCH ×2 (08:42→13:44)
[2022-11-25] MEDS: NICOTINE 21MG/24HR 1 EA TRANSDERMAL TD SCH (08:42)
[2022-11-25] MEDS: buPROPion **XL** TABLET 150MG (WELLBUTRIN XL) PO SCH (08:42)
[2022-11-25] MEDS: OMEPRAZOLE 20MG CAP PO SCH (08:42)
[2022-11-25 15:41] VITALS: BP 144/84; TEMP 97.2; O2SAT 100
[2022-11-25] MEDS: ATORVASTATIN 20 MG TAB PO SCH (20:00)
[2022-11-25] MEDS: clonazePAM 1 MG TAB PO PRN (20:00)
[2022-11-25] MEDS: traZODone 50 MG TAB PO PRN (20:00)
[2022-11-25] MEDS: PARoxetine 20MG TABLET PO SCH (20:01)
[2022-11-26] MEDS: LEVOTHYROXINE 25MCG TABLET (0.025MG) PO SCH (05:57)
[2022-11-26] MEDS: LEVOTHYROXINE 150MCG TABLET (0.15MG) PO SCH (05:57)
[2022-11-26 06:33] VITALS: BP 116/83; TEMP 97.2; O2SAT 99
[2022-11-26] MEDS: PROPRANOLOL 20 MG TAB PO SCH ×3 (08:25→21:10)
[2022-11-26] MEDS: BACTRIM 160MG/800MG DS TAB PO SCH ×2 (08:26→21:10)
[2022-11-26] MEDS: OMEPRAZOLE 20MG CAP PO SCH (08:26)
[2022-11-26] MEDS: buPROPion **XL** TABLET 150MG (WELLBUTRIN XL) PO SCH (08:26)
[2022-11-26] MEDS: METHYLPHENIDATE 5 MG TAB PO SCH ×2 (08:26→13:28)
[2022-11-26] MEDS: NICOTINE 21MG/24HR 1 EA TRANSDERMAL TD SCH (09:00)
[2022-11-26] MEDS: clonazePAM 1 MG TAB PO PRN ×2 (12:32→21:11)
[2022-11-26] MEDS: OLANZapine ORAL DISINTEGRATING TAB 5MG PO PRN (16:45)
[2022-11-26 17:32] VITALS: BP 151/75; TEMP 97; O2SAT 98
[2022-11-26] MEDS: ATORVASTATIN 20 MG TAB PO SCH (21:10)
[2022-11-26] MEDS: PARoxetine 20MG TABLET PO SCH (21:10)
[2022-11-26] MEDS: traZODone 50 MG TAB PO PRN (21:11)
[2022-11-27] MEDS: LEVOTHYROXINE 150MCG TABLET (0.15MG) PO SCH (05:41)
[2022-11-27] MEDS: LEVOTHYROXINE 25MCG TABLET (0.025MG) PO SCH (05:41)
[2022-11-27 06:12] VITALS: BP 135/74; TEMP 96.9; O2SAT 99
[2022-11-27] MEDS ORDERED: FOCA25CA PO (08:00)
[2022-11-27] MEDS ORDERED: SYNT175T2 PO (08:00)
[2022-11-27] MEDS ORDERED: CHLO100T30 PO (08:00)
[2022-11-27] MEDS ORDERED: PROP40TA62 PO (08:00)
[2022-11-27] MEDS ORDERED: WELLTAB40 PO (08:00)
[2022-11-27] MEDS ORDERED: KLON1TAB PO (08:00)
[2022-11-27] MEDS ORDERED: OMEP40CA5 PO (08:00)
[2022-11-27] MEDS ORDERED: BACTDSTA PO (08:00)
[2022-11-27] MEDS ORDERED: TRAZ-257 PO (08:00)
[2022-11-27] MEDS ORDERED: PARO30TA65 PO (08:00)
[2022-11-27] MEDS: buPROPion **XL** TABLET 150MG (WELLBUTRIN XL) PO SCH (08:08)
[2022-11-27] MEDS: BACTRIM 160MG/800MG DS TAB PO SCH (08:08)
[2022-11-27] MEDS: OMEPRAZOLE 20MG CAP PO SCH (08:08)
[2022-11-27 08:09] VITALS: BP 135/79
[2022-11-27] MEDS: METHYLPHENIDATE 5 MG TAB PO SCH (08:09)
[2022-11-27] MEDS: PROPRANOLOL 20 MG TAB PO SCH (08:09)
[2022-11-27] MEDS: NICOTINE 21MG/24HR 1 EA TRANSDERMAL TD SCH (08:13)
[2022-11-27] MEDS: clonazePAM 1 MG TAB PO PRN (09:20)
[2022-11-28] MEDS ORDERED: FOCA25CA PO (14:55)
== END 2022-11-27 10:25 | disposition home or self-care (01) | DRG 885 ==
LOC: M ED 19:43 → M ED INP 11-21 00:47 → M PSY 11-21 03:57
PROVIDERS: ADMIT Student in an Organized Health Care Education/Training Program; ATTEND Student in an Organized Health Care Education/Training Program
DX: F31.30 Bipolar disorder, current episode depressed, mild or moderate severity, unspecified (principal); L02.11 Cutaneous abscess of neck; F90.9 Attention-deficit hyperactivity disorder, unspecified type; R45.850 Homicidal ideations; F41.9 Anxiety disorder, unspecified; R00.1 Bradycardia, unspecified; Z81.1 Family history of alcohol abuse and dependence; Z79.899 Other long term (current) drug therapy; Z88.8 Allergy status to other drugs, medicaments and biological substances; Z20.822 Contact with and (suspected) exposure to COVID-19

== ENCOUNTER → 2022-12-15 | Outpatient (CLI) | payer MEDICARE, MEDICAID ==
[~2022-12-15] MED LIST changes: +BACTDSTA PO; +CLON1TAB17 PO; +FOCA25CA PO; +OMEP40CA5 PO; +PROP40TA62 PO; +TRAZ1TAB14 PO; +VITA1CAP25 PO
== END ==
LOC: M LAB 09:44
PROVIDERS: ATTEND Internal Medicine
DX: E27.40 Unspecified adrenocortical insufficiency (principal)

== ENCOUNTER 2023-09-18 16:06 | Emergency (ER) | payer MEDICARE, MEDICAID ==
[~2023-09-18] VITALS: Ht 172.7 cm; Wt 92.6 kg
[2023-09-18 16:06] VITALS: TEMP 97.6; O2SAT 99
[~2023-09-18 16:06] MED LIST changes: -EFFE150C2 PO; +EFFE150C3 PO; -EFFE37.5 PO; +EFFE37.52 PO; -FLUT50SP17; +FLUTISP; -GABA-283 PO; +GABA-284 PO; -KLON1TAB PO; +KLON1TAB13 PO; -MIRT-62 PO; +MIRT-88 PO
[2023-09-18] MEDS ORDERED: IMIP10TA PO (17:12)
[2023-09-18] MEDS ORDERED: [UNRECOGNIZED DRUG - CODE] PO (17:12)
[2023-09-18] MEDS ORDERED: PARO30TA4 PO (17:12)
[2023-09-18] MEDS ORDERED: PROP120C (17:12)
[2023-09-18 17:15] VITALS: BP 181/104
== END 2023-09-18 18:50 | disposition left against medical advice (07) ==
LOC: M ED 16:06
DX: Z76.0 Encounter for issue of repeat prescription (principal); I10 Essential (primary) hypertension; E78.5 Hyperlipidemia, unspecified; K21.9 Gastro-esophageal reflux disease without esophagitis; F43.10 Post-traumatic stress disorder, unspecified; F41.9 Anxiety disorder, unspecified; F31.9 Bipolar disorder, unspecified; F90.9 Attention-deficit hyperactivity disorder, unspecified type; Z88.8 Allergy status to other drugs, medicaments and biological substances; Z79.899 Other long term (current) drug therapy; Z53.9 Procedure and treatment not carried out, unspecified reason

== ENCOUNTER 2023-09-26 15:26 | Inpatient (IN) | payer MEDICARE, MEDICAID ==
[~2023-09-26] VITALS: Ht 172.7 cm; Wt 97.3 kg
[~2023-09-26 15:26] MED LIST changes: +BUPR-597 PO; -BUPR300T92 PO; +IMIP10TA PO; +PARO30TA4 PO; +[UNRECOGNIZED DRUG - CODE] PO
[2023-09-26 16:11] LABS: HEMOGLOBIN 15.4 g/dl (13.5-17.5); MEAN CORPUSCULAR HEMOGLOBIN 32.4 pg (27.0-33.0); MEAN CORPUSCULAR HGB CONC 34.2 g/dl (32.0-36.5); MEAN CORPUSCULAR VOLUME 94.7 fl (80.0-96.0); PLATELET COUNT, AUTOMATED 256 10^3/uL (150-450); RED BLOOD COUNT 4.75 10^6/uL (4.30-6.10); WHITE BLOOD COUNT 6.7 10^3/uL (4.0-10.0)
[2023-09-26 16:31] LABS: BARBITURATES URINE NEGATIVE (NEGATIVE); BENZODIAZEPINES URINE NEGATIVE (NEGATIVE); COCAINE METABOLITE URINE NEGATIVE (NEGATIVE); METHADONE URINE NEGATIVE (NEGATIVE); OPIATES URINE NEGATIVE (NEGATIVE); PHENCYCLIDINE URINE NEGATIVE (NEGATIVE)
[2023-09-26 16:33] LABS: ETHYL ALCOHOL (ETHANOL) 0.004 % (0.000-0.010)
[2023-09-26 16:35] LABS: SALICYLATE LEVEL < 3.0 MG/DL (<30)
[2023-09-26 16:37] LABS: THYROID STIMULATING HORMONE 0.396 uIU/ML (0.55-4.78)
[2023-09-26 16:44] LABS: ALBUMIN 3.3 G/DL (3.2-5.2); ALKALINE PHOSPHATASE 88 U/L (46-116); ALT/SGPT 19 U/L (7.0-40); AMPHETAMINES LEVEL URINE POSITIVE (NEGATIVE); AST/SGOT 14 U/L (<34); BILIRUBIN,DIRECT 0.1 MG/DL (<0.4); BILIRUBIN,TOTAL 0.4 MG/DL (0.3-1.2); BLOOD UREA NITROGEN 16 MG/DL (9-23); CALCIUM LEVEL 9.3 MG/DL (8.5-10.1); CANNABINOIDS URINE POSITIVE (NEGATIVE); CARBON DIOXIDE LEVEL 29 MMOL/L (20-31); CHLORIDE LEVEL 103 MMOL/L (98-107); CREATININE FOR GFR 0.77 MG/DL (0.70-1.30); GLOMERULAR FILTRATION RATE > 60.0 (>60); GLUCOSE, FASTING 98 MG/DL (60-100); POTASSIUM SERUM 4.1 MMOL/L (3.5-5.1); SODIUM LEVEL 140 MMOL/L (136-145)
[2023-09-26] MEDS: PROPRANOLOL 60MG LA CAP PO SCH (21:00)
[2023-09-26] MEDS: buPROPion **SR TABLET** (ZYBAN) 150MG PO SCH (21:00)
[2023-09-26] MEDS: METHYLPHENIDATE 5 MG TAB PO SCH (21:00)
[2023-09-26] MEDS ORDERED: CLON0.5T2 PO (21:35)
[2023-09-26] MEDS ORDERED: PARO25TA5 PO (21:35)
[2023-09-26] MEDS ORDERED: LEVO175T2 PO (21:37)
[2023-09-26] MEDS ORDERED: TRAZ1TAB14 PO (21:37)
[2023-09-26] MEDS ORDERED: BUPR-71 PO (21:37)
[2023-09-26] MEDS ORDERED: METH20TA29 PO (21:40)
[2023-09-26] MEDS ORDERED: HOME MED LIST COMPLETE! XX SCH (21:45)
[2023-09-27] MEDS: LEVOTHYROXINE 75MCG TABLET (0.075MG) PO SCH (06:21)
[2023-09-27] MEDS: LEVOTHYROXINE 100MCG TABLET (0.1MG) PO SCH (06:21)
[2023-09-27] MEDS ORDERED: MOM 30ML SUSPENSION UDC PO PRN (09:30)
[2023-09-27] MEDS: CLINDAMYCIN TOP 1% SOLN 60ML BTL TOP SCH (09:56)
[2023-09-27] MEDS: PARoxetine 25MG CR TAB (PAXIL CR) PO SCH (09:58)
[2023-09-27 10:08] VITALS: BP 150/69; TEMP 97.5; O2SAT 99
[2023-09-27] MEDS ORDERED: traZODone 50 MG TAB PO SCH (21:00)
[2023-09-28 06:31] VITALS: BP 140/93; TEMP 96.8; O2SAT 99
[2023-09-28] MEDS: PARoxetine 20MG TABLET PO SCH (12:20)
[2023-09-28] MEDS: LEVOTHYROXINE 100MCG TABLET (0.1MG) PO SCH (13:26)
[2023-09-28] MEDS: LEVOTHYROXINE 75MCG TABLET (0.075MG) PO SCH (13:26)
[2023-09-28] MEDS: LIDOCAINE 5% (LIDODERM) PATCH TD SCH (15:36)
[2023-09-28 15:45] VITALS: BP 158/86; TEMP 98.5; O2SAT 100
[2023-09-28] MEDS: METHYLPHENIDATE 5 MG TAB PO SCH (15:56)
[2023-09-28] MEDS: carisoprodoL 350 MG TAB PO ONE (16:51)
[2023-09-28] MEDS: BACTRIM 160MG/800MG DS TAB PO SCH (20:04)
[2023-09-28] MEDS: CLINDAMYCIN TOP 1% SOLN 60ML BTL TOP SCH (20:04)
[2023-09-28] MEDS: ATORVASTATIN 20 MG TAB PO SCH (20:05)
[2023-09-28] MEDS: traZODone 50 MG TAB PO PRN (20:05)
[2023-09-28] MEDS: PROPRANOLOL 60MG LA CAP PO SCH (20:05)
[2023-09-28] MEDS ORDERED: METHYLPHENIDATE 5 MG TAB PO SCH (21:00)
[2023-09-28 21:16] VITALS: BP 118/90
[2023-09-29 06:39] VITALS: BP 117/67; TEMP 97.8; O2SAT 100
[2023-09-29] MEDS: buPROPion **XL** TABLET 150MG (WELLBUTRIN XL) PO SCH (08:59)
[2023-09-29] MEDS ORDERED: METHYLPHENIDATE ER 18MG TABLET (CONCERTA) PO SCH ×2 (09:00)
[2023-09-29] MEDS: IBUPROFEN 400MG TAB PO PRN (09:53)
[2023-09-29] MEDS: ACETAMINOPHEN TAB 650MG DOSE (2X325MG) PO PRN (15:22)
[2023-09-29 18:00] VITALS: BP 134/86; TEMP 97.3; O2SAT 100
[2023-09-29 20:01] VITALS: BP 135/93
[2023-09-29] MEDS: clonazePAM 1 MG TAB PO SCH (20:07)
[2023-09-30 06:57] VITALS: BP 131/70; TEMP 97.4; O2SAT 98
[2023-09-30] MEDS: diphenhydrAMINE 25MG CAP PO PRN (16:29)
[2023-09-30 18:45] VITALS: BP 143/93; TEMP 97.8
[2023-09-30] MEDS: OLANZapine 5 MG TAB PO SCH (20:15)
[2023-10-01 06:34] VITALS: BP 116/58; TEMP 97; O2SAT 97
[2023-10-01] MEDS: METHYLPHENIDATE 5 MG TAB PO SCH (08:07)
[2023-10-01 18:20] VITALS: BP 120/77; TEMP 98.4
[2023-10-02 06:32] VITALS: BP 123/77; TEMP 97.2; O2SAT 98
[2023-10-02] MEDS: METHYLPHENIDATE 5 MG TAB PO SCH (12:38)
[2023-10-02] MEDS: MAALOX 30 ML SUSP *UDC PO PRN (13:58)
[2023-10-02 18:29] VITALS: BP 137/75; TEMP 97.6
[2023-10-02] MEDS: clonazePAM 0.5 MG TAB PO SCH (21:42)
[2023-10-03 06:43] VITALS: BP 109/65; TEMP 97; O2SAT 95
[2023-10-03] MEDS: OMEPRAZOLE 20MG CAP PO SCH (08:10)
[2023-10-03] MEDS: METHYLPHENIDATE 5 MG TAB PO SCH (12:55)
[2023-10-03 16:36] VITALS: BP 120/63; TEMP 98.1; O2SAT 100
[2023-10-03 19:58] VITALS: BP 130/81
[2023-10-04 06:31] VITALS: BP 140/82; TEMP 97.5; O2SAT 97
[2023-10-04 16:47] VITALS: BP 136/89; TEMP 97.8; O2SAT 98
[2023-10-05 06:24] VITALS: BP 127/85; TEMP 97.9; O2SAT 96
[2023-10-05] MEDS: DICLOFENAC EPOLAMINE 1.3% PATCH TOP SCH (11:32)
[2023-10-05 16:14] VITALS: BP 119/68; TEMP 97.5; O2SAT 99
[2023-10-05 21:41] VITALS: BP 124/88
[2023-10-05 21:47] VITALS: BP 124/88
[2023-10-06 06:10] VITALS: BP 136/73; TEMP 97.8; O2SAT 98
[2023-10-06] MEDS ORDERED: OMEP-173 PO (08:26)
[2023-10-06] MEDS ORDERED: DICL1PAT6 TOP (08:26)
[2023-10-06] MEDS ORDERED: PARO20TA3 PO (08:26)
[2023-10-06] MEDS ORDERED: OLAN1TAB16 PO (08:26)
[2023-10-06] MEDS ORDERED: ATOR1TAB21 PO (08:26)
[2023-10-06] MEDS ORDERED: TRAZ-252 PO (08:26)
== END 2023-10-06 10:10 | disposition home or self-care (01) | DRG 881 ==
LOC: M ED 15:26 → M PSY 09-27 09:28 → M ED 09-27 10:04 → M PSY 09-29 14:17
PROVIDERS: ADMIT Psychiatry & Neurology Psychiatry; ATTEND Psychiatry & Neurology Child & Adolescent Psychiatry
DX: F32.A Depression, unspecified (principal); I10 Essential (primary) hypertension; E78.5 Hyperlipidemia, unspecified; K59.03 Drug induced constipation; T40.495A Adverse effect of other synthetic narcotics, initial encounter; E03.9 Hypothyroidism, unspecified; K21.9 Gastro-esophageal reflux disease without esophagitis; M54.6 Pain in thoracic spine; M54.2 Cervicalgia; F51.4 Sleep terrors [night terrors]; G89.29 Other chronic pain; F17.210 Nicotine dependence, cigarettes, uncomplicated; Z81.1 Family history of alcohol abuse and dependence; Z81.8 Family history of other mental and behavioral disorders; Z79.890 Hormone replacement therapy; Z79.899 Other long term (current) drug therapy; Z88.8 Allergy status to other drugs, medicaments and biological substances

== ENCOUNTER 2023-10-13 15:41 | Inpatient (IN) | payer MEDICARE, MEDICAID ==
[~2023-10-13] VITALS: Ht 172.7 cm; Wt 98.0 kg
[~2023-10-13 15:41] MED LIST changes: +BUPR-71 PO; +CLON0.5T2 PO; +DICL1PAT6 TOP; +LEVO175T2 PO; +METH20TA29 PO; +OMEP-173 PO; +PARO25TA5 PO
[2023-10-13] MEDS ORDERED: TRAZ1TAB14 PO (15:54)
[2023-10-13] MEDS ORDERED: OMEP-173 PO (16:37)
[2023-10-13] MEDS ORDERED: CAFF200T PO (16:37)
[2023-10-13] MEDS ORDERED: HOME MED LIST COMPLETE! XX SCH (16:40)
[2023-10-13 16:57] LABS: AMPHETAMINES LEVEL URINE NEGATIVE (NEGATIVE); BARBITURATES URINE NEGATIVE (NEGATIVE); BENZODIAZEPINES URINE NEGATIVE (NEGATIVE); COCAINE METABOLITE URINE NEGATIVE (NEGATIVE); METHADONE URINE NEGATIVE (NEGATIVE); OPIATES URINE NEGATIVE (NEGATIVE); PHENCYCLIDINE URINE NEGATIVE (NEGATIVE)
[2023-10-13 16:58] LABS: HEMATOCRIT 41.7 % (42.0-52.0); HEMOGLOBIN 14.8 g/dl (13.5-17.5); MEAN CORPUSCULAR HEMOGLOBIN 33.4 pg (27.0-33.0); MEAN CORPUSCULAR HGB CONC 35.5 g/dl (32.0-36.5); MEAN CORPUSCULAR VOLUME 94.1 fl (80.0-96.0); PLATELET COUNT, AUTOMATED 212 10^3/uL (150-450); RED BLOOD COUNT 4.43 10^6/uL (4.30-6.10); WHITE BLOOD COUNT 7.1 10^3/uL (4.0-10.0)
[2023-10-13 17:00] LABS: ETHYL ALCOHOL (ETHANOL) < 0.003 % (0.000-0.010)
[2023-10-13 17:01] LABS: ALBUMIN 3.4 G/DL (3.2-5.2); ALKALINE PHOSPHATASE 58 U/L (46-116); ALT/SGPT 85 U/L (7.0-40); AST/SGOT 59 U/L (<34); BILIRUBIN,DIRECT 0.2 MG/DL (<0.4); BILIRUBIN,TOTAL 0.6 MG/DL (0.3-1.2); BLOOD UREA NITROGEN 16 MG/DL (9-23); CANNABINOIDS URINE POSITIVE (NEGATIVE); CARBON DIOXIDE LEVEL 27 MMOL/L (20-31); CHLORIDE LEVEL 106 MMOL/L (98-107); CREATININE FOR GFR 0.73 MG/DL (0.70-1.30); GLOMERULAR FILTRATION RATE > 60.0 (>60); GLUCOSE, FASTING 151 MG/DL (60-100); POTASSIUM SERUM 3.9 MMOL/L (3.5-5.1); SALICYLATE LEVEL < 3.0 MG/DL (<30); SODIUM LEVEL 140 MMOL/L (136-145); TOTAL PROTEIN 6.8 G/DL (5.7-8.2)
[2023-10-13 17:03] LABS: THYROID STIMULATING HORMONE 1.009 uIU/ML (0.55-4.78)
[2023-10-13] MEDS ORDERED: MAALOX 30 ML SUSP *UDC PO PRN (21:45)
[2023-10-13] MEDS ORDERED: MOM 30ML SUSPENSION UDC PO PRN (21:45)
[2023-10-13] MEDS ORDERED: ACETAMINOPHEN TAB 650MG DOSE (2X325MG) PO PRN (21:45)
[2023-10-13] MEDS: ATORVASTATIN 20 MG TAB PO SCH (22:25)
[2023-10-13] MEDS: OLANZapine 5 MG TAB PO SCH (22:25)
[2023-10-13] MEDS: buPROPion **SR TABLET** (ZYBAN) 150MG PO SCH (22:51)
[2023-10-13 23:09] VITALS: BP 112/69; TEMP 96.6; O2SAT 100
[2023-10-14] MEDS: LEVOTHYROXINE 25MCG TABLET (0.025MG) PO SCH (05:57)
[2023-10-14] MEDS: LEVOTHYROXINE 150MCG TABLET (0.15MG) PO SCH (05:57)
[2023-10-14 06:23] VITALS: BP 127/64; TEMP 97.7; O2SAT 98
[2023-10-14 08:06] VITALS: BP 132/82
[2023-10-14] MEDS: PARoxetine 20MG TABLET PO SCH (08:09)
[2023-10-14] MEDS: OMEPRAZOLE 20MG CAP PO SCH (08:09)
[2023-10-14] MEDS: traZODone 50 MG TAB PO SCH ×2 (08:51→20:03)
[2023-10-14] MEDS: IBUPROFEN 400MG TAB PO PRN (09:59)
[2023-10-14] MEDS: diphenhydrAMINE 25MG CAP PO PRN (11:35)
[2023-10-14] MEDS: PROPRANOLOL 60MG LA CAP PO SCH (13:51)
[2023-10-14 18:36] VITALS: BP 137/83; TEMP 97.9
[2023-10-14] MEDS: CARIPRAZINE 1.5MG CAPSULE (VRAYLAR) PO SCH (20:02)
[2023-10-14] MEDS: PRAZOSIN 1 MG CAP PO SCH (20:04)
[2023-10-15 06:17] VITALS: BP 125/80; TEMP 97.5; O2SAT 98
[2023-10-15 07:07] LABS: CHOLESTEROL RISK RATIO 3.65 (<5); HDL CHOLESTEROL 49.5 MG/DL (>40); LDL CHOLESTEROL 107.1 MG/DL (<100); NON-HDL-C 131.5 MG/DL
[2023-10-15 08:01] VITALS: BP 129/86
[2023-10-15] MEDS: CARIPRAZINE 1.5MG CAPSULE (VRAYLAR) PO SCH (12:52)
[2023-10-15 18:35] VITALS: BP 138/83; TEMP 97.5
[2023-10-16 05:56] VITALS: BP 131/83; TEMP 97.3; O2SAT 100
[2023-10-16 18:54] VITALS: BP 140/78; TEMP 98.2
[2023-10-16] MEDS: PRAZOSIN 1 MG CAP PO SCH (20:16)
[2023-10-16] MEDS ORDERED: OLANZapine 5 MG TAB PO PRN (20:25)
[2023-10-17 06:16] VITALS: BP 130/80; TEMP 97.3; O2SAT 98
[2023-10-17 07:34] VITALS: BP 131/88
== END 2023-10-17 08:33 | DRG 885 ==
LOC: M ED 15:41 → M ED INP 20:29 → M PSY 22:58
PROVIDERS: ADMIT Student in an Organized Health Care Education/Training Program; ATTEND Student in an Organized Health Care Education/Training Program
DX: F31.9 Bipolar disorder, unspecified (principal); R45.851 Suicidal ideations; F12.10 Cannabis abuse, uncomplicated; Z81.1 Family history of alcohol abuse and dependence; Z81.8 Family history of other mental and behavioral disorders; F17.200 Nicotine dependence, unspecified, uncomplicated; R45.850 Homicidal ideations; Z79.890 Hormone replacement therapy; Z79.899 Other long term (current) drug therapy; Z88.8 Allergy status to other drugs, medicaments and biological substances; I10 Essential (primary) hypertension; E78.5 Hyperlipidemia, unspecified; E03.9 Hypothyroidism, unspecified; K59.03 Drug induced constipation; K21.9 Gastro-esophageal reflux disease without esophagitis; M54.2 Cervicalgia; M54.6 Pain in thoracic spine; G89.29 Other chronic pain; T40.495A Adverse effect of other synthetic narcotics, initial encounter

== ENCOUNTER 2023-10-25 14:32 | Emergency (ER) | payer MEDICARE, MEDICAID ==
[~2023-10-25] VITALS: Ht 172.7 cm; Wt 95.5 kg
[~2023-10-25 14:32] MED LIST changes: +CAFF200T PO
[2023-10-25 14:33] VITALS: BP 148/98; TEMP 98.6; O2SAT 98
[2023-10-25] MEDS ORDERED: BUPR1FIL (14:40)
[2023-10-25] MEDS ORDERED: ABIL1TAB11 PO (16:21)
== END 2023-10-25 16:33 | disposition home or self-care (01) ==
LOC: M ED 14:32
DX: F31.9 Bipolar disorder, unspecified (principal); Z76.0 Encounter for issue of repeat prescription; I10 Essential (primary) hypertension; F43.10 Post-traumatic stress disorder, unspecified; Z88.8 Allergy status to other drugs, medicaments and biological substances; Z79.811 Long term (current) use of aromatase inhibitors; Z79.899 Other long term (current) drug therapy

== ENCOUNTER 2023-11-06 17:03 | Emergency (ER) | payer MEDICARE, MEDICAID ==
[~2023-11-06] VITALS: Ht 172.7 cm; Wt 104.1 kg
[~2023-11-06 17:03] MED LIST changes: +ABIL1TAB11 PO; +BUPR1FIL SL
[2023-11-06 17:19] VITALS: TEMP 97.6
[2023-11-06 18:24] LABS: HEMOGLOBIN 16.8 g/dl (13.5-17.5); MEAN CORPUSCULAR HEMOGLOBIN 33.5 pg (27.0-33.0); MEAN CORPUSCULAR VOLUME 95.8 fl (80.0-96.0); PLATELET COUNT, AUTOMATED 270 10^3/uL (150-450); RED BLOOD COUNT 5.01 10^6/uL (4.30-6.10); WHITE BLOOD COUNT 8.5 10^3/uL (4.0-10.0)
[2023-11-06 18:26] LABS: AMPHETAMINES LEVEL URINE NEGATIVE (NEGATIVE); BARBITURATES URINE NEGATIVE (NEGATIVE); BENZODIAZEPINES URINE NEGATIVE (NEGATIVE); COCAINE METABOLITE URINE NEGATIVE (NEGATIVE); METHADONE URINE NEGATIVE (NEGATIVE); OPIATES URINE NEGATIVE (NEGATIVE); PHENCYCLIDINE URINE NEGATIVE (NEGATIVE)
[2023-11-06 18:28] LABS: ETHYL ALCOHOL (ETHANOL) < 0.003 % (0.000-0.010)
[2023-11-06 18:30] LABS: ALBUMIN 4.3 G/DL (3.2-5.2); ALKALINE PHOSPHATASE 78 U/L (46-116); ALT/SGPT 46 U/L (7.0-40); AST/SGOT 31 U/L (<34); BILIRUBIN,DIRECT 0.1 MG/DL (<0.4); BILIRUBIN,TOTAL 0.6 MG/DL (0.3-1.2); BLOOD UREA NITROGEN 16 MG/DL (9-23); CALCIUM LEVEL 9.5 MG/DL (8.5-10.1); CARBON DIOXIDE LEVEL 32 MMOL/L (20-31); CHLORIDE LEVEL 103 MMOL/L (98-107); CREATININE FOR GFR 0.89 MG/DL (0.70-1.30); GLOMERULAR FILTRATION RATE > 60.0 (>60); GLUCOSE, FASTING 72 MG/DL (60-100); POTASSIUM SERUM 4.2 MMOL/L (3.5-5.1); SALICYLATE LEVEL < 3.0 MG/DL (<30); SODIUM LEVEL 140 MMOL/L (136-145); TOTAL PROTEIN 7.8 G/DL (5.7-8.2)
[2023-11-06 18:32] LABS: THYROID STIMULATING HORMONE 5.859 uIU/ML (0.55-4.78)
[2023-11-06 18:37] LABS: CANNABINOIDS URINE POSITIVE (NEGATIVE)
[2023-11-06] MEDS: OLANZapine ORAL DISINTEGRATING TAB 5MG PO PRN (20:05)
[2023-11-06] MEDS: OLANZapine 10 MG TAB PO ONE (20:15)
[2023-11-06] MEDS: ARIPiprazole 10 MG TAB PO SCH (20:56)
[2023-11-06] MEDS: OLANZapine 5 MG TAB PO ONE (20:56)
[2023-11-07] MEDS ORDERED: ABIL10TA9 PO ×2 (08:19→12:10)
[2023-11-07] MEDS ORDERED: PROP120C PO (08:19)
[2023-11-07] MEDS ORDERED: BUPR-71 PO (08:19)
[2023-11-07] MEDS ORDERED: COMMENT (08:22)
[2023-11-07] MEDS ORDERED: HOME MED LIST COMPLETE! XX SCH (08:25)
[2023-11-07 12:19] VITALS: BP 142/78; O2SAT 99
== END 2023-11-07 12:20 | disposition home or self-care (01) ==
LOC: M ED 17:03
DX: R45.851 Suicidal ideations (principal); F60.0 Paranoid personality disorder; F31.9 Bipolar disorder, unspecified; R00.1 Bradycardia, unspecified; F43.10 Post-traumatic stress disorder, unspecified; F90.9 Attention-deficit hyperactivity disorder, unspecified type; E78.5 Hyperlipidemia, unspecified; M26.609 Unspecified temporomandibular joint disorder, unspecified side; F12.10 Cannabis abuse, uncomplicated; Z88.8 Allergy status to other drugs, medicaments and biological substances; Z79.899 Other long term (current) drug therapy

== ENCOUNTER 2023-11-11 16:39 | Inpatient (IN) | payer MEDICARE, MEDICAID ==
[~2023-11-11] VITALS: Ht 172.7 cm; Wt 106.7 kg
[~2023-11-11 16:39] MED LIST changes: +ABIL10TA9 PO; +COMMENT
[2023-11-11] MEDS: diphenhydrAMINE 50MG/ML VIAL IM STA (17:36)
[2023-11-11] MEDS: LORazepam 2 MG/ML 1ML VIAL IM STA (17:36)
[2023-11-11] MEDS: OLANZapine INTRAMUSCULAR 10MG VIAL IM ONE (17:43)
[2023-11-11 18:09] LABS: HEMATOCRIT 43.4 % (42.0-52.0); HEMOGLOBIN 15.1 g/dl (13.5-17.5); MEAN CORPUSCULAR HEMOGLOBIN 32.7 pg (27.0-33.0); MEAN CORPUSCULAR HGB CONC 34.8 g/dl (32.0-36.5); MEAN CORPUSCULAR VOLUME 93.9 fl (80.0-96.0); PLATELET COUNT, AUTOMATED 252 10^3/uL (150-450); RED BLOOD COUNT 4.62 10^6/uL (4.30-6.10); WHITE BLOOD COUNT 8.4 10^3/uL (4.0-10.0)
[2023-11-11 18:29] LABS: AMPHETAMINES LEVEL URINE NEGATIVE (NEGATIVE); BARBITURATES URINE NEGATIVE (NEGATIVE); BENZODIAZEPINES URINE NEGATIVE (NEGATIVE); COCAINE METABOLITE URINE NEGATIVE (NEGATIVE); METHADONE URINE NEGATIVE (NEGATIVE); OPIATES URINE NEGATIVE (NEGATIVE); PHENCYCLIDINE URINE NEGATIVE (NEGATIVE)
[2023-11-11 18:31] LABS: ETHYL ALCOHOL (ETHANOL) < 0.003 % (0.000-0.010)
[2023-11-11 18:33] LABS: ALBUMIN 3.7 G/DL (3.2-5.2); ALKALINE PHOSPHATASE 78 U/L (46-116); ALT/SGPT 37 U/L (7.0-40); AST/SGOT 29 U/L (<34); BILIRUBIN,DIRECT 0.1 MG/DL (<0.4); BILIRUBIN,TOTAL 0.6 MG/DL (0.3-1.2); BLOOD UREA NITROGEN 17 MG/DL (9-23); CALCIUM LEVEL 9.3 MG/DL (8.5-10.1); CANNABINOIDS URINE POSITIVE (NEGATIVE); CARBON DIOXIDE LEVEL 26 MMOL/L (20-31); CHLORIDE LEVEL 109 MMOL/L (98-107); CREATININE FOR GFR 0.78 MG/DL (0.70-1.30); GLOMERULAR FILTRATION RATE > 60.0 (>60); GLUCOSE, FASTING 107 MG/DL (60-100); POTASSIUM SERUM 4.5 MMOL/L (3.5-5.1); SALICYLATE LEVEL < 3.0 MG/DL (<30); SODIUM LEVEL 142 MMOL/L (136-145); TOTAL PROTEIN 7.1 G/DL (5.7-8.2)
[2023-11-11 18:35] LABS: THYROID STIMULATING HORMONE 1.486 uIU/ML (0.55-4.78)
[2023-11-12] MEDS ORDERED: NICO2LOZ29 MT (10:14)
[2023-11-12] MEDS ORDERED: ARIP1TAB PO (10:14)
[2023-11-12] MEDS ORDERED: HOME MED LIST COMPLETE! XX SCH (10:15)
[2023-11-12] MEDS: PROPRANOLOL 60MG LA CAP PO SCH ×2 (10:52→20:46)
[2023-11-12] MEDS: OMEPRAZOLE 20MG CAP PO SCH (10:52)
[2023-11-12] MEDS: OLANZapine 5 MG TAB PO SCH (10:52)
[2023-11-12] MEDS: buPROPion (WELLBUTRIN SR) 100 MG SR TAB PO SCH (10:53)
[2023-11-12] MEDS: LORazepam 2 MG TAB PO STA (11:53)
[2023-11-12] MEDS ORDERED: diphenhydrAMINE 25MG CAP PO PRN (17:10)
[2023-11-12] MEDS ORDERED: MAALOX 30 ML SUSP *UDC PO PRN (17:10)
[2023-11-12] MEDS ORDERED: IBUPROFEN 400MG TAB PO PRN (17:10)
[2023-11-12] MEDS ORDERED: ACETAMINOPHEN TAB 650MG DOSE (2X325MG) PO PRN (17:10)
[2023-11-12] MEDS ORDERED: traZODone 50 MG TAB PO PRN (17:10)
[2023-11-12] MEDS ORDERED: MOM 30ML SUSPENSION UDC PO PRN (17:10)
[2023-11-12] MEDS: LORazepam 2 MG TAB PO ONE (18:09)
[2023-11-12 18:56] VITALS: BP 141/84; TEMP 97.1; O2SAT 98
[2023-11-12] MEDS: PARoxetine 20MG TABLET PO SCH (20:39)
[2023-11-12] MEDS: ARIPiprazole 10 MG TAB PO ONE (20:39)
[2023-11-12] MEDS: ATORVASTATIN 20 MG TAB PO SCH (20:40)
[2023-11-12] MEDS: BUPRENORPHINE/NALOXONE 8-2MG SUBLINGUAL TABLET(SUBOXONE) SL ONE (20:40)
[2023-11-12] MEDS: OLANZapine 10 MG TAB PO SCH (20:40)
[2023-11-12] MEDS: traZODone 50 MG TAB PO SCH (20:40)
[2023-11-12 20:55] VITALS: BP 147/78; TEMP 97.9; O2SAT 97
[2023-11-12] MEDS ORDERED: traZODone 50 MG TAB PO SCH (21:00)
[2023-11-12] MEDS ORDERED: ARIPiprazole 10 MG TAB PO SCH ×2 (21:00)
[2023-11-12] MEDS ORDERED: ATORVASTATIN 20 MG TAB PO SCH (21:00)
[2023-11-12] MEDS ORDERED: PARoxetine 20MG TABLET PO SCH (21:00)
[2023-11-12] MEDS: traZODone 100 MG TAB PO ONE (22:22)
[2023-11-12] MEDS: PRAZOSIN 1 MG CAP PO ONE (22:23)
[2023-11-13] MEDS: OLANZapine ORAL DISINTEGRATING TAB 5MG PO PRN (05:07)
[2023-11-13] MEDS: LEVOTHYROXINE 150MCG TABLET (0.15MG) PO SCH (05:53)
[2023-11-13] MEDS ORDERED: LEVOTHYROXINE 150MCG TABLET (0.15MG) PO SCH (06:00)
[2023-11-13 06:20] VITALS: BP 134/62; TEMP 97; O2SAT 97
[2023-11-13] MEDS ORDERED: BUPRENORPHINE/NALOXONE 8-2MG SUBLINGUAL TABLET(SUBOXONE) SL SCH (08:00)
[2023-11-13] MEDS: buPROPion (WELLBUTRIN SR) 100 MG SR TAB PO SCH (08:12)
[2023-11-13 08:13] VITALS: BP 134/62
[2023-11-13] MEDS: OMEPRAZOLE 20MG CAP PO SCH (08:13)
[2023-11-13] MEDS ORDERED: OLAN1TAB20 PO (12:20)
[2023-11-13] MEDS ORDERED: ARIP1TAB PO (12:20)
[2023-11-13] MEDS: BUPRENORPHINE/NALOXONE 8-2MG SUBLINGUAL TABLET(SUBOXONE) SL ONE (12:23)
== END 2023-11-13 15:05 | disposition home or self-care (01) | DRG 885 ==
LOC: M ED 16:39 → M ED INP 11-12 17:08 → M PSY 11-12 18:50
PROVIDERS: ADMIT Student in an Organized Health Care Education/Training Program; ATTEND Student in an Organized Health Care Education/Training Program
DX: F31.30 Bipolar disorder, current episode depressed, mild or moderate severity, unspecified (principal); R45.851 Suicidal ideations; I10 Essential (primary) hypertension; E78.5 Hyperlipidemia, unspecified; E03.9 Hypothyroidism, unspecified; K59.09 Other constipation; Z79.890 Hormone replacement therapy; Z79.899 Other long term (current) drug therapy; Z88.8 Allergy status to other drugs, medicaments and biological substances

== ENCOUNTER → 2023-12-16 | Outpatient (CLI) | payer MEDICARE, MEDICAID ==
[~2023-12-16] MED LIST changes: +ARIP1TAB PO; +NICO2LOZ29 MT; +OLAN1TAB20 PO; -OLAN20TA14; -OLAN20TA14 PO; +OLAN20TA53; +OLAN20TA53 PO
[2023-12-16 09:27] LABS: HEMATOCRIT 38.9 % (42.0-52.0); HEMOGLOBIN 13.6 g/dl (13.5-17.5); MEAN CORPUSCULAR HEMOGLOBIN 33.7 pg (27.0-33.0); MEAN CORPUSCULAR VOLUME 96.3 fl (80.0-96.0); PLATELET COUNT, AUTOMATED 167 10^3/uL (150-450); RED BLOOD COUNT 4.04 10^6/uL (4.30-6.10); WHITE BLOOD COUNT 4.6 10^3/uL (4.0-10.0)
[2023-12-16 09:51] LABS: ALBUMIN 3.4 G/DL (3.2-5.2); ALKALINE PHOSPHATASE 80 U/L (46-116); ALT/SGPT 38 U/L (7.0-40); AST/SGOT 22 U/L (<34); BILIRUBIN,TOTAL 0.4 MG/DL (0.3-1.2); BLOOD UREA NITROGEN 12 MG/DL (9-23); CALCIUM LEVEL 8.9 MG/DL (8.5-10.1); CARBON DIOXIDE LEVEL 29 MMOL/L (20-31); CHLORIDE LEVEL 106 MMOL/L (98-107); CHOLESTEROL LEVEL 138 MG/DL (<200); CHOLESTEROL RISK RATIO 3.68 (<5); CREATININE FOR GFR 0.76 MG/DL (0.70-1.30); FOLATE 15.35 NG/ML (>5.4); GLOMERULAR FILTRATION RATE > 60.0 (>60); GLUCOSE, FASTING 100 MG/DL (60-100); HDL CHOLESTEROL 37.5 MG/DL (>40); LDL CHOLESTEROL 44.3 MG/DL (<100); NON-HDL-C 100.5 MG/DL; POTASSIUM SERUM 4.5 MMOL/L (3.5-5.1); SODIUM LEVEL 141 MMOL/L (136-145); TOTAL 25(OH) VITAMIN D 32.7 NG/ML (20.0-100.0); TOTAL PROTEIN 6.3 G/DL (5.7-8.2); TRIGLYCERIDES LEVEL 281 MG/DL (<150)
[2023-12-16 09:52] LABS: THYROID STIMULATING HORMONE 0.258 uIU/ML (0.55-4.78)
[2023-12-16 09:53] LABS: FREE T4 1.38 NG/DL (0.89-1.76); PROLACTIN 4.52 NG/ML (2.1-17.7)
== END ==
LOC: M EKG 08:13
PROVIDERS: ATTEND Nurse Practitioner Psychiatric/Mental Health
DX: F43.20 Adjustment disorder, unspecified (principal); E07.9 Disorder of thyroid, unspecified; E78.00 Pure hypercholesterolemia, unspecified

== ENCOUNTER 2024-01-12 19:34 | Emergency (ER) | payer MEDICARE, MEDICAID ==
[~2024-01-12] VITALS: Ht 172.7 cm; Wt 107.9 kg
[2024-01-12 19:35] VITALS: BP 138/92; TEMP 97; O2SAT 97
[2024-01-12 21:22] LABS: BASO # 0.1 10^3/uL (0.0-0.2); BASO % 0.9 % (0.0-1.0); EOS # 0.1 10^3/uL (0.0-0.5); EOS % 0.7 % (0.0-3.0); HEMATOCRIT 43.4 % (42.0-52.0); HEMOGLOBIN 15.5 g/dl (13.5-17.5); LYMPH # 3.2 10^3/uL (1.5-5.0); LYMPH % 34.7 % (24.0-44.0); MEAN CORPUSCULAR HEMOGLOBIN 33.4 pg (27.0-33.0); MEAN CORPUSCULAR HGB CONC 35.7 g/dl (32.0-36.5); MEAN CORPUSCULAR VOLUME 93.5 fl (80.0-96.0); MONO # 0.8 10^3/uL (0.0-0.8); MONO % 9.1 % (2.0-8.0); NEUTROPHILS % 54.4 % (36.0-66.0); PLATELET COUNT, AUTOMATED 250 10^3/uL (150-450); RED BLOOD COUNT 4.64 10^6/uL (4.30-6.10); WHITE BLOOD COUNT 9.2 10^3/uL (4.0-10.0)
[2024-01-12 21:42] LABS: LIPASE 38 U/L (12-53)
[2024-01-12 21:43] LABS: CK-MB VALUE MASS 5.6 NG/ML (<3.6)
[2024-01-12 21:44] LABS: ALBUMIN 3.9 G/DL (3.2-5.2); ALKALINE PHOSPHATASE 93 U/L (46-116); ALT/SGPT 32 U/L (7.0-40); AST/SGOT 23 U/L (<34); BILIRUBIN,DIRECT < 0.1 MG/DL (<0.4); BILIRUBIN,TOTAL 0.4 MG/DL (0.3-1.2); BLOOD UREA NITROGEN 17 MG/DL (9-23); CALCIUM LEVEL 9.1 MG/DL (8.5-10.1); CARBON DIOXIDE LEVEL 23 MMOL/L (20-31); CHLORIDE LEVEL 108 MMOL/L (98-107); CREATININE FOR GFR 0.74 MG/DL (0.70-1.30); GLOMERULAR FILTRATION RATE > 60.0 (>60); GLUCOSE, FASTING 107 MG/DL (60-100); POTASSIUM SERUM 4.3 MMOL/L (3.5-5.1); SODIUM LEVEL 138 MMOL/L (136-145); TOTAL PROTEIN 7.5 G/DL (5.7-8.2)
[2024-01-12 21:46] LABS: THYROID STIMULATING HORMONE 6.706 uIU/ML (0.55-4.78)
[2024-01-12 21:57] LABS: CPK CREATINE PHOSPHOKINASE 340 U/L (46-171); MB/CK RELATIVE INDEX 1.64 (< OR =4)
[2024-01-12 23:07] LABS: CK-MB VALUE MASS 5.9 NG/ML (<3.6)
[2024-01-12 23:10] LABS: MB/CK RELATIVE INDEX 1.74 (< OR =4)
== END 2024-01-12 23:44 | disposition left against medical advice (07) ==
LOC: M ED 19:34
DX: Z53.21 Procedure and treatment not carried out due to patient leaving prior to being seen by health care provider (principal)

== ENCOUNTER 2024-01-16 18:38 | Inpatient (IN) | payer MEDICARE, MEDICAID ==
[~2024-01-16] VITALS: Ht 172.7 cm; Wt 107.9 kg
[2024-01-16] MEDS ORDERED: ARIP10TA32 PO (19:30)
[2024-01-16 19:32] LABS: HEMATOCRIT 38.5 % (42.0-52.0); HEMOGLOBIN 13.5 g/dl (13.5-17.5); MEAN CORPUSCULAR HEMOGLOBIN 33.2 pg (27.0-33.0); MEAN CORPUSCULAR HGB CONC 35.1 g/dl (32.0-36.5); MEAN CORPUSCULAR VOLUME 94.6 fl (80.0-96.0); PLATELET COUNT, AUTOMATED 209 10^3/uL (150-450); RED BLOOD COUNT 4.07 10^6/uL (4.30-6.10); WHITE BLOOD COUNT 4.9 10^3/uL (4.0-10.0)
[2024-01-16] MEDS ORDERED: TRAZ1TAB10 PO (19:33)
[2024-01-16] MEDS ORDERED: OLAN1TAB20 PO (19:34)
[2024-01-16] MEDS ORDERED: HOME MED LIST COMPLETE! XX SCH (19:35)
[2024-01-16 19:55] LABS: AMPHETAMINES LEVEL URINE NEGATIVE (NEGATIVE)
[2024-01-16 19:56] LABS: BARBITURATES URINE NEGATIVE (NEGATIVE); BENZODIAZEPINES URINE NEGATIVE (NEGATIVE); COCAINE METABOLITE URINE NEGATIVE (NEGATIVE); METHADONE URINE NEGATIVE (NEGATIVE); OPIATES URINE NEGATIVE (NEGATIVE); PHENCYCLIDINE URINE NEGATIVE (NEGATIVE)
[2024-01-16 19:58] LABS: ETHYL ALCOHOL (ETHANOL) 0.005 % (0.000-0.010)
[2024-01-16 20:00] LABS: ALBUMIN 3.5 G/DL (3.2-5.2); ALKALINE PHOSPHATASE 103 U/L (46-116); ALT/SGPT 29 U/L (7.0-40); AST/SGOT 24 U/L (<34); BILIRUBIN,DIRECT < 0.1 MG/DL (<0.4); BILIRUBIN,TOTAL 0.5 MG/DL (0.3-1.2); BLOOD UREA NITROGEN 18 MG/DL (9-23); CALCIUM LEVEL 9.1 MG/DL (8.5-10.1); CARBON DIOXIDE LEVEL 26 MMOL/L (20-31); CHLORIDE LEVEL 112 MMOL/L (98-107); CREATININE FOR GFR 0.82 MG/DL (0.70-1.30); GLOMERULAR FILTRATION RATE > 60.0 (>60); GLUCOSE, FASTING 141 MG/DL (60-100); POTASSIUM SERUM 4.3 MMOL/L (3.5-5.1); SALICYLATE LEVEL < 3.0 MG/DL (<30); SODIUM LEVEL 143 MMOL/L (136-145); TOTAL PROTEIN 6.8 G/DL (5.7-8.2)
[2024-01-16 20:02] LABS: THYROID STIMULATING HORMONE 1.692 uIU/ML (0.55-4.78)
[2024-01-16 20:04] LABS: CANNABINOIDS URINE POSITIVE (NEGATIVE)
[2024-01-16] MEDS ORDERED: MAALOX 30 ML SUSP *UDC PO PRN (21:20)
[2024-01-16 22:35] VITALS: BP 132/78; TEMP 98.8; O2SAT 97
[2024-01-17 05:46] VITALS: BP 112/57; TEMP 97.3; O2SAT 99
[2024-01-17] MEDS ORDERED: MIRALAX *UNIT DOSE* 17GM PACKET PO PRN (11:10)
[2024-01-17] MEDS: BUPRENORPHINE/NALOXONE 8-2MG SUBLINGUAL TABLET(SUBOXONE) SL SCH (12:00)
[2024-01-17] MEDS: ARIPiprazole 10 MG TAB PO SCH (12:38)
[2024-01-17] MEDS: PARoxetine 20MG TABLET PO SCH (12:38)
[2024-01-17] MEDS: BUPRENORPHINE/NALOXONE 8-2MG SUBLINGUAL TABLET(SUBOXONE) SL ONE ×2 (12:54→17:50)
[2024-01-17] MEDS: OMEPRAZOLE 20MG CAP PO SCH (12:57)
[2024-01-17] MEDS: PROPRANOLOL 60MG LA CAP PO SCH (12:58)
[2024-01-17] MEDS: buPROPion **SR TABLET** (ZYBAN) 150MG PO SCH (13:05)
[2024-01-17] MEDS: METHYLPHENIDATE 5 MG TAB PO SCH (13:12)
[2024-01-17] MEDS: LEVOTHYROXINE 150MCG TABLET (0.15MG) PO SCH (13:15)
[2024-01-17 15:54] VITALS: BP 145/94; TEMP 97.2; O2SAT 100
[2024-01-17] MEDS: OLANZapine ORAL DISINTEGRATING TAB 5MG PO PRN (17:28)
[2024-01-17] MEDS: diphenhydrAMINE 25MG CAP PO PRN (19:19)
[2024-01-17] MEDS: SENOKOT S TAB PO SCH (20:41)
[2024-01-17] MEDS: traZODone 50 MG TAB PO PRN (20:41)
[2024-01-17] MEDS: ATORVASTATIN 20 MG TAB PO SCH (20:41)
[2024-01-18 06:06] VITALS: BP 108/65; TEMP 97; O2SAT 96
[2024-01-18] MEDS: BUPRENORPHINE/NALOXONE 8-2MG SUBLINGUAL TABLET(SUBOXONE) SL SCH (08:23)
[2024-01-18 16:41] VITALS: BP 127/75; TEMP 96.7; O2SAT 99
[2024-01-18] MEDS: MOM 30ML SUSPENSION UDC PO PRN (17:59)
[2024-01-19 05:46] VITALS: BP 137/81; TEMP 97.6; O2SAT 98
[2024-01-19] MEDS: CARIPRAZINE 1.5MG CAPSULE (VRAYLAR) PO SCH (08:11)
[2024-01-19] MEDS: IBUPROFEN 400MG TAB PO PRN (12:26)
[2024-01-19 18:35] VITALS: BP 136/89; TEMP 97.5
[2024-01-19 20:03] VITALS: BP 105/70
[2024-01-19] MEDS: PRAZOSIN 1 MG CAP PO SCH (22:32)
[2024-01-20 06:18] VITALS: BP 130/69; TEMP 97.2; O2SAT 99
[2024-01-20] MEDS: ACETAMINOPHEN TAB 650MG DOSE (2X325MG) PO PRN (11:21)
[2024-01-20 17:42] VITALS: BP 118/63; TEMP 98; O2SAT 97
[2024-01-21 06:55] VITALS: BP 113/65; TEMP 97.1; O2SAT 95
[2024-01-21 06:58] VITALS: BP 96/64; TEMP 96.2; O2SAT 98
[2024-01-21] MEDS ORDERED: MIRA33506 PO (07:48)
[2024-01-21] MEDS ORDERED: ATOR1TAB21 PO (07:48)
[2024-01-21] MEDS ORDERED: OLAN5ZYD PO (07:48)
[2024-01-21] MEDS ORDERED: INDE60CA4 PO (07:48)
[2024-01-21] MEDS ORDERED: OMEP-173 PO (07:48)
[2024-01-21] MEDS ORDERED: PRAZ1CAP PO (07:48)
[2024-01-21] MEDS ORDERED: LEVO150T7 PO (07:48)
[2024-01-21] MEDS ORDERED: BUPR15TASR PO ×2 (07:48→16:41)
[2024-01-21] MEDS ORDERED: VRAY1.5C PO ×2 (07:48→16:41)
[2024-01-21] MEDS ORDERED: SENN-52 PO ×2 (07:48→16:48)
[2024-01-21 07:58] VITALS: BP 107/71
[2024-01-21] MEDS ORDERED: OMEP1CAP73 PO (16:41)
[2024-01-21] MEDS ORDERED: OLAN10TA12 PO (16:41)
[2024-01-21] MEDS ORDERED: PROP60CA PO (16:42)
[2024-01-21] MEDS ORDERED: CHLOR25TA PO (19:02)
== END 2024-01-21 10:27 | disposition home or self-care (01) | DRG 885 ==
LOC: M ED 18:38 → M ED INP 21:19 → M PSY 22:28
PROVIDERS: ADMIT Psychiatry & Neurology Psychiatry; ATTEND Psychiatry & Neurology Psychiatry
DX: F31.9 Bipolar disorder, unspecified (principal); R45.851 Suicidal ideations; F90.9 Attention-deficit hyperactivity disorder, unspecified type; I10 Essential (primary) hypertension; E78.5 Hyperlipidemia, unspecified; E03.9 Hypothyroidism, unspecified; K59.09 Other constipation; K21.9 Gastro-esophageal reflux disease without esophagitis; Z79.890 Hormone replacement therapy; Z79.899 Other long term (current) drug therapy; Z88.8 Allergy status to other drugs, medicaments and biological substances

== ENCOUNTER 2024-01-21 15:41 | Inpatient (IN) | payer MEDICAID, MEDICARE ==
[~2024-01-21] VITALS: Ht 172.7 cm; Wt 111.5 kg
[~2024-01-21 15:41] MED LIST changes: +ARIP10TA32 PO; +BUPR15TASR PO; +GABA-1635 PO; -GABA800T4 PO; +MIRA33506 PO; +OLAN5ZYD PO; +PRAZ1CAP PO; +SENN-52 PO; +VRAY1.5C PO
[2024-01-21] MEDS ORDERED: OLAN10TA12 PO (16:41)
[2024-01-21] MEDS ORDERED: VRAY1.5C PO (16:41)
[2024-01-21] MEDS ORDERED: OMEP1CAP73 PO (16:41)
[2024-01-21] MEDS ORDERED: BUPR15TASR PO (16:41)
[2024-01-21] MEDS ORDERED: PROP60CA PO (16:42)
[2024-01-21] MEDS ORDERED: SENN-52 PO (16:48)
[2024-01-21 17:40] LABS: HEMATOCRIT 37.6 % (42.0-52.0); HEMOGLOBIN 13.4 g/dl (13.5-17.5); MEAN CORPUSCULAR HEMOGLOBIN 33.3 pg (27.0-33.0); MEAN CORPUSCULAR HGB CONC 35.6 g/dl (32.0-36.5); MEAN CORPUSCULAR VOLUME 93.3 fl (80.0-96.0); PLATELET COUNT, AUTOMATED 184 10^3/uL (150-450); RED BLOOD COUNT 4.03 10^6/uL (4.30-6.10)
[2024-01-21] MEDS: OLANZapine ORAL DISINTEGRATING TAB 5MG PO ONE (17:41)
[2024-01-21 17:47] LABS: AMPHETAMINES LEVEL URINE NEGATIVE (NEGATIVE); BARBITURATES URINE NEGATIVE (NEGATIVE); BENZODIAZEPINES URINE NEGATIVE (NEGATIVE); COCAINE METABOLITE URINE NEGATIVE (NEGATIVE); METHADONE URINE NEGATIVE (NEGATIVE); OPIATES URINE NEGATIVE (NEGATIVE); PHENCYCLIDINE URINE NEGATIVE (NEGATIVE)
[2024-01-21 17:49] LABS: ETHYL ALCOHOL (ETHANOL) 0.005 % (0.000-0.010)
[2024-01-21 17:51] LABS: ALBUMIN 3.8 G/DL (3.2-5.2); ALKALINE PHOSPHATASE 65 U/L (46-116); ALT/SGPT 44 U/L (7.0-40); AST/SGOT 37 U/L (<34); BILIRUBIN,DIRECT 0.2 MG/DL (<0.4); BILIRUBIN,TOTAL 0.5 MG/DL (0.3-1.2); BLOOD UREA NITROGEN 16 MG/DL (9-23); CALCIUM LEVEL 9.3 MG/DL (8.5-10.1); CARBON DIOXIDE LEVEL 28 MMOL/L (20-31); CHLORIDE LEVEL 107 MMOL/L (98-107); GLOMERULAR FILTRATION RATE > 60.0 (>60); GLUCOSE, FASTING 89 MG/DL (60-100); POTASSIUM SERUM 4.3 MMOL/L (3.5-5.1); SALICYLATE LEVEL < 3.0 MG/DL (<30); SODIUM LEVEL 139 MMOL/L (136-145)
[2024-01-21 17:53] LABS: THYROID STIMULATING HORMONE 0.633 uIU/ML (0.55-4.78)
[2024-01-21 18:03] LABS: CANNABINOIDS URINE POSITIVE (NEGATIVE)
[2024-01-21] MEDS ORDERED: CHLOR25TA PO (19:02)
[2024-01-21] MEDS ORDERED: HOME MED LIST COMPLETE! XX SCH (19:05)
[2024-01-21] MEDS ORDERED: MAALOX 30 ML SUSP *UDC PO PRN (19:35)
[2024-01-21] MEDS ORDERED: diphenhydrAMINE 25MG CAP PO PRN (19:35)
[2024-01-21 20:20] VITALS: BP 125/87; TEMP 97.1; O2SAT 98
[2024-01-22 06:27] VITALS: BP 144/73; TEMP 97.8; O2SAT 99
[2024-01-22] MEDS ORDERED: CARIPRAZINE 1.5MG CAPSULE (VRAYLAR) PO ONE (09:00)
[2024-01-22] MEDS: buPROPion **SR TABLET** (ZYBAN) 150MG PO SCH (09:06)
[2024-01-22] MEDS: OMEPRAZOLE 20MG CAP PO SCH (09:06)
[2024-01-22] MEDS: CARIPRAZINE 1.5MG CAPSULE (VRAYLAR) PO SCH (09:07)
[2024-01-22] MEDS: METHYLPHENIDATE 5 MG TAB PO SCH (09:07)
[2024-01-22] MEDS: SENOKOT S TAB PO SCH (09:07)
[2024-01-22] MEDS: PARoxetine 20MG TABLET PO SCH (09:07)
[2024-01-22] MEDS: BUPRENORPHINE/NALOXONE 8-2MG SUBLINGUAL TABLET(SUBOXONE) SL SCH (09:23)
[2024-01-22] MEDS: PROPRANOLOL 60MG LA CAP PO SCH (09:23)
[2024-01-22] MEDS: LEVOTHYROXINE 150MCG TABLET (0.15MG) PO SCH (10:27)
[2024-01-22 16:54] VITALS: BP 149/76; TEMP 97.3; O2SAT 98
[2024-01-22] MEDS: OLANZapine ORAL DISINTEGRATING TAB 5MG PO PRN (19:24)
[2024-01-22] MEDS: PRAZOSIN 1 MG CAP PO SCH (20:08)
[2024-01-22] MEDS: ATORVASTATIN 20 MG TAB PO SCH (20:08)
[2024-01-22] MEDS: MOM 30ML SUSPENSION UDC PO PRN (23:09)
[2024-01-23 06:52] VITALS: BP 129/64; TEMP 96.8; O2SAT 96
[2024-01-23] MEDS: MIRALAX *UNIT DOSE* 17GM PACKET PO PRN (10:58)
[2024-01-23] MEDS: CARIPRAZINE 1.5MG CAPSULE (VRAYLAR) PO ONE (11:19)
[2024-01-23 16:00] VITALS: BP 128/88; TEMP 97.6; O2SAT 99
[2024-01-23] MEDS: IBUPROFEN 400MG TAB PO PRN (17:05)
[2024-01-24 06:05] VITALS: BP 138/85; TEMP 96.4; O2SAT 98
[2024-01-24 07:54] VITALS: BP 125/68
[2024-01-24] MEDS: CARIPRAZINE 3MG CAPSULE (VRAYLAR) PO SCH (08:04)
[2024-01-24 15:42] VITALS: BP 137/85; TEMP 97.7; O2SAT 100
[2024-01-25 06:27] VITALS: BP 125/72; TEMP 97.3; O2SAT 96
[2024-01-25 08:09] VITALS: BP 120/75
[2024-01-25 16:02] VITALS: BP 139/80; TEMP 98; O2SAT 100
[2024-01-25] MEDS: ACETAMINOPHEN TAB 650MG DOSE (2X325MG) PO PRN (16:03)
[2024-01-25] MEDS: traZODone 50 MG TAB PO PRN (20:02)
[2024-01-26 06:29] VITALS: BP 119/70; TEMP 97; O2SAT 97
[2024-01-26 08:00] VITALS: BP 126/65
[2024-01-26 16:05] VITALS: BP 136/91; TEMP 97.3; O2SAT 100
[2024-01-27 06:27] VITALS: BP 132/66; TEMP 96.9; O2SAT 97
[2024-01-27 08:06] VITALS: BP 137/73
[2024-01-27] MEDS: CARIPRAZINE 1.5MG CAPSULE (VRAYLAR) PO ONE (09:29)
[2024-01-27 15:54] VITALS: BP 144/89; TEMP 96.5; O2SAT 100
[2024-01-28 06:30] VITALS: BP 145/82; TEMP 97; O2SAT 96
[2024-01-28] MEDS: CARIPRAZINE 1.5MG CAPSULE (VRAYLAR) PO SCH (08:02)
[2024-01-28] MEDS: NICOTINE POLACRILEX 2 MG GUM PO PRN (10:55)
[2024-01-28] MEDS: NEOSPORIN TOP OINT 15GM TOP SCH (10:56)
[2024-01-28 14:44] VITALS: BP 127/86; TEMP 97.5; O2SAT 99
[2024-01-29 06:14] VITALS: BP 119/70; TEMP 97.7; O2SAT 98
[2024-01-29] MEDS ORDERED: TRAZ-252 PO (08:06)
[2024-01-29] MEDS ORDERED: VRAY4.5C PO (08:06)
[2024-01-29] MEDS ORDERED: NEOM28OI TOP (08:06)
[2024-01-29] MEDS ORDERED: NICO2GUM PO (08:06)
[2024-01-29 08:12] VITALS: BP 116/69
== END 2024-01-29 09:38 | disposition home or self-care (01) | DRG 885 ==
LOC: M ED 15:41 → M ED INP 19:32 → M PSY 20:17
PROVIDERS: ADMIT Psychiatry & Neurology Psychiatry; ATTEND Psychiatry & Neurology Psychiatry
DX: F31.9 Bipolar disorder, unspecified (principal); R45.851 Suicidal ideations; E03.9 Hypothyroidism, unspecified; Z81.8 Family history of other mental and behavioral disorders; I10 Essential (primary) hypertension; E78.5 Hyperlipidemia, unspecified; K59.09 Other constipation; F17.290 Nicotine dependence, other tobacco product, uncomplicated; Z59.89 Other problems related to housing and economic circumstances; Z79.890 Hormone replacement therapy; Z79.899 Other long term (current) drug therapy; Z88.8 Allergy status to other drugs, medicaments and biological substances; K21.9 Gastro-esophageal reflux disease without esophagitis; Z76.5 Malingerer [conscious simulation]

== ENCOUNTER → 2024-02-03 | Outpatient (CLI) | payer MEDICARE ==
[~2024-02-03] MED LIST changes: +NEOM28OI TOP; +NICO2GUM PO; +OLAN10TA12 PO; +OMEP1CAP73 PO; +PROP60CA PO; +VRAY4.5C PO
[2024-02-03 11:15] LABS: BASO # 0.1 10^3/uL (0.0-0.2); BASO % 0.8 % (0.0-1.0); EOS # 0.1 10^3/uL (0.0-0.5); HEMATOCRIT 36.6 % (42.0-52.0); HEMOGLOBIN 12.5 g/dl (13.5-17.5); MEAN CORPUSCULAR HGB CONC 34.2 g/dl (32.0-36.5); MEAN CORPUSCULAR VOLUME 96.6 fl (80.0-96.0); MONO # 0.5 10^3/uL (0.0-0.8); MONO % 7.7 % (2.0-8.0); NEUTROPHILS # 3.9 10^3/uL (1.5-8.5); NEUTROPHILS % 59.2 % (36.0-66.0); PLATELET COUNT, AUTOMATED 197 10^3/uL (150-450); RED BLOOD COUNT 3.79 10^6/uL (4.30-6.10); WHITE BLOOD COUNT 6.5 10^3/uL (4.0-10.0)
[2024-02-03 11:45] LABS: ALBUMIN 3.5 G/DL (3.2-5.2); ALKALINE PHOSPHATASE 97 U/L (46-116); ALT/SGPT 43 U/L (7.0-40); AST/SGOT 24 U/L (<34); BILIRUBIN,TOTAL 0.3 MG/DL (0.3-1.2); BLOOD UREA NITROGEN 11 MG/DL (9-23); CALCIUM LEVEL 8.8 MG/DL (8.5-10.1); CARBON DIOXIDE LEVEL 27 MMOL/L (20-31); CHLORIDE LEVEL 111 MMOL/L (98-107); CHOLESTEROL LEVEL 147 MG/DL (<200); CHOLESTEROL RISK RATIO 3.59 (<5); CREATININE FOR GFR 0.88 MG/DL (0.70-1.30); GLOMERULAR FILTRATION RATE > 60.0 (>60); GLUCOSE, FASTING 149 MG/DL (60-100); HDL CHOLESTEROL 40.9 MG/DL (>40); NON-HDL-C 106.1 MG/DL; POTASSIUM SERUM 4.1 MMOL/L (3.5-5.1); SODIUM LEVEL 142 MMOL/L (136-145); TOTAL PROTEIN 6.7 G/DL (5.7-8.2); TRIGLYCERIDES LEVEL 428 MG/DL (<150)
[2024-02-03 11:48] LABS: THYROID STIMULATING HORMONE 1.183 uIU/ML (0.55-4.78)
== END ==
LOC: M LAB 10:29
PROVIDERS: ATTEND Nurse Practitioner Adult Health
DX: Z00.8 Encounter for other general examination (principal); Z79.899 Other long term (current) drug therapy

== ENCOUNTER → 2024-04-01 | Outpatient (REF) | payer MEDICARE ==
[~2024-04-01] MED LIST changes: -ARIP10TA32 PO; +ARIP10TA63 PO; +GABA-1172 PO; -GABA-282 PO; +META-10 PO; -META1TAB22 PO; +MINO-13 PO; -MINO100C80 PO
[2024-04-01 19:20] LABS: BASO # 0.1 10^3/uL (0.0-0.2); BASO % 1.1 % (0.0-1.0); EOS # 0.1 10^3/uL (0.0-0.5); EOS % 1.3 % (0.0-3.0); HEMATOCRIT 45.2 % (42.0-52.0); HEMOGLOBIN 15.5 g/dl (13.5-17.5); LYMPH # 2.4 10^3/uL (1.5-5.0); LYMPH % 43.2 % (24.0-44.0); MEAN CORPUSCULAR HGB CONC 34.3 g/dl (32.0-36.5); MEAN CORPUSCULAR VOLUME 96.2 fl (80.0-96.0); MONO # 0.5 10^3/uL (0.0-0.8); MONO % 8.6 % (2.0-8.0); NEUTROPHILS # 2.6 10^3/uL (1.5-8.5); NEUTROPHILS % 45.6 % (36.0-66.0); PLATELET COUNT, AUTOMATED 227 10^3/uL (150-450); WHITE BLOOD COUNT 5.6 10^3/uL (4.0-10.0)
[2024-04-01 19:22] LABS: ALKALINE PHOSPHATASE 66 U/L (40-129); ALT/SGPT 53 U/L (7.0-40); AST/SGOT 34 U/L (<34); BILIRUBIN,TOTAL 0.6 MG/DL (0.3-1.2); BLOOD UREA NITROGEN 19 MG/DL (9-23); CALCIUM LEVEL 9.3 MG/DL (8.5-10.1); CARBON DIOXIDE LEVEL 32 MMOL/L (20-31); CHLORIDE LEVEL 102 MMOL/L (98-107); CHOLESTEROL LEVEL 207 MG/DL (<200); CREATININE FOR GFR 0.88 MG/DL (0.70-1.30); GLOMERULAR FILTRATION RATE > 60.0 (>60); GLUCOSE, FASTING 79 MG/DL (60-100); HDL CHOLESTEROL 49.2 MG/DL (>40); LDL CHOLESTEROL 80.8 MG/DL (<100); NON-HDL-C 157.8 MG/DL; POTASSIUM SERUM 4.6 MMOL/L (3.5-5.1); SODIUM LEVEL 135 MMOL/L (136-145); TOTAL PROTEIN 8.2 G/DL (5.7-8.2); TRIGLYCERIDES LEVEL 385 MG/DL (<150)
[2024-04-01 19:24] LABS: THYROID STIMULATING HORMONE 3.164 uIU/ML (0.55-4.78); TOTAL 25(OH) VITAMIN D 24.8 NG/ML (20.0-100.0)
== END ==
LOC: M LAB REF 16:44
PROVIDERS: ATTEND Nurse Practitioner Family
DX: E66.3 Overweight (principal); E55.9 Vitamin D deficiency, unspecified; R53.83 Other fatigue; Z11.9 Encounter for screening for infectious and parasitic diseases, unspecified

== ENCOUNTER 2024-04-22 09:41 | Emergency (ER) | payer MEDICARE, OTHER ==
[~2024-04-22] VITALS: Ht 175.3 cm; Wt 114.6 kg
[2024-04-22 09:51] VITALS: BP 128/84; TEMP 96.7; O2SAT 97
== END 2024-04-22 11:08 | disposition home or self-care (01) ==
LOC: M ED 09:41
DX: Z76.0 Encounter for issue of repeat prescription (principal); E03.9 Hypothyroidism, unspecified; F31.9 Bipolar disorder, unspecified; Z88.8 Allergy status to other drugs, medicaments and biological substances; Z79.899 Other long term (current) drug therapy

== ENCOUNTER 2024-08-06 12:27 | Emergency (ER) | payer OTHER ==
[~2024-08-06] VITALS: Ht 172.7 cm; Wt 112.6 kg
[2024-08-06 12:29] VITALS: BP 148/92; TEMP 98.8; O2SAT 100
== END 2024-08-06 12:57 | disposition left against medical advice (07) ==
LOC: M ED 12:27
DX: Z53.21 Procedure and treatment not carried out due to patient leaving prior to being seen by health care provider (principal)

== ENCOUNTER 2024-08-12 02:14 | Emergency (ER) | payer OTHER ==
[~2024-08-12] VITALS: Ht 172.7 cm; Wt 110.7 kg
[2024-08-12 02:15] VITALS: BP 160/101; TEMP 98.7; O2SAT 98
== END 2024-08-12 06:55 | disposition left against medical advice (07) ==
LOC: M ED 02:14
DX: Z53.21 Procedure and treatment not carried out due to patient leaving prior to being seen by health care provider (principal)

== ENCOUNTER 2024-08-14 01:24 | Emergency (ER) | payer OTHER ==
[~2024-08-14] VITALS: Ht 172.7 cm; Wt 112.9 kg
[2024-08-14 01:31] VITALS: BP 133/81; TEMP 96.6; O2SAT 100
== END 2024-08-14 02:29 | disposition left against medical advice (07) ==
LOC: M ED 01:24
DX: Z53.21 Procedure and treatment not carried out due to patient leaving prior to being seen by health care provider (principal)

== ENCOUNTER 2024-08-15 01:33 | Emergency (ER) | payer OTHER ==
[~2024-08-15] VITALS: Ht 172.7 cm; Wt 115.0 kg
[2024-08-15 01:35] VITALS: BP 159/94; TEMP 97.6; O2SAT 99
== END 2024-08-15 07:29 | disposition left against medical advice (07) ==
LOC: M ED 01:33
DX: Z53.21 Procedure and treatment not carried out due to patient leaving prior to being seen by health care provider (principal)

== ENCOUNTER 2024-08-18 01:07 | Emergency (ER) | payer OTHER ==
[~2024-08-18] VITALS: Ht 172.7 cm; Wt 95.3 kg
[2024-08-18 01:09] VITALS: BP 113/71; TEMP 98.3; O2SAT 98
== END 2024-08-18 03:57 | disposition left against medical advice (07) ==
LOC: M ED 01:07
DX: Z53.21 Procedure and treatment not carried out due to patient leaving prior to being seen by health care provider (principal)

== ENCOUNTER → 2024-10-01 | Outpatient (CLI) | payer OTHER ==
[~2024-10-01] MED LIST changes: -AMBI5TAB PO; -BUPR-597 PO; +BUPR-766 PO; +TOPI-256 PO; -TOPI25TA10 PO; +ZOLP-532 PO
[2024-10-01 17:27] LABS: ALBUMIN 3.5 G/DL (3.2-5.2); BILIRUBIN,DIRECT 0.1 MG/DL (<0.4); BILIRUBIN,TOTAL 0.3 MG/DL (0.3-1.2); CHOLESTEROL RISK RATIO 3.07 (<5); HDL CHOLESTEROL 34.5 MG/DL (>40); LDL CHOLESTEROL 32.3 MG/DL (<100); NON-HDL-C 71.5 MG/DL; TOTAL PROTEIN 6.5 G/DL (5.7-8.2)
== END ==
LOC: M LAB 16:30
PROVIDERS: ATTEND Nurse Practitioner Family
DX: E78.5 Hyperlipidemia, unspecified (principal)

== ENCOUNTER 2024-10-02 16:34 | Emergency (ER) | payer OTHER ==
[~2024-10-02] VITALS: Ht 172.7 cm; Wt 114.4 kg
[2024-10-02 16:41] VITALS: BP 132/77; TEMP 98; O2SAT 99
== END 2024-10-02 18:45 | disposition left against medical advice (07) ==
LOC: M ED 16:34
DX: Z53.21 Procedure and treatment not carried out due to patient leaving prior to being seen by health care provider (principal)

== ENCOUNTER 2024-10-11 15:30 | Emergency (ER) | payer OTHER ==
[~2024-10-11] VITALS: Ht 172.7 cm; Wt 113.3 kg
[~2024-10-11 15:30] MED LIST changes: +OLAN20TA74 PO; -ZYPR20TA PO
[2024-10-11 17:25] LABS: BASO % 0.7 % (0.0-1.0); EOS # 0.1 10^3/uL (0.0-0.5); EOS % 1.8 % (0.0-3.0); HEMATOCRIT 38.6 % (42.0-52.0); HEMOGLOBIN 13.2 g/dl (13.5-17.5); LYMPH # 2.1 10^3/uL (1.5-5.0); LYMPH % 35.2 % (24.0-44.0); MEAN CORPUSCULAR HEMOGLOBIN 32.6 pg (27.0-33.0); MEAN CORPUSCULAR HGB CONC 34.2 g/dl (32.0-36.5); MEAN CORPUSCULAR VOLUME 95.3 fl (80.0-96.0); MONO # 0.6 10^3/uL (0.0-0.8); MONO % 9.7 % (2.0-8.0); NEUTROPHILS # 3.1 10^3/uL (1.5-8.5); NEUTROPHILS % 52.4 % (36.0-66.0); PLATELET COUNT, AUTOMATED 191 10^3/uL (150-450); RED BLOOD COUNT 4.05 10^6/uL (4.30-6.10)
[2024-10-11 17:30] LABS: ERYTHROCYTE SEDIMENTATION RATE 14 mm/hr (0-15)
[2024-10-11 17:37] LABS: INR 0.94; PARTIAL THROMBOPLASTIN TIME 26.6 SECONDS (24.8-34.2); PROTHROMBIN TIME 12.9 SECONDS (12.5-14.5)
[2024-10-11 17:54] LABS: ALBUMIN 4.1 G/DL (3.2-5.2); ALKALINE PHOSPHATASE 72 U/L (40-129); ALT/SGPT 42 U/L (7.0-40); AST/SGOT 49 U/L (<34); BILIRUBIN,DIRECT 0.1 MG/DL (<0.4); BILIRUBIN,TOTAL 0.4 MG/DL (0.3-1.2); BLOOD UREA NITROGEN 15 MG/DL (9-23); C REACTIVE PROTEIN QUANTITATIV 0.93 MG/DL (<1.0); CARBON DIOXIDE LEVEL 27 MMOL/L (20-31); CHLORIDE LEVEL 108 MMOL/L (98-107); CREATININE FOR GFR 0.68 MG/DL (0.70-1.30); GLOMERULAR FILTRATION RATE > 90.0 (>60); GLUCOSE, FASTING 87 MG/DL (60-100); POTASSIUM SERUM 3.7 MMOL/L (3.5-5.1); SODIUM LEVEL 144 MMOL/L (136-145)
[2024-10-11 18:00] LABS: PROCALCITONIN <0.04 ng/ml
[2024-10-11 20:34] VITALS: BP 132/71; TEMP 97.4; O2SAT 100
== END 2024-10-11 21:54 | disposition left against medical advice (07) ==
LOC: M ED 15:30
DX: R22.41 Localized swelling, mass and lump, right lower limb (principal); Z88.8 Allergy status to other drugs, medicaments and biological substances; Z79.899 Other long term (current) drug therapy; Z53.9 Procedure and treatment not carried out, unspecified reason

== ENCOUNTER 2024-11-16 16:20 | Emergency (ER) | payer MEDICARE, MEDICAID ==
[~2024-11-16] VITALS: Ht 172.7 cm; Wt 110.7 kg
[~2024-11-16 16:20] MED LIST changes: +BUPR-368 PO; +DEPA250T PO; -DEPA250T2 PO; +DEXM1CAP PO; +DOCU8.6T PO; +IBUP80TA PO; +LISI20TA33 PO; +PERC5TAB12 PO; +VASC1CAP2 PO; +VRAY3CAP PO
[2024-11-16 16:21] VITALS: BP 162/95; TEMP 97.5; O2SAT 96
== END 2024-11-16 17:28 | disposition home or self-care (01) ==
LOC: M ED 16:20
DX: R41.82 Altered mental status, unspecified (principal); Z59.00 Homelessness unspecified; I10 Essential (primary) hypertension; E78.5 Hyperlipidemia, unspecified; F31.9 Bipolar disorder, unspecified; Z88.8 Allergy status to other drugs, medicaments and biological substances; Z79.899 Other long term (current) drug therapy

== ENCOUNTER 2025-02-20 17:29 | Inpatient (IN) | payer MEDICARE, MEDICAID ==
[~2025-02-20] VITALS: Ht 172.7 cm; Wt 114.7 kg
[~2025-02-20 17:29] MED LIST changes: -IBUP-1022 PO; -IBUP1TAB6 PO; +IBUP600T42 PO; +METH54TA13 PO; -METH54TA5 PO; +SFHIBU600 PO
[2025-02-20 18:14] LABS: PLATELET COUNT, AUTOMATED 197 10^3/uL (150-450)
[2025-02-20 18:38] LABS: AMPHETAMINES LEVEL URINE NEGATIVE (NEGATIVE); BARBITURATES URINE NEGATIVE (NEGATIVE); BENZODIAZEPINES URINE NEGATIVE (NEGATIVE); COCAINE METABOLITE URINE NEGATIVE (NEGATIVE); METHADONE URINE NEGATIVE (NEGATIVE); OPIATES URINE NEGATIVE (NEGATIVE); PHENCYCLIDINE URINE NEGATIVE (NEGATIVE)
[2025-02-20 18:40] LABS: ETHYL ALCOHOL (ETHANOL) < 0.003 % (0.000-0.010)
[2025-02-20 18:40] LABS: CANNABINOIDS URINE POSITIVE (NEGATIVE)
[2025-02-20 18:42] LABS: ALT/SGPT 35 U/L (7.0-40); AST/SGOT 28 U/L (<34); CALCIUM LEVEL 8.6 MG/DL (8.5-10.1); CARBON DIOXIDE LEVEL 26 MMOL/L (20-31); CHLORIDE LEVEL 106 MMOL/L (98-107); CREATININE FOR GFR 0.88 MG/DL (0.70-1.30); GLOMERULAR FILTRATION RATE > 90.0 (>60); POTASSIUM SERUM 3.8 MMOL/L (3.5-5.1); SALICYLATE LEVEL < 3.0 MG/DL (<30); SODIUM LEVEL 140 MMOL/L (136-145)
[2025-02-21] MEDS ORDERED: PROPRANOLOL 80MG LA CAP PO SCH (09:00)
[2025-02-21] MEDS ORDERED: CARIPRAZINE 3MG CAPSULE PO SCH (09:00)
[2025-02-21] MEDS ORDERED: PRAZ1CAP PO (12:54)
[2025-02-21] MEDS ORDERED: VRAY6CAP PO (12:54)
[2025-02-21] MEDS ORDERED: PARO20TA4 PO (12:54)
[2025-02-21] MEDS ORDERED: DEXM1CAP14 PO (12:54)
[2025-02-21] MEDS ORDERED: BUPR1SUB5 SL (12:54)
[2025-02-21] MEDS ORDERED: DEXM1CAP2 PO (12:54)
[2025-02-21] MEDS ORDERED: LEVO150T7 PO (12:54)
[2025-02-21] MEDS ORDERED: HOME MED LIST COMPLETE! XX SCH (12:55)
[2025-02-21] MEDS ORDERED: MAALOX 30 ML SUSP *UDC PO PRN (13:35)
[2025-02-21] MEDS ORDERED: MOM 30 ML SUSPENSION UDC PO PRN (13:35)
[2025-02-21] MEDS: buPROPion **XL** 150 MG TABLET PO SCH (13:42)
[2025-02-21] MEDS: BUPRENORPHINE/NALOXONE 8-2MG SUBLINGUAL TABLET(SUBOXONE) SL SCH (13:42)
[2025-02-21 15:36] VITALS: BP 120/80; TEMP 97.2; O2SAT 96
[2025-02-21] MEDS: PROPRANOLOL 80MG LA CAP PO SCH (16:00)
[2025-02-21 16:13] VITALS: BP 104/71
[2025-02-21] MEDS: NICOTINE 14 MG/24 HR TRANSDERMAL TD SCH (16:18)
[2025-02-21] MEDS: CARIPRAZINE 3MG CAPSULE PO SCH (16:18)
[2025-02-21 16:21] VITALS: BP 104/78
[2025-02-21] MEDS: PARoxetine 20MG TABLET PO SCH (20:49)
[2025-02-21] MEDS: ATORVASTATIN 20 MG TAB PO SCH (20:49)
[2025-02-21] MEDS: PRAZOSIN 1 MG CAP PO SCH (20:49)
[2025-02-21] MEDS: traZODone 50 MG TAB PO PRN (20:49)
[2025-02-22] MEDS: LEVOTHYROXINE 150 MCG TABLET (0.15 MG) PO SCH (06:11)
[2025-02-22 06:39] VITALS: BP 117/57; TEMP 97; O2SAT 98
[2025-02-22 08:13] VITALS: BP 132/80
[2025-02-22] MEDS: buPROPion **XL** 150 MG TABLET PO SCH (08:15)
[2025-02-22] MEDS: BUPRENORPHINE/NALOXONE 8-2MG SUBLINGUAL TABLET(SUBOXONE) SL SCH (08:15)
[2025-02-22] MEDS: OMEPRAZOLE 20MG CAP PO SCH (08:15)
[2025-02-22] MEDS: FLUZONE VACCINE TRI PF(25-26) 0.5ML SYRINGE IM.IMMUN ONE (08:25)
[2025-02-22] MEDS: METHYLPHENIDATE ER 18 MG TABLET PO SCH (09:38)
[2025-02-22 14:50] VITALS: BP 102/50; TEMP 97; O2SAT 99
[2025-02-22] MEDS: IBUPROFEN 400 MG TAB PO PRN (17:14)
[2025-02-22] MEDS: OLANZapine 5 MG TAB PO PRN (21:01)
[2025-02-23 06:21] VITALS: BP 98/55; TEMP 97.6; O2SAT 99
[2025-02-23] MEDS: PROPRANOLOL 80MG LA CAP PO SCH ×2 (12:00→13:13)
[2025-02-23] MEDS ORDERED: PROPRANOLOL 80MG LA CAP PO SCH (12:55)
[2025-02-23 13:09] VITALS: BP 119/70
[2025-02-23 14:43] VITALS: BP 103/66; TEMP 97.1; O2SAT 99
[2025-02-23] MEDS: traZODone 50 MG TAB PO PRN (19:58)
[2025-02-24 06:13] VITALS: BP 117/57; TEMP 97.2; O2SAT 98
[2025-02-24 15:25] VITALS: BP 98/56; TEMP 97.2; O2SAT 99
[2025-02-24] MEDS: ACETAMINOPHEN 325 MG TAB PO PRN (17:19)
[2025-02-25 06:32] VITALS: BP 120/75; TEMP 98.2; O2SAT 97
[2025-02-25 15:25] VITALS: BP 112/64; TEMP 97.9; O2SAT 98
[2025-02-26 06:26] VITALS: BP 105/57; TEMP 97.4; O2SAT 100
[2025-02-26 12:06] VITALS: BP 126/67
[2025-02-26 14:57] VITALS: BP 116/65; TEMP 97; O2SAT 98
[2025-02-26] MEDS: LORazepam 1 MG TAB PO PRN (20:25)
[2025-02-27 06:53] VITALS: BP 133/60; TEMP 96.8; O2SAT 98
[2025-02-27 15:12] VITALS: BP 118/63; TEMP 97.3; O2SAT 100
[2025-02-27 20:04] VITALS: BP 118/63
[2025-02-28 06:23] VITALS: BP 96/54; TEMP 97.8; O2SAT 98
== END 2025-02-28 08:23 | DRG 885 ==
LOC: M ED 17:29 → M ED INP 02-21 13:33 → M PSY 02-21 14:59
PROVIDERS: ADMIT Internal Medicine; ATTEND Psychiatry & Neurology Psychiatry
DX: F31.5 Bipolar disorder, current episode depressed, severe, with psychotic features (principal); F41.0 Panic disorder [episodic paroxysmal anxiety]; F11.21 Opioid dependence, in remission; F17.210 Nicotine dependence, cigarettes, uncomplicated; F25.0 Schizoaffective disorder, bipolar type; E78.5 Hyperlipidemia, unspecified; I10 Essential (primary) hypertension; E03.9 Hypothyroidism, unspecified; Z56.0 Unemployment, unspecified; Z79.890 Hormone replacement therapy; Z79.899 Other long term (current) drug therapy; Z88.8 Allergy status to other drugs, medicaments and biological substances